=== PATIENT | female | born 1950 | race Caucasian/White ===

== ENCOUNTER 2017-07-27 10:15 | Outpatient (CLI) | payer MEDICARE, BC, SELFPAY ==
[2017-07-27 10:06] VITALS: BMI 27.3
[2017-07-27 11:03] LABS: Chol/HDL Ratio 2.2 (1-3.5); Cholesterol 151 mg/dL (140-200); HDL Cholesterol 68 mg/dL (29-89); LDL Cholesterol 71 mg/dL (0-130); Triglycerides 59 mg/dL (30-200); VLDL Cholesterol 12 mg/dL (0-40)
[2017-07-27 11:12] LABS: Thyroid Stimulating Hormone 1.26 uIU/ml (0.358-3.740)
[2017-07-28 08:28] LABS: Iron 42 ug/dL (27-139); UIBC 298 ug/dL (118-369)
[2017-07-28 14:30] LABS: Iron Saturation 12 % (15-55); Vitamin B12 261 pg/mL (232-1245); Vitamin D 25 Hydroxy 37.6 ng/mL (30.0-100.0)
== END 2017-07-27 10:45 | disposition home or self-care (01) ==
LOC: INF 10:23
PROVIDERS: Visit Provider Internal Medicine
DX: D50.9 Iron deficiency anemia, unspecified (principal); E78.5 Hyperlipidemia, unspecified; R53.83 Other fatigue; E55.9 Vitamin D deficiency, unspecified; Z45.2 Encounter for adjustment and management of vascular access device; Z98.890 Other specified postprocedural states
CPT/HCPCS: 80061; 82607; 82652; 83550; 84443; J1642

== ENCOUNTER 2017-10-09 09:00 | Outpatient (CLI) | payer MEDICARE, BC, SELFPAY ==
[2017-10-09 09:10] VITALS: BMI 25.9
[2017-10-09 09:57] LABS: Basophils % 0.8 % (0.1-2.0); Eosinophils # 0.2 K/mm3 (0.0-0.4); Eosinophils % 2.7 % (0.1-12.0); Hematocrit 41.1 % (37.0-47.0); Hemoglobin 13.5 g/dL (12.2-16.2); Lymphocytes % 36.2 K/mm3 (10-50); Mean Corpuscular HGB Conc 32.8 g/dL (31.8-35.4); Mean Corpuscular Hemoglobin 30.6 pg (27.0-31.2); Mean Corpuscular Volume 93.4 fl (81-99); Mean Platelet Volume 7.3 fl (7.4-10.4); Monocytes # 0.3 K/mm3 (0.1-1.0); Monocytes % 4.5 % (1.7-9.3); Neutrophils # 3.1 K/mm3 (1.8-7.8); Neutrophils % 55.7 % (37.0-80.0); Platelet Count 206 K/mm3 (142-424); Red Cell Distribution Width 14.9 % (11.5-17.5); White Blood Count 5.5 K/mm3 (4.8-10.8)
[2017-10-09 10:09] LABS: Hemoglobin A1C 6.1 % (0.0-7.0)
[2017-10-09 10:27] LABS: Chol/HDL Ratio 2.1 (1-3.5); Cholesterol 158 mg/dL (140-200); HDL Cholesterol 76 mg/dL (29-89); LDL Cholesterol 68 mg/dL (0-130); Triglycerides 70 mg/dL (30-200); VLDL Cholesterol 14 mg/dL (0-40)
[2017-10-09 10:28] LABS: Alanine Aminotransferase 44 U/L (12-78); Albumin Level 2.8 gm/dL (3.4-5.0); Albumin/Globulin Ratio 0.9 (1.1-1.8); Alkaline Phosphatase 87 U/L (46-116); Anion Gap 7.2 mEq/L (5-15); Aspartate Amino Transferase 34 U/L (15-37); Bilirubin,Total 0.3 mg/dL (0.2-1.0); Blood Urea Nitrogen 6 mg/dL (7-18); Calcium 8.2 mg/dL (8.5-10.1); Carbon Dioxide 29 mmol/L (21.0-32.0); Chloride 108 mmol/L (98-107); Creatinine Clearance Estimated 52 mL/min (0-300); Creatinine,Serum 0.68 mg/dL (0.55-1.02); Estimated Glomerular Filt Rate 86 ml/min (>60); GFR (African American) 104 ML/MIN (>60); Globulin 3.1 gm/dl (1.3-3.2); Glucose 87 mg/dL (74-106); Potassium 4.2 mmoL/L (3.5-5.1); Sodium 140 mmol/L (136-145); Total Protein,Serum 5.9 gm/dL (6.4-8.2)
[2017-10-10 08:22] LABS: Iron 91 ug/dL (27-139); UIBC 141 ug/dL (118-369)
[2017-10-10 08:22] LABS: Creatinine, Urine 85.2 mg/dL (Not Estab.); Microalbumin, Urine 3.5 ug/mL (Not Estab.)
[2017-10-10 18:06] LABS: Iron Saturation 39 % (15-55); Vitamin B12 408 pg/mL (232-1245)
== END 2017-10-09 09:45 | disposition home or self-care (01) ==
LOC: INF 09:22
PROVIDERS: Visit Provider Internal Medicine
DX: E53.8 Deficiency of other specified B group vitamins (principal); E11.9 Type 2 diabetes mellitus without complications; E78.5 Hyperlipidemia, unspecified; E55.9 Vitamin D deficiency, unspecified; D50.9 Iron deficiency anemia, unspecified
CPT/HCPCS: 80053; 80061; 82043; 82570; 82607; 82652; 83036; 83540; 83550; 85025; J1642

== ENCOUNTER 2017-11-06 08:55 | Outpatient (CLI) | payer MEDICARE, BC, SELFPAY | END 2017-11-06 09:15 | disposition home or self-care (01) | LOC: INF 09:10 | PROVIDERS: PCP Internal Medicine; Visit Provider Internal Medicine | DX: Z45.2 Encounter for adjustment and management of vascular access device (principal) | CPT/HCPCS: 96523; J1642 ==

== ENCOUNTER 2017-12-22 11:34 | Outpatient (CLI) | payer MEDICARE, BC, SELFPAY | END 2017-12-22 11:49 | disposition home or self-care (01) | LOC: INF 11:34 | PROVIDERS: Visit Provider Internal Medicine | DX: Z45.2 Encounter for adjustment and management of vascular access device (principal) | CPT/HCPCS: 96523; J1642 ==

== ENCOUNTER 2018-01-13 09:22 | Outpatient (CLI) | payer MEDICARE, BC, SELFPAY ==
[2018-01-13 09:28] VITALS: BMI 26.8
[2018-01-13 10:15] LABS: Alanine Aminotransferase 31 U/L (12-78); Alkaline Phosphatase 78 U/L (46-116); Anion Gap 10.5 mEq/L (5-15); Aspartate Amino Transferase 29 U/L (15-37); Bilirubin,Total 0.4 mg/dL (0.2-1.0); Blood Urea Nitrogen 6 mg/dL (7-18); Carbon Dioxide 29 mmol/L (21.0-32.0); Chloride 107 mmol/L (98-107); Creatinine Clearance Estimated 54 mL/min (0-300); Estimated Glomerular Filt Rate 83 ml/min (>60); GFR (African American) 100 ML/MIN (>60); Globulin 3.1 gm/dl (1.3-3.2); Glucose 83 mg/dL (74-106); Potassium 4.5 mmoL/L (3.5-5.1); Sodium 142 mmol/L (136-145); Total Protein,Serum 6.1 gm/dL (6.4-8.2)
[2018-01-13 10:37] LABS: Cholesterol 163 mg/dL (140-200); Triglycerides 54 mg/dL (30-200); VLDL Cholesterol 11 mg/dL (0-40)
[2018-01-13 10:38] LABS: Chol/HDL Ratio 1.8 (1-3.5); HDL Cholesterol 93 mg/dL (29-89); LDL Cholesterol 59 mg/dL (0-130)
== END 2018-01-13 09:55 | disposition home or self-care (01) ==
LOC: INF 09:22
PROVIDERS: Visit Provider Family Medicine
DX: Z45.2 Encounter for adjustment and management of vascular access device (principal); E11.9 Type 2 diabetes mellitus without complications; E78.5 Hyperlipidemia, unspecified
CPT/HCPCS: 80053; 80061; 83036; J1642

== ENCOUNTER 2018-02-10 11:10 | Outpatient (CLI) | payer MEDICARE, BC, SELFPAY | END 2018-02-10 11:30 | disposition home or self-care (01) | LOC: INF 11:18 | PROVIDERS: Visit Provider Internal Medicine | DX: Z45.2 Encounter for adjustment and management of vascular access device (principal) | CPT/HCPCS: 96523; J1642 ==

== ENCOUNTER 2018-08-31 12:08 | Outpatient (CLI) | payer MEDICARE, BC, SELFPAY ==
[2018-08-31 12:16] VITALS: BMI 25.1
[2018-08-31 12:40] LABS: Basophils % 0.7 % (0.1-2.0); Eosinophils # 0.1 K/mm3 (0.0-0.4); Eosinophils % 1.6 % (0.1-12.0); Hematocrit 41.6 % (37.0-47.0); Hemoglobin 13.2 g/dL (12.2-16.2); Lymphocytes # 1.6 K/mm3 (0.7-4.5); Lymphocytes % 29.3 % (10-50); Mean Corpuscular HGB Conc 31.7 g/dL (31.8-35.4); Mean Corpuscular Volume 100.9 fl (81-99); Mean Platelet Volume 8.4 fl (7.4-10.4); Monocytes # 0.3 K/mm3 (0.1-1.0); Monocytes % 5.8 % (1.7-9.3); Neutrophils # 3.3 K/mm3 (1.8-7.8); Neutrophils % 62.6 % (37.0-80.0); Platelet Count 228 K/mm3 (142-424); Red Blood Count 4.12 M/mm3 (4.20-5.40); Red Cell Distribution Width 13.4 % (11.5-17.5); White Blood Count 5.3 K/mm3 (4.8-10.8)
[2018-08-31 12:48] LABS: Alanine Aminotransferase 26 U/L (12-78); Albumin Level 3.1 gm/dL (3.4-5.0); Albumin/Globulin Ratio 1.1 (1.1-1.8); Alkaline Phosphatase 64 U/L (46-116); Amylase 80 U/L (25-115); Anion Gap 12.7 mEq/L (5-15); Aspartate Amino Transferase 20 U/L (15-37); Bilirubin,Total 0.6 mg/dL (0.2-1.0); Blood Urea Nitrogen 8 mg/dL (7-18); Calcium 8.2 mg/dL (8.5-10.1); Carbon Dioxide 27 mmol/L (21.0-32.0); Chloride 107 mmol/L (98-107); Creatinine Clearance Estimated 50 mL/min (50-200); Estimated Glomerular Filt Rate 83 ml/min (>60); GFR (African American) 100 ML/MIN (>60); Globulin 2.9 gm/dl (1.3-3.2); Glucose 82 mg/dL (74-106); Lipase 134 u/L (73-393); Potassium 4.7 mmoL/L (3.5-5.1); Sodium 142 mmol/L (136-145)
[2018-08-31 13:03] LABS: Hemoglobin A1C 5.7 % (0.0-7.0)
== END 2018-08-31 12:35 | disposition home or self-care (01) ==
LOC: INF 12:10
PROVIDERS: PCP Family Medicine; Visit Provider Nurse Practitioner Family
DX: Z51.81 Encounter for therapeutic drug level monitoring (principal); Z79.899 Other long term (current) drug therapy; Z45.2 Encounter for adjustment and management of vascular access device
CPT/HCPCS: 80053; 82150; 83036; 83690; 85025; J1642

== ENCOUNTER 2018-10-04 14:35 | Outpatient (CLI) | payer MEDICARE, BC, SELFPAY | END 2018-10-04 14:59 | disposition home or self-care (01) | LOC: INF 14:35 | PROVIDERS: Visit Provider Nurse Practitioner Family | DX: Z45.2 Encounter for adjustment and management of vascular access device (principal) | CPT/HCPCS: 96523; J1642 ==

== ENCOUNTER 2018-12-13 14:38 | Outpatient (CLI) | payer MEDICARE, BC, SELFPAY ==
[2018-12-13 14:53] VITALS: BMI 26.4
[2018-12-13 15:06] LABS: Basophils % 0.4 % (0.1-2.0); Eosinophils # 0.1 K/mm3 (0.0-0.4); Hematocrit 42.4 % (37.0-47.0); Hemoglobin 12.5 g/dL (12.2-16.2); Lymphocytes # 1.1 K/mm3 (0.7-4.5); Lymphocytes % 17.5 % (10-50); Mean Corpuscular HGB Conc 29.6 g/dL (31.8-35.4); Mean Corpuscular Volume 104.9 fl (81-99); Mean Platelet Volume 8.1 fl (7.4-10.4); Monocytes # 0.3 K/mm3 (0.1-1.0); Monocytes % 5.3 % (1.7-9.3); Neutrophils # 4.8 K/mm3 (1.8-7.8); Neutrophils % 75.9 % (37.0-80.0); Platelet Count 217 K/mm3 (142-424); Red Blood Count 4.04 M/mm3 (4.20-5.40); Red Cell Distribution Width 13.9 % (11.5-17.5); White Blood Count 6.4 K/mm3 (4.8-10.8)
[2018-12-13 15:36] LABS: Alanine Aminotransferase 17 U/L (12-78); Albumin Level 2.9 gm/dL (3.4-5.0); Alkaline Phosphatase 62 U/L (46-116); Anion Gap 14.2 mEq/L (5-15); Aspartate Amino Transferase 21 U/L (15-37); Bilirubin,Total 0.3 mg/dL (0.2-1.0); Blood Urea Nitrogen 9 mg/dL (7-18); Calcium 7.6 mg/dL (8.5-10.1); Carbon Dioxide 24 mmol/L (21.0-32.0); Chloride 111 mmol/L (98-107); Creatinine Clearance Estimated 52 mL/min (50-200); Creatinine,Serum 0.71 mg/dL (0.55-1.02); Estimated Glomerular Filt Rate 81 ml/min (>60); GFR (African American) 98 ML/MIN (>60); Globulin 2.9 gm/dl (1.3-3.2); Glucose 104 mg/dL (74-106); Potassium 4.2 mmoL/L (3.5-5.1); Sodium 145 mmol/L (136-145); Total Protein,Serum 5.8 gm/dL (6.4-8.2)
== END 2018-12-13 14:50 | disposition home or self-care (01) ==
LOC: INF 14:38
PROVIDERS: Emergency Medicine; PCP Family Medicine; Visit Provider Nurse Practitioner Family
DX: Z51.81 Encounter for therapeutic drug level monitoring (principal)
CPT/HCPCS: 80053; 85025

== ENCOUNTER → 2019-09-26 09:32 | Outpatient (CLI) | payer MEDICARE, BC, SELFPAY ==
--- NOTE | 2019-09-26 14:29 | XR_ITS ---
PROCEDURE: XR KNEE RT 4V CLINICAL INDICATION: knee pain COMPARISON: No exams were available for comparison FINDINGS: No fracture or dislocation. No lytic or blastic change. There is normal mineralization. Mild osteoarthritic changes are present involving all 3 compartments with small suprapatellar effusion. A lucency is noted at the lateral femoral condyle region on the Goins view but not redo placode on additional views and may be due to artifact. Follow-up may confirm Other findings:None. IMPRESSION: Mild osteoarthritis with small knee joint effusion. See above for detail Dictated by: Sheldon Garcia MD 09/26/2019 15:36 Electronically signed by Sheldon Garcia MD in [place] 09/26/2019 15:36
== END ==
PROVIDERS: PCP Family Medicine; Visit Provider Family Medicine
DX: Z78.0 Asymptomatic menopausal state; M25.561 Pain in right knee
CPT/HCPCS: 73564; 77080

== ENCOUNTER → 2019-09-30 14:52 | Outpatient (CLI) | payer MEDICARE, BC, SELFPAY ==
--- NOTE | 2019-09-30 15:02 | XR_ITS ---
PROCEDURE: XR HIP RT 2-3V W/PELVIS CLINICAL INDICATION: hip pain COMPARISON: No exams were available for comparison FINDINGS: No fracture or dislocation. No lytic or blastic change. There is normal mineralization. There are mild osteoarthritic changes of the right. There is mild sclerosis of the left SI and are degenerative changes lumbar. There is some increased density along the medial aspect of the left superior pubic ramus nonspecific. Lucent areas present at the inferior aspect of the SI joints both sides the iliac region. IMPRESSION: Mild osteoarthritic change and other nonspecific findings as described. Dictated by: Sheldon Garcia MD 09/30/2019 15:26 Electronically signed by Sheldon Garcia MD in [facility] 09/30/2019 15:26
--- NOTE | 2019-09-30 15:02 | XR_ITS ---
PROCEDURE: XR LUMBAR SPINE 6V W BENDING CLINICAL INDICATION: back pain COMPARISON: No exams were available for comparison FINDINGS: There is degenerative disc disease at L1-L2 L2-L3 and L3-L4. There is 5 mm anterolisthesis of L5 on S1 and 5 mm retrolisthesis of L3 on L4. There is lumbar scoliosis convex right with endplate hypertrophic changes at L1-L2 and L3. There is sclerosis of the SI joint on the left. No acute fracture or dislocation is evident. No lytic or blastic change. There is thoracolumbar kyphosis. Other findings:None. IMPRESSION: The scoliosis with kyphosis and lumbar spondylosis as detailed Dictated by: Sheldon Garcia MD 09/30/2019 15:50 Electronically signed by Sheldon Garcia MD in [place] 09/30/2019 15:50
== END ==
PROVIDERS: PCP Family Medicine; Visit Provider Orthopaedic Surgery
DX: M54.5 Low back pain; M25.551 Pain in right hip
CPT/HCPCS: 72114; 73502

== ENCOUNTER 2019-10-03 10:51 | Outpatient (CLI) | payer MEDICARE, BC, SELFPAY | END 2019-10-03 11:10 | disposition home or self-care (01) | LOC: INF 10:51 | PROVIDERS: Visit Provider Nurse Practitioner Family | DX: Z45.2 Encounter for adjustment and management of vascular access device (principal) | CPT/HCPCS: 96523; J1642 ==

== ENCOUNTER 2019-10-05 08:43 | Outpatient (RCR) | payer MEDICARE, BC, SELFPAY ==
--- NOTE | 2019-10-05 10:23 | HMH.PTOPEV ---
PT Outpatient Evaluation Rehab PT Outpatient Evaluation Start: 10/05/19 09:18 Freq: Status: Active Protocol: Document 10/05/19 09:31 SARAH (Rec: 10/05/19 10:22 SARAH [id number]) Electronically Signed By Benjamin Dunn, PT 10/05/19 09:31 Outpatient Therapy Subjective History Subjective History Pt reports h/o chronic LBP for ~20+ yrs, w/ h/o scoliosis as well. Pt reports current exacerbation since falling in , 'I blacked out, then my back started hurting again '. Pt reports R>L sided LBP with radicular s/s down RLE to estrada/calf area. PMH: B foot neuropathy, DM Chief Complaint Pain,Stiff,Paresthesia, Weakness Symptom Type Ache,Sharp,Dull,Numbness, Tingling Symptoms Relieved By Rest/Positioning,Heat Symptoms Aggravated By Bending/Stooping,Physical Activity,Lifting Prior Functional Limitations Lifting,Housework Current Functional Limitations Lifting,Housework,Sitting, Bending/Stooping Symptom Description Constant but Variable Level of pain today (0-10) 4 Pain scale - at its best (0-10) 4 Pain scale - at its worst (0-10) 8 Lumbopelvic Eval Posture Thoracic Spine Posture Standing Position Flexible Scoliosis on (R) Lumbar Spine Posture Standing Position Fixed Scoliosis on (L) Assistive device Assistive Devices None / NA Gait Observation General Gait Pattern Observation Antalgic Gait Palapation tenderness bilateral thoracic spinal tenderness Yes: 2-3/4 lumbar spinal tenderness Yes: 3/4 paraspinal tenderness Yes: 3/4 buttock tenderness Yes: 2-3/4 Lumbar/Sacral Palpation Findings Tenderness,Muscle Guarding Accessory Movement T-spine Vertebrae Accessory Movements Central P/A [place] that Elicit Symptoms T10 bilateral T11 bilateral T12 bilateral L-spine Vertebrae Accessory Movements Central P/A [place] that [place]licit Symptoms L2 bilateral L3 bilateral L4 bilateral L5 bilateral S1 bilateral Range of Motion Lumbar Spine Active Flexion Range of 0-50 Motion (degrees) Lumbar Spine Active Extension Range of 0-10 Motion (degrees) Left Lumbar Spine Lateral Flexion Active 0-20 Range of Motion (degrees) Rig
== END 2019-10-05 09:59 | disposition home or self-care (01) ==
LOC: PT 08:43
PROVIDERS: PCP Family Medicine; Visit Provider Orthopaedic Surgery
DX: M70.61 Trochanteric bursitis, right hip (principal)
CPT/HCPCS: 97010; 97035; 97110; 97163

== ENCOUNTER 2019-10-24 13:35 | Emergency (ER) | payer MEDICARE, BC, SELFPAY ==
[2019-10-24] VITALS (7 sets, daily range): BP systolic 117–129; BP diastolic 62–74; PULSE 70; RESP 12–18; TEMP 36.4–36.7; O2SAT 95–99; BMI 25.4
--- NOTE | 2019-10-24 13:44 | ECG_ITS ---
APPROVED REPORT Exam: Resting ECG HR:70 bpm ECG Measurements Heart Rate 70 AXES VA 86 P 2 QRSd 178 QRS -82 QT 464 T 81 QTc 501 <Conclusion> AV sequential or dual chamber electronic pacemaker Electronically signed by : Yared Murguia, 10/26/2019 17:33:01
--- NOTE | 2019-10-24 13:55 | XR_ITS ---
PROCEDURE: XR CHEST PORTABLE CLINICAL HISTORY: syncope Shortness of air, syncope COMPARISON: No exams were available for comparison FINDINGS: The cardiomediastinal silhouette and pulmonary vascularity are within normal limits. There is a bipolar pacemaker present from left subclavian approach in there is a right subclavian MediPort catheter with the tip region the SVC. Surgical clips are present in the left axilla and there are metallic anchors over the proximal humerus on right. The lungs are clear. No acute bony finding. IMPRESSION: As above, no acute finding Dictated by: Sheldon Garcia MD 10/24/2019 17:54 Sheldon Garcia MD in [place] 10/24/2019 17:54
--- NOTE | 2019-10-24 13:55 | CT_ITS ---
PROCEDURE: CT HEAD/BRAIN WO CON CLINICAL INDICATION: syncope Head injury with headache/pain, contusion, abrasion or hematoma Injury to the right side of the head COMPARISON: No exams were available for comparison TECHNIQUE: Axial images obtained. All CT scans at the facility use one or more dose reduction, viz: automated exposure control, ma/kV adjustment per patient size (including targeted exams where dose is matched to indication, i.e. head), or iterative reconstruction technique. FINDINGS: No midline shift, mass effect, intracranial hemorrhage, hydrocephalus, or extra-axial fluid collection is evident. There is generalized atrophy with hypoattenuation of the periventricular white matter consistent with microangiopathic changes. The calvarium has an unremarkable appearance. No mastoid effusion. No sinus air-fluid level. IMPRESSION: No acute intracranial finding Dictated by: Sheldon Garcia MD 10/24/2019 14:35 Sheldon Garcia MD in [place] 10/24/2019 14:35
--- NOTE | 2019-10-24 14:07 | HMH.EDSYNC ---
ED Disposition Clinical Impression: Syncope Qualifiers: Syncope type: unspecified Qualified Code(s): R55 - Syncope and collapse Chest pain Qualifiers: Chest pain type: unspecified Qualified Code(s): R07.9 - Chest pain, unspecified Disposition: Home, Self-Care Condition on Discharge: Good Instructions: DI for Syncope in Adults (Fainting), DI for Chest Pain Additional Instructions: Follow-up with Dr. Rodriguez later this week. Call tomorrow morning or this afternoon to set up an appointment. Referrals: Charles Barrett MD [Primary Care Provider] - 3 days - Critical Care Critical Care Time: No Attestation: On 10/24/19, the high probability of a clinically significant, sudden or life threatening deterioration of the following system(s) required my full and direct attention, intervention and personal management. The time I documented below is in addition to time spent performing reported procedures but includes the following listed in this critical care notation. Medical Decision Making - Medical Records Medical records reviewed: Yes: I reviewed the patient's medical records. - Radhames Inquiry Pt receiving controlled substance: No Vital Signs: 10/24/19 13:36 10/24/19 13:59 10/24/19 14:06 Temperature 97.5 F L Temperature Source Oral Pulse Rate [Orthostatic Lying Radial] 70 Pulse Rate [Orthostatic Sitting Radial] 70 Pulse Rate [Orthostatic Standing Radial] 70 Pulse Rate [Right] 70 70 Respiratory Rate 12 12 Blood Pressure [Orthostatic Lying Right Arm] 129/74 Blood Pressure [Orthostatic Sitting Right Arm] 129/69 Blood Pressure [Orthostatic Standing Right Arm] 117/72 Blood Pressure [Right Arm] 129/74 122/69 Blood Pressure Mean [Right Arm] 92 86 02 Sat by Pulse Oximetry 96 95 10/24/19 14:30 10/24/19 15:00 10/24/19 15:30 Temperature Temperature Source Pulse Rate [Orthostatic Lying Radial] Pulse Rate [Orthostatic Sitting Radial] Pulse Rate [Orthostatic Standing Radial] Pulse Rate [Right] 70 70 70 Respiratory Rate 16 12 18 Blood Pressure [Orthostatic Lying Right Arm] Blood Pressure [Orthostatic Sitting Right Arm] Blood Pressure [Orthostatic Standing Right Arm] Blood Pressure [Right Arm] 123/62 120/72 128/69 Blood Pressure Mean [Right Arm] 82 88 88 02 Sat by Pulse Oximetry 99 98 96 - Lab Data Lab results reviewed: Yes: I reviewed the patient's lab results. Lab Results 10/24/19 14:23: WBC 8.7, RBC 3.77 L, Hgb 12.5, Hct 38.3, MCV 101.4 H, MCH 33.0 H, MCHC 32.6, RDW 13.4, Plt Count 168, MPV 8.4, Neut % (Auto) 75.4, Lymph % (Auto) 19.3, [place] % (Auto) 4.2, Eos % (Auto) 0.7, Baso % (Auto) 0.4, Neut # (Auto) 6.6, Lymph # (Auto) 1.7, [place] # (Auto) 0.4, Eos # (Auto) 0.1, Baso # (Auto) 0.0 10/24/19 14:23: Sodium 137, Potassium 4.2, Chloride 106, Carbon Dioxide 28, Anion Gap 7.2, BUN 15, Creatinine 0.70, Estimated Creat Clear 48, Estimated GFR 82, Est GFR ( Amer) 100, Glucose 96, Calcium 8.7, Total Bilirubin 0.4, AST 31, ALT 19, Alkaline Phosphatase 71, Troponin I < 0.01, Total Protein 5.8 L, Albumin 3.3 L, Globulin 2.5, Albumin/Globulin Ratio 1.3, Lipase 235, TSH 0.65, Thyroxine (T4) 8.7 10/24/19 14:23: PT 21.2 H, INR 2.17 H, APTT 52.8 H* 10/24/19 14:40: Urine Color Yellow, Urine Appearance Clear, Urine pH 6.0, Ur Specific [place] 1.015, Urine Protein Negative, Urine Glucose (UA) Negative, Urine Ketones Negative, Urine Blood Negative, Urine Nitrate Negative, Urine Bilirubin Negative, Urine Urobilinogen 0.2, Ur Leukocyte Esterase Negative, Urine WBC 3-5, Ur Squamous Epith Cells Occasional, Urine Bacteria Trace Result diagrams: 10/24/19 14:23 10/24/19 14:23 Orders (Tests/Meds): ED MEDICATIONS Discontinued Medications Generic Name Dose Route Start Last Admin Trade Name Freq PRN Reason Stop Dose Admin Heparin Sodium (Porcine) 300 unit 10/24/19 14:27 10/24/19 14:27 Heparin Lock Flush 500 Units/5ml IV 10/24/19 14:28 1 dose ONCE ONE Administration
--- NOTE | 2019-10-24 14:23 | PC.NURSE ---
Pt with rad
[2019-10-24 14:30] LABS: Chloride 106 mmol/L (98-107); Potassium 4.2 mmoL/L (3.5-5.1); Sodium 137 mmol/L (136-145)
[2019-10-24 14:33] LABS: Alanine Aminotransferase 19 U/L (12-78); Albumin Level 3.3 g/dl (3.5-5.0); Albumin/Globulin Ratio 1.3 (1.1-1.8); Alkaline Phosphatase 71 U/L (38-126); Anion Gap 7.2 mEq/L (5-15); Aspartate Amino Transferase 31 U/L (14-36); Bilirubin,Total 0.4 mg/dl (0.2-1.3); Blood Urea Nitrogen 15 mg/dl (7-17); Calcium 8.7 mg/dl (8.4-10.2); Carbon Dioxide 28 mmol/L (22.0-30.0); Creatinine Clearance Estimated 48 mL/min (50-200); Estimated Glomerular Filt Rate 82 ml/min (>60); GFR (African American) 100 ML/MIN (>60); Globulin 2.5 g/dL (1.3-3.2); Glucose 96 mg/dl (74-100); Lipase 235 U/L (23-300); Total Protein,Serum 5.8 g/dl (6.3-8.2)
[2019-10-24 14:39] LABS: Basophils % 0.4 % (0.1-2.0); Eosinophils # 0.1 K/mm3 (0.0-0.4); Eosinophils % 0.7 % (0.1-12.0); Hematocrit 38.3 % (37.0-47.0); Hemoglobin 12.5 g/dL (12.2-16.2); Lymphocytes # 1.7 K/mm3 (0.7-4.5); Lymphocytes % 19.3 % (10-50); Mean Corpuscular HGB Conc 32.6 g/dL (31.8-35.4); Mean Corpuscular Volume 101.4 fl (81-99); Mean Platelet Volume 8.4 fl (7.4-10.4); Monocytes # 0.4 K/mm3 (0.1-1.0); Monocytes % 4.2 % (1.7-9.3); Neutrophils # 6.6 K/mm3 (1.8-7.8); Neutrophils % 75.4 % (37.0-80.0); Platelet Count 168 K/mm3 (142-424); Red Blood Count 3.77 M/mm3 (4.20-5.40); Red Cell Distribution Width 13.4 % (11.5-17.5); White Blood Count 8.7 K/mm3 (4.8-10.8)
[2019-10-24 14:51] LABS: T4 (Thyroxine) 8.7 ug/dl (5.53-11.0)
[2019-10-24 14:52] LABS: Appearance,Urine CLEAR (Clear); Bilirubin,Urine Negative (Negative); Blood, Urine Negative (Negative); Color,Urine YELLOW (Yellow); Glucose,Urine (UA) Negative (Negative); Ketones,Urine Negative (Negative); Leukocyte Esterase,Urine Negative (Negative); Microscopic, Urine URINE MICROSCOPIC (MICROSCOPIC); Nitrate,Urine Negative (Negative); Protein,Urine Negative (Negative); Specific Gravity, Urine 1.015 (1.005-1.030); Urobilinogen,Urine 0.2 EU/dl (0.2)
[2019-10-24 15:01] LABS: Troponin I < 0.01 ng/ml (0.00-0.034)
[2019-10-24 15:04] LABS: Thyroid Stimulating Hormone 0.65 uIU/mL (0.465-4.68)
[2019-10-24 15:06] LABS: Bacteria,Urine Trace /lpf; Squamous Epithelial Cell,Urine Occasional #/hpf (0-5)
--- NOTE | 2019-10-24 15:17 | PC.NURSE ---
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
[2019-10-24 15:21] LABS: INR 2.17 (0.9-1.1); Prothrombin Time 21.2 seconds (9.4-11.8)
[2019-10-24 15:27] LABS: Activated Partial Thrombo Time 52.8 seconds (23.6-34.0)
--- NOTE | 2019-10-24 15:33 | PC.NURSE ---
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
--- NOTE | 2019-10-24 15:37 | PC.NURSE ---
speaking to Dr Agustin
== END 2019-10-24 16:10 | disposition home or self-care (01) ==
PROVIDERS: Emergency Provider Emergency Medicine; PCP Family Medicine
DX: R55 Syncope and collapse (principal); I48.20 Chronic atrial fibrillation, unspecified; Z95.0 Presence of cardiac pacemaker; E78.5 Hyperlipidemia, unspecified; Z88.5 Allergy status to narcotic agent; Z90.710 Acquired absence of both cervix and uterus
CPT/HCPCS: 70450; 71045; 80053; 81001; 83690; 84436; 84443; 84484; 85025; 85610; 85730; 93005; 99284; J1642

== ENCOUNTER 2019-10-28 15:44 | Observation (INO) | payer MEDICARE, BC, SELFPAY ==
[2019-10-28] VITALS (8 sets, daily range): BP systolic 102–144; BP diastolic 71–87; PULSE 70–78; RESP 16–20; TEMP 34.7–36.7; O2SAT 97–100; BMI 23.0; BMI 23.8
--- NOTE | 2019-10-28 15:37 | ECG_ITS ---
APPROVED REPORT Exam: Resting ECG HR:70 bpm ECG Measurements Heart Rate 70 AXES HI 80 P 8 QRSd 182 QRS -80 QT 502 T 74 QTc 542 <Conclusion> AV sequential or dual chamber electronic pacemaker Electronically signed by : Yared Murguia, 10/29/2019 05:52:58
--- NOTE | 2019-10-28 15:58 | XR_ITS ---
PROCEDURE: XR CHEST PORTABLE CLINICAL HISTORY: chest paiin COMPARISON: CR XR CHEST PORTABLE from 10/24/2019 FINDINGS: Normal heart size. There is a bipolar pacemaker from left subclavian approach in there is a right subclavian MediPort catheter with the tip in the region of the distal SVC. There are low lung volumes with mild vascular crowding or atelectasis/infiltrate in the right middle lobe medially. The remaining lungs are clear. Postsurgical changes right shoulder with mild osteoarthritic change IMPRESSION: As above. Patchy density right middle lobe medially which may be due to an area of atelectasis or infiltrate Dictated by: Sheldon Garcia MD 10/28/2019 17:05 Sheldon Garcia MD in [place] 10/28/2019 17:05
--- NOTE | 2019-10-28 15:58 | HMH.EDGENADL ---
ED Disposition Clinical Impression: Syncope and collapse Disposition: Admitted as Observation Condition on Discharge: Good - Critical Care Critical Care Time: No Attestation: On 10/28/19, the high probability of a clinically significant, sudden or life threatening deterioration of the following system(s) required my full and direct attention, intervention and personal management. The time I documented below is in addition to time spent performing reported procedures but includes the following listed in this critical care notation. Medical Decision Making - Radhames Inquiry Pt receiving controlled substance: No Vital Signs: 10/28/19 15:44 10/28/19 17:35 10/28/19 18:00 Temperature 94.5 F L 97.6 F Temperature Source Oral Oral Pulse Rate Pulse Rate [Left Radial] 70 70 Respiratory Rate 20 20 Blood Pressure Blood Pressure [Right Arm] 122/87 102/71 L Blood Pressure Mean [Right Arm] 98 81 Blood Pressure Source [Right Arm] Automatic Cuff Blood Pressure Position [Right Arm] Sitting Sitting 02 Sat by Pulse Oximetry 98 100 Oxygen Delivery Method Room Air 10/28/19 18:16 10/28/19 19:22 10/28/19 19:30 Temperature 98.1 F Temperature Source Oral Pulse Rate 70 Pulse Rate [Left Radial] 70 70 Respiratory Rate 20 20 18 Blood Pressure 132/75 Blood Pressure [Right Arm] 144/78 H 132/75 Blood Pressure Mean [Right Arm] 100 94 Blood Pressure Source [Right Arm] Automatic Cuff Automatic Cuff Blood Pressure Position [Right Arm] Sitting Sitting 02 Sat by Pulse Oximetry 99 100 Oxygen Delivery Method Room Air Room Air Room Air - Lab Data Lab Results 10/28/19 16:37: WBC 11.0 H, RBC 3.79 L, Hgb 12.8, Hct 38.2, MCV 100.8 H, MCH 33.8 H, MCHC 33.5, RDW 13.4, Plt Count 189, MPV 8.1, Neut % (Auto) 82.5 H, Lymph % (Auto) 12.2, [place] % (Auto) 3.8, Eos % (Auto) 1.3, Baso % (Auto) 0.3, Neut # (Auto) 9.1 H, Lymph # (Auto) 1.3, [place] # (Auto) 0.4, Eos # (Auto) 0.1, Baso # (Auto) 0.0 10/28/19 16:37: Sodium 136, Potassium 3.9, Chloride 104, Carbon Dioxide 25, Anion Gap 10.9, BUN 12, Creatinine 0.70, Estimated Creat Clear 48, Estimated GFR 82, Est GFR ( Amer) 100, Glucose 195 H, Calcium 8.5, Troponin I < 0.01 10/28/19 16:37: PT 36.8 H, INR 3.90 H 10/28/19 16:37: Lactate 1.8 10/28/19 16:37: Total Bilirubin 0.4, Direct Bilirubin 0.1, Conjugated Bilirubin 0.0, Indirect Bilirubin 0.3, Unconjugated Bilirubin 0.4, AST 35, ALT 23, Alkaline Phosphatase 66, Total Protein 5.8 L, Albumin 3.4 L 10/28/19 16:37: SARS-CoV-2 IgG Ab (Rapid) Negative, SARS-CoV-2 IgM Ab (Rapid) Negative 10/28/19 19:02: Troponin I < 0.01 Result diagrams: 10/28/19 16:37 10/28/19 16:37 Orders (Tests/Meds): ED MEDICATIONS Generic Name Dose Route Start Last Admin Trade Name Freq PRN Reason Stop Dose Admin Acetaminophen 650 mg 10/28/19 19:33 Acetaminophen 325mg Tab PO 11/27/19 19:32 Q4HP PRN As Needed for Fever or Pain Dronedarone 400 mg 10/28/19 21:00 Multaq 400mg Tablet PO 11/27/19 20:59 BID VANNESSA Gabapentin 900 mg 10/28/19 21:00 Neurontin 300mg Capsule PO 11/27/19 20:59 HS VANNESSA Sodium Chloride 1,000 mls @ 75 mls/hr 10/28/19 19:33 Sod Chlor 0.9% 1000ml Bag IV 11/27/19 18:44 .[id number] VANNESSA Levetiracetam 500 mg 10/28/19 21:00 Keppra 500mg Tablet PO 11/27/19 20:59 BID VANNESSA Non-Formulary Medication 60 mg 10/28/19 21:00 Raloxifene Hcl PO 11/27/19 20:59 HS VANNESSA Non-Formulary Medication 100 mg 10/28/19 21:00 Trazodone Hcl PO 11/27/19 20:59 HS VANNESSA Ondansetron HCl 4 mg 10/28/19 19:33 Zofran 4mg/2ml Vial IV 11/27/19 19:32 Q8HP PRN Nausea Ranolazine 1,000 mg 10/28/19 21:00 Ranexa 500mg Er Tablet PO 11/27/19 20:59 BID VANNESSA Venlafaxine HCl 37.5 mg 10/29/19 09:00 Effexor 37.5mg Tablet PO 11/28/19 08:59 DAILY VANNESSA Discontinued Medications Generic Name Dose Route Start Last Admin Trade Name Freq PRN Reason Stop Dose Admin
--- NOTE | 2019-10-28 15:59 | CT_ITS ---
PROCEDURE: CT HEAD/BRAIN WO CON CLINICAL INDICATION: syncope Syncope COMPARISON: CT CT HEAD/BRAIN WO CON from 10/24/2019 TECHNIQUE: Axial images obtained. All CT scans at the facility use one or more dose reduction, viz: automated exposure control, ma/kV adjustment per patient size (including targeted exams where dose is matched to indication, i.e. head), or iterative reconstruction technique. FINDINGS: No midline shift, mass effect, intracranial hemorrhage, hydrocephalus, or extra-axial fluid collection is evident. The calvarium has an unremarkable appearance. No mastoid effusion. There is mild mucosal thickening of the ethmoid sinuses. IMPRESSION: No acute intracranial finding Dictated by: Sheldon Garcia MD 10/28/2019 16:59 Sheldon Garcia MD in [place] 10/28/2019 16:59
[2019-10-28 16:42] LABS: Basophils % 0.3 % (0.1-2.0); Eosinophils # 0.1 K/mm3 (0.0-0.4); Eosinophils % 1.3 % (0.1-12.0); Hematocrit 38.2 % (37.0-47.0); Hemoglobin 12.8 g/dL (12.2-16.2); Lymphocytes # 1.3 K/mm3 (0.7-4.5); Lymphocytes % 12.2 % (10-50); Mean Corpuscular HGB Conc 33.5 g/dL (31.8-35.4); Mean Corpuscular Hemoglobin 33.8 pg (27.0-31.2); Mean Corpuscular Volume 100.8 fl (81-99); Mean Platelet Volume 8.1 fl (7.4-10.4); Monocytes # 0.4 K/mm3 (0.1-1.0); Monocytes % 3.8 % (1.7-9.3); Neutrophils # 9.1 K/mm3 (1.8-7.8); Neutrophils % 82.5 % (37.0-80.0); Platelet Count 189 K/mm3 (142-424); Red Blood Count 3.79 M/mm3 (4.20-5.40); Red Cell Distribution Width 13.4 % (11.5-17.5)
[2019-10-28 16:48] LABS: Chloride 104 mmol/L (98-107); Potassium 3.9 mmoL/L (3.5-5.1); Sodium 136 mmol/L (136-145)
[2019-10-28 16:51] LABS: Anion Gap 10.9 mEq/L (5-15); Blood Urea Nitrogen 12 mg/dl (7-17); Carbon Dioxide 25 mmol/L (22.0-30.0); Creatinine Clearance Estimated 48 mL/min (50-200); Estimated Glomerular Filt Rate 82 ml/min (>60); GFR (African American) 100 ML/MIN (>60)
[2019-10-28 16:52] LABS: Calcium 8.5 mg/dl (8.4-10.2); Glucose 195 mg/dl (74-100); Lactic Acid 1.8 mmol/L (0.7-2.1); Prothrombin Time 36.8 seconds (9.4-11.8)
[2019-10-28 17:12] LABS: Troponin I < 0.01 ng/ml (0.00-0.034)
[2019-10-28 17:57] LABS: Alanine Aminotransferase 23 U/L (12-78); Albumin Level 3.4 g/dl (3.5-5.0); Alkaline Phosphatase 66 U/L (38-126); Aspartate Amino Transferase 35 U/L (14-36); Bilirubin,Direct 0.1 mg/dl (0.0-0.4); Bilirubin,Indirect 0.3 mg/dL (0.0-0.9); Bilirubin,Total 0.4 mg/dl (0.2-1.3); Bilirubin,Unconjugated 0.4 mg/dL (0.0-1.1); Total Protein,Serum 5.8 g/dl (6.3-8.2)
--- NOTE | 2019-10-28 18:00 | PC.NURSE ---
pt ambulated to the bathroom with assistance as pt was coming out of bathroom she suddenly became very lethargic unable to stand, not speaking unable to focus with eyes. lasted for approx 45 seconds. pt placed back in bed b/p 102/70 hr 68 paced rhythm resp 18 non-labored o2 sat 100%.family at bedside says that was the way she acted at home . Dr rogers aware
--- NOTE | 2019-10-28 18:31 | PC.NURSE ---
DR LE SPEAKING TO DR SKY
[2019-10-28 19:31] LABS: Coronavirus 19 IgG Antibody Negative (Negative); Coronavirus 19 IgM Antibody Negative (Negative)
[2019-10-28 19:48] LABS: Troponin I < 0.01 ng/ml (0.00-0.034)
--- NOTE | 2019-10-28 20:10 | PC.NURSE ---
PATIENT CAME TO THE FLOOR AT 2008 WITH ASSISTANCE FROM RAMIRO SANCHEZ
--- NOTE | 2019-10-28 20:29 | HMH.ACPN2 ---
Internal Medicine - PN: Subj *Date: 10/28/19 *Time: 20:29 Interval history: THIS FROM THE ER NOTE: The patient has been having episodes of syncope and dizziness/near syncope since Thursday 6 days ago. The first day she just had an episode where her legs were weak and she felt like she might pass out, but she did not. On Thursday she had a syncopal episode and was seen in the emergency room. Work-up was negative. Her pacemaker was interrogated. CT scan of the head was negative. Cardiology was consulted. She spoke with her brim curler on Thursday, the next day, and they felt her symptoms were more likely related to blood sugar. She has persisted in having daily episodes of leg weakness and a feeling of presyncope. She saw Dr. Barrett in the office today. Then, this afternoon, she had another episode of syncope. She was apparently in a corn patch and had a syncopal episode between 2 rows of corn and was found diaphoretic. In between episodes she has felt well. She denies chest pain or shortness of breath. Syncopal episodes. With loss of consciousness. No loss of bowel or bladder control. Some degree of confusion after episodes. Past history of seizures and takes Keppra. Followed by Dr. Zackary Beltran neurology. Followed by Dr. Russell, cardiology. Pacemaker interrogations have been normal. Exam Vital signs and Labs for Last 24 Hours: Temp Pulse Resp BP Pulse Ox 98.1 F 70 18 132/75 100 10/28/19 19:30 10/28/19 19:30 10/28/19 19:30 10/28/19 19:30 10/28/19 19:22 Laboratory Results - last 24 hr 10/28/19 16:37: WBC 11.0 H, RBC 3.79 L, Hgb 12.8, Hct 38.2, MCV 100.8 H, MCH 33.8 H, MCHC 33.5, RDW 13.4, Plt Count 189, MPV 8.1, Neut % (Auto) 82.5 H, Lymph % (Auto) 12.2, [place] % (Auto) 3.8, Eos % (Auto) 1.3, Baso % (Auto) 0.3, Neut # (Auto) 9.1 H, Lymph # (Auto) 1.3, [place] # (Auto) 0.4, Eos # (Auto) 0.1, Baso # (Auto) 0.0 10/28/19 16:37: Sodium 136, Potassium 3.9, Chloride 104, Carbon Dioxide 25, Anion Gap 10.9, BUN 12, Creatinine 0.70, Estimated Creat Clear 48, Estimated GFR 82, Est GFR ( Amer) 100, Glucose 195 H, Calcium 8.5, Troponin I < 0.01 10/28/19 16:37: PT 36.8 H, INR 3.90 H 10/28/19 16:37: Lactate 1.8 10/28/19 16:37: Total Bilirubin 0.4, Direct Bilirubin 0.1, Conjugated Bilirubin 0.0, Indirect Bilirubin 0.3, Unconjugated Bilirubin 0.4, AST 35, ALT 23, Alkaline Phosphatase 66, Total Protein 5.8 L, Albumin 3.4 L 10/28/19 16:37: SARS-CoV-2 IgG Ab (Rapid) Negative, SARS-CoV-2 IgM Ab (Rapid) Negative 10/28/19 19:02: Troponin I < 0.01 I & O for Last 24 hours: Intake & Output 10/26/19 10/27/19 10/28/19 10/29/19 11:59 11:59 11:59 11:59 Intake Total 1000 / 1000 Balance 1000 / 1000 Weight 130 lb - Constitutional no acute distress - *Routine HEENT Exam Head: Present: normocephalic Eye: Present: PERRL ENT: Present: mucous membranes moist - *Routine Neck Exam Absent: JVD, carotid bruit - *Routine Respiratory Exam Present: CTA bilaterally - *Routine Cardiovascular Exam Present: RRR (72 1 ectopic heard) - *Routine Abdominal Exam Present: soft. Absent: tenderness - *Routine Extremities Exam Absent: edema Assessment and Plan (1) Status cardiac pacemaker Current visit: Yes Status: Acute Category: Surgical Code(s): Z95.0 - Presence of cardiac pacemaker (2) History of seizures Current visit: Yes Status: Acute Category: Medical Code(s): Z87.898 - Personal history of other specified conditions (3) Syncope and collapse Current visit: Yes Status: Acute Category: Medical Code(s): R55 - Syncope and collapse - Assessment and plan all Dx Assessment and Plan for all problems:: See orders. Telemetry.
[2019-10-28 23:49] LABS: Troponin I < 0.01 ng/ml (0.00-0.034)
[2019-10-29] VITALS (9 sets, daily range): BP systolic 97–125; BP diastolic 52–73; PULSE 69–80; RESP 16–20; TEMP 36.7–37; O2SAT 95–100; BMI 23.6
[2019-10-29 04:00] LABS: POC Glucose,Bedside 63 (70-110)
[2019-10-29 04:00] LABS: POC Glucose,Bedside 101 (70-110)
[2019-10-29 04:00] LABS: POC Glucose,Bedside 184 (70-110)
--- NOTE | 2019-10-29 05:00 | PC.NURSE ---
Pt rested well with eyes closed this shift. Alert and oriented x4. Pt denies pain. Has tolerated ambulation to and from bathroom well with standby assist from staff. Pt states she occasionally uses a cane at home for ambulation assist, but has not needed it recently therefore did not bring it with her. brought in home meds this evening. Meds in drawer, needs to be verified with pharm. stated he would bring in a copy of her living will today to have on file. Thus far this shift, pt has not had any syncope. Will continue to monitor closely. Tolerates ra well with no c/o soa. Bilateral lungs noted clear t/o upon auscultation. Paced rhythm noted on telemetry monitor t/o shift. No edema noted. VSS. Remains safe. Call light within reach.
--- NOTE | 2019-10-29 08:41 | HMH.HP ---
*Admission Date: 10/28/19 <DeborahAngelica 10/29/19 08:53> *Chief complaint: syncope <Angelica Cabrera 10/29/19 08:53> *History of present illness: Ms. Flores is a 69-year-old female with a history of asthma, type 2 diabetes, [place], hyperlipidemia, CHF, pacemaker, A. fib, seizures, and GERD who has had numerous syncopal episodes. On Thursday, she just had an episode where her legs felt weak and she felt like she could pass out, but did not. On Thursday, she had a syncopal episode and was taken to the emergency room. Her work-up was negative and her pacemaker was interrogated. A CT of her head was negative. Cardiology was consulted. Her application support engineer is Dr. Russell and she spoke with him on Thursday. He felt her symptoms were likely more related to her blood sugar. She had a follow-up with Dr. Barrett yesterday in the office and he also felt the etiology was likely hypoglycemia in light of a negative cardiac work-up. After her appointment, she went home and was in her corn patch when she had another syncopal episode. She states her found her on the ground and she was diaphoretic. He brought her to the emergency room where she was subsequently admitted for further work-up. She has had some degree of confusion after these episodes. She has a history of seizures and is on Keppra, but no seizure activity was noted. She is followed by Dr. Beltran with neurology. Since admission, she has only had one episode where she felt weak and slightly dizzy this morning. She has had no further syncopal episodes. <Angelica Cabrera 10/29/19 08:53> [facility] History I have reviewed the patient's past medical history: Yes <Angelica Cabrera 10/29/19 08:53> Medical History: Reports:: Asthma, Atrial Fibrillation, Cancer, Congestive Heart Failure, Diabetes Mellitus Type 2, Gastroesophageal Reflux Disease(GERD), Hyperlipidemia, Internal Pacemaker, Kidney Stones, Myocardial Infarction, Seizures Denies:: Diabetes Mellitus Type 1, MRSA <Angelica Cabrera 10/29/19 08:53> *Have you ever received a pneumonia vaccine?: Yes <Angelica Cabrera 10/29/19 08:53> *Have you received a flu vaccine this season?: No <Angelica Cabrera 10/29/19 08:53> Other Medical History: Reports: Cataracts <Angelica Cabrera 10/29/19 08:53> Laterality Cases: Right: Arthroscopy Shoulder, Bilateral: Arthroscopy Knee, Tonsillectomy <Angelica Cabrera 10/29/19 08:53> Other Surgeries: Yes: Colonoscopy, Hysterectomy-Total, Pacemaker, Other (Rt shoulder RCR, Gastric bypass, kidney stone removal, breast biopsies) <Angelica Caberra 10/29/19 08:53> Amputation: No <Angelica Cabrera 10/29/19 08:53> Fractures: No <Angelica Cabrera 10/29/19 08:53> - *Social History Last grade of school completed: Advanced degree <Angelica Cabrera 10/29/19 08:53> Smoking Status: Never smoker <Angelica Cabrera 10/29/19 08:53> Alcohol Intake: current <Angelica Cabrera 10/29/19 08:53> Alcohol Intake Frequency:: 0-2 drinks per day <Angelica Cabrera 10/29/19 08:53> *Occupational Status:: retired <Angelica Cabrera 10/29/19 08:53> Housing: house <Angelica Cabrera 10/29/19 08:53> Household Members: spouse <Angelica Cabrera 10/29/19 08:53> *Travel in the last 8 weeks: None <Angelica Cabrera 10/29/19 08:53> Family Hx:: Coronary Artery Disease, Heart Attack, Hypertension, Stroke <Angelica Cabrera 10/29/19 08:53> Review of Systems - Constitutional Reports weakness, Denies fever(s) <Angelica Cabrera 10/29/19 08:53> - Eyes Denies blurry vision, Denies double vision <Angelica Cabrera 10/29/19 08:53> - ENT Denies nasal congestion, Denies sore throat <Angelica Cabrera 10/29/19 08:53> - *Cardiovascular Reports chest pain (mild), Reports shortness of breath, Denies rapid, pounding, or irregular heartbeat <Angelica Cabrera - 10/29/19 08:53> - *Respiratory Reports shortness of breath (after syncopal episode yesterday), Denies cough <Angelica Cabrera - 10/29/19 08:53> - *Gastrointestinal Denies abdominal pain, Denies loose stools, Denies vin
--- NOTE | 2019-10-29 09:39 | CT_ITS ---
PROCEDURE: CT ABDOMEN PELVIS WO CON CLINICAL INDICATION: LUQ pain Left upper quadrant pain with nausea COMPARISON: No exams were available for comparison TECHNIQUE: Axial images obtained with sagittal and coronal reformats. All CT scans at the facility use one or more dose reduction, viz: automated exposure control, ma/kV adjustment per patient size (including targeted exams where dose is matched to indication, i.e. head), or iterative reconstruction technique. FINDINGS: LOWER THORAX: Cardiac pacemaker device is present. A small subpleural nodules present lower lobe posterior laterally at 6 x 3 mm. ABDOMEN & PELVIS: Postsurgical changes of the gastroesophageal junction with multiple surgical clips. The liver has an unremarkable appearance. There is a small calcification along the anterior aspect of the gallbladder and an additional calcification along the medial aspect of the gallbladder. These do not appear to be within the lumen of the gallbladder. The spleen has an unremarkable appearance. Unremarkable appearing pancreas and adrenal glands. There is a 4 mm stone along the lower pole of the left kidney. There is some cortical scarring along the superior pole of the left kidney. No ureteral calculi or hydronephrosis. The bowel gas pattern is nonspecific with a few scattered air-fluid levels within the small bowel which are nondistended. There is an anastomosis in the small bowel in the left lower quadrant. There is a mild amount of retained colonic feces. No evidence of appendicitis. There is diverticulosis of the descending colon and sigmoid colon. No evidence of diverticulitis. Post hysterectomy changes There is mild dextroscoliosis with degenerative changes of the lumbar spine IMPRESSION: 1. Nonobstructing left nephrolithiasis. 2. Postsurgical changes. There are some scattered air-fluid levels within the small bowel which are nonspecific but could be seen with enteritis. 3. Moderate amount of retained colonic feces with colonic diverticulosis without diverticulitis. 4. Other nonacute findings as detailed above Dictated by: Sheldon Garcia MD 10/29/2019 11:13 Sheldon Garcia MD in [place] 10/29/2019 11:13
--- NOTE | 2019-10-29 11:21 | HMH.PHAVTE ---
[facility] Pharmacy VTE Monitoring - Patient Demographics Admission date: 10/29/19 Report Date: 10/29/19 Time: 11:21 Allergies/Adverse Reactions: Patient Allergies codeine [CODEINE] Allergy (Intermediate, Verified 09/30/19 13:37) I-RASH hydromorphone [From DILAUDID] Allergy (Unknown, Verified 09/30/19 13:37) I-HIVES Height: 1.6 m Weight: 60.498 kg Patient Problems: Current Active Problems Syncope and collapse (Acute) Status cardiac pacemaker (Chronic) History of seizures (Chronic) Asthma (Chronic) Type 2 diabetes mellitus (Chronic) History of [place] (myocardial infarction) (Chronic) Hyperlipidemia (Chronic) - VTE Risk Labs: VTE Related Lab Results Hgb 12.8 g/dL (12.2-16.2) 10/28/19 16:37 Hct 38.2 % (37.0-47.0) 10/28/19 16:37 Plt Count 189 K/mm3 (142-424) 10/28/19 16:37 PT 36.8 seconds (9.4-11.8) H 10/28/19 16:37 INR 3.90 (0.9-1.1) H 10/28/19 16:37 BUN 12 mg/dl (7-17) 10/28/19 16:37 Creatinine 0.70 mg/dl (0.52-1.04) 10/28/19 16:37 Estimated Creat Clear 48 mL/min (50-200) 10/28/19 16:37 Was VTE Risk Assessment Performed: Yes VTE Score: 5 VTE Risk Level: Low Risk - Prophylaxis Types of VTE Prophylaxis: TEDS Knee High (IRASEMA HOSE ORDERED), Pharmacological (INR 3.90 ON ADMISSION.) Location of Applied Device: Bilateral Lower Extremeties, Refused
--- NOTE | 2019-10-29 15:49 | PC.NURSE ---
PT HAS BEEN AO*4 T/O SHIFT, NO C/O OF SYNCOPE WITH AMBULATION IN HALLWAY OR TO RESTROOM, PT TOLERATES RA WITH NO C/O SOA. MEDS HAVE BEEN VERIFIED WITH PHARMACY. PT HAS NO C/O ANY CHEST PAIN THIS SHIFT, VSS, FAMILY AT BEDSIDE WILL CONTINUE TO MONITOR.
[2019-10-29 16:52] LABS: POC Glucose,Bedside 140 (70-110)
[2019-10-29 16:52] LABS: POC Glucose,Bedside 61 (70-110)
[2019-10-29 16:56] LABS: POC Glucose,Bedside 82 (70-110)
[2019-10-29 22:36] LABS: POC Glucose,Bedside 102 (70-110)
[2019-10-30] VITALS: BP 104/61; PULSE 70; PULSE 71; RESP 16; TEMP 36.8; O2SAT 94
[2019-10-30 03:57] VITALS: BP 98/56; PULSE 71; RESP 17; TEMP 36.7; O2SAT 97
[2019-10-30 04:00] VITALS: PULSE 70
--- NOTE | 2019-10-30 04:59 | PC.NURSE ---
Pt has rested well through the night. Pt has tolerated RA appropriately. Lung sounds are clear t/o. FSBS @ 2100 was 102. Pt's appetite has been satisfactory. Pt has had no episodes of syncope this shift. All safety measures in place. No other acute changes. Will continue to monitor.
[2019-10-30 05:15] VITALS: BMI 23.6
[2019-10-30 06:31] LABS: POC Glucose,Bedside 74 (70-110)
[2019-10-30 07:39] VITALS: BP 122/62; PULSE 76; RESP 20; TEMP 36.9; O2SAT 99
[2019-10-30 08:00] VITALS: PULSE 70
[2019-10-30 08:14] LABS: INR 1.54 (0.9-1.1); Prothrombin Time 15.5 seconds (9.4-11.8)
--- NOTE | 2019-10-30 08:57 | HMH.ACPN2 ---
Internal Medicine - PN: Subj *Date: 10/30/19 *Time: 09:02 Interval history: No new complaints this morning. She has had no syncopal or near syncopal episodes since admission. She ambulated in the hallway yesterday and did well. She has been independent in the room. She had one sugar that was 61 yesterday but she was asymptomatic. Exam Vital signs and Labs for Last 24 Hours: Temp Pulse Resp BP Pulse Ox 98.4 F 76 20 122/62 99 10/30/19 07:39 10/30/19 07:39 10/30/19 07:39 10/30/19 07:39 10/30/19 07:39 Laboratory Results - last 24 hr 10/29/19 11:09: POC Glucose 61 L 10/29/19 12:30: POC Glucose 140 H 10/29/19 16:48: POC Glucose 82 10/29/19 22:29: POC Glucose 102 10/30/19 06:20: POC Glucose 74 10/30/19 07:03: PT 15.5 H, INR 1.54 H I & O for Last 24 hours: Intake & Output 10/27/19 10/28/19 10/29/19 10/30/19 11:59 11:59 11:59 11:59 Intake Total 1531 / 1531 2552 / 2552 Output Total 600 / 600 Balance 1531 / 1531 1951 / 1951 Weight 133 lb 6 oz 133 lb 5.898 oz Narrative: She is sitting up in a chair. She is alert and oriented. Color is normal. Lungs are clear to auscultation. Heart is regular with no ectopy. Abdomen is soft and nondistended with no tenderness. Extremities no edema. Assessment and Plan (1) Syncope and collapse Current visit: Yes Status: Acute Category: Medical Code(s): R55 - Syncope and collapse (2) Status cardiac pacemaker Current visit: Yes Status: Chronic Category: Surgical Code(s): Z95.0 - Presence of cardiac pacemaker (3) History of seizures Current visit: Yes Status: Chronic Category: Medical Code(s): Z87.898 - Personal history of other specified conditions (4) Asthma Current visit: Yes Status: Chronic Category: Medical Code(s): J45.909 - Unspecified asthma, uncomplicated (5) Type 2 diabetes mellitus Current visit: Yes Status: Chronic Category: Medical Code(s): E11.9 - Type 2 diabetes mellitus without complications (6) History of [place] (myocardial infarction) Current visit: Yes Status: Chronic Category: Medical Code(s): I25.2 - Old myocardial infarction (7) Hyperlipidemia Current visit: Yes Status: Chronic Category: Medical Code(s): E78.5 - Hyperlipidemia, unspecified - Assessment and plan all Dx Assessment and Plan for all problems:: Etiology of her syncope remains unclear. Cardiac work-up and monitoring is negative. Her blood sugars are still trending in the low normal range and she is encouraged to eat frequent small meals. She is felt to be stable for discharge today. Recommend she follow-up with Dr. Zackary Beltran, her neurologist for further neurological evaluation. She will follow-up with me in 1 week.
--- NOTE | 2019-10-31 21:35 | HMH.DCSUM ---
General - General Admission date:: 10/28/19 <Charles Barrett - 11/07/19 08:18> 10/28/19 <Angelica Cabrera - 10/31/19 21:41> Discharge date: 10/30/19 <Angelica Cabrera - 10/31/19 21:41> HPI HPI: Ms. Flores is a 69-year-old female with a history of asthma, type 2 diabetes, [place], hyperlipidemia, CHF, pacemaker, A. fib, seizures, and GERD who has had numerous syncopal episodes. On Thursday, she just had an episode where her legs felt weak and she felt like she could pass out, but did not. On Thursday, she had a syncopal episode and was taken to the emergency room. Her work-up was negative and her pacemaker was interrogated. A CT of her head was negative. Cardiology was consulted. Her image consultant is Dr. Russell and she spoke with him on Thursday. He felt her symptoms were likely more related to her blood sugar. She had a follow-up with Dr. Barrett yesterday in the office and he also felt the etiology was likely hypoglycemia in light of a negative cardiac work-up. After her appointment, she went home and was in her corn patch when she had another syncopal episode. She states her found her on the ground and she was diaphoretic. He brought her to the emergency room where she was subsequently admitted for further work-up. She has had some degree of confusion after these episodes. She has a history of seizures and is on Keppra, but no seizure activity was noted. She is followed by Dr. Beltran with neurology. <Angelica Cabrera - 10/31/19 21:41> Hospital Course Hospital Course: The patient's chest x-ray showed density in the right middle lobe which could be due to atelectasis versus infiltrate. She had no symptoms of pneumonia. She had a head CT showing nothing acute. She was admitted for monitoring of further syncopal episodes and telemetry. She did have one episode where she felt weak and dizzy when getting up out of her bed, but she never had any more syncopal episodes. Her did state that on arrival to the ER her blood sugar was 63. She was given peanut butter and orange juice and it went up to 195. She had an episode of near syncope while in the ER and a repeat EKG was normal as were orthostatic blood pressures. Her blood sugar at that time was 101, which was a significant decline from 195. Since her bariatric surgery, her blood sugars had been diet controlled and all of her diabetes medications were discontinued. She did not appear to be post ictal as if having seizure activity, although her noted that her mental response seems slow after the episode. She did complain of some intermittent left upper quadrant abdominal pain that she had had for [address] was ordered of her abdomen. She had had a complete cardiac work-up and everything had come back negative. Dr. Barrett was suspicious of hypoglycemic episodes. 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 The patient's abdominal and pelvic CT showed nonobstructing left nephrolithiasis, a moderate amount of retained colonic feces with diverticulosis, and nothing else acute. The patient felt well throughout the rest of her admission. She was able to ambulate in the hallway and do well. She did have one sugar that was 61, but she was asymptomatic. The etiology of her syncope remained unclear. She was encouraged to eat frequent small meals due to the low trending blood sugars. She was stable to be discharged and will follow up with her neurologist Dr. Zackary Beltran for further neurologic evaluation. <Angelica Cabrera - 10/31/19 21:41> Objective Vital signs: Temp Pulse Resp BP Pulse Ox 98.4 F 70 20 122/62 99 10/30/19 07:39 10/30/19 08:00 10/30/19 07:39 10/30/19 07:39 10/30/19 07:39 <Charles Barrett - 11/07/19 08:18> Temp Pulse Resp BP Pulse Ox 98.4 F 70 20 122/62 99 10/30/19 07:39 10/30/19 08:00 10/30/19 07:39 10/30/19 07:39 10/30/19 07:39
[2019-11-01 04:14] LABS: Levetiracetam (Keppra) 13.3 ug/mL (10.0-40.0)
== END 2019-10-30 10:52 | disposition home or self-care (01) ==
LOC: ER 18:43 → 2ND 20:12
PROVIDERS: Admitting Provider Family Medicine; Emergency Provider Emergency Medicine; PCP Family Medicine; Visit Provider Family Medicine
DX: R55 Syncope and collapse (principal); I48.91 Unspecified atrial fibrillation; Z79.01 Long term (current) use of anticoagulants; J45.909 Unspecified asthma, uncomplicated; I25.2 Old myocardial infarction; I25.10 Atherosclerotic heart disease of native coronary artery without angina pectoris; E11.9 Type 2 diabetes mellitus without complications; Z95.0 Presence of cardiac pacemaker; I50.9 Heart failure, unspecified; G40.909 Epilepsy, unspecified, not intractable, without status epilepticus
CPT/HCPCS: 36415; 70450; 71045; 74176; 80048; 80076; 80177; 82962; 83605; 84484; 85025; 85610; 86328; 87040; 93005; 96365; 99284; G0378; J1642

== ENCOUNTER → 2019-10-31 09:15 | Outpatient (POV) | payer MEDICARE, BC, SELFPAY ==
[2019-10-31 09:57] VITALS: BP 106/62; PULSE 69; RESP 18; TEMP 36.7; BMI 25.4
--- NOTE | 2019-10-31 11:09 | HMH.PMCON ---
Assessment and Plan (1) Facet arthropathy Current visit: Yes Status: Chronic Category: Medical Code(s): M47.819 - Spondylosis without myelopathy or radiculopathy, site unspecified (2) Lumbar spondylosis Current visit: Yes Status: Chronic Category: Medical Code(s): M47.816 - Spondylosis without myelopathy or radiculopathy, lumbar region (3) Degenerative disc disease Current visit: Yes Status: Chronic Qualifiers: Spinal region: lumbar Qualified Code(s): M51.36 - Other intervertebral disc degeneration, lumbar region Category: Medical - Assessment and plan all Dx Assessment and Plan for all problems:: We will schedule the patient for L3-L4 L4-L5 L5-S1 bilateral medial branch blocks. We will seek for permission for her to come off of her Coumadin prior. Patient potentially could be a neurotomy candidate. I will follow-up with her after her injection reassess her symptoms at that time. We will also order a CT scan of her low back and neck for baseline. Dr. Blake has reviewed this note and agrees with this plan of care. This note was dictated using voice recognition software and may contain errors or omissions HPI - Data of Consult Consult date: 10/31/19 Requesting Physician: Nneka Waters APRN Primary Care Provider: Charles Barrett MD - Consult Narrative Reason for consult: Back pain, neck pain, hip pain History of present illness: Ms. Flores is a 69 year old female who presents today for consultation in regards to her neck back and hip pain. Patient goes by [employer]. Patient has focal low back pain. It is worse when she does any kind of twisting or bending activity. Patient was seen by Dr. Warner and received facet joint injections and a neurotomy in which she got extremely good relief from. She does have positive lumbar facet loading. Patient rates her pain a 5 out of 10. Patient does not have any recent imaging due to pacemaker placement she is unable to get an MRI. Patient is on anticoagulation therapy. Patient also has neck pain. She has had this for quite some time. CC: Nneka Waters APRN [facility] History I have reviewed the patient's past medical history: Yes Medical History: Reports:: Asthma, Atrial Fibrillation, Congestive Heart Failure, Diabetes Mellitus Type 2, Gastroesophageal Reflux Disease(GERD), Hyperlipidemia, Internal Pacemaker, Kidney Stones, Myocardial Infarction, Seizures Denies:: Cancer, Diabetes Mellitus Type 1, MRSA *Have you ever received a pneumonia vaccine?: Yes *Have you received a flu vaccine this season?: Yes Other Medical History: Reports: Arthritis, Cataracts Laterality Cases: Right: Arthroscopy Shoulder, Bilateral: Arthroscopy Knee, Tonsillectomy Other Surgeries: Yes: Colonoscopy, Hysterectomy-Total, Pacemaker, Other (Rt shoulder RCR, Gastric bypass, kidney stone removal, breast biopsies) Amputation: No Fractures: No - *Social History Smoking Status: Never smoker Alcohol Intake: never Alcohol Intake Frequency:: 0-2 drinks per day *Occupational Status:: retired Housing: house Household Members: spouse *Travel in the last 8 weeks: None Family Hx:: Unable to obtain Review of Systems - Review of Systems ROS General: no recent weight change, no fever, no sleep disturbances Respiratory: no cough, no shortness of air, no recurring pulmonary infections Cardiovascular/Peripheral Vascular: No chest pain, No palpitations, no edema, no shortness of breath. Gastrointestinal: no new onset incontinence, normal bowel movements reported Genitourinary: no new onset incontinence Musculoskeletal: Back pain, neck pain Psychiatric: normal mood/ affect Neurological: [denies new onset weakness in extremities], [denies new onset balance issues] Meds Home Medications Medication Instructions Recorded Confirmed Type Atorvastatin Calcium [Lipitor 40mg 40 mg PO HS 10/28/19 10/28/19 History Tab] Cholecalciferol (Vitamin D3) 125
== END ==
PROVIDERS: PCP Family Medicine; Visit Provider Clinical Nurse Specialist Family Health
DX: M47.816 Spondylosis without myelopathy or radiculopathy, lumbar region (principal); M51.36 Other intervertebral disc degeneration, lumbar region
CPT/HCPCS: 99202

== ENCOUNTER 2019-11-04 10:48 | Day surgery (SDC) | payer MEDICARE, BC, SELFPAY ==
[2019-11-04 11:09] VITALS: BMI 25.4
[2019-11-04 11:10] VITALS: BP 119/66; PULSE 70; RESP 18; TEMP 36.4; O2SAT 97; BMI 25.4
[2019-11-04 11:44] LABS: INR 1.05 (0.9-1.1); Prothrombin Time 10.8 seconds (9.4-11.8)
[2019-11-04 12:02] VITALS: BP 114/53; PULSE 70; RESP 18; O2SAT 98
[2019-11-04 12:03] VITALS: BP 115/58; PULSE 72; RESP 18; O2SAT 98
--- NOTE | 2019-11-04 12:09 | P.PCN_ITS ---
- Procedure Date: 11/04/19 Time: 12:09 Anesthesiologist:: Lamberto Blake MD Complications:: None Pre-procedure Diagnosis:: Degenerative disc disease of the lumbar spine with lumbar spondylosis and facet arthropathy of lumbar spine Post-procedure Diagnosis:: Same Indications for Procedure:: Patient is a pleasant 69-year-old white female who we are treating for neck pain low back pain. She does have increasing low back pain worse with extension and twisting. She is received facet joints and RF in the past to her lumbar medial branches and done very well with this. We will plan on lumbar medial branch block/facet joint injections today of L3-L4, L4-5 and L5-S1 bilaterally. Procedure Details:: Lumbar medial branch block Informed consent was obtained and the risks and benefits of the procedure was explained to the patient. The back was prepped using ChloraPrep. The skin and subcutaneous tissues were anesthetized using lidocaine. I placed 22-gauge s gladis needles into the facet joint/medial branches of L3-L4, L4-L5 and L5-S1 bilaterally. Needle placement was confirmed with dye. After this we injected 3 mL bupivacaine 0.25% and Depo-Medrol 13 mg into each facet joint/medial branch of L3-L4, L5 and L5-S1 bilaterally. We used a total of 80 mg Depo-Medrol for all 3 levels bilaterally. The patient tolerated the procedure well with no complications. Plan and Disposition:: We will follow-up with her in 2 weeks. Will reevaluate symptoms at that time. If successful we will plan on RF ablation to the facet joint/medial branches of L3-L4, L4-5 and L5-S1 bilaterally.
[2019-11-04 12:16] VITALS: BP 110/53; PULSE 69; RESP 20; O2SAT 97
--- NOTE | 2019-11-04 12:22 | CT_ITS ---
PROCEDURE: CT CERVICAL SPINE WO CON CLINICAL INDICATION: neck pain RT NECK PAIN COMPARISON: No exams were available for comparison TECHNIQUE: Axial images obtained with sagittal and coronal reformats. All CT scans at the facility use one or more dose reduction, viz: automated exposure control, ma/kV adjustment per patient size (including targeted exams where dose is matched to indication, i.e. head), or iterative reconstruction technique. Axial spiral CT scanning performed of the cervical spine beginning at the base of the skull and continuing to the upper T-spine. 3-D multiplanar reconstruction with 3-D manipulation of volumetric data set in image rendering was completed by the radiologist and/or technologist with the supervision of the radiologist on independent workstation. FINDINGS: There is normal alignment. No acute fracture or dislocation is evident. C2-C3: Unremarkable. C3-C4: Mild degenerative disc disease. There is mild uncovertebral and facet hypertrophy with bilateral foraminal narrowing. C4-C5: Degenerate disc disease with uncovertebral and facet hypertrophy with bilateral foraminal narrowing greater on the left with prominent facet hypertrophic changes on the left. C5-C6: Degenerative disc disease with endplate hypertrophic change and small left paracentral disc osteophyte complex with left lateral recess narrowing and bilateral foraminal narrowing. C6-C7: Degenerative disc disease with endplate hypertrophic change and a small broad-based central and left paracentral disc osteophyte complex. C7-T1: Unremarkable. The lung apices are clear. IMPRESSION: Multilevel cervical spondylosis as detailed above. Please see above for detailed description at each level. No acute fracture or bony canal stenosis. Dictated by: Sheldon Garcia MD 11/05/2019 14:06 Sheldon Garcia MD in [place] 11/05/2019 14:06
--- NOTE | 2019-11-04 12:22 | CT_ITS ---
PROCEDURE: CT LUMBAR SPINE WO CON CLINICAL HISTORY: back pain Rt sciatic pain h/o ablation l-spine COMPARISON: CT CT ABDOMEN PELVIS WO CON from 10/29/2019 CR XR PAIN MGT INJ from 11/04/2019 TECHNIQUE: Axial images obtained with sagittal and coronal reformats. All CT scans at the facility use one or more dose reduction, viz: automated exposure control, ma/kV adjustment per patient size (including targeted exams where dose is matched to indication, i.e. head), or iterative reconstruction technique. FINDINGS: There is normal alignment. Vacuum disc is noted at L1-L2 L2-L3 and L3-L4. L1-L2: Degenerative disc disease with bulging disc and endplate hypertrophic change. L2-L3: Degenerative disc disease with endplate hypertrophic change. There is 3-4 mm retrolisthesis of L2 on L3. There are prominent left lateral osteophytes at this level. There is mild lumbar scoliosis convex right with the apex at L2-L3. There is a small air density in the left foraminal region anteriorly at L3 and may be discogenic in nature. L3-L4: There is 4 mm retrolisthesis of L3 with bulging disc which is eccentric toward the left. Endplate sclerosis is noted on the left this region and there is vacuum disc phenomenon. There is moderate left sided foraminal narrowing. L4-5: Facet and ligamentum hypertrophy with bulging disc L5-S1: 3 mm anterolisthesis of L5 with bulging disc along with facet and ligamentum hypertrophy/osteosclerosis. The anterolisthesis is slightly greater along the right aspect of L5. There is moderate to severe right-sided foraminal narrowing There is an unusual area of hyperdensity along the posterior aspect of the right S1 neural foramen containing a central area of air density. This region measures 9 mm in AP dimension and extends cephalad caudad for length of 12 mm. This abuts the posterior aspect of the right S1 nerve root. This appears to extend from the facet at S1-S2. This could be due to recent facet injection. The incidental note is made postsurgical changes of the stomach and a 3 mm nonobstructing stone in the lower pole of the left kidney. There is hyperdensity of the right renal collecting system. It appears from the PACS system that the patient had a facet injection earlier the same day which may account for this contrast. There is some heterogeneous density along the lumbar region within the soft tissues posteriorly with some intermixed gas density at L3-L4 L4-5 likely due to recent facet injection. IMPRESSION: 1. Multilevel lumbar spondylosis with degenerative disc disease along with facet ligamentum hypertrophy and bulging disc. Please see above for detailed description at each level. 2. Unusual hyperdensity posterior to the right S1 nerve root with central air density possibly related to recent facet injection. Follow-up may confirm 3. Status post facet injection with postsurgical changes at L3-L4 L4-5 4. Nonobstructing left nephrolithiasis Dictated by: Sheldon Garcia MD 11/06/2019 09:12 Sheldon Garcia MD in [facility] 11/06/2019 09:12
== END 2019-11-04 12:17 | disposition home or self-care (01) ==
PROVIDERS: PCP Family Medicine; Visit Provider Anesthesiology
DX: M51.36 Other intervertebral disc degeneration, lumbar region (principal); M12.88 Other specific arthropathies, not elsewhere classified, other specified site; M47.816 Spondylosis without myelopathy or radiculopathy, lumbar region; E78.5 Hyperlipidemia, unspecified; R56.9 Unspecified convulsions; I25.2 Old myocardial infarction; J45.909 Unspecified asthma, uncomplicated; Z95.0 Presence of cardiac pacemaker; Z79.01 Long term (current) use of anticoagulants; Z79.899 Other long term (current) drug therapy
CPT/HCPCS: 36415; 64493; 64494; 64495; 72125; 72131; 85610; J1030; Q9966

== ENCOUNTER → 2019-11-07 14:15 | Outpatient (CLI) | payer MEDICARE, BC, SELFPAY ==
[2019-11-09 14:20] LABS: Covid-19 Nasal PCR Sendout Lex Not Detected
== END ==
PROVIDERS: PCP Family Medicine; Visit Provider Family Medicine
DX: Z03.818 Encounter for observation for suspected exposure to other biological agents ruled out (principal)
CPT/HCPCS: U0004

== ENCOUNTER 2019-12-12 12:02 | Outpatient (CLI) | payer MEDICARE, BC, SELFPAY | END 2019-12-12 12:15 | disposition home or self-care (01) | LOC: INF 12:02 | PROVIDERS: Visit Provider Nurse Practitioner Family | DX: Z45.2 Encounter for adjustment and management of vascular access device (principal) | CPT/HCPCS: 96523; J1642 ==

== ENCOUNTER 2020-01-09 10:44 | Outpatient (CLI) | payer MEDICARE, BC, SELFPAY ==
[2020-01-09 10:50] VITALS: BMI 25.4
[2020-01-09 11:18] LABS: Basophils % 0.5 % (0.1-2.0); Eosinophils # 0.1 K/mm3 (0.0-0.4); Eosinophils % 1.5 % (0.1-12.0); Hematocrit 41.6 % (37.0-47.0); Hemoglobin 13.3 g/dL (12.2-16.2); Lymphocytes # 1.9 K/mm3 (0.7-4.5); Mean Corpuscular Hemoglobin 32.1 pg (27.0-31.2); Mean Corpuscular Volume 100.5 fl (81-99); Mean Platelet Volume 7.7 fl (7.4-10.4); Monocytes # 0.3 K/mm3 (0.1-1.0); Monocytes % 5.6 % (1.7-9.3); Neutrophils # 3.7 K/mm3 (1.8-7.8); Neutrophils % 61.3 % (37.0-80.0); Platelet Count 210 K/mm3 (142-424); Red Blood Count 4.14 M/mm3 (4.20-5.40); Red Cell Distribution Width 13.5 % (11.5-17.5)
[2020-01-12 11:24] LABS: Immunoglobulin E, Total 50 IU/mL (6-495)
== END 2020-01-09 11:17 | disposition home or self-care (01) ==
LOC: INF 10:44
PROVIDERS: Visit Provider Nurse Practitioner Family
DX: Z45.2 Encounter for adjustment and management of vascular access device (principal); J45.909 Unspecified asthma, uncomplicated
CPT/HCPCS: 82785; 85025; J1642

== ENCOUNTER → 2020-02-09 11:51 | Outpatient (CLI) | payer MEDICARE, BC, SELFPAY ==
[2020-02-09 14:21] LABS: Basophils # 0.1 K/mm3 (0-0.2); Basophils % 0.8 % (0.1-2.0); Eosinophils # 0.1 K/mm3 (0.0-0.4); Hematocrit 49.5 % (37.0-47.0); Hemoglobin 15.4 g/dL (12.2-16.2); Lymphocytes # 1.6 K/mm3 (0.7-4.5); Lymphocytes % 23.8 % (10-50); Mean Corpuscular Hemoglobin 32.2 pg (27.0-31.2); Mean Corpuscular Volume 103.6 fl (81-99); Mean Platelet Volume 8.2 fl (7.4-10.4); Monocytes # 0.3 K/mm3 (0.1-1.0); Monocytes % 4.3 % (1.7-9.3); Neutrophils # 4.6 K/mm3 (1.8-7.8); Neutrophils % 70.1 % (37.0-80.0); Platelet Count 271 K/mm3 (142-424); Red Blood Count 4.78 M/mm3 (4.20-5.40); Red Cell Distribution Width 13.6 % (11.5-17.5); White Blood Count 6.5 K/mm3 (4.8-10.8)
[2020-02-10 13:38] LABS: Covid-19 Nasal PCR Sendout Lex NOT DETECTED
== END ==
PROVIDERS: PCP Physician Assistant; Visit Provider Physician Assistant
DX: Z03.818 Encounter for observation for suspected exposure to other biological agents ruled out (principal)
CPT/HCPCS: 36415; 85025; U0004

== ENCOUNTER 2020-02-13 10:08 | Outpatient (CLI) | payer MEDICARE, BC, SELFPAY | END 2020-02-13 10:20 | disposition home or self-care (01) | LOC: INF 10:08 | PROVIDERS: PCP Physician Assistant; Visit Provider Family Medicine | DX: Z45.2 Encounter for adjustment and management of vascular access device (principal) | CPT/HCPCS: 96523; J1642 ==

== ENCOUNTER 2020-07-23 10:22 | Outpatient (CLI) | payer MEDICARE, BC, SELFPAY | END 2020-07-23 10:28 | disposition home or self-care (01) | LOC: INF 10:22 | PROVIDERS: Visit Provider Family Medicine | DX: Z45.2 Encounter for adjustment and management of vascular access device (principal) | CPT/HCPCS: 96523; J1642 ==

== ENCOUNTER 2020-09-07 10:39 | Outpatient (CLI) | payer MEDICARE, BC, SELFPAY | END 2020-09-07 10:42 | disposition home or self-care (01) | LOC: INF 10:39 | PROVIDERS: PCP Physician Assistant; Visit Provider Family Medicine | DX: Z45.2 Encounter for adjustment and management of vascular access device (principal) | CPT/HCPCS: 96523; J1642 ==

== ENCOUNTER → 2020-09-18 12:58 | Outpatient (CLI) | payer MEDICARE, BC, SELFPAY ==
--- NOTE | 2020-09-18 13:03 | CA_ITS ---
APPROVED REPORT Bilateral Lower Extremity Venous Study for Applied Anthropologist: CN Risk Factors Pain below the left knee x 1 week s/p fall Medications Coumadin Vein Imaging CFV (L): compressive, spontaneous, phasic, augmentation SFJ (L): compressive, spontaneous, phasic, augmentation FEM (L): compressive, spontaneous, phasic, augmentation POP (L): compressive, spontaneous, phasic, augmentation DFV (L): compressive, spontaneous, phasic, augmentation PTV (L): compressive, spontaneous, phasic, augmentation GSV (L): compressive, spontaneous, phasic, augmentation SSV (L): compressive, spontaneous, phasic, augmentationcompressive, spontaneous, phasic, augmentation Peroneals (L):compressive, spontaneous, phasic, augmentation GAS (L): compressive, spontaneous, phasic, augmentation Findings Color flow duplex demonstrates no evidence of DVT of the following left lower extremity Veins:Common Femoral Vein, Femoral Vein, Popliteal Vein, Posterior Tibial Veins, Peroneal Veins, Deep Femoral Vein. Negative for DVT. Conclusion Negative for DVT. Electronically signed by : Sheldon Garcia MD 09/18/2020 16:10:18
--- NOTE | 2020-09-18 13:08 | XR_ITS ---
PROCEDURE: XR KNEE LT 3V CLINICAL INDICATION: LT LATERAL KNEE PAIN COMPARISON: CR XR KNEE RT 4V from 09/26/2019 FINDINGS: No fracture or dislocation. No lytic or blastic change. There is normal mineralization. There are mild osteoarthritic changes involving all 3 compartments worse at medial compartment. There is generalized osteopenia. No acute fracture or dislocation apparent. Other findings:None. IMPRESSION: Mild osteoarthritis Dictated by: Sheldon Garcia MD 09/18/2020 13:47 Sheldon Garcia MD in [facility] 09/18/2020 13:47
--- NOTE | 2020-09-18 13:08 | XR_ITS ---
PROCEDURE: XR KNEE RT 3V CLINICAL INDICATION: RT ANTERIOR KNEE PAIN COMPARISON: No exams were available for comparison FINDINGS: Mild osteoarthritic changes are present involving all 3 compartments. There is mild lateral translation of the tibia approximately 6 mm. There may be a small suprapatellar effusion. The joint spaces are well-preserved. No significant degenerative/arthritic changes. No erosive changes evident. Other findings:None. IMPRESSION: Mild osteoarthritis overall not significantly changed Dictated by: Sheldon Garcia MD 09/18/2020 13:48 Sheldon Garcia MD in [facility] 09/18/2020 13:48
== END ==
PROVIDERS: PCP Family Medicine; Visit Provider Nurse Practitioner
DX: M79.605 Pain in left leg (principal)
CPT/HCPCS: 73562; 93971

== ENCOUNTER → 2020-09-25 09:04 | Outpatient (CLI) | payer MEDICARE, BC, SELFPAY ==
--- NOTE | 2020-09-25 09:07 | XR_ITS ---
PROCEDURE: XR DEXA AXIAL SKELETON CLINICAL HISTORY: POSTMENOPAUSAL COMPARISON: No exams were available for comparison FINDINGS: The right hip BMD is 0.677 grams/square centimeter with a T-score of -2.2. The left hip BMD is 0.696 grams/centimeter square with a T-score of -2.0. The lumbar spine BMD is 1.070 grams/cm square with a T-score of . 0.2 IMPRESSION: Osteopenia of the bilateral hip joints, associated with moderately increased fracture risk. Based on these results a follow-up exam is recommended in year. Dictated by: Sara Chicas 09/25/2020 16:00 Sara Chicas in [facility] 09/25/2020 16:00
== END ==
PROVIDERS: PCP Family Medicine; Visit Provider Nurse Practitioner
DX: Z78.0 Asymptomatic menopausal state (principal)
CPT/HCPCS: 77080

== ENCOUNTER 2020-10-12 10:20 | Outpatient (CLI) | payer MEDICARE, BC, SELFPAY | END 2020-10-12 10:30 | disposition home or self-care (01) | LOC: INF 10:25 | PROVIDERS: Visit Provider Family Medicine | DX: Z45.2 Encounter for adjustment and management of vascular access device (principal) | CPT/HCPCS: 96523; J1642 ==

== ENCOUNTER 2020-10-15 20:50 | Observation (INO) | payer MEDICARE, BC, SELFPAY ==
--- NOTE | 2020-10-15 20:44 | ECG_ITS ---
APPROVED REPORT Exam: Resting ECG HR:70 bpm ECG Measurements Heart Rate 70 AXES WA 80 P 63 QRSd 186 QRS 259 QT 490 T 86 QTc 529 Conclusion AV sequential or dual chamber electronic pacemaker Electronically signed by : Yared Murguia MD 10/16/2020 21:04:12
[2020-10-15 20:54] VITALS: BP 114/60; PULSE 70; RESP 14; TEMP 36.4; O2SAT 96; BMI 26.9
--- NOTE | 2020-10-15 21:07 | PC.NURSE ---
blood glucose 123 upon arrival
--- NOTE | 2020-10-15 21:17 | XR_ITS ---
PROCEDURE INFORMATION: Exam: XR Chest Exam date and time: 10/15/2020 9:17 PM Age: 70 years old Clinical indication: Prior surgery; Surgery type: Pacemaker; Patient HX: Loc, confusion TECHNIQUE: Imaging protocol: XR of the chest. Views: 1 view. COMPARISON: CR XR CHEST PORTABLE 10/28/2019 4:47 PM FINDINGS: Lungs: A dual lead left subclavian pacemaker device is present, and its leads are in appropriate position. A right subclavian central venous catheter is stable, distal tip at the atrial caval junction. The lung volumes are improved. No focal areas of consolidation. Pleural spaces: No pleural effusions or appreciable adenopathy. Negative for pneumothorax. Heart/Mediastinum: Cardiac silhouette and pulmonary vasculature are within range of normal. Bones/joints: There is no evidence of acute fracture. Soft tissues: Surgical clips in the left axillary region are stable. Postoperative changes involve the right shoulder. IMPRESSION: 1. Improved lung volumes from prior exam. 2. Negative for an acute cardiopulmonary abnormality.
--- NOTE | 2020-10-15 21:17 | CT_ITS ---
PROCEDURE INFORMATION: Exam: CT Head Without Contrast Exam date and time: 10/15/2020 9:17 PM Age: 70 years old Clinical indication: Altered mental status/memory loss and dizziness; Confusion or disorientation; Additional info: Decreased loc TECHNIQUE: Imaging protocol: Computed tomography of the head without contrast. Radiation optimization: All CT scans at this facility use at least one of these dose optimization techniques: automated exposure control; mA and/or kV adjustment per patient size (includes targeted exams where dose is matched to clinical indication); or iterative reconstruction. COMPARISON: CT HEAD/BRAIN WO CON 10/28/2019 4:42 PM FINDINGS: Brain: There is mild diffuse cerebral atrophy consistent with this patient's age. There is mild heterogeneity and patchy areas of bilateral decreased attenuation of the white matter which is nonspecific but most consistent with chronic white matter ischemic change. The visualized basilar cisterns are patent. There is no evidence of mass, mass effect or midline shift. There is no evidence of acute hemorrhage within the brain parenchyma or the subarachnoid space. Cerebral ventricles: The ventricular system is normal in size and distribution. Paranasal sinuses: The visualized portions of the sinuses are clear. Mastoid air cells: The mastoid sinuses are normal. Orbital cavity: The orbits are normal. Vasculature: The intracranial vasculature demonstrates diffuse moderate atherosclerotic calcification. Bones/joints: There is no evidence of acute fracture. Soft tissues: No soft tissue swelling is identified. IMPRESSION: No acute intracranial abnormality. Stable head CT.
--- NOTE | 2020-10-15 21:22 | HMH.EDAMS ---
ED Disposition Clinical Impression: TIA (transient ischemic attack), Status cardiac pacemaker Altered mental status Qualifiers: Altered mental status type: delirium Qualified Code(s): R41.0 - Disorientation, unspecified Disposition: Admitted as Observation Condition on Discharge: Good Instructions: DI for Altered Mental Status Referrals: Charles Barrett MD [Primary Care Provider] - - Critical Care Critical Care Time: No Attestation: On 10/15/20, the high probability of a clinically significant, sudden or life threatening deterioration of the following system(s) required my full and direct attention, intervention and personal management. The time I documented below is in addition to time spent performing reported procedures but includes the following listed in this critical care notation. Medical Decision Making - Medical Records Medical records reviewed: Yes: I reviewed the patient's medical records. - Radhames Inquiry Pt receiving controlled substance: No Vital Signs: 10/15/20 20:54 10/15/20 21:30 Temperature 97.6 F Temperature Source Oral Pulse Rate 71 Pulse Rate [Right] 70 Respiratory Rate 14 13 Blood Pressure 111/62 Blood Pressure [Right Arm] 114/60 Blood Pressure Mean [Right Arm] 78 Blood Pressure Source [Right Arm] Automatic Cuff Blood Pressure Position [Right Arm] Supine 02 Sat by Pulse Oximetry 96 96 Oxygen Delivery Method Room Air - Lab Data Lab results reviewed: Yes: I reviewed the patient's lab results. Lab Results 10/15/20 21:23: ABG pH 7.35 10/15/20 21:38: SARS-CoV-2 (PCR) Not detected, Influenza A Untype (PCR) Not detected, Influenza Type B (PCR) Not detected 10/15/20 22:10: WBC 6.7, RBC 3.71 L, Hgb 12.0 L, Hct 36.0 L, MCV 97.0, MCH 32.3 H, MCHC 33.2, RDW 13.9, Plt Count 197, MPV 8.3, Neut % (Auto) 68.9, Lymph % (Auto) 22.8, [place] % (Auto) 6.6, Eos % (Auto) 1.2, Baso % (Auto) 0.5, Neut # (Auto) 4.6, Lymph # (Auto) 1.5, [place] # (Auto) 0.4, Eos # (Auto) 0.1, Baso # (Auto) 0.0, ESR 16 10/15/20 22:10: Sodium 139, Potassium 4.3, Chloride 109 H, Carbon Dioxide 27, Anion Gap 7.3, BUN 15, Creatinine 0.60, Estimated Creat Clear 50, Estimated GFR 98, Est GFR ( Amer) 119, Glucose 74, Calcium 7.9 L, Total Bilirubin 0.3, AST 27, ALT 14, Alkaline Phosphatase 106, Troponin I < 0.01, C-Reactive Protein 0.4, Total Protein 5.8 L, Albumin 3.4 L, Globulin 2.4, Albumin/Globulin Ratio 1.4, TSH 1.37, Thyroxine (T4) 8.0 10/15/20 22:10: Hemoglobin A1c 5.6 10/15/20 22:10: PT 24.0 H, INR 2.15 H 10/15/20 22:25: Urine Color Yellow, Urine Appearance Clear, Urine pH 5.5, Ur Specific [place] >= 1.030, Urine Protein Negative, Urine Glucose (UA) Trace, Urine Ketones Negative, Urine Blood Negative, Urine Nitrate Negative, Urine Bilirubin Negative, Urine Urobilinogen 0.2, Ur Leukocyte Esterase Negative, Urine WBC Occasional, Urine Bacteria Trace 10/15/20 22:25: Urine Opiates Screen Negative, Urine Methadone Screen Negative, Ur Barbituates Screen Negative, Ur Phencyclidine Scrn Negative, Ur Amphetamines Screen Negative, U Benzodiazepines Scrn Negative, Urine Cocaine Screen Negative, U Marijuana (THC) Screen Negative Result diagrams: 10/15/20 22:10 10/15/20 22:10 Orders (Tests/Meds): ED MEDICATIONS Generic Name Dose Route Start Last Admin Trade Name Maxine PRN Reason Stop Dose Admin Sodium Chloride 1,000 mls @ 999 mls/hr 10/15/20 21:30 10/15/20 22:46 Sod Chlor 0.9% 1000ml Bag IV 10/15/20 22:30 999 mls/hr .Q1H1M VANNESSA Administration ORDERS Category Date Time Status C-Reactive Protein Stat Lab 10/15/20 22:10 Results Comprehensive Metabolic Panel Stat Lab 10/15/20 22:10 Results Procalcitonin Stat Lab 10/15/20 22:10 Results T4 (Thyroxine) Stat Lab 10/15/20 22:10 Results TSH [Thyroid Stimulating Hormone] Stat Lab 08/09/21 22:10 Results Troponin I Q3H Lab 10/16/20 00:30 Ordered Troponin I Q3H Lab 10/16/20 03:30 Ordered Troponin I Stat Lab 10/15/20 22:10 Results - Radiol
[2020-10-15 21:30] VITALS: BP 111/62; PULSE 71; RESP 13; O2SAT 96
--- NOTE | 2020-10-15 21:39 | PC.NURSE ---
pt gone to radiology.
[2020-10-15 21:44] LABS: Coronavirus 19, PCR Not Detected (NotDetected); Influenza A, PCR Not Detected (NotDetected); Influenza B, PCR Not Detected (NotDetected)
--- NOTE | 2020-10-15 22:17 | PC.NURSE ---
pt back from rad
[2020-10-15 22:32] LABS: Microscopic, Urine URINE MICROSCOPIC (MICROSCOPIC)
[2020-10-15 22:33] LABS: Basophils % 0.5 % (0.1-2.0); Eosinophils # 0.1 K/mm3 (0.0-0.4); Eosinophils % 1.2 % (0.1-12.0); Lymphocytes # 1.5 K/mm3 (0.7-4.5); Lymphocytes % 22.8 % (10-50); Mean Corpuscular HGB Conc 33.2 g/dL (31.8-35.4); Mean Corpuscular Hemoglobin 32.3 pg (27.0-31.2); Mean Platelet Volume 8.3 fl (7.4-10.4); Monocytes # 0.4 K/mm3 (0.1-1.0); Monocytes % 6.6 % (1.7-9.3); Neutrophils # 4.6 K/mm3 (1.8-7.8); Neutrophils % 68.9 % (37.0-80.0); Platelet Count 197 K/mm3 (142-424); Red Blood Count 3.71 M/mm3 (4.20-5.40); Red Cell Distribution Width 13.9 % (11.5-17.5); White Blood Count 6.7 K/mm3 (4.8-10.8)
[2020-10-15 22:35] LABS: Appearance,Urine CLEAR (Clear); Bilirubin,Urine Negative (Negative); Blood, Urine Negative (Negative); Color,Urine YELLOW (Yellow); Glucose,Urine (UA) TRACE (Negative); Ketones,Urine Negative (Negative); Leukocyte Esterase,Urine Negative (Negative); Nitrate,Urine Negative (Negative); PH,Urine 5.5 (5.0-8.5); Protein,Urine Negative (Negative); Specific Gravity, Urine >= 1.030 (1.005-1.030); Urobilinogen,Urine 0.2 EU/dl (0.2)
[2020-10-15 22:36] LABS: Chloride 109 mmol/L (98-107); Potassium 4.3 mmoL/L (3.5-5.1); Sodium 139 mmol/L (136-145)
[2020-10-15 22:38] LABS: Blood Urea Nitrogen 15 mg/dl (7-17); Creatinine Clearance Estimated 50 mL/min (50-200); Estimated Glomerular Filt Rate 98 ml/min (>60); GFR (African American) 119 ML/MIN (>60)
[2020-10-15 22:39] LABS: Alanine Aminotransferase 14 U/L (12-78); Albumin Level 3.4 g/dl (3.5-5.0); Albumin/Globulin Ratio 1.4 (1.1-1.8); Alkaline Phosphatase 106 U/L (38-126); Anion Gap 7.3 mEq/L (5-15); Aspartate Amino Transferase 27 U/L (14-36); Bilirubin,Total 0.3 mg/dl (0.2-1.3); Calcium 7.9 mg/dl (8.4-10.2); Carbon Dioxide 27 mmol/L (22.0-30.0); Globulin 2.4 g/dL (1.3-3.2); Glucose 74 mg/dl (74-100); Total Protein,Serum 5.8 g/dl (6.3-8.2)
[2020-10-15 22:44] LABS: C-Reactive Protein 0.4 mg/L (0-4)
[2020-10-15 22:46] LABS: Amphetamine/Metha Screen,Urine Negative ng/ml (<1000)
[2020-10-15 22:47] LABS: Barbiturates Screen,Urine Negative ng/ml (<200); Benzodiazepines Screen,Urine Negative ng/ml (<200)
[2020-10-15 22:48] LABS: Cannabinoid Screen,Urine Negative ng/ml (<50)
[2020-10-15 22:49] LABS: Cocaine Screen,Urine Negative ng/ml (<300); Methadone Screen,Urine Negative ng/ml (<300)
[2020-10-15 22:50] LABS: Opiate Screen,Urine Negative ng/ml (<300)
[2020-10-15 22:51] LABS: Phencyclidine Screen,Urine Negative ng/ml (<25)
[2020-10-15 23:02] LABS: Troponin I < 0.01 ng/ml (0.00-0.034)
[2020-10-15 23:04] LABS: Erythrocyte Sedimentation Rate 16 mm/hr (0-30)
[2020-10-15 23:18] LABS: Hemoglobin A1C 5.6 % (4.0-6.0); Thyroid Stimulating Hormone 1.37 uIU/mL (0.465-4.68)
[2020-10-15 23:19] LABS: INR 2.15 (0.9-1.1)
[2020-10-15 23:36] LABS: Bacteria,Urine Trace /lpf; WBC,Urine Occasional #/hpf (0-3)
[2020-10-15 23:52] LABS: Procalcitonin < 0.030 ng/mL (0.0-2.0)
[2020-10-16] VITALS (9 sets, daily range): BP systolic 96–133; BP diastolic 41–72; PULSE 56–70; RESP 14–18; TEMP 36.3–36.8; O2SAT 95–99; BMI 28.5
[2020-10-16 01:13] LABS: Troponin I < 0.01 ng/ml (0.00-0.034)
--- NOTE | 2020-10-16 01:36 | PC.NURSE ---
PT ARRIVED TO FLOOR VIA W/C FROM ED W/STAFF AT 0134
[2020-10-16 04:49] LABS: Troponin I < 0.01 ng/ml (0.00-0.034)
[2020-10-16 06:02] LABS: Basophils % 0.6 % (0.1-2.0); Eosinophils # 0.1 K/mm3 (0.0-0.4); Eosinophils % 2.3 % (0.1-12.0); Hematocrit 34.7 % (37.0-47.0); Hemoglobin 11.2 g/dL (12.2-16.2); Lymphocytes # 1.8 K/mm3 (0.7-4.5); Mean Corpuscular HGB Conc 32.2 g/dL (31.8-35.4); Mean Corpuscular Hemoglobin 31.5 pg (27.0-31.2); Mean Corpuscular Volume 97.6 fl (81-99); Mean Platelet Volume 8.4 fl (7.4-10.4); Monocytes # 0.4 K/mm3 (0.1-1.0); Monocytes % 6.1 % (1.7-9.3); Neutrophils # 3.4 K/mm3 (1.8-7.8); Platelet Count 180 K/mm3 (142-424); Red Blood Count 3.55 M/mm3 (4.20-5.40); White Blood Count 5.6 K/mm3 (4.8-10.8)
[2020-10-16 06:05] LABS: Chloride 112 mmol/L (98-107); Potassium 4.3 mmoL/L (3.5-5.1); Sodium 139 mmol/L (136-145)
[2020-10-16 06:08] LABS: Anion Gap 4.3 mEq/L (5-15); Blood Urea Nitrogen 11 mg/dl (7-17); Carbon Dioxide 27 mmol/L (22.0-30.0); Creatinine Clearance Estimated 53 mL/min (50-200); Estimated Glomerular Filt Rate 98 ml/min (>60); GFR (African American) 119 ML/MIN (>60); Glucose 82 mg/dl (74-100)
[2020-10-16 06:09] LABS: Calcium 7.4 mg/dl (8.4-10.2); Magnesium 1.9 mg/dl (1.6-2.3)
[2020-10-16 07:09] LABS: ABG PCO2 45.8 mmhg (35.0-45.0); ABG PH 7.35 mmol/L (7.35-7.45); ABG PO2 69.3 mmhg (80-100)
[2020-10-16 07:10] LABS: ABG Base Excess -0.7 mmol/L (-2.4-2.3); ABG HCO3 24.9 mmhg (22.0-26.0); ABG Oxygen Saturation 93 % (90-100); ABG TCO2 26.3 mmhg (23-27)
[2020-10-16 07:11] LABS: Allen's Test ACCEPTABLE; Oxygen ROOM AIR %; Source R RADIAL
--- NOTE | 2020-10-16 07:28 | P.CONPHA_ITS ---
[facility] Pharmacy VTE Monitoring - Patient Demographics Admission date: 10/15/20 Report Date: 10/16/20 Time: 07:28 Allergies/Adverse Reactions: Patient Allergies codeine [CODEINE] Allergy (Intermediate, Verified 10/16/20 01:46) I-RASH hydromorphone [From DILAUDID] Allergy (Unknown, Verified 10/16/20 01:46) I-HIVES Height: 1.52 m Weight: 65.941 kg Patient Problems: Current Active Problems Status cardiac pacemaker (Chronic) Altered mental status (Acute) TIA (transient ischemic attack) (Acute) - VTE Risk Labs: VTE Related Lab Results Hgb 11.2 g/dL (12.2-16.2) L 10/16/20 05:40 Hct 34.7 % (37.0-47.0) L 10/16/20 05:40 Plt Count 180 K/mm3 (142-424) 10/16/20 05:40 PT 24.0 seconds (10.1-12.5) H 10/15/20 22:10 INR 2.15 (0.9-1.1) H 10/15/20 22:10 BUN 11 mg/dl (7-17) D 10/16/20 05:40 Creatinine 0.60 mg/dl (0.52-1.04) 10/16/20 05:40 Estimated Creat Clear 53 mL/min (50-200) 10/16/20 05:40 Was VTE Risk Assessment Performed: Yes VTE Score: 4 VTE Risk Level: Low Risk - Prophylaxis VTE Prophylaxis Ordered?: Yes Types of VTE Prophylaxis: TEDS Knee High, Pharmacological Location of Applied Device: Bilateral Lower Extremeties Pharmacologic Type: Warfarin
--- NOTE | 2020-10-16 08:00 | CA_ITS ---
APPROVED REPORT EXAM: Comprehensive 2D, Doppler, and color-flow Echocardiogram Tool Worker: Tamia Waldron CRT Ht: 5 ft 0 in Wt: 138lbs BSA: 1.59 BP: 111/62 mmHg Indications: Pacer, Afib, Asthma, CHF, GERD, old [place], Gastric bypass, alcohol use weekly, TIA 2D Dimensions Aortic Root 1.81 cm LA Volume 40.50 mL LA Volume Index 25.50 mL/m2 (M/F) 16-34 M-Mode Dimensions RVDd 2.29 cm (0.9-2.6) LA Diam 3.17 cm (1.9-4.0) LVDd 5.24 cm (3.5-5.7) Ao Diam 3.62 cm (2.0-3.7) LVDs 3.24 cm (3.5-5.7) IVSd 0.98 cm (0.6-1.1) PWd 0.95 cm (0.6-1.1) EF (Teich) 68.00% FS 38.20% EDV (Teich) 131.80 mL TAPSE 2.42 (<1.7) ESV (Teich) 42.20 mL LV Diastology E Decel Time 300.00 (160-240 msec) E/A Ratio 0.71 MED E' 6.40 (< 7 cm/sec) MED A' 16.00 cm/s E'/MED E' Ratio 14.77 (>14) LAT E' 10.40 (<10 cm/sec) LAT A' 17.70 cm/s E/LAT E' Ratio 9.09 (>14) Aortic Valve LVOT Max 129.00 (70-110 cm/s) LVOT VTI 29.00 cm AoV Peak Alexander. 153.00 (50-130 cm/s) AI PHT 578.00 ms AO Peak GR. 9.50 mmHg AO Mean GR. 5.00 (<5 mmHg) AO VTI 33.06 (18-25 cm) Mitral Valve MV E Max Alexander. 95.00 (40-130 cm/s) MV A Velocity 133.00 (40-130 cm/s) E/A Ratio 0.71 MV Decel. Time 300.00 (160-240 ms) MV PHT 88.00 ms Pulmonary Valve PV Peak Velocity 84.00 (50-150 cm/s) Tricuspid Valve TR P. Velocity 229.00 cm/s RAP Estimate 10.00 mmHg RVSP 31.00 mmHg Left Ventricle Left atrium is mildly enlarged, left ventricle is normal size, mild concentric left ventricular hypertrophy, visually estimated ejection fraction 55% with no regional wall motion abnormality, grade 1 diastolic dysfunction seen without tissue Doppler evidence of raise left atrial pressure. Right Ventricle Right atrium and right ventricular normal size and contractility, there is a pacemaker lead seen right atrium and right ventricle. Aortic Valve Aortic valve is minimally thickened and fibrosed, there is no aortic stenosis, there is mild aortic insufficiency. Mitral Valve Mitral valve is grossly normal, there is trace mitral regurgitation. Tricuspid Valve Tricuspid valve grossly normal, there is trace tricuspid regurgitation, calculated right ventricular systolic pressure is within normal range. Pulmonic Valve Pulmonic valve is poorly visualized. Great Vessels Aortic root is normal size. Pericardium No significant pericardial effusion noted. Conclusion 1. Mildly enlarged left atrium, normal left ventricular size, mild concentric left ventricular hypertrophy, visually estimated ejection fraction 55% with no regional wall motion abnormality, grade 1 diastolic dysfunction seen without tissue Doppler evidence of raise left atrial pressure. 2. Mild aortic, trace mitral and tricuspid regurgitation, calculated right ventricular systolic pressure within normal range. 3. No significant pericardial effusion noted. Electronically signed by : En Chavez MD 10/16/2020 19:10:08
--- NOTE | 2020-10-16 08:00 | CA_ITS ---
APPROVED REPORT Installation And Service Technician: CT Laterality: Bilateral Indications: tia Risk Factors Hyperlipidemia Diabetes Doppler Spectral Velocity Analysis ECA (R) 119.00/ cm/s ECA (L) 80.00/ cm/s dICA (R) 101.50/30.20 cm/s dICA (L) 83.50/32.70 cm/s [place] (R) 102.80/36.80 cm/s [place] (L) 74.90/27.30 cm/s pICA (R) 69.00/28.90 cm/s pICA (L) 64.70/22.50 cm/s dCCA (R) 73.80/21.20 cm/s dCCA (L) 73.20/21.90 cm/s pCCA (R) 76.40/18.00 cm/s pCCA (L) 87.10/19.20 cm/s Vert (R) 40.70/ cm/s Vert (L) 47.90/ cm/s ICA/CCA 1.40 ICA/CCA 1.10 Findings Duplex evaluation demonstrates stenosis of the right proximal internal carotid artery <20%. Duplex evaluation demonstrates stenosis of the left proximal internal carotid artery <20%. Duplex evaluation demonstrates antegrade flow of the bilateral Vertebral Arteries. Cysts noted on Thyroid. Conclusion Duplex evaluation demonstrates stenosis of the right proximal internal carotid artery <20%. Duplex evaluation demonstrates stenosis of the left proximal internal carotid artery <20%. Duplex evaluation demonstrates antegrade flow of the bilateral Vertebral Arteries. Cysts noted on Thyroid. Electronically signed by : Sheldon Garcia MD 10/16/2020 17:07:54
--- NOTE | 2020-10-16 08:16 | PC.NURSE ---
pt alert and oriented. no complaints voiced. ambulates without difficulty independently. vss. port patent and infusing per order. call light in reach. will continue to monitor
--- NOTE | 2020-10-16 08:39 | CT_ITS ---
Procedure: CT ANGIO NECK CLINICAL HISTORY: altered mental status COMPARISON: CT CT ANGIO HEAD from 10/16/2020 TECHNIQUE: IV Contrast: 100ml Isovue 370 Axial images obtained with sagittal and coronal reformats. All CT scans at the facility use one or more dose reduction, viz: automated exposure control, ma/kV adjustment per patient size (including targeted exams where dose is matched to indication, i.e. head), or iterative reconstruction technique. FINDINGS: CTA neck: The aortic arch and great vessels have an unremarkable appearance. Right carotid: Unremarkable. Left carotid: Unremarkable. Vertebrals: Unremarkable No stenosis, dissection, aneurysm, or other significant anomalies apparent. CTA brain: There is a small amount of calcific plaque in the cavernous and clinoid portion of the ICAs on both sides. No aneurysm, AVM, vascular dissection or major intracranial occlusive process apparent. Lung apices are clear. No enhancing lesion midline shift or mass effect IMPRESSION: Negative CTA of the neck and brain. Dictated by: Sheldon Garcia MD 10/16/2020 14:48 Sheldon Garcia MD in [facility] 10/16/2020 14:48
--- NOTE | 2020-10-16 08:39 | HMH.HP ---
*Admission Date: 10/15/20 <Dana Avalos - 10/16/20 09:09> *Chief complaint: Syncope <Dnaa Avalos - 10/16/20 09:09> *History of present illness: Ms. Flores is a 70-year-old female with a history of asthma, type 2 diabetes mellitus, acute [place], hyperlipidemia, congestive heart failure, pacemaker, A. fib, sleep apnea, acid reflux, bleeding ulcer, seizures, and peripheral neuropathy, who presented to [facility] after a syncopal episode at home. She does not recall exactly what happened but remembers her shaking her. When EMS arrived they noted a low blood sugar In the 60s. She was given D50 W and a sandwich on the scene. She became more arousable. On arrival to the ER she was somnolent but arousable. Blood sugar did improve to 123. She did receive an amp of narcan as well which made no difference. She gradually became more alert with no deficits. She then remembers being in the emergency room. To note patient was seen in the office on 10/05/2020 at which time she noted that she felt extremely fatigued. 3 days prior to this visit she had an episode where her found her with a grayish color and her lips looked blue. She attributed this to working in the yard. After lying down she felt better. Her also describes her passing out. When she awakened she had slurred speech. Patient also reported some dizziness prior to these episodes. She described having numbness in her left arm and sometimes was too weak to lift the arm at the time of the episode. This had all resolved by the time she was seen in the office. She also saw her director executive communications last week who interrogated her pacemaker and reported no abnormalities. Carotid ultrasound was planned. This a.m. patient states she is comfortable. She denies chest pain and shortness of breath. She states she did not sleep much during the night but arrived to her room about 2 AM. She has had echocardiogram and carotid ultrasound. 10/15/20 21:23: ABG pH 7.35 10/15/20 21:38: SARS-CoV-2 (PCR) Not detected, Influenza A Untype (PCR) Not detected, Influenza Type B (PCR) Not detected 10/15/20 22:10: WBC 6.7, RBC 3.71 L, Hgb 12.0 L, Hct 36.0 L, MCV 97.0, MCH 32.3 H, MCHC 33.2, RDW 13.9, Plt Count 197, MPV 8.3, Neut % (Auto) 68.9, Lymph % (Auto) 22.8, [place] % (Auto) 6.6, Eos % (Auto) 1.2, Baso % (Auto) 0.5, Neut # (Auto) 4.6, Lymph # (Auto) 1.5, [place] # (Auto) 0.4, Eos # (Auto) 0.1, Baso # (Auto) 0.0, ESR 16 10/15/20 22:10: Sodium 139, Potassium 4.3, Chloride 109 H, Carbon Dioxide 27, Anion Gap 7.3, BUN 15, Creatinine 0.60, Estimated Creat Clear 50, Estimated GFR 98, Est GFR ( Amer) 119, Glucose 74, Calcium 7.9 L, Total Bilirubin 0.3, AST 27, ALT 14, Alkaline Phosphatase 106, Troponin I < 0.01, C-Reactive Protein 0.4, Total Protein 5.8 L, Albumin 3.4 L, Globulin 2.4, Albumin/Globulin Ratio 1.4, TSH 1.37, Thyroxine (T4) 8.0 10/15/20 22:10: Hemoglobin A1c 5.6 10/15/20 22:10: PT 24.0 H, INR 2.15 H 10/15/20 22:25: Urine Color Yellow, Urine Appearance Clear, Urine pH 5.5, Ur Specific [place] >= 1.030, Urine Protein Negative, Urine Glucose (UA) Trace, Urine Ketones Negative, Urine Blood Negative, Urine Nitrate Negative, Urine Bilirubin Negative, Urine Urobilinogen 0.2, Ur Leukocyte Esterase Negative, Urine WBC Occasional, Urine Bacteria Trace 10/15/20 22:25: Urine Opiates Screen Negative, Urine Methadone Screen Negative, Ur Barbituates Screen Negative, Ur Phencyclidine Scrn Negative, Ur Amphetamines Screen Negative, U Benzodiazepines Scrn Negative, Urine Cocaine Screen Negative, U Marijuana (THC) Screen Negative Chest x-ray was negative for any acute cardiopulmonary abnormality.CT of the head showed no acute intracranial abnormality . This a.m. laboratory data shows the hemoglobin of 11.2 hematocrit of 34.7 and white blood cell count of 5600. Chemistries show sodium of 139 potassium of 4.3. BUN is 11 creatinine 0.6. Troponin I's have been negative x3. <Dana Avalos - 10/16/20 09:09>
--- NOTE | 2020-10-16 09:52 | HMH.PHAINT ---
MEDICATION RECONCILIATION COMPLETE USING LIST FROM MD OFFICE.
--- NOTE | 2020-10-16 10:18 | HMH.ITSTN ---
pt in shower at 1010. RN to call back when patient is out, to come down for CT
--- NOTE | 2020-10-16 14:22 | PC.NURSE ---
Pt down for CT at this time.
--- NOTE | 2020-10-16 19:17 | PC.NURSE ---
PT WAS D/C AT 1914
--- NOTE | 2020-10-16 20:03 | PC.NURSE ---
Flushed and removed port o cath.Flushed and NS and heaprin flush at approx 1900 prior to pts d/c without any difficulty.
--- NOTE | 2020-10-21 15:27 | HMH.DCSUM ---
General - General Admission date:: 10/16/20 <Charles Barrett - 12/02/20 22:42> 10/16/20 <DeborahAngelica - 10/21/20 15:34> Discharge date: 10/16/20 <JordiAngelica lucero - 10/21/20 15:34> HPI HPI: Ms. Flores is a 70-year-old female with a history of asthma, type 2 diabetes mellitus, acute [place], hyperlipidemia, congestive heart failure, pacemaker, A. fib, sleep apnea, acid reflux, bleeding ulcer, seizures, and peripheral neuropathy, who presented to [facility] after a syncopal episode at home. She does not recall exactly what happened but remembers her shaking her. When EMS arrived they noted a low blood sugar In the 60s. She was given D50 W and a sandwich on the scene. She became more arousable. On arrival to the ER she was somnolent but arousable. Blood sugar did improve to 123. She did receive an amp of narcan as well which made no difference. She gradually became more alert with no deficits. She then remembers being in the emergency room. To note patient was seen in the office on 10/05/2020 at which time she noted that she felt extremely fatigued. 3 days prior to this visit she had an episode where her found her with a grayish color and her lips looked blue. She attributed this to working in the yard. After lying down she felt better. Her also describes her passing out. When she awakened she had slurred speech. Patient also reported some dizziness prior to these episodes. She described having numbness in her left arm and sometimes was too weak to lift the arm at the time of the episode. This had all resolved by the time she was seen in the office. She also saw her sales agent trading stamps last week who interrogated her pacemaker and reported no abnormalities. Carotid ultrasound was planned. This a.m. patient states she is comfortable. She denies chest pain and shortness of breath. She states she did not sleep much during the night but arrived to her room about 2 AM. She has had echocardiogram and carotid ultrasound. Chest x-ray was negative for any acute cardiopulmonary abnormality. CT of the head showed no acute intracranial abnormality . This a.m. laboratory data shows the hemoglobin of 11.2 hematocrit of 34.7 and white blood cell count of 5600. Chemistries show sodium of 139 potassium of 4.3. BUN is 11 creatinine 0.6. Troponin I's have been negative x3. <Agnelica Cabrera - 10/21/20 15:34> Hospital Course Hospital Course: The patient's carotid duplex showed less than 20% stenosis bilaterally. Her echo showed an EF of 55% with grade 1 diastolic dysfunction. She also had a neck CTA which was negative. She did feel better and was stable to be discharged. She does have pending appointments with the sales agent trading stamps and the neurologist. <JordiLincoln luceroa - 10/21/20 15:34> Objective Vital signs: Temp Pulse Resp BP Pulse Ox 98.2 F 70 15 103/58 L 95 10/16/20 15:53 10/16/20 16:00 10/16/20 15:53 10/16/20 15:53 10/16/20 15:53 <ArnoldCharles Samy - 12/02/20 22:42> Temp Pulse Resp BP Pulse Ox 98.2 F 70 15 103/58 L 95 10/16/20 15:53 10/16/20 16:00 10/16/20 15:53 10/16/20 15:53 10/16/20 15:53 <Angelica Cabrera - 10/21/20 15:34> Narrative: - Constitutional no acute distress Comments: Sitting on the bedside eating her breakfast - *Routine HEENT Exam Head: Present: normocephalic, atraumatic Eye: Present: PERRL. Absent: conjunctival icterus, scleral injection, nystagmus ENT: Present: mucous membranes moist, oropharynx clear, dentition normal, nares patent - *Routine Neck Exam Present: supple, full ROM. Absent: carotid bruit, lymphadenopathy, thyromegaly - *Routine Respiratory Exam Present: crackles (Few bibasilar) - *Routine Cardiovascular Exam Present: RRR - *Routine Abdominal Exam Present: soft, normoactive bowel sounds. Absent: tenderness, distended, guarding, organomegaly, mass - *Routine Rectal Exam
== END 2020-10-16 19:15 | disposition home or self-care (01) ==
LOC: ER 23:55 → 2ND 10-16 01:22
PROVIDERS: Admitting Provider Family Medicine; Emergency Provider Emergency Medicine; PCP Family Medicine; Visit Provider Family Medicine
DX: G45.8 Other transient cerebral ischemic attacks and related syndromes (principal); Z20.822 Contact with and (suspected) exposure to COVID-19; Z79.01 Long term (current) use of anticoagulants; Z95.0 Presence of cardiac pacemaker; E11.9 Type 2 diabetes mellitus without complications; R55 Syncope and collapse; I25.2 Old myocardial infarction; I50.9 Heart failure, unspecified; I11.0 Hypertensive heart disease with heart failure; I48.91 Unspecified atrial fibrillation; I25.10 Atherosclerotic heart disease of native coronary artery without angina pectoris; K21.9 Gastro-esophageal reflux disease without esophagitis; E78.5 Hyperlipidemia, unspecified; R29.6 Repeated falls; Z79.899 Other long term (current) drug therapy; Z88.8 Allergy status to other drugs, medicaments and biological substances; G40.909 Epilepsy, unspecified, not intractable, without status epilepticus
CPT/HCPCS: G0378; 70450; 70496; 70498; 71045; 80048; 80053; 80305; 81001; 82803; 83036; 83735; 84145; 84436; 84443; 84484; 85025; 85610; 85651; 86140; 93005; 93306; 93880; 96365; 99284; J1642; Q9967; U0003

== ENCOUNTER 2020-11-13 10:04 | Emergency (ER) | payer MEDICARE, BC, SELFPAY ==
--- NOTE | 2020-11-13 11:05 | HMH.EDUTC ---
[facility] Disposition Clinical Impression: Exposure to COVID-19 virus Disposition: Home, Self-Care Condition on Discharge: Good Instructions: DI for COVID-19 (Suspected or Confirmed ), Preventing the Spread of Coronavirus Discharge Instructions Additional Instructions: Drink plenty of fluids. Take tylenol for pain or fever. Return if you begin to have difficulty breathing. Follow up with your regular doctor. GO TO THE ER FOR ANY WORSENING OR CONCERNING SYMPTOMS Quarantine until you know the results of your covid-19 test. If it is positive, the health department should call you and give you further instructions about your length of Quarantine and other things. Notify your school or workplace of your results and follow their instructions regarding return to work/school. Referrals: Charles Barrett MD [Primary Care Provider] - Time of Disposition: 11:06 Medical Decision Making - Medical Records Medical records reviewed: No: I reviewed the patient's medical records. - Radhames Inquiry Pt receiving controlled substance: No Vital Signs: 11/13/20 11:22 11/13/20 11:24 Temperature 98.1 F 98.1 F Temperature Source Oral Pulse Rate 72 Pulse Rate [Left] 72 Respiratory Rate 19 19 Blood Pressure 109/63 L Blood Pressure [Right Arm] 109/63 L Blood Pressure Mean [Right Arm] 78 02 Sat by Pulse Oximetry 98 [facility] HPI - General Stated complaint: Covid Shot, Exposure Time Seen by Provider: 11/13/20 11:05 - History of Present Illness Provider Complaint: She was exposed to covid around 3 days ago. She denies symptoms. - Related Data Home Medications Medication Instructions Recorded Confirmed Atorvastatin Calcium [Lipitor 40mg 40 mg PO HS 10/28/19 10/16/20 Tab] Cholecalciferol (Vitamin D3) 125 mcg PO DAILY 10/28/19 10/16/20 [Vitamin D3] Dronedarone HCl [Multaq 400mg 400 mg PO BID 10/28/19 10/16/20 tablet] Gabapentin [Gabapentin 300mg Cap] 900 mg PO HS 10/28/19 10/16/20 Montelukast Sodium [Singulair] 10 mg PO HS 10/28/19 10/16/20 Raloxifene HCl 60 mg PO HS 10/28/19 10/16/20 Ranolazine [Ranexa 500mg ER tablet] 1,000 mg PO BID 10/28/19 10/16/20 Trazodone HCl 50 - 100 mg PO HS PRN 10/28/19 10/16/20 Venlafaxine HCl [Effexor 37.5mg 37.5 mg PO DAILY 10/28/19 10/16/20 tablet] Warfarin Sodium [Coumadin 2mg 2 mg PO SUTUWETHSA 10/28/19 10/16/20 tablet] levETIRAcetam [Keppra 500mg tablet] 500 mg PO BID 10/28/19 10/16/20 Docusate Sodium [Stool Softener] 250 mg PO DAILYP PRN 10/15/20 10/16/20 Midodrine HCl [Midodrine 5mg 5 mg PO BID 10/15/20 10/16/20 Tablet] Omeprazole [Omeprazole 40mg 40 mg PO DAILY 10/15/20 10/16/20 Capsule] Warfarin Sodium [Coumadin 1mg 1 mg PO MOFR 10/15/20 10/16/20 tablet] Cyanocobalamin (Vitamin B-12) 1,000 mcg IM MONTHLY 10/16/20 10/16/20 [Cyanocobalamin 1,000mcg/mL Vial] Allergies Allergy/AdvReac Type Severity Reaction Status Date / Time codeine [CODEINE] Allergy Intermediate I-RASH Verified 10/16/20 01:46 hydromorphone [From DILAUDID] Allergy Unknown I-HIVES Verified 10/16/20 01:46 [facility] History - Hepatitis A Screen Attestation statement:: This patient has been screened for Hepatitis A risk factors. I have reviewed the patient's past medical history: Yes Medical History: Reports:: Arrhythmia, Asthma, Atherosclerotic Heart Disease, Atrial Fibrillation, Cancer (skin), Congestive Heart Failure, Coronary Artery Disease, Diabetes Mellitus Type 2, Gastroesophageal Reflux Disease(GERD), Hyperlipidemia, Internal Pacemaker, Kidney Stones, Myocardial Infarction Denies:: Diabetes Mellitus Type 1, MRSA, Seizures Other Medical History: Reports: Anemia, Arthritis, Cataracts Laterality Cases: Right: Arthroscopy Shoulder, Bilateral: Arthroscopy Knee, Tonsillectomy Other Surgeries: Yes: Appendectomy, Colonoscopy, Hysterectomy-Total, Hysterectomy-Partial, Pacemaker, Other (Rt shoulder RCR, Gastric bypass, kidney stone removal, breast biopsies)
[2020-11-13 11:22] VITALS: BP 109/63; PULSE 72; RESP 19; TEMP 36.7; O2SAT 98; BMI 26.4
[2020-11-13 11:24] VITALS: BP 109/63; PULSE 72; RESP 19; TEMP 36.7
== END 2020-11-13 11:25 | disposition home or self-care (01) ==
PROVIDERS: Emergency Provider Nurse Practitioner Family; PCP Family Medicine
DX: Z20.822 Contact with and (suspected) exposure to COVID-19 (principal); I50.9 Heart failure, unspecified; I48.0 Paroxysmal atrial fibrillation; K21.9 Gastro-esophageal reflux disease without esophagitis; E78.5 Hyperlipidemia, unspecified; I25.10 Atherosclerotic heart disease of native coronary artery without angina pectoris
CPT/HCPCS: G0463; 99202; U0003

== ENCOUNTER 2020-12-04 11:23 | Outpatient (CLI) | payer MEDICARE, BC, SELFPAY | END 2020-12-04 11:36 | disposition home or self-care (01) | LOC: INF 11:25 | PROVIDERS: PCP Family Medicine; Visit Provider Family Medicine | DX: Z45.2 Encounter for adjustment and management of vascular access device (principal) | CPT/HCPCS: 96523; J1642 ==

== ENCOUNTER 2021-07-18 09:48 | Outpatient (CLI) | payer MEDICARE, BC, SELFPAY | END 2021-07-18 10:45 | disposition home or self-care (01) | LOC: INF 09:50 | PROVIDERS: PCP Family Medicine; Visit Provider Family Medicine | DX: Z45.2 Encounter for adjustment and management of vascular access device (principal) | CPT/HCPCS: 96523; J1642 ==

== ENCOUNTER 2021-07-22 10:05 | Outpatient (CLI) | payer MEDICARE, BC, SELFPAY ==
[2021-07-22 10:19] VITALS: BMI 27.3
[2021-07-22 11:35] LABS: Basophils # 0.1 K/mm3 (0-0.2); Basophils % 1.6 % (0.1-2.0); Eosinophils # 0.1 K/mm3 (0.0-0.4); Eosinophils % 1.5 % (0.1-12.0); Hematocrit 40.8 % (37.0-47.0); Hemoglobin 13.2 g/dL (12.2-16.2); Lymphocytes # 1.8 K/mm3 (0.7-4.5); Mean Corpuscular HGB Conc 32.3 g/dL (31.8-35.4); Mean Corpuscular Hemoglobin 32.4 pg (27.0-31.2); Mean Corpuscular Volume 100.2 fl (81-99); Mean Platelet Volume 8.2 fl (7.4-10.4); Monocytes # 0.4 K/mm3 (0.1-1.0); Monocytes % 6.3 % (1.7-9.3); Neutrophils # 3.2 K/mm3 (1.8-7.8); Neutrophils % 57.6 % (37.0-80.0); Platelet Count 215 K/mm3 (142-424); Red Blood Count 4.07 M/mm3 (4.20-5.40); Red Cell Distribution Width 13.2 % (11.5-17.5); White Blood Count 5.5 K/mm3 (4.8-10.8)
[2021-07-22 11:38] LABS: Chloride 107 mmol/L (98-107); Potassium 4.4 mmoL/L (3.5-5.1); Sodium 140 mmol/L (136-145)
[2021-07-22 11:40] LABS: Blood Urea Nitrogen 10 mg/dl (7-17); Cholesterol 172 mg/dl (140-200); Creatinine Clearance Estimated 50 mL/min (50-200); Estimated Glomerular Filt Rate 98 ml/min (>60); GFR (African American) 119 ML/MIN (>60); Triglycerides 59 mg/dl (30-150); VLDL Cholesterol 12 mg/dL (0-40)
[2021-07-22 11:41] LABS: Alanine Aminotransferase 19 U/L (12-78); Albumin Level 3.6 g/dl (3.5-5.0); Albumin/Globulin Ratio 1.5 (1.1-1.8); Alkaline Phosphatase 72 U/L (38-126); Anion Gap 6.4 mEq/L (5-15); Aspartate Amino Transferase 37 U/L (14-36); Bilirubin,Total 0.4 mg/dl (0.2-1.3); Calcium 8.8 mg/dl (8.4-10.2); Carbon Dioxide 31 mmol/L (22.0-30.0); Chol/HDL Ratio 1.8 (1-3.5); Globulin 2.4 g/dL (1.3-3.2); Glucose 98 mg/dl (74-100); HDL Cholesterol 97 mg/dl (40-60)
[2021-07-22 11:48] LABS: Hemoglobin A1C 5.6 % (4.0-6.0)
[2021-07-22 11:51] LABS: Direct LDL Cholesterol 49.05 mg/dL (100-129)
== END 2021-07-22 11:40 | disposition home or self-care (01) ==
LOC: INF 10:06
PROVIDERS: PCP Family Medicine; Visit Provider Family Medicine
DX: Z45.2 Encounter for adjustment and management of vascular access device (principal); E11.9 Type 2 diabetes mellitus without complications; E78.5 Hyperlipidemia, unspecified
CPT/HCPCS: 36415; 80053; 80061; 83036; 85025; J1642

== ENCOUNTER → 2021-07-31 12:12 | Outpatient (CLI) | payer MEDICARE, BC, SELFPAY ==
--- NOTE | 2021-07-31 12:22 | XR_ITS ---
FINAL REPORT CLINICAL HISTORY: . acute bronchitis asthma COMPARISON: October 15, 2020 FINDINGS: PA and lateral views of the chest were obtained. There is no change in support tubes and lines. The cardiac and mediastinal silhouettes are within normal limits. The lungs are clear. There is no pleural effusion or pneumothorax. No acute osseous abnormality is identified. IMPRESSION: No radiographic evidence of acute cardiac or pulmonary disease. Reviewed, Interpreted and Dictated by Geovanna Garcia MD Transcribed by Ishmael Waggoner Authenticated by Geovanna Garcia MD on 07/31/2021 01:17:47 PM [facility]
== END ==
PROVIDERS: PCP Family Medicine; Visit Provider Nurse Practitioner Family
DX: J40 Bronchitis, not specified as acute or chronic (principal)
CPT/HCPCS: 71046

== ENCOUNTER → 2021-08-09 09:55 | Outpatient (CLI) | payer MEDICARE, BC, SELFPAY ==
[2021-08-09 10:31] LABS: Basophils # 0.2 K/mm3 (0-0.2); Basophils % 2.5 % (0.1-2.0); Eosinophils # 0.1 K/mm3 (0.0-0.4); Eosinophils % 1.2 % (0.1-12.0); Hematocrit 43.1 % (37.0-47.0); Hemoglobin 13.5 g/dL (12.2-16.2); Lymphocytes # 2.3 K/mm3 (0.7-4.5); Lymphocytes % 31.8 % (10-50); Mean Corpuscular HGB Conc 31.4 g/dL (31.8-35.4); Mean Corpuscular Hemoglobin 31.7 pg (27.0-31.2); Mean Platelet Volume 8.9 fl (7.4-10.4); Monocytes # 0.4 K/mm3 (0.1-1.0); Monocytes % 6.1 % (1.7-9.3); Neutrophils # 4.1 K/mm3 (1.8-7.8); Neutrophils % 58.5 % (37.0-80.0); Platelet Count 225 K/mm3 (142-424); Red Blood Count 4.27 M/mm3 (4.20-5.40); Red Cell Distribution Width 13.7 % (11.5-17.5); White Blood Count 7.1 K/mm3 (4.8-10.8)
[2021-08-09 11:17] LABS: Chloride 104 mmol/L (98-107)
[2021-08-09 11:18] LABS: Potassium 4.6 mmoL/L (3.5-5.1); Sodium 136 mmol/L (136-145)
[2021-08-09 11:20] LABS: Blood Urea Nitrogen 7 mg/dl (7-17); Estimated Glomerular Filt Rate 82 ml/min (>60); GFR (African American) 99 ML/MIN (>60)
[2021-08-09 11:21] LABS: Glucose 111 mg/dl (74-100)
[2021-08-09 11:22] LABS: Anion Gap 4.6 mEq/L (5-15); Carbon Dioxide 32 mmol/L (22.0-30.0)
== END ==
PROVIDERS: PCP Family Medicine; Visit Provider Surgery
DX: Z01.818 Encounter for other preprocedural examination; R55 Syncope and collapse; I87.8 Other specified disorders of veins; Z20.822 Contact with and (suspected) exposure to COVID-19
CPT/HCPCS: 36415; 80048; 85025; C9803; U0003; U0005

== ENCOUNTER 2021-08-12 09:02 | Day surgery (SDC) | payer MEDICARE, BC, SELFPAY ==
[2021-08-08 11:47] VITALS: BMI 27.0
[2021-08-12] VITALS (13 sets, daily range): BP systolic 114–142; BP diastolic 58–82; PULSE 66–73; RESP 14–18; TEMP 36.1–36.6; O2SAT 95–100
[2021-08-12 09:42] LABS: POC Glucose,Bedside 91 (70-110)
--- NOTE | 2021-08-12 09:54 | HMH.ANESCL ---
[facility] Anesthesia Checklist - Patient Identification Patient Identification: Arm Band - Structural Data Admitted From: Home Planned Operative Procedure/s: Port removal/placement Consent for Planned Operative Procedure(s) Verified: Yes - NPO Status Verified Time NPO: 00:00 - Additional verifications Anesthesia Reactions: No Hx Blood Transfusions: Yes Blood Transfusion Reaction: No - Airway Assessment C-Spine Mobility Assessed: Yes TMJ Mobility Assessed: Yes Dentition: Good Dentition - Neurological Assessment Level of Consciousness: Awake Hx Seizures: No Numbness or tingling in extremities: No - Anesthesia Plan Anesthesia Risk discussed: Yes Anesthesia Plan: Verified ASA Class: III Anesthesia Type: General [facility] History I have reviewed the patient's past medical history: Yes Medical History: Reports:: Arrhythmia, Asthma, Atherosclerotic Heart Disease, Atrial Fibrillation, Cancer (melenoma), Congestive Heart Failure, Coronary Artery Disease, Diabetes Mellitus Type 2, Gastroesophageal Reflux Disease(GERD), Hyperlipidemia, Internal Pacemaker, Kidney Stones, Myocardial Infarction, Seizures (LAST SEIZURE 8 YEARS AGO) Denies:: Diabetes Mellitus Type 1, MRSA *Have you ever received a pneumonia vaccine?: Yes *Have you received a flu vaccine this season?: Yes Other Medical History: Reports: Anemia, Arthritis, Cataracts. Denies: Blood Transfusion Reaction Anesthesia experience/problems:: None Laterality Cases: Right: Arthroscopy Shoulder, Bilateral: Arthroscopy Knee, Tonsillectomy Other Surgeries: Yes: Appendectomy, Colonoscopy, Hysterectomy-Total, Hysterectomy-Partial, Pacemaker, Other (Rt shoulder RCR, Gastric bypass, kidney stone removal, breast biopsies) Amputation: No Fractures: No - *Social History Smoking Status: Never smoker Alcohol Intake: never Alcohol Intake Frequency:: a few times a week Substance Use Type: denies use *Occupational Status:: retired Housing: house Household Members: spouse *Travel in the last 8 weeks: None Family Hx:: No significant family history
--- NOTE | 2021-08-12 12:30 | FL_ITS ---
FINAL REPORT CLINICAL HISTORY: pacemaker removal FINDINGS: FLUORO TIME PROCEDURE: Pacemaker removal. FINDINGS: Fluoroscopy time was provided by the radiology department for the clinical service. Two films were obtained. Fluoroscopy exposure time: 4:14 minutes IMPRESSION: See above Reviewed, Interpreted and Dictated by Alfredo Sandra III, MD Transcribed by Leandra Russell Authenticated and . [facility]
--- NOTE | 2021-08-12 12:47 | HMH.ANESI ---
[facility] Anesthesia Record Part I Intake, IV Amount: 350 Estimated blood loss (mL): 10 Urine output (mL): 0 Blood Pressure: 120/82 SaO2: 96 Pulse Rate: 70 Respiratory Rate: 14 Temperature: 97.3 F Patient is:: Drowsy Stable to PACU at:: 12:43
--- NOTE | 2021-08-12 12:52 | XR_ITS ---
FINAL REPORT CLINICAL HISTORY: post op COMPARISON: July 31, 2021 FINDINGS: A single portable view of the chest was obtained. A left subclavian pacemaker is noted. The heart size and pulmonary vascularity are within normal limits. The mediastinum is within normal limits. No acute pulmonary abnormality is identified. The bony thorax is intact. There are postoperative changes of the right humerus. IMPRESSION: No active cardiopulmonary disease. Reviewed, Interpreted and Dictated by Alfredo Sandra III, MD Transcribed by Sandra Erwin Authenticated and [facility]
--- NOTE | 2021-08-12 13:15 | SUR.OPER ---
late entry.... 1157-Consulted Dr. Rodriguez to the OR at this time per Dr. Reid's request, notified Dr. Rodriguez's offic 1200-Dr. Rodriguez at bedside at this time consulting with Dr. Reid
[2021-08-12 13:21] LABS: POC Glucose,Bedside 75 (70-110)
--- NOTE | 2021-08-12 13:39 | HMH.OPNOTE ---
Date of procedure: 08/12/21 Pre-op Diagnosis:: Nonfunctioning right subclavian venous access device with reservoir port Post-op Diagnosis:: Same Procedure performed:: Attempted removal at venous access device Surgeon:: Alfredo Reid MD POLO COACH:: Other Anesthesia: LMA Estimated blood loss (mL): 15 Clinical Note:: Patient is a 71-year-old female with a history of asthma, type 2 diabetes mellitus, previous acute [place], hyperlipidemia, congestive heart failure, pacemaker, A. fib, sleep apnea, acid reflux, bleeding ulcer, seizures, and peripheral neuropathy. She has a left-sided pacemaker. She has had quite poor venous access and has had previous venous access port placed for this reason. She has had 2 venous access ports in the right subclavian. Last port was placed about 10 years ago. Recently this has become nonfunctional. It has been unable to be accessed and aspirated. She was sent for surgical evaluation for removal and replacement. Plan was made for removal of nonfunctional venous access port with replacement. Operative findings:: Catheter densely adherent to the subclavian vein or vena cava. Operative note:: Patient was taken to the operating room. She was positioned in supine position. Anesthesia was induced via LMA. Neck and upper chest were prepped and draped in the standard surgical fashion. Attention was first turned to removal of the nonfunctional port. Prior to doing so the port was accessed. He was unable to be flushed or irrigated. Therefore plan was made to proceed with removal. An incision was made in the previous scar where reservoir port was placed. Careful dissection was carried down to the reservoir port. It was dissected free from its fibrous capsule. Gentle traction was then placed on the catheter. Catheter was unable to be removed. Limited counterincision was made overlying the catheter at its subclavian insertion site. Dissection was carried down to the catheter. Traction was then applied as well. The catheter would not extract. Prolonged dissection was carried out to the clavicle with careful limited sharp dissection and some blunt dissection. Dissection was carried out posterior to the clavicle. Despite thorough dissection of the catheter could not be dislodged from its position in the superior vena cava. The port was then cut from the catheter and the catheter delivered through the subclavian incision. Guidewire was inserted but it would not thread all the way through the catheter. Fluoroscopy was used to evaluate for any anomaly. Catheter appeared to be intact. The subclavian incision was then extended somewhat and some of the muscles were divided to allow dissection down to posterior to the clavicle. Despite doing so the catheter was still unable to be removed and dislodged. Cardiology was contacted for intraoperative recommendations and consultation. There was concern that the catheter may be adherent to the superior vena cava. Ultimately hydrophilic guidewire was able to be inserted through the catheter. However with traction the catheter was still unable to be removed. Intraoperative discussion was held with cardiology at [facility]. It was advised to prevent catastrophic tear of the vena cava or breaking the catheter off it was recommended residual catheter be secured within the wound leaving enough residual catheter to be able to access this for cannulation and laser removal. Discussion was held intraoperatively with Dr. Adi Finney and postoperatively for definitive procedure. Wound was thoroughly irrigated. There was good hemostasis. Subcutaneous pocket at the site of the port was closed with subdermal running 2-0 Vicryl. Skin was closed with 4-0 Monocryl in a subcuticular fashion. The catheter was rolled and secured in a coiled fashion with 2-0 PDS ties. Tip of the catheter was clipped with several hemoclips. Catheter was placed in the wound. Skin was close
--- NOTE | 2021-08-12 17:09 | HMH.ANESII ---
[facility] Anesthesia Record Part II Discharge Time: 13:33 Destination: Home PACU nurse assessment reviewed?: Yes Patient Condition:: Good Anesthesia Complications:: None Swallowing reflex intact?: Yes Cyanosis?: No Blood Pressure: 116/79 Pulse Rate: 70 Temperature: 97.1 F Mental Status: Alert & Oriented Pain level:: 6 Nausea and/or vomitting:: None Intake, IV Amount: 0
== END 2021-08-12 14:22 | disposition home or self-care (01) ==
LOC: OR 09:04
PROVIDERS: PCP Family Medicine; Visit Provider Surgery
PROC: (CPT 36590; principal; 2021-08-12 09:15)
DX: Z53.09 Procedure and treatment not carried out because of other contraindication (principal); T82.594A Other mechanical complication of infusion catheter, initial encounter; E11.9 Type 2 diabetes mellitus without complications; Z79.899 Other long term (current) drug therapy; Y83.1 Surgical operation with implant of artificial internal device as the cause of abnormal reaction of the patient, or of later complication, without mention of misadventure at the time of the procedure; I11.0 Hypertensive heart disease with heart failure; I50.9 Heart failure, unspecified; I48.91 Unspecified atrial fibrillation
CPT/HCPCS: 36589; 71045; 76000; 82962; 96374; C1769; C1788; J1642; J2405

== ENCOUNTER → 2022-02-03 10:49 | Outpatient (CLI) | payer MEDICARE, BC, SELFPAY ==
--- NOTE | 2022-02-03 11:00 | XR_ITS ---
FINAL REPORT CLINICAL HISTORY: CHEST WALL PAIN COMPARISON: August 2021 FINDINGS: CHEST TWO-VIEW The lungs are clear. There is no evidence of effusion or other pleural disease. The mediastinum as a normal appearance. The cardiac silhouette is unremarkable. Left-sided pacemaker. IMPRESSION: No acute findings. Reviewed, Interpreted and Dictated by Avelino Richmond MD Transcribed by Ishmael Waggoner Authenticated and [facility]
--- NOTE | 2022-02-03 11:00 | XR_ITS ---
FINAL REPORT CLINICAL HISTORY: RT POSTERIOR RIB PAIN FINDINGS: 3 views of the right ribs were obtained. There is no acute fracture. The visualized lungs are clear. No pneumothorax is identified. IMPRESSION: No rib fracture or pneumothorax identified. Reviewed, Interpreted and Dictated by Avelino Richmond MD Transcribed by Ishmael Waggoner Authenticated and [facility]
== END ==
PROVIDERS: PCP Family Medicine; Visit Provider Nurse Practitioner Family
DX: R07.89 Other chest pain (principal)
CPT/HCPCS: 71046; 71100

== ENCOUNTER → 2022-05-02 09:19 | Outpatient (CLI) | payer MEDICARE, BC, SELFPAY ==
--- NOTE | 2022-05-02 09:34 | ECG_ITS ---
APPROVED REPORT Exam: Resting ECG HR:70 bpm ECG Measurements Heart Rate 70 AXES DC 167 P 222 QRSd 162 QRS -76 QT 440 T 83 QTc 461 Conclusion ELECTRONIC ATRIAL PACEMAKER ELECTRONIC VENTRICULAR PACEMAKER ABNORMAL RHYTHM ECG UNCONFIRMED REPORT Electronically signed by : Yared Murguia MD 05/03/2022 20:01:48
[2022-05-02 09:52] LABS: Microscopic, Urine URINE MICROSCOPIC (MICROSCOPIC)
[2022-05-02 10:11] LABS: Basophils # 0.1 K/mm3 (0-0.2); Basophils % 1.6 % (0.1-2.0); Eosinophils # 0.1 K/mm3 (0.0-0.4); Eosinophils % 2.3 % (0.1-12.0); Hematocrit 41.2 % (37.0-47.0); Hemoglobin 12.8 g/dL (12.2-16.2); Lymphocytes % 38.1 % (10-50); Mean Corpuscular HGB Conc 31.1 g/dL (31.8-35.4); Mean Corpuscular Hemoglobin 30.5 pg (27.0-31.2); Mean Corpuscular Volume 98.1 fl (81-99); Mean Platelet Volume 8.6 fl (7.4-10.4); Monocytes # 0.4 K/mm3 (0.1-1.0); Monocytes % 6.6 % (1.7-9.3); Neutrophils # 2.7 K/mm3 (1.8-7.8); Neutrophils % 51.3 % (37.0-80.0); Platelet Count 257 K/mm3 (142-424); White Blood Count 5.3 K/mm3 (4.8-10.8)
--- NOTE | 2022-05-02 10:16 | XR_ITS ---
FINAL REPORT CLINICAL HISTORY: pre-op - h/o asthma - pacemaker in place COMPARISON: 02/03/2022 FINDINGS: Two views of the chest were obtained. Left subclavian pacer is identified. The heart size and pulmonary vascularity are within normal limits. The mediastinum is normal. No acute pulmonary abnormality is identified. There is no pneumothorax. The bony thorax is intact. IMPRESSION: No active cardiopulmonary disease. Reviewed, Interpreted and Dictated by Alfredo Sandra III, MD Transcribed by Dana Glass Authenticated and [facility]
[2022-05-02 10:26] LABS: Appearance,Urine CLEAR (Clear); Bilirubin,Urine Negative (Negative); Blood, Urine Negative (Negative); Color,Urine YELLOW (Yellow); Glucose,Urine (UA) Negative (Negative); Ketones,Urine Negative (Negative); Leukocyte Esterase,Urine Negative (Negative); Nitrate,Urine Negative (Negative); PH,Urine 5.5 (5.0-8.5); Protein,Urine Negative (Negative); Specific Gravity, Urine >= 1.030 (1.005-1.030); Urobilinogen,Urine 0.2 EU/dl (0.2)
[2022-05-02 10:29] LABS: INR 1.02 (0.9-1.1)
[2022-05-02 11:10] LABS: Bacteria,Urine Trace /lpf; Squamous Epithelial Cell,Urine Occasional #/hpf (0-5)
[2022-05-02 11:38] LABS: Chloride 108 mmol/L (98-107); Sodium 138 mmol/L (136-145)
[2022-05-02 11:39] LABS: Potassium 4.5 mmoL/L (3.5-5.1)
[2022-05-02 11:41] LABS: Alanine Aminotransferase 21 U/L (12-78); Alkaline Phosphatase 76 U/L (38-126); Anion Gap 3.5 mEq/L (5-15); Aspartate Amino Transferase 35 U/L (14-36); Bilirubin,Total 0.5 mg/dl (0.2-1.3); Blood Urea Nitrogen 10 mg/dl (7-17); Carbon Dioxide 31 mmol/L (22.0-30.0); Estimated Glomerular Filt Rate 82 ml/min (>60); GFR (African American) 99 ML/MIN (>60)
[2022-05-02 11:42] LABS: Albumin Level 3.4 g/dl (3.5-5.0); Albumin/Globulin Ratio 1.5 (1.1-1.8); Calcium 8.1 mg/dl (8.4-10.2); Globulin 2.2 g/dL (1.3-3.2); Glucose 91 mg/dl (74-100); Total Protein,Serum 5.6 g/dl (6.3-8.2)
== END ==
PROVIDERS: PCP Family Medicine; Visit Provider Family Medicine
DX: Z01.818 Encounter for other preprocedural examination (principal); Z51.81 Encounter for therapeutic drug level monitoring; Z79.01 Long term (current) use of anticoagulants; Z79.899 Other long term (current) drug therapy
CPT/HCPCS: 36415; 71046; 80053; 81001; 83036; 85025; 85610; 85730; 93005

== ENCOUNTER 2022-10-09 09:00 | Outpatient (RCR) | payer MEDICARE, BC, SELFPAY ==
--- NOTE | 2022-08-05 08:49 | HMH.PTOPEV ---
PT Outpatient Evaluation Rehab PT Outpatient Evaluation Start: 08/05/22 08:10 Freq: Status: Active Protocol: Document 08/05/22 08:10 SARAH (Rec: 08/05/22 08:49 SARAH [id number]) E-signed By Benjamin Dunn, PT Outpatient Therapy Subjective History Subjective History Pt presents s/p right TKA on while in [place]. Pt reports returning from [place] ~ 1 week ago, and 'the traveling caused me to get pretty stiff. 'Pt rpeorts ~6 weeks of skilled P.T. 'went well, but I need to get stronger and get it moving again.' Pt also reports some hypersensitivity to light touch on anterior-lateral aspect of right knee. PMH: pacemaker Chief Complaint Pain,Stiff,Paresthesia, Weakness Symptom Type Ache,Sharp,Dull,Burning Symptoms Relieved By Rest/Positioning,Ice Symptoms Aggravated By Standing,Physical Activity, Walking Prior Functional Limitations Housework,Standing,Walking, Stairs Current Functional Limitations Housework,Standing,Squatting, Walking,Stairs Symptom Description Constant but Variable Level of pain today (0-10) 5 Pain scale - at its best (0-10) 4 Pain scale - at its worst (0-10) 8 Hip/Knee Eval Gait Observation General Gait Pattern Observation Antalgic Gait Assistive Device Assistive Devices None / NA Palpation Tenderness right Knee Palpation Finding Tenderness Knee Palpation Overall Comment 4/4 anterio-lateral R knee, 1- 2/4 medial jt line MMT left Hip Flexion Strength Grade 4 Good Hip Abduction Strength Grade 4 Good Hip Adduction Strength Grade 4 Good Hip Extension Strength Grade 4 Good Knee Extension Strength Grade 5 Normal Knee Flexion Strength Grade 5 Normal right Hip Flexion Strength Grade 4- Good- Hip Abduction Strength Grade 3- Fair- Hip Adduction Strength Grade 3+ Fair+ Hip Extension Strength Grade 4- Good- Knee Extension Strength Grade 4- Good- Knee Flexion Strength Grade 3+ Fair+ ROM Knee Flexion Active Range of Motion ( 0-112 degrees) Outpatient Therapy Assessment Impairments Problems/Impairmments Palpation Tenderness,Impaired Range of Motion,Impaired
--- NOTE | 2022-09-18 10:08 | HMH.RHREAS ---
Rehab Reassessment Rehab OP Re-assessment Start: 08/05/22 08:10 Freq: Status: Active Protocol: Document 09/18/22 09:27 SARAH (Rec: 09/18/22 10:07 SARAH [id number]) E-signed By Benjamin Dunn, PT Rehab Re-assessment Subjective Subjective Pt reports increased stiffness in right knee and pain @ 1-4/ 10 on VAS attributed to absence from skilled P.T. and from noncompliance w/HEP Objective Objective Notes AROM: RIGHT KNEE FLX 0-113 PROM: RIGHT KNEE FLX 0-117 MMT: RIGHT HIP FLX 4-/5, R HIP ABD 3+/5, R KNEE EXT 4/5, R KNEE FLX 4-/5 TTP: RIGHT KNEE MEDIAL JT LINE /MCL 3/4, LATERAL RIGHT KNEE JT LINE 2-3/4 GAIT: ANTALGIC ON LEVEL TERRAIN NO A.D. Assessment Progress Assessment Slower Than Expected Assessment Notes IMPROVED ROM, STRENGTH, AND TTP(SLIGHT) Patient goals met STG'S 05/13 Goals Not Met STG'S 06/13, LTG'S 11/15 Plan Plan Pt to continue w/skilled P.T. to make further improvements in ROM, strength, and TTP to allow for optimal function Frequency of Therapy 1-2x/wk Duration of therapy 3-5wks Time and Billing Re-Eval Time 10 Re-Eval Billing Units 0 PHYSICIAN CERTIFICATION: I certify the specified therapy services for Dagmar Flores are required, authorized, and reviewed every 30 days.
== END 2022-10-09 09:05 | disposition home or self-care (01) ==
LOC: PT 09:00
PROVIDERS: PCP Family Medicine; Visit Provider Family Medicine
DX: M25.561 Pain in right knee (principal); Z96.651 Presence of right artificial knee joint
CPT/HCPCS: 97010; 97110; 97112; 97163; 97164; 97530

== ENCOUNTER 2022-10-14 15:40 | Emergency (ER) | payer MEDICARE, BC, SELFPAY ==
[2022-10-14] VITALS (11 sets, daily range): BP systolic 124–164; BP diastolic 64–84; PULSE 65–74; RESP 18–19; TEMP 36.6–36.7; O2SAT 95–100; BMI 26.2
--- NOTE | 2022-10-14 13:46 | ECG_ITS ---
APPROVED REPORT Exam: Resting ECG HR:72 bpm ECG Measurements Heart Rate 72 AXES QRSd 132 QRS 57 QT 389 T -85 QTc 414 Conclusion Biventricular pacer with occasional Pacs noted. Appropriate LBBB changes noted UNCONFIRMED REPORT Electronically signed by : Yared Murguia MD 10/14/2022 20:45:33
--- NOTE | 2022-10-14 16:01 | HMH.EDGENADL ---
Discharge Plan Disposition Patient Disposition: Home, Self-Care Condition: Good Prescriptions Prescriptions: No Action Eliquis 5 mg tablet 5 mg PO BID midodrine 5 MG tablet 5 mg PO BID omeprazole 40 MG capsule,delayed release(DR/EC) 40 mg PO DAILY Rx Instructions: TAKE 30 MIN BEFORE BREAKFAST cyanocobalamin (vitamin B-12) 1,000 MCG/ML solution 1,000 mcg IM MONTHLY hydrocodone-acetaminophen 1 TAB tablet 1 - 2 tab PO Q6HP PRN (Reason: Moderate Pain) Qty: 21 0RF atorvastatin 40 MG tablet 40 mg PO HS levetiracetam 500 MG tablet 500 mg PO BID venlafaxine 37.5 MG tablet 37.5 mg PO DAILY gabapentin 300 MG capsule 900 mg PO HS montelukast 10 MG tablet 10 mg PO HS ranolazine 500 MG tablet extended release 12 hr 1,000 mg PO BID dronedarone 400 MG tablet 400 mg PO BID raloxifene 60 MG tablet 60 mg PO HS cholecalciferol (vitamin D3) 125 MCG capsule 125 mcg PO DAILY Referrals Follow up/Referrals: Charles Barrett MD [Primary Care Provider] - See instructions Activity Restrictions/Add. Instructions Additional Instructions/Restrictions: Please follow-up with your primary care provider. Please return to the emergency department if you develop any new or worsening symptoms or become concerned for your health. Clinical Impressions Clinical Impression: Hypoglycemia, Syncope Instructions Patient Instructions: DI for Syncope in Adults (Fainting), DI for Syncope in Children (Fainting) Discharge ED Provider: Mani Brower Adult HPI General Chief complaint: Syncope Stated complaint: dizzy, SOA Time Seen by Provider: 10/14/22 15:50 History of Present Illness HPI narrative: 72-year-old female presents with episode of presyncope approximately 30 minutes prior to arrival. Patient has history of A-fib status post AV ablation and is now pacemaker dependent. She is approximately 3 months out from requiring a pacemaker change, this will be her fourth pacemaker. She follows in [place]. Patient reports that she was walking in to a gas station to buy a ladder to get when she suddenly felt her knees buckle and felt ill. She denies any specific chest pain or shortness of breath at that time. She started to feel better a few minutes later. She reports that she has had symptoms like this before but they were related to her A-fib and happened a long time ago. Patient also has history of seizures but this did not feel like a seizure episode, has not had seizures in a long time. Related Data Home Medications Medication Instructions Recorded Confirmed atorvastatin 40 mg tablet 40 mg PO HS Cholesterol 10/28/19 08/27/21 cholecalciferol (vitamin D3) 125 125 mcg PO DAILY Supplement 10/28/19 08/27/21 mcg (5,000 unit) capsule dronedarone 400 mg tablet 400 mg PO BID aFIB 10/28/19 08/27/21 gabapentin 300 mg capsule 900 mg PO HS pain 10/28/19 08/27/21 levetiracetam 500 mg tablet 500 mg PO BID seizure 10/28/19 08/27/21 montelukast 10 mg tablet 10 mg PO HS Allergy symptoms 10/28/19 08/27/21 raloxifene 60 mg tablet 60 mg PO HS unknown 10/28/19 08/27/21 ranolazine 500 mg tablet,extended 1,000 mg PO BID unknown 10/28/19 08/27/21 release,12 hr venlafaxine 37.5 mg tablet 37.5 mg PO DAILY Depression 10/28/19 08/27/21 midodrine 5 mg tablet 5 mg PO BID . 10/15/20 08/27/21 omeprazole 40 mg capsule,delayed 40 mg PO DAILY GERD 10/15/20 08/27/21 release cyanocobalamin (vitamin B-12) 1,000 mcg IM MONTHLY Supplement 10/16/20 08/27/21 1,000 mcg/mL injection solution apixaban 5 mg tablet (Eliquis) 5 mg PO BID HEART HEALTHY 08/06/21 08/27/21 Previous Rx's Medication Instructions Recorded hydrocodone 5 mg-acetaminophen 325 1 - 2 tab PO Q6HP PRN Moderate 08/12/21 mg tablet Pain #21 tabs Allergies Allergy/AdvReac Type Severity Reaction Status Date / Time codeine [CODEINE] Allergy Intermediate I-RASH Verified 08/27/21 13:45 hydr
--- NOTE | 2022-10-14 16:17 | ECG_ITS ---
APPROVED REPORT Exam: Resting ECG HR:78 bpm ECG Measurements Heart Rate 78 AXES CA 173 P 213 QRSd 173 QRS 153 QT 433 T 96 QTc 467 Conclusion Bi ventricular paced rhythm with appropriate LBBB noted Abnormal ECG Electronically signed by : Yared Murguia MD 10/14/2022 20:44:05
--- NOTE | 2022-10-14 16:20 | PC.NURSE ---
Cardiology at BS to interrogate pacemaker
--- NOTE | 2022-10-14 16:21 | PC.NURSE ---
pt assisted to bathroom via wheelchair and tech Britta. Shobha called for myself for assistance due to pt getting diaphoretic, nauseated and felt that she was going to pass out when she stood up from using the bathroom. Pt assisted to wheelchair by myself and staff and transported back to her room, EKG performed and placed back on heart monitor with vital signs taken. WNL at this time, MD aware. No new orders at this time
[2022-10-14 16:29] LABS: Microscopic, Urine URINE MICROSCOPIC (MICROSCOPIC)
[2022-10-14 16:34] LABS: Basophils % 0.4 % (0.1-2.0); Eosinophils # 0.1 K/mm3 (0.0-0.4); Eosinophils % 1.7 % (0.1-12.0); Hematocrit 42.6 % (37.0-47.0); Hemoglobin 12.8 g/dL (12.2-16.2); Lymphocytes # 2.2 K/mm3 (0.7-4.5); Lymphocytes % 34.9 % (10-50); Mean Corpuscular HGB Conc 30.1 g/dL (31.8-35.4); Mean Corpuscular Volume 89.8 fl (81-99); Mean Platelet Volume 8.6 fl (7.4-10.4); Monocytes # 0.3 K/mm3 (0.1-1.0); Monocytes % 5.4 % (1.7-9.3); Neutrophils # 3.5 K/mm3 (1.8-7.8); Neutrophils % 57.5 % (37.0-80.0); Platelet Count 253 K/mm3 (142-424); Red Blood Count 4.74 M/mm3 (4.20-5.40); White Blood Count 6.2 K/mm3 (4.8-10.8)
[2022-10-14 16:35] LABS: Appearance,Urine CLEAR (Clear); Bilirubin,Urine Negative (Negative); Blood, Urine Negative (Negative); Color,Urine STRAW (Yellow); Glucose,Urine (UA) 1+ (Negative); Ketones,Urine Negative (Negative); Leukocyte Esterase,Urine TRACE (Negative); Nitrate,Urine Negative (Negative); Protein,Urine Negative (Negative); Specific Gravity, Urine <= 1.005 (1.005-1.030); Urobilinogen,Urine 0.2 EU/dl (0.2)
--- NOTE | 2022-10-14 16:36 | PC.NURSE ---
no episodes noted with pacemaker.
[2022-10-14 16:45] LABS: Alanine Aminotransferase 20 U/L (12-78); Albumin Level 4.2 g/dl (3.5-5.0); Albumin/Globulin Ratio 1.3 (1.1-1.8); Alkaline Phosphatase 81 U/L (38-126); Anion Gap 9.6 mEq/L (5-15); Aspartate Amino Transferase 41 U/L (14-36); Bilirubin,Total 0.5 mg/dl (0.2-1.3); Blood Urea Nitrogen 9 mg/dl (7-17); Calcium 8.7 mg/dl (8.4-10.2); Carbon Dioxide 25 mmol/L (22.0-30.0); Chloride 107 mmol/L (98-107); Creatinine Clearance Estimated 49 mL/min (50-200); Estimated Glomerular Filt Rate 82 ml/min (>60); GFR (African American) 99 ML/MIN (>60); Globulin 3.3 g/dL (1.3-3.2); Potassium 3.6 mmoL/L (3.5-5.1); Sodium 138 mmol/L (136-145); Total Protein,Serum 7.5 g/dl (6.3-8.2)
[2022-10-14 16:47] LABS: Glucose 42 mg/dl (74-100)
--- NOTE | 2022-10-14 16:50 | PC.NURSE ---
critical glucose of 42, MD aware. PT given OJ, MONIE and mireya, A&Ox4
[2022-10-14 16:54] LABS: Squamous Epithelial Cell,Urine Occasional #/hpf (0-5); WBC,Urine Occasional #/hpf (0-3)
[2022-10-14 16:59] LABS: Troponin I < 0.01 ng/ml (0.00-0.034)
--- NOTE | 2022-10-14 17:40 | PC.NURSE ---
glucose 124, MD aware, pt up to bathroom, tolerated well, states she feels better and asking to go home.
[2022-10-14 17:45] LABS: POC Glucose,Bedside 124 (70-110)
[2022-10-14 19:49] LABS: Troponin I < 0.01 ng/ml (0.00-0.034)
== END 2022-10-14 19:58 | disposition home or self-care (01) ==
PROVIDERS: Emergency Provider Emergency Medicine; PCP Family Medicine
DX: R42 Dizziness and giddiness (principal); R55 Syncope and collapse; R06.02 Shortness of breath; E16.2 Hypoglycemia, unspecified; I48.91 Unspecified atrial fibrillation; Z95.0 Presence of cardiac pacemaker
CPT/HCPCS: 80053; 81001; 82962; 84484; 85025; 93005; 96361; 96374; 99285; J2405

== ENCOUNTER 2023-07-30 11:28 | Outpatient (CLI) | payer MEDICARE, BC, SELFPAY ==
--- NOTE | 2023-07-30 11:35 | XR_ITS ---
FINAL REPORT CLINICAL HISTORY: ACUTE BRONCHITIS COMPARISON: 05/02/2022 FINDINGS: 2 views of the chest were obtained . The heart is mildly enlarged. Pacemaker is in place. The mediastinum is within normal limits. The lungs are underinflated but clear. There is no pneumothorax. Osseous structures are unremarkable. IMPRESSION: No acute cardiopulmonary process. Reviewed, Interpreted and Dictated by Richie Randall MD Transcribed by Echo Billingsley Authenticated and . [facility]
== END 2023-07-30 23:59 | disposition home or self-care (01) ==
LOC: LAB 11:30
PROVIDERS: PCP Family Medicine; Visit Provider Physician Assistant
DX: J20.9 Acute bronchitis, unspecified (principal)
CPT/HCPCS: 71046

== ENCOUNTER 2023-12-14 14:21 | Outpatient (CLI) | payer MEDICARE, BC, SELFPAY ==
--- NOTE | 2023-12-14 14:26 | XR_ITS ---
FINAL REPORT CLINICAL HISTORY: Pain COMPARISON: None FINDINGS: LUMBOSACRAL SPINE SERIES Five views of the lumbosacral spine were obtained. There is no fracture present. There is no malalignment. There are moderate to severe degenerative changes. There is rightward curvature of the lumbar spine. Vascular calcifications are identified. IMPRESSION: Degenerative changes without acute bony abnormality. Reviewed, Interpreted and Dictated by Alfredo Sandra III, MD Transcribed by Tish Flores Authenticated and [facility]
--- NOTE | 2023-12-14 14:26 | XR_ITS ---
FINAL REPORT CLINICAL HISTORY: Left hip pain COMPARISON: None FINDINGS: LEFT HIP: Two views of the left hip with an AP pelvis view demonstrate no acute fracture or dislocation. There are mild degenerative changes. The visualized bony structures are well aligned. Vascular calcifications are identified. IMPRESSION: Degenerative changes without acute bony abnormality. Reviewed, Interpreted and Dictated by Alfredo Sandra III, MD Transcribed by Tish Flores Authenticated and [facility]
== END 2023-12-14 23:59 | disposition home or self-care (01) ==
LOC: RAD 14:22
PROVIDERS: PCP Family Medicine; Visit Provider Family Medicine
DX: M25.552 Pain in left hip (principal)
CPT/HCPCS: 72110; 73502

== ENCOUNTER 2023-12-30 18:37 | Emergency (ER) | payer MEDICARE, BC, SELFPAY ==
--- NOTE | 2023-12-30 18:34 | XR_ITS ---
PROCEDURE INFORMATION: Exam: XR Left Knee Exam date and time: 12/30/2023 9:31 PM Age: 73 years old Clinical indication: Pain; Knee; Left; Additional info: Fall, L knee pain TECHNIQUE: Imaging protocol: Radiologic exam of the left knee. Views: 3 views. COMPARISON: CR XR KNEE LT 3V 09/18/2020 1:11 PM FINDINGS: Bones/joints: Osseous alignment is normal. No acute fracture. Mild tricompartmental joint space narrowing and osteophyte formation. No significant joint fluid. Soft tissues: Normal. IMPRESSION: Mild osteoarthritis. No acute abnormality
--- NOTE | 2023-12-30 18:34 | XR_ITS ---
PROCEDURE INFORMATION: Exam: XR Left Elbow Exam date and time: 12/30/2023 9:31 PM Age: 73 years old Clinical indication: Pain; Elbow; Left; Additional info: Fall, L elbow pain TECHNIQUE: Imaging protocol: Radiologic exam of the left elbow. Views: 3 or more views. COMPARISON: CR XR FOREARM LT 2V 12/30/2023 9:31 PM FINDINGS: Bones/joints: Osseous alignment is normal. No acute fracture. No significant arthritic change or joint fluid. Soft tissues: Normal. IMPRESSION: Negative left elbow
--- NOTE | 2023-12-30 18:34 | XR_ITS ---
PROCEDURE INFORMATION: Exam: XR Left Femur Exam date and time: 12/30/2023 9:31 PM Age: 73 years old Clinical indication: Pain; Thigh; Left; Additional info: Fall, left hip pain TECHNIQUE: Imaging protocol: Radiologic exam of the left femur. Views: 2 views. COMPARISON: CR XR FEMUR LT 2V 12/30/2023 9:31 PM FINDINGS: Bones/joints: Osseous alignment is normal. No acute fracture. Mild degenerative changes in the left knee. Soft tissues: Unremarkable. IMPRESSION: No acute abnormality
--- NOTE | 2023-12-30 18:34 | CT_ITS ---
PROCEDURE INFORMATION: Exam: CT Head Without Contrast Exam date and time: 12/30/2023 9:19 PM Age: 73 years old Clinical indication: Injury or trauma; Fall; Other: Pain; Additional info: Fall, head trauma, on eliquis TECHNIQUE: Imaging protocol: Computed tomography of the head without contrast. Total images: 560 Radiation optimization: All CT scans at this facility use at least one of these dose optimization techniques: automated exposure control; mA and/or kV adjustment per patient size (includes targeted exams where dose is matched to clinical indication); or iterative reconstruction. COMPARISON: CT ANGIO HEAD 10/16/2020 2:15 PM FINDINGS: Brain: No acute intracranial hemorrhage, midline shift, or mass. Mild cortical atrophy. Remote right cerebellar lacunar infarct. Mild periventricular and scattered subcortical white matter hypodensity compatible with remote small vessel ischemic change. The adamson-white interface and basilar cisterns are preserved. Cerebral ventricles: No ventriculomegaly. Paranasal sinuses: Minor scattered mucosal thickening of the paranasal sinuses. Mastoid air cells: Visualized mastoid air cells are well aerated. Auditory system: Metallic artifact from bilateral ear piercing. Orbital cavities: Status post bilateral orbital lens replacement. Bones: Osteopenia. No skull fracture. Soft tissues: Unremarkable. Vasculature: Severe calcifications bilateral intracranial internal carotid arteries. IMPRESSION: 1. No acute intracranial process. 2. Chronic findings.
--- NOTE | 2023-12-30 18:34 | XR_ITS ---
PROCEDURE INFORMATION: Exam: XR Left Hip Exam date and time: 12/30/2023 9:31 PM Age: 73 years old Clinical indication: Injury or trauma; Fall; Other: Pain; Additional info: Fall, L hip pain TECHNIQUE: Imaging protocol: Radiologic exam of the left hip. Views: 2 or 3 views hip with pelvis when performed. COMPARISON: CR XR HIP LT 2-3V W/PELVIS 12/30/2023 9:31 PM FINDINGS: Bones/joints: Degenerative changes noted in the lumbosacral spine and bony pelvis. No acute fracture. No significant arthritic change in the left hip joint. Soft tissues: Unremarkable. Organs: Residual contrast noted in the urinary tract. IMPRESSION: No acute fracture
--- NOTE | 2023-12-30 18:34 | CT_ITS ---
PROCEDURE INFORMATION: Exam: CT Cervical Spine Without Contrast Exam date and time: 12/30/2023 9:21 PM Age: 73 years old Clinical indication: Injury or trauma; Fall; Other: Pain; Additional info: Fall, head trauma, on eliquis TECHNIQUE: Imaging protocol: Computed tomography of the cervical spine without contrast. Total images: 278 Radiation optimization: All CT scans at this facility use at least one of these dose optimization techniques: automated exposure control; mA and/or kV adjustment per patient size (includes targeted exams where dose is matched to clinical indication); or iterative reconstruction. COMPARISON: CT CERVICAL SPINE WO CON 11/04/2019 12:30 PM FINDINGS: Tubes, catheters and devices: Status post left subclavian cardiac pacemaker. Bones: Straightened lordosis with minor dextrocurvature. Osteopenia. Vertebral body height and alignment is maintained. The base of the dens and the C1 and C2 articulations are preserved with moderate degenerative arthropathy. The cervicooccipital junction is intact. Fusion of the bilateral C2-C3 facet joints. Moderate to severe degenerate facet joint spondylosis throughout the cervical spine. Posterior elements are intact. Moderate degenerative disc disease C5-C6 and C6-C7 with posterior projecting disc osteophyte complex resulting in mild acquired spinal canal stenosis and bilateral neural foraminal encroachment. Mild degenerate disc disease remainder of the cervical levels. Minimal anterolisthesis C4-C5 and C7-T1 is most likely degenerative. No critical spinal canal stenosis. Multilevel neural foraminal encroachments, greater on the left. Prevertebral and retropharyngeal spaces: No prevertebral soft tissue swelling. Lungs: Lung apices are clear. Vasculature: Mild calcifications bilateral carotid arteries. Soft tissues: Unremarkable soft tissues of the neck. IMPRESSION: 1. No acute cervical fracture or traumatic subluxation. 2. Straightened lordosis with minor dextrocurvature from position or muscle spasm. 3. Moderate degenerative disc disease C5-C6 and C6-C7. 4. Moderate to severe multilevel degenerate facet joint spondylosis.
--- NOTE | 2023-12-30 18:34 | XR_ITS ---
PROCEDURE INFORMATION: Exam: XR Left Forearm Exam date and time: 12/30/2023 9:31 PM Age: 73 years old Clinical indication: Pain; Lower or forearm; Left; Additional info: Fall, left distal forearm pain TECHNIQUE: Imaging protocol: Radiologic exam of the left forearm. Views: 2 views. COMPARISON: CR XR ELBOW LT MIN 3V 12/30/2023 9:31 PM FINDINGS: Bones/joints: Mildly impacted fracture of the distal radius without significant angulation or displacement of fragments. No definite intra-articular extension. No other acute fracture. Degenerative changes noted in the left wrist. Soft tissues: Normal. IMPRESSION: Nondisplaced distal radius fracture
--- NOTE | 2023-12-30 18:34 | CT_ITS ---
PROCEDURE INFORMATION: Exam: CT Pelvis Without Contrast, Skeleton Exam date and time: 12/30/2023 9:29 PM Age: 73 years old Clinical indication: Injury or trauma; Fall; Other: Pain; Additional info: Fall, L hip pain TECHNIQUE: Imaging protocol: Computed tomography of the pelvis without contrast. Exam focused on the skeleton. Radiation optimization: All CT scans at this facility use at least one of these dose optimization techniques: automated exposure control; mA and/or kV adjustment per patient size (includes targeted exams where dose is matched to clinical indication); or iterative reconstruction. COMPARISON: CT ABDOMEN PELVIS WO CON 10/29/2019 10:38 AM FINDINGS: Bones/joints: Moderate degenerative changes in the lumbosacral spine, left sacroiliac joint and pubic symphysis. No acute fracture. Moderate volume fluid in the left hip joint. Soft tissues: Unremarkable. IMPRESSION: No acute fracture. Chronic osseous changes as noted. Joint effusion noted in the left hip.
--- NOTE | 2023-12-30 18:35 | CT_ITS ---
PROCEDURE INFORMATION: Exam: CT Lumbar Spine Without Contrast Exam date and time: 12/30/2023 9:27 PM Age: 73 years old Clinical indication: Injury or trauma; Fall; Other: Pain; Additional info: Fall, blunt trauma, cp to back between shoulders TECHNIQUE: Imaging protocol: Computed tomography of the lumbar spine without contrast. Radiation optimization: All CT scans at this facility use at least one of these dose optimization techniques: automated exposure control; mA and/or kV adjustment per patient size (includes targeted exams where dose is matched to clinical indication); or iterative reconstruction. COMPARISON: CR XR LUMBAR SPINE MIN 4V 12/14/2023 2:47 PM FINDINGS: Bones/joints: Moderate dextroscoliosis of the lumbar spine. Severe degenerative disc changes at L1-L2 and L2-L3 with more moderate degenerative changes of the other lumbar disc levels. Severe facet arthropathy in the lower lumbar spine with grade 1 anterolisthesis of L5. Mild retrolisthesis of L3. No vertebral body compression or acute fracture. Moderate degenerative changes in the left sacroiliac joint. Soft tissues: Unremarkable. IMPRESSION: No acute abnormality. Chronic findings as noted.
--- NOTE | 2023-12-30 18:35 | CT_ITS ---
PROCEDURE INFORMATION: Exam: CTA Chest With Contrast Exam date and time: 12/30/2023 9:34 PM Age: 73 years old Clinical indication: Injury or trauma; Fall; Additional info: Fall, blunt trauma, cp to back between shoulders TECHNIQUE: Imaging protocol: Computed tomographic angiography of the chest with contrast. Exam focused on the arteries. 3D rendering (Not supervised by radiologist): MIP and/or 3D reconstructed images were created by the technologist. Radiation optimization: All CT scans at this facility use at least one of these dose optimization techniques: automated exposure control; mA and/or kV adjustment per patient size (includes targeted exams where dose is matched to clinical indication); or iterative reconstruction. Contrast material: ISOVUE; Contrast volume: 80 ml; Contrast route: INTRAVENOUS (IV); COMPARISON: CR XR CHEST 2V 07/30/2023 11:42 AM FINDINGS: Tubes, catheters and devices: Cardiac pacemaker in place. Pulmonary arteries: Normal. No pulmonary emboli. Aorta: Unremarkable. No aortic aneurysm. No aortic dissection. Lungs: Unremarkable. No consolidation. No masses. Pleural spaces: Unremarkable. No pneumothorax. No pleural effusion. Heart: Unremarkable. No cardiomegaly. No pericardial effusion. Lymph nodes: Unremarkable. No enlarged lymph nodes. Bones/joints: Moderate degenerative changes throughout the spine. No vertebral body compression or acute fracture. Soft tissues: Unremarkable. IMPRESSION: No aortic pathology or acute abnormality evident in the chest.
--- NOTE | 2023-12-30 18:35 | CT_ITS ---
PROCEDURE INFORMATION: Exam: CT Thoracic Spine Without Contrast Exam date and time: 12/30/2023 9:23 PM Age: 73 years old Clinical indication: Injury or trauma; Fall; Other: Pain; Additional info: Fall, blunt trauma, cp to back between shoulders TECHNIQUE: Imaging protocol: Computed tomography of the thoracic spine without contrast. Radiation optimization: All CT scans at this facility use at least one of these dose optimization techniques: automated exposure control; mA and/or kV adjustment per patient size (includes targeted exams where dose is matched to clinical indication); or iterative reconstruction. COMPARISON: CT CERVICAL SPINE WO CON 12/30/2023 9:21 PM FINDINGS: Bones/joints: Minimal thoracic scoliosis. Moderate multilevel degenerative disc changes throughout the lower thoracic spine. No vertebral body compression or acute fracture. Soft tissues: Unremarkable. IMPRESSION: No acute abnormality
--- NOTE | 2023-12-30 18:35 | CT_ITS ---
PROCEDURE INFORMATION: Exam: CTA Abdomen and Pelvis With Contrast Exam date and time: 12/30/2023 9:34 PM Age: 73 years old Clinical indication: Injury or trauma; Fall; Additional info: Fall, blunt trauma, cp to back between shoulders TECHNIQUE: Imaging protocol: Computed tomographic angiography of the abdomen and pelvis with contrast. Exam focused on the arteries. 3D rendering (Not supervised by radiologist): MIP and/or 3D reconstructed images were created by the technologist. Radiation optimization: All CT scans at this facility use at least one of these dose optimization techniques: automated exposure control; mA and/or kV adjustment per patient size (includes targeted exams where dose is matched to clinical indication); or iterative reconstruction. Contrast material: ISOVUE; Contrast volume: 80 ml; Contrast route: INTRAVENOUS (IV); COMPARISON: CT BONY PELVIS 12/30/2023 9:29 PM FINDINGS: Aorta: No aortic aneurysm. No aortic dissection. Celiac trunk and mesenteric arteries: No occlusion or significant stenosis. Renal arteries: No occlusion or significant stenosis. Right iliac arteries: No occlusion or significant stenosis. Left iliac arteries: No occlusion or significant stenosis. Liver: No mass. Gallbladder and biliary ducts: Gallbladder is distended but otherwise unremarkable. Pancreas: Unremarkable. No mass. No ductal dilation. Spleen: Unremarkable. No splenomegaly. Adrenal glands: Unremarkable. No mass. Kidneys and ureters: Unremarkable. No solid mass. No hydronephrosis. Stomach and bowel: Unremarkable. No obstruction. No mucosal thickening. Appendix: No evidence of appendicitis. Intraperitoneal space: Unremarkable. No free air. No significant fluid collection. Lymph nodes: Unremarkable. No enlarged lymph nodes. Urinary bladder: Unremarkable. No mass. Reproductive: Uterus is surgically absent. No adnexal abnormality. Bones/joints: Moderate degenerative changes throughout the lower spine. Moderate lumbar scoliosis. Grade 1 anterolisthesis of L5. No vertebral body compression or acute fracture. Soft tissues: Unremarkable. IMPRESSION: No significant aortic pathology. No acute abnormality. Chronic findings as noted.
[2023-12-30 18:37] VITALS: BP 140/68; PULSE 72; RESP 20; TEMP 36.8; O2SAT 93; BMI 26.8
--- NOTE | 2023-12-30 18:38 | ECG_ITS ---
APPROVED REPORT Exam: Resting ECG HR:74 bpm ECG Measurements Heart Rate 74 AXES WV 167 P 187 QRSd 175 QRS -89 QT 424 T 82 QTc 451 Conclusion ELECTRONIC ATRIAL PACEMAKER ELECTRONIC VENTRICULAR PACEMAKER ABNORMAL RHYTHM ECG No STEMI Electronically signed by : ZOILA SHELBY, 12/31/2023 07:15:51
[2023-12-30 18:40] VITALS: BP 140/68; RESP 13
[2023-12-30 18:48] LABS: Albumin Level 3.5 g/dl (3.5-5.0); Chloride 107 mmol/L (98-107); Sodium 137 mmol/L (136-145)
[2023-12-30 18:51] LABS: Alanine Aminotransferase 15 U/L (12-78); Albumin/Globulin Ratio 1.3 (1.1-1.8); Alkaline Phosphatase 122 U/L (38-126); Aspartate Amino Transferase 29 U/L (14-36); Basophils # 0.1 K/mm3 (0-0.2); Basophils % 0.7 % (0.1-2.0); Bilirubin,Total 0.5 mg/dl (0.2-1.3); Blood Urea Nitrogen 8 mg/dl (7-17); Calcium 8.5 mg/dl (8.4-10.2); Carbon Dioxide 21 mmol/L (22.0-30.0); Eosinophils # 0.1 K/mm3 (0.0-0.4); Eosinophils % 1.9 % (0.1-12.0); Estimated Glomerular Filt Rate 97 ml/min (>60); GFR (African American) 118 ML/MIN (>60); Globulin 2.6 g/dL (1.3-3.2); Glucose 101 mg/dl (74-100); Hemoglobin 11.9 g/dL (12.2-16.2); Lymphocytes # 2.3 K/mm3 (0.7-4.5); Lymphocytes % 33.2 % (10-50); Mean Corpuscular HGB Conc 33.1 g/dL (31.8-35.4); Mean Corpuscular Hemoglobin 30.1 pg (27.0-31.2); Monocytes # 0.3 K/mm3 (0.1-1.0); Neutrophils # 4.1 K/mm3 (1.8-7.8); Neutrophils % 59.2 % (37.0-80.0); Platelet Count 214 K/mm3 (142-424); Red Blood Count 3.95 M/mm3 (4.20-5.40); Red Cell Distribution Width 15.1 % (11.5-17.5); Total Protein,Serum 6.1 g/dl (6.3-8.2); White Blood Count 6.9 K/mm3 (4.8-10.8)
[2023-12-30 18:57] LABS: Activated Partial Thrombo Time 26.8 seconds (22.8-30.6); INR 0.91 (0.9-1.1); Prothrombin Time 10.3 seconds (10.1-12.5)
--- NOTE | 2023-12-30 18:59 | [facility].EDGENADL ---
Discharge Plan Disposition Patient Disposition: Home, Self-Care Chief Complaint: Fall Prescriptions Prescriptions: No Action Eliquis 5 mg tablet 5 mg PO BID midodrine 5 MG tablet 5 mg PO BID omeprazole 40 MG capsule,delayed release(DR/EC) 40 mg PO DAILY Rx Instructions: TAKE 30 MIN BEFORE BREAKFAST cyanocobalamin (vitamin B-12) 1,000 MCG/ML solution 1,000 mcg IM MONTHLY hydrocodone-acetaminophen 1 TAB tablet 1 - 2 tab PO Q6HP PRN (Reason: Moderate Pain) Qty: 21 0RF atorvastatin 40 MG tablet 40 mg PO HS levetiracetam 500 MG tablet 500 mg PO BID venlafaxine 37.5 MG tablet 37.5 mg PO DAILY gabapentin 300 MG capsule 900 mg PO HS montelukast 10 MG tablet 10 mg PO HS ranolazine 500 MG tablet extended release 12 hr 1,000 mg PO BID dronedarone 400 MG tablet 400 mg PO BID raloxifene 60 MG tablet 60 mg PO HS cholecalciferol (vitamin D3) 125 MCG capsule 125 mcg PO DAILY Referrals Follow up/Referrals: Charles Barrett MD [Primary Care Provider] - See instructions Dominic Vincent DO [Staff Physician] - See instructions Activity Restrictions/Add. Instructions Additional Instructions/Restrictions: Call your family doctor to establish care for this visit to the emergency department and schedule follow-up within 48 hours to ensure improvement. If you have any worsening of your condition or any other concerning signs or symptoms, return to the emergency department or your primary care doctor for further evaluation. Called Dr. Vincent to follow-up about wrist fracture and left hip Clinical Impressions Clinical Impression: Closed fracture distal radius and ulna, Fall Print Language Print Language: Tristanian Discharge ED Provider: Darrel Palacios General Adult HPI <GINETTE Adler - Last Filed: 12/30/23 18:59> General Chief complaint: Fall Stated complaint: Fall Time Seen by Provider: 12/30/23 18:42 Mode of Arrival: EMS Source of Information: Patient and EMS Limitations: No Limitations Description of Symptoms (Recalled from ER Triage Doc. by RN): pt fell out of motor home, pt thinks she just missed the stepped and tumbled landing on left side of body, pt complains of left wrist pain, skin tear on left elbow, left hip pain. pt landed on concrete surface and is on eliquis Related Data Home Medications ?Medication ?Instructions ?Recorded ?Confirmed atorvastatin 40 mg tablet 40 mg PO HS Cholesterol 10/28/19 08/27/21 cholecalciferol (vitamin D3) 125 125 mcg PO DAILY Supplement 10/28/19 08/27/21 mcg (5,000 unit) capsule dronedarone 400 mg tablet 400 mg PO BID aFIB 10/28/19 08/27/21 gabapentin 300 mg capsule 900 mg PO HS pain 10/28/19 08/27/21 levetiracetam 500 mg tablet 500 mg PO BID seizure 10/28/19 08/27/21 montelukast 10 mg tablet 10 mg PO HS Allergy symptoms 10/28/19 08/27/21 raloxifene 60 mg tablet 60 mg PO HS unknown 10/28/19 08/27/21 ranolazine 500 mg tablet,extended 1,000 mg PO BID unknown 10/28/19 08/27/21 release,12 hr venlafaxine 37.5 mg tablet 37.5 mg PO DAILY Depression 10/28/19 08/27/21 midodrine 5 mg tablet 5 mg PO BID . 10/15/20 08/27/21 omeprazole 40 mg capsule,delayed 40 mg PO DAILY GERD 10/15/20 08/27/21 release cyanocobalamin (vitamin B-12) 1,000 mcg IM MONTHLY Supplement 10/16/20 08/27/21 1,000 mcg/mL injection solution apixaban 5 mg tablet (Eliquis) 5 mg PO BID HEART HEALTHY 08/06/21 08/27/21 Previous Rx's ?Medication ?Instructions ?Recorded hydrocodone 5 mg-acetaminophen 325 1 - 2 tab PO Q6HP PRN Moderate 08/12/21 mg tablet Pain #21 tabs Allergies Allergy/AdvReac Type Severity Reaction Status Date / Time codeine [CODEINE] Allergy Intermediate I-RASH Verified 08/27/21 13:45 hydromorphone [From DILAUDID] Allergy Unknown I-HIVES Verified 08/27/21 13:45 <Darrel Palaciso MD - Last Filed: 12/30/23 23:20> History of Present Illness HPI narrative: Please note that above description of symptoms, in this electronic medical record under categorization of recalled from ER triage doctor by RN are reflective of an initial nursing assessment, however, is not reflective of my full history and physical exam that was personally taken and clarified. Consequentially, this preceding description of symptoms, which may include the patient's categorized chief complaint in the EMR, do not reflect my personal clinical impression, and the ultimate description of history of present illness and patient stated complaints should be deferred to this section of the note. Unless stated otherwise or congruent with this section of the note, additional signs, symptoms, or incongruence should be interpreted as inaccurate with my clinical impression. [facility] <GINETTE Adler - Last Filed: 12/30/23 18:59> [facility] Disclaimer: The information contained in this section may have been updated after the patient was seen, as this information can be updated by other users. Social History Smoking Status: Never smoker alcohol intake: never substance use type: denies use current occupational status: retired Travel in the last 8 weeks: None household members: spouse housing: house current occupational exposures/hazards: No caffeine: Yes Other Medical History Have you received the Flu Vaccine for this season: Yes Have you received the Pneumonia Vaccine: Yes <GNIETTE Adler - Last Filed: 12/30/23 18:59> ROS Obtained: Yes Systems reviewed as appropriate & no additional complaints except as documented Physical Exam <GINETTE Adler - Last Filed: 12/30/23 18:59> General General appearance: alert and in no apparent distress Head Head exam: atraumatic and normal inspection Eye Eye exam: Present normal appearance, PERRL and EOMI ENT ENT exam: Present normal exam, normal oropharynx and mucous membranes moist Neck Neck exam: Present normal inspection, full ROM and trachea midline; Absent lymphadenopathy Chest Chest inspection: Present normal inspection and symmetric chest wall rise Respiratory Respiratory exam: Present normal lung sounds bilaterally; Absent accessory muscle use Cardiovascular Cardiovascular exam: Present regular rate, normal rhythm, normal heart sounds, +S1 and +S2 Abdominal Exam Abdominal exam: Present soft and normal bowel sounds; Absent tenderness, guarding or rebound Extremities Exam Extremities exam: Present normal inspection and full ROM Neurological Exam Neurological exam: Present alert, oriented X3 and CN II-XII intact Psychiatric Psychiatric exam: Present normal affect and normal mood Skin Skin exam: Present warm, dry and normal color Lymphatic Lymphatic Findings: no adenopathy <Darrel Palacios MD - Last Filed: 10/23/24 23:20> Head Head exam: normocephalic Neck Neck exam: Present other (Cervical collar in place, no discernible tenderness) Chest Chest inspection: Absent tenderness Abdominal Exam Abdominal exam: Absent distention Extremities Exam Extremities exam: Present other (Per MDM) Back Exam Back exam: Present tenderness Neurological Exam Neurological exam: Absent motor sensory deficit Skin Skin exam: Present intact (Superficial abrasion left elbow) Medical Decision Making <GINETTE Adler - Last Filed: 12/30/23 18:59> Medical Records Screening: Per USPSTF and CDC recommendations, given the prevalence of disease in our region, it is our hospital?s policy to screen for HIV and viral Hepatitis for all patients aged 18 and over and those with ongoing risk factors. Vital Signs: 12/30/23 18:37 12/30/23 18:40 12/30/23 19:00 Temperature 98.3 F Temperature Source Oral Pulse Rate 71 Pulse Rate [Right Radial] 72 Respiratory Rate 20 13 12 Blood Pressure 140/68 120/62 Blood Pressure [Right Arm] 140/68 Blood Pressure Mean [Right Arm] 92 02 Sat by Pulse Oximetry 93 L 95 Oxygen Delivery Method Room Air Lab Data Lab Results 12/30/23 18:25: WBC 6.9, RBC 3.95 L, Hgb 11.9 L, Hct 36.0 L, MCV 91.0, MCH 30.1, MCHC 33.1, RDW 15.1, Plt Count 214, MPV 8.0, Neut % (Auto) 59.2, Lymph % (Auto) 33.2, Campbell % (Auto) 5.0, Eos % (Auto) 1.9, Baso % (Auto) 0.7, Neut # (Auto) 4.1, Lymph # (Auto) 2.3, Campbell # (Auto) 0.3, Eos # (Auto) 0.1, Baso # (Auto) 0.1, PT 10.3, INR 0.91, APTT 26.8, Sodium 137, Potassium 4.0, Chloride 107, Carbon Dioxide 21 L, Anion Gap 13.0, BUN 8, Creatinine 0.60, Estimated GFR 97, Est GFR ( Amer) 118, Glucose 101 H, Calcium 8.5, Total Bilirubin 0.5, AST 29, ALT 15, Alkaline Phosphatase 122, Total Protein 6.1 L, Albumin 3.5, Globulin 2.6, Albumin/Globulin Ratio 1.3 12/30/23 18:25 12/30/23 18:25 Orders (Tests/Meds): ED MEDICATIONS Discontinued Medications Generic Name Dose Route Start Last Admin Trade Name Maxine PRN Reason Stop Dose Admin Iopamidol 80 ml 12/30/23 21:52 12/30/23 21:53 Iopamidol-370 (76%);100ml Bottle IV 12/30/23 21:53 80 ml ONCE ONE Administration Ketorolac Tromethamine 15 mg 12/30/23 18:38 12/30/23 19:04 Ketorolac 30mg/Ml Vial IV 12/30/23 18:39 15 mg ONCE ONE Administration Morphine Sulfate 4 mg 12/30/23 18:38 12/30/23 19:04 Morphine 4mg/Ml Syringe IV 12/30/23 18:39 4 mg ONCE ONE Administration Sodium Chloride 50 ml 12/30/23 21:52 12/30/23 21:53 0.9 % Sodium Chloride 50 Ml Vial IV 12/30/23 21:53 50 ml ONCE ONE Administration Sodium Chloride 10 ml 12/30/23 21:52 12/30/23 21:53 Sodium Chloride 0.9% 10ml Syr (Rad Only) IV 12/30/23 21:53 10 ml ONCE ONE Administration ORDERS Category Date Time Status CT angio abdomen pelvis Stat Cat Scan 12/30/23 18:[address] bony pelvis Stat Cat Scan 12/30/23 18:[address] cervical spine wo con Stat Cat Scan 12/30/23 18:[address] head/brain wo con Stat Cat Scan 12/30/23 18:[address] lumbar spine wo con Stat Cat Scan 12/30/23 18:[address] thoracic spine wo con Stat Cat Scan 12/30/23 18:35 Completed CTA Chest [CT angio chest - dissection] Stat Cat Scan 12/30/23 18:35 Completed Elbow XR left mininum 3 views [XR elbow LT min 3V] Stat Exams 12/30/23 18:34 Completed Femur XR left 2 views [XR femur LT 2V] Stat Exams 12/30/23 18:34 Completed Forearm XR left 2 views [XR forearm LT 2V] Stat Exams 12/30/23 18:34 Completed Hip XR left minimum 2 views [XR hip LT 2-3V w/pelvis] Exams 12/30/23 18:34 Completed Stat Knee XR left 3 views [XR knee LT 3V] Stat Exams 12/30/23 18:34 Completed Complete Blood Count Auto Diff Stat Lab 12/30/23 18:25 Completed Comprehensive Metabolic Panel Stat Lab 12/30/23 18:25 Completed PT INR [Prothrombin Time INR] Stat Lab 12/30/23 18:25 Completed PTT [Activated Partial Thrombo Time] Stat Lab 12/30/23 18:25 Completed Medical Decision Narrative: In summary patient is a [age, sex] who presents to the emergency department for evaluation of [complaint]. Patient is [hemodynamically stable/unstable] upon arrival, [febrile/afebrile]. [Unremarkable physical exam, nonfocal exam versus focal remarkable exam]. Differential diagnosis includes [DDx]. Initial workup will be conducted with [hematologic labs, imaging, respiratory swab, describe workup]. Initial interventions include [crystalloid bolus, medications, p.o. challenge, etc.] initial workup reviewed by me [hematologic labs are remarkable for... Imaging remarkable for... Urinalysis remarkable for]. Upon repeat evaluation [patient had acceptable resolution of symptoms, had persistent pain for which additional interventions were conducted (describe interventions), tolerated p.o., was ambulatory, etc.]. Given this [patient is appropriate for discharge at this time and will be discharged with a prescription for... The case was discussed with hospital medicine regarding management and they will admit the patient their service for continued evaluation at this time... Etc.] Places where you can increase complexity: I informally interpreted the patient's chest x-ray or CT read and is remarkable for... Documenting what the monitor tech shows with rate and rhythm Consideration of test but deferring. Ex: I considered chest x-ray on this patient however given that they have no oxygen requirement and are clear to auscultation all lung pathak will be deferred. Social determinants of health: Given that patient is undomiciled increases complexity. Given that patient has polysubstance abuse compounds all aspects of care <Darrel Palacios MD - Last Filed: 12/30/23 23:20> Medical Records Medical records reviewed: Yes I reviewed the patient's medical records. Radhames Inquiry Pt receiving controlled substance: Yes Radhames was queried for this patient: No Reason not queried -: Emergent pt cond-no time Risks and benefits of using a controlled substance: were not discussed with pt by me Vital Signs: 12/30/23 18:37 12/30/23 18:40 12/30/23 19:00 Temperature 98.3 F Temperature Source Oral Pulse Rate 71 Pulse Rate [Right Radial] 72 Respiratory Rate 20 13 12 Blood Pressure 140/68 120/62 Blood Pressure [Right Arm] 140/68 Blood Pressure Mean [Right Arm] 92 02 Sat by Pulse Oximetry 93 L 95 Oxygen Delivery Method Room Air Lab Data Lab results reviewed: Yes I reviewed the patient's lab results. Lab Results 12/30/23 18:25: WBC 6.9, RBC 3.95 L, Hgb 11.9 L, Hct 36.0 L, MCV 91.0, MCH 30.1, MCHC 33.1, RDW 15.1, Plt Count 214, MPV 8.0, Neut % (Auto) 59.2, Lymph % (Auto) 33.2, Campbell % (Auto) 5.0, Eos % (Auto) 1.9, Baso % (Auto) 0.7, Neut # (Auto) 4.1, Lymph # (Auto) 2.3, Campbell # (Auto) 0.3, Eos # (Auto) 0.1, Baso # (Auto) 0.1, PT 10.3, INR 0.91, APTT 26.8, Sodium 137, Potassium 4.0, Chloride 107, Carbon Dioxide 21 L, Anion Gap 13.0, BUN 8, Creatinine 0.60, Estimated GFR 97, Est GFR ( Amer) 118, Glucose 101 H, Calcium 8.5, Total Bilirubin 0.5, AST 29, ALT 15, Alkaline Phosphatase 122, Total Protein 6.1 L, Albumin 3.5, Globulin 2.6, Albumin/Globulin Ratio 1.3 Orders (Tests/Meds): ED MEDICATIONS Discontinued Medications Generic Name Dose Route Start Last Admin Trade Name Freq PRN Reason Stop Dose Admin Iopamidol 80 ml 12/30/23 21:52 12/30/23 21:53 Iopamidol-370 (76%);100ml Bottle IV 12/30/23 21:53 80 ml ONCE ONE Administration Ketorolac Tromethamine 15 mg 12/30/23 18:38 12/30/23 19:04 Ketorolac 30mg/Ml Vial IV 12/30/23 18:39 15 mg ONCE ONE Administration Morphine Sulfate 4 mg 12/30/23 18:38 12/30/23 19:04 Morphine 4mg/Ml Syringe IV 12/30/23 18:39 4 mg ONCE ONE Administration Sodium Chloride 50 ml 12/30/23 21:52 12/30/23 21:53 0.9 % Sodium Chloride 50 Ml Vial IV 12/30/23 21:53 50 ml ONCE ONE Administration Sodium Chloride 10 ml 12/30/23 21:52 12/30/23 21:53 Sodium Chloride 0.9% 10ml Syr (Rad Only) IV 12/30/23 21:53 10 ml ONCE ONE Administration ORDERS Category Date Time Status CT angio abdomen pelvis Stat Cat Scan 12/30/23 18:[address] bony pelvis Stat Cat Scan 12/30/23 18:[address] cervical spine wo con Stat Cat Scan 12/30/23 18:[address] head/brain wo con Stat Cat Scan 12/30/23 18:[address] lumbar spine wo con Stat Cat Scan 12/30/23 18:[address] thoracic spine wo con Stat Cat Scan 12/30/23 18:35 Completed CTA Chest [CT angio chest - dissection] Stat Cat Scan 12/30/23 18:35 Completed Elbow XR left mininum 3 views [XR elbow LT min 3V] Stat Exams 12/30/23 18:34 Completed Femur XR left 2 views [XR femur LT 2V] Stat Exams 12/30/23 18:34 Completed Forearm XR left 2 views [XR forearm LT 2V] Stat Exams 12/30/23 18:34 Completed Hip XR left minimum 2 views [XR hip LT 2-3V w/pelvis] Exams 12/30/23 18:34 Completed Stat Knee XR left 3 views [XR knee LT 3V] Stat Exams 12/30/23 18:34 Completed Complete Blood Count Auto Diff Stat Lab 12/30/23 18:25 Completed Comprehensive Metabolic Panel Stat Lab 12/30/23 18:25 Completed PT INR [Prothrombin Time INR] Stat Lab 12/30/23 18:25 Completed PTT [Activated Partial Thrombo Time] Stat Lab 12/30/23 18:25 Completed Medical Decision Narrative: 73-year-old female history of hypertension, hyperlipidemia, type 2 diabetes, ACS/PR, ischemic cardiomyopathy with pacemaker in place, A-fib on Eliquis presenting with fall. Patient states she was walking out of their mobile home when she lost her footing on the steps, extinction waking up on the ground. Does not think she lost consciousness, thinks that it happened so quick she just does not recall everything. Having pain in her left wrist, left hip, left knee, as well as her back. No numbness, tingling, weakness. Pain is moderate to severe. EMS was called, picked patient up and gave her 50 mcg of fentanyl and Zofran. Patient stating pain is severe in her wrist and hip, does not radiate. History was obtained via conversation with patient and EMS. On arrival, patient hemodynamically stable, alert, oriented x4, appropriate, GCS 15, moving all extremities spontaneously, pupils equal and reactive to light. Full physical exam performed and significant for well-appearing female, no acute distress. She has c-collar on, on backboard. Splint left upper extremity. Tenderness about left hip with lidocaine patch overlying. Chest, abdomen, pelvis nontender. She does have midline spinal tenderness in thoracic and lumbar spines without outward signs of injury or deformity. Ranging lower extremities without issue other than pain in lateral left hip. Pulses equal and symmetric in upper and lower extremities. Differential includes intracranial bleed, critical cervical spine injury, fracture, sprain, strain, intra-abdominal bleed, intrathoracic bleed, blunt aortic injury, spine fracture, among others. Patient placed on continuous cardiac monitoring and continuous pulse ox with initial blood pressure 140/68, heart rate 72, saturation 93% on room air. Independent interpretation of EKG shows AV paced rhythm. 74 beats a minute. Wide QRS 175, [place] 167, QTc 451. Left axis deviation.. Patient was given Toradol, morphine, fluids for symptomatic management and correction of underlying abnormalities. Workup independently interpreted and significant for nonactionable hematologic lab. On independent interpretation of imaging, distal radius and ulna fracture on left upper extremity x-rays. No intracranial bleed, no cervical spine injury, no thoracic or lumbar spine injury on independent interpretation of CTs. No intrathoracic or intra-abdominal injuries. See radiology read for full review of final results. On reevaluation, patient resting comfortably, but having moderate pain. Oxycodone was administered. Patient was splinted left upper extremity. Given patient presentation, workup, history, this most likely represents distal radius and ulna fracture in the setting of fall. Because patient at baseline without signs or symptoms of clinical decompensation, deemed appropriate for discharge. Results were relayed to patient who voiced understanding and were agreeable to outpatient management and follow up. I discussed my clinical impression with patient and answered all questions. At this time, the evidence for any other entities in the differential is insufficient to warrant any further testing or ED observation. This was explained as well. Advisory was given that persistent or worsening symptoms require further evaluation. I confirmed the understanding of this discussion. Project Engineer disclaimer Much of this encounter note is an electronic mat cleaning machine operator spoken language to printed text. Electronic mat cleaning machine operator of the spoken language may permit errors. Although I have reviewed the note, some errors may still exist. Procedures <Darrel Palacios MD - Last Filed: 12/30/23 23:20> Orthopedic Splinting/Casting Injury #1: Side: left Upper Extremity Injury Location: forearm and wrist Upper Extremity Immobilizer: sugar tong splint Post Cast/Splinting Neuro Status: intact and no change Post Cast/Splinting Vasc Status: intact and no change Critical Care <Darrel Palacios MD - Last Filed: 12/30/23 23:20> Critical Care Time Critical Care Time: No
[2023-12-30 19:00] VITALS: BP 120/62; PULSE 71; RESP 12; O2SAT 95
[2023-12-30] MEDS: KETOROLAC 30MG/ML VIAL 15 MG IV (19:04)
[2023-12-30] MEDS: MORPHINE 4MG/ML SYRINGE 4 MG IV (19:04)
[2023-12-30] MEDS: IOPAMIDOL-370 (76%);100ML BOTTLE 80 ML IV (21:53)
[2023-12-30] MEDS: 0.9 % SODIUM CHLORIDE 50 ML VIAL IV (21:53)
[2023-12-30] MEDS: SODIUM CHLORIDE 0.9% 10ML SYR (RAD ONLY) 10 ML IV (21:53)
[2023-12-30] MEDS: OXYCODONE 5MG IMMEDIATE RELEASE TABLET 5 MG PO (23:25)
[2023-12-30 23:44] VITALS: BP 136/79; PULSE 71; RESP 16; TEMP 36.8; O2SAT 97
== END 2023-12-30 23:45 | disposition home or self-care (01) ==
PROVIDERS: Emergency Provider Emergency Medicine; PCP Family Medicine
DX: S52.502A Unspecified fracture of the lower end of left radius, initial encounter for closed fracture (principal); M25.532 Pain in left wrist; M25.552 Pain in left hip; M25.522 Pain in left elbow; W17.89XA Other fall from one level to another, initial encounter; Y93.89 Activity, other specified; Y92.89 Other specified places as the place of occurrence of the external cause
CPT/HCPCS: 70450; 71275; 72125; 72128; 72131; 72192; 73080; 73090; 73502; 73552; 73562; 74174; 80053; 85025; 85610; 85730; 93005; 96374; 96375; 99285; J1885; J2270; Q9967

== ENCOUNTER 2024-01-06 11:16 | Outpatient (CLI) | payer MEDICARE, BC, SELFPAY ==
--- NOTE | 2024-01-06 11:22 | XR_ITS ---
PROCEDURE INFORMATION: Exam: XR Left Wrist Exam date and time: 01/06/2024 11:50 AM Age: 73 years old Clinical indication: Injury or trauma; Other: Pain after fall; Additional info: Left wrist FX TECHNIQUE: Imaging protocol: Radiologic exam of the left wrist. Views: 3 or more views. COMPARISON: CR XR FOREARM LT 2V 01/06/2024 11:50 AM FINDINGS: Bones/joints: There is diffuse osteopenia throughout the bones of the left hand and wrist There is a comminuted, nonangulated fracture through the distal left radial metaphysis. The carpal bones articulate normally with the distal left radial fracture fragment. No carpal bone fracture is identified. 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 Soft tissues: No radiopaque foreign body or gas in the soft tissues. IMPRESSION: Comminuted, nonangulated fracture through the distal left radial metaphysis.
--- NOTE | 2024-01-06 11:22 | XR_ITS ---
PROCEDURE INFORMATION: Exam: XR Left Forearm Exam date and time: 01/06/2024 11:50 AM Age: 73 years old Clinical indication: Injury or trauma; Other: Pain after fall; Additional info: Left fore arm FX TECHNIQUE: Imaging protocol: Radiologic exam of the left forearm. Views: 2 views. COMPARISON: CR XR FOREARM LT 2V 12/30/2023 9:31 PM FINDINGS: Bones/joints: There is a comminuted, nonangulated fracture through the distal left radial metaphysis. No other fractures are identified. There is normal alignment of the left elbow. No visible left elbow effusion or fracture. Soft tissues: Normal. IMPRESSION: Comminuted, nonangulated fracture through the distal left radial metaphysis.
--- NOTE | 2024-01-06 12:14 | CT_ITS ---
PROCEDURE INFORMATION: Exam: CT Left Upper Extremity Without Contrast, Wrist Exam date and time: 01/06/2024 12:23 PM Age: 73 years old Clinical indication: Pain; Wrist; Left TECHNIQUE: Imaging protocol: Computed tomography of the left upper extremity without contrast. Exam focused on the wrist. 3D rendering (Not supervised by radiologist): MIP and/or 3D reconstructed images were created by the technologist. Radiation optimization: All CT scans at this facility use at least one of these dose optimization techniques: automated exposure control; mA and/or kV adjustment per patient size (includes targeted exams where dose is matched to clinical indication); or iterative reconstruction. COMPARISON: CR XR WRIST LT MIN 3V 01/06/2024 11:50 AM FINDINGS: Bones/joints: There is a comminuted fracture through the distal left radial metaphysis. There appears to be a single fracture line which involves the radiocarpal joint space. There is no significant angulation of the distal left radial metaphysis fracture site. No other fractures are identified. The distal left ulna, carpal bones and visualized metacarpals appear intact. There are [id number] chronic degenerative changes of the 1st metacarpal-trapezial joint space. Soft tissues: Normal. IMPRESSION: Comminuted fracture of the distal left radial metaphysis without angulation as above.
--- NOTE | 2024-01-06 12:14 | CT_ITS ---
PROCEDURE INFORMATION: Exam: CT Left Upper Extremity Without Contrast, Forearm Exam date and time: 01/06/2024 12:23 PM Age: 73 years old Clinical indication: Pain; Lower or forearm; Left TECHNIQUE: Imaging protocol: Computed tomography of the left upper extremity without contrast. Exam focused on the forearm. 3D rendering (Not supervised by radiologist): MIP and/or 3D reconstructed images were created by the technologist. Radiation optimization: All CT scans at this facility use at least one of these dose optimization techniques: automated exposure control; mA and/or kV adjustment per patient size (includes targeted exams where dose is matched to clinical indication); or iterative reconstruction. COMPARISON: CT FOREARM LT WO CON 01/06/2024 12:23 PM FINDINGS: Bones/joints: There is a comminuted, nonangulated fracture through the distal left radial metaphysis. There is a fracture line which involves the radiocarpal joint space. The carpal bones are intact. The proximal and mid left radius is intact. The left ulna is intact. Mixed line there is normal anatomic alignment of the left elbow. No visible left elbow fracture. No visible left elbow effusion. Soft tissues: There is mild soft tissue swelling along the dorsum of the left elbow. IMPRESSION: 1. Comminuted, nonangulated fracture of the distal left radial metaphysis. 2. Mild soft tissue swelling along the dorsum of the left elbow. The left elbow is otherwise unremarkable.
--- NOTE | 2024-01-06 12:14 | CT_ITS ---
PROCEDURE INFORMATION: Exam: CT Left Upper Extremity Without Contrast, Elbow Exam date and time: 01/06/2024 12:23 PM Age: 73 years old Clinical indication: Pain; Elbow; Left TECHNIQUE: Imaging protocol: Computed tomography of the left upper extremity without contrast. Exam focused on the elbow. 3D rendering (Not supervised by radiologist): MIP and/or 3D reconstructed images were created by the technologist. Radiation optimization: All CT scans at this facility use at least one of these dose optimization techniques: automated exposure control; mA and/or kV adjustment per patient size (includes targeted exams where dose is matched to clinical indication); or iterative reconstruction. COMPARISON: CT ELBOW LT WO CON 01/06/2024 12:23 PM FINDINGS: Bones/joints: Again noted is a comminuted, nonangulated fracture through the distal left radial metaphysis. A fracture line appears to involve the radiocarpal joint space. No other fractures are identified. There is normal alignment of the left elbow. No evidence of a left elbow fracture. No evidence of a left elbow effusion. Soft tissues: Mild soft tissue swelling along the dorsum of the left forearm and elbow. No radiopaque foreign body or gas in the soft tissues. IMPRESSION: 1. Comminuted, nonangulated fracture through the distal left radial metaphysis. 2. No evidence of a left elbow fracture or effusion. 3. Mild soft tissue swelling along the dorsum of the left forearm and elbow.
== END 2024-01-06 23:59 | disposition home or self-care (01) ==
PROVIDERS: PCP Family Medicine; Visit Provider Orthopaedic Surgery
DX: S52.502A Unspecified fracture of the lower end of left radius, initial encounter for closed fracture (principal); S52.602A Unspecified fracture of lower end of left ulna, initial encounter for closed fracture; W19.XXXA Unspecified fall, initial encounter
CPT/HCPCS: 73090; 73110; 73200

== ENCOUNTER 2024-08-25 12:19 | Outpatient (CLI) | payer MEDICARE, BC, SELFPAY ==
--- OUTSIDE RECORDS SUMMARY | 2023-04-21 04:00 | XMS_ITS ---
Author Organization [facility] [place] Address [address] [place] [address] Care Team Providers Care Corporate Real Estate Manager Name Role Phone Joy PUENTES, Fran Primary Care Provider Unavailabl e Adi Sanabria Unavailable [phone] Adi Sanabria MD Unavailable Unavailable REASON FOR VISIT RTK REV, POLY SWAP, KAITY Encounters Encounter Location Date Provider Diagnosis [facility] [address] [place], [place] [id number] 04/21/2023 Adi Sanabria Plan Of Treatment No Information Progress Notes * Dagmar FLORESDOB: 9 (74 yo F)Acc No.[id number]:04/21/2023 Patient: Dagmar TORRES Provider: Aaron Sanabria Jr., MD :1950 A ge:72 Y S ex:Female Date:04/21/2023 Address:[address] [place] [address] , [address] Pcp:Fran Hamilton MD * Images: * Electronic signature of Adi Sanabria MD on 08/25/2024 at 12:25 PM EDT Sign off status: Pending * Provider: Aaron Sanabria Jr., MD Date: 0 04/21/2023 Generated for Jacobi ng/Faxing/eTransmitting on: 0 08/25/2024 12:25 PM EDT
--- OUTSIDE RECORDS SUMMARY | 2023-05-06 04:30 | XMS_ITS ---
Author Organization [facility] [place] Address [address] [place] [address] [address] [place] [address] Care Team Providers Care Tax Clerk Name Role Phone Joy PUENTES, Fran Primary Care Provider UnavailAdi Bermeo Unavailable [phone] Daniele PUENTES, Adi Unavailable Unavailable Faby Bonilla Unavailable [phone] REASON FOR VISIT RTK REV, POLY SWAP, KAITY Encounters Encounter Location Date Provider Diagnosis [facility] [place] [address] [place] [address] 05/06/2023 Faby Bonilla Plan Of Treatment No Information Progress Notes * Dagmar FLORESDOB: [birth year] (74 yo F)Acc No.[id number]:05/06/2023 Patient: Dagmar TORRES Provider: Scott Bonilla NP :1950 A ge:72 Y S ex:Female Date:05/06/2023 Address:[address] [place] [address] , [address] Pcp:Fran Hamilton MD Subjective: * Chief Complaints: * 1 . RTK REV, POLY SWAP, KAITY. * Medical History: Objective: * Vitals: Assessment: Plan: * Treatment: * Images: * Electronic signature of Jadon Bonilla on 08/25/2024 at 12:25 PM EDT Sign off status: Pending * Provider: Scott Bonilla NP Date: 0 05/06/2023 Generated for Antonio maynard/Akira/Solis on: 0 08/25/2024 12:25 PM EDT
--- OUTSIDE RECORDS SUMMARY | 2023-12-14 09:15 | XMS_ITS ---
[facility] [address] [facility] [address] [place] [id number] Care Team Providers Care Clin Nurse Spec Name Role Phone Arjun Barrett Primary Care Provider Dai Avalos Unavailable [phone] Allergies Allergen (clinical drug ingredient) Drug/Non Drug Allergy documented on EMR Reaction Allergy Type Onset Date Status hydromorphone Dilaudid Unknown Drug Allergy Act lico codeine Codeine Unknown Drug Allergy Active Results Component Value Reference Range Notes X ray : Spine, lumbosacral Reviewed date:12/15/2023 09:09:25 AM Interpretation:degenerative changes Performing Lab: Notes/Report: degenerative changes X ray : Hip, left Reviewed date:12/15/2023 09:09:34 AM Interpretation:degenerative changes Performing Lab: Notes/Report: degenerative changes X ray : Pelvis Reviewed date:12/21/2023 10:54:50 AM Interpretation:see hip x-ray Performing Lab: Notes/Report: see hip x-ray REASON FOR VISIT hip pain Medications Medication SIG (Take, Route, Frequency, Duration) Notes Start Date End Date Status Omeprazole 40 MG TAKE 1 CAPSULE DAILY for 90 days Active levETIRAcetam 500 MG 1 tab(s) orally 2 times a day for 90 days Active Venlafaxine HCl 37.5 MG TAKE 1 TABLET ONCE DAILY for 90 days Active Raloxifene HCl 60 MG TAKE 1 TABLET ONCE DAILY for 90 days Active Montelukast Sodium 10 MG 1 tab(s) orally once a day for 90 days Active Eliquis 5 MG 1 by mouth twice daily for 90 days Active Atorvastatin Calcium 40 MG 1 tab(s) orally once a day for 90 days Active Albuterol Sulfate (2.5 MG/3ML) 0.083% 3 ml Inhalation every 6 hrs, prn Active Zolpidem Tartrate 10 MG 1 tab(s) orally once a day (at bedtime) for 30 day(s) 08/04/2023 Active Nebulizer/Tubing/Mout hpiece - as directed 07/30/2023 Active Carafate 1 GM 1 tab(s) orally 4 times a day (before meals and at bedtime) 07/20/2020 Active traMADol HCl 50 MG 1 tab(s) orally four times a day as needed 07/23/2022 Active Gabapentin 300 MG 1 cap(s) orally twice a day 02/12/2022 Active Ipratropium-Albuterol 3/ 0.5/ 3 ML 3 ML TID *Please review and pick correct strength-formulati on from [employer] options. If intended option is not shown, discontinue and re-order from Quick Search* 07/31/2021 Active NEBULIZER SET UP FOR ADULT DIRECTED *Please review for potential replacement for e-prescription and drug interaction check* 07/31/2021 Active Vitamin D3 50 MCG (2000 UT) 1 tab(s) orally once a day for 90 days Active Albuterol Sulfate 0.83MG/ML (2.5MG/3ML) 1 VIAL DIRECTED Q 4-6 HRS PRN PER NEBULIZER for 90 DAYS *Please review and pick correct strength-formulati on from [employer] options. If intended option is not shown, discontinue and re-order from Quick Search* Active ALBUTEROL HFA INHALER 200 METERED DOSES/ 8.5GM 2 INHALATIONS QID PRN *Please review for potential replacement for e-prescription and drug interaction check* Active Latisse 0.03 % 1 diana applied topically once a day (at bedtime) 07/19/2020 Active Medrol 4 MG as directed orally daily for 6 days 12/14/2023 Active Vitamin B-12 1000 MCG 1 tablet Orally Once a day for 30 day(s) Active Vitamin B-1 250 MG 2 tablet Orally twice a day Active Ranexa Active Trelegy Ellipta 200-62.5-25 MCG/ACT 1 puff Inhalation Once a day Active Lidoderm 5 % 1 patch remove after 12 hours Externally Once a day for 30 days 12/14/2023 Active Vital Signs Blood pressure systolic 116 mm Hg 12/14/19 24 Blood pressure diastolic 60 mm Hg 024 Heart Rate 57 /min 12/14/2023 Height 60 in 12/14/2023 Weight 151.0 lbs 12/14/2023 BMI 29.49 kg/m2 12/14/2023 Encounters Encounter Location Date Provider Diagnosis [facility] [address] [place] [id number] 12/14/2023 Dai Avalos Hip pain M25.559 Assessments Encounter Date Diagnosis (ICD Code) Assessment Notes Treatment Notes Treatment Clinical Notes Section Notes 12/14/2023 Hip pain (ICD-10 - M25.559) continue use of cane/walker as needed; heat/ice application prn; meds with food Plan Of Treatment Medication Medication Name Sig Start Date Stop Date Notes Medrol 4 MG as directed orally daily for 6 days 12/14/2023 Lidoderm 5 % 1 patch remove after 12 hours Externally Once a day for 30 days 12/14/2023 Treatment Notes Assessment Notes Hip pain continue use of cane /walker as needed; heat/ice application prn; meds with food Next Appt Details Follow Up: will notify of te st results, Reason: Progress Notes * Dagmar FLORESaDOB: 1950 (74 yo F)Acc No.[id number]:12/14/2023 Progress Notes Patient: Dagmar TORRES Provider: LIBERTAD Connor :1950 A ge:73 Y S ex:Female Date:12/14/2023 Address:[place], [id number] Pcp:Arjun Barrett Subjective: * Chief Complaints: * 1 . Hip pain. * HPI: H ip/Thigh: 73 year old female presents with c/o hip pain P t is here today for c/o hip pain. Pt sts she is having pain in the left hip and sts it is from a fall she had on 10/30. Pt sts the pain is mainly in her hip but sts the pain does goes down into her left thigh as well. Pt sts she has been taking extra strength Tylenol and Lidocaine patches. Pt sts they do seem help some but does not take the pain away. Pt sts the pain is worse when walking, turning, getting up and down and when walking and sts that she does have to use a walker as well. c/o Fall. c/o Previous Injury. fell and was seen at orthoped; had a knee injection and then the hip started to hurt. C ardiology: c/o Chest Pain P t sts she was admitted to ER for having chest pain and goes back on the 12/30 for a cardiac imaging test. * ROS: R ESPIRATORY: no S hortness of breath. n o C hest pain. ? C ARDIOLOGY: no C hest pain. n o S hortness of breath. ? G ASTROENTEROLOGY: no A bdominal pain. n o D iarrhea. n o C onstipation. * Medical History: A sthma, Pneumonia , ASCVD, HLP, CHF, Pacemaker, Afib, Insomnia , Sleep apnea, Acid reflux, Kidney stones, Bleeding ulcer, Varicose veins, Seizures, Peripheral neuropathy, Osteopenia, Dysplasia on breast biopsy. * Surgical History: p acemaker X 3 , right knee arthroscopy 2017, right rotator cuff repair 10/2016, gastric bypass 2010, total hysterectomy at the age of 36 , tonsilectomy , kidney stone removal , bilateral breast biopsies , Colonoscopy - Dr. Arce , Rich-Cath , colonoscopy/ normal/ Dr. Arce 09/06/18, breast reduction , Tummy tuck , bilateral blepharoplasty 2021, Port Catheter Removal 11/2021, Total Knee Replacement 05/2022. * Hospitalization/Major Diagno stic Procedure: S out [facility] ER-seizure, passed out 03/2019, [facility] ER-syncope 10/24/2019, [facility] ER - syncope 10/28/2019. * Family History: F ather: 83 yrs, stroke, heart disease, COPD, diabetic. M other: 78 yrs, stroke, heart disease, COPD. 3 brother(s) , 4 sister(s) . 1 daughter(s) . . Brother with DM. Sister with pancreatic cancer. * Social History: C URRENT TOBACCO USE: No . C affeine: yes, frequency: diet dr li. Home smoke detector use: yes. Alcohol: Yes, wine, every other night. * Medications: T aking Ranexa , Taking Vitamin B-1 250 MG Tablet 2 tablet Orally twice a day , Taking Vitamin B-12 1000 MCG Tablet 1 tablet Orally Once a day , Taking Trelegy Ellipta 200-62.5-25 MCG/ACT Aerosol Powder Breath Activated 1 puff Inhalation Once a day , Taking Latisse 0.03 % Solution 1 diana applied topically once a day (at bedtime) , Taking ALBUTEROL HFA INHALER 200 METERED DOSES/ 8.5GM 2 INHALATIONS QID PRN , Notes to Pharmacist: *Please review for potential replacement for e-prescription and drug interaction check*, Taking Albuterol Sulfate 0.83MG/ML (2.5MG/3ML) 1 VIAL DIRECTED Q 4-6 HRS PRN PER NEBULIZER , Notes to Pharmacist: *Please review and pick correct strength-formulation from [employer] options. If intended option is not shown, discontinue and re-order from Quick Search*, Taking Vitamin D3 50 MCG (2000 UT) Tablet 1 tab(s) orally once a day , Taking NEBULIZER SET UP FOR ADULT DIRECTED , Notes to Pharmacist: *Please review for potential replacement for e-prescription and drug interaction check*, Taking Ipratropium-Albuterol 3/ 0.5/ 3 ML 3 ML TID , Notes to Pharmacist: *Please review and pick correct strength-formulation from [employer] options. If intended option is not shown, discontinue and re-order from Quick Search*, Taking Gabapentin 300 MG Capsule 1 cap(s) orally twice a day , Taking traMADol HCl 50 MG Tablet 1 tab(s) orally four times a day as needed , Taking Carafate 1 GM Tablet 1 tab(s) orally 4 times a day (before meals and at bedtime) , Taking Nebulizer/Tubing/Mouthpiece - Kit as directed , Taking Zolpidem Tartrate 10 MG Tablet 1 tab(s) orally once a day (at bedtime) , Taking Albuterol Sulfate (2.5 MG/3ML) 0.083% Nebulization Solution 3 ml Inhalation every 6 hrs, prn , Taking Atorvastatin Calcium 40 MG Tablet 1 tab(s) orally once a day , Taking Eliquis 5 MG Tablet 1 by mouth twice daily , Taking Montelukast Sodium 10 MG Tablet 1 tab(s) orally once a day , Taking Raloxifene HCl 60 MG Tablet TAKE 1 TABLET ONCE DAILY , Taking Venlafaxine HCl 37.5 MG Tablet TAKE 1 TABLET ONCE DAILY , Taking levETIRAcetam 500 MG Tablet 1 tab(s) orally 2 times a day , Taking Omeprazole 40 MG Capsule Delayed Release TAKE 1 CAPSULE DAILY , Medication List reviewed and reconciled with the patient * Allergies: C odeine, Dilaudid. Objective: * Vitals: W t:151.0, Temp:97.5, BP:116/60, HR:57, O2 Sat:96% on RA, Nurse:CHRISTIANA, Ht: 60, BMI:29.49. * Examination: G eneral Examination: General Appearance: NAD, alert, pleasant, well nourished and hydrated; uses a cane with ambulation. Heart: RRR. Lungs: CTAB A&P. H ip / Thigh: Hip joint: left. Palpation: not TTP. L ower back: Inspection: exaggerated lordosis. Palpation: no vertebral spine tenderness, no paraspinal spasm. Gait: walking with limp with cane. Assessment: * Assessment: 1. H ip pain - M25.559 (Primary) S pecify :left Plan: * Treatment: ?Imaging: X ray : Hip, left (Performed Date - 12/14/2023)?degenerative changes* Dai Avalos 12/15/2023 9:06:36 AM > I spoke with pt and reported results ?Imaging: X ray : Pelvis (Performed Date - 12/21/2023)?see hip x-ray Notes: continue use of cane/walker as needed; heat/ice application prn; meds with food?? * Procedure Codes: 9 4760 PULSE OX * Follow Up: w ill notify of test results * Billing Information: * Visit Code: 97122 Office Visit, Est Pt., Level 3. * Procedure Codes: 51194 PULSE OX. * Electronic signature of Anjelica Avalos APRN on 08/25/2024 at 12:27 PM EDT Sign off status: Pending * Provider: LIBERTAD Connor Date: 1 Generated for Jacobi ng/Akira/eTransmitting on: 0 08/25/2024 12:27 PM EDT History and Physical Notes * HPI (History of Present Illness) Category Sub-Category Detail Notes Category Not es Cardiology Chest Pain Pt sts she was a dmitted to ER for having chest pain and goes back on the 12/30 for a cardiac imaging test Hip/Thigh Fall fell and was se en at orthoped; had a knee injection and then the hip started to hurt Previous Injury hip pain Pt is here today for c/o hip pain. Pt sts she is having pain in the left hip and sts it is from a fall she had on 10/30. Pt sts the pain is mainly in her hip but sts the pain does goes down into her left thigh as well. Pt sts she has been taking extra strength Tylenol and Lidocaine patches. Pt sts they do seem help some but does not take the pain away. Pt sts the pain is worse when walking, turning, getting up and down and when walking and sts that she does have to use a walker as well Examination Category Sub-Category Detail Notes Category Not es General Examination Heart: RRR Lungs: CTAB A&P General Appearance: NAD, alert, pleasant , well nourished and hydrated; uses a cane with ambulation Lower back Gait: walking with limp with cane Inspection: exaggerated lordosis Palpation: no vertebral spine t enderness, no paraspinal spasm Hip / Thigh Hip joint: left Palpation: not TTP
--- OUTSIDE RECORDS SUMMARY | 2024-01-05 06:00 | XMS_ITS ---
Author Organization [facility] Address 1210 [facility] [address] [place] [phone] Care Team Providers Care Regulatory Affairs Assistant Name Role Phone Arjun Barrett Primary Care Provider Allergies Allergen (clinical drug ingredient) Drug/Non Drug Allergy documented on EMR Reaction Allergy Type Onset Date Status hydromorphone Dilaudid Unknown Drug Allergy Act lico codeine Codeine Unknown Drug Allergy Active REASON FOR VISIT Follow Up [facility] ER - [place] Medications Medication SIG (Take, Route, Frequency, Duration) Notes Start Date End Date Status levETIRAcetam 500 MG 1 tab(s) orally 2 times a day for 90 days Active Omeprazole 40 MG TAKE 1 CAPSULE DAILY for 90 days Active Lidoderm 5 % 1 patch remove after 12 hours Externally Once a day for 30 days 12/14/2023 Active Venlafaxine HCl 37.5 MG TAKE 1 TABLET ONCE DAILY for 90 days Active Albuterol Sulfate (2.5 MG/3ML) 0.083% 3 ml Inhalation every 6 hrs, prn Active Atorvastatin Calcium 40 MG 1 tab(s) orally once a day for 90 days Active Eliquis 5 MG 1 by mouth twice daily for 90 days Active Montelukast Sodium 10 MG 1 tab(s) orally once a day for 90 days Active Raloxifene HCl 60 MG TAKE 1 TABLET ONCE DAILY for 90 days Active Gabapentin 300 MG 1 [...] (at bedtime) for 30 day(s) 08/04/2023 Active ALBUTEROL HFA INHALER 200 METERED DOSES/ 8.5GM 2 INHALATIONS QID PRN *Please review for potential replacement for e-prescription and drug interaction check* Active Albuterol Sulfate 0.83MG/ML (2.5MG/3ML) 1 VIAL DIRECTED Q 4-6 HRS PRN PER NEBULIZER for 90 DAYS *Please review and pick correct strength-formulati on from [employer] options. If intended option is not shown, discontinue and re-order from [employer] Search* Active Vitamin D3 50 MCG (2000 UT) 1 tab(s) orally once a day for 90 days Active NEBULIZER SET UP FOR ADULT DIRECTED *Please review for potential replacement for e-prescription and drug interaction check* 07/31/2021 Active Ipratropium-Albuterol 3/ 0.5/ 3 ML 3 ML TID *Please review and pick correct strength-formulati on from [employer] options. If intended option is not shown, discontinue and re-order from Quick Search* 07/31/2021 Active Ranolazine ER 500 MG 1 tablet Orally Twice a day Active Vitamin B-1 250 MG 2 tablet Orally twice a day Active Vitamin B-12 1000 MCG 1 tablet Orally Once a day for 30 day(s) Active Trelegy Ellipta 200-62.5-25 MCG/ACT [...] 01/05/2024 Encounters Encounter Location Date Provider Diagnosis [facility] [address] [facility] [address] [place], [place] [phone] 01/05/2024 R Samy Arnold Fall W19.XXXA and Radial fracture S52.90XA Assessments [...] Follow Up: prn, Reason: Progress Notes * Dagmar FLORESaDOB: 1950 (74 yo F)Acc No.[id number]:01/05/2024 Progress Notes Patient: Dagmar TORRES Provider: Arjun Barrett M.D. :1950 A ge:73 Y S ex:Female Date:01/05/2024 Address:[id number] Subjective: * Chief Complaints: * 1 . Follow Up [facility] ER - [place]. * HPI: [...] 05/2022. * Hospitalization/Major Diagno stic Procedure: S [facility] ER-seizure, passed out 03/2019, [facility] ER-syncope 10/24/2019, [facility] ER - syncope 10/28/2019, [facility] ER - Fall- [place] 12/30/2023. [...] review and pick correct strength- formulation from Kalon [employer]icon[employer]orspan options. If intended option is not shown, [...] *Please review and pick correct strength-formulation from [employer] options. If intended option is not shown, [...] G eneral Examination: General Appearance: N AD. HEENT: T angela over the left scalp. No hematoma..? Neck: s upple, no lymphadenopathy. Heart: R SR. Lungs: c lear to auscultation. Extremities: L eft arm with volar splint in place.. ? Assessment: * Assessment: 1. F all - [...] 1.? * Follow Up: p rn * Billing Information: * Visit Code: 52283 Office Visit, Est Pt., Level 3. * Procedure Codes: * Electronic signature of Arjun Keron Barrett MD on 08/25/2024 at 12:24 PM EDT Sign off status: Pending * Provider: Arjun Barrett M.D. Date: Generated for Antonio maynard/Akira/eTransmitting on: 0 08/25/2024 12:24 PM EDT History and Physical Notes * [...]
--- OUTSIDE RECORDS SUMMARY | 2024-04-18 14:00 | XMS_ITS ---
Author Organization [facility] Address [address] [place] [address] [address] [place] [address] Care Team Providers Care Stripper Black And White Name Role Phone Joy PUENTES, Fran Primary Care Provider UnavailAdi Bermeo [phone] Adi Sanabria MD Unavailable Unavailable Crispin Tai JR [phone] REASON FOR VISIT L-WRIST Encounters Encounter Location Date Provider Diagnosis [facility] [address] [place] [address] 04/18/2024 Crispin Tai Plan Of Treatment No Information Progress Notes * Dagmar FLORESDOB: 9 (74 yo F)Acc No.[id number]:04/18/2024 Patient: Dagmar TORRES Provider: Brody Tai M.D. :1950 A ge:73 Y S ex:Female Date:04/18/2024 Address:[address] [place] [address] , [address] Pcp:Fran Hamilton MD Subjective: * Chief Complaints: * 1 . L-WRIST. * Medical History: Objective: * Vitals: Assessment: Plan: * Treatment: * Images: * Electronic signature of Edil Tai JR, MD on 08/25/2024 at 12:28 PM EDT Sign off status: Pending * Provider: Brody Tai M.D. Date: 0 04/18/2024 Generated for Antonio maynard/Akira/Mariitting on: 0 08/25/2024 12:28 PM EDT
--- OUTSIDE RECORDS SUMMARY | 2024-05-05 08:45 | XMS_ITS ---
Author Organization [facility], [facility] Address [address] [place] [address] Care Team Providers Care Hand Bander Name Role Phone Joy PUENTES, Fran Primary Care Provider Piero Miranda MD, Negro Unavailable REASON FOR VISIT egd Encounters Encounter Location Date Provider Diagnosis [facility] [address] [place] [address] 05/05/2024 Negro Miranda Plan Of Treatment Next Appt Details Provider Name:Negro molina, 09/29/2028 11:00:00 AM, [address], [address], Progress Notes * Penny FLORESena GDOB: [birth year] (74 yo F)Acc No.[id number]:05/05/2024 Patient: Dagmar TORRES Provider: Alicia Oseguera M.D :1950 A ge:73 Y S ex:Female Date:05/05/2024 Address:[address] [place], [place] [id number] Pcp:Fran Hamilton MD * Images: * Electronic signature of Catarino Miranda MD on 08/25/2024 at 12:28 PM EDT Sign off status: Pending * Provider: Alicia Oseguera M.D Date: 0 05/05/2024 Generated for Printi ng/Faxing/eTransmitting on: 0 08/25/2024 12:28 PM EDT
--- OUTSIDE RECORDS SUMMARY | 2024-05-31 10:45 | XMS_ITS ---
Author Organization [employer], [facility] Address [address] [place] [address] Care Team Providers Care Airfield Engineer Officer Name Role Phone Joy PUENTES, Fran Primary Care Provider Piero Miranda MD, [facility] Unavailable Allergies Allergen (clinical drug ingredient) Drug/Non Drug Allergy documented on EMR Reaction Allergy Type Onset Date Status hydromorphone Dilaudid Unknown Drug Allergy Act lico codeine Codeine Unknown Drug Allergy Active REASON FOR VISIT Patient presents to office for follow up from procedure, has c/o dysphagia Medications Medication SIG (Take, Route, Frequency, Duration) Notes Start Date End Date Status Trelegy Ellipta 200-62.5-25 MCG/ACT USE 1 INHALATION ORALLY DAILY. RINSE MOUTH AFTER EACH USE. Inhalation for 30 Days Active Venlafaxine HCl 37.5 MG Oral for 30 Days Active Sucralfate 1 GM Oral for 30 Days Active Omeprazole 40 MG Oral for 30 Days Active Ranolazine ER 1000 MG Oral for 90 Days Active Gabapentin 300 MG Oral for 90 Days Active Midodrine HCl 5 MG Oral for 30 Days Active Montelukast Sodium 10 MG TAKE 1 TABLET O NCE DAILY Oral for 90 Days Active levETIRAcetam 500 MG Oral for 90 Days Active Metoprolol Tartrate 25 MG Oral for 90 Days Active Eliquis 5 MG Oral for 90 Days Active DULoxetine HCl 30 MG Oral for 30 Days Active Atorvastatin Calcium 40 MG TAKE 1 TABLET ONCE DAILY Oral for 90 Days Active Celecoxib 100 MG TAKE ONE CAPSULE BY MOUTH TWICE A DAY WITH FOOD Oral for Not Available Active ALPRAZolam 0.25 MG Oral for 10 Days Active Albuterol Sulfate HFA 108 (90 Base) MCG/ACT 1 puff as needed Inhalation every 4 hrs 05/03/2024 Active Albuterol Sulfate (2.5 MG/3ML) 0.083% USE 1 VIAL IN NEBULIZER EVERY 6 HOURS NEEDED Inhalation for 15 Days Active Social History Tobacco Use: Social History Observation Description Date Details (start date - stop date) Never Smoker NA - NA Tobacco Control (Standard) Question Answer Notes Tobacco use: Nonsmoker AUDIT-C (Standard) Question Answer Notes Did you have a drink contain ing alcohol in the past year? Yes How often did you have a dri nk containing alcohol in the past year? Daily or almost daily (4 points) How many drinks did you have on a typical day when you were drinking in the past year? 1 or 2 drinks (0 point) How often did you have six o r more drinks on one occasion in the past year? Never (0 point) Points 4 Interpretation Positive Section Notes: Per patient has 2 glasses of wine per night Problems Problem Type SNOMED Code ICD Code Onset Dates Problem Status W/U Status Risk Notes Problem Gastro-esophageal reflux disease without esophagitis (252464465) Gastro-esophag eal reflux disease without esophagitis (K21.9) 06/01/19 Active confirmed Problem Gastroduodenitis (152988635) Gastritis, unspecified, without bleeding (K29.70) 06/01/19 Active confirmed Problem Dysphagia (67765618) Dysphagia, unspecified (R13.10) 06/01/19 Active confirmed Problem History of bariatric surgical procedure (694512575) Bariatric surgery status (Z98.84) 06/01/19 Active confirmed Vital Signs Blood pressure systolic 140 mm Hg 06/01/19 Blood pressure diastolic 77 mm Hg 025 Heart Rate 80 /min 05/31/2024 Weight 145 lbs 05/31/2024 Encounters Encounter Location Date Provider Diagnosis [facility], [address] [place], [place] [address] 05/31/[address] Gastro-esophageal reflux disease without esophagitis K21.9 ; Gastritis, unspecified, without bleeding K29.70 ; Dysphagia, unspecified R13.10 and Bariatric surgery status Z98.84 Assessments Encounter Date Diagnosis (ICD Code) Assessment Notes Treatment Notes Treatment Clinical Notes Section Notes 05/31/2024 Gastro-esophag eal reflux disease without esophagitis (ICD-10 - K21.9) Gastroesophageal Reflux Disease (GERD): Care Instructions material was published g Anti Reflux measures were discussed. Advised patient of lifestyle modification for GERD. Specific reflux modifications include: eat smaller meals, avoid laying down after a meal for at least 3 hours, elevate the head of the bed, maintain healthy weight, avoid tight fitting clothes, avoid beverages/foods that contain high acid content (not limited to): coffee, soda, chocolate, oranges, orange juice, grapefruit juice, tomato sauce, tomato soup, tomato juice, spicy foods. 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 05/31/2024 Gastritis, unspecified, without bleeding (ICD-10 - K29.70) Advised patient to use Omeprazole as needed and to avoid NSAID use. 05/31/2024 Dysphagia, unspecified (ICD-10 - R13.10) Due to Esophageal Dysmotility Syndrome. S/p Dilation Advised to eat small pieces of meat and food. Eat slowly and chew food well. May need repeat EGD and Esophageal dilation if symptoms worsens. 05/31/2024 Bariatric surgery status (ICD-10 - Z98.84) Plan Of Treatment Treatment Notes Assessment Notes Gastro-esophageal reflux dis ease without esophagitis Gastroesophageal Reflux Disease (GERD): Care Instructions material was published Next Appt Details Follow Up: 5Y, Reason: Colon Provider Name:Negro molina, 09/29/2028 11:00:00 AM, [address] [place], [address], Progress Notes * Dagmar FLORES GDOB: [birth year] (74 yo F)Acc No.[id number]:05/31/2024 Progress Notes Patient: Dagmar TORRES Provider: Alicia Oseguera M.D :1950 A ge:73 Y S ex:Female Date:05/31/2024 Address:[address] [place], [place] [address] Pcp:Fran Hamilton MD Subjective: * Chief Complaints: * 1 . Patient presents to office for follow up from procedure, has c/o dysphagia. * HPI: C onstitutional: p atient dysphagia is been resolved. * ROS: E NT: Sore throat d enies. R espiratory: Shortness of breath d enies. C ardiovascular: Chest pain d enies. G astrointestinal: Abdominal pain d enies. R ectal bleeding d enies.?Weight loss d enies. * Medical History: A trial fibrillation s/p ablation, Hyperlipidemia, Hypotension, Myocardial Infarction, Colonoscopy done 09/2023 per patient negative, EGD done on 05/05/2024 Previous surgery in Gastric remnant, Gastritis, Reflux, Esophageal Dysmotility (Dilation). * Surgical History: K nee Replacement 02/2024, Pacemaker, Cardiac , Cardiac Ablation , Gastric Bypass , Liyah Fundoplication . * Family History: Grandfather: Colon Cancer. * Social History: T obacco Use: T obacco Control (Standard) T obacco use: N onsmoker D rug/Alcohol: A ERIN-C (Standard) D id you have a drink containing alcohol in the past year? Y es H ow often did you have a drink containing alcohol in the past year? D aily or almost daily (4 points) H ow many drinks did you have on a typical day when you were drinking in the past year? 1 or 2 drinks (0 point) H ow often did you have six or more drinks on one occasion in the past year? N ever (0 point) P oints 4 I nterpretation P ositive P er patient has 2 glasses of wine per night. * Medications: T aking Albuterol Sulfate (2.5 MG/3ML) 0.083% Nebulization Solution USE 1 VIAL IN NEBULIZER EVERY 6 HOURS NEEDED Inhalation , Taking Albuterol Sulfate HFA 108 (90 Base) MCG/ACT Aerosol Solution 1 puff as needed Inhalation every 4 hrs , Taking ALPRAZolam 0.25 MG Tablet Oral , Taking Atorvastatin Calcium 40 MG Tablet TAKE 1 TABLET ONCE DAILY Oral , Taking Celecoxib 100 MG Capsule TAKE ONE CAPSULE BY MOUTH TWICE A DAY WITH FOOD Oral , Taking DULoxetine HCl 30 MG Capsule Delayed Release Particles Oral , Taking Eliquis 5 MG Tablet Oral , Taking Gabapentin 300 MG Capsule Oral , Taking levETIRAcetam 500 MG Tablet Oral , Taking Metoprolol Tartrate 25 MG Tablet Oral , Taking Midodrine HCl 5 MG Tablet Oral , Taking Montelukast Sodium 10 MG Tablet TAKE 1 TABLET ONCE DAILY Oral , Taking Omeprazole 40 MG Capsule Delayed Release Oral , Taking Ranolazine ER 1000 MG Tablet Extended Release 12 Hour Oral , Taking Sucralfate 1 GM Tablet Oral , Taking Trelegy Ellipta 200-62.5-25 MCG/ACT Aerosol Powder Breath Activated USE 1 INHALATION ORALLY DAILY. RINSE MOUTH AFTER EACH USE. Inhalation , Taking Venlafaxine HCl 37.5 MG Tablet Oral , Medication List reviewed and reconciled with the patient * Allergies: C odeine: Allergy, Dilaudid: Allergy. Objective: * Vitals: W t:145lbs, BP:140/77mm Hg, HR:80/min. * Examination: G eneral Examination: GENERAL APPEARANCE: i n no acute distress, well developed, well nourished. HEART: n o murmurs, regular rate and rhythm, S1, S2 normal.? LUNGS: c lear to auscultation bilaterally. ABDOMEN: n ormal, bowel sounds present, soft, nontender, nondistended. Assessment: * Assessment: 1. G dusty-esophageal reflux disease without esophagitis - K21.9 (Primary) 2 .?Gastritis, unspecified, without bleeding - K29.70 3 . D ysphagia, unspecified - R13.10 4 . B ariatric surgery status - Z98.84 Plan: * Treatment: 2. G astritis, unspecified, without bleeding Clinical Notes: Advised patient to use Omeprazole as needed and to avoid NSAID use. 3. D ysphagia, unspecified Clinical Notes: Due to Esophageal Dysmotility Syndrome. S/p Dilation Advised to eat small pieces of meat and food. Eat slowly and chew food well. May need repeat EGD and Esophageal dilation if symptoms worsens. * Procedure Codes: 3 017F COLORECTAL CA SCREEN DOC REV, G9903 Pt scrn tbco id as non user * Preventive Medicine: YOUR PREVENTIVE WELLNESS PLAN: B NM, Height, and Weight: The Recommended Frequency is: A nnually My BMI, height, and weight were taken on: 0 05/03/2024 R ecommendations For Improvement The recommendations are: D iet, Exercise, Weight management MAAME Screening: C olonoscopy Was interval between colonoscopies three years or more? N o due to Medical Reason Colonoscopy done 09/2023 Was last colonoscopy performed three or more years ago? N o due to Medical Reason Colonoscopy done 09/2023 Counseling: A LCOHOL USE/ABUSE SCREENING: MODERATION OF ETOH CONSUMPTION RECOMMENDATION: C ounseling about alcohol consumption C are goal follow-up plan: Nutrition/Dietary Counseling provided?Yes BMI counseling provided to patient:?Referred to primary care for abnormal BMI BMI management provided Y es Above Normal BMI Follow-up G iving encouragement to exercise Screenings: C OLORECTAL CANCER SCREENING RECOMMENDED: Was interval between colonoscopies three years or more? N o due to Medical Reason Colonoscopy done September 2023 Ten year follow-up for colonoscopy recommended? N o Family h/o colon cancer Reason: M edical Reason Family h/o colon cancer Adenoma or other neoplasm detected during screening colonoscopy: N o, reason documented Per patient, No adenoma detected Date of most recent screening: A s per the patient was done years September 2023 The last colonoscopy showed: A s per the patient was negative Provider recommendation: R epeat Colonoscopy in 5 years, September 2028 * Follow Up: 5 Y (Reason: Colon) * Images: * Electronic signature of Catarino Miranda MD on 08/25/2024 at 12:24 PM EDT Sign off status: Pending * Provider: Alicia Oseguera M.D Date: 0 05/31/2024 Generated for Antonio maynard/Akira/Solis on: 0 08/25/2024 12:24 PM EDT History and Physical Notes * HPI (History of Present Illness) Category Sub-Category Detail Notes Category Not es Constitutional patient dysph agia is been resolved Examination Category Sub-Category Detail Notes Category Not es General Examination GENERAL APPEARANCE: in no ac [place] distress, well developed, well nourished HEART: no murmurs, regular rate and rhythm, S1, S2 normal LUNGS: clear to auscultatio n bilaterally ABDOMEN: normal, bowel sounds present, soft, nontender, nondistended
--- OUTSIDE RECORDS SUMMARY | 2024-06-29 05:10 | XMS_ITS ---
Author Organization [facility] Address [address] [place] [address] Care Team Providers Care Ruffling Hemmer Automatic Name Role Phone MAX LOPEZ Primary Care Provider [phone] Ashlee Argueta [phone] REASON FOR VISIT r/s chart review Social History Sex Assigned At : Social History Observation Description Sex Assigned At Female Encounters Encounter Location Date Provider Diagnosis [facility] [address] [place] [address] 06/29/2024 Ashlee Argueta Plan Of Treatment Next Appt Details Provider Name:MAX LOPEZ, 01/18/2025 08:30:00 AM, [address] [place] [address], [phone], Provider Name:Kolton Vazquez, 04:40:00 PM, [address] [place] [address], [phone], Provider Name:Girma nance, 05/29/2025 01:50:00 PM, [address] [place] [address], [phone], Progress Notes * IDA MOTLEY GDOB: [birth year] (74 yo F)Acc No.[id number]:06/29/2024 Patient: IDA TORRES Provider: Salma Argueta :1950 A ge:74 Y S ex:Female Date:06/29/2024 Address:[address] [place] [address] , [address], [facility] Pcp:MAX LOPEZ Structured Data:Seasonal : Y es; How did you hear about our practice? : Established patient Subjective: * Chief Complaints: * 1 . R/s chart review. * Medical History: Objective: * Vitals: Assessment: Plan: * Treatment: * Billing Information: * Visit Code: * Procedure Codes: * Electronic signature of Ted Argueta APRN on 08/25/2024 at 12:25 PM EDT Sign off status: Pending * Provider: Salma Argueta Date: 06/29/2024 Generated for Antonio Romo/Solis on: 08/25/2024 12:25 PM EDT
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
--- OUTSIDE RECORDS SUMMARY | 2024-06-30 11:10 | XMS_ITS ---
Author Organization [facility] Address [address] [place] [address] Care Team Providers Care Lion Tamer Name Role Phone MAX LOPEZ Primary Care Provider HENRRY CONNORS Unavailable [phone] Allergies Allergen (clinical drug ingredient) Drug/Non Drug Allergy documented on EMR Reaction Allergy Type Onset Date Status Aspirin (ASA) Gastric ulcer Drug Allergy Active Codeine Unknown Drug Allergy 04/25/2005 Active hydromorphone Dilaudid Unknown Drug Allergy 04/25/2005 Ac tive trazodone traZODone HCl headache Drug Allergy 01/23/2021 Ac tive Results Component Value Reference Range Notes Ferritin, Serum Reviewed date:07/01/2024 10:47:40 AM Interpretation: Performing Lab:TP [facility]-[id number] [id number] Matthew Jameson MD Notes/Report: FASTING: UNKNOWN FERRITIN 68 16-288 ng/mL IRON, TOTAL Reviewed date:07/01/2024 10:46:27 AM Interpretation: Performing Lab:JANE [facility]-Jessie [id number] Matthew Jameson MD Notes/Report: FASTING: UNKNOWN IRON, TOTAL 30 45-160 mcg/dL VITAMIN B12/FOLATE, SERUM PA LINDA Reviewed date:07/01/2024 10:47:53 AM Interpretation: Performing Lab:[facility] [id number] Matthew Jameson MD Notes/Report: FASTING: UNKNOWN VITAMIN B12 839 976-0736 pg/mL FOLATE, SERUM 6.3 Reference Range Low: <3.4 Borderline: 3.4-5.4 Normal: >5.4 CBC/Diff Ambiguous Default Reviewed date:07/01/2024 10:46:42 AM Interpretation: Performing Lab:TP, [facility]-[id number] [address] [id number] Matthew Jameson MD Notes/Report: FASTING: UNKNOWN WHITE BLOOD CELL COUNT 6.5 3.8-10.8 Thousand/ uL RED BLOOD CELL COUNT 3.72 3.80-5.10 Million/uL HEMOGLOBIN 10.8 11.7-15.5 g/dL HEMATOCRIT 35.1 35.0-45.0 % MCV 94.4 80.0-100.0 fL MCH 29.0 27.0-33.0 pg MCHC 30.8 32.0-36.0 g/dL For adults, a slight decrease in the calculated MCHC value (in the range of 30 to 32 g/dL) is most likely not clinically significant; however, it should be interpreted with caution in correlation with other red cell parameters and the patient's clinical condition. RDW 12.8 11.0-15.0 % PLATELET COUNT 358 140-400 Thousand/uL MPV 10.2 7.5-12.5 fL ABSOLUTE NEUTROPHILS 3582 6193-1747 cells/uL ABSOLUTE LYMPHOCYTES 2035 850-3900 cells/uL ABSOLUTE MONOCYTES 566 200-950 cells/uL ABSOLUTE EOSINOPHILS 267 15-500 cells/uL ABSOLUTE BASOPHILS 52 0-200 cells/uL NEUTROPHILS 55.1 LYMPHOCYTES 31.3 MONOCYTES 8.7 EOSINOPHILS 4.1 BASOPHILS 0.8 COMPREHENSIVE METABOLIC PANE L Reviewed date:07/01/2024 10:47:02 AM Interpretation: Performing Lab:TP [facility]-[id number] [address] [id number] Matthew Jameson MD Notes/Report: FASTING: UNKNOWN GLUCOSE 105 65-99 mg/dL Fasting reference interval For someone without known diabetes, a glucose value between 100 and 125 mg/dL is consistent with prediabetes and should be confirmed with a follow-up test. UREA NITROGEN (BUN) 8 7-25 mg/dL CREATININE 0.64 0.60-1.00 mg/dL EGFR 92 > OR = 60 mL/min/1.73m2 BUN/CREATININE RATIO SEE NOTE: 6-22 (calc) Not Reported: BUN and Creatinine are within reference range. SODIUM 140 135-146 mmol/L POTASSIUM 4.3 3.5-5.3 mmol/L CHLORIDE 105 98-110 mmol/L CARBON DIOXIDE 22 20-32 mmol/L CALCIUM 8.5 8.6-10.4 mg/dL PROTEIN, TOTAL 5.8 6.1-8.1 g/dL ALBUMIN 3.6 3.6-5.1 g/dL GLOBULIN 2.2 1.9-3.7 g/dL (calc) ALBUMIN/GLOBULIN RATIO 1.6 1.0-2.5 (calc) BILIRUBIN, TOTAL 0.3 0.2-1.2 mg/dL ALKALINE PHOSPHATASE 117 37-153 U/L AST 15 10-35 U/L ALT 5 6-29 U/L REASON FOR VISIT LEFT HIP PAIN, ANEMIA, LOW K, LOW VITAMIN B 12, SYNCOPE Medications Medication SIG (Take, Route, Frequency, Duration) Notes Start Date End Date Status traMADol HCl 50 MG 1 tablet as needed ACUTE PAIN EXCEPTION Orally Two times a day for 10 days PRN 06/02/2023 Unknown Sucralfate 1 GM 1 tablet on an empty stomach Oral Twice a day for 30 days 03/14/2024 Unknown Flonase Allergy Relief 50 MCG/ACT 1 spray in each nostril Nasally Twice a day for 30 days 05/09/2024 Unknown Vitamin B-6 100 MG 1 tablet Orally Once a day Unknown Vitamin B-1 100 MG 1 tablet Orally Once a day Unknown Trelegy Ellipta 200-62.5-25 MCG/ACT Inhale 1 puff by mouth once daily. Rinse mouth after each use for 30 days Active ARIPiprazole 20 MG 1 tablet Orally Once a day for 30 days 05/02/2024 Unknown ALPRAZolam 0.25 MG 1 tablet Orally Twice a day for 10 days As needed 05/02/2024 Unknown Syringes with Afton 1 cc syringes with 25 gauge needles for B12 injections monthly for 90 days 05/07/2017 Active Metoprolol Tartrate 25 MG 1 tablet with food Orally once a day at bedtime for 90 days Active Keppra 500 MG 1 tablet Orally ever y 12 hrs for 90 days Active Omeprazole 40 MG 1 capsule Orally twi ce a day for 30 days 06/14/2020 Active Montelukast Sodium 10 MG Take 1 tablet b y mouth once daily for 90 days Active Midodrine HCl 5 MG 1 tablet at 7 am 1 tablet at 11 am Orally for 30 days As needed Active Eliquis 5 MG Take 1 tablet Orally Twice a day for 90 days Active Effexor XR 75 MG 1 capsule with food Oral Once a day for 90 days Active Cyanocobalamin 1000 MCG/ML 1,000mcg / 1c c q month Injection once a month for 90 days Active Atorvastatin Calcium 40 MG 1 tablet Oral ly every night for 90 days Active Gabapentin 300 MG TAKE 1 CAPSULE EVERY MORNING AND TAKE 3 CAPSULES AT BEDTIME for 90 days Active Albuterol Sulfate HFA 108 (90 Base) MCG/ACT 1 puff as needed Inhalation every 4-6 hours Active Albuterol Sulfate 1.25 MG/3ML 3 ml as needed Inhalation Three times a day dx j44.9 for 90 days Active Ranolazine ER 500 MG 1 tablet Orally Twi ce a day Active Social History Sex Assigned At : Social History Observation Description Sex Assigned At Female Problems Problem Type SNOMED Code ICD Code Onset Dates Problem Status W/U Status Risk Notes Problem Anemia, unspecified (D64.9) Active confirmed Vital Signs Blood pressure systolic 112 mm Hg 07/01/19 25 Blood pressure diastolic 62 mm Hg 025 Heart Rate 85 /min 06/30/2024 Respiratory Rate 18 /min 06/30/2024 Height 61 in 06/30/2024 Weight 143.4 lbs 06/30/2024 BMI 27.09 kg/m2 06/30/2024 Oximetry 98 % 06/30/2024 Encounters Encounter Location Date Provider Diagnosis [facility] [address] [place] [address] 06/30/2024 HENRRY CONNORS Anemia, unspecified D64.9 ; Syncope, unspecified syncope type R55 ; Low serum potassium E87.6 ; B12 deficiency E53.8 ; Left hip pain M25.552 and Hospital discharge follow-up Z09 Assessments Encounter Date Diagnosis (ICD Code) Assessment Notes Treatment Notes Treatment Clinical Notes Section Notes 06/30/2024 Anemia, unspecified (ICD-10 - D64.9) Recommendations include: laboratory monitoring and treatment adherance. 06/30/2024 Syncope, unspecified syncope type (ICD-10 - R55) 06/30/2024 Low serum potassium (ICD-10 - E87.6) Will repeat K. 06/30/2024 B12 deficiency (ICD-10 - E53.8) Balanced diet, supplement and repeat test and watch for b12 def symptoms. 06/30/2024 Left hip pain (ICD-10 - M25.552) Mobilize each joint/muscle gently, Regular exercise and a healthy diet, calcium and vitamin D supplement. Use heat or ice cold pack to ease pain Tyelnol, NSAIDS explained, also topical meds like Aspercream etc. 06/30/2024 Hospital discharge follow-up (ICD-10 - Z09) Hospital record reviewed with pt and med reconciliation was completed. 06/30/2024 Other RECOMMENDATIONS given include: routine exercise ,balanced diet and watch for neuropathy symptoms . Plan Of Treatment Treatment Notes Assessment Notes Anemia, unspecified Recommendations incl ude: laboratory monitoring and treatment adherance. Low serum potassium Will repeat K. B12 deficiency Balanced diet, suppl ement and repeat test and watch for b12 def symptoms. Left hip pain Mobilize each joint/muscle gently, Regular exercise and a healthy diet, calcium and vitamin D supplement. Use heat or ice cold pack to ease pain Tyelnol, NSAIDS explained, also topical meds like Aspercream etc. Hospital discharge follow-up Hospital re cord reviewed with pt and med reconciliation was completed. Other RECOMMENDATIONS give n include: routine exercise ,balanced diet and watch for neuropathy symptoms . Pending Test Test Name Order Date Comp. Metabolic Panel (14) 06/30/2024 Next Appt Details Follow Up: after lab, Reason : Provider Name:MAX LOPEZ, 01/18/2025 08:30:00 AM, [address] [place] [address], [phone], Provider Name:Kolton Vazquez, 04:40:00 PM, [address] [place] [address], [phone], Provider Name:Girma nance, 05/29/2025 01:50:00 PM, [address] [place] [address], [phone], Progress Notes * IDA MOTLEY GDOB: [birth year] (74 yo F)Acc No.[id number]:06/30/2024 Progress Note Patient: IDA TORRES Provider: HILARIO Jurado :1950 A ge:74 Y S ex:Female Date:06/30/2024 Address:[address] [place] [address] , [id number] Pcp:MAX LOPEZ Structured Data:Seasonal : Y es; How did you hear about our practice? : Established patient Subjective: * Chief Complaints: * L EFT HIP PAIN, ANEMIA, LOW K, LOW VITAMIN B 12, SYNCOPE * HPI: I nterim History: Was hospitalized a t a n inpatient facility [facility] &, @ [facility] a dmitting diagnosis: P rimary osteoarthritis of left hip/ Near syncope/ Critical illness myopathy/ Asthenia/ Hypokalemia/ Diarrhea Inpatient Discharge: T his office visit is within 14 days of discharge Y es Transition of care visit from hospital D ate of admission to hospital: 0 06/19/2024 & 06/07/2024 D ate of discharge from hospital: 0 06/23/2024 & 06/08/2024 D ischarge medications reviewed and reconciled from hospital: ( 1111F) Medications changed (e.g. discontinued, changed or added) C hanges include d iscontinue, decrease D iscontinue: * stopped but not on our list* Metoprolol Succinate 25mg, Medical Marijuana, Oxycodone 5-325mg & Tramadol 50mg D ecrease: G abapentin 300mg 1tab, by mouth, once a day (START 06/23/2024)/ WAS 300mg 3tabs, once a day L aboratory results: R esults of clinical test reviewed and discussed with patient. R adiology results: R esults of radiology tests reviewed and discussed with patient P rocedures: P rocedural tests and medication related tests reviewed and discussed with patient. A tahmian KIMI: Phone Assessment - Outreach Interaction: - --MEDICATION CHECK--- A ll medications that are current on patients list match the hospital list and were reconciled with the hospital list, Medications on the hospital list but not on ours are: Calcium 500 & Dpo 500mg 1tab, by mouth, twice a day & Raloxifene 60mg 1tab, by mouth, once a day, Differences: Ranolazine: hospital has 500mg/ WE have 1000mg & Venlafaxine: hospital has 37.5mg/ WE have 75mg, All medications marked unknown are not on the hospital list and need to be covered with the patient V itamin B Deficiency: Patient presents with vitamin B deficiency . . Associated symptoms include f atigue. Prior work-up includes l aboratory testing, B-12 level 461 performed on 06/30/24. pt reports taking injection herself once a month. 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 P atient presents for: KIMI, 06/19/2024-06/23/2024, patient was admitted for syncope episode and unable to ambulate, chest x-ray unremarkable, carotid ultrasound shows mild plaque with no significant stenosis, urine culture negative, CT brain: n one-acute, echo with ejection fraction 60 to 65%, patient recommended to follow- up with cardiology as outpatient. pt today states she followed up with cardiology, Dr. Mendoza this am. Anemia. noted hemoglobin 9.2 on 06/23/2024, improved to 10.3 on 2024. Will repeat lab. Low p otassium. noted K 2 .9 on 06/19/2024, improved to 3.9 on 06/23/2024, will repeat lab. Left hip pain. noted L eft hip total arthroplasty with Dr. Sanabria on 06/07/2024, improved hip pain, no new concerns at this time. * ROS: G eneral/Constitutional: Patient denies f ever , fatigue , chills. A llergy/Immunology: Patient denies h rosalba , seasonal allergies. ? O phthalmologic: Patient denies b lurry vision , double vision , eye pain.? E NT: Patient denies d ecreased hearing , ear pain , sore throat.? E ndocrine: Patient denies e xcessive sweating , excessive thirst. R espiratory: Patient denies c ough , hemoptysis , shortness of breath.? C ardiovascular: Patient denies c hest pain , palpitations. G astrointestinal: Patient denies a bdominal pain , diarrhea , nausea , vomiting. H ematology: SEE Bhupinder SANDOVAL. Ruthie enitourinary: Patient denies f requent urination , painful urination.? M usculoskeletal: SEE Bhupinder SANDOVAL. S kin: Patient denies d ry skin , rash , itching. N eurologic: SEE Bhupinder PI. P sychiatric: Patient denies a nxiety , suicidal thoughts. ? * Medical History: * Surgical History: A rthroscopy: Left knee 2004Breast Biopsy Hysterectomy Partial (ovaries remaining) 1986Nissen Fundoplasty 1996Pacemaker Implantation ([facility])- Gastroplasty 1986Roux en Y gastric bypass Bilateral upper lid lift 05/10/2021Total Knee Replacement-right 3knee revision 04/21/23left hip replacement 06/07/2024 * Hospitalization/Major Diagno stic Procedure: H ysterectomy 1986Right knee replacement 07/21/2017pt passed out 10/09/20- 10/11/20melanoma removed from arm 2DX fall @ [facility] ER VISIT 4DX lt hip pain @ [facility] 06/07/2024-06/08/2024DX syncope @ [facility] 06/19/2024-06/23/2024 * Family History: Positive for Coronary Artery Disease ( father; mother ). Positive for Breast Cancer ( mat. GM ) and Cervical Cancer ( sister ). Negative for Colon Cancer or Ovarian Cancer. * Social History: [employer] Social History: T obacco T obacco use [...] achelors degree (e.g., MA, MS, Brain, MEd, AIRPORT REPRESENTATIVE, ALISTAIR) O ccupation r alexa Chavez arital status: M arried # of children: 1 [...] week H ow often do you attend mandaen or taoism services? M ore than 4 times per year D o you belong to any clubs or organizations??Yes T otal Social Isolation Score (NHANES): 0 Specialist ([facility]) D ermatologist S uncoast * Medications: T akingRanolazine ER 500 MG Tablet Extended Release 12 Hour 1 tablet Orally Twice a day Albuterol Sulfate 1.25 MG/3ML Nebulization Solution 3 ml as needed Inhalation Three times a day dx j44.9 Albuterol Sulfate HFA 108 (90 Base) MCG/ACT Aerosol Solution 1 puff as needed Inhalation every 4-6 hours Atorvastatin Calcium 40 MG Tablet 1 tablet Orally every night Cyanocobalamin 1000 MCG/ML Solution 1,000mcg / 1cc q month Injection once a month Effexor XR 75 MG Capsule Extended Release 24 Hour 1 capsule with food Oral Once a day Eliquis 5 MG Tablet Take 1 tablet Orally Twice a day Gabapentin 300 MG Capsule TAKE 1 CAPSULE EVERY MORNING AND TAKE 3 CAPSULES AT BEDTIME Keppra 500 MG Tablet 1 tablet Orally every 12 hrs Metoprolol Tartrate 25 MG Tablet 1 tablet with food Orally once a day at bedtime Midodrine HCl 5 MG Tablet 1 tablet at 7 am 1 tablet at 11 am Orally As neededMontelukast Sodium 10 MG Tablet Take 1 tablet by mouth once daily Omeprazole 40 MG Capsule Delayed Release 1 capsule Orally twice a day Trelegy Ellipta 200-62.5-25 MCG/ACT Aerosol Powder Breath Activated Inhale 1 puff by mouth once daily. Rinse mouth after each use Syringes with Afton 1 cc syringes with 25 gauge needles for B12 injections monthly Taking Ranolazine ER 500 MG Tablet Extended Release 12 Hour 1 tablet Orally Twice a day Taking Albuterol Sulfate 1.25 MG/3ML Nebulization Solution 3 ml as needed Inhalation Three times a day dx j44.9 Taking Albuterol Sulfate HFA 108 (90 Base) MCG/ACT Aerosol Solution 1 puff as needed Inhalation every 4-6 hours Taking Atorvastatin Calcium 40 MG Tablet 1 tablet Orally every night Taking Cyanocobalamin 1000 MCG/ML Solution 1,000mcg / 1cc q month Injection once a month Taking Effexor XR 75 MG Capsule Extended Release 24 Hour 1 capsule with food Oral Once a day Taking Eliquis 5 MG Tablet Take 1 tablet Orally Twice a day Taking Gabapentin 300 MG Capsule TAKE 1 CAPSULE EVERY MORNING AND TAKE 3 CAPSULES AT BEDTIME Taking Keppra 500 MG Tablet 1 tablet Orally every 12 hrs Taking Metoprolol Tartrate 25 MG Tablet 1 tablet with food Orally once a day at bedtime Taking Midodrine HCl 5 MG Tablet 1 tablet at 7 am 1 tablet at 11 am Orally As neededTaking Montelukast Sodium 10 MG Tablet Take 1 tablet by mouth once daily Taking Omeprazole 40 MG Capsule Delayed Release 1 capsule Orally twice a day Taking Trelegy Ellipta 200-62.5-25 MCG/ACT Aerosol Powder Breath Activated Inhale 1 puff by mouth once daily. Rinse mouth after each use Taking Syringes with Afton 1 cc syringes with 25 gauge needles for B12 injections monthly DiscontinuedRanolazine ER 1000 MG Tablet Extended Release 12 Hour 1 tablet Oral Twice a day Discontinued Ranolazine ER 1000 MG Tablet Extended Release 12 Hour 1 tablet Oral Twice a day UnknownALPRAZolam 0.25 MG Tablet 1 tablet Orally Twice a day As neededARIPiprazole 20 MG Tablet 1 tablet Orally Once a day Flonase Allergy Relief 50 MCG/ACT Suspension 1 spray in each nostril Nasally Twice a day Sucralfate 1 GM Tablet 1 tablet on an empty stomach Oral Twice a day traMADol HCl 50 MG Tablet 1 tablet as needed ACUTE PAIN EXCEPTION Orally Two times a day , Notes to Pharmacist: PRNVitamin B-1 100 MG Tablet 1 tablet Orally Once a day Vitamin B-6 100 MG Tablet 1 tablet Orally Once a day Medication List reviewed and reconciled with the patientUnknown ALPRAZolam 0.25 MG Tablet 1 tablet Orally Twice a day As neededUnknown ARIPiprazole 20 MG Tablet 1 tablet Orally Once a day Unknown Flonase Allergy Relief 50 MCG/ACT Suspension 1 spray in each nostril Nasally Twice a day Unknown Sucralfate 1 GM Tablet 1 tablet on an empty stomach Oral Twice a day Unknown traMADol HCl 50 MG Tablet 1 tablet as needed ACUTE PAIN EXCEPTION Orally Two times a day , Notes to Pharmacist: PRNUnknown Vitamin B-1 100 MG Tablet 1 tablet Orally Once a day Unknown Vitamin B-6 100 MG Tablet 1 tablet Orally Once a day Medication List reviewed and reconciled with the patient * Allergies: A spirin (ASA): Gastric ulcer - AllergyCodeine: Allergy - Onset Date [id number]: Allergy - Onset Date 8539-10-03uhpAYGodp HCl: headache - Side Effects - Onset Date 01/23/2021no[Allergies Verified] Objective: * Vitals: M A: VKeen, BP: 112/62 mm Hg, Wt: 143.4 lbs, Ht: 61 in, BMI: 27.09 Index, HR: 85 /min, RR: 18 /min, Oxygen sat %: 98 %, Ht-cm: 154.94 cm, Wt-k.05 kg. * P ast Orders: L ab:Vitamin B12 (Order Date - 01/26/2024) (Collection Date & Time - 02/08/2024 12:28 PM) Value Reference Range Vitamin B12 511 298-5246 - pg/mL * Examination: G eneral Examination: GENERAL APPEARANCE: w ell nourished, well developed, in no acute distress,, tired appearing. HEAD: n ormocephalic, atraumatic. EYES: B OTH EYES , sclera anicteric , upper eyelids normal , lower eyelids normal. EARS: b ilateral external unremarkable, auditory canal clear. NOSE: e xternal unremarkable . ORAL CAVITY: m ucosa moist, no lesions, tongue in midline.? THROAT: n ormal, no exudate. NECK/THYROID: n all supple ,. LYMPH NODES: n o cervical adenopathy. SKIN: w arm and dry ,. HEART: S1, S2 normal , occasional extrasystole. LUNGS: b ilateral air entry noted, ,, rhonchi occassional.? MUSCULOSKELETAL: g ait slowed, t enderness noted multiple spots, , hip tenderness in the left hip. EXTREMITIES: t race edema. PERIPHERAL PULSES: s lightly faint. NEUROLOGIC: a ble to move all 4 extremities. PSYCH: a wake, , cooperative with exam. ? Assessment: * Assessment: 1. S yncope, unspecified syncope type - R55 (Primary) 2 . A nemia, unspecified - D64.9 3 . L ow serum potassium - E87.6 4 . B 12 deficiency - E53.8 5 . L eft hip pain - M25.552 6 . H ospital discharge follow-up - Z09 Plan: * Treatment: 2. A nemia, unspecified L AB: Ferritin, Serum (Collection Date & Time - 06/30/2024 05:13 PM) Value Reference Range F erritin, Serum 68 16-288 - ng/mL ?LAB: IRON, TOTAL (Collection Date & Time - 06/30/2024 05:13 PM)* Value Reference Range I trace, Serum 30 L 45-160 - mcg/dL ?LAB: VITAMIN B12/FOLATE, SERUM PANEL (Collection Date & Time - 06/30/2024 05:13 PM)* Value Reference Range F OLATE, SERUM 6.3 - ng/mL * V ITAMIN B12 389 842-5038 - pg/mL ?LAB: CBC/Diff Ambiguous Default (Collection Date & Time - 06/30/2024 05:13 PM)* Value Reference Range W BC 6.5 3.8-10.8 - Thousand/ uL * R BC 3.72 L 3.80-5.10 - Million/ uL * H emoglobin 10.8 L 11.7-15.5 - g/dL * H ematocrit 35.1 35.0-45.0 - % * M CV 94.4 80.0-100.0 - fL * M CH 29.0 27.0-33.0 - pg * M CHC 30.8 L 32.0-36.0 - g/dL * R DW 12.8 11.0-15.0 - % * P latelets 358 140-400 - Thousand/u L * N eutrophils 55.1 - % * L ymphs 31.3 - % * M onocytes 8.7 - % * E os 4.1 - % * B asos 0.8 - % * N eutrophils (Absolute) 3582 1522-3830 - cells/ uL * L ymphs (Absolute) 2035 850-3900 - cells/uL * M onocytes(Absolute) 566 200-950 - cells/uL * E os (Absolute) 267 15-500 - cells/uL * B aso (Absolute) 52 0-200 - cells/uL * M PV 10.2 7.5-12.5 - fL Notes: Recommendations include: laboratory monitoring and treatment adherance. ??3.?Low serum potassium?LAB: Comp. Metabolic Panel (14) Notes: Will repeat K.??4.?B12 deficiency?LAB: VITAMIN B12/FOLATE, SERUM PANEL (Collection Date & Time - 06/30/2024 05:13 PM)* Value Reference Range F OLATE, SERUM 6.3 - ng/mL * V ITAMIN B12 350 387-4377 - pg/mL Notes: Balanced diet, supplement and repeat test and watch for b12 def symptoms.??5.?Left hip pain? Notes: Mobilize each joint/muscle gently, Regular exercise and a healthy diet, calcium and vitamin D supplement. Use heat or ice cold pack to ease pain Tyelnol, NSAIDS explained, also topical meds like Aspercreametc.??6.?Hospital discharge follow-up? Notes: Hospital record reviewed with pt and med reconciliation was completed.?? 7.?Others? Notes: RECOMMENDATIONS given include: routine exercise ,balanced diet and watch for neuropathy symptoms .?? * Procedures: S beatriz Lopez MD . * Labs: * L ab: COMPREHENSIVE METABOLIC PANEL (Collection Date & Time - 06/30/2024 05:13 PM) Value Reference Range G LUCOSE 105 H 65-99 - mg/dL * U BHARATHI NITROGEN (BUN) 8 7-25 - mg/dL * C REATININE 0.64 0.60-1.00 - mg/dL * B UN/CREATININE RATIO SEE NOTE: 6-22 - (calc) * S ODIUM 140 135-146 - mmol/L * P OTASSIUM 4.3 3.5-5.3 - mmol/L * C HLORIDE 105 98-110 - mmol/L * C ARBON DIOXIDE 22 20-32 - mmol/L * C ALCIUM 8.5 L 8.6-10.4 - mg/dL * P ROTEIN, TOTAL 5.8 L 6.1-8.1 - g/dL * A LBUMIN 3.6 3.6-5.1 - g/dL * G LOBULIN 2.2 1.9-3.7 - g/dL (calc ) * A LBUMIN/GLOBULIN RATIO 1.6 1.0-2.5 - (calc) * B ILIRUBIN, TOTAL 0.3 0.2-1.2 - mg/dL * A LKALINE PHOSPHATASE 117 37-153 - U/L * A ST 15 10-35 - U/L * A LT 5 L 6-29 - U/L * E GFR 92 > OR = 60 - mL/min/1 .73m2 * eclSqeeqee, support 06/08 07:45:14 : This order was created by the Interface. * Procedure Codes: 1 111F DSCHRG MED/CURRENT MED MERGE * Follow Up: a fter lab * Billing Information: * Visit Code: 30427 [facility] 7 DAY DISCH. * Procedure Codes: 1111F DSCHRG MED/CURRENT MED MERGE. * Sign off status: Completed true * Provider: HILARIO Jurado Date: 0 06/30/2024 Generated for Antonio maynard/Akira/Solis on: 0 08/25/2024 12:24 PM EDT History and Physical Notes * HPI (History of Present Illness) Category Sub-Category Detail Notes Category Not es Interim History [facility] &, @ [facility] admitting diagnosis:: Primary osteoarthr itis of left hip/ Near syncope/ Critical illness myopathy/ Asthenia/ Hypokalemia/ Diarrhea Inpatient Discharge: This office visit i s within 14 days of discharge: Yes [facility] Date of admission to hospital:: 06/19/2024 & 06/07/2024 Date of discharge from hospi nuha:: 06/23/2024 & 06/08/2024 Discharge medications review ed and reconciled from hospital:: (1111F) Medications changed (e.g. discontinued, changed or added) Changes include: discontinue, decrease Discontinue:: *stopped but not on our list* Metoprolol Succinate 25mg, Medical Marijuana, Oxycodone 5-325mg & Tramadol 50mg Decrease:: Gabapentin 300mg 1tab, by mouth, once a day (START 06/23/2024)/ WAS 300mg 3tabs, once a day Laboratory results:: Results of clinical test reviewed and discussed with patient. Radiology results:: Results of radiology tests reviewed and discussed with patient Procedures:: Procedural test s and medication related tests reviewed and discussed with patient. Vitamin B Deficiency Patient presents with vitamin B d eficiency . Associated symptoms include fatigue Prior work-up includes laboratory testin g, B-12 level 461 performed on 06/30/24. pt reports taking injection herself once a month. 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 Annalisa BOLDEN Phone Assessment - Outreach Interaction: ---MEDICATION CHECK---: All medications that are current on patients list match the hospital list and were reconciled with the hospital list, Medications on the hospital list but not on ours are: Calcium 500 & Dpo 500mg 1tab, by mouth, twice a day & Raloxifene 60mg 1tab, by mouth, once a day, Differences: Ranolazine: hospital has 500mg/ WE have 1000mg & Venlafaxine: hospital has 37.5mg/ WE have 75mg, All medications marked unknown are not on the hospital list and need to be covered with the patient Examination Category Sub-Category Detail Notes Category Not es General Examination GENERAL APPEARANCE: well nou rished, well developed, in no acute distress,, tired appearing HEAD: normocephalic, atrau matic EYES: BOTH EYES , sclera a nicteric , upper eyelids normal , lower eyelids normal EARS: bilateral external u nremarkable, auditory canal clear NOSE: external unremarkabl e THROAT: normal, no exudate NECK/THYROID: neck supple , HEART: S1, S2 normal , occa sional extrasystole LUNGS: bilateral air entry noted, ,, rhonchi occassional NEUROLOGIC: able to move all 4 e xtremities SKIN: warm and dry , EXTREMITIES: trace edema PERIPHERAL PULSES: slightly faint MUSCULOSKELETAL: gait slowed, tendern ess noted multiple spots, , hip tenderness in the left hip LYMPH NODES: no cervical adenopat hy PSYCH: awake, , cooperative with exam ORAL CAVITY: mucosa moist, no les ions, tongue in midline
--- OUTSIDE RECORDS SUMMARY | 2024-07-04 10:15 | XMS_ITS ---
Author Organization [facility] [place] Address [address] [address] [address] [place] [address] Care Team Providers Care Medication Coordinator Name Role Phone Fran Hamilton Primary Care Provider Adi Hayes Unavailable [phone] Faby Bonilla Unavailable [phone] REASON FOR VISIT LTHA, AVENIR Encounters Encounter Location Date Provider Diagnosis [facility] [place] [address] [address] 07/04/2024 Faby Bonilla Plan Of Treatment Next Appt Details Provider Name:Faby Bonilla, 01/18/2025 10:00:00 AM, [address] [address], [place], [address], Progress Notes * SANDRADagmar MENDES GDOB: [birth year] (74 yo F)Acc No.[id number]:07/04/2024 Progress Note Patient: Dagmar TORRES Provider: Scott Bonilla APRN, FNP-C :1950 A ge:74 Y S ex:Female Date:07/04/2024 Address:[address] , [address], [place], [id number] Pcp:Fran Hamilton Subjective: * Chief Complaints: * 1 . LTHA, AVENIR. * Medical History: Objective: * Vitals: Assessment: Plan: * Treatment: * Billing Information: * Visit Code: * Procedure Codes: * Electronic signature of NAV Lux on 08/25/2024 at 12:24 PM EDT Sign off status: Pending * Provider: Scott Bonilla APRN, FNP-C Date: 0 07/04/2024 Generated for Antonio maynard/Akira/Solis on: 0 08/25/2024 12:24 PM EDT
--- OUTSIDE RECORDS SUMMARY | 2024-07-11 15:35 | XMS_ITS | Encounter Summary ---
Author Organization Healthcare Address [address] [place] [address] Care Team Providers Care Animal Laboratory Technician Name Role Phone Charles Barrett MD Primary Care Provider [phone]- [phone] Encounter Details Date Type Department Care Team (Latest Contact Info) Description 07/11/2024 3:35 PM EDT - 07/11/2024 11:59 PM EDT Hospital Encounter Cardiac Imaging [address] [place] [address] Pacemaker Discharge Disposition: Home or Self Care Social History Tobacco Use Types Packs/Day Years Used Date Smoking Tobacco: Never Passive Smoke Exposure: Never Smokeless Tobacco: Never Alcohol Use Standard Drinks/Week Comments Yes 2 (1 standard drink = 0.6 oz pur e alcohol) social Humiliation, Afraid, Rape, and Kick questionnair e Answer Date Recorded Within the last year, have y ou been afraid of your partner or ex-partner? No 11/23/2023 Within the last year, have y ou been humiliated or emotionally abused in other ways by your partner or ex-partner? No Within the last year, have y ou been kicked, hit, slapped, or otherwise physically hurt by your partner or ex-partner? No 11/23/2023 Within the last year, have y ou been raped or forced to have any kind of sexual activity by your partner or ex-partner? No 11/23/2023 Social Connection and Isolation Panel Answer Date Recorded In a typical week, how many times do you talk on the phone with family, friends, or neighbors? More than three times a week 11/25/2023 How often do you get togethe r with friends or relatives? More than three times a week 11/25/2023 How often do you attend chur ch or bahai services? More than 4 times per year 11/25/2023 Do you belong to any clubs o r organizations such as yazidi groups, unions, fraternal or athletic groups, or school groups? Yes 11/25/2023 How often do you attend meet ings of the clubs or organizations you belong to? More than 4 times per year 11/25/2023 Are you , , di vorced, , never , or living with a partner? 11/25/2023 PHQ-2 Answer Date Recorded Patient Health Questionnaire-2 Score 0 01/07/2024 Hunger Vital Sign Answer Date Recorded Within the past 12 months, y ou worried that your food would run out before you got the money to buy more. Never true 11/23/19 24 Within the past 12 months, t he food you bought just didn't last and you didn't have money to get more. Never true 11/23/2023 PRAPARE - Transportation Answer Date Re corded In the past 12 months, has l ack of transportation kept you from medical appointments or from getting medications? No 11/07 In the past 12 months, has l ack of transportation kept you from meetings, work, or from getting things needed for daily living? No 11/23/2023 Housing Stability Vital Sign Answer Rosalio e Recorded In the last 12 months, was t here a time when you were not able to pay the mortgage or rent on time? No 11/23/2023 Number of Places Lived in the Last Year Not on f ile 11/23/2023 In the last 12 months, was t here a time when you did not have a steady place to sleep or slept in a nursing home (including now)? No 11/23/2023 Utilities Answer Date Recorded In the past 12 months has th e electric, gas, oil, or water company threatened to shut off services in your home? No 11/23/2023 Comments Unknown Sex and Gender Information Value Date Recorded Sex Assigned at Not on file Legal Sex Female 7:48 PM EDT Gender Identity Not on file Sexual Orientation Not on file documented as of this encounter Medications at Time of Discharge acetaminophen (Tylenol) 500 MG tablet Take 2 tablets (1,000 mg) by mouth every 6 (six) hours if needed for pain (arthritis). albuterol 108 (90 Base) MCG/ACT inhaler Inhale 2 puffs 4 (four) times a day if needed for wheezing. atorvastatin (Lipitor) 40 MG tablet 1 tablet (40 mg) 1 (one) time each day. 08/20/2021 cyanocobalamin (Vitamin B-12) 1000 MCG tablet Take 1 tablet (1,000 mcg) by mouth 1 (one) time each day. Eliquis 5 MG tablet Take 1 tablet (5 mg) by mouth 2 (two) times a day. You may resume this med in 48 hrs, or 11/15/2022 in the pm 11/13/2022 gabapentin (Neurontin) 300 MG capsule Take 3 capsules (900 mg) by mouth every night. 07/29/2021 ipratropium-albu terol (Duo-Neb) 0.5-2.5 mg/3 mL nebulizer solution Take 3 mL by nebulization if needed for shortness of breath. 07/31/2021 levETIRAcetam (Keppra) 500 MG tablet Take by mouth 2 (two) times a day. lidocaine (Lidoderm) 5 % patch Apply 1 patch topically daily. 12/14/2023 Melatonin 10 MG tablet Take 10 mg by mouth 1 (one) time each day. metoprolol succinate XL (Toprol-XL) 25 MG 24 hr tablet TAKE 1 TABLET BY MOUTH DAILY. -- DO NOT CHEW, CRUSH, OR SPLIT 90 tablet 3 02/15/2024 metoprolol tartrate (Lopressor) 25 MG tablet Take 1 tablet by mouth 2 times a day. 02/15/2024 midodrine (Proamatine) 5 MG tablet Take 1 tablet (5 mg) by mouth 1 (one) time each day. montelukast (Singulair) 10 MG tablet Take 1 tablet (10 mg) by mouth every night. nitroglycerin (Nitrostat) 0.4 MG SL tablet DISSOLVE ONE TABLET UNDER THE TONGUE EVERY 5 MINUTES NEEDED FOR CHEST PAIN. DO NOT EXCEED A TOTAL OF 3 DOSES IN 15 MINUTES 10/08/2020 omeprazole (PriLOSEC) [address] capsule Take 1 capsule (40 mg) by mouth 1 (one) time each day. Do not crush or chew. ondansetron (Zofran) 4 MG tablet Take 1 tablet by mouth every 6 hours. 06/24/2024 raloxifene (Evista) 60 MG tablet Take 1 tablet (60 mg) by mouth every night. ranolazine (Ranexa) 500 MG 12 hr tablet Take 1 tablet (500 mg) by mouth 2 (two) times a day. Do not crush, chew, or split. 180 tablet 3 01/07/2024 thiamine (vitamin B-1) 250 MG tablet Take 1 tablet (250 mg) by mouth 1 (one) time each day. Trelegy Ellipta 200-62.5-25 MCG/ACT aerosol powder Inhale 1 puff 1 (one) time each day. Rinse mouth after each use for 90 days 04/02/2023 venlafaxine (Effexor) 37.5 MG tablet Take 1 tablet (37.5 mg) by mouth 1 (one) time each day. zolpidem (Ambien) 10 MG tablet Take 0.5 tablets (5 mg) by mouth at night if needed for sleep. traMADol (Ultram) 50 MG tablet Take 1 tablet by mouth every 6 hours as needed. 06/24/2024 documented as of this encounter Plan of Treatment Upcoming Encounters Date Type Department Care Team (Late st Contact Info) Description 11/23/2024 11:40 AM EDT Office Visit [facility] [address] [facility] [phone] Indu Grimes MD [address] [place] [address] 12/08/2024 9:40 AM EDT Office Visit [facility] [address] [facility] [phone] Sylvester Farr MD [address] [place] [phone] documented as of this encounter Procedures Procedure Name Priority Date/Time Associated Diagnosis Comments CARDIAC DEVICE CHECK - REMOTE - PACEMAKER Routine 07/11/2024 3:46 PM EDT Pacemaker documented in this encounter Results * CARDIAC DEVICE CHECK - REMOTE - PACEMAKER (07/11/2024 3:46 PM EDT) Anatomical Region Laterality Modality Other Narrative 07/11/2024 3:51 PM EDT [facility] Remote CIED Report Name: Dagmar Flores Date: 07/11/2024 : 1950 Age: 74 y.o. Reporting period: Reporting period is the last 91 days, with at least 30 days of remote monitoring. Interim reports, if any, reviewed and addressed previously; see remote alert entries for more details. Most recent report, dated 07/11/2024, analysis and summary as follows: Device: Tsroud dual chamber pacemaker Permanent Programming Mode : DDDR LRL: 70 bpm MTR: 120 bpm Available measurements within normal limits. (See vendor report in Media for further details) Pacing Percentage: Atrial: 71 % Ventriclar: 99 % Battery: Service time remainin.7-7.3 years Presenting rhythm: Presenting rhythm is atrial paced with ventricular paced response. Evaluation: Demonstrates appropriate sensing: Yes Demonstrates pacing capture: Yes Arrhythmias: No new arrhythmia of significance since last CIED evaluation. Summary: CIED functioning as expected, with given programming and data. See copy of vendor report in Media us Elyssa Chavez Pb DIOR CV IMPLANTABLE CARDIAC DEV ICE PROCEDURES Final Result documented in this encounter Visit Diagnoses Diagnosis Pacemaker Cardiac pacemaker in situ documented in this encounter Additional Health Concerns Assessment Noted Time A fall risk assessment has been complete d for the patient 01/07/2024 11:10 AM EDT A Body Mass Index follow-up plan has been documented for the patient 01/07/2024 11:52 AM EDT documented as of this encounter Care Teams Animal Laboratory Technician Relationship Specialty Start Date End Date Charles Barrett MD [address] [place] [address] PCP - General 09/11/21 documented as of this encounter
--- OUTSIDE RECORDS SUMMARY | 2024-07-15 07:15 | XMS_ITS ---
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 Name Role Phone Fran Hamilton Primary Care Provider Adi Hayes Unavailable [phone] Faby Bonilla Unavailable [phone] Allergies Allergen (clinical drug ingredient) Drug/Non Drug Allergy documented on EMR Reaction Allergy Type Onset Date Status hydromorphone Dilaudid Unknown Drug Allergy Act lico codeine Codeine Unknown Drug Allergy Active REASON FOR VISIT This patient presents today for follow up of LTHA AVENIR 06/07/24, Xray done at [facility] on 07/13/24 Medications Medication SIG (Take, Route, Frequency, Duration) Notes Start Date End Date Status ALPRAZolam 0.25 MG TAKE 1 TABLET TWICE A DAY NEEDED FOR 10 DAYS Oral for 10 Days Active Amoxicillin 500 MG 4 capsules Orally 1 hour prior to dental appt 05/23/2024 Active traMADol HCl 50 MG 1-2 tabs Orally every 6 hours for 7 days As needed for pain, acute [...] 07/15/2024 Encounters Encounter Location Date Provider Diagnosis [facility] [place] [address] [address] 07/15/2024 Faby Bonilla Unilateral primary osteoarthritis, left [...] Reason: Provider Name:Faby Bonilla, 01/18/2025 10:00:00 AM, [address] [address], [place], [address], Progress Notes * Dagmar FLORES GDOB: [birth year] (74 yo F)Acc No.[id number]:07/15/2024 Progress Note Patient: Dagmar TORRES Provider: Scott Bonilla APRN, FNP-C :1950 A ge:74 Y S ex:Female Date:07/15/2024 Address:[address] [place] [address] , [address], [facility] Pcp:Fran Hamilton Subjective: * Chief Complaints: * T his patient presents today for follow up of LTHA AVENIR 06/07/24Xray done at [facility] on 07/13/24 * HPI: D epression Screening: [...] Joint motion is better. A mbulates with Nanad ane. P ain Medication D ecreasing. P [...] reconciled with the patient * Allergies: C odeineDilaudidno[Allergies Verified] Objective: * Vitals: H t: 61 [...] Xray * Billing Information: * Visit Code: [id number] Postop visit. * Procedure Codes: * Sign off status: Completed true * Provider: Scott Bonilla APRN, FNP-Nanda Date: 0 07/15/2024 Generated for Antonio Romo/Mariitting on: 0 08/25/2024 12:24 PM EDT History [...]
--- OUTSIDE RECORDS SUMMARY | 2024-07-18 12:40 | XMS_ITS ---
Author Organization [facility] Address [address] [place] [address] Care Team Providers Care Retail Presentation Specialist Name Role Phone MAX HAMILTON Primary Care Provider [phone] Kolton Vazquez Unavailable [phone] Allergies Allergen (clinical drug ingredient) Drug/Non Drug Allergy documented on EMR Reaction Allergy Type Onset Date Status Aspirin (ASA) Gastric ulcer Drug Allergy Active Codeine Unknown Drug Allergy 04/25/2005 Active hydromorphone Dilaudid Unknown Drug Allergy 04/25/2005 Ac tive trazodone traZODone HCl headache Drug Allergy 01/23/2021 Ac tive REASON FOR VISIT CAD, HTN, dyslipidemia, DM2, iron deficiency anemia, depression Medications Medication SIG (Take, Route, Frequency, Duration) Notes Start Date End Date Status Metoprolol Tartrate 25 MG 1 tablet with food Orally once a day at bedtime for 90 days Active Keppra 500 MG 1 tablet Orally every 12 hrs for 90 days Active Gabapentin 300 MG TAKE 1 CAPSULE EVERY MORNING AND TAKE 3 CAPSULES AT BEDTIME for 90 days Active Eliquis 5 MG Take 1 tablet Orally Twice a day for 90 days Active Effexor XR 75 MG 1 capsule with food Oral Once a day for 90 days Active Albuterol Sulfate HFA 108 (90 Base) MCG/ACT 1 puff as needed Inhalation every 4-6 hours Active Albuterol Sulfate 1.25 MG/3ML 3 ml as needed Inhalation Three times a day dx j44.9 for 90 days Active Ranolazine ER 500 MG 1 tablet Orally Twice a day Active Cyanocobalamin 1000 MCG/ML 1,000mcg / 1cc q month Injection once a month for 90 days Active Atorvastatin Calcium 40 MG 1 tablet Orally every night for 90 days Active BD Syringe/Needle 25G X 5/8 1 ML use one per month for B-12 injections for 90 days please dispense the one that is available for patient. Amytristanu 06/30/2024 Active Vitamin B-6 100 MG 1 tablet Orally Once a day Unknown Vitamin B-1 100 MG 1 tablet Orally Once a day Unknown traMADol HCl 50 MG 1 tablet as needed ACUTE PAIN EXCEPTION Orally Two times a day for 10 days PRN 06/02/2023 Unknown Sucralfate 1 GM 1 tablet on an empty stomach Oral Twice a day for 30 days 03/14/2024 Unknown Trelegy Ellipta 200-62.5-25 MCG/ACT Inhale 1 puff by mouth once daily. Rinse mouth after each use for 30 days Active Omeprazole 40 MG 1 capsule Orally twice a day for 30 days 06/14/2020 Active Flonase Allergy Relief 50 MCG/ACT 1 spray in each nostril Nasally Twice a day for 30 days 05/09/2024 Unknown ARIPiprazole 20 MG 1 tablet Orally Once a day for 30 days 05/02/2024 Unknown ALPRAZolam 0.25 MG 1 tablet Orally Twice a day for 10 days As needed 05/02/2024 Unknown Montelukast Sodium 10 MG Take 1 tablet by mouth once daily for 90 days Active Midodrine HCl 5 MG 1 tablet at 7 am 1 tablet at 11 am Orally for 30 days As needed Active Social History Sex Assigned At : Social History Observation Description Sex Assigned At Female Problems Problem Type SNOMED Code ICD Code Onset Dates Problem Status W/U Status Risk Notes Problem 32525283 Iron deficiency anemia, unspecified iron deficiency anemia type (D50.9) Active confirmed Vital Signs Blood pressure systolic 108 mm Hg 07/19/19 25 Blood pressure diastolic 64 mm Hg 025 Heart Rate 90 /min 07/18/2024 Respiratory Rate 18 /min 07/18/2024 Height 61 in 07/18/2024 Weight 138.2 lbs 07/18/2024 BMI 26.11 kg/m2 07/18/2024 Oximetry 95 % 07/18/2024 Encounters Encounter Location Date Provider Diagnosis [facility] [address] [place] [address] 07/18/2024 Kolton Vazquez Essential (primary) hypertension I10 ; Atherosclerotic heart disease of [place] coronary artery with other forms of angina pectoris I25.118 ; Dyslipidemia E78.5 ; Type 2 diabetes mellitus with other specified complication, without long-term current use of insulin E11.69 ; Iron deficiency anemia, unspecified iron deficiency anemia type D50.9 and Major depressive disorder, recurrent, moderate F33.1 Assessments Encounter Date Diagnosis (ICD Code) Assessment Notes Treatment Notes Treatment Clinical Notes Section Notes 07/18/2024 Essential (primary) hypertension (ICD-10 - I10) Counselled on Achieve target BP ,lifestyle changes, balanced sleep, stress, low impact exercise, DASH diet. 07/18/2024 Atherosclerotic heart disease of [place] coronary artery with other forms of angina pectoris (ICD-10 - I25.118) 07/18/2024 Dyslipidemia (ICD-10 - E78.5) Counseled on diet and exercise., target lipid levels Compliance with treatment regimen,, daily excercise low impact option of DASH / mediterranean diet explained 07/18/2024 Type 2 diabetes mellitus with other specified complication, without long-term current use of insulin (ICD-10 - E11.69) Explained relation between diabetes and CV disease, retinopathy, nephropathy, and neuropathy. try to keep A1c on target , Home blood glucose monitoring t include pre-meal, and post-meal glucose (140-160 mg/dL). need for yearly flu shots, diabetic foot exam, diabetic eye exam, daily foot self-inspection. Educated regarding compliance with treatment hypoglycemia prevention, and use of aspirin, JUS inhibitor, and statin role explained. 07/18/2024 Iron deficiency anemia, unspecified iron deficiency anemia type (ICD-10 - D50.9) Counselled on Monitor labs and supplement with OTC iron /Vitamin C/B12/ folate, stay updated with cancer screening . 07/18/2024 Major depressive disorder, recurrent, moderate (ICD-10 - F33.1) Counselled on lifestyle modification , balance diet, sleep, low impact exercise, avoidance of stimulants, stress reduction with reduce stress-full situations. 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 Dyslipidemia Counseled on diet an d exercise., target lipid levels Compliance with treatment regimen,, daily excercise low impact option of DASH / mediterranean diet explained Type 2 diabetes mellitus wit h other specified complication, without long-term current use of insulin Explained relation between diabetes and CV disease, retinopathy, nephropathy, and neuropathy. try to keep A1c on target , Home blood glucose monitoring t include pre-meal, and post-meal glucose (140-160 mg/dL). need for yearly flu shots, diabetic foot exam, diabetic eye exam, daily foot self-inspection. Educated regarding compliance with treatment hypoglycemia prevention, and use of aspirin, JUS inhibitor, and statin role explained. Iron deficiency anemia, unsp ecified iron deficiency anemia type Counselled on Monitor labs and supplemen t with OTC iron /Vitamin C/B12/ folate, stay updated with cancer screening . Major depressive disorder, r ecurrent, moderate Counselled on lifestyle modification , balance diet, sleep, low impact exercise, avoidance of stimulants, stress reduction with reduce stress-full situations. Future Test Test Name Order Date Hemoglobin A1c 01/09/2025 Microalb/Creat Ratio, Randm Ur Lipid Panel 01/09/2025 Comp. Metabolic Panel (14) 01/09/2025 URINALYSIS, COMPLETE 01/09/2025 CBC/Diff Ambiguous Default 01/09/2025 Next Appt Details Follow Up: In December, Len n: Provider Name:MAX HAMILTON, 01/18/2025 08:30:00 AM, [address] [place] [address], [phone], Provider Name:Kolton Vazquez, 04:40:00 PM, [address] [place] [address], [phone], Provider Name:Girma nance, 05/29/2025 01:50:00 PM, [address] [place] [address], [phone], Progress Notes * IDA MOTLEY GDOB: [birth year] (74 yo F)Acc No.[id number]:07/18/2024 Progress Notes Patient: Scott IDA ROMEO Provider: Molly Vazquez APRN :1950 A ge:74 Y S ex:Female Date:07/18/2024 Address:[address] [place] [address] , [address], [id number] Pcp:MAX HAMILTON Structured Data:Seasonal : Y es; How did you hear about our practice? : Established patient Subjective: * Chief Complaints: * 1 . CAD, HTN, dyslipidemia, DM2, iron deficiency anemia, depression. * HPI: Olegario miller presents for: CAD, CT abdomen and pelvis on 04/06/2018 shows coronary artery calcification. Patient had stress test on 06/26/2023 shows no evidence of ischemia or infarct. Echo done on 06/25/2023 shows EF 65 to 70%. Patient has occasional chest pressure symptoms without significant ONEAL. Current medication include ranolazine, atorvastatin, antianginal metoprolol. HTN, patient currently on metoprolol, without any side effects patient compliant with medication blood pressure today 108/64 Dyslipidemia, patient currently on atorvastatin without any side effects patient is compliant with the medication previous total cholesterol 174, HDL 74, triglyceride 110, LDL 79 on 01/19/2024 DM2, patient denies any polyuria, polydipsia, blurry vision or hypoglycemic events A1c was 6.4 on 01/18/2024. Patient currently not on any hypoglycemic agents choose lifestyle modification. Patient does not check blood sugars on daily basis. Iron deficiency anemia, patient denies any abdominal pain, nausea vomiting, hematuria, hematochezia recent most hemoglobin levels 10.8 previously 11.4/10.5, iron panel done recently which shows iron 30, ferritin 68. Patient has colonoscopy performed on 09/06/2018. Patient offered iron infusions states she will be leaving for [place] next week and come back in December. Patient states she will tell her primary care in [place] about iron infusions. Major depression moderate, patient was managing with multiple medication Abilify, Effexor now only taking Effexor states her mood is getting better, no feeling down she would like to continue Effexor only. Patient denies any suicidal homicidal ideation present in the room, patient is leaving for [place] next week, she will come back in December. * ROS: G eneral/Constitutional: Patient denies f ever , fatigue , chills. A llergy/Immunology: Patient denies h rosalba , seasonal allergies. ? O phthalmologic: Patient denies b lurry vision , double vision , eye pain.? E NT: Patient denies d ecreased hearing , ear pain , sore throat.? E ndocrine: SEE H PI. R espiratory: Patient denies c ough , hemoptysis , shortness of breath.? C ardiovascular: SEE H PI. G astrointestinal: Patient denies a bdominal pain , diarrhea , nausea , vomiting. H ematology: SEE H PI. G enitourinary: Patient denies f requent urination , painful urination.? M usculoskeletal: Patient denies a rthritis\arthralgia , joint stiffness , muscle aches. S kin: Patient denies d ry skin , rash , itching. N eurologic: Patient denies d izziness , loss of strength. ? P sychiatric: SEE H PI. * Medical History: B ariatric surgery status (resolved 10/15/2022), ASVD aorta chest x-ray 03/23/2023, PFT 03/18/2023 FEV1 111, FEV1/FVC ratio 97, FEF 25 and 75 is 111, reversibility 16% FVC, FEV1 is 17% reversible, FEF reversibility 22%, DLCO 85, CHF stage I diastolic dysfunction EF is 60-65% 2D echo mild TR, PAD ultrasound 03/26/2021 NEGRO right 1.0 left 1.0 ASVD with slight abnormal waveform, PFT 03/18/2023 FEV1 111, FEV1/FVC ratio 97, FEF 25 to 75% is 111, reversibility 17% FEV1 and 16% FVC, DLCO 85%, CTA chest 03/30/2023 ASVD aorta otherwise unremarkable, DEXA scan 03/29/2023 T-score hip -1.5 FRAX score hip 3.0 and major fracture 13%, spine -0.6 L1 osteopenia, CHF 2D echo stage I diastolic dysfunction 03/13/2023 EF is low normal 50-55%, Hypertensive cardiomegaly moderately dilated left ventricle 2D echo 03/13/2023, Acquired absence of cervix with remaining uterus (resolved 02/04/2016) CXR ASVDa., [id number] 7, Alcohol use -patient has 3 or more drinks of wine almost on a daily basis. * Surgical History: A rthroscopy: Left knee 2003, Breast Biopsy , Hysterectomy Partial (ovaries remaining) 1986, Liyah Fundoplasty 1996, Pacemaker Implantation ([facility])- , Gastroplasty 1985, Eusebia en Y gastric bypass , Bilateral upper lid lift 05/10/2021, Total Knee Replacement-right 05/27/2022, knee revision 04/21/23, left hip replacement 06/07/2024. * Hospitalization/Major Diagno stic Procedure: H ysterectomy 1986, Right knee replacement 07/21/2017, pt passed out 10/09/20- 10/11/20, melanoma removed from arm 02/17/2022, DX fall @ [facility] ER VISIT 12/30/2023, DX lt hip pain @ [facility] 06/07/2024-06/08/2024, DX syncope @ [facility] 06/19/2024-06/23/2024. * Family History: Positive for Coronary Artery Disease ( father; mother ). Positive for Breast Cancer ( mat. GM ) and Cervical Cancer ( sister ). Negative for Colon Cancer or Ovarian Cancer. 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 M ore than 4 times per year D o you belong to any clubs or organizations??Yes T otal Social Isolation Score (NHANES): 0 Specialist ([place] [facility]) D ermatologist S un[place] * Medications: T aking BD Syringe/Needle 25G X 5/8 1 ML Miscellaneous use one per month for B-12 injections , Notes to Pharmacist: please dispense the one that is available for patient. Thankyou, Taking Ranolazine ER 500 MG Tablet Extended Release 12 Hour 1 tablet Orally Twice a day , Taking Albuterol Sulfate 1.25 MG/3ML Nebulization Solution 3 ml as needed Inhalation Three times a day dx j44.9 , Taking Albuterol Sulfate HFA 108 (90 Base) MCG/ACT Aerosol Solution 1 puff as needed Inhalation every 4-6 hours , Taking Atorvastatin Calcium 40 MG Tablet 1 tablet Orally every night , Taking Cyanocobalamin 1000 MCG/ML Solution 1,000mcg / 1cc q month Injection once a month , Taking Effexor XR 75 MG Capsule Extended Release 24 Hour 1 capsule with food Oral Once a day , Taking Eliquis 5 MG Tablet Take 1 tablet Orally Twice a day , Taking Gabapentin 300 MG Capsule TAKE 1 CAPSULE EVERY MORNING AND TAKE 3 CAPSULES AT BEDTIME , Taking Keppra 500 MG Tablet 1 tablet Orally every 12 hrs , Taking Metoprolol Tartrate 25 MG Tablet 1 tablet with food Orally once a day at bedtime , Taking Midodrine HCl 5 MG Tablet 1 tablet at 7 am 1 tablet at 11 am Orally As needed, Taking Montelukast Sodium 10 MG Tablet Take 1 tablet by mouth once daily , Taking Omeprazole 40 MG Capsule Delayed Release 1 capsule Orally twice a day , Taking Trelegy Ellipta 200-62.5-25 MCG/ACT Aerosol Powder Breath Activated Inhale 1 puff by mouth once daily. Rinse mouth after each use , Unknown ALPRAZolam 0.25 MG Tablet 1 tablet Orally Twice a day As needed, Unknown ARIPiprazole 20 MG Tablet 1 tablet Orally Once a day , Unknown Flonase Allergy Relief 50 MCG/ACT Suspension 1 spray in each nostril Nasally Twice a day , Unknown Sucralfate 1 GM Tablet 1 tablet on an empty stomach Oral Twice a day , Unknown traMADol HCl 50 MG Tablet 1 tablet as needed ACUTE PAIN EXCEPTION Orally Two times a day , Notes to Pharmacist: PRN, Unknown Vitamin B-1 100 MG Tablet 1 tablet Orally Once a day , Unknown Vitamin B-6 100 MG Tablet 1 tablet Orally Once a day , Medication List reviewed and reconciled with the patient * Allergies: A spirin (ASA): Gastric ulcer - Allergy, Codeine: Allergy - Onset Date 2005-04-25, Dilaudid: Allergy - Onset Date 2005-04-25, traZODone HCl: headache - Side Effects - Onset Date 01/23/2021. Objective: * Vitals: M A: JN, BP: 108/64 mm Hg, Wt: 138.2 lbs, Ht: 61 in, BMI: 26.11 Index, HR: 90 /min, RR: 18 /min, Oxygen sat %: 95 %, Ht-cm: 154.94 cm, Wt-k.69 kg. * P ast Orders: Lab:Ferritin, Serum * Collection Date 06/30/2024 02/08/2024 01/31/2019 Collection Time 05:13 PM 12:28 PM Order Date 06/30/2024 01/26/2024 01/28/2019 Ferritin, Serum 68 (Ref Range: 16-288 ng/mL) 25 (Ref Range: 16-288 ng/mL) NR * Lab:IRON, TOTAL * Collection Date 06/30/2024 02/08/2024 01/31/2019 Collection Time 05:13 PM 12:25 PM Order Date 06/30/2024 01/26/2024 01/28/2019 Iron, Serum 30 L (Ref Range: 45-160 mcg/dL) 58 (Ref Range: 45-160 mcg/dL) NR ???Lab:VITAMIN B12/FOLATE, SERUM PANEL (Order Date - 06/30/2024) (Collection Date & Time - 06/30/2024 05:13 PM)?ValueReference Range?FOLATE, SERUM6.3- ng/mL?VITAMIN [id number] - pg/mL * Lab:CBC/Diff Ambiguous [place] lt * Collection Date 06/30/2024 03/23/2024 03/14/2024 Collection Time 05:13 PM 12:02 PM 03:39 PM Order Date 06/30/2024 03/23/2024 03/14/2024 WBC 6.5 (Ref Range: 3.8-10.8 Thousand/uL) 4.2 (Ref Range: 3.8-10.8 Thousand/uL) 5.6 (Ref Range: 3.8-10.8 Thousand/uL) RBC 3.72 L (Ref Range: 3.80-5.10 Million/uL) 3.73 L (Ref Range: 3.80-5.10 Million/uL) 3.54 L (Ref Range: 3.80-5.10 Million/uL) Hemoglobin 10.8 L (Ref Range: 11.7-15.5 g/dL) 11.4 L (Ref Range: 11.7-15.5 g/dL) 10.5 L (Ref Range: 11.7-15.5 g/dL) Hematocrit 35.1 (Ref Range: 35.0-45.0 %) 35.2 (Ref Range: 35.0-45.0 %) 34.3 L (Ref Range: 35.0-45.0 %) MCV 94.4 (Ref Range: 80.0-100.0 fL) 94.4 (Ref Range: 80.0-100.0 fL) 96.9 (Ref Range: 80.0-100.0 fL) MCH 29.0 (Ref Range: 27.0-33.0 pg) 30.6 (Ref Range: 27.0-33.0 pg) 29.7 (Ref Range: 27.0-33.0 pg) MCHC 30.8 L (Ref Range: 32.0-36.0 g/dL) 32.4 (Ref Range: 32.0-36.0 g/dL) 30.6 L (Ref Range: 32.0-36.0 g/dL) RDW 12.8 (Ref Range: 11.0-15.0 %) 13.8 (Ref Range: 11.0-15.0 %) 13.9 (Ref Range: 11.0-15.0 %) Platelets 358 (Ref Range: 140-400 Thousand/uL) 271 (Ref Range: 140-400 Thousand/uL) 429 H (Ref Range: 140-400 Thousand/uL) Neutrophils 55.1 (Ref Range: %) 55.9 (Ref Range: %) 54.2 (Ref Range: %) Lymphs 31.3 (Ref Range: %) 32.6 (Ref Range: %) 36.4 (Ref Range: %) Monocytes 8.7 (Ref Range: %) 8.6 (Ref Range: %) 6.5 (Ref Range: %) Eos 4.1 (Ref Range: %) 2.4 (Ref Range: %) 2.2 (Ref Range: %) Basos 0.8 (Ref Range: %) 0.5 (Ref Range: %) 0.7 (Ref Range: %) Neutrophils (Absolute) 3582 (Ref Range: 3713-3815 cells/uL) 2348 (Ref Range: 4473-6220 cells/uL) 3035 (Ref Range: 6038-7067 cells/uL) Lymphs (Absolute) 2035 (Ref Range: 850-3900 cells/uL) 1369 (Ref Range: 850-3900 cells/uL) 2038 (Ref Range: 850-3900 cells/uL) Monocytes(Absolute) 566 (Ref Range: 200-950 cells/uL) 361 (Ref Range: 200-950 cells/uL) 364 (Ref Range: 200-950 cells/uL) Eos (Absolute) 267 (Ref Range: 15-500 cells/uL) 101 (Ref Range: 15-500 cells/uL) 123 (Ref Range: 15-500 cells/uL) Baso (Absolute) 52 (Ref Range: 0-200 cells/uL) 21 (Ref Range: 0-200 cells/uL) 39 (Ref Range: 0-200 cells/uL) MPV 10.2 (Ref Range: 7.5-12.5 fL) 10.1 (Ref Range: 7.5-12.5 fL) 9.7 (Ref Range: 7.5-12.5 fL) * Lab:COMPREHENSIVE METABOLIC PANEL * Collection Date 06/30/2024 03/14/2024 02/08/2024 Collection Time 05:13 PM 03:39 PM 12:28 PM Order Date 06/30/2024 03/14/2024 01/26/2024 GLUCOSE 105 H (Ref Range: 65-99 mg/dL) 95 (Ref Range: 65-99 mg/dL) 93 (Ref Range: 65-139 mg/dL) UREA NITROGEN (BUN) 8 (Ref Range: 7-25 mg/dL) 11 (Ref Range: 7-25 mg/dL) 10 (Ref Range: 7-25 mg/dL) CREATININE 0.64 (Ref Range: 0.60-1.00 mg/dL) 0.57 L (Ref Range: 0.60-1.00 mg/dL) 0.67 (Ref Range: 0.60-1.00 mg/dL) BUN/CREATININE RATIO SEE NOTE: (Ref Range: 6-22 (calc)) 19 (Ref Range: 6-22 (calc)) SEE NOTE: (Ref Range: 6-22 (calc)) SODIUM 140 (Ref Range: 135-146 mmol/L) 141 (Ref Range: 135-146 mmol/L) 141 (Ref Range: 135-146 mmol/L) POTASSIUM 4.3 (Ref Range: 3.5-5.3 mmol/L) 5.3 (Ref Range: 3.5-5.3 mmol/L) 4.4 (Ref Range: 3.5-5.3 mmol/L) CHLORIDE 105 (Ref Range: 98-110 mmol/L) 106 (Ref Range: 98-110 mmol/L) 105 (Ref Range: 98-110 mmol/L) CARBON DIOXIDE 22 (Ref Range: 20-32 mmol/L) 26 (Ref Range: 20-32 mmol/L) 28 (Ref Range: 20-32 mmol/L) CALCIUM 8.5 L (Ref Range: 8.6-10.4 mg/dL) 8.5 L (Ref Range: 8.6-10.4 mg/dL) 9.0 (Ref Range: 8.6-10.4 mg/dL) PROTEIN, TOTAL 5.8 L (Ref Range: 6.1-8.1 g/dL) 5.7 L (Ref Range: 6.1-8.1 g/dL) 6.0 L (Ref Range: 6.1-8.1 g/dL) ALBUMIN 3.6 (Ref Range: 3.6-5.1 g/dL) 3.3 L (Ref Range: 3.6-5.1 g/dL) 3.7 (Ref Range: 3.6-5.1 g/dL) GLOBULIN 2.2 (Ref Range: 1.9-3.7 g/dL (calc)) 2.4 (Ref Range: 1.9-3.7 g/dL (calc)) 2.3 (Ref Range: 1.9-3.7 g/dL (calc)) ALBUMIN/GLOBULIN RATIO 1.6 (Ref Range: 1.0-2.5 (calc)) 1.4 (Ref Range: 1.0-2.5 (calc)) 1.6 (Ref Range: 1.0-2.5 (calc)) BILIRUBIN, TOTAL 0.3 (Ref Range: 0.2-1.2 mg/dL) 0.5 (Ref Range: 0.2-1.2 mg/dL) 0.5 (Ref Range: 0.2-1.2 mg/dL) ALKALINE PHOSPHATASE 117 (Ref Range: 37-153 U/L) 106 (Ref Range: 37-153 U/L) 92 (Ref Range: 37-153 U/L) AST 15 (Ref Range: 10-35 U/L) 25 (Ref Range: 10-35 U/L) 16 (Ref Range: 10-35 U/L) ALT 5 L (Ref Range: 6-29 U/L) 7 (Ref Range: 6-29 U/L) 6 (Ref Range: 6-29 U/L) EGFR 92 (Ref Range: > OR = 60 mL/min/1.73m2) 95 (Ref Range: > OR = 60 mL/min/1.73m2) 91 (Ref Range: > OR = 60 mL/min/1.73m2) Notes: [employer], support 07/01/2024 07:45:14 : This order was created by the Interface. [employer], support 02/09/2024 10:25:42 : This order was created by the Interface. * Examination: G eneral Examination: GENERAL APPEARANCE: [...] ,, rhonchi occassional.? MUSCULOSKELETAL: g ait slowed, cane noted. EXTREMITIES: t race edema. PERIPHERAL PULSES: s lightly faint. NEUROLOGIC: a ble to move all 4 extremities. PSYCH: a wake, , cooperative with exam. ? Assessment: * Assessment: 1. A therosclerotic heart disease of [place] coronary artery with other forms of angina pectoris - I25.118 (Primary) 2 . E ssential (primary) hypertension - I10 ?3. D yslipidemia - E78.5 4 . T ype 2 diabetes mellitus with other specified complication, without long-term current use of insulin - E11.69 5 . I trace deficiency anemia, unspecified iron deficiency anemia type - D50.9 6 . M ajor depressive disorder, recurrent, moderate - F33.1 Plan: * Treatment: 2. D yslipidemia L AB: Lipid Panel (Ordered for 01/09/2025) Notes: Counseled on diet and exercise., target lipid levels Compliance with treatment regimen,, daily excercise low impact option of DASH / mediterranean diet explained 3. T ype 2 diabetes mellitus with other specified complication, without long-term current use of insulin L AB: Hemoglobin A1c (Ordered for 01/09/2025) L AB: Microalb/Creat Ratio, Randm Ur (Ordered for 01/09/2025) Notes: Explained relation between diabetes and CV disease, retinopathy, nephropathy, and neuropathy. try to keep A1c on target , Home blood glucose monitoring t include pre-meal, and post-meal glucose (140-160 mg/dL). need for yearly flu shots, diabetic foot exam, diabetic eye exam, daily foot self-inspection. Educated regarding compliance with treatment hypoglycemia prevention, and use of aspirin, JUS inhibitor, and statin role explained. 4. I trace deficiency anemia, unspecified iron deficiency anemia type Notes: Counselled on Monitor labs and supplement with OTC iron /Vitamin C/B12/ folate, stay updated with cancer screening . 5. M ajor depressive disorder, recurrent, moderate Notes: Counselled on lifestyle modification , balance diet, sleep, low impact exercise, avoidance of stimulants, stress reduction with reduce stress-full situations. * Procedures: S upervisor Max Hamilton MD . * Follow Up: I december * Billing Information: * Visit Code: 01151 Office Visit, Est Pt., Level 4. * Procedure Codes: * Electronic signature of Madie Vazquez APRN on 08/25/2024 at 12:26 PM EDT Sign off status: Pending * Provider: Molly Vazquez APRN Date: 0 07/18/2024 Generated for Antonio maynard/Akira/Mariitting on: 0 08/25/2024 12:26 PM EDT History and Physical Notes * HPI (History of Present Illness) Category Sub-Category Detail Notes Category Not es Patient presents for CAD, CT abdomen and pelvis on 04/06/2018 shows coronary artery calcification. Patient had stress test on 06/26/2023 shows no evidence of ischemia or infarct. Echo done on 06/25/2023 shows EF 65 to 70%. Patient has occasional chest pressure symptoms without significant ONEAL. Current medication include ranolazine, atorvastatin, antianginal metoprolol. HTN, patient currently on metoprolol, without any side effects patient compliant with medication blood pressure today 108/64 Dyslipidemia, patient currently on atorvastatin without any side effects patient is compliant with the medication previous total cholesterol 174, HDL 74, triglyceride 110, LDL 79 on 01/19/2024 DM2, patient denies any polyuria, polydipsia, blurry vision or hypoglycemic events A1c was 6.4 on 01/18/2024. Patient currently not on any hypoglycemic agents choose lifestyle modification. Patient does not check blood sugars on daily basis. Iron deficiency anemia, patient denies any abdominal pain, nausea vomiting, hematuria, hematochezia recent most hemoglobin levels 10.8 previously 11.4/10.5, iron panel done recently which shows iron 30, ferritin 68. Patient has colonoscopy performed on 09/06/2018. Patient offered iron infusions states she will be leaving for [place] next week and come back in December. Patient states she will tell her primary care in [place] about iron infusions. Major depression moderate, patient was managing with multiple medication Abilify, Effexor now only taking Effexor states her mood is getting better, no feeling down she would like to continue Effexor only. Patient denies any suicidal homicidal ideation present in the room, patient is leaving for [place] next week, she will come back in December Examination Category Sub-Category Detail Notes Category Not [...] PERIPHERAL PULSES: slightly faint MUSCULOSKELETAL: gait slowed, cane no melisa LYMPH NODES: no cervical adenopat hy PSYCH: awake, , cooperative with exam ORAL CAVITY: mucosa moist, no les ions, tongue in midline
--- OUTSIDE RECORDS SUMMARY | 2024-07-22 05:45 | XMS_ITS ---
Author Organization [facility] [place] Address [address] [facility] [address] [place] [address] Care Team Providers Care Mechanical Process Engineer Name Role Phone Fran Hamilton Primary Care Provider Adi Hayes [phone] REASON FOR VISIT LT Hip F/U Encounters Encounter Location Date Provider Diagnosis [facility] [place] [address] [address] 07/22/2024 Adi Sanabria Plan Of Treatment Next Appt Details Provider Name:Faby Bonilla, 01/18/2025 10:00:00 AM, [address] [address], [place], [address], Progress Notes * Dagmar FLORES GDOB: [birth year] (74 yo F)Acc No.[id number]:07/22/2024 Progress Notes Patient: Dagmar TORRES Provider: Aaron Sanabria Jr., MD :1950 A ge:74 Y S ex:Female Date:07/22/2024 Address:[address] [place] [address] [address] , [address], [facility] Pcp:Fran Hamilton Subjective: * Chief Complaints: * 1 . LT Hip F/U. * Medical History: Objective: * Vitals: Assessment: Plan: * Treatment: * Billing Information: * Visit Code: * Procedure Codes: * Electronic signature of Adi Sanabria MD on 08/25/2024 at 12:28 PM EDT Sign off status: Pending * Provider: Aaron Sanabria Jr., MD Date: 0 07/22/2024 Generated for Antonio maynard/Akira/Solis on: 0 08/25/2024 12:28 PM EDT
--- OUTSIDE RECORDS SUMMARY | 2024-08-25 12:23 | XMS_ITS | Encounter Summary ---
Author Organization [facility] Address [address] [place] [address] Care Team Providers Care Shoe Maker Name Role Phone Charles Barrett MD Primary Care Provider [phone]- [phone] Bozena Milan LPN Unavailable Unavailable Encounter Details Date Type Department Care Team (Late st Contact Info) Description 07/31/2021 Orders Only External Location [address] [place] [phone] Provider, External Social History Tobacco Use Types Packs/Day Years Used Date Smoking Tobacco: Never Assessed Comments Unknown Sex and Gender Information Value Date Recorded Sex Assigned at Not on file Legal Sex Female 7:48 PM EDT Gender Identity Not on file Sexual Orientation Not on file documented as of this encounter Plan of Treatment Upcoming Encounters Date Type Department Care Team (Late st Contact Info) Description 11/23/2024 11:40 AM EDT Office Visit [facility] [place] [address] [facility]. [address] [phone] Indu Grimes MD [address] [place] [phone] 12/08/2024 9:40 AM EDT Office Visit [facility] [address] [facility]. [address] [phone] Sylvester Farr MD [address] [place] [address] documented as of this encounter Procedures Procedure Name Priority Date/Time Associated Diagnosis Comments XR OUTSIDE IMAGES 07/31/2021 12:30 PM EDT documented in this encounter Results * XR OUTSIDE IMAGES (07/31/2021 12:30 PM EDT) Anatomical Region Laterality Modality Radiographic Kelsey ging 07/31/2021 12:3 0 PM EDT us External Provider IMG XR PROCEDURES Final Result documented in this encounter Visit Diagnoses Not on filedocumented in this encounter Care Teams Shoe Maker Relationship Specialty Start Date End Date Charles Barrett MD [address] [place] [id number] PCP - General 09/11/21 Bozena Milan LPN TCM Nurse 11/24/23 12/24/23 documented as of this encounter
--- OUTSIDE RECORDS SUMMARY | 2024-08-25 12:23 | XMS_ITS | Encounter Summary ---
Author Organization [facility] Address [address] [place] [address] Care Team Providers Care Health Technician Name Role Phone Charles Barrett MD Primary Care Provider +1- [phone] Bozena Milan LPN Unavailable Unavailable Encounter Details Date Type Department Care Team (Late st Contact Info) Description 08/12/2021 Orders Only External Location [address] [place] [phone] Provider, External Social History Tobacco Use Types [...] Description 11/23/2024 11:40 AM EDT Office Visit [facility] [place] [address] [facility]. [address] [phone] Indu Grimes MD [address] [place] [address] 12/08/2024 9:40 AM EDT Office Visit [facility] [address] [facility]. [address] [phone] Sylvester Farr MD [address] [place] [address] documented as of this encounter Procedures Procedure Name Priority Date/Time Associated Diagnosis Comments XR OUTSIDE IMAGES 08/12/2021 1:04 PM EDT documented in this encounter Results * XR OUTSIDE IMAGES (08/12/2021 1:04 PM EDT) Anatomical Region Laterality Modality Radiographic Kelsey ging 08/12/2021 1:04 PM EDT us External Provider IMG XR PROCEDURES Final Result documented in this encounter Visit Diagnoses Not on filedocumented in this encounter Care Teams Health Technician Relationship Specialty Start Date End Date Charles Barrett MD [address] [place] [address] PCP - General 09/11/21 Bozena Milan LPN TCM Nurse 11/24/23 12/24/23 documented as of this encounter
--- OUTSIDE RECORDS SUMMARY | 2024-08-25 12:24 | XMS_ITS ---
Author Organization Unknown Allergies, Adverse Reactions and Alerts Date IsAllergic OnsetDate Allergen Reaction Type Severity Alireza rgyCode Legacyallergictoid ReactionCode ReactionCodeSystemID 08/11 00:00 :00 1 Dilaudid [id number] 08/11 00:00 :00 1 Codeine 01/04 00:00 :00 1 Dilaudid [id number] 01/04 00:00 :00 1 Codeine 12/13 00:00 :00 1 Dilaudid 09891434073 12/13 00:00 :00 1 Codeine 12/13 00:00 :00 1 Dilaudid 99459519316 12/13 00:00 :00 1 Codeine 11/12 00:00 :00 1 Dilaudid 02275231362 11/12 00:00 :00 1 Codeine 08/25 00:00 :00 1 Dilaudid 78420597791 08/25 00:00 :00 1 Codeine
--- OUTSIDE RECORDS SUMMARY | 2024-08-25 12:24 | XMS_ITS | Data Portability ---
Author Organization [place] - [facility], autoContract Address [address] [facility] [address] [place] [address] Care Team Providers Care It Infrastructure Engineer Name Role Phone MAX LOPEZ Primary Care Provider Assessment Encounter Date Assessment Date Assessment LastModified by Organization Details LastModified Time 04/10/2023 04/10/2023 Patient will require assistance ambulating using an assistive device, upon using this device the patient will need proper training after being discharged to their home from the hospital post operatively. The patient will also require functional training using steps and chairs to which the patient will be a high fall risk. Anti-coagulation monitoring and surgical wound will need attentive care. Patients activity will be reduced post operatively due to weight bearing status and possibility of not being able to ambulate or navigate stairs. Patient will be restricted to a homebound status. [facility] will be directed to assist the patient post operatively in their home startin04/22/2023 Patient will start outpatient physical therapy at [facility] on 05/07/2023 No history of DVT or PE. No history of reactions to anesthesia. EFORSCE Report Reviewed: Acute Pain Exception- 7 days of opioids written for post operative pain The patient understands that they have osteoarthritis of the knee. Their treatment options include home conservative modalities such as rest, ice, and elevation, non-steroidal anti-inflammatory medication, outpatient physical therapy, injection therapy with either anti-inflammatory steroid or hyaluronic acid derivative. The patient has failed three of the above listed conservative measures for over three months and understands that they are a candidate for surgical intervention in the form of a Total Knee Arthroplasty. The patient has decided upon a Right TKA Revision. Patient has been medically cleared for a Right Total Knee Arthroplasty. The procedure was discussed in detail utilizing models and diagrams. The patient was given an informed consent form. All questions were answered at this time. The risks and benefits of the procedure were gone over in great detail. The patient has consented to the above procedure and will proceed with the pre-admission process at the hospital. [email or web address] Not available 04/10/2023 10:05:05 Plan of Treatment Reminders Order Date Submit Date Provider Last Modified By Organization Details Last Modified Time Details Appointments None recor ded. Lab None recor ded. Referral physi phyllis thera pist refer ral 2023 [facility], [address], [address], [place], [address], 4 07:32:54 physi phyllis thera pist refer ral - Outpa tient PT for ROM, stren gthen ing and anti- infla mmato ry 2-3x week for 4-6 weeks 2023 [facility] (Referral), [address], [place], [address], 4 10:58:21 healt h home refer ral - Start Skill ed Nursi ng/Ph ysica l Thera py, as direc irasema, 2 weeks , Notes : START [facility], as direc irasema, 2 weeks post sx, Notes : START [address], [address], [address], [place], [address], 10:13:15 physi phyllis thera pist refer ral - Start Outpa tient LE PT for ROM, stren gthen ing and anti- infla mmato ry modal ities 2-3x week for 4-6 weeks . START : [facility] 2023 024 [facility] (Referral), [address], [place], [address], 02/29/202 4 14:24:22 Procedures None recor ded. Surgeries None recor ded. Imaging XR, wrist , 3 or more view 2023 024 [facility], [address], [place], [address], 4 00:38:31 XR, wrist , 3 or more view 2023 024 [facility], [address], [address], [place], [address], 4 22:21:29 XR, knee, 3 view 2023 024 [email or web address] [facility], [address], [address], [place], [address], 4 12:18:53 Medication Orders trama dol 50 mg table t 2023 024 [facility] [facility], [address], [address], 4 11:45:54 amoxi cilli n 500 mg capsu le 2023 024 [facility] [facility], [address], [address], 4 11:45:53 trama dol 50 mg table t 2023 024 [facility] [facility], [address], [address], 4 08:27:11 Perco cet 5 mg-32 5 mg table t 2023 024 [email or web address] [facility] [facility], [address], [address], 4 08:26:03 Patient TargetsNo targets recorded. Patient Instructions Encounter Date Encounter Id Patient Instructions Last Modified By Organization Details Last Modified Time 05/08/2023 [id number] Swelling and stiffness may last up to 6-8 months after surgery. The surgical site will be warm for up to 4 months after surgery due to the tissue healing. Continue to ice the surgery site for any swelling. Continue to participate with Physical Therapy. Continue pain medication as needed. Please let the office know when your supply is low and we will send a refill for up to 6 weeks after surgery. Report any redness or drainage at incision site, increased swelling, increased pain not relieved by pain medication. 6 weeks after surgery, once the incision is healed, you may apply Vitamin E oil or any scar treatment to the incision. Not available 05/05/2023 13:13:33 06/10/2023 [id number] Swelling and stiffness may last up to 6-8 months after surgery. The surgical site will be warm for up to 4 months after surgery due to the tissue healing. Continue to ice the surgery site for any swelling. Continue to participate with Physical Therapy. Report any redness or drainage at incision site, increased swelling, increased pain not relieved by pain medication. you may apply Vitamin E oil or any scar treatment to the incision. [email or web address] Not available 06/10/2023 11:46:11 Reason for Referral Health Home Referral for Mec hanical complication of internal joint prosthesis Start [facility]/Physical Therapy, as directed, 2 weeks, Notes: START [facility], as directed, 2 weeks post sx, Notes: START 04/22/2023 Referring Physician: [facility], Encounter Date: 04/10/2023 Physical Therapist Referral for Mechanical complication of internal joint prosthesis Start Outpatient LE PT for ROM, strengthening and anti-inflammatory modalities 2-3x week for 4-6 weeks. START:05/07/2023 [place] location Referring Physician: [facility], Encounter Date: 04/10/2023 Physical Therapist Referral for Mechanical complication of internal joint prosthesis Outpatient PT for ROM, strengthening and anti-inflammatory 2-3x week for 4-6 weeks Referring Physician: [facility], Encounter Date: 05/08/2023 Physical Therapist Referral for Pain of left wrist Referring Physician: Crispin Tai, Orthopedic Surgery, Encounter Date: 02/11/2024 Results Created Date Observation Date Name Description Value Unit Range Abnormal Flag Note LastModifiedBy Organization Detail LastModifiedTime 06/08/19 24 XR, knee, 3 view No observ ation record ed. [facility] [address] [address] [address], [place], [address], 06/10/2023 11:11:13 01/18/20 24 01/18/2024 imagi ng/di agnos tic resul t No observ ation record ed. [facility] [address] [place], [address], 01/19/2024 10:18:50 01/20/20 24 XR, wrist , 3 or more view No observ ation record ed. [facility] [address] [address] [address], [place], [address], 01/21/2024 14:08:19 02/11/20 24 XR, wrist , 3 or more view No observ ation record ed. [email or web address] [address] [address] [address], [place], [address], 02/11/2024 16:45:25 Result Notes None recorded. 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 019593281 Active 2023 Rod murguia [place] - [facility] 4 08:09:26 Pain of right knee joint 82209083074 4100 Active 2023 Rod [place]urguia [place] [facility] 4 08:09:26 Osteoarth ritis of right knee joint 21675546898 9100 Active 2023 Faby Bonilla, RADHA [address] [address],[address], [place], [address] , [facility] 4 13:13:34 Closed Colles' fracture 917881402 Active 2022 Colles' fracture of right radius, initial encounter for closed fracture; W/U Status: confirmed Not Available [facility] 4 09:55:36 Trochante lilly bursitis of right hip 20834143013 9100 Active 2021 Trochante lilly bursitis, right hip; W/U Status: confirmed Not Available [facility] 4 09:55:38 Degenerat ion of lumbar intervert ebral disc 30663601 Active 2021 Other intervert ebral disc degenerat ion, lumbar region; W/U Status: confirmed Not Available [facility] 4 09:55:38 Pain of right hip joint 14964518434 9102 Active 2021 Pain in right hip; W/U Status: confirmed Not Available [facility] 4 09:55:38 Pain of right wrist 59242791999 9100 Active 2022 Pain in right wrist; W/U Status: confirmed Not Available [facility] 4 09:55:38 Idiopathi c osteoarth ritis 327571970 Active 2022 Unilatera l primary osteoarth ritis, right knee; W/U Status: confirmed Not Available [facility] 4 09:55:39 Pain of left wrist 49328091732 9102 Active 2023 [facility] 4 14:17:24 Problem Notes None recorded. 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 Procedure Notes None recorded. Medical Equipment None Reported. Allergies Allergen ID Allergen Name Allergen Category Reaction Reaction Severity Criticality Documentation Date Start Date Code Code System Note Provider Name and Address Organization Details Recorded Time 2547 codeine medicatio n itching Not available Not available 04/10/2023 2670 RxNorm Faby BrodyJenae Reddyt, HOSPITAL FELLOW [address] [address],[address], [place], [address], [facility] 4 10:02:14 2548 Dilaudid medicatio n itching Not available Not available 04/10/2023 88868 3 RxNorm Faby BrodyJenae Reddyt, HOSPITAL FELLOW [address] [address],[address], [place], [address] [place] [address], [facility] 4 10:02:19 [address] Dilaudid medicatio n itching Not available Not available 01/01/2024 64368 3 RxNorm React ion: itchi ng; Not Available [facility] 4 10:02:40 06416 codeine sulfate medicatio n itching Not available Not available 01/01/2024 80248 RxNorm React ion: itchi ng; Not Available [facility] 4 10:02:40 Medications Name Sig Start Date Stop Date Status Note LastModified by Organization Details LastModified Time amoxicill in 500 mg capsule TAKE FOUR CAPSULES BY MOUTH ONE HOUR BEFORE APPOINTM ENT active Not Available Not Available No t Available atorvasta tin 40 mg tablet TAKE 1 TABLET ONCE DAILY active Not Available Not Available No t Available doxycycli ne hyclate 100 mg capsule TAKE 1 CAPSULE BY MOUTH TWICE DAILY FOR 10 DAYS 05/07 completed Not Available Not Available Not Available albuterol sulfate 2.5 mg/3 mL (0.083 %) solution for nebulizat ion USE 1 VIAL IN NEBULIZE R EVERY 6 HOURS NEEDED active Not Available Not Available No t Available fluconazo le 150 mg tablet TAKE ONE TABLET BY MOUTH ONE TIME NOW THEN TAKE THE SECOND DOSE AFTER THREE DAYS 05/07 completed Not Available Not Available Not Available benzonata te 200 mg capsule TAKE 1 CAPSULE BY MOUTH THREE TIMES DAILY NEEDED 01/20 completed Not Available Not Available Not Available levetirac etam 500 mg tablet TAKE 1 TABLET TWICE A DAY active Not Available Not Available No t Available tretinoin 0.025 % topical cream APPLY A PEA SIZED AMOUNT TO THE FACE TOPICALL Y AT BEDTIME active Not Available Not Available No t Available prednison e 20 mg tablet TAKE 2 TABLETS BY MOUTH ONCE DAILY IN THE MORNING WITH FOOD FOR 4 DAYS 01/20 completed Not Available Not Available Not Available midodrine 5 mg tablet TAKE 1 TABLET TWICE A DAY active Not Available Not Available No t Available sulfameth oxazole 800 mg-trimet hoprim 160 mg tablet TAKE ONE TABLET BY MOUTH EVERY 12 HOURS FOR 10 DAYS 05/07 completed Not Available Not Available Not Available omeprazol e 40 mg capsule,d elayed release TAKE 1 CAPSULE DAILY active Not Available Not Available No t Available doxycycli ne monohydra te 100 mg tablet TAKE 1 TABLET BY MOUTH TWICE DAILY FOR 10 DAYS 01/20 completed Not Available Not Available Not Available tramadol 50 mg tablet 1 tab(s); every 6 hours active Action: Taking S ource: Adi Sanabria T Prepare d By: Adi Sanabria Not Available Not Available Not Available triamcino lone acetonide 0.1 % topical cream APPLY TO THE AFFECTED AREA(S) TOPICALL Y TWICE DAILY TO ITCHY SKIN UP TO 2 WEEKS NEEDED active Not Available Not Available No t Available oxycodone -acetamin ophen 5 mg-325 mg tablet TAKE TWO TABLETS BY MOUTH EVERY 6 HOURS NEEDED FOR 7 DAYS 05/07 completed Not Available Not Available Not Available benzonata te 100 mg capsule TAKE ONE CAPSULE BY MOUTH THREE TIMES A DAY NEEDED FOR 14 DAYS 05/07 completed Not Available Not Available Not Available dexametha sone 2 mg tablet TAKE ONE TABLET BY MOUTH ONE TIME DAILY FOR 5 DAYS 05/07 completed Not Available Not Available Not Available venlafaxi ne 37.5 mg tablet TAKE 1 TABLET DAILY active Not Available Not Available No t Available triamcino lone acetonide 0.1 % topical ointment APPLY TO BED OF NAILS TOPICALL Y TWO TIMES A DAY FOR TWO WEEKS NEEDED active Not Available Not Available No t Available dexametha sone 4 mg tablet TAKE ONE TABLET BY MOUTH THREE TIMES A WEEK (THURSDAY, Y AND THURSDAY) FOR 15 DAYS 05/07 completed Not Available Not Available Not Available gabapenti n 300 mg capsule TAKE 1 CAPSULE EVERY MORNING AND 3 CAPSULES AT BEDTIME active Not Available Not Available No t Available raloxifen e 60 mg tablet TAKE 1 TABLET DAILY active Not Available Not Available No t Available monteluka st 10 mg tablet Take 1 tablet every day by oral route. active Not Available Not Available No t Available midodrine 2.5 mg tablet Take 2 tablets 3 times a day by oral route. 01/20 completed Not Available Not Available Not Available metoprolo l succinate ER 25 mg tablet,ex tended release 24 hr active Not Available Not Available Not Available levofloxa brice 750 mg tablet TAKE 1 TABLET BY MOUTH ONCE DAILY FOR 10 DAYS 01/20 completed Not Available Not Available Not Available zolpidem 10 mg tablet TAKE 1 TABLET BY MOUTH ONCE DAILY AT BEDTIME active Not Available Not Available No t Available methylpre dnisolone 4 mg tablets in a dose pack TAKE BY MOUTH DIRECTED ON INSIDE OF PACKAGE FOR 6 DAYS 01/20 completed Not Available Not Available Not Available risperido ne 0.5 mg tablet TAKE ONE TABLET BY MOUTH NIGHTLY active Not Available Not Available No t Available enoxapari n 60 mg/0.6 mL subcutane ous syringe INJECT SUBCUTAN EOUSLY DIRECTED EVERY 12 HOURS 05/07 completed Not Available Not Available Not Available cane as directed active Action: Disconti nued Park rce: Scott Bonilla Prepare d By: Scott Bonilla Ass essment: M17.11 Unilater al primary osteoart hritis, right knee Not Available Not Available Not Available rosuvasta tin 40 mg tablet Take 1 tablet every day by oral route. active Not Available Not Available No t Available metoprolo l tartrate 25 mg tablet TAKE ONE TABLET BY MOUTH TWICE A DAY 01/20 completed Not Available Not Available Not Available eszopiclo ne 1 mg tablet TAKE 1 TABLET BY MOUTH ONCE DAILY NEEDED AT BEDTIME; 30 active Action: Taking S ource: Adi Sanabria Prepare d By: Adi Sanabria Not Available Not Available Not Available omeprazol e 40mg 01/19 completed Not Available Not Available Not Available Vitamin D active Not Available Not Dianne ilable Not Available gabapenti n 300 mg 05/07 completed Not Available Not Available Not Available ranolazin e ER 500 mg tablet,ex tended release,1 2 hr TAKE 1 TABLET TWICE A DAY. DO NOT CRUSH, CHEW, OR SPLIT active Not Available Not Available No t Available Multaq 400 mg tablet 1 tab(s); 2 times a day; 30 day(s) active Action: Taking S ource: Adi Sanabria Prepare d By: Adi Sanabria Not Available Not Available Not Available sodium,po tassium,m ag sulfates 17.5 gram-3.13 gram-1.6 gram oral soln USE DIRECTED BY PROVIDER FOR COLONOSC OPY PREP 01/20 completed Not Available Not Available Not Available Eliquis 5 mg tablet 90 active Action: Taking S ource: Adi Sanabria Prepare d By: Adi Sanabria Not Available Not Available Not Available Trelegy Ellipta 100 mcg-62.5 mcg-25 mcg powder for inhalatio n Inhale 1 puff every day by inhalati on route. 01/20 completed Not Available Not Available Not Available mecobalam in (vitamin B12) 10,000 mcg solution for injection Take by injectio n route. active Not Available Not Available No t Available Trelegy Ellipta 200 mcg-62.5 mcg-25 mcg powder for inhalatio n USE 1 INHALATI ON ORALLY DAILY. RINSE MOUTH AFTER EACH USE. active Not Available Not Available No t Available Paxlovid 300 mg (150 mg x 2)-100 mg tablets in a dose pack TAKE TWO PINK TABLETS TOGETHER WITH ONE WHITE TABLET BY MOUTH 2 TIMES A DAY (MORNING AND EVENING) FOR 5 DAYS DIRECTED ON PILL PACK 05/07 completed Not Available Not Available Not Available albuterol 90 mcg-budes onide 80 mcg/actua tion HFA aerosol inhaler Inhale by inhalati on route. active Not Available Not Available No t Available Vitals Date Recorded Body weight Body mass index (BMI) Body height Systolic blood pressure Diastolic blood pressure Provider Name and Address Organization Details Last Updated DateTime 04/10/2023 95209.67 g 28 kg/m2 154.94 cm 138 mm[Hg] 78 mm[Hg] Faby Bonilla NP [address] [address],[address], [place], [address] [place], [place] - [facility] 4 09:35:10 Date Recorded Body height Body mass index (BMI) Body weight Systolic blood pressure Diastolic blood pressure Provider Name and Address Organization Details Last Updated DateTime 05/08/2023 154.94 cm 28 kg/m2 48515.67 g 118 mm[Hg] 68 mm[Hg] Caron Murdock [facility] 4 08:19:28 Date Recorded Systolic blood pressure Diastolic blood pressure Provider Name and Address Organization Details Last Updated DateTime 06/10/2023 110 mm[Hg] 62 mm[Hg] Faby Bonilla, HOSPITAL FELLOW [address] [address],[address], [place], [address], [facility] 06/10/2023 11:32:28 Date Recorded Body height Body mass index (BMI) Body weight Provider Name and Address Organization Details Last Updated DateTime 06/10/2023 154.94 cm 28 kg/m2 92752.67 g Caron Murdock [facility] 06/10/2023 11:13:29 Date Recorded Body height Body mass index (BMI) Body weight Systolic blood pressure Diastolic blood pressure Provider Name and Address Organization Details Last Updated DateTime 01/21/2024 154.94 cm 27.6 kg/m2 43816.49 g 132 mm[Hg] 80 mm[Hg] Lizette Harry [facility] 4 15:18:14 Date Recorded Body height Body mass index (BMI) Body weight Heart rate Oxygen saturation Oxygen saturation in Arterial blood by Pulse oximetry Respiratory rate Systolic blood pressure Diastolic blood pressure Provider Name and Address Organization Details Last Updated DateTime 154.94 cm 27.6 kg/m2 99655.4 9 g 70 /min 98 % 98 % 16 /min 110 mm[Hg] 68 mm[Hg] Tiesha Reynolds [facility] 15:59:29 Social History None recorded. Functional Status Question Answer Note LastModified by Organizat ion Details LastModified Time How many times per week do you consume alcohol? 1-2 times per week [email or web address] Information not available 01/20/2024 What is your level of alcohol consumption? Occasional [email or web address] Information not available 04/10/2023 Mental Status None recorded. Family History Relationship Description Onset Age of this Age Resolved Age Notes LastModified by Organization Details LastModified Time Brother Diabetes mellitus [email or web address] Not available 2023 10:42:27 Father Heart disease Not available 2023 10:42:32 Father Cerebrovascu lar accident [email or web address] Not available 04/2023 10:42:39 Mother Heart disease [email or web address] Not available 2023 10:42:55 Mother Cerebrovascu lar accident [email or web address] Not available 04/2023 10:43:03 Mother Family history of malignant neoplasm [email or web address] Not available 2023 10:43:10 Medical History Condition Response Coronary Artery Disease Y Seizures/Epilepsy Y Afib Y Reflux/GERD Y Heart Failure Y Gynecological HistoryNo gynecological history recorded. Obstetrics History GPAL:G 0 P 0 0 0 0 Past Encounters Encounter ID Performer Location Encounter Start Date Encounter Closed Date Diagnosis/Indication Diagnosis SNOMED-CT Code Diagnosis ICD10 Code Diagnosis Note [id number] Faby Bonilla NP [facility] [address] [place] [address] 04/10/2023 09:25:13 04/10/2023 10:13:14 Pain of right knee joint 9368799247 66044 M25.561 Mechanical complication of internal joint prosthesis 447390548 T84.092D [id number] Faby Bonilla NP [facility] [address] [facility] [address] [place] [id number] 7 05/08/2023 08:10:33 05/08/2023 08:33:03 Osteoarthritis of right knee joint 2188604608 73872 M17.11 Pain of ri ght knee joint 4452348508 07580 M25.561 Mechanical complication of internal joint prosthesis 450211134 T84.092D Continue DVT prophylaxi s for 2 more weeks.No swimming pool, hot tub or bath tub for 4 more weeks.Do not apply any lotions or creams on incision for 4 more weeks.Prog ress from walker to cane per PT recommenda tions.Star t outpatient PT.Continu e to apply ice 3-4 times per day and as needed for swelling.D iscontinue compressio n stockings (IRASEMA hose).Ster istrips will fall off within 1 week. [id number] Faby Bonilla NP [facility] [address] [address],[address] [place] [id number] 06/10/2023 11:11:02 06/10/2023 11:50:59 Osteoarthritis of right knee joint 7527451260 70287 M17.11 Pain of ri ght knee joint 3904554440 21495 M25.561 Mechanical complication of internal joint prosthesis 527726296 T84.092D May resume golfMay driveMay get in pool/hot tub/bath tubMay apply lotions/cr eamsActivi ty as toleratedN o dental work for 6 more weeksConti nue to Ice as needed for swelling.S tanding 3 views of the right knee shows an intact prosthesis in satisfacto ry position and alignment. [id number] Crispin Tai MD [facility] [address] [address],[address] [place] [id number] 7 01/21/2024 14:06:54 01/21/2024 15:42:04 Pain of left wrist 7740849384 89954 M25.532 Her office radiograph s reveal a minimally displaced DRF with some interval healing. I have recommende d continued casting for 3 weeks follow by PT at [facility]. Closed Col les' fracture 658349982 S52.531A S52.532A [id number] Crispin Tai MD [facility] [address] [address],[address] [place] [place] [id number] 02/11/2024 14:47:53 02/11/2024 16:52:02 Pain of left wrist [id number] M25.532 Her office radiograph s reveal a healed and minimally displaced DRF. I have recommende d PT ([facility]). Final f/u in 2 months Closed Col les' fracture [id number] S52.531A S52.532A Health Concerns Section Related Observation LastModified by Organization [employer] LastModified Time None Recorded Concern Status LastModified by Organization Details LastModified Time None Recorded Advance Directives Directive None Recorded Payers Insurance Date Sequence Insurance Name Policy Number Policy [place] Covered Member ID [place] Member ID Guarantor Name 04/15/2024 1 [place] Dagmar Flores [id number] Dagmar Flores 04/15/2023 2 [place] 106 Nik Flores [id number] Dagmar Flores 04/15/2024 2 [place] 106 Nik Flores [id number] Dagmar Flores Notes Date Note Type Note Provider Name and Address Organization Details Recorded Time 04/10/2023 text/html Knee- Eda ambrose bypatient.Quality: aching; stabbing; dull Severity:pain level 5/10 Duration:continuou s since onset Timing:chronic Alleviating Factors:ice; rest; OTC medication; NSAIDs Aggravating Factors:standing; bending/squatting; going from sit to stand; upstairs Associated Symptoms:no numbness; no tingling; no redness;weakness;s welling;instabilit y This patient presents here today for a pre operative appointment for GLORIA LOZOYA ZIMMER 04/21/2023 after failed conservative care which includes:, NSAID's, activity modifications, and weight reduction Faby Bonilla NP [address] [place] [address],[address] [address], [facility] 04/10/2023 10:44:57 05/08/2023 text/html Knee- Eda ambrose bypatient.Location :right Quality:aching; stabbing; dull Severity:pain level 4/10 Duration:continuou s since onset Timing:chronic Alleviating Factors:ice; rest; OTC medication; narcotics; NSAIDs Aggravating Factors:standing; bending/squatting; going from sit to stand; upstairs Associated Symptoms:no tingling; no redness; no instability; no drainage; no fever;weakness;num bness;swelling;war mth Faby Bonilla NP [address] [facility] [address] [place] [phone], [facility] 05/08/2023 08:28:35 06/10/2023 text/html Knee- Eda ambrose bypatient.Location :right Quality:aching; stabbing; dull Severity:pain level 5/10 Duration:continuou s since onset Timing:chronic Alleviating Factors:ice; rest; OTC medication; narcotics; NSAIDs Aggravating Factors:standing; bending/squatting; going from sit to stand; upstairs Associated Symptoms:no tingling; no redness; no instability; no drainage; no fever;weakness;num bness;swelling;war mth Faby Bonilla NP [address] [place] [address],[address], [place], [address], [facility] 06/10/2023 11:46:55 01/21/2024 text/html Wrist/HandReport ed bypatient.Hand Dominance:right Location:left Quality:aching; dull Severity:pain level 5/10 Fracture History Pain is located in the left wrist. The patient is s/p a fall on 12/30/23 out of her motor home in [facility]. She was was seen by an Orthopedic surgeon there and placed in a cast. LHD. Taking Tylenol. Crispin Tai MD [address], [place], [address], [facility] 01/21/2024 15:38:03 02/11/2024 text/html Wrist/HandReport ed bypatient.Hand Dominance:right Location:left Quality:aching; dull Severity:pain level 4 5/10 Fracture HistoryPain is located in the left wrist. The patient is s/p a fall on 12/30/23 out of her motor home in [place]. She was was seen by an Orthopedic surgeon there and placed in a cast. She is tolerating the cast. Crispin Tai MD [address] [facility] [address], [place], [address], [facility] 02/11/2024 16:47:35 OBGyn Episode No OBEpisode recorded.
--- OUTSIDE RECORDS SUMMARY | 2024-08-25 12:24 | XMS_ITS | Data Portability ---
Author Organization [facility] Address [address] [facility] [address] [place] [address] Care Team Providers Care Clinical Microbiologist Name Role Phone ALDA HERRERA Psychologist Clinical REKHA SKY Primary Care Provider [phone] Assessment Encounter Date Assessment Date Assessment LastModified by Organization Details LastModified Time 10/31/2019 10/31/2019 Assessment: 1. syncope and near syncope 2. I suspect this is hypotension 3. I do not think hypoglycemia or seizure she will need further eval with her caramel candy maker helper I will talk with her after some screening bloood tetst Plan: 1. submit blood tests B12, TSH, CBC, CMP. T4, ESR, B1 2. follow-up in 1 year [email or web address] Not available 11/08/2019 07:56:36 10/30/2020 10/30/2020 1. Transient neurological events, etiology not known 2. Recent ED/ Hospital at [facility] in October no abnormality identified 3. No syncope 4. Episode of right facial twitches during low blood sugar 5. Recent carotid US report good flow w/o stenosis recent echo at [facility] normal echo, EF 60 - 70 % pacemaker evaluation give good results 5. Pacemaker good reports with evals 6. Empiric levetiracetam 1000 mg bid started approx 15 years started due to episodes suspected possible seizure 7. Tramadol; she uses rarely I advised don't take tramadol due to risk of trigger seizuree 8. Anti-coagulated history of atrial fib 9. Uses midodrine Plan 1. I do not have conclusion what more to do 2.She is protected from Seizure on levetiracetam 3. I will discuss with her caramel candy maker helper about next steps [email or web address] Not available 12/02/2020 17:42:14 07/29/2023 07/29/2023 Assessment: 1. Syncope 2. Near-syncope 3. Follows with Dr[facility] 4. Has pacemaker 5. Takes midodrine 2.5 1 in AM and 1 prn in afternoon 6. Epilepsy 7. Free of seizure 8. disease controlled by levetiracetam 500 mgm x 1 bid 9. Neuropathy in hands and feet better with gabapentin 300 mgm x 1 in AM and 3 at bed 10 Asthma currently on levaquin for bronchitis Plan: 1. check blood tests for factors related to memory Not available 08/02/2023 16:43:33 09/01/2023 09/01/2023 Assessment: 1. Epilepsy, free of seizure 2. Disease controlled by Keppra 500mg 3. Syncope and near-syncope, not prevented by cardiac pacemaker 4. Likely the cause is a drop in blood pressure 5. She has midodrine 2.5mg, takes on variable basis --today she vows that she will take regularly the morning tablet 6. Neuropathy, treated by gabapentin 7. Asthma 8. Memory impairment --started vitamin B1 supplements 9 Thiamine deficiency Plan: 1. Today I encouraged that she take the midodrine tablet each morning, I agree she can skip the afternoon dose due to insomnia 2. Continue Vitamin B1 100mg, twice per day 3. Continue Vitamin B12 supplement 4. I advised I will retire Feb, f/up in 6 months 5. Follow up prior to their trip back to [place] in December 2023 (schedule for the end november) [email or web address] Not available 09/02/2023 21:55:36 12/01/2023 12/01/2023 Assessment: 1. Epilepsy 2. Free of seizure 3. Disease controlled on LEV 4. Abnormal gait, uses cane or walker 5. Memory impairment; she says improved with 6 months of oral vitamin B1 and B12 6. Thiamine deficiency 7. Chronic pain Plan 1. Continue LEV 2. Continue oral B1 and oral B12 3. Check blood level B1 and B12 today 4. renew gabapentin 300 mg x 1 caps AM and 3 caps hs 5. Pt is aware that I retire June 06, 2024 6. I scheduled follow up with Dr. Maureen Mariano in this department in July, Not available 12/02/2023 06:27:19 Plan of Treatment Reminders Order Date Submit Date Provider Last Modified By Organization Details Last Modified Time Details Appointments NEUROLOGY RECHECK 2024 10:00A M MAUREEN MARIANO DO Not available Not available Not available Lab vitamin B1 (thiamine ), blood 2023 024 [email or web address] [facility], [address] [place] [address], [phone], 12/08/2023 08:49:07 vitamin B12, serum 2023 024 [facility], [address] [place] [address], [phone], 12/01/2023 14:04:29 vitamin B1 (thiamine ), blood 2023 024 [facility], [address] [place] [address], [phone], 08/01/2023 23:23:42 vitamin B12, serum 2023 024 [facility], [address] [place] [address], [phone], 07/29/2023 17:23:01 TSH, serum or plasma 2023 024 [facility], [address] [place] [address], [phone], 07/29/2023 16:56:56 Referral None recorded. Procedures None recorded. Surgeries None recorded. Imaging None recorded. Medication Orders levetirac etam 500 mg tablet 2023 024 [facility], [facility], [place], [address], 12/01/2023 12:20:25 Patient TargetsNo targets recorded. Patient Instructions Encounter Date Encounter Id Patient Instructions Last Modified By Organization Details Last Modified Time 10/31/2019 [id number] fainting: care instructions [email or web address] Not available 11/08/2019 16:48:10 lightheadedness or faintness: care instructions [email or web address] Not available 11/08/2019 16:48:10 lightheadedness or faintness: care instructions Not available 11/08/2019 16:48:10 Reason for Referral None Reported. Results Created Date Observation Date Name Description Value Unit Range Abnormal Flag Note LastModifiedBy Organization Detail LastModifiedTime 07/29/19 24 07/29/2023 TSH TSH 1.280 u[IU] /mL 0.270- 4.200 normal Not Available [facility] [address] [place], [address], 07/29/2023 16:56:56 07/29/19 24 07/29/2023 VITAM IN B12 vitamin B12 367 pg/mL 232-12 45 normal Not Available [facility] [address] [place] [address], [phone], 07/29/2023 17:23:01 07/29/19 24 08/01/2023 VITAM IN B1 vitamin B1 <6 nmol/ L 8-30 low (Note ) Vitam in suppl ement ation withi n 24 hours prior to blood draw may affec t the accur acy of the resul ts. This test was devel oped and its mercedes tical perfo rmanc e ricco cteri stics have been deter mined by [facility]. It has not been clear ed or appro young by FDA. This assay has been valid ated pursu ant to the CLIA regul ation s and is used for clini phyllis purpo ses. MDF med fusio n [address] [facility] [address] [facility] [address] [phone] Cong Lee MD, PhD Not Available [facility] [address] [place], [address], 08/01/2023 23:23:42 12/01/19 24 12/01/2023 VITAM IN B12 vitamin B12 1303 pg/mL 232-12 45 high Not Available [facility] [address] [place], [address], 12/01/2023 14:04:28 07/29/19 24 05/25/2023 CT, head, w/o contr ast No observ ation record ed. [email or web address] Not Available 2023 15:08:20 Result Notes None recorded. Problems Name Problem SNOMED Code Status Onset Date Resolution Date Notes Provider Name and Address Organization Details Recorded Time Diabetes mellitus 90192008 Active 017 Irais Peterson [facility] 7 09:18:21 Memory impairment 746127241 Active 018 Susan (Maye) Navjot [facility] 8 16:40:13 Syncope 387409961 Active 020 Mimi Pires [facility] 0 07:40:45 Near syncope 870660774 Active 020 Mimi Pires [facility] 0 07:40:46 Problem Notes None recorded. Procedures Surgical History Date Name Laterality Status Provider Name and Address Organization Details Recorded Time 05/15/19 23 total knee replacement completed Meche Angel [facility] 07/29/2023 15:05:27 [facility] 15:12:42 biopsy of skin completed [facility] 09/01/2023 15:12:56 Imaging Results None recorded. Procedure Notes None recorded. Medical Equipment None Reported. Allergies Allergen ID Allergen Name Allergen Category Reaction Reaction Severity Criticality Documentation Date Start Date Code Code System Note Provider Name and Address Organization Details Recorded Time 700690 Dilaudid medicatio n hives itching Not available Not available Not available 01/31/20162012 38475 3 RxNorm Meche Angel [facility] 4 14:56:00 512050 codeine medicatio n itching rash Not available Not available Not available 01/31/20162012 2670 RxNorm Meche Angel [facility] 4 14:56:07 Medications Name Sig Start Date Stop Date Status Note LastModified by Organization Details LastModified Time Singulair 10 mg tablet Daily active mont[place] ast Not Available Not Available Not Available Tambocor 100 mg tablet Every twelve hours 10/22 completed Frequenc y: q12h;Med ication Descript ion: flecaini de; Route:or al; refills: 0 Not Available Not Available Not Available atorvasta tin 40 mg tablet Take 1 tablet every day by oral route. active Not Available Not Available No t Available trazodone 50 mg tablet Take 1 tablet every day by oral route. 07/28 completed Not Available Not Available Not Available levetirac etam 500 mg tablet 1 bid 2023 active Not Available Not Available Not Avai lable Effexor XR 37.5 mg capsule,e xtended release Daily active venlafax ine Not Available Not Available Not Available midodrine 5 mg tablet Take 1 tablet twice a day by oral route. active 12/01/23 - takes once daily (occasio jane twice daily) Not Available Not Available Not Available atenolol 25 mg tablet Daily 10/22 completed Frequenc y: daily;Me dication Descript ion: atenolol ; Dosage:1 ; Route:or al; refills: 0 Not Available Not Available Not Available omeprazol e 40 mg capsule,d elayed release Take 1 capsule every day by oral route. active Not Available Not Available No t Available tramadol 50 mg tablet Take 1 tablet as needed by oral route. 07/28 completed Not Available Not Available Not Available Lipitor 20 mg tablet Every night at bedtime 07/28 completed Frequenc y: qhs;Medi cation Descript ion: atorvast atin; Dosage:1 ; Route:or al; refills: 0 Not Available Not Available Not Available Advair Diskus 250 mcg-50 mcg/dose powder for inhalatio n Two times a day 07/28 completed Frequenc y: bid;Medi cation Descript ion: fluticas one-salm eterol; Dosage:1 inhalati on; Route:in halation ; refills: 0 Not Available Not Available Not Available nitroglyc juanito 0.4 mg sublingua l tablet As needed active Instruct ions: take 1 prn chest pain, may repeat q 3-5 min x2;Frequ ency: prn;Medi cation Descript ion: nitrogly cerin; Dosage:1 ; Route:rebolledo blingual ; refills: 0 Not Available Not Available Not Available gabapenti n 300 mg capsule Take 1 capsule 4 times a day by oral route. active 12/01/23 - takes 1 QAM and 3 QHS Not Available Not Available Not Available raloxifen e 60 mg tablet Take 1 tablet every day by oral route at bedtime. active Not Available Not Available No t Available Ambien 10 mg tablet Take 1 tablet as needed by oral route. 07/28 completed Not Available Not Available Not Available Vitamin B1 (Thiamine ) 100 mg tablet Take 1 tablet every day by oral route. active Not Available Not Available No t Available vitamin O36-ymwqj acid injection solution Take by injectio n route. 11/30 completed Not Available Not Available Not Available Spiriva with [employer] r 18 mcg and inhalatio n capsules Daily 07/28 completed Frequenc y: daily;Me dication Descript ion: tiotropi um; Route:in halation ; refills: 0 Not Available Not Available Not Available vitamin B12 0.5 mg-folic acid 1 mg tablet Take 1 tablet every day by oral route. active Not Available Not Available No t Available calcium active Medicati on Descript ion: calcium carbonat e; Route:or al; refills: 0 Not Available Not Available Not Available Coumadin Daily 07/28 completed Frequenc y: daily;Me dication Descript ion: warfarin ; Dosage:a s directed ; refills: 0 Not Available Not Available Not Available biotin 10/30 completed Medicati on Descript ion: biotin; refills: 0 Not Available Not Available Not Available Glucosami ne Daily active Not Available Not Available Not Available Neurontin Bedtime 07/28 completed Instruct ions: 1 hs for nerve pain. May ^ q 7d if needed to 2 hs; 1 am, 2 hs; 2 am, 2 hs ;Frequen cy: hs;Medic ation Descript ion: gabapent in; Dosage:1 ; Route:or al; refills: 0 Not Available Not Available Not Available Vitamin D3 5000 IU Daily active Not Available Not Available No t Available Keppra 1,000 mg tablet Two times a day 07/28 completed Frequenc y: bid;Medi cation Descript ion: levetira cetam; Route:or al; refills: 0 Not Available Not Available Not Available Ranexa 1,000 mg tablet,ex tended release Take 1 tablet twice a day by oral route. 07/28 completed Not Available Not Available Not Available Multaq 400 mg tablet Take 1 tablet twice a day by oral route. 07/28 completed Not Available Not Available Not Available Eliquis 5 mg tablet Take 1 tablet twice a day by oral route. active Not Available Not Available No t Available Trelegy Ellipta 100 mcg-62.5 mcg-25 mcg powder for inhalatio n Inhale 1 puff every day by inhalati on route. active Not Available Not Available No t Available vitamin B12 2,500 mcg-folic acid 400 mcg disintegr ating tablet Take by oral route. 11/30 completed Not Available Not Available Not Available albuterol 90 mcg-budes onide 80 mcg/actua tion HFA aerosol inhaler Inhale as needed by inhalati on route. active Not Available Not Available No t Available Vitals Date Recorded Body weight Body mass index (BMI) Body height Heart rate Oxygen saturation Oxygen saturation in Arterial blood by Pulse oximetry Systolic blood pressure Diastolic blood pressure Provider Name and Address Organization Details Last Updated DateTime 4 13117.5 9 g 29.9 kg/m2 154.94 cm 79 /min 98 % 98 % 118 mm[Hg] 64 mm[Hg] Meche Angel [facility] 4 15:06:50 Date Recorded Body height Heart rate Oxygen saturation Oxygen saturation in Arterial blood by Pulse oximetry Systolic blood pressure Diastolic blood pressure Provider Name and Address Organization Details Last Updated DateTime 4 154.94 cm 80 /min 98 % 98 % 122 mm[Hg] 76 mm[Hg] Sindy Frederick [facility] 4 15:15:21 Date Recorded Body weight Systolic blood pressure Diastolic blood pressure Provider Name and Address Organization Details Last Updated DateTime 10/31/2019 04767.07 g 112 mm[Hg] 72 mm[Hg] Salima SorensenQueen [facility] 10/31/2019 15:37:23 Date Recorded Body height Provider Name an d Address Organization Details Last Updated DateTime 10/30/2020 154.94 cm Bethanie Huerta [facility] 10/30/2020 10:24:26 Date Recorded Body height Body mass index (BMI) Body weight Heart rate Oxygen saturation Oxygen saturation in Arterial blood by Pulse oximetry Systolic blood pressure Diastolic blood pressure Provider Name and Address Organization Details Last Updated DateTime 4 154.94 cm 29.3 kg/m2 23096.8 2 g 72 /min 98 % 98 % 110 mm[Hg] 64 mm[Hg] Meche Ortiz [facility] 4 11:53:17 Social History Question Answer Notes LastModified by Organizat ion Details LastModified Time Tobacco Smoking Status Never Smoker [facility] 10/22/2016 09:20:09 What Was The Date Of Your Most Recent Tobacco Screening? 12/01/2023 [email or web address] Information not available 12/01/2023 On What Date Was Tobacco Cessation Counseling Provided? 09/12/2019 [email or web address] Information not available 09/12/2019 Sex: Female Functional Status None recorded. Mental Status None recorded. Family History Relationship Description Onset Age of this Age Resolved Age Notes LastModified by Organization Details LastModified Time Father Diabetes mellitus [email or web address] Not available 10/22 09:18:40 Father Cataract Not available 11/03/2017 11:14:18 Father Glaucoma Not available 11/03/2017 11:14:18 Father Heart disease [email or web address] Not available 10/22 09:19:48 Father Family history of stroke Not available 2017 11:14:18 Mother Diabetes mellitus [email or web address] Not available 10/22 09:18:40 Mother Cataract Not available 11/03/2017 11:14:18 Mother Glaucoma Not available 11/03/2017 11:14:18 Mother Heart disease [email or web address] Not available 10/22 09:19:48 Mother Family history of stroke Not available 2017 11:14:18 Unspecified Relation Family history of malignant neoplasm Not available 10/22 09:19:14 Sister Heart disease [email or web address] Not available 10/22 09:19:48 Medical History Condition Response Diabetes Y Coronary Artery Disease N Other N Thyroid Disease N Congestive Heart Failure (CHF) N Gallbladder Disease N Stroke N Diverticulitis N Asthma N COPD N Crohn's Disease N Colon Polyps N Liver Disease N Heart Disease N Heart Attack ([place]) N Hypertension N Kidney Disease N Glasses/Contacts Y Gynecological HistoryNo gynecological history recorded. Obstetrics History GPAL:G 0 P 0 0 0 0 Immunizations Vaccine Type Date Status Note Provider Nam e and Address Organization Details Recorded Time Influenza, split virus, quadrivalent, preservative 9 completed Salima Gage [facility] 09/12/2019 16:30:36 Past Encounters Encounter ID Performer Location Encounter Start Date Encounter Closed Date Diagnosis/Indication Diagnosis SNOMED-CT Code Diagnosis ICD10 Code Diagnosis Note [id number] ALDA HERRERA MD [facility] [address] [place] [address],[address] [place] [address] 10/22/2016 09:07:45 10/23/2016 08:27:56 Type 2 diabetes mellitus without complication 079574955 E11.9 I discussed diabetes with this patient. I discussed the importance of sugar control for reducing risk of diabetic complicati ons in the eyes. I recommened they follow up with their PCP/endocr inologist for continue sugar evaluation /managemen t. Also discussed importance of cardiovasc ular risk reduction. Call with changing/f luxuating vision.no retinopath y ouhas had foot exam1 year Incipient senile cataract 638286705 H25.099 mild update mrx.use higher lighting. [id number] BLANCA KATE MD [facility] [address] [place] [address] 10/22/2017 14:45:50 10/23/2017 07:27:38 Memory impairment 568374400 R41.3 [id number] BLANCA KATE MD [facility] [address] [place] [address] 11/04/2017 08:32:53 11/04/2017 09:52:46 Memory impairment 533166042 R41.3 Diabetes mellitus 876283 09 E11.9 Cerebral atrophy 1996369 00 G31.9 Small vess el cerebrovascular disease 880300670 I67.9 Vitamin B1 2 deficiency (non anemic) 52079929 E53.8 [id number] ALDA HERRERA MD [facility] [address] [place] [address] 11/04/2017 12:30:03 11/04/2017 16:07:43 Type 2 diabetes mellitus without complication 201807836 E11.9 I discussed diabetes with this patient. I discussed the importance of sugar control for reducing risk of diabetic complicati ons in the eyes. I recommened they follow up with their PCP/endocr inologist for continue sugar evaluation /managemen t. Also discussed importance of cardiovasc ular risk reduction. Call with changing/f luxuating vision.no retinopath y ou 1 year Nuclear sc lerotic cataract 582353500 H25.13 progressin g ou today discussed ce vs mrx vs obs. pt would like to think about this. [id number] BLANCA KATE MD [facility] [address] [place] [address] 1 09/12/2019 15:13:24 09/12/2019 17:08:47 Memory impairment 629291418 R41.3 [id number] BLANCA KATE MD [facility] [address] [place] [address] 1 10/31/2019 14:26:36 10/31/2019 16:35:08 Syncope 355756475 R55 Near syncope 420582263 R 55 Memory impairment 876221 006 R41.3 [id number] BLANCA KATE MD [facility] [address] [place] [address] 1 10/30/2020 10:20:39 10/30/2020 11:41:05 Syncope 491886370 R55 Memory impairment 378601 006 R41.3 Near syncope 392741947 R 55 [id number] BLANCA KATE MD [facility] [address] [place] [address] 1 07/29/2023 14:21:21 08/05/2023 11:26:39 Memory impairment 566516954 R41.3 [id number] BLANCA KATE MD [facility] [address] [place] [address] 1 09/01/2023 14:49:37 09/03/2023 16:36:07 Epilepsy 45599611 G40.909 Long-term current use of drug therapy 999317915 Z79.899 Neuropathy 200252164 G62 .9 [id number] BLANCA KATE MD [facility] [address] [place] [address] 12/01/2023 11:31:02 12/07/2023 04:07:12 Epilepsy 15142116 G40.909 Memory impairment 231323 006 R41.3 Long-term current use of drug therapy 383460398 Z79.899 Health Concerns Section Related Observation LastModified by Organization Detai ls LastModified Time None Recorded Concern Status LastModified by Organization Details LastModified Time None Recorded Advance Directives Directive None Recorded Payers Insurance Date Sequence Insurance Name Policy Number Policy Chavarria Covered Member ID Chavarria Member ID Guarantor Name 11/20/2017 2 [id number] BC[place] OF [facility] [employer] Dagmar Flores 07/31/2024 2 [place] BC[place] OF [facility] [employer] 106 Nik [place] Sandra [id number] Dagmar Flores 07/31/2024 1 [place] Dagmar Flores [id number] Dagmar Flores Notes Date Note Type Note Provider Name and Address Organization Details Recorded Time 10/31/2019 text/html Hospital follow- up 69 year old woman episodes of syncope and near syncope they have had two trips to hospitals and say don't know info from these trips Thursday -felt weak -lost consciousness -hit head took her to [facility] CT of head, troponin levels OK second event -outside -felt weak -lost conciousness friend called says she was awake incoherent clammy she has only vague memories of events went again to [facility] ED glucose was said to be in the 40's was given juice and PB pacemaker in situ BLANCA KATE MD [facility] [place], [address], [facility] 11/08/2019 07:56:43 10/30/2020 text/html Hospital follow- up 69 year old woman recent episode of syncope with trip to ED episodes of syncope and near syncopeA recent episode evening, about 6:30 PMshe went to bedroom saw her with right eye twitching and corner of right sdide mouth twitching then in ands out of aweareness, elizabeth lay back on bed, seems sleep-like with in 5 - 10 minutes she improvessituation self corrects EMT arrive, glucose 650given syringe of glucoseBill recalls BP somewhat low but not worrisome Taken to ED , admitted to [facility] Brain CT negative/ normal Overnight , she improvesnext AM she is betterhusband reports she was improved by late evening they do not report any swing in BP, they do not report any swing in blood sugar at another day, saw Dr. Samy Sky, no conclusion BLANCA KATE MD [address] [place] [address], [address], [facility] 12/02/2020 17:42:22 07/29/2023 text/html Recheck for epil epsy73 year old woman from [place]. She is present with , Norberto. They live part of the year in [place]. Our last meeting was in 2020 we spoke of syncope, memory impairment and episodes of light headiness. EpilepsyToday we discussed epilepsy, she currently takes Keppra 500 mg x 1 tablet, BID.this has kept her seizure free She also takes gabapentin 300mg dosing 1 capsule, BID. Head CT w/o contrast (05/25/2023)Today, we discussed her head CT (05/25/2023) she has volume loss, age related white matter changes. There is no large area of stroke, no hydrocephalus, and no tumor. BLANCA KATE MD [address] [place] [address], [phone], [facility] 08/02/2023 16:43:53 09/01/2023 text/html Recheck for sync ope73 year old woman. She is present with her , Norberto. She is here to discuss lab data and to discuss syncope. Recent lab data (07/29/2023)vitamin B1 deficiency, < 6 (normal range 8-30)B12- 367 (low normal 230-1230)TSH- 1.280 (normal) She takes midodrine 2.5mg dosing 1 tablet on a variable schedule. She does not take a second dose due to insomnia. The patient has a pacemaker and reports that her caramel candy maker helper was unable to find a cause for syncope and near-syncope. 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 She is present with her , Norberto. one particular issue, she thinks memory is better since taking vitamin B1 and vitamin B12 this is good news I will ask her to submit re-check of Vitamin B1 and B12 level today or this week Impaired gaitShe sometimes uses a cane or walker. She had a bad fall this year while visiting her at [facility]. Today, she has a front wheel rear post walker.I encouraged stay faithful to use cane or walker Impaired MemoryShe feels her memory is better. she thinks improved with B1 and B12 Currently for memory she is taking vitamin B1 and Vitamin B12 everyday. EpilepsyDisease controlled by Keppra 500 mg x 1 tablet, BID. Nerve painBenefit with gabapentin 300mg dosing 1 capsule in morning and 3 capsules at bedtime. BLANCA KATE MD [facility] [place], [address], [facility] 12/06/2023 14:01:51 OBGyn Episode No OBEpisode recorded.
--- OUTSIDE RECORDS SUMMARY | 2024-08-25 12:24 | XMS_ITS | Patient Health Record ---
Author Organization [facility] [employer] [facility] Address [address] [place], [place] [id number] Care Team Providers Care Licensed Physical Therapist Name Role Phone BLANCA HERNANDEZ Primary Care Provider [phone] Reason For Referral No Information Plan Of Treatment No Information Insurance Providers Payer Name Payer Address Payer Phone Subscriber Number Group Number Insured Name Patient Relationship to Insured Coverage Start Date Coverage End Date Medicare of [place] [employer] [address] [address] [place] [address] [id number] PART A ONLY IDA MOTLEY Other [facility] [employer] [address] [place] [address] [id number] null, null Other [facility] [employer] [address] [place] [address] [phone] [id number] null, null Other
--- OUTSIDE RECORDS SUMMARY | 2024-08-25 12:26 | XMS_ITS | Patient Health Record ---
Author Organization [place], [facility] Address [address] [place] [address] Care Team Providers Care Spiritual Advisor Name Role Phone Joy PUENTES, Fran Primary Care Provider Piero Miranda MD, [facility] Unavailable Allergies Allergen (clinical drug ingredient) Drug/Non Drug Allergy documented on EMR Reaction Allergy Type Onset Date Status hydromorphone Dilaudid Unknown Drug Allergy Act lico codeine Codeine Unknown Drug Allergy Active Results Component Value Reference Range Notes Pathology Report Reviewed date:05/13/2024 09:54:04 PM Interpretation: Performing Lab: Notes/Report: Reason For Referral No Information Medications Medication SIG (Take, Route, Frequency, Duration) Notes Start Date End Date Status Atorvastatin Calcium 40 MG TAKE 1 TABLET ONCE DAILY Oral for 90 Days Active Sucralfate 1 GM Oral for 30 Days Active Celecoxib 100 MG TAKE ONE CAPSULE BY MOUTH TWICE A DAY WITH FOOD Oral for Not Available Active Albuterol Sulfate HFA 108 (90 Base) MCG/ACT 1 puff as needed Inhalation every 4 hrs 05/03/2024 Active Omeprazole 40 MG Oral for 30 Days Active ALPRAZolam 0.25 MG Oral for 10 Days Active Ranolazine ER 1000 MG Oral for 90 Days Active Midodrine HCl 5 MG Oral for 30 Days Active Albuterol Sulfate (2.5 MG/3ML) 0.083% USE 1 VIAL IN NEBULIZER EVERY 6 HOURS NEEDED Inhalation for 15 Days Active Montelukast Sodium 10 MG TAKE 1 TABLET O NCE DAILY Oral for 90 Days Active levETIRAcetam 500 MG Oral for 90 Days Active Metoprolol Tartrate 25 MG Oral for 90 Days Active Eliquis 5 MG Oral for 90 Days Active Gabapentin 300 MG Oral for 90 Days Active Trelegy Ellipta 200-62.5-25 MCG/ACT USE 1 INHALATION ORALLY DAILY. RINSE MOUTH AFTER EACH USE. Inhalation for 30 Days Active DULoxetine HCl 30 MG Oral for 30 Days Active Venlafaxine HCl 37.5 MG Oral for 30 Days Active Social History Tobacco Use: Social [...] has 2 glasses of wine per night Per patient has 2 glasses of wine per night Problems Problem Type SNOMED Code ICD Code Onset Dates Problem Status W/U Status Risk Notes Problem Anemia due to chronic blood loss (disorder) (874584281) Iron deficiency anemia secondary to blood loss (chronic) (D50.0) 05/03/19 Active confirmed Problem Gastro-esophageal reflux disease without esophagitis (504580584) Gastro-esophag eal reflux disease without esophagitis (K21.9) 06/01/19 Active confirmed Problem Gastroduodenitis (043006112) Gastritis, unspecified, without bleeding (K29.70) 06/01/19 Active confirmed Problem Heartburn (67917330) Heartburn (R12) 05/03/19 Active confirmed Problem Dysphagia (85352619) Dysphagia, unspecified (R13.10) 06/01/19 Active confirmed Problem History of bariatric surgical procedure (833403078) Bariatric surgery status (Z98.84) 06/01/19 Active confirmed Vital Signs Heart Rate 80 /min 05/31/2024 Blood pressure diastolic 77 mm Hg 05/31/2024 Height 61 in 05/03/2024 Blood pressure systolic 140 mm Hg 05/31/2024 Weight 145 lbs 05/31/2024 BMI 27.39 kg/m2 05/03/2024 Procedures Procedure Date Ordered Date Performed Result Body Sit e EGD 05/03/2024 N/A Encounters Encounter Location Date Provider Diagnosis [facility] [address] [place] [address] 05/05/2024 Negro Miranda [facility], [facility] [address] [place] [address] 05/31/2024 Negrojesus Miranda Gastro-esophageal reflux disease without esophagitis K21.9 ; Gastritis, unspecified, without bleeding K29.70 ; Dysphagia, unspecified R13.10 and Bariatric surgery status Z98.84 [facility], [facility] [address] [place] [address] 05/03/2024 Negrojesus Miranda Iron deficiency anemia secondary to blood loss (chronic) D50.0 and Heartburn R12 Assessments Encounter Date Diagnosis (ICD Code) Assessment Notes Treatment Notes Treatment Clinical Notes Section Notes 05/03/2024 Iron deficiency anemia secondary to blood loss (chronic) (ICD-10 - D50.0) EGD Eliquis is on hold If EGD negative needs Capsule study and colonoscopy Procedure of EGD, its indications, risks, benefits, complications and alternative were discussed with patient in detail with the help of pictures. Risk of sedation, potential respiratory and cardiac complications and their treatment were discussed in detail. Risk of extended hospitalization and possibility of surgical intervention was discussed should one of these complications happen. Ample opportunity was given to the patient to ask questions. All of the patients questions were adequately answered. Patient understands that he/she can call my office at anytime for further questions. Written instructions and information on the procedure were given to the patient. Anti Reflux measures were discussed. Advised patient [...] foods. Also discussed with the patient the intermediate accountant side effects of PPI use which include , interstitial nephritis, rarely renal failure osteoporosis and hypomagnesemia Findings, clinical impression, treatment, evaluation plan and other evaluation plans were discussed. Advised the patient to call us sooner if any of the symptoms have changed. Patient verbalizes understanding and is willing to follow through. Portions of this document are generated by voice recognition technology and phonetic error may occur, Iron Deficiency Anemia: Care Instructions material was published 05/03/2024 Heartburn (ICD-10 - R12) 05/31/2024 Gastro-esophag eal reflux disease without esophagitis [...] foods. Also discussed with the patient the intermediate accountant side effects of PPI use which include [...] status (ICD-10 - Z98.84) Plan Of Treatment Pending Test Test Name Order Date EGD 05/03/2024 Next Appt Details Provider Name:Negro Villasenor , 09/29/2028 11:00:00 AM, [address], [place], [address], Insurance Providers Payer Name Payer Address Payer Phone Subscriber Number Group Number Insured Name Patient Relationship to Insured Coverage Start Date Coverage End Date MEDICARE [address] [place] [address] [id number] SandraDagmar lozano Self - patient is the insured [facility] ([facility]) [address] [place] [address] [id number] Sandra, Dagmar Self - patient is the insured Medical (General) History Medical History History ICD Code Atrial fibrillation s/p ablation Hyperlipidemia Hypotension Myocardial Infarction Colonoscopy done 09/2023 per patient neg ative EGD done on 05/05/2024 Previ ous surgery in Gastric remnant, Gastritis, Reflux, Esophageal Dysmotility (Dilation) Surgical History Surgery Date(Month/Year) Knee Replacement 02/2024 Pacemaker, Cardiac Cardiac Ablation Gastric Bypass Liyah Fundoplication
--- OUTSIDE RECORDS SUMMARY | 2024-08-25 12:26 | XMS_ITS | Encounter Summary ---
Author Organization Healthcare Address [address] [place] [address] Care Team Providers Care Signalling And Communications Engineer Name Role Phone Charles Barrett MD Primary Care Provider [phone]- [phone] Encounter Details Date Type Department Care Team (Late st Contact Info) Description 08/05/2024 Telephone Cardiac Imaging [address] [place] [address] Tata Johnson Social History Tobacco Use Types Packs/Day Years [...] often do you attend chur ch or evangelical services? More than 4 times per year 11/25/2023 Do you belong to any clubs o r organizations such as scientology groups, unions, fraternal or athletic groups, or [...] place to sleep or slept in a fpc (including now)? No 11/23/2023 Utilities Answer Date [...] on file documented as of this encounter Miscellaneous Notes * Telephone Encounter - Tata Johnson - 08/05/2024 8:44 AM EDT Patient returned call reporting she is traveling in motor home and has bedside monitor. We assistedwith soft reset and received Dagmar Flores ABT device report 08-05-2024 and attached. Please call [employer] at [phone] or call [facility] [phone] for assistance. Thank you. documented in this encounter Plan of Treatment Upcoming Encounters Date Type Department Care Team (Late st Contact Info) Description 11/23/2024 11:40 AM EDT Office Visit [facility] [place] [address] [phone] Indu Grimes MD [address] [place] [id number] 12/08/2024 9:40 AM EDT Office Visit [facility] [place] [address] [phone] Sylvester Farr MD [address] [place] [address] documented as of this encounter Visit Diagnoses Not on filedocumented in this encounter Additional Health Concerns Assessment Noted Time A fall risk assessment has been complete d for the patient 01/07/2024 11:10 AM EDT A Body Mass Index follow-up plan has been documented for the patient 01/07/2024 11:52 AM EDT documented as of this encounter Care Teams Signalling And Communications Engineer Relationship Specialty Start Date End Date Charles Barrett MD [address] [place] [address] PCP - General 09/11/21 documented as of this encounter
--- OUTSIDE RECORDS SUMMARY | 2024-08-25 12:26 | XMS_ITS | Clinical Summary ---
Author Organization [employer] Address [address] [place] [address] Care Team Providers Care Revenue Manager Name Role Phone Charles Barrett MD Primary Care Provider +1- [phone] Allergies Active Allergy Reactions Criticality Noted Date Comments Codeine Rash,Itching,Hives,O ther (See Comments) High 11/11/2012 1Patient states she tolerates morphine Hydromorphone Itching,Hives High 11/11/2012 Medications No known medications Social History Tobacco Use Types Packs/Day Years Used Date Smoking Tobacco: Never Passive Smoke Exposure: Never Smokeless Tobacco: Never Tobacco Cessation:Counseling Given: Not Answered Alcohol Use Standard Drinks/Week Comments Yes 0 (1 standard drink = 0.6 oz pur e alcohol) wine weekly Interpersonal Safety Answer Date Record ed Family or friends hurt you Not on file 03/27 Family or friends insult you Not on file Family or friends threaten you Not on file 0 03/27/2023 Family or friends scream or curse at you Not on file 03/27/2023 Housing Stability Answer Date Recorded Living situation today Not on file Living situation problems Not on file 2023 Food Insecurity Answer Date Recorded Food run out past 12 months Not on file 03/09 Food did not last past 12 months Not on file 03/27/2023 Employment Answer Date Recorded Help finding and keeping a job Not on file 0 03/27/2023 Family and Community Support Answer Rosalio e Recorded Help with Day to Day Activities Not on file 03/27/2023 Feeling Lonely or Isolated Not on file 03/27 Educational Attainment Answer Date Jarrett rded Speak language other than Burkinan at home Not on file 03/27/2023 Want help with school or training Not on file 03/27/2023 Depression Answer Date Recorded PHQ-2 Risk Not on file 03/27/2023 Disabilities Answer Date Recorded Difficulty concentrating Not on file 024 Difficulty doing errands alone Not on file 0 03/27/2023 Substance Use Answer Date Recorded Used prescription meds for non-medical reasons N ot on file 03/27/2023 Used illegal drugs past 12 months Not on file 03/27/2023 Comments Unknown Sex and Gender Information Value Date Recorded Sex Assigned at Not on file Legal Sex Female 5:06 PM CDT Gender Identity Not on file Sexual Orientation Not on file Last Filed Vital Signs Vital Sign Reading Time Taken Comments Blood Pressure 109/68 10/31/2023 6:05 PM EDT Pulse 66 10/31/2023 6:05 PM EDT Temperature 36.7 C (98.1 F) 10/31/2023 4:33 PM EDT Respiratory Rate 16 10/31/2023 4:33 PM EDT Oxygen Saturation 97% 10/31/2023 6:05 PM EDT Inhaled Oxygen Concentration - - Weight 68 kg (150 lb) 10/31/2023 4:33 PM EDT Height 154.9 cm (5' 1 ) 10/31/2023 4:33 PM EDT Body Mass Index 28.34 10/31/2023 4:33 PM EDT Plan of Treatment Upcoming Encounters Date Type Department Care Team (Late st Contact Info) Description 11/03/2024 3:45 PM EDT Appointment [address] [address] Health Maintenance Due Date Last Done Comments DXA SCAN 1950 Depression Screening (12+) 1960 Hepatitis C Screening 1966 Medicare Initial AWV [id number] 06/09/1999 Shingles Vaccine (Zoster) (2 of 2) 12/07/2008 10/12/2008 Respiratory Syncytial Virus (RSV) Adult or (1 - 1-dose 75+ series) 06/22/2023 COVID-19 VACCINE (2023-2 5 season) 2023 02/05/2022, 11/27/2021, 07/01/2021, Additional history exists Falls Risk Screening 03/09/2024 Tobacco Cessation Counseling and Screening (12+) 10/30/2024 10/31/2023 Influenza Vaccine (Season Ended) 2024 11/22/19 20, 12/16/2018 DTAP/TDAP/TD VACCINES (3 - T d or Tdap) 10/14/2027 10/13/2017, 09/10/2004 Pneumococcal 50+ years Completed 3, 10/13/2017, 10/07/2006 Breast Cancer Screening Discontinued 11/02/19 24, 10/30/2022, 09/26/2021, Additional history exists Procedures Procedure Name Priority Date/Time Associated Diagnosis Comments MM DIGITAL MAMMO SCREEN WITH ROLLY BILATERAL Routine 11/02/2023 3:14 PM EDT Visit for screening mammogram from Last 3 Months or Most Recently Relevant to Health Maintenance Results * MM digital mammo screen with rolly bilateral (11/02/2023 3:14 PM EDT) Anatomical Region Laterality Modality Breast Bilateral Mammography 11/04/2023 8:58 AM EDT Impressions 11/04/2023 9:06 AM EDT FINAL IMPRESSION: Stable mammogram. No findings suspicious for malignancy. Bi-RADS: ACR BI-RADS 2: Benign findings. RECOMMENDATIONS: Annual screening mammography. A letter including results and recommendations was sent to the patient. Density notification was included for patients with pattern 3 or 4 breast tissue. Patient information was entered into a reminder system with a target due date for the next mammogram. At our facility, a bear river marker is positioned over a visible skin lesion and a linear marker is used to indicate a scar. A triangular marker is placed on a self reported palpable finding. Note: Mammography does not detect approximately 10-15% of breast cancers. An annual clinical breast exam by the patient's breast care physician and regular monthly self breast exams by the patient are integral parts of breast cancer screening, in addition to annual mammography. A normal mammogram does not completely exclude the presence of breast cancer, especially if there is an abnormal finding on physical exam. When clinically indicated, a biopsy should not be deferred because of a normal mammogram report. Narrative 11/04/2023 9:06 AM EDT PROCEDURE: Digital screening mammogram with Digital Breast Tomosynthesis (DBT). REASON FOR EXAM: Routine screening. FAMILY HISTORY: Weak family history of breast cancer. COMPARISON STUDY: 2022 through 2014 from [facility] FINDINGS: Craniocaudal and mediolateral oblique images of both breasts were obtained in 2D and DBT modes. Synthesized views were reconstructed from DBT data. The breast tissue is almost entirely fatty. Reduction mammoplasty changes are present. A pacemaker battery obscures a portion of the superior left breast and left axilla. Posttraumatic oil cysts are present in the breasts. There is no evidence of dominant mass, architectural distortion, or suspicious calcifications. The mammogram was interpreted with the benefit of computer aided detection (CAD). Charles Barrett MD IMG MAMMOGRAPHY ORDERABLES Final Result from Last 3 Months or Most Recently Relevant to Health Maintenance Insurance MEDICARE PART A B BLUE CROSS/BLUE SHIELD Care Teams Revenue Manager Relationship Specialty Start Date End Date Charles Barrett MD [address] [facility] [address] [place] [address] PCP - General Family Medicine 11/19/22
--- OUTSIDE RECORDS SUMMARY | 2024-08-25 12:26 | XMS_ITS | Encounter Summary ---
Author Organization Healthcare Address [address] [place] [address] Care Team Providers Care Carbon Lamp Cleaner Name Role Phone Charles Barrett MD Primary Care Provider +1- [phone] Encounter Details Date Type Department Care Team (Late st Contact Info) Description 07/26/2024 Telephone Cardiac Imaging [address] [place] [address] Tata Johnson Social History Tobacco Use Types [...] often do you attend chur ch or episcopalian services? More than 4 times per year 11/25/2023 Do you belong to any clubs o r organizations such as worship groups, unions, fraternal or athletic groups, or [...] * Telephone Encounter - Tata Johnson - 07/26/2024 3:52 PM EDT Device Clinic called leaving with patient notifying ABT monitor not connecting with pacemaker. Please call [employer] at [phone] or call [facility] [phone] for assistance. Thank you. documented in this encounter Plan of Treatment Upcoming Encounters Date Type Department Care Team (Late st Contact Info) Description 11/23/2024 11:40 AM EDT Office Visit [facility] [place] [address] [phone] Indu Grimes MD [address] [place] [address] 12/08/2024 9:40 AM EDT Office Visit [facility] [address] [phone] Sylvester Farr MD [address] [place] [address] documented as of this encounter Visit Diagnoses Not on filedocumented in this encounter Additional Health Concerns Assessment Noted Time A fall risk assessment has been complete d for the patient 01/07/2024 11:10 AM EDT A Body Mass Index follow-up plan has been documented for the patient 01/07/2024 11:52 AM EDT documented as of this encounter Care Teams Carbon Lamp Cleaner Relationship Specialty Start Date End Date Charles Barrett MD [address] [place] [address] PCP - General 09/11/21 documented as of this encounter
--- OUTSIDE RECORDS SUMMARY | 2024-08-25 12:26 | XMS_ITS | Referral Summary ---
Author Organization [employer] Address [address] [place] [address] Care Team Providers Care Rubber Tire Curer Name Role Phone Charles Barrett MD Primary Care Provider +1- [phone] Allergies Active Allergy Reactions Criticality Noted Date [...] Date Jarrett rded Speak language other than Portuguese at home Not on file 03/27/2023 Want [...] Info) Description 11/03/2024 3:45 PM EDT Appointment [address] [address] Procedures Procedure Name Priority Date/Time Associated Diagnosis [...] the next mammogram. At our facility, a [place]uy[place] marker is positioned over a visible skin [...] cancer. COMPARISON STUDY: 2022 through 2014 from [facility] FINDINGS: Craniocaudal and mediolateral oblique images [...] A B BLUE CROSS/BLUE SHIELD Care Teams Rubber Tire Curer Relationship Specialty Start Date End Date Charles Barrett MD [address] [facility] [address] [place] [address] PCP - General Family Medicine 11/19/22
--- OUTSIDE RECORDS SUMMARY | 2024-08-25 12:26 | XMS_ITS | Clinical Summary ---
Author Organization [facility] Address [address] [place] [address] Care Team Providers Care Sand Operator Name Role Phone Charles Barrett MD Primary Care Provider [phone]- [phone] Allergies Active Allergy Reactions Criticality Noted Date Comments Codeine Other - please docum ent in the comment field,Hives,Itching,Rash High 11/11/2012 1Patient states she tolerates morphine Hydromorphone Hives,Itching,Other - please document in the comment field High 11/11/2012 Medications atorvastatin (Lipitor) 40 MG tablet 1 tablet (40 mg) 1 (one) time each day. 2 Active levETIRAcetam (Keppra) 500 MG tablet Take by mouth 2 (two) times a day. Active cyanocobalamin (Vitamin B-12) 1000 MCG tablet Take 1 tablet (1,000 mcg) by mouth 1 (one) time each day. Active midodrine (Proamatine) 5 MG tablet Take 1 tablet (5 mg) by mouth 1 (one) time each day. Active montelukast (Singulair) 10 MG tablet Take 1 tablet (10 mg) by mouth every night. Active omeprazole (PriLOSEC) [address] capsule Take 1 capsule (40 mg) by mouth 1 (one) time each day. Do not crush or chew. Active raloxifene (Evista) 60 MG tablet Take 1 tablet (60 mg) by mouth every night. Active venlafaxine (Effexor) 37.5 MG tablet Take 1 tablet (37.5 mg) by mouth 1 (one) time each day. Active gabapentin (Neurontin) 300 MG capsule Take 3 capsules (900 mg) by mouth every night. 2 Active ipratropium-alb uterol (Duo-Neb) 0.5-2.5 mg/3 mL nebulizer solution Take 3 mL by nebulization if needed for shortness of breath. 2 Active nitroglycerin (Nitrostat) 0.4 MG SL tablet DISSOLVE ONE TABLET UNDER THE TONGUE EVERY 5 MINUTES NEEDED FOR CHEST PAIN. DO NOT EXCEED A TOTAL OF 3 DOSES IN 15 MINUTES 1 Active zolpidem (Ambien) 10 MG tablet Take 0.5 tablets (5 mg) by mouth at night if needed for sleep. Active Eliquis 5 MG tablet Take 1 tablet (5 mg) by mouth 2 (two) times a day. You may resume this med in 48 hrs, or 11/15/2022 in the pm 3 Active Trelegy Ellipta 200-62.5-25 MCG/ACT aerosol powder Inhale 1 puff 1 (one) time each day. Rinse mouth after each use for 90 days 4 Active thiamine (vitamin B-1) 250 MG tablet Take 1 tablet (250 mg) by mouth 1 (one) time each day. Active acetaminophen (Tylenol) 500 MG tablet Take 2 tablets (1,000 mg) by mouth every 6 (six) hours if needed for pain (arthritis). Active albuterol 108 (90 Base) MCG/ACT inhaler Inhale 2 puffs 4 (four) times a day if needed for wheezing. Active Melatonin 10 MG tablet Take 10 mg by mouth 1 (one) time each day. Active ranolazine (Ranexa) 500 MG 12 hr tablet Take 1 tablet (500 mg) by mouth 2 (two) times a day. Do not crush, chew, or split. 180 tablet 3 4 Active metoprolol succinate XL (Toprol-XL) 25 MG 24 hr tablet TAKE 1 TABLET BY MOUTH DAILY. -- DO NOT CHEW, CRUSH, OR SPLIT 90 tablet 3 4 Active Albuterol-Budes onide 90-80 MCG/ACT aerosol Inhale 90 mcg as needed. Active celecoxib (CeleBREX) 100 MG capsule Take 1 capsule by mouth 2 times a day. Active dronedarone (Multaq) 400 MG tablet Take 1 tablet by mouth 2 times a day with meals. Active DULoxetine (Cymbalta) [address] capsule Take 1 capsule by mouth daily. Active eszopiclone (Lunesta) 1 MG tablet Take 1 tablet by mouth nightly. Active lidocaine (Lidoderm) 5 % patch Apply 1 patch topically daily. Active metoprolol tartrate (Lopressor) 25 MG tablet Take 1 tablet by mouth 2 times a day. Active ondansetron (Zofran) 4 MG tablet Take 1 tablet by mouth every 6 hours. Active sucralfate (Carafate) 1 g tablet Take 1 tablet by mouth 4 times a day. Active Active Problems Problem Noted Date Diagnosed Date Atherosclerosis of artery of both lower extremit ies 07/14/2024 Chronic pain syndrome 07/14/2024 Closed fracture distal radius and ulna Drug-induced polyneuropathy 07/14/2024 Dyslipidemia 07/14/2024 Fall 07/14/2024 Insomnia 07/14/2024 Mixed anxiety and depressive disorder 07/14/2024 Primary osteoarthritis involving multiple joints 07/14/2024 Seizure disorder 07/14/2024 Status post right knee replacement 07/14/2024 Chronic atrial fibrillation 07/14/2024 Heart disease 07/14/2024 Coronary arteriosclerosis 07/14/2024 Non-rheumatic aortic sclerosis 07/14/2024 Cardiac pacemaker in situ 07/14/2024 Dysphagia 05/31/2024 Gastro-esophageal reflux disease without esophag itis 05/31/2024 Gastroduodenitis 05/31/2024 Primary osteoarthritis of left hip 05/24/2024 Primary osteoarthritis of left knee 02/23/2024 Arthritis of left knee 02/11/2024 Left wrist pain 01/20/2024 Altered mental status 12/10/2023 Exposure to COVID-19 virus 12/10/2023 Facet arthropathy 12/10/2023 History of UT (myocardial infarction) 12/10/2023 Lumbar spondylosis 12/10/2023 Status cardiac pacemaker 12/10/2023 TIA (transient ischemic attack) 12/10/2023 Hypoglycemia 12/10/2023 Type 2 diabetes mellitus 12/10/2023 Syncope and collapse 12/10/2023 Left ventricular diastolic dysfunction Nonrheumatic aortic valve insufficiency 12/03/19 24 Nonrheumatic mitral valve regurgitation 12/03/19 Tricuspid valve regurgitation, nonrheumatic 11/08 Diastolic heart failure 12/03/2023 Cardiomegaly 12/03/2023 Acute chest pain 11/22/2023 Arthralgia of right knee 04/06/2023 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 04/02/2023 Current use of shelter anticoagulation 023 Pacemaker generator end of life 11/12/2022 Osteoarthritis of right knee 05/27/2022 Arthritis of right knee 05/22/2022 Overview (12/03/2023): Added automatically from request for surgery [id number] 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 Overview (07/14/2024): Unilateral primary osteoarthritis, right knee; W/U Status: confirmed Closed Colles' fracture 03/11/2022 Overview (07/14/2024): Colles' fracture of right radius, initial encounter for closed fracture; W/U Status: confirmed Right wrist pain 03/11/2022 Overview (07/14/2024): Pain in right wrist; W/U Status: confirmed Pain of right hip joint 02/17/2022 Overview (07/14/2024): Pain in right hip; W/U Status: confirmed Trochanteric bursitis of right hip 02/17/2022 Overview (07/14/2024): Trochanteric bursitis, right hip; W/U Status: confirmed Degeneration of lumbar intervertebral disc 02/17 Overview (07/14/2024): Other intervertebral disc degeneration, lumbar region; W/U Status: confirmed Presence of retained hardware 11/06/2021 Overview (11/06/2021): Added automatically from request for surgery [id number] SSS (sick sinus syndrome) 09/30/2021 Hypotension, unspecified 09/30/2021 COPD (chronic obstructive pulmonary disease) Retained plastic fragment 09/11/2021 Arrhythmia 08/28/2021 Pacemaker 08/28/2021 Asthma 08/28/2021 A-fib 08/28/2021 Diabetes mellitus type II, non insulin dependent 08/28/2021 Hyperlipidemia 08/28/2021 Kidney stones 08/28/2021 Anemia 08/28/2021 Arthritis 08/28/2021 Cataract 08/28/2021 Near syncope 11/08/2019 Syncope 11/08/2019 Memory impairment 10/22/2017 Diabetes mellitus 10/22/2016 Resolved Problems Problem Noted Date Diagnosed Date Resolved Date CAD (coronary artery disease) 08/28/2021 08/07/2022 Acute diastolic heart failure 08/28/2021 08/28/2021 Old UT (myocardial infarction) 08/28/2021 08/07/2022 Encounters Date Type Department Care Team Description 08/05/2024 Telephone Cardiac Imaging [address] [place] [address] Tata Johnson 08/02/2024 Telephone [facility] [place] [facility] [address] [place] [address] Indu Grimes MD 07/26/2024 Telephone Cardiac Imaging [address] [place] [address] Tata Johnson 07/11/2024 3:35 PM EDT - 07/11/2024 11:59 PM EDT Hospital Encounter Cardiac Imaging [address] [place] [address] Pacemaker Discharge Disposition: Home or Self Care 07/11/2024 Travel from Last 3 Months Immunizations Immunization Administration Dates Next Due Influenza Vaccine, Quadrivalent, Adjuvanted 11/07 Influenza, High-dose, Split Virus, Trivalent, Injectable, preservative free 11/11/2023 Influenza, high-dose, quadrivalent 11/22/2019 Influenza, injectable, quadrivalent 12/16/2018 Influenza, injectable, quadrivalent, preservativ e free 12/02/2021 Pneumococcal 20-jaky Conj Vaccine 09/16/2022 Pneumococcal Conjugate PCV 13 10/13/2017 Pneumococcal Polysaccharide PPV23 10/06/2006 Tdap 10/13/2017,09/09/2004 Zoster, live 10/11/2008 Family History Medical History Relation Name Comments Diabetes Brother CVA Father Coronary artery disease Father Diabetes Father Atrial fibrillation Mother Ida Gordon CVA Mother Ida Evan Diabetes Mother Ida Evan Heart failure Mother Ida Evan Pancreatic cancer Other Stacy Heart attack Sister 1 Farida Cancer Sister 2 Stacy Heart attack Sister 3 Farida Murphy Relation Name Status Comments Brother Alive Father Mother Ida Gordon Other Stacy Alive Sister 1 Farida Sister 2 Stacy Sister 3 Farida Murphy Social History Tobacco Use Types Packs/Day Years Used Date Smoking Tobacco: Never Passive Smoke Exposure: Never Smokeless Tobacco: Never Tobacco Cessation:Counseling Given: Not Answered Alcohol Use Standard Drinks/Week Comments Yes 2 [...] week 11/25/2023 How often do you attend [facility] or yazdanism services? More than 4 times per year 11/25/2023 Do you belong to any clubs o r organizations such as nondenominational groups, unions, fraternal or athletic groups, or [...] place to sleep or slept in a longterm (including now)? No 11/23/2023 Utilities Answer Date Recorded In the past 12 months has th e [employer], gas, oil, or water company threatened to shut off services in your home? No 11/23/2023 Comments Unknown Sex and Gender Information Value Date Recorded Sex Assigned at Not on file Legal Sex Female 7:48 PM EDT Gender Identity Not on file Sexual Orientation Not on file Last Filed Vital Signs Vital Sign Reading Time Taken Comments Blood Pressure 107/70 01/07/2024 11:06 AM EDT Pulse 71 01/07/2024 11:06 AM EDT Temperature 36.9 C (98.4 F) 11/23/2023 12:12 PM EDT Respiratory Rate 20 12/30/2023 9:15 AM EDT Oxygen Saturation 97% 01/07/2024 11:06 AM EDT Inhaled Oxygen Concentration - - Weight 67.5 kg (148 lb 13 oz) 01/07/2024 11:06 A M EDT Height 154.9 cm (5' 1 ) 01/07/2024 11:06 AM EDT Body Mass Index 28.12 01/07/2024 11:06 AM EDT Plan of Treatment Upcoming Encounters Date Type Department Care Team (Late st Contact Info) Description 11/23/2024 11:40 AM EDT Office Visit [facility] [address] [id number] Indu Grimes MD [address] [place] [address] 12/08/2024 9:40 AM EDT Office Visit [facility] [address] [place] [address] Sylvester Farr MD [address] [place] [address] Health Maintenance Due Date Last Done Comments [facility]-Bone Density Scan 1950 [facility]-Medicare Annual Wellness (AWV) 1950 [facility]-/Child/Adol SDOH Screenings 1950 Diabetes: Dental Exam 1958 [facility]-Zoster Vaccines (2 of 3) 12/06/2008 10/11/2008 [facility]-RSV Vaccine: 60+ Years or (1 - 1-dose 75+ series) 06/22/2023 [id number] Vaccine ( season) 2024 11/11/2023, 11/24/2022, 02/05/2022, Additional history exists [facility]- SDOH Screenings 05/22/2024 [facility]-Adult SDOH Screenings 05/22/2024 11/23/2023 [facility]-Diabetes: Hemoglobin A1C 05/22/2024 11/23/2023 [facility]-Depression Screening 01/06/2025 01/07/2024 [facility]-DTaP,Tdap,and Td Vaccines (3 - Td or Tdap) 10/14/2027 10/13/2017, 09/09/2004 [facility]-Pneumococcal Vaccine: 50+ Years Completed 09/16/2022, 10/13/2017, 10/06/2006 [facility]-Breast Cancer Screening Discontinued 11/02/2023, 11/02/2023, 10/30/2022, Additional history exists [facility]-Influenza Vaccine Completed 11/11/2023 , 11/24/2022, 12/02/2021, Additional history exists [facility]-Hepatitis C Screening Completed 11/22/2023 [facility]-Obesity Intervention Completed 024, 12/10/2023, 12/04/2023, Additional history exists HPV Vaccines Aged Out No longer eligi ble based on patient's age to complete this topic [facility]-HIB Vaccines Aged Out No longer e ligible based on patient's age to complete this topic [facility]-Hepatitis A Vaccines Aged Out No longer eligible based on patient's age to complete this topic [facility]-IPV Vaccines Aged Out No longer e ligible based on patient's age to complete this topic [facility]-Rotavirus Vaccines Aged Out No lo nger eligible based on patient's age to complete this topic Medical Devices Implanted Type Area Real Estate Site Analyst Device Identifier Shelf Expiration Date Model / Serial / Lot Pacemaker Assurity Mri Dr - [id number] Implanted:Qty: 1 on 11/13/2022 by Indu Grimes MD at [facility] [id number] 03/08/2024 [id number] / [id number] Envelope Tyrx Pm Medium - [id number] Implanted:Qty: 1 on 11/13/2022 by Indu Grimes MD at [facility] [id number] 08/02/2023 [id number] / / [id number] Procedures Procedure Name Priority Date/Time Associated Diagnosis Comments CARDIAC DEVICE CHECK - REMOTE - PACEMAKER Routine 07/11/2024 3:46 PM EDT Pacemaker HEMOGLOBIN A1C Routine 11/23/2023 5:15 AM EDT HEPATITIS C ANTIBODY - ED W/REFLEX TO HCV QUANT PCR STAT 11/22/2023 11:36 AM EDT from Last 3 Months or Most Recently Relevant to Health Maintenance Results * CARDIAC DEVICE CHECK - REMOTE - PACEMAKER (07/11/2024 3:46 PM EDT) Anatomical Region Laterality Modality Other Narrative 07/11/2024 3:51 PM EDT [facility] Remote CIED Report Name: Ida Flores Date: 07/11/2024 : 1950 Age: 74 [...] report in Media us Elyssa Chavez Pb ROLLS BAKER CV IMPLANTABLE CARDIAC DEV ICE PROCEDURES Final Result * (ABNORMAL) Hemoglobin A1c (11/23/2023 5:15 AM EDT) Hemoglobin A1c 6.4(H) <5.7 % 11/23/2023 6:44 AM EDT [facility] Blood Venous blood specimen / Unknown Venipuncture / Unknown 11/23/2023 5:15 AM EDT 11/23/2023 5:47 AM EDT Narrative [facility] - 11/23/2023 6:44 AM EDT HA1C Interpretive Data: Diagnosis of Diabetes: Diabetic > or = 6.5% Pre-diabetic 5.7 to 6.4% Non-diabetic < or = 5.6% Glycemic Targets for Type I and Type II Diabetics: Non- Adults <7.0% Adults <6.0% Children and Adolescents <7.5% Source: [place] [employer]. Standards of medical care in diabetes,2017. Diabetes Care.2017:40 (suppl 1):S1-S135. HbA1c assay performed by an ion-exchange chromatography method that is certified traceable to the DCCT. us Zackary Gao MD LAB BLOOD ORDERABLES Final Result [facility] [address] [place] [address] * Hepatitis C Antibody - ED (11/22/2023 11:36 AM EDT) Hepatitis C Antibody Negative Negative 11/22/2023 12:54 PM EDT [facility] Blood Venous blood specimen / Unknown Venipuncture / Unknown 11/22/2023 11:36 AM EDT 11/22/2023 12:13 PM EDT us Mono Ray MD LAB BLOOD ORDERABLES Final Result [facility] [address] [place] [address] from Last 3 Months or Most Recently Relevant to Health Maintenance Insurance MEDICARE [facility] Advance Directives * Full Code (Latest Code Status on File) Date Activated Date Inactivated Comments 11/22/2023 4:59 PM 11/23/2023 7:24 PM Question Answer Comments Patient has decision-making capacity? Yes * Full Code Date Activated Date Inactivated Comments 11/13/2022 1:33 PM 11/13/2022 6:08 PM Question Answer Comments Patient has decision-making capacity? Yes Care Teams Sand Operator Relationship Specialty Start Date End Date Charles Barrett MD [address] [facility] [place] [address] PCP - General 09/11/21
--- OUTSIDE RECORDS SUMMARY | 2024-08-25 12:26 | XMS_ITS | Encounter Summary ---
Author Organization Healthcare Address [address] [place] [address] Care Team Providers Care Button Tufter Name Role Phone Charles Barrett MD Primary Care Provider +1- [phone] Encounter Details Date Type Department Care Team (Latest Contact Info) Description 07/11/2024 Travel Social History Tobacco Use Types Packs/Day Years [...] week 11/25/2023 How often do you attend [facility] or pentecostalism services? More than 4 times per year 11/25/2023 Do you belong to any clubs o r organizations such as yazdanism groups, unions, fraternal or athletic groups, or [...] place to sleep or slept in a mcc (including now)? No 11/23/2023 Utilities Answer Date [...] Description 11/23/2024 11:40 AM EDT Office Visit [facility] [address] [place] [address] Indu Grimes MD [address] [place] [address] 12/08/2024 9:40 AM EDT Office Visit [facility] Greg [address] [facility] [place] [address] Sylvester Farr MD [address] [place] [address] documented as of this encounter Visit Diagnoses Not on filedocumented in this encounter Additional Health Concerns Assessment Noted Time A fall risk assessment has been complete d for the patient 01/07/2024 11:10 AM EDT A Body Mass Index follow-up plan has been documented for the patient 01/07/2024 11:52 AM EDT documented as of this encounter Care Teams Button Tufter Relationship Specialty Start Date End Date Charles Barrett MD [address] [place] [address] PCP - General 09/11/21 documented as of this encounter
--- OUTSIDE RECORDS SUMMARY | 2024-08-25 12:26 | XMS_ITS | Encounter Summary ---
Author Organization Healthcare Address [address] [place] [address] Care Team Providers Care Facing Baster Jumpbasting Name Role Phone Charles Barrett MD Primary Care Provider +1- [phone] Encounter Details Date Type Department Care Team (Late st Contact Info) Description 08/02/2024 Telephone [facility] [address] [facility] [place] [address] Indu Grimes MD [address] [place] [address] Social History Tobacco Use Types Packs/Day Years [...] often do you attend chur ch or yazidi services? More than 4 times per year 11/25/2023 Do you belong to any clubs o r organizations such as congregation groups, unions, fraternal or athletic groups, or [...] place to sleep or slept in a prison (including now)? No 11/23/2023 Utilities Answer Date [...] encounter Miscellaneous Notes * Telephone Encounter - Flavia Lucas - 08/02/2024 2:33 PM EDT Clinical Concern/Question Reason for Call: Patient needs to RS the 07/27 appointment. Best contact number: Other: [phone] Optimal time of day to reach caller: ANYTIME Additional comments/information from caller: Asking to be seen around mid August if possible Note: Please do not reply to this message. Follow-up communication and further actions as a result of this message need to be communicated with the patient directly, if the patient is not active onMyChart. If the patient is active on MyChart, they will receive notification of the communication/outcome via [employer]. documented in this encounter Plan of Treatment Upcoming Encounters Date Type Department Care Team (Late st Contact Info) Description 11/23/2024 11:40 AM EDT Office Visit [facility] [place] [address] [facility] [address] Indu Grimes MD [address] [place] [address] 12/08/2024 9:40 AM EDT Office Visit [facility] [place] [address] [address] Sylvester Farr MD [address] [place] [address] documented as of this encounter Visit Diagnoses Not on filedocumented in this encounter Additional Health Concerns Assessment Noted Time A fall risk assessment has been complete d for the patient 01/07/2024 11:10 AM EDT A Body Mass Index follow-up plan has been documented for the patient 01/07/2024 11:52 AM EDT documented as of this encounter Care Teams Facing Baster Jumpbasting Relationship Specialty Start Date End Date Charles Barrett MD [address] [place], [place] [address] PCP - General 09/11/21 documented as of this encounter
--- OUTSIDE RECORDS SUMMARY | 2024-08-25 12:26 | XMS_ITS | Patient Health Record ---
[facility] [address] [facility] [address] [place] [phone] Care Team Providers Care Brick Washer Name Role Phone Arjun Barrett Primary Care Provider [phone] Dai Avalos Unavailable [phone] Angelica Cabrera Unavailable [phone] Allergies Allergen (clinical drug ingredient) Drug/Non Drug [...] x-ray Performing Lab: Notes/Report: see hip x-ray Reason For Referral No Information Medications Medication SIG (Take, Route, Frequency, Duration) Notes Start Date End Date Status Ranolazine ER 500 MG 1 tablet Orally Twice a day Active Midodrine HCl 5 MG 1 tablet Orally Twice a day Active levETIRAcetam 500 MG 1 tab(s) orally 2 times a day for 90 days Active Albuterol Sulfate (2.5 MG/3ML) 0.083% 3 ml Inhalation every 6 hrs, prn Active Atorvastatin Calcium 40 MG 1 tablet Orally Once a day for 30 days Active Carafate 1 GM 1 tab(s) orally 4 times a day (before meals and at bedtime) 07/20/2020 Active Venlafaxine HCl 37.5 MG TAKE 1 TABLET ONCE DAILY WITH FOOD for 30 Active traMADol HCl 50 MG 1 tab(s) orally four times a day as needed 07/23/2022 Active Zolpidem Tartrate 10 MG 1 tab(s) orally once a day (at bedtime) for 30 day(s) 08/04/2023 Active Nebulizer/Tubing/Mout hpiece - as directed 07/30/2023 Active Omeprazole 40 MG take 1 capsule Orally Once a day for 30 days Active NEBULIZER SET UP FOR ADULT DIRECTED *Please review for potential replacement for e-prescription and drug interaction check* 07/31/2021 Active Raloxifene HCl 60 MG TAKE 1 TABLET ONCE DAILY for 90 days Active Vitamin D3 50 MCG (2000 UT) 1 tab(s) orally once a day for 90 days Active Eliquis 5 MG 1 tablet Orally twice daily for 90 days Active Gabapentin 300 MG 1 cap(s) orally twice a day 02/12/2022 Active Montelukast Sodium 10 MG TAKE 1 TABLET ONCE DAILY for 90 Active Ipratropium-Albuterol 3/ 0.5/ 3 ML 3 ML TID *Please review and pick correct strength-formulati on from [employer] options. If intended option is not shown, discontinue and re-order from Quick Search* 07/31/2021 Active Lidoderm 5 % 1 patch remove after 12 hours Externally Once a day for 30 days 12/14/2023 Active ALBUTEROL HFA INHALER 200 METERED DOSES/ 8.5GM 2 INHALATIONS QID PRN *Please review for potential replacement for e-prescription and drug interaction check* Active Metoprolol Tartrate 25 MG 1 tablet with food Orally Twice a day Active Latisse 0.03 % 1 diana applied topically once a day (at bedtime) 07/19/2020 Active Albuterol Sulfate 0.83MG/ML (2.5MG/3ML) 1 VIAL DIRECTED Q 4-6 HRS PRN PER NEBULIZER for 90 DAYS *Please review and pick correct strength-formulati on from [employer] options. If intended option is not shown, discontinue and re-order from Quick Search* Active Vitamin B-1 250 MG 2 tablet Orally twice a day Active Trelegy Ellipta 200-62.5-25 MCG/ACT 1 puff Inhalation Once a day Active Vitamin B-12 1000 MCG 1 tablet Orally Once a day for 30 day(s) Active Immunizations Vaccine Route Administration Date Status Comme nts COVID 19 Pfizer Unknown 03/17/2020 Administered COVID 19 Pfizer Unknown 04/09/2020 Administered COVID 19 Pfizer Unknown 10/31/2020 Administered Fluzone High Dose (65yr and older) Unknown 11/22/2019 Administered Fluzone PF Quad (6-35 months) Unknown 12/02/2021 Administered PNEUMOVAX 23 VACCINE Unknown 10/06/2006 Administered Prevnar (PCV13) Unknown 10/13/2017 Administered Prevnar (PCV20) IM Intramuscular 09/16/2022 Administered Tetanus Tdap-Adacel (over 7yrs) Unknown 09/09/2004 Administered Tetanus Tdap-Adacel (over 7yrs) Unknown 09/09/2004 Administered Tetanus Tdap-Adacel (over 7yrs) Unknown 10/13/2017 Administered xFluzone High Dose-private (65yr&older) Unknown 11/11/2023 Administered Zostavax Unknown 10/11/2008 Administered Problems Problem Type SNOMED Code ICD Code Onset Dates Problem Status W/U Status Risk Notes Problem Coronary arteriosclerosis (27204571) ASCVD (arteriosclerotic cardiovascular disease) (I25.10) Active confirmed Problem Insomnia (023556317) Insomnia (G47.00) Active confirmed Problem Anemia (986905986) Anemia (D64.9) Active confir med Problem Asthma (473089495) Asthma (J45.909) Active conf irmed Problem Mixed anxiety and depressive disorder (311485099) Depression with anxiety (F41.8) Active confirmed Problem 350485232 Seizure disorder (G40.909) Active confirmed Problem 6839333 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) Active confirmed Problem 288682978 Chronic pain syndrome (G89.4) Active confirmed Problem Chronic atrial fibrillation (552081859) Chronic atrial fibrillation (I48.2) Active confirmed Problem Heart disease (11284647) Heart disease, unspecified (I51.9) Active confirmed Problem 063695430 History of MT (myocardial infarction) (I25.2) Active confirmed Problem Cardiac pacemaker in situ (768107410) Pacemaker (Z95.0) Active confirmed Problem 937820099 Primary osteoarthritis involving multiple joints (M15.0) Active confirmed Problem Gastroesophageal reflux disease (934850290) Gastroesophageal reflux disease, esophagitis presence not specified (K21.9) Active confirmed Problem 46345493 Hyperlipidemia, unspecified hyperlipidemia type (E78.5) Active confirmed Problem Dyslipidemia (234438961) Dyslipidemia (E78.5) Active confirmed Problem 647601558 TIA (transient ischemic attack) (G45.9) Active confirmed Problem 2176496516251 Status post righ t knee replacement (Z96.651) Active confirmed Problem 514601213 Asthma, unspecified asthma severity, unspecified whether complicated, unspecified whether persistent (J45.909) Active confirmed Problem Chronic atrial fibrillation (558221878) Chronic atrial fibrillation (I48.20) Active confirmed Vital Signs Heart Rate 68 /min 08/25/2024 Blood pressure diastolic 70 mm Hg 08/25/2024 Height 60 in 08/25/2024 Blood pressure systolic 110 mm Hg 08/25/2024 Weight 140.6 lbs 08/25/2024 BMI 27.46 kg/m2 08/25/2024 Encounters Encounter Location Date Provider Diagnosis [facility] [address] [place] [id number] 08/26/2023 Angelica Crowdy Dyslipidemia E78.5 ; Chronic atrial fibrillation I48.2 ; Asthma J45.909 and Lower extremity edema R60.0 [facility] [facility] [address] [place] [id number] 11/13/2023 Angelica Jordidy Hives L50.9 [facility] [address] [place] [id number] 12/14/2023 Dai Avalos Hip pain M25.559 [facility] [facility] [address] [place] [id number] 01/05/2024 R Samy Barrett Fall W19.XXXA and Radial fracture S52.90XA [facility] [address] [place] [id number] 08/25/2024 R Samy Barrett Adult general medica l examination Z00.00 ; Dyslipidemia E78.5 and Anemia D64.9 [facility] [address] [place] [id number] 12/14/2023 Arjun Barrett [facility] [address] [place] [id number] 08/11/2024 Arjun Barrett Assessments Encounter Date Diagnosis (ICD Code) Assessment Notes Treatment Notes Treatment Clinical Notes Section Notes 08/26/2023 Chronic atrial fibrillation (ICD-10 - I48.2) 08/26/2023 Dyslipidemia (ICD-10 - E78.5) Pt needs refills, will get labs at checkup in October. 11/13/2023 Hives (ICD-10 - L50.9) Can continue benadryl and will start on steroids. 12/14/2023 Hip pain (ICD-10 - M25.559) continue use of cane/walker as needed; heat/ice application prn; meds with food 01/05/2024 Fall (ICD-10 - W19.XXXA) 01/05/2024 Radial fracture (ICD-10 - S52.90XA) Leave volar splint in place. Keep follow-up appointment with orthopedics tomorrow. 08/25/2024 Dyslipidemia (ICD-10 - E78.5) 08/25/2024 Adult general medical examination (ICD-10 - Z00.00) Patient instructed to return to office Annually for Annual Wellness Visits to include annual screenings of Pain assessment, Functional Ability assessment, Cognitive Ability assessment, Fall Risk assessment, Depression screening and Bladder control screening. 08/25/2024 Anemia (ICD-10 - D64.9) 08/26/2023 Asthma (ICD-10 - J45.909) 08/26/2023 Lower extremity edema (ICD-10 - R60.0) Resolved, will continue to monitor. Plan Of Treatment Pending Test Test Name Order Date Bone density 08/25/2024 colonoscopy 08/25/2024 H-CBC 08/25/2024 H-Lipid Panel 08/25/2024 H-CMP 08/25/2024 H-Iron 08/25/2024 Insurance Providers Payer Name Payer Address Payer Phone Subscriber Number Group Number Insured Name Patient Relationship to Insured Coverage Start Date Coverage End Date MEDICARE PART B [address] [address] [place] [id number] [phone] [id number] Dagmar Flores Self - patient is the insured [facility] [id number] [place] [id number] Dagmar Flores Self - patient is the insured Medications Administered Medication Instructions Date of Administration Dosage Notes Dexamethasone 12/13/2018 1 mL Dexamethasone 07/31/2021 1 mL Dexamethasone 07/30/2023 1 mL Medical (General) History Medical History History ICD Code Asthma Pneumonia ASCVD HLP CHF pacemaker Afib Insomnia sleep apnea acid reflux kidney stones bleeding ulcer varicose veins seizures peripheral neuropathy Osteopenia Dysplasia on breast biopsy Surgical History Surgery Date(Month/Year) pacemaker X 3 right knee arthroscopy 2017 right rotator cuff repair 10/2016 gastric bypass 2011 total hysterectomy at the age of 36 tonsilectomy kidney stone removal bilateral breast biopsies Colonoscopy - Dr. Arce Rich-Cath colonoscopy/ normal/ Dr. Arce 09/06/18 breast reduction Tummy tuck bilateral blepharoplasty 2021 Port Catheter Removal 11/2021 Total Knee Replacement 05/2022 Hospitalization History Reason Date(Month/Year) [facility] ER - Fall- Broken Arm 12/30/2023 [facility] ER - syncope 10/28/2019 [facility] ER-syncope 10/24/2019 [facility] ER-seizure, passed out 03/2019
--- OUTSIDE RECORDS SUMMARY | 2024-08-25 12:27 | XMS_ITS | Patient Health Record ---
Author Organization [facility] Address [address] [place] [address] Care Team Providers Care Change Attendant Name Role Phone MAX LOPEZ Primary Care Provider HENRRY CONNORS Unavailable [phone] Kolton Vazquez Unavailable [phone] Ashlee Argueta Unavailable [phone] Paulina Roque Unavailable [phone] Allergies Allergen (clinical drug ingredient) Drug/Non Drug Allergy documented on EMR Reaction Allergy Type Onset Date Status Aspirin (ASA) Gastric ulcer Drug Allergy Active Codeine Unknown Drug Allergy 04/25/2005 Active hydromorphone Dilaudid Unknown Drug Allergy 04/25/2005 Ac tive trazodone traZODone HCl headache Drug Allergy 01/23/2021 Ac tive Results Component Value Reference Range Notes Lipid Panel Reviewed date:01/19/2024 09:21:45 AM Interpretation: Performing Lab:TP, [facility]-[id number] [id number] Matthew Jameson MD Notes/Report: FASTING CHOLESTEROL, TOTAL 174 <200 mg/dL HDL CHOLESTEROL 74 > OR = 50 mg/dL TRIGLYCERIDES 110 <150 mg/dL LDL-CHOLESTEROL 79 Reference range: <100 Desirable range <100 mg/dL for primary prevention; <70 mg/dL for patients with CHD or diabetic patients with > or = 2 CHD risk factors. LDL-C is now calculated using the Jack-Ibanez calculation, which is a validated novel method providing better accuracy than the Friedewald equation in the estimation of LDL-C. Jack SS et al. TRISH. 2013;310(19): 5507-6447 (http://education.RotaPost.RocketOn/faq/F AQ164) CHOL/HDLC RATIO 2.4 <5.0 (calc) NON HDL CHOLESTEROL 100 <130 mg/dL (calc) For patients with diabetes plus 1 major ASCVD risk factor, treating to a non-HDL-C goal of <100 mg/dL (LDL-C of <70 mg/dL) is considered a therapeutic option. Ferritin, Serum Reviewed date:07/01/2024 10:47:40 AM Interpretation: Performing Lab:[facility] [address]ie CamejoL[address] Matthew Jameson MD Notes/Report: FASTING: UNKNOWN FERRITIN 68 16-288 ng/mL IRON, TOTAL Reviewed date:07/01/2024 10:46:27 AM Interpretation: Performing Lab:TP [facility]ykta4858[address] [id number] Matthew Jameson MD Notes/Report: FASTING: UNKNOWN IRON, TOTAL 30 45-160 mcg/dL VITAMIN B12/FOLATE, SERUM PA LINDA Reviewed date:07/01/2024 10:47:53 AM Interpretation: Performing Lab:[facility]8641 Jessie CamejoL[address] Matthew Jameson MD Notes/Report: FASTING: UNKNOWN VITAMIN B12 139 685-8736 pg/mL FOLATE, SERUM 6.3 Reference Range Low: <3.4 Borderline: 3.4-5.4 Normal: >5.4 CBC/Diff Ambiguous Default Reviewed date:07/01/2024 10:46:42 AM Interpretation: Performing Lab:TP [facility]Lzokh1553 [address] [place]joaFL[address] Matthew Jameson MD Notes/Report: FASTING: UNKNOWN WHITE BLOOD CELL COUNT 6.5 3.8-10.8 Thousand/uL RED BLOOD CELL COUNT 3.72 3.80-5.10 Million/uL [...] MPV 10.2 7.5-12.5 fL ABSOLUTE NEUTROPHILS 3582 3747-8582 cells/uL ABSOLUTE LYMPHOCYTES 2035 850-3900 cells/uL ABSOLUTE MONOCYTES 566 200-950 cells/uL ABSOLUTE EOSINOPHILS 267 15-500 cells/uL ABSOLUTE BASOPHILS 52 0-200 cells/uL NEUTROPHILS 55.1 LYMPHOCYTES 31.3 MONOCYTES 8.7 EOSINOPHILS 4.1 BASOPHILS 0.8 COMPREHENSIVE METABOLIC PANE L Reviewed date:07/01/2024 10:47:02 AM Interpretation: Performing Lab:[facility], DpepsOY[address] Matthew Jameson MD Notes/Report: FASTING: UNKNOWN GLUCOSE [...] 15 10-35 U/L ALT 5 6-29 U/L Pathology Report Reviewed date:05/19/2024 08:18:15 AM Interpretation: Performing Lab: Notes/Report: CT Scan : Chest Reviewed date:01/26/2024 01:56:14 PM Interpretation: Performing Lab: Notes/Report: Echocardiogram, transthoraci c Reviewed date:06/30/2024 08:28:19 AM Interpretation: Performing Lab: Notes/Report: CT Scan : Brain Reviewed date:06/30/2024 08:28:25 AM Interpretation: Performing Lab: Notes/Report: X ray : CHEST PA LATERAL Reviewed date:06/30/2024 08:28:30 AM Interpretation: Performing Lab: Notes/Report: Carotid Ultrasound Reviewed date:06/30/2024 08:28:35 AM Interpretation: Performing Lab: Notes/Report: X ray : Pelvis Reviewed date:06/30/2024 08:28:40 AM Interpretation: Performing Lab: Notes/Report: COMPREHENSIVE METABOLIC PANE L Reviewed date:02/09/2024 12:19:33 PM Interpretation: Performing Lab:TP, [facility]-[address], [id number] Matthew Jameson MD Notes/Report: 0; 0; 0 FASTING:NO FASTING: NO GLUCOSE 93 65-139 mg/dL Non-fasting reference interval UREA NITROGEN (BUN) 10 7-25 mg/dL CREATININE 0.67 0.60-1.00 mg/dL EGFR 91 > OR = 60 mL/min/1.73m2 BUN/CREATININE RATIO SEE NOTE: 6-22 (calc) Not Reported: BUN and Creatinine are within reference range. SODIUM 141 135-146 mmol/L POTASSIUM 4.4 3.5-5.3 mmol/L CHLORIDE 105 98-110 mmol/L CARBON DIOXIDE 28 20-32 mmol/L CALCIUM 9.0 8.6-10.4 mg/dL PROTEIN, TOTAL 6.0 6.1-8.1 g/dL ALBUMIN 3.7 3.6-5.1 g/dL GLOBULIN 2.3 1.9-3.7 g/dL (calc) ALBUMIN/GLOBULIN RATIO 1.6 1.0-2.5 (calc) BILIRUBIN, TOTAL 0.5 0.2-1.2 mg/dL ALKALINE PHOSPHATASE 92 37-153 U/L AST 16 10-35 U/L ALT 6 6-29 U/L CBC/Diff Ambiguous Default Reviewed date:02/09/2024 12:21:03 PM Interpretation: Performing Lab:Josi LARAa[address] BgzrkYS[address] Matthew Jameson MD Notes/Report: 0; 0; 0 FASTING:NO FASTING: NO WHITE BLOOD CELL COUNT 5.2 3.8-10.8 Thousand/uL RED BLOOD CELL COUNT 4.02 3.80-5.10 Million/uL HEMOGLOBIN 12.0 11.7-15.5 g/dL HEMATOCRIT 37.6 35.0-45.0 % MCV 93.5 80.0-100.0 fL MCH 29.9 27.0-33.0 pg MCHC 31.9 32.0-36.0 g/dL For adults, a slight decrease in the calculated MCHC value (in the range of 30 to 32 g/dL) is most likely not clinically significant; however, it should be interpreted with caution in correlation with other red cell parameters and the patient's clinical condition. RDW 14.3 11.0-15.0 % PLATELET COUNT 264 140-400 Thousand/uL MPV 10.0 7.5-12.5 fL ABSOLUTE NEUTROPHILS 3214 1694-0438 cells/uL ABSOLUTE LYMPHOCYTES 2237 867-2389 cells/uL ABSOLUTE MONOCYTES 390 200-950 cells/uL ABSOLUTE EOSINOPHILS 62 15-500 cells/uL ABSOLUTE BASOPHILS 31 0-200 cells/uL NEUTROPHILS 61.8 LYMPHOCYTES 28.9 MONOCYTES 7.5 EOSINOPHILS 1.2 BASOPHILS 0.6 REFLEXIVE URINE CULTURE Reviewed date:02/11/2024 03:55:32 PM Interpretation: Performing Lab:Josi LARAa[address] [id number] Matthew Jameson MD Notes/Report: 0 FASTING:NO FASTING: NO REFLEXIVE URINE CULTURE NO C ULTURE INDICATED PT and PTT Reviewed date:02/11/2024 03:52:15 PM Interpretation: Performing Lab:Josi LARAa[address] [id number] Matthew Jameson MD Notes/Report: 0; 0; 0 FASTING:NO FASTING: NO PARTIAL THROMBOPLASTIN TIME, ACTIVATED 28 23-32 sec This test has not been validated for monitoring unfractionated heparin therapy. For testing that is validated for this type of therapy, please refer to the Heparin Anti-Xa assay (test code 70424). For additional information, please refer to http://education.FieldAware.RocketOn/faq/FA Q159 (This link is being provided for informational/educatio nal purposes only.) INR 1.1 Reference Range 0.9-1.1 Moderate-intensity Warfarin Therapy 2.0-3.0 Higher-intensity Warfarin Therapy 3.0-4.0 PT 11.5 9.0-11.5 sec URINE CULTURE Reviewed date:02/11/2024 03:52:47 PM Interpretation: Performing Lab:[facility] Jessie SaezL[address] Matthew Jameson MD Notes/Report: 0 FASTING:NO FASTING: NO COLOR YELLOW YELLOW APPEARANCE CLEAR CLEAR SPECIFIC GRAVITY 1.013 1.001-1.035 PH 5.5 5.0-8.0 GLUCOSE NEGATIVE NEGATIVE BILIRUBIN NEGATIVE NEGATIVE KETONES NEGATIVE NEGATIVE OCCULT BLOOD NEGATIVE NEGATIVE PROTEIN NEGATIVE NEGATIVE NITRITE NEGATIVE NEGATIVE LEUKOCYTE ESTERASE NEGATIVE NEGATIVE WBC NONE SEEN < OR = 5 /HPF RBC NONE SEEN < OR = 2 /HPF SQUAMOUS EPITHELIAL CELLS NONE SEEN < OR = 5 /HPF BACTERIA NONE SEEN NONE SEEN /HPF HYALINE CAST NONE SEEN NONE SEEN /LPF NOTE This urine was analyzed for the presence of WBC, RBC, bacteria, casts, and other formed elements. Only those elements seen were reported. IRON, TOTAL Reviewed date:02/11/2024 03:55:11 PM Interpretation: Performing Lab:[facility] Prer[address] [id number] Matthew Jameson MD Notes/Report: 0 FASTING:NO FASTING: NO IRON, TOTAL 58 45-160 mcg/dL Ferritin, Serum Reviewed date:02/09/2024 12:34:12 PM Interpretation: Performing Lab:Josi LARA [place] Matthew Jameson MD Notes/Report: 0; 0; 0 FASTING:NO FASTING: NO FERRITIN 25 16-288 ng/mL Folate (Folic Acid), Serum- Reviewed date:02/09/2024 12:34:12 PM Interpretation: Performing Lab:[facility] [address], SzsgjNS[address] Matthew Jameson MD Notes/Report: 0; 0; 0 FASTING:NO FASTING: NO FOLATE, SERUM 6.2 Reference Range Low: <3.4 Borderline: 3.4-5.4 Normal: >5.4 Vitamin B12 Reviewed date:02/09/2024 12:34:12 PM Interpretation: Performing Lab:Josi LARA [place] Matthew Jameson MD Notes/Report: 0; 0; 0 FASTING:NO FASTING: NO VITAMIN B12 223 962-0551 pg/mL SPECIMEN [facility] Reviewed date:03/18/2024 12:04:23 PM Interpretation: Performing Lab:Josi LARA [id number] Matthew Jameson MD Notes/Report: FASTING: UNKNOWN SPECIMEN [facility] COMPROMISED Whole blood, unspun or partially spun gel barrier tube was received more than 6 hours since collection. A false elevation of K, Phos and LD as well as a false decrease in glucose may occur due to prolonged contact with red cells. COMPREHENSIVE METABOLIC PANE L Reviewed date:01/19/2024 12:40:01 PM Interpretation: Performing Lab:Josi LARA OwfgaTP[address] Matthew Jameson MD Notes/Report: FASTING GLUCOSE 87 65-99 mg/dL Fasting reference interval UREA NITROGEN (BUN) 12 7-25 mg/dL CREATININE 0.73 0.60-1.00 mg/dL EGFR 86 > OR = 60 mL/min/1.73m2 BUN/CREATININE RATIO SEE NOTE: 6-22 (calc) Not Reported: BUN and Creatinine are within reference range. SODIUM 140 135-146 mmol/L POTASSIUM 4.3 3.5-5.3 mmol/L CHLORIDE 105 98-110 mmol/L CARBON DIOXIDE 28 20-32 mmol/L CALCIUM 8.5 8.6-10.4 mg/dL PROTEIN, TOTAL 6.1 6.1-8.1 g/dL ALBUMIN 3.7 3.6-5.1 g/dL GLOBULIN 2.4 1.9-3.7 g/dL (calc) ALBUMIN/GLOBULIN RATIO 1.5 1.0-2.5 (calc) BILIRUBIN, TOTAL 0.5 0.2-1.2 mg/dL ALKALINE PHOSPHATASE 112 37-153 U/L AST 19 10-35 U/L ALT 7 6-29 U/L Hemoglobin A1c Reviewed date:01/21/2024 08:24:03 AM Interpretation: Performing Lab:JANE [facility]Rerlm[address] [id number] Matthew Jameson MD Notes/Report: FASTING HEMOGLOBIN A1c 6.4 <5.7 % of total Hgb For someone without known diabetes, a hemoglobin A1c value between 5.7% and 6.4% is consistent with prediabetes and should be confirmed with a follow-up test. For someone with known diabetes, a value <7% indicates that their diabetes is well controlled. A1c targets should be individualized based on duration of diabetes, age, comorbid conditions, and other considerations. This assay result is consistent with an increased risk of diabetes. Currently, no consensus exists regarding use of hemoglobin A1c for diagnosis of diabetes for children. URINALYSIS, COMPLETE Reviewed date:01/20/2024 08:01:28 AM Interpretation: Performing Lab: Notes/Report: URINALYSIS, COMPLETE Reviewed date:01/20/2024 08:01:28 AM Interpretation: Performing Lab: Notes/Report: CBC/Diff Ambiguous Default Reviewed date:01/21/2024 08:23:56 AM Interpretation: Performing Lab:JANE [facility]-Fsxbf[address], [id number] Matthew Jameson MD Notes/Report: FASTING WHITE BLOOD CELL COUNT 5.1 3.8-10.8 Thousand/uL RED BLOOD CELL COUNT 3.99 3.80-5.10 Million/uL HEMOGLOBIN 11.6 11.7-15.5 g/dL HEMATOCRIT 37.7 35.0-45.0 % MCV 94.5 80.0-100.0 fL MCH 29.1 27.0-33.0 pg MCHC 30.8 32.0-36.0 g/dL For adults, a slight decrease in the calculated MCHC value (in the range of 30 to 32 g/dL) is most likely not clinically significant; however, it should be interpreted with caution in correlation with other red cell parameters and the patient's clinical condition. RDW 14.0 11.0-15.0 % PLATELET COUNT 310 140-400 Thousand/uL MPV 9.5 7.5-12.5 fL ABSOLUTE NEUTROPHILS 2698 7911-0211 cells/uL ABSOLUTE LYMPHOCYTES 4127 853-3024 cells/uL ABSOLUTE MONOCYTES 367 200-950 cells/uL ABSOLUTE EOSINOPHILS 97 15-500 cells/uL ABSOLUTE BASOPHILS 61 0-200 cells/uL NEUTROPHILS 52.9 LYMPHOCYTES 36.8 MONOCYTES 7.2 EOSINOPHILS 1.9 BASOPHILS 1.2 TSH+FREE T4 Reviewed date:03/18/2024 12:04:23 PM Interpretation: Performing Lab:TP, [facility] [id number] Matthew Jameson MD Notes/Report: FASTING: UNKNOWN TSH 1.18 0.40-4.50 mIU/L T4, FREE 0.9 0.8-1.8 ng/dL CBC/Diff Ambiguous Default Reviewed date:03/16/2024 08:41:30 AM Interpretation: Performing Lab:TP, [facility]-[address] [id number] Matthew Jameson MD Notes/Report: FASTING: UNKNOWN WHITE BLOOD CELL COUNT 5.6 3.8-10.8 Thousand/uL RED BLOOD CELL COUNT 3.54 3.80-5.10 Million/uL HEMOGLOBIN 10.5 11.7-15.5 g/dL HEMATOCRIT 34.3 35.0-45.0 % MCV 96.9 80.0-100.0 fL MCH 29.7 27.0-33.0 pg MCHC 30.6 32.0-36.0 g/dL For adults, a slight decrease in the calculated MCHC value (in the range of 30 to 32 g/dL) is most likely not clinically significant; however, it should be interpreted with caution in correlation with other red cell parameters and the patient's clinical condition. RDW 13.9 11.0-15.0 % PLATELET COUNT 429 140-400 Thousand/uL MPV 9.7 7.5-12.5 fL ABSOLUTE NEUTROPHILS 3035 1667-5922 cells/uL ABSOLUTE LYMPHOCYTES 2038 850-3900 cells/uL ABSOLUTE MONOCYTES 364 200-950 cells/uL ABSOLUTE EOSINOPHILS 123 15-500 cells/uL ABSOLUTE BASOPHILS 39 0-200 cells/uL NEUTROPHILS 54.2 LYMPHOCYTES 36.4 MONOCYTES 6.5 EOSINOPHILS 2.2 BASOPHILS 0.7 COMPREHENSIVE METABOLIC PANE L Reviewed date:03/16/2024 08:41:15 AM Interpretation: Performing Lab:JANE, [facility], PmdhfQD[address] Matthew Jameson MD Notes/Report: FASTING: UNKNOWN GLUCOSE 95 65-99 mg/dL Fasting reference interval UREA NITROGEN (BUN) 11 7-25 mg/dL CREATININE 0.57 0.60-1.00 mg/dL EGFR 95 > OR = 60 mL/min/1.73m2 BUN/CREATININE RATIO 19 6-22 (calc) SODIUM 141 135-146 mmol/L POTASSIUM 5.3 3.5-5.3 mmol/L CHLORIDE 106 98-110 mmol/L CARBON DIOXIDE 26 20-32 mmol/L CALCIUM 8.5 8.6-10.4 mg/dL PROTEIN, TOTAL 5.7 6.1-8.1 g/dL ALBUMIN 3.3 3.6-5.1 g/dL GLOBULIN 2.4 1.9-3.7 g/dL (calc) ALBUMIN/GLOBULIN RATIO 1.4 1.0-2.5 (calc) BILIRUBIN, TOTAL 0.5 0.2-1.2 mg/dL ALKALINE PHOSPHATASE 106 37-153 U/L AST 25 10-35 U/L Results slightl y increased due to hemolysis. ALT 7 6-29 U/L EKG Reviewed date:03/14/2024 03:58:50 PM Interpretation: Performing Lab: Notes/Report: CT Scan : Head, without cont rast Reviewed date:01/07/2024 02:14:41 PM Interpretation: Performing Lab: Notes/Report: X ray : Knee, left Reviewed date:01/07/2024 02:14:29 PM Interpretation: Performing Lab: Notes/Report: X ray : Hip, left Reviewed date:01/07/2024 02:14:12 PM Interpretation: Performing Lab: Notes/Report: X ray : Forearm, left Reviewed date:01/07/2024 02:14:03 PM Interpretation: Performing Lab: Notes/Report: X ray : Elbow, left Reviewed date:01/07/2024 02:13:53 PM Interpretation: Performing Lab: Notes/Report: CT Scan : Pelvis w/o IV Cont rast Reviewed date:01/07/2024 02:13:40 PM Interpretation: Performing Lab: Notes/Report: CT Scan : Lumbar Spine Reviewed date:01/07/2024 02:13:30 PM Interpretation: Performing Lab: Notes/Report: CT Scan : Angio ABD W W/O Co nt Reviewed date:01/07/2024 02:13:15 PM Interpretation: Performing Lab: Notes/Report: CT Scan : Angio Chest W W/O Contrast Reviewed date:01/07/2024 02:13:04 PM Interpretation: Performing Lab: Notes/Report: CT Scan : C-Spine W/O Contra st Reviewed date:01/07/2024 02:12:54 PM Interpretation: Performing Lab: Notes/Report: CT Scan : Thoracic Spine W/O Contrast Reviewed date:01/07/2024 02:12:44 PM Interpretation: Performing Lab: Notes/Report: X ray : Femur, left Reviewed date:01/07/2024 02:12:35 PM Interpretation: Performing Lab: Notes/Report: EKG Reviewed date:01/07/2024 02:12:25 PM Interpretation: Performing Lab: Notes/Report: Urine analysis (IH) Reviewed date:01/25/2024 03:47:13 PM Interpretation: Performing Lab: Notes/Report: Esophagogastroduodenoscopy ( EGD) Reviewed date:05/09/2024 10:21:03 AM Interpretation: Performing Lab: Notes/Report: CBC/Diff Ambiguous Default Reviewed date:03/28/2024 01:34:05 PM Interpretation: Performing Lab:JANE, [facility], FwedbPH[address] Matthew Jameson MD Notes/Report: FASTING: UNKNOWN WHITE BLOOD CELL COUNT 4.2 3.8-10.8 Thousand/uL RED BLOOD CELL COUNT 3.73 3.80-5.10 Million/uL HEMOGLOBIN 11.4 11.7-15.5 g/dL HEMATOCRIT 35.2 35.0-45.0 % MCV 94.4 80.0-100.0 fL MCH 30.6 27.0-33.0 pg MCHC 32.4 32.0-36.0 g/dL For adults, a slight decrease in the calculated MCHC value (in the range of 30 to 32 g/dL) is most likely not clinically significant; however, it should be interpreted with caution in correlation with other red cell parameters and the patient's clinical condition. RDW 13.8 11.0-15.0 % PLATELET COUNT 271 140-400 Thousand/uL MPV 10.1 7.5-12.5 fL ABSOLUTE NEUTROPHILS 2348 5239-6973 cells/uL ABSOLUTE LYMPHOCYTES 7644 546-2686 cells/uL ABSOLUTE MONOCYTES 361 200-950 cells/uL ABSOLUTE EOSINOPHILS 101 15-500 cells/uL ABSOLUTE BASOPHILS 21 0-200 cells/uL NEUTROPHILS 55.9 LYMPHOCYTES 32.6 MONOCYTES 8.6 EOSINOPHILS 2.4 BASOPHILS 0.5 Reason For Referral No Information Medications Medication SIG (Take, Route, Frequency, Duration) Notes Start Date End Date Status Albuterol Sulfate HFA 108 (90 Base) MCG/ACT 1 puff as needed Inhalation every 4-6 hours Active Trelegy Ellipta 200-62.5-25 MCG/ACT Inhale 1 puff by mouth once daily. Rinse mouth after each use for 30 days Active Albuterol Sulfate 1.25 MG/3ML 3 ml as needed Inhalation Three times a day dx j44.9 for 90 days Active Omeprazole 40 MG 1 capsule Orally twice a day for 30 days 06/14/2020 Active Ranolazine ER 500 MG 1 tablet Orally Twice a day Active Montelukast Sodium 10 MG Take 1 tablet by mouth once daily for 90 days Active BD Syringe/Needle 25G X 5/8 1 ML use one per month for B-12 injections for 90 days please dispense the one that is available for patient. Nic 06/30/2024 Active Midodrine HCl 5 MG 1 tablet at 7 am 1 tablet at 11 am Orally for 30 days As needed Active Metoprolol Tartrate 25 MG 1 tablet with food Orally once a day at bedtime for 90 days Active Vitamin B-6 100 MG 1 tablet Orally Once a day Unknown Keppra 500 MG 1 tablet Orally every 12 hrs for 90 days Active Vitamin B-1 100 MG 1 tablet Orally Once a day Unknown Gabapentin 300 MG TAKE 1 CAPSULE EVERY MORNING AND TAKE 3 CAPSULES AT BEDTIME for 90 days Active traMADol HCl 50 MG 1 tablet as needed ACUTE PAIN EXCEPTION Orally Two times a day for 10 days PRN 06/02/2023 Unknown Sucralfate 1 GM 1 tablet on an empty stomach Oral Twice a day for 30 days 03/14/2024 Unknown Eliquis 5 MG Take 1 tablet Orally Twice a day for 90 days Active Effexor XR 75 MG 1 capsule with food Oral Once a day for 90 days Active Flonase Allergy Relief 50 MCG/ACT 1 spray in each nostril Nasally Twice a day for 30 days 05/09/2024 Unknown Cyanocobalamin 1000 MCG/ML 1,000mcg / 1cc q month Injection once a month for 90 days Active ARIPiprazole 20 MG 1 tablet Orally Once a day for 30 days 05/02/2024 Unknown Atorvastatin Calcium 40 MG 1 tablet Orally every night for 90 days Active ALPRAZolam 0.25 MG 1 tablet Orally Twice a day for 10 days As needed 05/02/2024 Unknown Immunizations Vaccine Route Administration Date Status Comme nts COVID-19 Pfizer Unknown 03/17/2020 Administered COVID-19 Pfizer Unknown 04/09/2020 Administered Flucelvax Quadrivalent pf (4 years) Unknown 12/12/2016 Administered Flucelvax Quadrivalent pf (4 years) IM Intramuscular 12/31/2018 Administered Flulaval Unknown 01/07/2011 Administered Flulaval Unknown 11/10/2011 Administered Fluvirin (4 + years dose) Unknown 11/15/2012 Administer ed Fluvirin (4 + years dose) Unknown 12/24/2013 Administer ed Fluvirin (4 + years dose) Unknown 11/09/2014 Administer ed Fluvirin (4 + years dose) IM Intramuscular 01/04/2016 Admi nistered Fluzone High-Dose pf (>=65 yr) Unknown 12/11/2017 Administered Influenza, split virus (6-35 months dose) IM Intramuscular 02/19/2006 Administered Pneumococcal conjugate PCV 13 IM Intramuscular 01/04/2016 Administered Pneumococcal polysaccharide PPV23 IM Intramuscular 12/03/2005 Administered Pneumococcal polysaccharide PPV23 Unknown 01/20/2012 Administered Tetanus toxoid, absorbed IM Intramuscular 06/06/2009 Admin istered Social History Sex Assigned At : Social History Observation Description Sex Assigned At Female Household Question Answer Notes Marital status: Number of adults in household: 2 Section Notes: 2-3 glass of wine on daily b asis 2-3 glass of wine on daily b asis 2-3 glass of wine on daily b asis 2-3 glass of wine on daily b asis 2-3 glass of wine on daily b asis 2-3 glass of wine on daily b asis 2-3 glass of wine on daily b asis 2-3 glass of wine on daily b asis 2-3 glass of wine on daily b asis Problems Problem Type SNOMED Code ICD Code Onset Dates Problem Status W/U Status Risk Notes Problem Anemia (329617563) Anemia, unspecified (D64.9) Active confirmed Problem 927491203 Other thrombophilia (D68.69) Active confirmed Problem Type 2 diabetes mellitus with peripheral angiopathy (901137304) Type 2 diabetes mellitus with diabetic peripheral angiopathy without gangrene (E11.51) 018 Active confirmed Problem 381684585 Major depressive disorder, recurrent, mild (F33.0) Inactive confirmed Problem 27138045 Major depressive disorder, recurrent, moderate (F33.1) Active confirmed Problem 19961458 Unspecified mood [affective] disorder (F39) Inactive confirmed Problem 99113384 Alzheimer's disease, unspecified (G30.9) Active confirmed Problem Obstructive sleep apnea syndrome (disorder) (35469767) Obstructive sleep apnea (adult) (pediatric) (G47.33) 015 Active confirmed Problem Polyneuropathy (98000509) Polyneuropathy, unspecified (G62.9) Inactive confirmed Problem Critical illness myopathy (232294743) 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) Active confirmed Problem Essential hypertension (68734389) Essential (primary) hypertension (I10) 011 Active confirmed Problem 503112026 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) Active confirmed Problem 279978577 Paroxysmal atria l fibrillation (I48.0) Active confirmed Problem Sick sinus syndrome (07031873) Sick sinus syndrome (I49.5) 013 Active confirmed Problem Carotid artery occlusion (897482205) Occlusion and stenosis of unspecified carotid artery (I65.29) 016 Active confirmed [id number] 400- Problem Atherosclerosis of aorta (93427770) Atherosclerosis of aorta (I70.0) 014 Active confirmed Problem Allergic rhinitis (29068196) Allergic rhinitis, unspecified (J30.9) 018 Active confirmed Problem 12771364 Simple chronic bronchitis (J41.0) 017 Active confirmed Problem Chronic obstructive pulmonary disease (98772600) Chronic obstructive pulmonary disease, unspecified (J44.9) Inactive confirmed Problem Gastro-esophageal reflux disease without esophagitis (907867325) Gastro-esophageal reflux disease without esophagitis (K21.9) Inactive confirmed Problem 76657067 Other specified disorders of bone density and structure, other site (M85.88) Inactive confirmed Problem Menopause (045207337) Menopausal and female climacteric states (N95.1) Inactive confirmed Problem 76633918 Heartburn (R12) Active confirmed Problem Cervix excision (068377298) Acquired absence of cervix with remaining uterus (Z90.712) 015 Problem resolved confirmed Problem Cardiac pacemaker in situ (362938110) Presence of cardiac pacemaker (Z95.0) 016 Active confirmed Problem History of bariatric surgical procedure (359298664) Bariatric surgery status (Z98.84) 011 Problem resolved confirmed Problem 356548622 Prediabetes (R73.03) Inactive confirmed Problem 401775355 Type 2 diabetes mellitus without complication, without long-term current use of insulin (E11.9) Inactive confirmed Problem 45823365 Chronic bronchitis, unspecified chronic bronchitis type (J42) Inactive confirmed Problem 61611231 Uncomplicated alcohol dependence (F10.20) Active confirmed Problem 710707032083311 Primary osteoarthritis of right knee (M17.11) Active confirmed Problem 83673061 Senile purpura (D69.2) Active confirmed Problem 422412924988273 Primary osteoarthritis of left knee (M17.12) Active confirmed Problem 10648429 Iron deficiency anemia, unspecified iron deficiency anemia type (D50.9) Active confirmed Problem [id number] Anemia, unspecified type (D64.9) Active confirmed Problem 064275942 Chronic atrial fibrillation (I48.20) Inactive confirmed Problem 969546629 Insomnia, unspecified type (G47.00) Active confirmed Problem 991222986 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) Inactive confirmed Problem 087770088 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) Active confirmed Problem 06680795 Seizure (R56.9) Active confirmed Problem 42445219 Sinusitis, unspecified chronicity, unspecified location (J32.9) Inactive confirmed Problem [id number] Pre-op evaluatio n (Z01.818) Inactive confirmed Problem 445908070187895 Primary osteoarthritis of left hip (M16.12) Active confirmed Problem 963293303 PAD (peripheral artery disease) (I73.9) Active confirmed Problem 809743192 Dyslipidemia (E78.5) Active confirmed Problem 59936362 Type 2 diabetes mellitus with other specified complication, without long-term current use of insulin (E11.69) Active confirmed Problem 942381628 Thrombophilia (D68.59) Inactive confirmed Problem 003901913 Malignant melanoma, unspecified site (C43.9) Active confirmed Problem 9022966950769 Chronic heart failure with preserved ejection fraction (HFpEF) (I50.32) Active confirmed Problem Diastolic heart failure (093699695) Heart failure with preserved left ventricular function (HFpEF) (I50.30) Inactive confirmed Vital Signs Heart Rate 90 /min 07/18/2024 Respiratory Rate 18 /min 07/18/2024 Blood pressure diastolic 64 mm Hg 07/18/2024 Oximetry 95 % 07/18/2024 Height 61 in 07/18/2024 Blood pressure systolic 108 mm Hg 07/18/2024 Weight 138.2 lbs 07/18/2024 BMI 26.11 kg/m2 07/18/2024 Procedures Procedure Date Ordered Date Performed Result Body Sit e ANNUAL- Medicare- Subsequent 05/26/2024 undefin ed Care of Older Adults (COA) 05/26/2024 undefined Encounters Encounter Location Date Provider Diagnosis [facility] [place] [address] 07/18/2024 Kolton Vazquez Essential (primary) hypertension I10 ; 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 ; Dyslipidemia E78.5 ; Type 2 diabetes mellitus with other specified complication, without long-term current use of insulin E11.69 ; Iron deficiency anemia, unspecified iron deficiency anemia type D50.9 and Major depressive disorder, recurrent, moderate F33.1 [facility] [place] [address] 01/18/2024 MAX LOPEZ Dyslipidemia E78.5 ; Essential (primary) hypertension I10 and Type 2 diabetes mellitus with diabetic peripheral angiopathy without gangrene E11.51 [facility] [place] [address] 01/26/2024 MAX LOPEZ Hospital discharge follow-up Z09 ; 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 ; Essential (primary) hypertension I10 ; Heart failure with preserved left ventricular function (HFpEF) I50.30 ; Spontaneous ecchymoses R23.3 ; Chronic atrial fibrillation I48.20 ; Pre-op evaluation Z01.818 ; Anemia, unspecified type D64.9 ; Other thrombophilia D68.69 and Simple chronic bronchitis J41.0 [facility] [address] [address] 02/15/2024 MAX LOPEZ Type 2 diabetes pernell itus with diabetic peripheral angiopathy without gangrene E11.51 ; Essential (primary) hypertension I10 ; Dyslipidemia E78.5 and Primary osteoarthritis of left knee M17.[address] [address] 03/14/2024 MAX LOPEZ Primary osteoarthrit is of left knee M17.12 ; Anemia, unspecified type D64.9 ; Heartburn R12 ; Dehydration E86.0 ; Fatigue, unspecified type R53.83 ; Polyarthralgia M25.50 ; Dyslipidemia E78.5 ; Prediabetes R73.03 and Encounter for other administrative examinations Z02.89 [facility] [address] [address] 03/23/2024 MAX LOPEZ Anemia, unspecified type D64.9 ; Essential (primary) hypertension I10 ; Uncomplicated alcohol dependence F10.20 and Heartburn R12 [facility] [address] [address] 05/02/2024 MAX LOPEZ Essential (primary) hypertension I10 ; Anemia, unspecified type D64.9 ; Dyslipidemia E78.5 ; Primary osteoarthritis of left knee M17.12 ; Heartburn R12 ; Major depressive disorder, recurrent, moderate F33.1 ; Primary osteoarthritis of left hip M16.12 ; Seizure R56.9 ; Other specified hypotension I95.89 and Allergic rhinitis, unspecified J30.[address] [address] 05/09/2024 Paulina Nardeo Simple chronic bron hitis J41.0 ; Sinusitis, unspecified chronicity, unspecified location J32.9 and Other fatigue R53.[address] [address] 05/26/2024 HENRRY CONNORS Encounter for genera l adult medical examination without abnormal findings Z00.00 ; Encounter for screening for malignant neoplasm of colon Z12.11 ; Encounter for screening mammogram for malignant neoplasm of breast Z12.31 ; Encounter for examination of eyes and vision without abnormal findings Z01.00 ; Encounter for screening for other disorder Z13.89 ; Asymptomatic menopausal state Z78.0 and BMI 26.0-26.9,adult Z68.[address] [address] 06/30/2024 HENRRY CONNORS Anemia, unspecified D64.9 ; Syncope, unspecified syncope type R55 ; Low serum potassium E87.6 ; B12 deficiency E53.8 ; Left hip pain M25.552 and Hospital discharge follow-up Z09 [facility] [address] [place] [address] 01/04/2024 MAX LOPEZ [facility] [address] [place] [address] 05/04/2024 MAX LOPEZ [facility] [address] [place] [phone] 05/12/2024 MAX LOPEZ [facility] [address] [place] [address] 06/23/2024 MAX LOPEZ [facility] [address] [place] [address] 06/27/2024 MAX LOPEZ Primary osteoarthrit is of left hip M16.12 ; Near syncope R55 ; 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 and healthy balanced diet , regular exercise, stay at healthy weight, 01/26/2024 Hospital discharge follow-up (ICD-10 - Z09) 02/15/2024 Type 2 diabetes mellitus with diabetic peripheral angiopathy without gangrene (ICD-10 - E11.51) Explained relation between diabetes and CV disease, retinopathy, nephropathy, and neuropathy. try to keep A1c on target , Home blood glucose monitoring t include pre-meal, and post-meal glucose (140-160 mg/dL). need for yearly flu shots, diabetic foot exam, diabetic eye exam, daily foot self-inspection. Educated regarding compliance with treatment hypoglycemia prevention, and use of aspirin, JUS inhibitor, and statin role explained. 02/15/2024 Essential (primary) hypertension (ICD-10 - I10) Counselled on Achieve target BP ,lifestyle changes, balanced sleep, stress, low impact exercise, DASH diet., High Blood Pressure: Care Instructions material was printed 03/14/2024 Primary osteoarthritis of left knee (ICD-10 - M17.12) RECOMMENDATIONS given include: heat therapy , passive ROM , active ROM , and jus support ., Knee Arthritis: Care Instructions material was printed 03/14/2024 Anemia, unspecified type (ICD-10 - D64.9) Counselled on Monitor labs and supplement with OTC iron /Vitamin C/B12/ folate, stay updated with cancer screening . 03/23/2024 Essential (primary) hypertension (ICD-10 - I10) Counselled on Achieve target BP ,lifestyle changes, balanced sleep, stress, low impact exercise, DASH diet., High Blood Pressure: Care Instructions material was printed 03/23/2024 Anemia, unspecified type (ICD-10 - D64.9) Counselled on Monitor labs and supplement with OTC iron /Vitamin C/B12/ folate, stay updated with cancer screening . 05/02/2024 Essential (primary) hypertension (ICD-10 - I10) Counselled on Achieve target BP ,lifestyle changes, balanced sleep, stress, low impact exercise, DASH diet., High Blood Pressure: Care Instructions material was printed 05/02/2024 Anemia, unspecified type (ICD-10 - D64.9) Counselled on Monitor labs and supplement with OTC iron /Vitamin C/B12/ folate, stay updated with cancer screening . 05/09/2024 Simple chronic bronchitis (ICD-10 - J41.0) Avoid lung infections. yearly flu vaccine and pneumococcal vaccine ,avoid smoking if applicable. 05/09/2024 Sinusitis, unspecified chronicity, unspecified location (ICD-10 - J32.9) Avoid upper respiratory infections. Avoid contact with people who have colds or who are sick with other infections. Wash your hands frequently with soap and water, especially before meals. Take OTC Zyrtec/ Josefina , Flonase, Nasal spray. 05/26/2024 Encounter for general adult medical examination without abnormal findings (ICD-10 - Z00.00) A current height, weight, BMI, blood pressure, pulse were recorded in the vitals section of the note and have been reviewed. Individual and family medical history was reviewed and updated. A list of current providers and suppliers reviewed. Medication list reviewed. Intense Behavioral Therapy (IBT) for CV Risk Reduction, (pre)diabetes, HTN assessed and reviewed. Fall precaution counseled: fall precaution instructions given includes: Remove any hazards from walkways. Secure loose rugs with double-faced tape, or remove loose rugs from your home. Use nonslip mats in your bathtub or shower Place night lights in your bedroom, bathroom and halls. Advance care planning counseled and reviewed. Patient Educated with: Annual Physicals Handout- UPDATED .pdf (Annual Physicals Handout- UPDATED .pdf) 06/27/2024 Primary osteoarthritis of left hip (ICD-10 - M16.12) 06/30/2024 Anemia, unspecified (ICD-10 - D64.9) Recommendations include: laboratory monitoring and treatment adherance. 06/30/2024 Syncope, unspecified syncope type (ICD-10 - R55) 07/18/2024 Essential (primary) hypertension (ICD-10 - I10) Counselled on Achieve target BP ,lifestyle changes, balanced sleep, stress, low impact exercise, DASH diet. 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 06/27/2024 Near syncope (ICD-10 - R55) 05/26/2024 Encounter for screening for malignant neoplasm of colon (ICD-10 - Z12.11) pt reports she did colonoscopy in 2023 in [place]. Will bring info in 2024. 05/09/2024 Other fatigue (ICD-10 - R53.83) Discussed with patient balanced nutrition And fluid, adequate restorative sleep, low impact daily exercise up to 5 hours per week. Also discussed increasing plant based, whole-grain food, stress relieving techniques explained to the patient, including breathing technique. 05/02/2024 Dyslipidemia (ICD-10 - E78.5) Counseled on diet and exercise., target lipid levels Compliance with treatment regimen,, daily excercise low impact option of DASH / mediterranean diet explained 03/23/2024 Uncomplicated alcohol dependence (ICD-10 - F10.20) Counselled patient on effects of Alcohol risk of of injury and fall precaution. set a quit date , remove alcohol from house , avoid time with others drinking alcohol, take on new activities , to not give up because of past failures , advised to not drink and drive 03/14/2024 Heartburn (ICD-10 - R12) Take otc antacid PRN, wait 2 to 3 hours before you lie down after meals, avoid food that flare it up, if needed raise the head of your bed 6 to 8 inches foam wedge under the head of your mattress. 01/26/2024 Essential (primary) hypertension (ICD-10 - I10) Counselled on Achieve target BP ,lifestyle changes, balanced sleep, stress, low impact exercise, DASH diet. 02/15/2024 Dyslipidemia (ICD-10 - E78.5) Counseled on diet and exercise., target lipid levels Compliance with treatment regimen,, daily excercise low impact option of DASH / mediterranean diet explained 01/18/2024 Essential (primary) hypertension (ICD-10 - I10) 01/18/2024 Type 2 diabetes mellitus with diabetic peripheral angiopathy without gangrene (ICD-10 - E11.51) 03/14/2024 Dehydration (ICD-10 - E86.0) Recommendations include: increase oral fluid intake, supplement with a glucose and electrolyte containing solution. 02/15/2024 Primary osteoarthritis of left knee (ICD-10 - M17.12) Mobilize each joint/muscle gently, Regular exercise and a healthy diet, calcium and vitamin D supplement. Use heat or ice cold pack to ease pain Tyelnol, NSAIDS explained, also topical meds like Aspercream etc. 01/26/2024 Heart failure with preserved left ventricular function (HFpEF) (ICD-10 - I50.30) chek vitals and dry weight , monitor fluid and salt intake , follow therapeutic lifstyle changes, modify risk factors. 03/23/2024 Heartburn (ICD-10 - R12) Take otc antacid PRN, wait 2 to 3 hours before you lie down after meals, avoid food that flare it up, if needed raise the head of your bed 6 to 8 inches foam wedge under the head of your mattress. 05/02/2024 Primary osteoarthritis of left knee (ICD-10 - M17.12) RECOMMENDATIONS given include: heat therapy , passive ROM , active ROM , and jus support . 05/26/2024 Encounter for screening mammogram for malignant neoplasm of breast (ICD-10 - Z12.31) per pt, she is doing MMG annually in [place]. Will bring the info in Dec 2024. 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 07/18/2024 Type 2 diabetes mellitus with other [...] aspirin, JUS inhibitor, and statin role explained. 06/30/2024 Left hip pain (ICD-10 - M25.552) Mobilize each joint/muscle gently, Regular exercise and a healthy diet, calcium and vitamin D supplement. Use heat or ice cold pack to ease pain Tyelnol, NSAIDS explained, also topical meds like Aspercream etc. 07/18/2024 Iron deficiency anemia, unspecified iron deficiency anemia type (ICD-10 - D50.9) Counselled on Monitor labs and supplement with OTC iron /Vitamin C/B12/ folate, stay updated with cancer screening . 05/26/2024 Encounter for examination of eyes and vision without abnormal findings (ICD-10 - Z01.00) per pt, she does eye exam annually with [facility]. MR requested. 06/27/2024 Hypokalemia (ICD-10 - E87.6) 05/02/2024 Heartburn (ICD-10 - R12) Take otc antacid PRN, wait 2 to 3 hours before you lie down after meals, avoid food that flare it up, if needed raise the head of your bed 6 to 8 inches foam wedge under the head of your mattress. 03/14/2024 Fatigue, unspecified type (ICD-10 - R53.83) Discussed with patient balanced nutrition And fluid, adequate restorative sleep, low impact daily exercise up to 5 hours per week. Also discussed increasing plant based, whole-grain food, stress relieving techniques explained to the patient, including breathing technique. 01/26/2024 Spontaneous ecchymoses (ICD-10 - R23.3) Qualitative platelet defect, patient is currently taking aspirin, patient has easy ecchymosis without active bleeding on upper extremities at times. 01/26/2024 Chronic atrial fibrillation (ICD-10 - I48.20) Pt was recommended to comply with the treatment, including OAC/NOAC follow diet and excercise , take injury precautions. 03/14/2024 Polyarthralgia (ICD-10 - M25.50) Mobilize each joint/muscle gently, Regular exercise and a healthy diet, calcium and vitamin D supplement. Use heat or ice cold pack to ease pain Tyelnol, NSAIDS explained, also topical meds like Aspercream etc. 05/02/2024 Major depressive disorder, recurrent, moderate (ICD-10 - F33.1) Counselled on lifestyle modification , balance diet, sleep, low impact exercise, avoidance of stimulants, stress reduction with reduce stress-full situations. 05/26/2024 Encounter for screening for other disorder (ICD-10 - Z13.89) Depression Screening and Alcohol Misuse Screening completed. 07/18/2024 Major depressive disorder, recurrent, moderate (ICD-10 - F33.1) Counselled on lifestyle modification , balance diet, sleep, low impact exercise, avoidance of stimulants, stress reduction with reduce stress-full situations. 06/30/2024 Hospital discharge follow-up (ICD-10 - Z09) Hospital record reviewed with pt and med reconciliation was completed. 05/26/2024 Asymptomatic menopausal state (ICD-10 - Z78.0) UTD. last dexa on 04/08/2023. 05/02/2024 Primary osteoarthritis of left hip (ICD-10 - M16.12) Recommendations include: heat therapy, passive ROM, active ROM, JUS bandaging support, RICE (rest, ice, compression, elevate) therapy. 01/26/2024 Pre-op evaluation (ICD-10 - Z01.818) 03/14/2024 Dyslipidemia (ICD-10 - E78.5) Counseled on diet and exercise., target lipid levels Compliance with treatment regimen,, daily excercise low impact option of DASH / mediterranean diet explained 03/14/2024 Prediabetes (ICD-10 - R73.03) Counseled pt on diet and exercise. Low glycemic index foods explained 01/26/2024 Anemia, unspecified type (ICD-10 - D64.9) Counselled on Monitor labs and supplement with OTC iron /Vitamin C/B12/ folate, stay updated with cancer screening . 05/26/2024 BMI 26.0-26.9,adult (ICD-10 - Z68.26) Explained risk factors, advised low glycemic index foods, low impact exercise daily, and a balanced diet. 05/02/2024 Seizure (ICD-10 - R56.9) compliance with meds, seizure precautions 05/02/2024 Other specified hypotension (ICD-10 - I95.89) Recommendation includes: take medicines only as prescribed. If you feel dizzy or lightheaded, sit down or lie down for a few minutes. Avoid sudden position changes. Get up slowly from bed or after sitting for a long time. Drink plenty of fluids, enough so that your urine is light yellow or clear like water. Avoid or limit alcohol, caffeine. 01/26/2024 Other thrombophilia (ICD-10 - D68.69) Increase chances of ecchymosis, bleeding with trivial trauma and necessary precaution explained . 03/14/2024 Encounter for other administrative examinations (ICD-10 - Z02.89) COA done 01/26/2024 Simple chronic bronchitis (ICD-10 - J41.0) RECOMMENDATIONS [...] triggers, avoidance of cigarette smoke, breathing exercises 05/02/2024 Allergic rhinitis, unspecified (ICD-10 - J30.9) counselled on universal precaution, environment exposure control , pets, cigarette smoke, irritants and allergens including dust mites, pets, smoke . Explained saline nasal spray, otc meds flonase/nasacort, antihistamine like josefina/claritin/zyr hellen 06/23/2024 Other HPI ,exam assessment, plan and data keyer performed by Ashlee Argueta APRN - - The visit was conducted with the use of interactive ( video /audio) telecommunication that permitted real time communication between ( patient) and Myself. (Patient) verbally consented to participation and recieved service being present at Home. 07/18/2024 Other 01/26/2024 Other RECOMMENDATIONS include adequate nutrition, up to date with vaccination, monitor with serial PFTs. Avoid environmental conditions like change in heat cold, altitude, or exposure to dust smoke, and air pollution. Monitor for worsening clinical symptoms including cough, wheezing, increased use of short-acting beta-agonist. Avoidance of heavy exertion, identification and avoidance of triggers, avoidance of cigarette smoke, breathing exercises 02/15/2024 Other Patient medical ly cleared to have procedure, see attached surgical risk assessment. 03/14/2024 Other HPI ,exam assessment, plan and data keyer done in collaboration with Maninder Lala PA-C Patient educated on lifestyle modification including daily low impact exercise/walk Continue Aspirin and statin Patient advised to be compliant with low fat heart healthy diet, exercise, and monitor with regular pacer check. advised adequate blood pressure control and heart rate. Continue Aspirin and statin, lifestyle modification, risk factor modification Counselled on Achieve target BP ,lifestyle changes, balanced sleep, stress, low impact exercise, DASH diet. 05/02/2024 Other Advised to stop zolpidem Celebrex. Increase Effexor 75 mg daily. Given as needed Xanax. Add aripiprazole 20 mg nightly. Increase midodrine 5 mg at 7:00 11:00 on 4:00. Patient also has osteoarthritis left hip as well as left knee patient has injection left hip by IR intervention radiologist following with orthopedic scheduled surgery possibly in 3 months spouse/ family present discussed with both 05/09/2024 Other Evaluation and management performed by HILDA Pearson Telehealth visit today: pt verbally agreed with telehealth visit. pt's location during today's encounter: pt's home proivder's location during today's visit: [facility] (clinic) Video/audio: 05/26/2024 Other *Advanced Care Directive in file. pt reports she will do hip surgery in June and is planning to go to [place] in July, and will return to [place] in 2024. 06/30/2024 Other RECOMMENDATIONS given include: routine exercise ,balanced diet and watch for neuropathy symptoms . Plan Of Treatment Pending Test Test Name Order Date Vitamin B12 03/14/2024 Folate (Folic Acid), Serum- 03/14/2024 Ferritin, Serum 03/14/2024 Comp. Metabolic Panel (14) 01/18/2024 Comp. Metabolic Panel (14) 01/26/2024 Comp. Metabolic Panel (14) 06/30/2024 PT/INR Prothrombin with INR 01/26/2024 IRON, TOTAL 03/14/2024 Care of Older Adults (COA) 05/13/2023 Future Test Test Name Order Date Hemoglobin A1c 04/27/2024 Ferritin, Serum 04/27/2024 Lipid Panel 04/27/2024 Comp. Metabolic Panel (14) 04/27/2024 IRON AND TOTAL IRON BINDING CAPACITY URINALYSIS, COMPLETE 04/27/2024 VITAMIN B12/FOLATE, SERUM PANEL 04/27/19 25 CBC/Diff Ambiguous Default 04/27/2024 Next Appt Details Provider Name:MAX LOPEZ, 01/18/2025 08:30:00 AM, [address] [place] [address], [phone], Provider Name:Kolton Vazquez, 04:40:00 PM, [address] [place] [address], [phone], Provider Name:Girma nance, 05/29/2025 01:50:00 PM, [address] [place] [address], [phone], Insurance Providers Payer Name Payer Address Payer Phone Subscriber Number Group Number Insured Name Patient Relationship to Insured Coverage Start Date Coverage End Date [place] J9 [facility] [address] [address] [place], [place] [id number] BLANK TIESHA IDA Self - patient is the insured 4 [employer] and [facility] [address] [place], [place] [id number] IDA MOTLEY Self - patient is the insured 5 Medications Administered Medication Instructions Date of Administration Dosage Notes Depomedrol 80mg 05/31/2020 1 units Depomedrol 80mg 01/23/2021 1 units Depomedrol 80mg 03/27/2023 1 units Depomedrol 80mg 03/30/2023 1 units Depomedrol 80mg 04/02/2023 1 units Normal Saline 500ml 03/14/2024 500 mL Rocephin 250mg 12/23/2018 1000 mg Rocephin 250mg 04/08/2019 1000 mg Solumedrol 125mg 12/23/2018 1 units Solumedrol 125mg 04/08/2019 1 units Vitamin B-12 1000 mcg 04/02/2019 1000 Vitamin B-12 1000 mcg 04/04/2019 1000 Vitamin B-12 1000 mcg 04/05/2019 1000 Vitamin B-12 1000 mcg 04/06/2019 1000 Vitamin B-12 1000 mcg 04/11/2019 1000 Vitamin B-12 1000 mcg 04/19/2019 1000 Vitamin B-12 1000 mcg 05/02/2019 1000 Vitamin B-12 1000 mcg 05/09/2019 1000 Medical (General) History Medical History History ICD Code Bariatric surgery status (resolved 10/15) ASVD aorta chest x-ray 03/23/2023 PFT 03/18/2023 FEV1 111, FEV1 /FVC ratio 97, FEF 25 and 75 is 111, reversibility 16% FVC, FEV1 is 17% reversible, FEF reversibility 22%, DLCO 85 CHF stage I diastolic dysfunction EF is 60-65% 2D echo mild TR PAD ultrasound 03/26/2021 [facility] right 1.0 left 1.0 ASVD with slight abnormal waveform PFT 03/18/2023 FEV1 111, FEV1 /FVC ratio 97, FEF 25 to 75% is 111, reversibility 17% FEV1 and 16% FVC, DLCO 85% CTA chest 03/30/2023 ASVD aorta otherwise unremarkable DEXA scan 03/29/2023 T-score hip -1.5 FRAX score hip 3.0 and major fracture 13%, spine -0.6 L1 osteopenia CHF 2D echo stage I diastolic dysfunctio n 03/13/2023 EF is low normal 50-55% Hypertensive cardiomegaly mo derately dilated left ventricle 2D echo 03/13/2023 Acquired absence of cervix with remainin g uterus (resolved 02/04/2016) undefined 2023.01.15 CXR ASVDa. [id number] 7 Alcohol use -patient has 3 or more drink s of wine almost on a daily basis Surgical History Surgery Date(Month/Year) Arthroscopy: Left knee 2004 Breast Biopsy Hysterectomy Partial (ovaries remaining) 1986 Liyah Fundoplasty 1996 Pacemaker Implantation ([facility])- 2014 Gastroplasty 1986 Eusebia en Y gastric bypass Bilateral upper lid lift 05/10/2021 Total Knee Replacement-right 05/27/2022 knee revision 04/21/23 left hip replacement 06/07/2024 Hospitalization History Reason Date(Month/Year) Hysterectomy 1987 DX syncope @ [facility] 06/19/2024-06/23/2024 DX lt hip pain @ [facility] 06/07/2024-06/08/2024 DX fall @ [facility] ER VISIT 12/30/2023 melanoma removed from arm 02/17/2022 pt passed out 10/09/20-10/11/20 Right knee replacement 07/21/2017
--- OUTSIDE RECORDS SUMMARY | 2024-08-25 12:27 | XMS_ITS | Patient Health Record ---
Author Organization [facility] Address [address] [place] [address] 44 [address] [facility] [address] [place] [address] Care Team Providers Care Extruder Operator Horizontal Name Role Phone Joy PUENTES, Fran Primary Care Provider UnavailAdi Bermeo Unavailable [phone] Adi Sanabria MD Unavailable Unavailable Crispin Tai JR Unavailable [phone] Allergies Allergen (clinical drug ingredient) Drug/Non Drug Allergy documented on EMR Reaction Allergy Type Onset Date Status hydromorphone Dilaudid itching Drug Allergy Act lico codeine codeine itching Drug Allergy Active Reason For Referral No Information Medications Medication SIG (Take, Route, Fr equency, Duration) Notes Start Date End Date Status raloxifene 60 mg for 90 Act lico Multaq 400 mg 1 tab(s) orally 2 ti mes a day for 30 day(s) Active Tramadol 50 mg 1 tab(s) orally every 6 hours Active eszopiclone 1 mg TAKE 1 TABLET BY RYAN ONCE DAILY NEEDED AT BEDTIME for 30 Active Eliquis 5 mg for 90 Active levETIRAcetam 500 mg for 90 Active omeprazole 40 mg for 90 Act lico gabapentin 300 mg for 90 Ac tive Social History Tobacco Use: Social History Observation Description Date Details (start date - stop date) Never Smoker NA - NA Smoking: Question Answer Notes Are you a: never smoker alcohol screening Question Answer Notes Did you have a drink containing alcohol in the p ast year? Yes Problems Problem Type SNOMED Code ICD Code Onset Dates Problem Status W/U Status Risk Notes Problem Primary osteoarthritis (705928730) Unilateral primary osteoarthritis, right knee (M17.11) Active confirmed Problem Other intervertebral disc degeneration, lumbar region (M51.36) Active confirmed Problem Pain in wrist (63498046) Pain in right wrist (M25.531) Active confirmed Problem Arthralgia of the pelvic region and thigh (418098339) Pain in right hip (M25.551) Active confirmed Problem Trochanteric bursitis of right hip (049047795275670) Trochanteric bursitis, right hip (M70.61) Active confirmed Problem Closed Colles' fracture (982364475) Colles' fracture of right radius, initial encounter for closed fracture (S52.531A) Active confirmed Plan Of Treatment Pending Test Test Name Order Date Knee, right 3v AP, Lat, [place] 12/25/19 23 Insurance Providers Payer Name Payer Address Payer Phone Subscriber Number Group Number Insured Name Patient Relationship to Insured Coverage Start Date Coverage End Date Medicare [employer] ([employer]) [address] [employer] [place] [phone] [id number] Dagmar Flores Self - patient is the insured [employer] 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
--- OUTSIDE RECORDS SUMMARY | 2024-08-25 12:28 | XMS_ITS | Encounter Summary ---
Author Organization [employer] [facility] Address [address] [place] [address] Care Team Providers Care Ash Collector Name Role Phone Charles Barrett MD Primary Care Provider [phone] Encounter Details Date Type Department Care Team (Late st Contact Info) Description 11/10/2019 Transcribed Document [facility] [place] Family [place] [address] ProviderRaúl MD [address] [place] [id number] Social History Tobacco Use Types Packs/Day Years Used Date Smoking Tobacco: Never Assessed Comments Unknown Sex and Gender Information Value Date Recorded Sex Assigned at Not on file Legal Sex Female 5:06 PM CDT Gender Identity Not on file Sexual Orientation Not on file documented as of this encounter Miscellaneous Notes * Cerner Conversion Note - Raúl Gonzalez MD - 11/10/2019 5:46 PM CDT Patient Education Materials Follows: Transradial Angiogram A transradial angiogram is an imaging test that is used to examine blood vessels. For this test, a long, thin tube (catheter) is inserted into an artery in the wrist (radial artery) and moved into the blood vessels that need to be checked. A dye (contrast dye) is injected into the blood vessels, and then X-rays are taken. The contrast dye makes the blood vessels show up better on X-rays to help your health care provider see any problems. You may have this test to check for problems that can affect blood flow through the blood vessels, such as: ??? A blocked or narrowed blood vessel. ??? A blood clot. ??? Abnormal connections between blood vessels. Tell a health care provider about: ??? Any allergies you have. ??? All medicines you are taking, including vitamins, herbs, eye drops, creams, and txvs-dlu-iuvecug medicines. ??? Any problems you or family members have had with anesthetic medicines. ??? Any blood disorders you have. ??? Any surgeries you have had. ??? Any medical conditions you have or have had. ??? Whether you are or may be . What are the risks? Generally, this is a safe procedure. However, problems may occur, including: ??? Infection. ??? Bleeding. ??? Allergic reactions to medicines or dyes. ??? Damage to other structures or organs, such as the blood vessels, lungs, or heart. ??? Blood clots. ??? Blood flow through the radial artery stopping or slowing down. This is rare. What happens before the procedure? Medicines Ask your health care provider about: ??? Changing or stopping your regular medicines. This is especially important if you are taking diabetes medicines or blood thinners. ??? Taking medicines such as aspirin and ibuprofen. These medicines can thin your blood. Do not take these medicines unless your health care provider tells you to take them. ??? Taking zvhw-yse-kumfmko medicines, vitamins, herbs, and supplements. Exams and tests ??? You may have a physical exam. ??? You may have tests, including blood tests and X-rays. General instructions ??? Follow instructions from your health care provider about eating or drinking restrictions. ??? Do not use any products that contain nicotine or tobacco for at least 24 hours before the procedure. These products include cigarettes, e-cigarettes, and chewing tobacco. If you need help quitting, ask your health care provider. ??? Ask your health care provider: ? How your procedure site will be marked. ? What steps will be taken to help prevent infection. These may include: ? Washing skin with a germ-killing soap. ? Taking antibiotic medicine. ??? Plan to have someone take you home from the hospital or clinic. ??? If you will be going home right after the procedure, plan to have someone with you for 24 hours. What happens during the procedure? An IV will be inserted into one of your veins. ??? You may be given the following: ? A medicine to help you relax (sedative). ? A medicine that is injected into your wrist to numb the area near the radial artery (local anesthetic). ??? A needle will be inserted into your radial artery in your wrist. ??? A catheter will be inserted into your radial artery. The needle will help guide the catheter into your radial artery and will then be removed. ??? The catheter will be moved through your body to the desired area. An X-ray machine (fluoroscope) will help your health care provider place the catheter in the correct place in your body. ??? Contrast dye will be injected into the catheter and will travel to the blood vessels that are being examined. ??? X-ray images will be taken of how the dye flows through your blood vessels. While the images are being taken, you may be given instructions on breathing, swallowing, moving, or talking. ??? The catheter will be removed from your body. ??? A pressure (compression) wrap will be applied to your wrist to stop bleeding. The procedure may vary among health care providers and hospitals. What happens after the procedure? You will need to keep your wrist still for as long as told by your health care provider. ??? The pressure applied to your wrist will be gradually decreased until the compression wrap is removed. ??? Your blood pressure, heart rate, breathing rate, and blood oxygen level will be monitored until you leave the hospital or clinic. ??? You may continue to get fluids and medicines through an IV. ??? You may have soreness and bruising in your wrist. This is normal. This should get better within about 1 week. ??? Do not drive for 24 hours if you were given a sedative during your procedure. ??? You may have to wear compression stockings. These stockings help to prevent blood clots and lessen swelling in your legs. Summary ??? A transradial angiogram is an imaging test that is used to examine blood vessels and to check for problems that can affect blood flow. ??? For this test, a catheter is inserted into an artery in the wrist (radial artery) and moved into the blood vessels being examined. A dye (contrast dye) is injected into the blood vessels, and then X-rays are taken. ??? Before the procedure, follow instructions from your health care provider about changing or stopping your medicines. ??? Before the procedure, follow instructions from your health care provider about eating or drinking restrictions. ??? If you will be going home right after the procedure, plan to have someone take you home and stay with you for 24 hours. This information is not intended to replace advice given to you by your health care provider. Make sure you discuss any questions you have with your health care provider. Document Released: 11/17/2012 Document Revised: 01/17/2019 Document Reviewed: 01/17/2019 [employer] Patient Education ? 2020 [employer]. Radial Site Care This sheet gives you information about how to care for yourself after your procedure. Your health care provider may also give you more specific instructions. If you have problems or questions, contact your health care provider. What can I expect after the procedure? After the procedure, it is common to have: ??? Bruising and tenderness at the catheter insertion area. Follow these instructions at home: Medicines ??? Take mwvm-upt-fnxmjqo and prescription medicines only as told by your health care provider. Insertion site care ??? Follow instructions from your health care provider about how to take care of your insertion site. Make sure you: ? Wash your hands with soap and water before you change your bandage (dressing). If soap and water are not available, use hand wood panel inspector. ? Change your dressing as told by your health care provider. ? Leave stitches (sutures), skin glue, or adhesive strips in place. These skin closures may need to stay in place for 2 weeks or longer. If adhesive strip edges start to loosen and curl up, you may trim the loose edges. Do not remove adhesive strips completely unless your health care provider tells you to do that. ??? Check your insertion site every day for signs of infection. Check for: ? Redness, swelling, or pain. ? Fluid or blood. ? Pus or a bad smell. ? Warmth. ??? Do not take baths, swim, or use a hot tub until your health care provider approves. ??? You may shower 24?48 hours after the procedure, or as directed by your health care provider. ? Remove the dressing and gently wash the site with plain soap and water. ? Pat the area dry with a clean towel. ? Do not rub the site. That could cause bleeding. ??? Do not apply powder or lotion to the site. Activity ??? For 24 hours after the procedure, or as directed by your health care provider: ? Do not flex or bend the affected arm. ? Do not push or pull heavy objects with the affected arm. ? Do not drive yourself home from the hospital or clinic. You may drive 24 hours after the procedure unless your health care provider tells you not to. ? Do not operate machinery or power tools. ??? Do not lift anything that is heavier than 10 lb (4.5 kg), or the limit that you are told, until your health care provider says that it is safe. ??? Ask your health care provider when it is okay to: ? Return to work or school. ? Resume usual physical activities or sports. ? Resume sexual activity. General instructions ??? If the catheter site starts to bleed, raise your arm and put firm pressure on the site. If the bleeding does not stop, get help right away. This is a medical emergency. ??? If you went home on the same day as your procedure, a responsible adult should be with you for the first 24 hours after you arrive home. ??? Keep all follow-up visits as told by your health care provider. This is important. Contact a health care provider if: ??? You have a fever. ??? You have redness, swelling, or yellow drainage around your insertion site. Get help right away if: ??? You have unusual pain at the radial site. ??? The catheter insertion area swells very fast. ??? The insertion area is bleeding, and the bleeding does not stop when you hold steady pressure on the area. ??? Your arm or hand becomes pale, cool, tingly, or numb. These symptoms may represent a serious problem that is an emergency. Do not wait to see if the symptoms will go away. Get medical help right away. Call your local emergency services (911 in the [place] Do not drive yourself to the hospital. Summary ??? After the procedure, it is common to have bruising and tenderness at the site. ??? Follow instructions from your health care provider about how to take care of your radial site wound. Check the wound every day for signs of infection. ??? Do not lift anything that is heavier than 10 lb (4.5 kg), or the limit that you are told, until your health care provider says that it is safe. This information is not intended to replace advice given to you by your health care provider. Make sure you discuss any questions you have with your health care provider. Document Released: 03/28/2011 Document Revised: 03/31/2018 Document Reviewed: 03/31/2018 [employer] Patient Education ? 2020 [employer] Moderate Conscious Sedation, Adult, Care After These instructions provide you with information about caring for yourself after your procedure. Your health care provider may also give you more specific instructions. Your treatment has been planned according to current medical practices, but problems sometimes occur. Call your health care provider if you have any problems or questions after your procedure. What can I expect after the procedure? After your procedure, it is common: ??? To feel sleepy for several hours. ??? To feel clumsy and have poor balance for several hours. ??? To have poor judgment for several hours. ??? To vomit if you eat too soon. Follow these instructions at home: For at least 24 hours after the procedure: ??? Do not: ? Participate in activities where you could fall or become injured. ? Drive. ? Use heavy machinery. ? Drink alcohol. ? Take sleeping pills or medicines that cause drowsiness. ? Make important decisions or sign legal documents. ? Take care of children on your own. ??? Rest. Eating and drinking ??? Follow the diet recommended by your health care provider. ??? If you vomit: ? Drink water, juice, or soup when you can drink without vomiting. ? Make sure you have little or no nausea before eating solid foods. General instructions ??? Have a responsible adult stay with you until you are awake and alert. ??? Take tnjj-rku-vinpfxq and prescription medicines only as told by your health care provider. ??? If you smoke, do not smoke without supervision. ??? Keep all follow-up visits as told by your health care provider. This is important. Contact a health care provider if: ??? You keep feeling nauseous or you keep vomiting. ??? You feel light-headed. ??? You develop a rash. ??? You have a fever. Get help right away if: ??? You have trouble breathing. This information is not intended to replace advice given to you by your health care provider. Make sure you discuss any questions you have with your health care provider. Document Released: 12/14/2013 Document Revised: 02/05/2018 Document Reviewed: 06/14/2016 [employer] Patient Education ? 2020 [employer] documented in this encounter Plan of Treatment Upcoming Encounters Date Type Department Care Team (Late st Contact Info) Description 11/03/2024 3:45 PM EDT Appointment [address] [place] [address] documented as of this encounter Visit Diagnoses Not on filedocumented in this encounter Care Teams Ash Collector Relationship Specialty Start Date End Date Charles Barrett MD [facility] [address] [place] [address] PCP - General Family Medicine 11/19/22 documented as of this encounter
--- OUTSIDE RECORDS SUMMARY | 2024-08-25 12:28 | XMS_ITS | Encounter Summary ---
Author Organization [employer] [facility] Address [address] [place] [address] Care Team Providers Care Tour Guide Name Role Phone Rekha Barrett MD Primary Care Provider [phone] Encounter Details Date Type Department Care Team (Late st Contact Info) Description 11/10/2019 Transcribed Document [facility] Family [facility] [place] [place] [address] ProviderRaúl MD [address] [place] [id number] Social History Tobacco Use Types Packs/Day Years Used Date Smoking Tobacco: Never Assessed Comments Unknown Sex and Gender Information Value Date Recorded Sex Assigned at Not on file Legal Sex Female 5:06 PM CDT Gender Identity Not on file Sexual Orientation Not on file documented as of this encounter Miscellaneous Notes * Cerner Conversion Note - Raúl ProviderMD - 11/10/2019 6:48 PM CDT [facility] [address] IDA FLORES :1950 Visit Time:11/10/2019 Your Visit Summary Your Care Team Admitting Physician - MADHURI RODRIGUEZ MD-IRIS Attending Physician - MADHURI RODRIGUEZ MD-IRIS Primary Care Physician - REKHA BARRETT (REF)MD Referring Physician - MADHURI RODRIGUEZ MD-CAR Your Diagnosis Other forms of angina pectoris, Other forms of angina pectoris Discharge Vitals Heart Rate (Monitored) 68 Respiratory Rate 14 Blood Pressure 119/59 What to do next Instructions From Your Care Team Diet after Discharge: Heart healthy diet, Do not drink any alcoholic beverages, Drink at least 8-10 glasses of water per day Activity after Discharge: Rest and relax today, No strenuous activity for 48 hours Lifting Restrictions: No heavy lifting over 10 pounds for 1 week, no living over 1 pound for 48 hours. Driving after Discharge: Do not drive for 24 hours Showering/Bathing: May shower in 24 hours, No tub bathing, soaking or swimming until site is healed Notify Provider of: Any signs of infection; if observing signs of bleeding or hematoma, apply manual pressure and call 911. Wound/Incision Care after Discharge: May remove dressing in 24 hours, apply bandaid if desired. Dr. Rodriguez stated to restart Coumadin in 2-3 days. Hold statin tonight, restart tomorrow. Follow up with your primary care provider in 2-4 weeks. Follow-Up Appointments Follow Up with MADHURI RODRIGUEZ MD-CAR When Within 2 to 3 days Comments Call for follow up appointment Where: [address] [place] [address] [place] [address]- Medications What How Much When Instructions Next Dose albuterol Inhalation Four Times A Day as needed for as needed for wheezing per nebulizer atorvastatin (Lipitor) 40 Milligram(s) Oral Once a day (at bedtime) biotin 5000 IU Oral At Bedtime calcium carbonate 600 Milligram(s) Oral At Bedtime cholecalciferol (Vitamin D3) 5,000 International Units Oral At Bedtime cyanocobalamin (Vitamin B12) 1 ml. SubCutaneous Every 4 Weeks docusate 100 Milligram(s) Oral Every Day as needed for as needed for constipation dronedarone (Multaq 400 mg oral tablet) 1 Tablet(s) Oral Two Times A Day fluticasone-salmeterol (Advair Diskus 500 mcg-50 mcg inhalation powder) 1 Puff(s) Inhalation Two Times A Day gabapentin (gabapentin 300 mg oral capsule) 2 Capsule(s) Oral At Bedtime levETIRAcetam (levetiracetam) 500 Milligram(s) Oral Two Times A Day metFORMIN (metFORMIN 500 mg oral tablet, extended release) 1 Tablet(s) Oral Every Day montelukast (Singulair) 10 Milligram(s) Oral At Bedtime nitroglycerin 0.4 Milligram(s) SubLINgual Every 5 minutes omeprazole 20 Milligram(s) Oral At Bedtime oxyCODONE (oxyCODONE 5 mg oral tablet) 1 Tablet(s) Oral Every 6 Hours as needed for as needed for pain raloxifene (Evista) 60 Milligram(s) Oral At Bedtime ranolazine (Ranexa 1000 mg oral tablet, extended release) 1 Tablet(s) Oral Two Times A Day tiotropium (Spiriva 18 mcg inhalation capsule) 1 Capsule(s) Inhalation Every Day venlafaxine (Effexor) 37.5 Milligram(s) Oral At Bedtime warfarin 3 Milligram(s) Oral Weekly On Saturdays warfarin (warfarin 2 mg oral tablet) 1 Tablet(s) Oral Thursday, Thursday, Thursday, , Thursday, Thursday zolpidem (Ambien 5 mg oral tablet) 1 Tablet(s) Oral Once a day (at bedtime) as needed for as needed for sleep Take your medications faithfully. Do NOT skip medication. Do NOT stop taking medications without the direction of a physician. Carry a list of your medications with you at all times, and take this medication list with you to your first follow up visit. Report any side effects. Avoid herbal remedies unless discussed with your physician. As part of your treatment plan, your physician may have prescribed a limited course of a controlled substance. This medication may be given to help people with moderate or severe pain or for other medical conditions, but there are risks involved with treatment. Common side effects may include nausea, constipation, drowsiness, sweating, itching, dry mouth, and rash. More serious side effects may include cognitive and motor impairment, like problems with thinking, concentrating, alertness, and movement (e.g. slowed reflexes), and driving and operating heavy machinery can be dangerous. It is important for you to talk to your physician if you have these side effects or questions. These controlled substances can produce physical dependence and be habit-forming if taken for an extended period of time, which means that the body has gotten used to them and may experience withdrawal symptoms if they are abruptly stopped. Withdrawal symptoms can include runny nose, sweating, goose bumps, diarrhea, abdominal cramping, rapid heartbeat, difficulty sleeping, and nervousness. Please dispose of unused and medications per your retail pharmacy guidance. Allergies HYDROmorphone (Hives, C/O: a swelling, [D]Hallucinations) codeine (C/O: itching, C/O: a rash) Immunizations This Visit No Immunizations Found Education Materials Transradial Angiogram A transradial angiogram is an [...] including vitamins, herbs, eye drops, creams, and [id number]-xffdctw medicines. ??? Any problems you or family [...] tells you to take them. ??? Taking ryvd-uqa-zvcfyes medicines, vitamins, herbs, and supplements. Exams and [...] 11/17/2012 Document Revised: 01/17/2019 Document Reviewed: 01/17/2019 [employer] Patient Education ?? 2020 [employer]. Radial Site Care This sheet gives you [...] these instructions at home: Medicines ??? Take mhgr-nmr-ldjoawf and prescription medicines only as told by your health care provider. Insertion site care ??? Follow instructions from your health care provider about how to take care of your insertion site. Make sure you: ? Wash your hands with soap and water before you change your bandage (dressing). If soap and water are not available, use hand director product. ? Change your dressing as told by [...] care provider approves. ??? You may shower 24???48 hours after the procedure, or as directed [...] 03/28/2011 Document Revised: 03/31/2018 Document Reviewed: 03/31/2018 [employer] Patient Education ?? 2020 [employer] Moderate Conscious Sedation, Adult, Care After [...] you are awake and alert. ??? Take tmks-mqp-givcniq and prescription medicines only as told by [...] 12/14/2013 Document Revised: 02/05/2018 Document Reviewed: 06/14/2016 [employer] Patient Education ?? 2020 [employer] Emergency Awareness and Preventative Care STROKE is an EMERGENCY Every Minute Counts Act FAST and Check for these signs: FACE Does the face look uneven? ARM Does one arm drift down? SPEECH Does their speech sound strange? TIME Call at any sign of stroke Stroke Risk Factors Atrial Fibrillation (irregular heartbeat) Diabetes Family history of stroke Heart Disease Heavy alcohol use High Blood Pressure High Cholesterol Physical inactivity and obesity Smoking Cigarette Smoking The facts are clear, cigarette smoking will shorten your life. Smoking can cause many illnesses along the way. As a healthcare provider, we recommend that you stop smoking. Assistance with quitting is available by contacting 6-966-ERYS-NOW. This is a free resource providing counseling, support, and referral. Or you may contact your personal physician. National Suicide Prevention Lifeline: The National Suicide Prevention Lifeline is a national network of local crisis centers that provides free and confidential emotional support to people in suicidal crisis or emotional distress 24 hours a day, 7 days a week. Don't Wait! Stop a Heart Attack Before it Starts What is a heart attack? A heart attack is damage or to a part of the heart from severely decreased or lack of blood flow to the heart. Over time, arteries can become narrow from the buildup of fat and cholesterol, which is called plaque. The plaque can rupture causing a blood clot to form. When the blood clot forms, the artery can become severely narrowed or completely blocked, causing a heart attack. Heart attack is the leading cause of in the [place]. 85% of muscle damage occurs within the first 2 hours. Delay in the recognition of heart attack symptoms increases the chances of . Know the early symptoms of a heart attack: Nausea Feeling of fullness in chest Jaw Pain Pain that travels down one or both arms Fatigue/being tired Anxiety Back Pain Chest pressure, squeezing, or discomfort Shortness of breath Sweating, or a cold sweat Feeling of impending doom There are unusual signs of a heart attack, too! Women, the elderly, and diabetics may present with atypical symptoms: Fainting/dizziness Weakness Confusion Risk Factors for a Heart Attack Some heart disease risk factors, such as age and family history, cannot be changed. Others, like smoking and lack of exercise, can be changed. Smoking High Cholesterol High Blood Pressure Family History Obesity Age Gender (Males are at higher risk) Lack of Exercise Diabetes Diet Stress Excessive Alcohol Intake If you or someone you know is experiencing the signs and symptoms of a heart attack, DON???T DELAY. Call immediately and seek help. If someone collapses, perform CPR! Do not attempt to drive if you are having symptoms of heart attack. Hands-Only CPR Why Hands-Only CPR? Hands-Only CPR has been shown to be as effective as conventional CPR for cardiac arrests that occur outside of a hospital. Survival depends on immediately receiving CPR from someone nearby. How do you perform Hands-Only CPR? There are two easy steps: Call if you see a teen or adult collapse Push hard and fast in the center of the chest at a beat of 100 beats per minute. Save a life! 4 WAYS TO GET AHEAD OF SEPSIS SEPSIS is a MEDICAL EMERGENCY. Time matters! Infections put you and your family at risk for a life-threatening condition called sepsis. Sepsis is the body's extreme response to an infection. It is life-threatening, and without timely treatment, sepsis can rapidly lead to tissue damage, organ failure, and . Sepsis happens when an infection you already have-in your skin, lungs, urinary tract or somewhere else-triggers a chain reaction throughout your body. 1 PREVENT INFECTIONS Take good care of chronic conditions. Talk to your doctor about getting the recommended vaccines. 2 PRACTICE GOOD HYGIENE Wash your hands frequently. Keep cuts or open sores clean and covered until they are healed. 3 KNOW THE SYMPTOMS Confusion or disorientation Shortness of breath High heart rate Fever, shivering, or feeling very cold Extreme pain or discomfort Clammy or sweaty skin 4 ACT FAST Get medical care IMMEDIATELY if you suspect sepsis or if you have an infection that is not getting better or is getting worse. To learn more about sepsis and how to prevent infections, visit www.cdc.gov/sepsis. Test Results Laboratory or Other Results This Visit (last charted value for your 11/10/2019 visit) Hematology 11/10/2019 1:04 PM Hemoglobin POC: 14.3 Gram/dL -- Normal range between ( 12.0 and 17.0 ) Hematocrit POC: 42.0 % -- Normal range between ( 38.0 and 51.0 ) 11/10/2019 12:59 PM Platelet Count: 230 K/uL -- Normal range between ( 163 and 369 ) General Chemistry 11/10/2019 1:04 PM eGFR : 119 mL/min/1.73m2 eGFR NonAfrican: 99 mL/min/1.73m2 Sodium POC: 140 mmol/L -- Normal range between ( 138 and 146 ) Ca Ioniz POC: 1.23 mmol/L -- Normal range between ( 1.12 and 1.32 ) Potassium POC: 4.2 mmol/L -- Normal range between ( 3.5 and 4.9 ) Creatinine POC: 0.6 mg/dL -- Normal range between ( 0.6 and 1.3 ) BUN POC: 13 mg/dL -- Normal range between ( 8 and 26 ) CO2 POC: 28.0 mmol/L -- Normal range between ( 24.0 and 29.0 ) Chloride POC: 102 mmol/L -- Normal range between ( 98 and 109 ) Glucose POC: 93 mg/dL -- Normal range between ( 70 and 105 ) Anion Gap POC: 16.0 mmol/L -- Normal range between ( 10.0 and 20.0 ) Coagulation 11/10/2019 12:59 PM Protime POC: 11.2 Second(s) -- Normal range between ( 9.6 and 14.6 ) INR POC: 0.9 -- Normal range between ( 0.9 and 1.2 ) Patient Name:IDA FLORES I have received and understand this information and was given the opportunity to ask questions. Patient/Home Demonstrator Name: Patient/Home Demonstrator Signature: Relationship to Patient: Clinician/Hospital Home Demonstrator Signature: Date: documented in this encounter Plan of Treatment Upcoming Encounters Date Type Department Care Team (Late st Contact Info) Description 11/03/2024 3:45 PM EDT Appointment [address] [place] [address] documented as of this encounter Visit Diagnoses Not on filedocumented in this encounter Care Teams Tour Guide Relationship Specialty Start Date End Date Rekha Barrett MD [address] [facility] [address] [place] [id number] PCP - General Family Medicine 11/19/22 documented as of this encounter
--- OUTSIDE RECORDS SUMMARY | 2024-08-25 12:28 | XMS_ITS | Patient Health Record ---
Author Organization [facility] Address [address] [place] [address] Care Team Providers Care Fitness Floor Attendant Name Role Phone Fran Hamilton Olegario Primary Care Provider Adi Hayes Unavailable [phone] Faby Bonilla Unavailable [phone] Allergies Allergen (clinical drug ingredient) Drug/Non Drug Allergy documented on EMR Reaction Allergy Type Onset Date Status hydromorphone Dilaudid Unknown Drug Allergy Act lico codeine Codeine Unknown Drug Allergy Active Results Component Value Reference Range Notes Intra-articular injection hi p Left Reviewed date:04/27/2024 11:13:48 AM Interpretation: Performing Lab: Notes/Report: X ray : Hip, left 2 view (Wi lliams Protocol) Reviewed date:04/08/2024 04:11:15 PM Interpretation: Performing Lab: Notes/Report: X ray : Hip, left 2 view (Wi lliams Protocol) (Not yet reviewed by provider) Interpretation: Performing Lab: Notes/Report: Reason For Referral Reason A - LTKA @ [facility] OP Diagnosis 1 Unilateral primary o steoarthritis, left knee (M17.12) Referral Organization [facility] Referring Provider First Name Adi Referring Provider Last Name Daniele Referring Provider Speciality Physician Referred Organization [facility] Referred Provider Adi Sanabria Referred Address [address],[place], [place],[address],[place] Referred Provider Specialty Orthopedic S urgery Procedure 1 TOTAL KNEE ARTHROPLA STY (98019) Procedure 2 CPTR-ASST DIR MS PX (79455) General Notes Farhana Lin 11/2023 11:07:52 AM >A has MCR and sup (do not collect) Patient is scheduled for LTKA. Observation. [facility] [employer] Knee System. Patricio Persona knee system., Farhana Lin 02/15/2024 11:09:32 AM >Medicare/BCBS FED active via web. NO AUTH REQ. DO NOT COLLECT. Referral Priority Routine Reason Physical Therapy as directed for 2 weeks post surgery, START 02/24/24 Diagnosis 1 Unilateral primary o steoarthritis, left knee (M17.12) Referral Organization [facility] Referring Provider First Name Faby Referring Provider Last Name Chad Referring Provider Speciality Nurse Hong keith Referred Provider [facility] Referred Provider Specialty Miscellaneou s Referral Priority Routine Reason Start Outpatient LE physical therapy, ROM and anti-inflammatory modalities, 2-3 times per week, for 4-6 weeks, START on 03/09/24 Diagnosis 1 Unilateral primary o steoarthritis, left knee (M17.12) Referral Organization [facility] Referring Provider First Name Faby Referring Provider Last Name Chad Referring Provider Speciality Nurse Hong keith Referred Provider [facility] Referred Provider Specialty Physical Med icine and Rehabilitation General Notes Divina Quintana 09:47:50 AM >Called LVM to schedule OP PT evaluation., Divina Quintana 02/15/2024 01:16:32 PM >Pt called back, LVM that she wants to goto PT closer to home @ [facility]. Referral Priority Routine Reason Continue Outpatient LE physical therapy, ROM and anti-inflammatory modalities, 2-3 times per week, for 4-6 weeks Diagnosis 1 Unilateral primary o steoarthritis, left knee (M17.12) Referral Organization [facility] Referring Provider First Name Faby Referring Provider Last Name Chad Referring Provider Speciality Nurse Hong keith Referred Provider [facility] Referred Provider Specialty Physical Med icine and Rehabilitation General Notes Kathi Bolton 2024 08:52:02 AM >referral faxed Referral Priority Routine Reason Patient is scheduled for a LTHA on 06/09/24. Patricio Ashley. Observation. [facility] [place] Diagnosis 1 Unilateral primary o steoarthritis, left hip (M16.12) Referral Organization [facility] Referring Provider First Name Faby Referring Provider Last Name Chad Referring Provider Speciality Nurse Hong keith Referred Organization [facility] Referred Provider Adi Sanabria Referred Address [address],[address], Referred Provider Specialty Orthopedic S urgery Procedure 1 TOTAL HIP ARTHROPLAS TY (18665) General Notes Kathi Bolton 2024 10:24:35 AM >Member Status: Active Coverage, Relationship to Subscriber, Self, Other or Additional Payer Information, Payer: [employer] Referral Priority Routine Referral Appointment Date 06/09/2024 Reason Start Outpatient LE physical therapy, ROM and anti-inflammatory modalities, 2-3 times per week, for 4-6 weeks, START on 06/23/24 Diagnosis 1 Unilateral primary o steoarthritis, left hip (M16.12) Referral Organization [facility] Referring Provider First Name Faby Referring Provider Last Name Chad Referring Provider Speciality Nurse Hong keith Referred Provider [facility] Referred Provider Specialty Physical Med icine and Rehabilitation Referral Priority Routine Referral Appointment Date 06/03/2024 Reason Start Home Health [facility] Nursing as directed for 2 weeks post surgery, START 06/08/24 Physical Therapy as directed for 2 weeks post surgery, START 06/08/24 Diagnosis 1 Unilateral primary o steoarthritis, left hip (M16.12) Referral Organization [facility] Referring Provider First Name Faby Referring Provider Last Name Chad Referring Provider Speciality Nurse Hong keith Referred Provider [facility] Referred Provider Specialty Miscellaneou s General Notes Kathi Bolton 2024 11:13:34 AM >faxed Referral Priority Routine Referral Appointment Date 06/10/2024 Medications Medication SIG (Take, Route, Frequency, Duration) Notes Start Date End Date Status Omeprazole 40 MG 1 capsule 1/2 to 1 h our before morning meal Orally Once a day Active Atorvastatin Calcium 40 MG 1 tablet Oral ly Once a day Active Albuterol Active Montelukast Sodium 10 MG 1 tablet Orally Once a day Active Eliquis 5 MG as directed Orally Active Venlafaxine HCl 37.5 MG 1 tablet with fo od Orally Once a day Active ALPRAZolam 0.25 MG TAKE 1 TABLET TWICE A DAY NEEDED FOR 10 DAYS Oral for 10 Days Active Midodrine HCl 5 MG 1 tablet Orally Twic e a day Active Amoxicillin 500 MG 4 capsules Orally 1 hour prior to dental appt 05/23/2024 Active Trelegy Ellipta 100-62.5-25 MCG/ACT 1 puff Inhalation Once a day Active Raloxifene HCl 60 MG 1 tablet Orally Onc e a day Active Ondansetron HCl 4 MG 1 tablet Orally every 6 hours As needed for nausea 06/24/2024 Active Keppra 500 MG 1 tablet Orally ever y 12 hrs Active Problems Problem Type SNOMED Code ICD Code Onset Dates Problem Status W/U Status Risk Notes Problem Localized, primary osteoarthritis of the pelvic region and thigh (312270521) Unilateral primary osteoarthritis , left hip (M16.12) Active confirmed Problem Osteoarthritis of knee (127452774) Unilateral primary osteoarthritis , left knee (M17.12) Active confirmed Vital Signs Heart Rate 70 /min 04/22/2024 Height-cm 154.94 cm 07/15/2024 Blood pressure diastolic 62 mm Hg 04/22/2024 Weight-kg 61.69 kg 07/15/2024 Height 61 in 07/15/2024 Blood pressure systolic 98 mm Hg 04/22/2024 Weight 136 lbs 07/15/2024 BMI 25.69 kg/m2 07/15/2024 Encounters Encounter Location Date Provider Diagnosis [facility] [address] [address] 01/18/2024 Adi Sanabria Pain in left knee M25.562 and Unilateral primary osteoarthritis, left knee M17.12 [facility] [address] [address] 02/17/2024 Faby Freedom Unilateral primary osteoarthritis, left knee M17.12 and Pain in left knee M25.562 [facility] [address] [place] [address] 02/23/2024 Faby Freedom Unilateral primary osteoarthritis, left knee M17.12 [facility] [address] [place] [address] 02/23/2024 Adi Sanabria Unilateral primary osteoarthritis, left knee M17.12 [facility] [place] [address] [address] 03/11/2024 Faby Chad Unilateral primary osteoarthritis, left knee M17.12 and Pain in left knee M25.562 [facility] [place] [address] [address] 04/11/2024 Faby Chad Unilateral primary osteoarthritis, left knee M17.12 and Pain in left knee M25.562 [facility] [place] [address] [address] 04/22/2024 Adi Sanabria Unilateral primary osteoarthritis, left hip M16.12 and Pain in left hip M25.552 [facility] [place] [address] [address] 05/23/2024 Faby Freedom Unilateral primary osteoarthritis, left knee M17.12 ; Pain in left knee M25.562 and Unilateral primary osteoarthritis, left hip M16.12 [facility] [place] [address] [address] 06/03/2024 Faby Chad Unilateral primary osteoarthritis, left hip M16.12 and Pain in left hip M25.552 [facility] [address] [place] [address] 06/07/2024 Faby Freedom Unilateral primary osteoarthritis, left hip M16.12 [facility] [address] [place] [address] 06/07/2024 Adi Sanabria Unilateral primary osteoarthritis, left hip M16.12 [facility] [place] [address] [address] 06/24/2024 Faby Freedom Unilateral primary osteoarthritis, left hip M16.12 and Pain in left hip M25.552 [facility] [place] [address] [address] 07/15/2024 Faby Chad Unilateral primary osteoarthritis, left hip M16.12 and Pain in left hip M25.552 [facility] [address] [address] 11/20/2023 Adi [place] [facility] [place] [place] [address] [address] 02/29/2024 Adi Sanabria [facility] [place] [address] [address] 04/08/2024 Adi Sanabria [facility] [place] [address] [address] 2024 Adi Sanabria Assessments Encounter Date Diagnosis (ICD Code) Assessment Notes Treatment Notes Treatment Clinical Notes Section Notes 02/23/2024 Unilateral primary osteoarthritis, left knee (ICD-10 - M17.12) 02/23/2024 Unilateral primary osteoarthritis, left knee (ICD-10 - M17.12) 03/11/2024 Unilateral primary osteoarthritis, left knee (ICD-10 - M17.12) Continue DVT prophylaxis for 2 more weeks Discontinue IRASEMA hose Begin outpatient Physical Therapy Progress from walker to cane per PT recommendation Increase range of motion exercises as well as strengthening for the lower extremity with quad sets. Continue pain meds as needed. Especially prior to PT May Shower. No pool/hot tub/bath tub for 4 more weeks Use topical pain creams around the incision Continue to ice 3-4 x per day. Elevate as needed for swelling. Left side surgery may drive now, as long as not taking pain med before driving. 01/18/2024 Pain in left knee (ICD-10 - M25.562) 02/17/2024 Unilateral primary osteoarthritis, left knee (ICD-10 - M17.12) Patient will require assistance ambulating using an assistive device. Upon using this device the patient will need proper training after being discharged to their home from hospital post operatively. The patient will also require functional training using steps and chairs to which the patient will be a high fall risk. Anti-coagulation monitoring and surgical wound will need attentive care. The patients activity will be reduced post operatively due to weight bearing status and possibility of not being able to ambulate or navigate stairs. Patient will be restricted to homebound status. [facility] will be directed to assist the patient post operatively in their home startin02/24/2024 Patient will start outpatient physical therapy at [facility] on 03/09/2024 No history of DVT or PE. No history of reactions to anesthesia. Eforcse report reviewed. Acute pain exception: 7 days of pain medication written for postoperative pain. Patient understands that they have osteoarthritis of the knee. Their treatment options include home conservative modalities such as: rest, ice/heat, elevation, analgesics, and home exercises. They have also tried injection therapy with either anti-inflammatory steroid or hyaluronic acid derivtive. The patient has failed three of the above listed conservative measures for over three months and understands they are a candidate for surgical intervention in the form of a Total Knee Arthroplasty. The patient has decided upon a Left TKA. 04/11/2024 Unilateral primary osteoarthritis, left knee (ICD-10 - M17.12) Progress to activities as tolerated Return to pool, hot tub, bath tub Return to golf May apply lotions/creams directly on incision. Vitamin E oil will help lighten the incision. May drive Ice as needed for swelling. Swelling and stiffness take 6-8 months to resolve. Do not kneel on the incision. No dental work for 6 more weeks 04/22/2024 Unilateral primary osteoarthritis, left hip (ICD-10 - M16.12) Patient has advanced DJD of the left hip. She defers surgery at time. We will order a IA injection, 05/23/2024 Unilateral primary osteoarthritis, left knee (ICD-10 - M17.12) Activities as tolerated Cleared for dental work with antibiotic prior Swelling and stiffness are normal for 6-8 months after surgery Warmth in the knee is normal for 3-4 months after surgery 06/07/2024 Unilateral primary osteoarthritis, left hip (ICD-10 - M16.12) 06/07/2024 Unilateral primary osteoarthritis, left hip (ICD-10 - M16.12) 06/24/2024 Unilateral primary osteoarthritis, left hip (ICD-10 - M16.12) Continue DVT prophylaxis for 2 more weeks Continue strict hip precautions for 4 more weeks (No bending over 90 degrees, no twisting, no crossing legs) Discontinue IRASEMA hose Begin outpatient Physical Therapy for lower extremity strengthening and ambulation training Progress from walker to cane per PT recommendation Continue pain meds as needed. Especially prior to PT May Shower. No pool/hot tub/bath tub for 4 more weeks Use topical pain creams around the incision Continue to ice 3-4 x per day. Elevate as needed for swelling. May drive as long as not taking pain meds before driving 06/03/2024 Unilateral primary osteoarthritis, left hip (ICD-10 - M16.12) Patient will require assistance ambulating using an assistive device. Upon using this device the patient will need proper training after being discharged to their home from hospital post operatively. The patient will also require functional training using steps and chairs to which the patient will be a high fall risk. Anti-coagulation monitoring and surgical wound will need attentive care. The patients activity will be reduced post operatively due to weight bearing status and possibility of not being able to ambulate or navigate stairs. Patient will be restricted to homebound status. [facility] will be directed to assist the patient post operatively in their home startin06/08/24 Patient will start outpatient physical therapy at [facility] on 06/23/24 No history of DVT or PE. No history of reactions to anesthesia. Eforcse report reviewed. Acute pain exception: 7 days of pain medication written for postoperative pain. Patient understands that they have osteoarthritis of the hip. Their treatment options include home conservative modalities such as: rest, ice/heat, elevation, analgesics, and home exercises. They have also tried injection therapy with anti-inflammatory steroid. The patient has failed three of the above listed conservative measures for over three months and understands they are a candidate for surgical intervention in the form of a Total Hip Arthroplasty. The patient has decided upon a Left TOOTIE. 07/15/2024 Unilateral primary osteoarthritis, left hip (ICD-10 [...] Pain in left hip (ICD-10 - M25.552) 06/03/2024 Pain in left hip (ICD-10 - M25.552) 01/18/2024 Unilateral primary osteoarthritis, left knee (ICD-10 - M17.12) Patient has a history of DJD of the left knee. The patients activities of daily living have been severely limited, secondary to pain and stiffness. Patient has failed all conservative treatment including NSAIDs, activity modification, injections, and weight reduction. After discussing extensively, the risks and benefits of surgery, including the possible need for revision, the patient expressed their wishes to proceed with left total knee replacement surgery. 06/24/2024 Pain in left hip (ICD-10 - M25.552) 05/23/2024 Pain in left knee (ICD-10 - M25.562) 04/22/2024 Pain in left hip (ICD-10 - M25.552) 04/11/2024 Pain in left knee (ICD-10 - M25.562) 02/17/2024 Pain in left knee (ICD-10 - M25.562) 03/11/2024 Pain in left knee (ICD-10 - M25.562) 05/23/2024 Unilateral primary osteoarthritis, left hip (ICD-10 - M16.12) Patient has a history of DJD of the hip. The patients activities of daily living have been severely limited, secondary to pain and stiffness. Patient has failed all conservative treatment including NSAIDs, activity modification, injections, and weight reduction. After discussing extensively, the risks and benefits of surgery, including the possible need for revision, the patient expressed their wishes to proceed with surgery. Plan Of Treatment Pending Test Test Name Order Date X ray : Hip, left 2 view ([facility]) 06/24/2024 X ray : Hip, left 2 view ([facility]) 06/03/2024 X ray : Hip, left 2 view ([facility]) 06/13/2024 X ray: knee, left 3 view (AP, Lat, Sunri se) 04/06/2024 X ray: knee, left 3 view (AP, Lat, Sunri se) 01/18/2024 X ray: knee, left 3 view (AP, Lat, Sunri se) 03/11/2024 Next Appt Details Provider Name:Faby Bonilla, 01/18/2025 10:00:00 AM, [address], [address], Insurance Providers Payer Name Payer Address Payer Phone Subscriber Number Group Number Insured Name Patient Relationship to Insured Coverage Start Date Coverage End Date [employer] [place] [employer] [address] [address] [place] [address] [id number] Dagmar Flores Self - patient is the insured [facility] Federal [address] [place] [address] [phone] [id number] Dagmar Flores Self - patient is the insured Medical (General) History Medical History History ICD Code Seizures a-fib GERD HPLD migraines asthma hypotension Surgical History Surgery Date(Month/Year) RTKA (Daniele) 2022 RTK Revision ([facility]iele) 2023 gastric bypass 2010 pacemaker 2022 LTKA VIVIAN ([facility]iele) 02/23/24 LTHA ([facility]) 06/07/24 Hospitalization History Reason Date(Month/Year) syncope/low hemoglobin, potassium, and m agnesium 06/23/24 see surgery history
--- OUTSIDE RECORDS SUMMARY | 2024-08-25 12:28 | XMS_ITS | Encounter Summary ---
Author Organization [facility] Address [address] [place] [address] Care Team Providers Care Sulfonator Operator Name Role Phone Charles Barrett MD Primary Care Provider +1- [phone] Encounter Details Date Type Department Care Team (Late st Contact Info) Description 11/10/2019 Transcribed Document [facility] [address] ProviderRaúl MD [address] [place] [address] [id number] Social History Tobacco Use Types Packs/Day Years Used Date Smoking Tobacco: Never Assessed Comments Unknown Sex and Gender Information Value Date Recorded Sex Assigned at Not on file Legal Sex Female 5:06 PM CDT Gender Identity Not on file Sexual Orientation Not on file documented as of this encounter Miscellaneous Notes * Cerner Conversion Note - Historical ProviderMD - 11/10/2019 1:30 PM CDT Pre Procedure Adult Entered On: 11/10/2019 13:43 EDT Performed On: 11/10/2019 13:30 EDT by Monica Stubbs RN Height and Weight, Clinical Dosing Height Source : Stated Height Entry Format : [place] Height, Feet : 5 ft(Converted to: 152 cm, 60 Inch) Height, Inches : 0 Inch(Converted to: 0 ft 0 Inch, 0.00 cm) Clinical Height : 152.4 cm Weight Source : Standing scale Weight Entry Format : [place] Clinical Dosing Weight : 59.55 kg Weight, Pounds : 131 lb Body Surface Area (BSA) : 1.56 m2 Body Mass Index : 25.6 kg/m2 (HI) [place] Body Weight : 45 kg Monica Stubbs RN - 11/10/2019 13:30 EDT Health Histories Smoking Status : Never (less than 100 in lifetime; none in last 30 days) Smokeless Tobacco Status : Never Enoc BRITTNEE Anderson - 11/10/2019 13:30 EDT Social History (As Of: 11/10/2019 13:43:17 EDT) Tobacco: Smoking Status Never smoker. (Last Updated: 12/02/2012 14:19:40 EDT by SANDRA HAGEN, RN) None Smoking Frequency Within Last 30 Days. Use in Last 12 Months: No. Used Tobacco, but Quit No. Second Hand Smoke Exposure: No. No Smokeless Tobacco Use in Last 30 Days. None Smokeless Tobacco Use History. (Last Updated: 08/15/2015 13:40:33 EDT by KEEGAN SURESH RN) Alcohol: Alcohol Use History Yes. Alcohol Use Frequency Socially. Alcohol Use Comment occassional wine. (Last Updated: 07/10/2017 08:24:13 EDT by FAY MIRANDA, RN) Substance Abuse: Drug Use Hx: No. (Last Updated: 10/28/2012 14:41:18 EDT by ALICIA SOSA, BRITTNEE) Nutrition/Health: Diabetic, Caffeine intake amount: diet soda 12 oz per day, occassional tea. (Last Updated: 07/10/2017 08:24:46 EDT by FAY MIRANDA, RN) Home/Environment: Lives with Spouse, [id number]. Home equipment: Glucose monitoring, INR machine. Alcohol abuse in household: No. Substance abuse in household: No. Smoker in household: No. Injuries/Abuse/Neglect in household: No. Feels unsafe at home: No. Family/Friends available for support: Yes. 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 (Last Updated: 07/10/2017 08:25:42 EDT by FAY MIRANDA, RN) Infectious Disease History Has the patient ever been tested for COVID-19? : Yes, Patient stated results Negative Date of COVID-19 test known? : Yes Does patient have symptoms of COVID-19? : No COVID19 Screening : No Experiencing Infectious Disease Symptoms : No symptoms Physical contact outside US in the last 30 days : No Infectious Disease History : Chicken pox/Shingles, Influenza, Measles, Mumps, Rubella Tuberculosis Symptoms : None Monica Stubbs RN - 11/10/2019 13:30 EDT COVID19 PreProcedure Screening Is this an Emergent or Add on Procedure? : No Has patient been isolated since the test : Yes Exposed to COVID19 symptoms since test? : No Monica Stubbs RN - 11/10/2019 13:30 EDT Anesthesia/Transfusion History Family History of Anesthesia Reaction : Prior transfusion without reaction Transfusion History : Prior anesthesia without reaction Family History of Anesthesia Reaction : None Monica Stubbs RN - 11/10/2019 13:30 EDT Functional Assessment Living Situation : Home Patient Lives With : Spouse Current Home Treatments : Blood glucose monitoring, CPAP Home Equipment : Cane Monica Stubbs RN - 11/10/2019 13:30 EDT [place] Suicide Severity Rating Scale (C-SSRS) CSSRS Past Month Wish to be : No CSSRS Past Month Suicidal Thoughts : No CSSRS Lifetime Suicide Behavior : No Suicide Severity Rating Score : 0 Suicide Severity Rating : No Additional Care Required at this time Monica Stubbs RN - 11/10/2019 13:30 EDT Psychosocial History Chronic/Terminal Illness w/Freq Visits : Yes Do You Have a History of the Following? : Patient denies history Currently in Unsafe Situation : No Monica Stubbs RN - 11/10/2019 13:30 EDT Advance Directive Patient has Advance Directive *Q : Yes, Advance Directive not with the patient Advance Directive Type : Living will, Medical durable power of attorney law clerk (proxy) Medical Durable Power of Machine Fixer Name : Bill Sandra Copy Advance Directive Verified/on Chart : No Monica Stubbs RN - 11/10/2019 13:30 EDT Teaching/Learning Assessment Individuals Taught : Patient, Spouse Readiness to Learn : Cooperative Readiness to Learn : Explanation, Printed materials Learning Style Preferences Patient : Printed materials, Verbal explanation Learning Style Preferences Family : Printed materials, Verbal explanation Monica Stubbs RN - 11/10/2019 13:30 EDT Education Topics, Periop Preadmission Perioperative Education [place] : Verbalizes understanding Infection Control : Verbalizes understanding IV's : Verbalizes understanding NPO Status/Directions : Verbalizes understanding Postoperative Care Preparations : Verbalizes understanding Preprocedure Preparations : Verbalizes understanding Preprocedure Tests/Labs : Verbalizes understanding Responsible Adult : Verbalizes understanding Take/Hold Medications Pre-Procedure : Verbalizes understanding Monica Stubbs RN - 11/10/2019 13:30 EDT General Info Showplace Manager Needed : No Monica Stubbs RN - 11/10/2019 21:00 EDT Preferred Name : Leilani Arrived From : Home Mode of Arrival on Unit : Ambulatory Legal Guardian : Spouse Support Person/Patient Research Worker Encyclopedia : Yes Support Person/Pt Rep Name : Norberto (spouse) Support Person/Pt Rep Contact Information : [phone] Want Family/Rep/Phys Notified of Admit : No Emergency Contact #1 : Norberto Sandra Emergency Contact #1 Emergency Contact #1 Relationship : Emergency Contact #2 : na Emergency Contact #2 Phone Number : ramos Emergency Contact #2 Relationship : na Primary Language : Citizen Of [place] Preferred Communication Mode : Verbal Communication Barrier : None Monica Stubbs RN - 11/10/2019 13:30 EDT Sleep Apnea Risk Assmt BiPAP/CPAP Ordered for Home Use : Yes Hx of Obstructive Sleep Apnea Diagnosis : Yes BiPAP/CPAP Used at Home : No Reason BiPAP/CPAP Not Used at Home : Pt lost weight Age over 50 Years Old : Yes Gender Male : No Monica Stubbs RN - 11/10/2019 13:30 EDT Steven Scale Steven Sensory Perception : Slightly limited Steven Moisture : Rarely moist Steven Activity : Walks occasionally Steven Mobility : Slightly limited Steven Nutrition : Adequate Steven Friction and Shear : No apparent problem Steven Score : 19 Monica Stubbs RN - 11/10/2019 13:30 EDT Fall Risk Scales ABCs Fall Injury Risk Identification : None AUGUSTE Hx Falls Immediate/Within 3 Months : Yes Auguste Secondary Diagnosis : No AUGUSTE Use of Ambulatory Aid : None AUGUSTE IV Therapy or IV Access : Yes Auguste Gait/Transferring : Normal, bedrest, immobile Auguste Mental Status : Oriented to own ability Auguste Fall Risk Score : 45 AUGUSTE Fall Scale Risk Level : 25-45 Medium Risk [place] Fall Interventions : Adequate lighting, Assistive devices within reach, Bed in low position, Call device within reach, Fall prevention handout/education per facility policy, Frequent orientation to call device, Frequent orientation to surroundings, Hourly comfort/safety rounds, Personal items within reach, Reinforced to call for assistance before getting out of bed, Room free of clutter/spills, Upper side-rails up, Wheels locked Monica Stubbs RN - 11/10/2019 13:30 EDT Valuables and Belongings Valuables and Belongings : Clothing, Personal items Clothing : Common streetwear Clothing Disposition : With family, Declines to send to security/safe Personal Items : Cell phone Personal Items Disposition : With family, Declines to send to security/safe Monica Stubbs RN - 11/10/2019 13:30 EDT Electronically signed by Francisco [facility] Conversion Habilitation Training Specialist Cerner at 06/23/2022 11:10 AM CDT documented in this encounter Plan of Treatment Upcoming Encounters Date Type Department Care Team (Late st Contact Info) Description 11/03/2024 3:45 PM EDT Appointment [address] [place] [address] documented as of this encounter Visit Diagnoses Not on filedocumented in this encounter Care Teams Sulfonator Operator Relationship Specialty Start Date End Date Charles Barrett MD [address] [facility] [address] [place] [address] PCP - General Family Medicine 11/19/22 documented as of this encounter
--- OUTSIDE RECORDS SUMMARY | 2024-08-25 12:28 | XMS_ITS | Patient Health Record ---
Author Organization [facility] Address [address] [place] [address] Care Team Providers Care Design Drafter Chief Name Role Phone Fran Hamilton M.D. Primary Care Provider Unavailab VIKI Whitman Unavailable [phone] [facility] Unavailable [phone] Allergies Allergen (clinical drug ingredient) Drug/Non Drug Allergy documented on EMR Reaction Allergy Type Onset Date Status hydromorphone Daludid (uncoded) Unknown Allergy Active Codeine Phosphate Unknown Drug Allergy Active Results Component Value Reference Range Notes Atria - ECG Reviewed date:01/21/2024 05:20:05 PM Interpretation: Performing Lab: Notes/Report: [facility] Reviewed date:01/21/2024 10:26:42 PM Interpretation: Performing Lab: Notes/Report: Reason For Referral No Information Medications Medication SIG (Take, Route, Frequency, Duration) Notes Start Date End Date Status Nitroglycerin 0.4 MG Tablet Sublingual as directed Sublingual q 5 min x 3; Duration: 90 days Active Trelegy Ellipta 200-62.5-25 MCG/ACT Aerosol Powder Breath Activated 1 puff Inhalation Once a day Active Midodrine HCl 5 MG Tablet 1 tablet Orall y Twice daily Active Vitamin B12 1000 MCG Tablet Extended Release 1 tablet Orally once a month Active Lipitor 40 MG Tablet 1 tablet Orally Onc e a day; Duration: 90 days Active Vitamin B1 100 MG Tablet 1 tablet Orally Once a day Active Singulair 10 MG Tablet 1 tablet in the evening Orally Once a day Active Effexor XR 37.5 MG Capsule Extended Release 24 Hour 1 capsule with food Orally Once a day Active Keppra 500 MG Tablet 1 Tablet Orally Twi ce daily Active Omeprazole 40 MG Capsule Delayed Release 1 capsule Orally Once a day Active Ranolazine ER 500 MG Tablet Extended Release 12 Hour 1 tablet Orally Twice a day Active Metoprolol Tartrate 25 MG Tablet 1 tablet with food Orally Twice a day Active Evista 60 MG Tablet 1 tablet Orally Once a day Active Vitamin D 2000 UNIT Tablet 1 tablet Orally Once a day 5000 Units Active Eliquis 5 MG Tablet 1 tablet Orally twic e a day Active Albuterol Sulfate HFA 108 (90 Base) MCG/ACT Aerosol Solution 2 puffs as needed Inhalation every 4 hrs Active Gabapentin 300 MG Capsule 1 capsule am & 3 capsules bedtime Orally Once a day Active Social History Tobacco Use: Social History Observation Description Date Details (start date - stop date) Never Smoker NA - NA Social History Drugs/Alcohol: Social Info Question Answer Notes Alcohol Screen (Audit-C) Did you have a drink containing alcohol in the past year? Yes How often did you have a drink containing alcohol in the past year? Monthly or less (1 point) How many drinks did you have on a typical day when you were drinking in the past year? 1 or 2 drinks (0 point) How often did you have 6 or more drinks on one occasion in the past year? Never (0 point) Points 1 Interpretation Negative Alcohol use: Do you consume Alcohol? Yes Frequency: Rarely Caffeine Intake: 2-3 cups per day Tobacco Use: Social Info Question Answer Notes Tobacco Use/Smoking Are you a nonsmoker Tobacco use other than smoking: Are you an other tobacco user? No Additional Details Category Social Info Options Details Drugs/Alcohol: Do you drink alcohol? No Problems Problem Type SNOMED Code ICD Code Onset Dates Problem Status W/U Status Risk Notes Problem Orthostatic hypotension (25442953) Orthostatic hypotension (I95.1) Active confirmed Problem Palpitations (58732860) Palpitations (R00.2) Active confirmed Problem Hypertension (57513432) Hypertension (I10) Active confirmed Problem Cardiomyopathy (88509032) Cardiomyopathy (I42.9) Active confirmed Problem Aortic valve disorder (6811572) Nonrheumatic aortic valve insufficiency (I35.1) Active confirmed Problem Left ventricular diastolic dysfunction (208924590) Left ventricular diastolic dysfunction (I51.9) Active confirmed Problem Sinus node dysfunction (50504133) SSS (sick sinus syndrome) (I49.5) Active confirmed Problem Cardiac pacemaker in situ (393012009) Artificial pacemaker (Z95.0) Active confirmed Problem Old myocardial infarction (2747966) Myocardial infarction greater than 8 weeks ago (I25.2) Active confirmed Problem Bilateral atherosclerosis of arteries of lower limbs (disorder) (95087447335927482 ) Atherosclerosis of artery of both lower extremities (I70.203) Active confirmed Problem Hyperlipidemia (57186758) Hyperlipidemia (E78.5) Active confirmed Problem Coronary artery disease (11879338) Coronary artery disease (I25.10) Active confirmed Problem Atrial fibrillation (85656476) PAF (paroxysmal atrial fibrillation) (I48.0) Active confirmed Problem Cardiomegaly (1386991) Atrial enlargement, left (I51.7) Active confirmed Problem Non-rheumatic mitral regurgitation (985713978) Nonrheumatic mitral valve regurgitation (I34.0) Active confirmed Problem Overweight (321041615) Overweight (BMI 25.0-29.9) (E66.3) Active confirmed Problem Tricuspid valve regurgitation, nonrheumatic (413266440) Tricuspid valve regurgitation, nonrheumatic (I36.1) Active confirmed Problem Aortic valve disorder (8544295) 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) Active confirmed Problem Cardiac syndrome X (finding) (280844171) 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) Active confirmed Vital Signs Heart Rate 77 /min 06/30/2024 Oximetry 99 % 06/30/2024 Blood pressure diastolic 60 mm Hg 06/30/2024 Height 61 in 06/30/2024 Blood pressure systolic 110 mm Hg 06/30/2024 Weight 139 lbs 06/30/2024 BMI 26.26 kg/m2 06/30/2024 Encounters Encounter Location Date Provider Diagnosis [facility] [address] [address] 01/21/2024 VIKI MCPHERSON Coronary artery disease I25.10 ; Cardiac microvascular disease I25.85 ; Recurrent syncope R55 ; PAF (paroxysmal atrial fibrillation) I48.0 ; Orthostatic hypotension I95.1 ; SSS (sick sinus syndrome) I49.5 ; Hyperlipidemia E78.5 ; Aortic sclerosis I70.0 ; Mild tricuspid regurgitation I07.1 ; Overweight (BMI 25.0-29.9) E66.3 ; Nonrheumatic aortic valve insufficiency I35.1 ; Nonrheumatic mitral valve regurgitation I34.0 and Atherosclerosis of artery of both lower extremities I70.203 [facility] [address] [place] [address] 06/30/2024 Coco Dias Coronary artery dise ase [...] nonrheumatic I36.1 and Nonrheumatic aortic sclerosis I35.8 [facility] [address] [place] [address] 12/31/2023 VIKI ARCENIO [facility] [address] [place] [address] 01/18/2024 VIKI RG MCPHERSON [facility] [address] [place] [address] 01/18/2024 VIKIHERON RG [facility] [address] [place] [address] 02/18/2024 VIKI MCPHERSON Assessments Encounter Date Diagnosis (ICD Code) Assessment Notes Treatment Notes Treatment Clinical Notes Section Notes 01/21/2024 Coronary artery disease (ICD-10 - I25.10) Coronary [...] and statin, she is tolerating therapy well 01/21/2024 Cardiac microvascular disease (ICD-10 - I25.85) Good reponse to antianginal therapy. Cont same regimen 06/30/2024 Coronary artery disease (ICD-10 - I25.10) [...] and statin, she is tolerating therapy well 01/21/2024 Recurrent syncope (ICD-10 - R55) Resolved after PPM 06/30/2024 Recurrent syncope (ICD-10 - R55) Resolved after PPM 06/30/2024 Cardiac microvascular disease (ICD-10 - I25.85) Good reponse to antianginal therapy. Cont same regimen 06/30/2024 PAF (paroxysmal atrial fibrillation) (ICD-10 - I48.0) [id number] Vasc Score of 4. On AC Eliquis. Following with EP in [place] who recommended to hold Multaq and monitor on PPM Afib burden Mg++ 2.2 (06/20/2024) 01/21/2024 PAF (paroxysmal atrial fibrillation) (ICD-10 - I48.0) [id number] Vasc Score of 4. On AC Eliquis. Following with EP in [place] who recommended to hold Multaq and monitor on PPM Afib burden 06/30/2024 Orthostatic hypotension (ICD-10 - I95.1) Patient is responding well to medical therapy. Patient advised to stay well hydrated (0.5 oz per lb of body weight), wear compression stockings and liberalize sodium intake (06/23/2024) BUN 8 Creat 0.63 eGFR 92 Na+ 142 K+ 3.9 01/21/2024 Orthostatic hypotension (ICD-10 - I95.1) Patient is responding well to medical therapy. Patient advised to stay well hydrated (0.5 oz per lb of body weight), wear compression stockings and liberalize sodium intake 01/21/2024 SSS (sick sinus syndrome) (ICD-10 - I49.5) S/P Pacemaker Implantation w/[employer] [facility]. Gen change 11/2022. This is monitored by EP in [place] 06/30/2024 SSS (sick sinus syndrome) (ICD-10 - I49.5) S/P Pacemaker Implantation w/[facility] [facility]. Gen change 11/2022. This is monitored by EP in [place] 01/21/2024 Hyperlipidemia (ICD-10 - E78.5) Continue Statin therapy. No recent lipid panel available for review 06/30/2024 Hyperlipidemia (ICD-10 - E78.5) Continue Statin therapy. No recent lipid panel available for review 01/21/2024 Aortic sclerosis (ICD-10 - I70.0) 06/30/2024 Overweight (BMI 25.0-29.9) (ICD-10 - E66.3) Discussed Lifestyle Modifications on today's encounter. I recommend exercising 30 mins per session, 5 x per week. I recommend dietary restrictions, eat more lean protein, fruits and vegetables, and plant based oils (olive oil). Avoid canned fruits, vegetables, and soup, no red meat or cheese. Limit Sodium 2 grams daily. Avoid refined sugar 01/21/2024 Mild tricuspid regurgitation (ICD-10 - I07.1) ECHO (02/13/2023) revealed mild TR 06/30/2024 Nonrheumatic aortic valve insufficiency (ICD-10 - I35.1) ECHO (06/20/2024) revealed Mild -mod aortic insufficiency. Low normal LV systolic function. The calculated EF is 60-65% 01/21/2024 Overweight (BMI 25.0-29.9) (ICD-10 - E66.3) Discussed Lifestyle Modifications on today's encounter. I recommend exercising 30 mins per session, 5 x per week. I recommend dietary restrictions, eat more lean protein, fruits and vegetables, and plant based oils (olive oil). Avoid canned fruits, vegetables, and soup, no red meat or cheese. Limit Sodium 2 grams daily. Avoid refined sugar 06/30/2024 Nonrheumatic mitral valve regurgitation (ICD-10 - I34.0) ECHO (06/20/2024) revealed mild MR 06/30/2024 Atherosclerosis of artery of both lower extremities (ICD-10 - I70.203) Normal NEGRO with no signs or symptoms of peripheral arterial disease. 01/21/2024 Nonrheumatic aortic valve insufficiency (ICD-10 - I35.1) ECHO (02/2023) revealed Mild aortic insufficiency. Low normal LV systolic function. The calculated EF is 50-55% 01/21/2024 Nonrheumatic mitral valve regurgitation (ICD-10 - I34.0) ECHO (02/13/2023) revealed mild MR 06/30/2024 Tricuspid valve regurgitation, nonrheumatic (ICD-10 - I36.1) ECHO (02/13/2023) revealed mild TR 06/30/2024 Nonrheumatic aortic sclerosis (ICD-10 - I35.8) Outside records reviewed on today's encounter which consisted of diagnostic testing-CTA 01/21/2024 Atherosclerosis of artery of both lower extremities (ICD-10 - I70.203) Normal NEGRO with no signs or symptoms of peripheral arterial disease. 01/21/2024 Other The patient was provided the chance [...] and communicating results to the patient/family/car egiver. Coco Dias APRN, ADOPTION MANAGER-C Plan Of Treatment Next Appt Details Provider Name:VIKI Ruy MCPHERSON, 01/18/2025 03:00:00 PM, [address] [address], [facility] [address], [place], [address], Insurance Providers Payer Name Payer Address Payer Phone Subscriber Number Group Number Insured Name Patient Relationship to Insured Coverage Start Date Coverage End Date Medicare of [place] [facility] [address] [address] [place] [address] [id number] Dagmar Flores Self - patient is the insured [facility] Commercial [address] [place] [id number] Dagmar Flores Self - patient is the insured Medical (General) History Medical History History ICD Code Hyperlipidemia E78.5 Atrial fibrillation I48.0 Palpitations R00.2 Myocardial infarction greater than 8 wee ks ago I25.2 Diabetes Type 2 Coronary artery disease I25.10 SSS (sick sinus syndrome) I49.5 PAF (paroxysmal atrial fibrillation) I48 .0 Hypertension I10 Cardiomyopathy I42.9 Surgical History Surgery Date(Month/Year) Cardiac Catheterization Pacermaker Implant & Ablation 2002 New Pacemaker Implant 2014 Breast Reduction 2015 Gastric Bypass 2010 Hysterectomy 1985 T&A Breast Biopsies 2020 GEN change 11/2022 Hospitalization History Reason Date(Month/Year) unstable angina Nov 2023
--- OUTSIDE RECORDS SUMMARY | 2024-08-25 12:28 | XMS_ITS | Encounter Summary ---
Author Organization [employer] [facility] [employer] [facility] Address [address] [place] [address] Care Team Providers Care Automation Operator Name Role Phone Charles Barrett MD Primary Care Provider [phone]- [phone] Encounter Details Date Type Department Care Team (Late st Contact Info) Description 11/10/2019 Transcribed Document [facility] [place] Family Medicine [facility] [place] [address] ProviderRaúl MD [address] [place] [address] Social History Tobacco Use Types Packs/Day Years Used Date Smoking Tobacco: Never Assessed Comments Unknown Sex and Gender Information Value Date Recorded Sex Assigned at Not on file Legal Sex Female 5:06 PM CDT Gender Identity Not on file Sexual Orientation Not on file documented as of this encounter Miscellaneous Notes * Cerner Conversion Note - Historical ProviderMD - 11/10/2019 5:53 PM CDT Nursing Discharge Summary Entered On: 11/10/2019 17:53 EDT Performed On: 11/10/2019 17:53 EDT by Monica Stubbs, direct support professional Documentation Discharge Date/Time : 11/10/2019 19:10 EDT Transporter Signature : Monica Stubbs, RN Monica Stubbs RN - 11/10/2019 20:59 EDT Patient Disposition, General : Discharge Discharge To : Home with ambulatory/outpatient follow-up Mode Of Departure, General Discharge : Private vehicle IV Discontinued : Not applicable IV Therapy Comment : Port deaccessed. Personal Belongings With Patient : Yes Pt's Own Supply of Medications Returned : No patient supply of medications to return Teaching Method : Explanation, Printed materials Teaching Evaluation : Verbalizes understanding Monica Stubbs RN - 11/10/2019 17:53 EDT documented in this encounter Plan of Treatment Upcoming Encounters Date Type Department Care Team (Late st Contact Info) Description 11/03/2024 3:45 PM EDT Appointment [address] [place] [address] documented as of this encounter Visit Diagnoses Not on filedocumented in this encounter Care Teams Automation Operator Relationship Specialty Start Date End Date Charles Barrett MD [address] [facility] [address] [place] [address] PCP - General Family Medicine 11/19/22 documented as of this encounter
--- OUTSIDE RECORDS SUMMARY | 2024-08-25 12:28 | XMS_ITS | Clinical Summary ---
Author Organization [facility] Address [address] [place] [address] Care Team Providers Care Catcher Helper Name Role Phone Charles Barrett MD Primary Care Provider +1- [phone] Social History Tobacco Use Types Packs/Day Years Used Date Smoking Tobacco: Never Assessed Comments Unknown Sex and Gender Information Value Date Recorded Sex Assigned at Not on file Legal Sex Female 6:58 AM EST Gender Identity Not on file Sexual Orientation Not on file Last Filed Vital Signs Vital Sign Reading Time Taken Comments Blood Pressure 113/72 06/09/2019 1:15 PM CDT Pulse 70 06/09/2019 1:15 PM CDT Temperature 36.9 C (98.4 F) 06/09/2019 1:15 PM CDT Respiratory Rate 20 06/09/2019 1:15 PM CDT Oxygen Saturation 100% 06/09/2019 1:15 PM CDT Inhaled Oxygen Concentration - - Weight - - Height - - Body Mass Index - - Plan of Treatment Not on file Insurance MEDICARE BCBS [place] FEP Care Teams Catcher Helper Relationship Specialty Start Date End Date Charles Barrett MD [facility] [address] [facility] [address] [place] [address] PCP - General 06/09/19
--- OUTSIDE RECORDS SUMMARY | 2024-08-25 12:28 | XMS_ITS | Encounter Summary ---
Author Organization [employer] Address [address] [place] [address] Care Team Providers Care Senior Electronics Design Engineer Name Role Phone Charles Barrett MD Primary Care Provider +1- [phone] Reason for Referral * Mammography (Routine) - Closed Specialty Diagnoses / Procedures Referred By Contjessika t Referred To Contact Diagnoses Visit for screening mammogram Procedures MM digital mammo screen with sudheer bilateral Charles Barrett MD [address] [place] [address] Phone: tel: fax: Referral ID Status Reason Start Date Expiration Date Visits Re quested Visits Authorized [id number] Closed 11/02/2023 04/30/2024 1 1 Encounter Details Date Type Department Care Team (Late st Contact Info) Description 11/19/[address] [address] Charles Barrett MD [address] [place] [address] Visit for screening mammogram (Primary Dx) Social History Tobacco Use Types Packs/Day Years [...] Info) Description 11/03/2024 3:45 PM EDT Appointment [facility] [address] [facility] [address] [place] [address] documented as of this encounter Results * MM digital mammo screen with sudheer bilateral (11/02/2023 3:14 PM EDT) Anatomical Region [...] the next mammogram. At our facility, a [place] marker is positioned over a visible skin [...] cancer. COMPARISON STUDY: 2022 through 2014 from [facility] FINDINGS: Craniocaudal and mediolateral oblique [...] the benefit of computer aided detection (CAD). us Charles Barrett MD IMG MAMMOGRAPHY ORDERABLES Final Result documented in this encounter Visit Diagnoses Diagnosis Visit for screening mammogram- Primary Visit for screening mammogram documented in this encounter Care Teams Senior Electronics Design Engineer Relationship Specialty Start Date End Date Charles Barrett MD [address] [facility] [address] [place] [address] PCP - General Family Medicine 11/19/22 documented as of this encounter
--- OUTSIDE RECORDS SUMMARY | 2024-08-25 12:28 | XMS_ITS | Encounter Summary ---
Author Organization [employer] Address [address] [place] [address] Care Team Providers Care Drophammer Operator Name Role Phone Charles Barrett MD Primary Care Provider +1- [phone] Encounter Details Date Type Department Care Team (Late st Contact Info) Description 11/10/2019 Transcribed Document [facility] [place] [address] ProviderRaúl MD [address] [place] [id number] Social History Tobacco Use Types Packs/Day Years Used Date Smoking Tobacco: Never Assessed Comments Unknown Sex and Gender Information Value Date Recorded Sex Assigned at Not on file Legal Sex Female 5:06 PM CDT Gender Identity Not on file Sexual Orientation Not on file documented as of this encounter Miscellaneous Notes * Cerner Conversion Note - Raúl ProviderMD - 11/10/2019 4:58 PM CDT DATE OF SERVICE: 11/10/2019 LEFT HEART CATHETERIZATION REPORT INDICATIONS: Dyspnea, equivalent angina, history of abnormal nuclear stress test, abnormal coronary artery calcium score. PROCEDURE PERFORMED: Standard left heart catheterization. TECHNIQUE: A 5/6-Maori sheath was placed in the right radial artery. Galdino catheter was used for selective angiography of left and right coronary arteries obtaining pressures in the left ventricle. Left ventriculogram was not performed. 5 mg verapamil, 50 units/kg of heparin were administered via the radial artery sheath. Following the diagnostic catheterization, the radial artery sheath was removed and the access site successfully compressed using a TR band. No complications. HEMODYNAMICS: Left ventricle 110/15 mmHg, aorta 110/70 mmHg. DIAGNOSES: 1. Mild coronary artery atherosclerosis. 2. Normal left ventricular filling pressure without gradient across the aortic valve. CORONARY ANATOMY: 1. Left main trunk: Angiographically normal. 2. LAD: Moderate caliber vessel, which gives rise to moderate caliber first diagonal branch, small caliber second diagonal branch, small caliber third diagonal branch before extending beyond the apex. Mild atherosclerosis present in LAD diagonal branches. 3. Circumflex artery: Moderate caliber vessel, which gives rise to a tiny bifurcating high lateral branch, moderate caliber posterolateral branch. Luminal irregularities present in the circumflex artery. 4. Right coronary artery: Dominant vessel. Large caliber vessel, which gives rise to a small caliber posterior descending artery, small caliber posterolateral branch. Luminal irregularities present in the right coronary artery. 5. Left ventricle: Normal left ventricular filling pressure without gradient across the aortic valve. IMPRESSION: Angiographically, the patient has mild coronary artery atherosclerosis. There is no indication for revascularization. Risk factor modification and medical management are recommended. /[id number] Jarad Rodriguez MD SSL/AQ / SSL / MODL /[id number] CC: Charles Barrett documented in this encounter Plan of Treatment Upcoming Encounters Date Type Department Care Team (Late st Contact Info) Description 11/03/2024 3:45 PM EDT Appointment [address] [place] [address] documented as of this encounter Visit Diagnoses Not on filedocumented in this encounter Care Teams Drophammer Operator Relationship Specialty Start Date End Date Charles Barrett MD [address] [facility] [address] [place] [address] PCP - General Family Medicine 11/19/22 documented as of this encounter
[2024-08-25 13:04] LABS: Basophils % 0.9 % (0.1-2.0); Eosinophils # 0.1 Kmm3 (0.0-0.4); Hemoglobin 11.6 g/dL (12.2-16.2); Immature Granulocytes # 0.01 10^3uL; Immature Granulocytes % 0.2 %; Lymphocytes # 1.6 K/mm3 (0.7-4.5); Lymphocytes % 34.7 % (10-50); Mean Corpuscular HGB Conc 30.5 g/dL (31.8-35.4); Mean Corpuscular Hemoglobin 27.4 pg (27.0-31.2); Mean Corpuscular Volume 89.6 fl (81-99); Mean Platelet Volume 9.5 fl (7.4-10.4); Monocytes # 0.5 K/mm3 (0.1-1.0); Monocytes % 10.9 % (1.7-9.3); Neutrophils # 2.4 K/mm3 (1.8-7.8); Neutrophils % 50.3 % (37.0-80.0); Nucleated Red Blood Cells # 0 10^3/uL; Nucleated Red Blood Cells % 0 %; Platelet Count 242 K/mm3 (142-424); Red Blood Count 4.24 M/mm3 (4.20-5.40); Red Cell Distribution Width 14.6 % (11.5-17.5); Red Cell Distribution Width-SD 47.6 fL; White Blood Count 4.7 K/mm3 (4.8-10.8)
[2024-08-25 13:52] LABS: Albumin Level 3.9 g/dl (3.5-5.0); Chloride 109 mmol/L (98-107)
[2024-08-25 13:53] LABS: Potassium 4.4 mmoL/L (3.5-5.1); Sodium 139 mmol/L (136-145)
[2024-08-25 13:55] LABS: Alanine Aminotransferase 14 U/L (12-78); Albumin/Globulin Ratio 1.7 (1.1-1.8); Alkaline Phosphatase 116 U/L (38-126); Anion Gap 6.4 mEq/L (5-15); Aspartate Amino Transferase 32 U/L (14-36); Bilirubin,Total 0.5 mg/dl (0.2-1.3); Blood Urea Nitrogen 10 mg/dl (7-17); Carbon Dioxide 28 mmol/L (22.0-30.0); Estimated Glomerular Filt Rate 97 ml/min (>60); GFR (African American) 118 ML/MIN (>60); Globulin 2.3 g/dL (1.3-3.2); Total Protein,Serum 6.2 g/dl (6.3-8.2); Triglycerides 98 mg/dl (30-150); VLDL Cholesterol 20 mg/dL (0-40)
[2024-08-25 13:56] LABS: Calcium 8.8 mg/dl (8.4-10.2); Chol/HDL Ratio 1.9 (1-3.5); Cholesterol 203 mg/dl (140-200); Glucose 94 mg/dl (74-100); HDL Cholesterol 108 mg/dl (40-60); Iron 47 ug/dL (37-170)
[2024-08-25 14:07] LABS: Direct LDL Cholesterol 69.28 mg/dL (100-129)
== END 2024-08-25 23:59 | disposition home or self-care (01) ==
PROVIDERS: PCP Family Medicine; Visit Provider Family Medicine
DX: E78.5 Hyperlipidemia, unspecified (principal); D64.9 Anemia, unspecified
CPT/HCPCS: 36415; 80053; 80061; 83540; 85025

== ENCOUNTER 2024-09-08 09:08 | Outpatient (CLI) | payer MEDICARE, BC, SELFPAY ==
--- OUTSIDE RECORDS SUMMARY | 2023-12-14 09:15 | XMS_ITS ---
Author Organization [facility] Address 1210 [facility] [address] [place] [phone] Care Team Providers Care Net Finisher Name Role Phone Arjun Barrett Primary Care Provider [phone] Dai Avalos Unavailable [phone] Allergies Allergen (clinical drug ingredient) Drug/Non Drug [...] review and pick correct strength-formulati on from [employer] options. If intended option is not shown, [...] review and pick correct strength-formulati on from [employer] options. If intended option is not shown, [...] [address] [place] [phone] 12/14/2023 Dai Avalos Hip pain M25.559 Assessments [...] * Dagmar FLORESaDOB: 1950 (74 yo F)Acc No.[id number]:12/14/2023 Progress Notes Patient: Dagmar TORRES Provider: LIBERTAD Connor :1950 A ge:73 Y S ex:Female Date:12/14/2023 Address:[place] Pcp:Arjun Barrett Subjective: * Chief Complaints: * [...] S out [facility]-seizure, passed out 03/2019, [facility] ER-syncope 10/24/2019, [facility] ER - syncope 10/28/2019. * [...] *Please review and pick correct strength-formulation from [employer] options. If intended option is not shown, [...] *Please review and pick correct strength-formulation from [employer] options. 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 * Examination: G eneral [...] * Images: Billing Information: * Visit Code: 48127 Office Visit, Est Pt., Level 3. * Procedure Codes: 45161 PULSE OX. * Electronic signature of Anjelica Avalos APRN on 09/08/2024 at 09:18 AM EDT Sign off status: Pending * Provider: LIBERTAD Connor Date: 1 Generated for Antonio maynard/Akira/Kermitsmitting on: 0 09/08/2024 09:18 AM EDT History and Physical Notes * HPI [...]
--- OUTSIDE RECORDS SUMMARY | 2024-01-05 06:00 | XMS_ITS ---
[facility] Address 1210 [facility] [address] [place] [phone] Care Team Providers Care Senior Application Programmer Name Role Phone Arjun Barrett Primary Care Provider Allergies Allergen (clinical drug ingredient) Drug/Non Drug Allergy documented on EMR Reaction Allergy Type Onset Date Status hydromorphone Dilaudid Unknown Drug Allergy Act lico codeine Codeine Unknown Drug Allergy Active REASON FOR VISIT Follow Up [facility] ER - [place] Medications Medication [...] review and pick correct strength-formulati on from Issuu options. If intended option is not shown, discontinue and re-order from [employer] Search* Active Vitamin D3 50 MCG (2000 UT) 1 tab(s) orally once a day; Duration: 90 days Active NEBULIZER SET UP FOR ADULT DIRECTED *Please review for potential replacement for e-prescription and drug interaction check* 07/31/2021 Active Ipratropium-Albuterol 3/ 0.5/ 3 ML 3 ML TID *Please review and pick correct strength-formulati on from Issuu options. If intended option is not shown, [...] Encounter Location Date Provider Diagnosis [facility]Eric 1210 [facility] [address] [place] [phone] 01/05/2024 Arjun Barrett Fall W19.XXXA and Radial [...] Penny FLORESalvaro LockaDOB: 1950 (74 yo F)Acc No.[id number]:01/05/2024 Progress Notes Patient: Dagmar TORRES Provider: Arjun Barrett M.D. :1950 A ge:73 Y S ex:Female Date:01/05/2024 Address:[address], [id number] Subjective: * Chief Complaints: * 1 . Follow Up [facility] ER - [place]. * HPI: [...] 05/2022. * Hospitalization/Major Diagno stic Procedure: S [facility] ER-seizure, passed out 03/2019, [facility] ER-syncope 10/24/2019, [facility] ER - syncope 10/28/2019, [facility] ER - Fall- [place] 12/30/2023. [...] review and pick correct strength- formulation from [employer] options. If intended option is not shown, [...] *Please review and pick correct strength-formulation from Yekraspan options. If intended option is not shown, [...] * Images: Billing Information: * Visit Code: 00387 Office Visit, Est Pt., Level 3. * Procedure Codes: * Electronic signature of Arjun Barrett MD on 09/08/2024 at 09:16 AM EDT Sign off status: Pending * Provider: Arjun Barrett M.D. Date: Generated for Antonio maynard/Akira/Solis on: 0 09/08/2024 09:16 AM EDT History and Physical Notes * [...]
--- OUTSIDE RECORDS SUMMARY | 2024-03-26 05:00 | XMS_ITS ---
Author Organization [facility] Address [address] [address] Care Team Providers Care Saturation Equipment Operator Name Role Phone Migration, Provider Unavailable Unavailable REASON FOR VISIT EMR-Julien Encounters Encounter Location Date Provider Diagnosis [facility] [address] [facility] [address] [place] [address] 03/26/2024 Provider Migration Plan Of Treatment No Information Progress Notes * IDA MOTLEY GDOB: [birth year] (74 yo F)Acc No.[id number]:03/26/2024 Patient: Scott ROMEO IDA Ruthie :1950 A ge:73 Y S ex:Female Address:[address] [place] [address] [address], [place], [address] Subjective: * Chief Complaints: * E MR-Julien * * Date:
--- OUTSIDE RECORDS SUMMARY | 2024-03-27 05:00 | XMS_ITS ---
Author Organization [facility] Address [address] [facility] [address] [place] [address] Care Team Providers Care Auto Transport Driver Name Role Phone Migration, Provider Unavailable Unavailable Allergies Allergen (clinical drug ingredient) Drug/Non Drug Allergy documented on EMR Reaction Allergy Type Onset Date Status Hydromorphone / Dilaudid?, Palladone TM (uncoded) Unknown Allergy Active codeine Codeine Unknown Drug Allergy Active REASON FOR VISIT EMR-Julien Encounters Encounter Location Date Provider Diagnosis [facility] [address] [facility] [address] [place] [address] 03/27/2024 Provider Migration Plan Of Treatment No Information Progress Notes * IDA MOTLEY GDOB: [birth year] (74 yo F)Acc No.[id number]:03/27/2024 Patient: IDA TORRES :1950 A ge:73 Y S ex:Female Address:[address] [place] [address] [address], [place], [address] Subjective: * Chief Complaints: * E MR-Julien * Allergies: H ydromorphone / Dilaudid?, Palladone TM: AllergyCodeine: Allergy * * Date:
--- OUTSIDE RECORDS SUMMARY | 2024-05-05 08:45 | XMS_ITS ---
Author Organization [facility], [facility] Address [address] [place] [address] Care Team Providers Care High School Combination Teacher Name Role Phone Joy PUENTES, Fran Primary Care Provider Piero Miranda MD, Negro Unavailable REASON FOR VISIT egd Encounters Encounter Location Date Provider Diagnosis [facility] [address] [place] [address] 05/05/2024 Negro Miranda Plan Of Treatment Next Appt Details Provider Name:Negro molina, 09/29/2028 11:00:00 AM, [address] [place], [address], Progress Notes * Penny FLORESena GDOB: [birth year] (74 yo F)Acc No.[id number]:05/05/2024 Patient: Dagmar TORRES Provider: Alicia Oseguera M.D :1950 A ge:73 Y S ex:Female Date:05/05/2024 Address:[address] [place], [place] [id number] Pcp:Fran Hamilton MD * Images: * Electronic signature of Catarino Miranda MD on 09/08/2024 at 09:19 AM EDT Sign off status: Pending * Provider: Alicia Oseguera M.D Date: 0 05/05/2024 Generated for Printi ng/Faxing/eTransmitting on: 0 09/08/2024 09:19 AM EDT
--- OUTSIDE RECORDS SUMMARY | 2024-05-31 10:45 | XMS_ITS ---
Author Organization [employer], [facility] Address [address] [place] [address] Care Team Providers Care Environmental Services Project Manager Name Role Phone Joy PUENTES, Fran Primary Care Provider Piero Miranda MD, [facility] Unavailable Allergies Allergen (clinical drug ingredient) Drug/Non [...] Notes Problem Gastro-esophageal reflux disease without esophagitis (892405408) Gastro-esophag eal reflux disease without esophagitis (K21.9) 06/01/19 Active confirmed Problem Gastroduodenitis (832520140) Gastritis, unspecified, without bleeding (K29.70) 06/01/19 Active confirmed Problem Dysphagia (19291102) Dysphagia, unspecified (R13.10) 06/01/19 Active confirmed Problem History of bariatric surgical procedure (357272663) Bariatric surgery status (Z98.84) 06/01/19 Active confirmed Vital Signs Weight 145 lbs 05/31/2024 Blood pressure systolic 140 mm Hg 06/01/19 Blood pressure diastolic 77 mm Hg Heart Rate 80 /min 05/31/2024 Encounters Encounter Location Date Provider Diagnosis [facility], [place] [address] [place], [place] [address] 05/31/2024 Negro Miranda Gastro-esophageal reflux disease without [...] 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 side 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 of PPI use which include [...] Name:Negro molina, 09/29/2028 11:00:00 AM, [address] [place], [address], Progress Notes * Dagmar FLORES GDOB: [birth year] (74 yo F)Acc No.[id number]:05/31/2024 Progress Notes Patient: Dagmar TORRES Provider: Alicia Oseguera M.D :1950 A ge:73 Y S ex:Female Date:05/31/2024 Address:[address] [place] [address] Pcp:Fran Hamilton MD Subjective: * Chief Complaints: [...] Preventive Medicine: YOUR PREVENTIVE WELLNESS PLAN: B AR, Height, and Weight: The Recommended Frequency is: [...] of Catarino Miranda MD on 09/08/2024 at 09:15 AM EDT Sign off status: Pending * Provider: Alicia Oseguera M.D Date: 05/31/2024 Generated for Antonio maynard/Akira/Solis on: 09/08/2024 09:15 AM EDT History and Physical Notes * HPI (History of Present Illness) Category Sub-Category Detail Notes Category Not es Constitutional patient dysph agia is been resolved Examination Category Sub-Category Detail Notes Category Not es General Examination GENERAL APPEARANCE: in no ac nkechi distress, well developed, well nourished HEART: no murmurs, regular rate and rhythm, S1, S2 normal LUNGS: clear to auscultatio n bilaterally ABDOMEN: normal, bowel sounds present, soft, nontender, nondistended
--- OUTSIDE RECORDS SUMMARY | 2024-06-29 05:10 | XMS_ITS ---
Author Organization [facility] Address [address] [place] [address] Care Team Providers Care Life Guard Name Role Phone MAX LOPEZ Primary Care Provider [phone] Ashlee Argueta [phone] REASON FOR VISIT r/s chart review Social History Sex Assigned At : Social History Observation Description Sex Assigned At Female Encounters Encounter Location Date Provider Diagnosis [facility] [address] [place] [address] 06/29/2024 Ashlee Argueta Plan Of Treatment Next Appt Details Provider Name:MAX LOPEZ, 01/18/2025 08:30:00 AM, [address] [place] [address], [phone], Provider Name:Kolton Vazquez, 04:40:00 PM, [address] [place] [address], [phone], Provider Name:Girma nance, 05/29/2025 01:50:00 PM, [address] [place] [address], [phone], Progress Notes * IDA MOTLEY GDOB: [birth year] (74 yo F)Acc No.[id number]:06/29/2024 Patient: IDA TORRES Provider: Salma Argueta :1950 A ge:74 Y S ex:Female Date:06/29/2024 Address:[address] [place] [address] , [address], [facility] Pcp:MAX LOPEZ Structured Data:Seasonal : Y es; How did you hear about our practice? : Established patient Subjective: * Chief Complaints: * 1 . R/s chart review. * Medical History: Objective: * Vitals: Assessment: Plan: * Treatment: * Billing Information: * Visit Code: * Procedure Codes: * Electronic signature of Ted Argueta APRN on 09/08/2024 at 09:16 AM EDT Sign off status: Pending * Provider: Salma Argueta Date: 06/29/2024 Generated for Antonio Romo/Solis on: 09/08/2024 09:16 AM EDT
--- OUTSIDE RECORDS SUMMARY | 2024-07-04 10:15 | XMS_ITS ---
Author Organization [facility] [place] Address [address] [address] [address] [place] [address] Care Team Providers Care Credit Rating Checker Name Role Phone Fran Hamilton Primary Care Provider Adi Hayes Unavailable [phone] Faby Bonilla Unavailable [phone] REASON FOR VISIT LTHA, AVENIR Encounters Encounter Location Date Provider Diagnosis [facility] [place] [address] [address] 07/04/2024 Faby Bonilla Plan Of Treatment Next Appt Details Provider Name:Faby Bonilla, 01/18/2025 10:00:00 AM, [address] [address], [place], [address], Progress Notes * SANDRADagmar MENDES GDOB: [birth year] (74 yo F)Acc No.[id number]:07/04/2024 Progress Note Patient: Dagmar TORRES Provider: Scott Bonilla APRN, FNP-C :1950 A ge:74 Y S ex:Female Date:07/04/2024 Address:[address] , [address], [place], [id number] Pcp:Fran Hamilton Subjective: * Chief Complaints: * 1 . LTHA, AVENIR. * Medical History: Objective: * Vitals: Assessment: Plan: * Treatment: * Billing Information: * Visit Code: * Procedure Codes: * Electronic signature of NAV Lux on 09/08/2024 at 09:16 AM EDT Sign off status: Pending * Provider: Scott Bonilla APRN, FNP-C Date: 07/04/2024 Generated for Antonio maynard/Akira/Solis on: 0 09/08/2024 09:16 AM EDT
--- OUTSIDE RECORDS SUMMARY | 2024-07-11 15:35 | XMS_ITS | Encounter Summary ---
Author Organization Healthcare Address [address] [place] [address] Care Team Providers Care Entry Level Account Executive Name Role Phone Charles Barrett MD Primary Care Provider [phone]- [phone] Encounter Details Date Type Department Care Team (Latest Contact Info) Description 07/11/2024 3:35 PM EDT - 07/11/2024 11:59 PM EDT Hospital Encounter Cardiac Imaging [address] [place] [address] Pacemaker Discharge Disposition: Home or Self Care [...] often do you attend chur ch or jew services? More than 4 times per year 11/25/2023 Do you belong to any clubs o r organizations such as jew groups, unions, fraternal or athletic groups, or [...] place to sleep or slept in a correction (including now)? No 11/23/2023 Utilities Answer Date [...] Description 11/23/2024 11:40 AM EDT Office Visit [facility] [address] [facility] [phone] Indu Grimes MD [address] [place] [address] 12/08/2024 9:40 AM EDT Office Visit [facility] [address] [facility] [phone] Sylvester Farr MD [address] [place] [phone] documented as of this encounter Procedures Procedure Name Priority Date/Time Associated Diagnosis Comments CARDIAC DEVICE CHECK - REMOTE - PACEMAKER Routine 07/11/2024 3:46 PM EDT Pacemaker documented in this encounter Results * CARDIAC DEVICE CHECK - REMOTE - PACEMAKER (07/11/2024 3:46 PM EDT) Anatomical Region Laterality Modality Other Narrative 07/11/2024 3:51 PM EDT [facility] - [facility] Remote CIED Report Name: Dagmar Flores Date: 07/11/2024 : 1950 Age: 74 y.o. Reporting period: Reporting period is the last 91 days, with at least 30 days of remote monitoring. Interim reports, if any, reviewed and addressed previously; see remote alert entries for more details. Most recent report, dated 07/11/2024, analysis and summary as follows: Device: Stroud dual chamber pacemaker Permanent Programming Mode : [...] documented as of this encounter Care Teams Entry Level Account Executive Relationship Specialty Start Date End Date Charles Barrett MD [address] [place] [address] PCP - General 09/11/21 documented as of this encounter
--- OUTSIDE RECORDS SUMMARY | 2024-07-15 07:15 | XMS_ITS ---
Author Organization [facility] Address [address] [facility] [address] [place] [address] Care Team Providers Care Youtuber Name Role Phone Fran Hamilton Primary Care Provider Adi Hayes Unavailable [phone] Faby Bonilla Unavailable [phone] Allergies Allergen (clinical drug ingredient) Drug/Non Drug Allergy documented on EMR Reaction Allergy Type Onset Date Status hydromorphone Dilaudid Unknown Drug Allergy Act lico codeine Codeine Unknown Drug Allergy Active REASON FOR VISIT This patient presents today for follow up of LTHA AVENIR 06/07/24, Xray done at [facility] on 07/13/24 Medications Medication SIG (Take, Route, Frequency, Duration) Notes Start Date End Date Status ALPRAZolam 0.25 MG TAKE 1 TABLET TWICE A DAY NEEDED FOR 10 DAYS Oral; Duration: 10 Days Active Amoxicillin 500 MG 4 capsules Orally 1 hour prior to dental appt 05/23/2024 Active traMADol HCl 50 MG 1-2 tabs Orally every 6 hours; Duration: 7 days As needed for pain, acute pain exception 06/24/2024 07/22/2024 Active Ondansetron HCl 4 MG 1 tablet Orally every 6 hours As needed for nausea 06/24/2024 Active Keppra 500 MG 1 tablet Orally ever y 12 hrs Active Venlafaxine HCl 37.5 MG 1 tablet with fo od Orally Once a day Active Midodrine HCl 5 MG 1 tablet Orally Twic e a day Active Trelegy Ellipta 100-62.5-25 MCG/ACT 1 puff Inhalation Once a day Active Omeprazole 40 MG 1 capsule 1/2 to 1 h our before morning meal Orally Once a day Active Atorvastatin Calcium 40 MG 1 tablet Oral ly Once a day Active Albuterol Active Montelukast Sodium 10 MG 1 tablet Orally Once a day Active Eliquis 5 MG as directed Orally Active Raloxifene HCl 60 MG 1 tablet Orally Onc e a day Active Vital Signs Height 61 in 07/15/2024 Weight 136 lbs 07/15/2024 BMI 25.69 kg/m2 07/15/2024 Height-cm 154.94 cm 07/15/2024 Weight-kg 61.69 kg 07/15/2024 Encounters Encounter Location Date Provider Diagnosis [facility] [place] [address] [address] 07/15/2024 Faby Bonilla Unilateral primary osteoarthritis, left hip M16.12 and Pain in left hip M25.552 Assessments Encounter Date Diagnosis (ICD Code) Assessment Notes Treatment Notes Treatment Clinical Notes Section Notes 07/15/2024 Unilateral primary osteoarthritis, left hip (ICD-10 - M16.12) Discontinue hip precautions Progress to activities as tolerated Return to pool, hot tub, bath tub Return to golf May apply lotions/creams directly on incision. Vitamin E oil will help lighten the incision. Ice as needed for swelling. Swelling and stiffness take 6-8 months to resolve. No dental work for 6 more weeks 07/15/2024 Pain in left hip (ICD-10 - M25.552) Plan Of Treatment Treatment Notes Assessment Notes Unilateral primary osteoarthritis, left hip Discontinue hip precautions Progress to activities as tolerated Return to pool, hot tub, bath tub Return to golf May apply lotions/creams directly on incision. Vitamin E oil will help lighten the incision. Ice as needed for swelling. Swelling and stiffness take 6-8 months to resolve. No dental work for 6 more weeks Next Appt Details Follow Up: january with Xra y, Reason: Provider Name:Faby Bonilla, 01/18/2025 10:00:00 AM, [address] [address], [place], [address], Progress Notes * Dagmar FLORES GDOB: [birth year] (74 yo F)Acc No.[id number]:07/15/2024 Progress Note Patient: Dagmar TORRES Provider: Scott Bonilla APRN, FNP-C :1950 A ge:74 Y S ex:Female Date:07/15/2024 Address:[address] [place] [address] , [address] Pcp:Fran Hamilton Subjective: * Chief Complaints: * T his patient presents today for follow up of LTHA AVENIR 06/07/24Xray done at [facility] on 07/13/24 * HPI: D epression Screening: PHQ-2 (2015 Edition) L ittle interest or pleasure in doing things? N ot at all, F eeling down, depressed, or hopeless? N ot at all, T otal Score 0 . H ip: Patient returns today for 6 week postoperative followup.?Status post L eft Total Hip Arthroplasty. P atient reports P ain is improving, Joint motion is better. A mbulates with Nanda ane. P ain Medication D ecreasing. P hysical Therapy O utpatient PT has been helping. * ROS: G eneral / Constitutional: Patient denies c hange in appetite, chills, fatigue, fever, headache, lightheadedness, night sweats, , sleep disturbance, weight gain, weight loss, weakness.? * Medical History: * Surgical History: R TKA (Daniele) 2022RTK Revision (Daniele) 2023gastric bypass 2010pacemaker 2022LTKA VIVIAN (Daniele) 02/23/24LTHA (Daniele) 06/07/24 * Hospitalization/Major Diagno stic Procedure: s ee surgery history syncope/low hemoglobin, potassium, and magnesium 06/23/24 * Family History: F ather: diagnosed with Heart Disease, Diabetes, Arthritis, Stroke. M other: diagnosed with Heart Disease, Arthritis, Stroke, Osteoporosis. P aternal Grandfather: diagnosed with Heart Disease, Cancer, Arthritis, Osteoporosis. * Social History: T obacco Use: T obacco Control (Standard) T obacco use:: Nonsmoker. D rug/Alcohol: A ERIN-C (Standard) D id you have a drink containing alcohol in the past year?: No, Points: 0, Interpretation: Negative. * Medications: T akingEliquis 5 MG Tablet as directed Orally Montelukast Sodium 10 MG Tablet 1 tablet Orally Once a day Albuterol Raloxifene HCl 60 MG Tablet 1 tablet Orally Once a day Trelegy Ellipta 100-62.5-25 MCG/ACT Aerosol Powder Breath Activated 1 puff Inhalation Once a day Midodrine HCl 5 MG Tablet 1 tablet Orally Twice a day Venlafaxine HCl 37.5 MG Tablet 1 tablet with food Orally Once a day Atorvastatin Calcium 40 MG Tablet 1 tablet Orally Once a day Omeprazole 40 MG Capsule Delayed Release 1 capsule 1/2 to 1 hour before morning meal Orally Once a day Keppra 500 MG Tablet 1 tablet Orally every 12 hrs ALPRAZolam 0.25 MG Tablet TAKE 1 TABLET TWICE A DAY NEEDED FOR 10 DAYS Oral Amoxicillin 500 MG Capsule 4 capsules Orally 1 hour prior to dental appt traMADol HCl 50 MG Tablet 1-2 tabs Orally every 6 hours As needed for pain, acute pain exception, stop date 07/22/2024Ondansetron HCl 4 MG Tablet 1 tablet Orally every 6 hours As needed for nauseaMedication List reviewed and reconciled with the patientTaking Eliquis 5 MG Tablet as directed Orally Taking Montelukast Sodium 10 MG Tablet 1 tablet Orally Once a day Taking Albuterol Taking Raloxifene HCl 60 MG Tablet 1 tablet Orally Once a day Taking Trelegy Ellipta 100-62.5-25 MCG/ACT Aerosol Powder Breath Activated 1 puff Inhalation Once a day Taking Midodrine HCl 5 MG Tablet 1 tablet Orally Twice a day Taking Venlafaxine HCl 37.5 MG Tablet 1 tablet with food Orally Once a day Taking Atorvastatin Calcium 40 MG Tablet 1 tablet Orally Once a day Taking Omeprazole 40 MG Capsule Delayed Release 1 capsule 1/2 to 1 hour before morning meal Orally Once a day Taking Keppra 500 MG Tablet 1 tablet Orally every 12 hrs Taking ALPRAZolam 0.25 MG Tablet TAKE 1 TABLET TWICE A DAY NEEDED FOR 10 DAYS Oral Taking Amoxicillin 500 MG Capsule 4 capsules Orally 1 hour prior to dental appt Taking traMADol HCl 50 MG Tablet 1-2 tabs Orally every 6 hours As needed for pain, acute pain exception, stop date 07/22/2024Taking Ondansetron HCl 4 MG Tablet 1 tablet Orally every 6 hours As needed for nauseaMedication List reviewed and reconciled with the patient * Allergies: C odeineDjuan[Allergies Verified] Objective: * Vitals: H t: 61 in, Wt: 136 lbs, BMI: 25.69 Index, Pain scale: 3 1-10, Wt-k.69 kg, Ht-cm: 154.94 cm, Body Surface Area: 1.63. * Examination: G eneral Examination: General appearance: a lert, well-nourished and in no acute distress. Musculoskeletal: w ith mild swelling, no synovitis, no effusions, Antalgic gait favoring the surgical side. Extremities: m ild peripheral edema. L eft hip: Inspection: n ormal, without deformity, no leg length discrepancy. Palpation: w ith tenderness. Motor function: S trength is preoperatively in all muscle groups except for hip flexors. Sensation: i ntact. Vascular: P alpable pedal pulses. Gait: a ntalgic favoring the the surgical side. Range of Motion I nternal rotation normal, External rotation normal. Skin S urgical incision healed, no erythema. ? * Physical Examination: A P and lateral of the left hip shows an intact prosthesis in satisfactory position and alignment, no fracture or dislocation . Assessment: * Assessment: 1. U nilateral primary osteoarthritis, left hip - M16.12 (Primary) 2 . P ain in left hip - M25.552 Plan: * Treatment: * Procedure Codes: * Preventive Medicine: Screenings: F all risk screening F all Risk Assessment: N o falls in the past year. * Follow Up: n ovember with Xray * Billing Information: * Visit Code: 24750 Postop visit. * Procedure Codes: * Sign off status: Completed true * Provider: Scott Bonilla APRN, FNP-C Date: 0 07/15/2024 Generated for Antonio maynard/Akira/Mariitting on: 09/08/2024 09:16 AM EDT History and Physical Notes * HPI (History of Present Illness) Category Sub-Category Detail Notes Category Not es Hip Patient reports Pain is improving, Joint motion is better Patient returns today for 6 week postope rative followup Status post Left Total Hip Arthr oplasty Ambulates with Cane Physical Therapy Outpatient PT has be en helping Pain Medication Decreasing Depression Screening PHQ-2 (2015 Edition) Little interest or pleasure in doing things?: Not at all Feeling down, depressed, or hopeless?: N ot at all Total Score: 0 Physical Examination Category Sub-Category Detail Notes Section Note s AP and lateral of the left hip shows an intact prosthesis in satisfactory position and alignment, no fracture or dislocation Examination Category Sub-Category Detail Notes Category Not es Left hip Palpation: with tenderness Vascular: Palpable pedal pulse s Motor function: Strength is preopera tively in all muscle groups except for hip flexors Sensation: intact Inspection: normal, without defo rmity, no leg length discrepancy Gait: antalgic favoring th e the surgical side Range of Motion Internal rotation no rmal, External rotation normal Skin Surgical incision he aled, no erythema General Examination General appearance: alert, w ell-nourished and in no acute distress Extremities: mild peripheral abdulaziz a Musculoskeletal: with mild swelling, no synovitis, no effusions, Antalgic gait favoring the surgical side
--- OUTSIDE RECORDS SUMMARY | 2024-07-18 12:40 | XMS_ITS ---
Author Organization [facility] Address [address] [place] [address] Care Team Providers Care Insole Coverer Name Role Phone HAMILTONMAX Primary Care Provider Kolton Vazquez Unavailable [phone] Allergies Allergen (clinical drug ingredient) Drug/Non Drug [...] with food Orally once a day at bedtime; Duration: 90 days Active Keppra 500 MG 1 tablet Orally every 12 hrs; Duration: 90 days Active Gabapentin 300 MG TAKE 1 CAPSULE EVERY MORNING AND TAKE 3 CAPSULES AT BEDTIME; Duration: 90 days Active Eliquis 5 MG Take 1 tablet Orally Twice a day; Duration: 90 days Active Effexor XR 75 MG 1 capsule with food Oral Once a day; Duration: 90 days Active Albuterol Sulfate HFA 108 (90 Base) MCG/ACT 1 puff as needed Inhalation every 4-6 hours Active Albuterol Sulfate 1.25 MG/3ML 3 ml as needed Inhalation Three times a day dx j44.9; Duration: 90 days Active Ranolazine ER 500 MG 1 tablet Orally Twice a day Active Cyanocobalamin 1000 MCG/ML 1,000mcg / 1cc q month Injection once a month; Duration: 90 days Active Atorvastatin Calcium 40 MG 1 tablet Orally every night; Duration: 90 days Active BD Syringe/Needle 25G X 5/8 1 ML use one per month for B-12 injections; Duration: 90 days please dispense the one that is available for patient. Neerajfermin 06/30/2024 Active Vitamin B-6 100 MG 1 tablet Orally Once a day Unknown Vitamin B-1 100 MG 1 tablet Orally Once a day Unknown traMADol HCl 50 MG 1 tablet as needed ACUTE PAIN EXCEPTION Orally Two times a day; Duration: 10 days PRN 06/02/2023 Unknown Sucralfate 1 GM 1 tablet on an empty stomach Oral Twice a day; Duration: 30 days 03/14/2024 Unknown Trelegy Ellipta 200-62.5-25 MCG/ACT Inhale 1 puff by mouth once daily. Rinse mouth after each use; Duration: 30 days Active Omeprazole 40 MG 1 capsule Orally twice a day; Duration: 30 days 06/14/2020 Active Flonase Allergy Relief 50 MCG/ACT 1 spray in each nostril Nasally Twice a day; Duration: 30 days 05/09/2024 Unknown ARIPiprazole 20 MG 1 tablet Orally Once a day; Duration: 30 days 05/02/2024 Unknown ALPRAZolam 0.25 MG 1 tablet Orally Twice a day; Duration: 10 days As needed 05/02/2024 Unknown Montelukast Sodium 10 MG Take 1 tablet by mouth once daily; Duration: 90 days Active Midodrine HCl 5 MG 1 tablet at 7 am 1 tablet at 11 am Orally; Duration: 30 days As needed Active Social History Sex Assigned At : Social History Observation Description Sex Assigned At Female Problems Problem Type SNOMED Code ICD Code Onset Dates Problem Status W/U Status Risk Notes Problem Iron deficiency anemia (36442476) Iron deficiency anemia, unspecified iron deficiency anemia type (D50.9) Active confirmed Vital Signs Blood pressure systolic 108 mm Hg 07/19/19 25 Blood pressure diastolic 64 mm Hg 025 Heart Rate 90 /min 07/18/2024 Respiratory Rate 18 /min 07/18/2024 Height 61 in 07/18/2024 Weight 138.2 lbs 07/18/2024 BMI 26.11 kg/m2 07/18/2024 Oximetry 95 % 07/18/2024 Encounters Encounter Location Date Provider Diagnosis [facility] [address] [place] [address] 07/18/2024 Kolton Vazquez Essential (primary) hypertension I10 ; Atherosclerotic heart disease of [place] coronary artery with other forms of angina [...] DASH diet. 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 and healthy balanced diet , regular exercise, stay at healthy weight, 07/18/2024 Dyslipidemia (ICD-10 - E78.5) Counseled on [...] reduction with reduce stress-full situations. 07/18/2024 Other pt leaving for another state advise to follow with MD at destinationfor anemia and other diagnosis. Evaluation and management performed by Kolton Vazquez APRN Plan Of Treatment Treatment Notes Assessment Notes Essential (primary) hypertension Lan Engineer led on Achieve target BP ,lifestyle changes, balanced sleep, stress, low impact exercise, DASH diet. Atherosclerotic heart diseas e of [place] coronary artery with other forms of angina pectoris Importance of achieving adequate risk factor control, compliance with lipid- lowering agent, aspirin , beta mary if applicable. and healthy balanced diet , regular exercise, stay at healthy weight, Dyslipidemia Counseled on diet an d exercise., [...] stimulants, stress reduction with reduce stress-full situations. Other pt leaving for another state advise to follow with MD at destinationfor anemia and other diagnosis. Evaluation and management performed by Kolton Vazquez APRN Future Test Test Name Order Date Hemoglobin A1c 01/09/2025 Microalb/Creat Ratio, Randm Ur Lipid Panel 01/09/2025 Comp. Metabolic Panel (14) 01/09/2025 URINALYSIS, COMPLETE 01/09/2025 CBC/Diff Ambiguous Default 01/09/2025 Next Appt Details Follow Up: In December, Roxanneo n: Provider Name:MAX HAMILTON, 01/18/2025 08:30:00 AM, [address] [place] [address], [phone], Provider Name:Kolton Vazquez, 04:40:00 PM, [address] [place] [address], [phone], Provider Name:Girma Zelayaa lee ann, 05/29/2025 01:50:00 PM, [address] [place] [address], [phone], Progress Notes * IDA MOTLEY GDOB: [birth year] (74 yo F)Acc No.[id number]:07/18/2024 Progress Notes Patient: IDA TORRES Provider: Molly Vazquez APRN :1950 A ge:74 Y S ex:Female Date:07/18/2024 Address:[address] [place] [address] , [address] Pcp:MAX HAMILTON Structured Data:Seasonal : Y es; How did you hear about our practice? : Established patient Subjective: * Chief Complaints: * C AD, HTN, dyslipidemia, DM2, iron deficiency anemia, depression * HPI: P atient presents for: CAD, CT abdomen and pelvis on 04/06/2018 shows coronary artery calcification. Patient had stress test on 06/26/2023 shows no evidence of ischemia or infarct. Echo done on 06/25/2023 shows EF 65 to 70%. Patient has occasional chest pressure symptoms without significant ONEAL. Current medication include , atorvastatin, antianginal metoprolol and ranolazine,. HTN, patient currently on metoprolol, without any [...] infusions states she will be leaving for [place] next week and come back in December. Patient states she will tell her primary care in [place] about iron infusions. Major depression moderate, patient was managing with multiple medication Abilify, Effexor now only taking Effexor states her mood is getting better, no feeling down she would like to continue Effexor only. Patient denies any suicidal homicidal ideation present in the room, patient is leaving for [place] next week, she will come back in [...] sychiatric: SEE H PI. * Medical History: * Surgical History: A rthroscopy: Left knee 2004Breast Biopsy Hysterectomy Partial (ovaries remaining) 1986Nissen Fundoplasty 1996Pacemaker Implantation ([facility])- Gastroplasty 1986Roux en Y gastric bypass Bilateral upper lid lift 05/10/2021Total Knee Replacement-right 05/27/2022nee revision 04/21/23left hip replacement 06/07/2024 * Hospitalization/Major Diagno stic Procedure: H ysterectomy 1987Right knee replacement 07/21/2017pt passed out 10/09/20- 10/11/20melanoma removed from arm 2DX fall @ [facility] ER VISIT 4DX lt hip pain @ [facility] 06/07/2024-06/08/2024DX syncope @ [facility] 06/19/2024-06/23/2024 * Family History: Positive for Coronary Artery Disease ( father; mother ). Positive for Breast Cancer ( mat. GM ) and Cervical Cancer ( sister ). Negative for Colon Cancer or Ovarian Cancer. * Social History: [facility] Social History: T obacco T obacco use [...] achelors degree (e.g., MA, MS, Brain, MEd, PRODUCTION ASSEMBLY SUPERVISOR, ALISTAIR) O ccupation r etired M arital status: M arried # of [...] week H ow often do you attend taoist or samaritan services? M ore than 4 times per year D o you belong to any clubs or organizations??Yes T otal Social Isolation Score (NHANES): 0 Specialist ([facility]) D ermatologist S uncoast * Medications: T akingBD Syringe/Needle 25G X 5/8 1 ML Miscellaneous use one per month for B-12 injections , Notes to Pharmacist: please dispense the one that is available for patient. ThankyouRanolazine ER 500 MG Tablet Extended Release 12 [...] daily. Rinse mouth after each use Taking BD Syringe/Needle 25G X 5/8 1 ML Miscellaneous use one per month for B-12 injections , Notes to Pharmacist: please dispense the one that is available for patient. ThankyouTaking Ranolazine ER 500 MG Tablet Extended Release [...] once daily. Rinse mouth after each use UnknownALPRAZolam 0.25 MG Tablet 1 tablet Orally [...] ulcer - AllergyCodeine: Allergy - Onset Date 5903-86-55Jbxxiusd: Allergy - Onset Date 8263-43-02cfrKWOzad HCl: headache - Side Effects - Onset Date 01/23/2021no[Allergies Verified] Objective: * Vitals: M A: JN, BP: [...] - 06/30/2024 05:13 PM)?ValueReference Range?FOLATE, SERUM6.3- ng/mL?VITAMIN P48040040-9893 - pg/mL * Lab:CBC/Diff Ambiguous Jose D lt * Collection Date 06/30/2024 03/23/2024 03/14/2024 [...] Range: %) Neutrophils (Absolute) 3582 (Ref Range: 2672-9607 cells/uL) 2348 (Ref Range: 9228-6238 cells/uL) 3035 (Ref Range: 0159-1092 cells/uL) Lymphs (Absolute) 2035 (Ref Range: 850-3900 [...] Range: > OR = 60 mL/min/1.73m2) Notes: [employer], support 07/01/2024 07:45:14 : This order was created by the Interface. [employer], support 02/09/2024 10:25:42 : This order was [...] air entry noted, ,, rhonchi occassional.? MUSCULOSKELETAL: c ane noted. EXTREMITIES: t race edema. PERIPHERAL PULSES: s lightly faint. NEUROLOGIC: a ble to move all 4 extremities. PSYCH: a wake, , cooperative with exam. ? Assessment: * Assessment: 1. 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 E ssential (primary) hypertension L AB: CBC/Diff Ambiguous Default (Ordered for 01/09/2025) L AB: Comp. Metabolic Panel (14) (Ordered for 01/09/2025) L AB: URINALYSIS, COMPLETE (Ordered for 01/09/2025) Notes: Counselled on Achieve target BP ,lifestyle changes, balanced sleep, stress, low impact exercise, DASH diet. 3. D yslipidemia L AB: Lipid Panel (Ordered for 01/09/2025) Notes: Counseled on diet and exercise., target lipid levels Compliance with treatment regimen,, daily excercise low impact option of DASH / mediterranean diet explained 4. T ype 2 diabetes mellitus with other [...] aspirin, JUS inhibitor, and statin role explained. 5. I trace deficiency anemia, unspecified iron deficiency anemia type Notes: Counselled on Monitor labs and supplement with OTC iron /Vitamin C/B12/ folate, stay updated with cancer screening . 6. M ajor depressive disorder, recurrent, moderate Notes: Counselled on lifestyle modification , balance diet, sleep, low impact exercise, avoidance of stimulants, stress reduction with reduce stress-full situations. 7. O thers Notes: pt leaving for another state advise to follow with MD at destinationfor anemia and other diagnosis. Evaluation and management performed by Kolton Vazquez APRN * Procedures: S upervisor Max Hamilton MD . * Procedure Codes: * Follow Up: I n December * Billing Information: * Visit Code: 50326 Office Visit, Est Pt., Level 4. * Procedure Codes: * Sign off status: Completed true * Provider: Molly Vazquez APRN Date: 0 07/18/2024 Generated for Antonio maynard/Akira/Kermitsmitting on: 0 09/08/2024 09:17 AM EDT History and Physical Notes * [...] symptoms without significant ONEAL. Current medication include , atorvastatin, antianginal metoprolol and ranolazine,. HTN, patient currently on metoprolol, without any [...] infusions states she will be leaving for [place] next week and come back in December. Patient states she will tell her primary care in [place] about iron infusions. Major depression moderate, patient was managing with multiple medication Abilify, Effexor now only taking Effexor states her mood is getting better, no feeling down she would like to continue Effexor only. Patient denies any suicidal homicidal ideation present in the room, patient is leaving for [place] next week, she will come back in [...] trace edema PERIPHERAL PULSES: slightly faint MUSCULOSKELETAL: cane noted LYMPH NODES: no cervical adenopat hy PSYCH: awake, , cooperative with exam ORAL CAVITY: mucosa moist, no les ions, tongue in midline
--- OUTSIDE RECORDS SUMMARY | 2024-07-22 05:45 | XMS_ITS ---
Author Organization [facility] [place] Address [address] [facility] [address] [place] [address] Care Team Providers Care Senior Process Analyst Name Role Phone Fran Hamiltno Primary Care Provider Adi Hayes [phone] REASON FOR VISIT LT Hip F/U Encounters Encounter Location Date Provider Diagnosis [facility] [place] [address] [address] 07/22/2024 Adi Sanabria Plan Of Treatment Next Appt Details Provider Name:Faby Bonilla, 01/18/2025 10:00:00 AM, [address] [address], [place], [address], Progress Notes * Dagmar FLORES GDOB: [birth year] (74 yo F)Acc No.[id number]:07/22/2024 Progress Notes Patient: Dagmar TORRES Provider: Aaron Sanabria Jr., MD :1950 A ge:74 Y S ex:Female Date:07/22/2024 Address:[address] [place] [address] [address] , [address], [id number] Pcp:Fran Hamilton Subjective: * Chief Complaints: * 1 . LT Hip F/U. * Medical History: Objective: * Vitals: Assessment: Plan: * Treatment: * Billing Information: * Visit Code: * Procedure Codes: * Electronic signature of Adi Sanabria MD on 09/08/2024 at 09:19 AM EDT Sign off status: Pending * Provider: Aaron Sanabria Jr., MD Date: 0 07/22/2024 Generated for Antonio maynard/Akira/Solis on: 0 09/08/2024 09:19 AM EDT
--- OUTSIDE RECORDS SUMMARY | 2024-08-25 07:00 | XMS_ITS ---
Author Organization [facility] Address [address] [place] [phone] Care Team Providers Care Osha Inspector Name Role Phone Arjun Barrett Primary [...] Performing Lab: Notes/Report: FE 47 37-170 ug/dL REASON FOR VISIT check up and Annual [...] review and pick correct strength-formulati on from [employer] options. If intended option is not shown, [...] review and pick correct strength-formulati on from [employer] options. If intended option is not shown, [...] Status W/U Status Risk Notes Problem Anemia (343483752) Anemia (D64.9) Active confirmed Problem Diabetic peripheral neuropathy associated with type 2 diabetes mellitus (7449691847415) Type 2 diabetes mellitus with diabetic neuropathy, unspecified whether nursing home insulin use (E11.40) Active confirmed Vital Signs Weight 140.6 lbs 08/25/2024 Blood pressure systolic 110 mm Hg 08/26/19 25 Blood pressure diastolic 70 mm Hg 025 Heart Rate 68 /min 08/25/2024 Height 60 in 08/25/2024 BMI 27.46 kg/m2 08/25/2024 Encounters Encounter Location Date Provider Diagnosis [facility] [address] [facility] [address] [phone] 08/25/2024 Arjun Barrett Adult general medica l [...] neuropathy, unspecified whether nursing home insulin use (ICD-10 - E11.40) 08/25/2024 BMI [...] assessment, Depression screening and Bladder control screening. Pending Test Test Name Order Date Bone density 08/25/2024 Next Appt Details Follow Up: 6 Months, Reason: Progress Notes * Dagmar FLORESB: 1950 (74 yo F)Acc No.[id number]:08/25/2024 Annual Wellness Visit Patient: Scott ROMEODagmar Provider: Arjun Barrett M.D. :1950 A ge:74 Y S ex:Female Date:08/25/2024 Address:[address] [id number] Subjective: * Chief Complaints: * 1 . check up and Annual Wellness Visit. * HPI: H PI: Patient is here today for a scheduled check up and a Medicare Annual Wellness Visit and fasting labs. She has just returned from wintering in [place]. While in [place] she underwent left total hip and left [...] Colonoscopy/ diverticulosis/ [place] 2023, Left total knee/ [place] 2024, Left total hip/ [place] 2024. * [facility], [facility] ER-syncope 10/24/2019, [facility] ER - syncope 10/28/2019, [facility] ER - Fall- Broken Arm 12/30/2023. * Family History: F ather: 83 yrs, stroke, heart disease, COPD, diabetic. M other: 78 yrs, stroke, heart disease, COPD. 3 brother(s) , 4 sister(s) . 1 daughter(s) . . Brother with DM. Sister with pancreatic cancer. * Social History: C URRENT TOBACCO USE: No . C affeine: yes, frequency: diet dr pepper. Home smoke detector use: yes. Alcohol: Yes, [...] review and pick correct strength- formulation from [employer] options. If intended option is not shown, [...] *Please review and pick correct strength-formulation from [employer] options. 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 * Examination: G eneral [...] past 12 months. D epression Screening: D sarah depressed mood or anxiety. Describes emotional health [...] diabetes mellitus with diabetic neuropathy, unspecified whether rn long term care insulin use - E11.40 1 2. B AR 27.0-27.9,adult - Z68.27 1 3. P acemaker [...] A LP 116 38-126 - U/L * Segun Layla 08/25/2024 1 2:21:31 PM EDT >faxed to [...] I G# 0.01 - 10 3uL * Segun Layla 08/25/2024 1 2:22:38 PM EDT >faxed to registration Arjun Barrett 08/31/2024 04:54:17 PM EDT > See phone encounter ?LAB: H-Iron (Collection Date & Time - 08/25/2024 12:36 PM)?47* Value Reference Range F E 47 37-170 - ug/dL * Segun Layla 08/25/2024 1 2:21:00 PM EDT >faxed to registration Arjun Barrett 08/31/2024 04:54:17 PM EDT > See phone encounter 4.?Osteopenia? Refill Raloxifene HCl Tablet, 60 MG, TAKE 1 TABLET ONCE DAILY, 90 days, 90 Tablet, Refills 1.?Imaging: Bone density* Chhaya Murdock 08/29/2024 08:1 9:51 AM EDT > faxed to [facility] SchedulingAPPT 09/08/24 @9:30 5.?Depression with anxiety? Refill Venlafaxine HCl Tablet, [...] * Images: Billing Information: * Visit Code: 82629 Office Visit, Est Pt., Level 3. Modifiers: [...] of Arjun Barrett MD on 09/08/2024 at 09:15 AM EDT Sign off status: Pending * Provider: Arjun Barrett M.D. Date: 0 08/25/2024 Generated for Antonio maynard/Akira/Mariitting on: 0 09/08/2024 09:15 AM EDT History and Physical Notes * HPI (History of Present Illness) Category Sub-Category Detail Notes Category Not es HPI Patient is here today for a [facility] check up and a Medicare Annual Wellness Visit and fasting labs. She has just returned from wintering in [place]. While in [place] she underwent left total hip and left [...]
--- NOTE | 2024-09-08 09:11 | XR_ITS ---
FINAL REPORT CLINICAL HISTORY: SCREENING COMPARISON: None FINDINGS: Using L1-4, the bone mineral density of the spine is 1.115 g/cm2, corresponding to T-score of 0.6, within normal limits. Using the right forearm, the bone mineral density of the 1/3 is 0.527 g/cm2, corresponding to a T-score of -2.8, consistent with osteoporosis. Using the right hip, the bone mineral density of the femoral neck is 0.665 g/cm2, corresponding to a T-score of -2.3, consistent with osteopenia. FRAX 10 year fracture risk is 35% for a hip fracture and 52% for a major osteoporotic fracture. NOTE: T-score: Standard deviation compared with peak bone mass of young adult mean. *Following the recommendations of the International Society of Bone densitometry, classification of hip BMD is based on the lower of two T-scores; total hip or femoral neck. IMPRESSION: Diminished bone mineral density consistent with osteoporosis. Reviewed, Interpreted and Dictated by Richie Randall MD Transcribed by Sandra Erwin Authenticated and [facility]
--- OUTSIDE RECORDS SUMMARY | 2024-09-08 09:15 | XMS_ITS | Encounter Summary ---
Author Organization Healthcare Address [address] [place] [address] Care Team Providers Care Diesel Tractor Engine Mechanic Name Role Phone Charles Barrett MD Primary Care Provider +1- [phone] Bozena Milan LPN Unavailable Unavailable Encounter Details Date Type Department Care Team (Late st Contact Info) Description 08/12/2021 Orders Only External Location [address] [place] [address] Provider, External Social History Tobacco [...] Description 11/23/2024 11:40 AM EDT Office Visit [facility] [place] [address] [facility]. [address] [phone] Indu Grimes MD [address] [place] [address] 12/08/2024 9:40 AM EDT Office Visit [facility] [address] [facility]. [address] [phone] Sylvester Farr MD [address] [place] [address] documented as of this encounter [...] on filedocumented in this encounter Care Teams Diesel Tractor Engine Mechanic Relationship Specialty Start Date End Date Charles Barrett MD [address] [place] [address] PCP - General 09/11/21 Bozena Milan LPN TCM Nurse 11/24/23 12/24/23 documented as of this encounter
--- OUTSIDE RECORDS SUMMARY | 2024-09-08 09:15 | XMS_ITS | Encounter Summary ---
Author Organization Healthcare Address [address] [place] [address] Care Team Providers Care Manager Utility Name Role Phone Charles Barrett MD Primary Care Provider +1- [phone] Bozena Milan LPN Unavailable Unavailable Encounter Details Date Type Department Care Team (Late st Contact Info) Description 07/31/2021 Orders Only External Location [address] [place] [phone] Provider, External Social History Tobacco Use Types [...] Description 11/23/2024 11:40 AM EDT Office Visit [facility] [place] [address] [facility] [phone] Indu Grimes MD [address] [place] [id number] 12/08/2024 9:40 AM EDT Office Visit [facility] [address] [facility] [phone] Sylvester Farr MD [address] [place] [address] documented as of this encounter [...] on filedocumented in this encounter Care Teams Manager Utility Relationship Specialty Start Date End Date Charles Barrett MD [address] [place] [address] PCP - General 09/11/21 Bozena Milan LPN TCM Nurse 11/24/23 12/24/23 documented as of this encounter
--- OUTSIDE RECORDS SUMMARY | 2024-09-08 09:16 | XMS_ITS | Patient Health Record ---
Author Organization [facility] Address [address] [place], [place] [id number] Care Team Providers Care Engraving Supervisor Name Role Phone BLANCA HERNANDEZ Primary Care Provider [phone] Reason For Referral No Information Plan Of Treatment No Information Insurance Providers Payer Name Payer Address Payer Phone Subscriber Number Group Number Insured Name Patient Relationship to Insured Coverage Start Date Coverage End Date [employer] [place] [employer] [address] [address] [place] [address] [id number] PART A ONLY IDA MOTLEY Other [facility] [address] [place] [address] [phone] [id number] null, null Other [facility] [address] [place] [address] [phone] [id number] null, null Other
--- OUTSIDE RECORDS SUMMARY | 2024-09-08 09:16 | XMS_ITS | Data Portability ---
Author Organization [place] [facility], autoContract Address [address] [address] [address] [place] [address] Care Team Providers Care Case Assistant Name Role Phone MAX LOPEZ Primary Care [...] will be restricted to a homebound status. [facility] will be directed to assist the patient post operatively in their home startin04/22/2023 Patient will start outpatient physical therapy at [facility] on 05/07/2023 No history of DVT [...] with the pre-admission process at the hospital. [email or web address] Not available 04/10/2023 10:05:05 Plan of Treatment Reminders Order Date Submit Date Provider Last Modified By Organization Details Last Modified Time Details Appointments None recor ded. Lab None recor ded. Referral physi phyllis thera pist refer ral 2023 024 [facility], [address], [address], [place], [address], 4 07:32:54 physi phyllis thera pist refer ral - Outpa tient PT for ROM, stren gthen ing and anti- infla mmato ry 2-3x week for 4-6 weeks 2023 024 [facility] (Referral), [address], [place], [address], 4 10:58:21 healt h home refer ral - Start Skill ed Nursi ng/Ph ysica l Sulema py, as direc irasema, 2 weeks , Notes : START 2023 [facility], as direc irasema, 2 weeks post sx, Notes : START [email or web address] [place] [address], [address], [address], [place], [address], 4 10:13:15 physi phyllis thera pist refer ral - Start Outpa tient LE PT for ROM, stren gthen ing and anti- infla mmato ry modal ities 2-3x week for 4-6 weeks . START : [facility] ion 2023 024 [facility] (Referral), [address], [place], [address], 4 14:24:22 Procedures None recor ded. Surgeries None recor ded. Imaging XR, wrist , 3 or more view 2023 024 [facility][note 2] [facility], [address], [place], [address], 4 00:38:31 XR, wrist , 3 or more view 2023 024 [facility][note 2] [facility], [address], [place], [address], 4 22:21:29 XR, knee, 3 view 2023 024 [email or web address] [facility], [address], [address], [place], [address], 4 12:18:53 Medication Orders trama dol 50 mg table t 2023 024 [facility], [address], [address], 4 11:45:54 amoxi cilli n 500 mg capsu le 2023 024 [facility], [address], [address], 4 11:45:53 trama dol 50 mg table t 2023 024 [facility], [address], [address], 4 08:27:11 Perco cet 5 mg-32 5 mg table t 2023 024 [email or web address] [facility], [address], [address], 4 08:26:03 Patient TargetsNo targets recorded. Patient Instructions Encounter Date Encounter Id Patient Instructions Last Modified By Organization Details Last Modified Time 05/08/2023 [id number] Swelling and stiffness may last up to [...] the incision. Not available 05/05/2023 13:13:33 06/10/2023 [id number] Swelling and stiffness may last up to [...] or any scar treatment to the incision. [email or web address] Not available 06/10/2023 11:46:11 Reason for Referral Health Home Referral for Mec hanical complication of internal joint prosthesis [facility], as directed, 2 weeks, Notes: START 04/22/2023[facility], as directed, 2 weeks post sx, Notes: START 04/22/2023 Referring Physician: [facility], Encounter Date: 04/10/2023 Physical Therapist Referral for Mechanical complication of internal joint prosthesis Start Outpatient LE PT for ROM, strengthening and anti-inflammatory modalities 2-3x week for 4-6 weeks. START:05/07/2023 [place] location Referring Physician: [facility], Encounter [...] 3 view No observ ation record ed. [facility] [address] [address] [address], [place], [address], 06/10/2023 11:11:13 01/18/20 24 01/18/2024 imagi ng/di agnos tic resul t No observ ation record ed. [email or web address] [facility] [address] [place], [address], 01/19/2024 10:18:50 01/20/20 24 XR, wrist , 3 or more view No observ ation record ed. [facility] [address] [address] [address], [place], [address], 01/21/2024 14:08:19 02/11/20 24 XR, wrist , 3 or more view No observ ation record ed. [email or web address] [facility] [address] [address] [address], [place], [address], 02/11/2024 16:45:25 Result Notes None recorded. 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 301795567 Active 2023 Rod murguia [place] [facility] 4 08:09:26 Pain of right knee joint 54326878421 4100 Active 2023 Rod murguia [place] [facility] 4 08:09:26 Osteoarth ritis of right knee joint 23972548309 9100 Active 2023 Faby Bonilla, RADHA [address] [address],[address], [place], [address] , [facility] 4 13:13:34 Closed Colles' fracture 748942395 Active 2022 Colles' fracture of right radius, initial encounter for closed fracture; W/U Status: confirmed Not Available [facility] 4 09:55:36 Trochante lilly bursitis of right hip 15839421612 9100 Active 2021 Trochante lilly bursitis, right hip; W/U Status: confirmed Not Available [facility] 4 09:55:38 Degenerat ion of lumbar intervert ebral disc 38817517 Active 2021 Other intervert ebral disc degenerat ion, lumbar region; W/U Status: confirmed Not Available [facility] 4 09:55:38 Pain of right hip joint 96341181661 9102 Active 2021 Pain in right hip; W/U Status: confirmed Not Available [facility] 4 09:55:38 Pain of right wrist 57860811281 9100 Active 2022 Pain in right wrist; W/U Status: confirmed Not Available [facility] 4 09:55:38 Idiopathi c osteoarth ritis 072699916 Active 2022 Unilatera l primary osteoarth ritis, right knee; W/U Status: confirmed Not Available [facility] 4 09:55:39 Pain of left wrist 10836529978 9102 Active 2023 [facility] 4 14:17:24 Problem Notes None recorded. 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 Procedure Notes None recorded. Medical Equipment None Reported. Allergies Allergen ID Allergen Name Allergen Category Reaction Reaction Severity Criticality Documentation Date Start Date Code Code System Note Provider Name and Address Organization Details Recorded Time 2547 codeine medicatio n itching Not available Not available 04/10/2023 2670 RxNorm Faby Adryan Reddyt, [facility] [address] [address],[address], [place], [address], [facility] 4 10:02:14 2548 Dilaudid medicatio n itching Not available Not available 04/10/2023 58033 3 RxNorm Faby Adryan Reddyt, [facility] [address] [address],[address], [place], [place], [address] [place] [address], [facility] 4 10:02:19 76785 Dilaudid medicatio n itching Not available Not available 01/01/2024 57806 3 RxNorm React ion: itchi ng; Not Available [facility] 4 10:02:40 73962 codeine sulfate medicatio n itching Not available Not available 01/01/2024 89417 RxNorm React ion: itchi ng; Not Available [facility] 4 10:02:40 Medications Name Sig Start Date [...] BY MOUTH THREE TIMES A WEEK (THURSDAY, AND THURSDAY) FOR 15 DAYS 05/07 completed [...] Body mass index (BMI) Body height Systolic And Diastolic Provider Name and Address Organization Details Last Updated DateTime 04/10/2023 85246.67 g 28 kg/m2 154.94 cm 138/78 mm[Hg] Faby Bonilla NP [address] [address],[address], [place], [address] - [facility] 04/10/2023 09:35:10 Date Recorded Body height Body mass index (BMI) Body weight Systolic And Diastolic Provider Name and Address Organization Details Last Updated DateTime 05/08/2023 154.94 cm 28 kg/m2 40548.67 g 118/68 mm[Hg] Caron Murdock [facility] 05/08/2023 08:19:28 Date Recorded Systolic And Diastolic Provider Name and Address Organization Details Last Updated DateTime 06/10/2023 110/62 mm[Hg] Faby Bonilla, [facility] [address] [address],[address], [place], [address] 06/10/2023 11:32:28 Date Recorded Body height Body mass index (BMI) Body weight Provider Name and Address Organization Details Last Updated DateTime 06/10/2023 154.94 cm 28 kg/m2 00183.67 g Caron Murdock [facility] 06/10/2023 11:13:29 Date Recorded Body height Body mass index (BMI) Body weight Systolic And Diastolic Provider Name and Address Organization Details Last Updated DateTime 01/21/2024 154.94 cm 27.6 kg/m2 98799.49 g 132/80 mm[Hg] Lizette Harry [facility] 01/21/2024 15:18:14 Date Recorded Body height Body mass index (BMI) Body weight Heart rate Oxygen saturation Oxygen saturation in Arterial blood by Pulse oximetry Respiratory rate Systolic And Diastolic Provider Name and Address Organization Details Last Updated DateTime 154.94 cm 27.6 kg/m2 45750.4 9 g 70 /min 98 % 98 % 16 /min 110/68 mm[Hg] Tiesha Reynolds [facility] 15:59:29 Social History None recorded. Functional Status Question Answer Note LastModified by Organizat ion Details LastModified Time How many times per week do you consume alcohol? 1-2 times per week [email or web address] Information not available 01/20/2024 What is your level of alcohol consumption? Occasional [email or web address] Information not available 04/10/2023 Mental Status None recorded. Family History Relationship Description Onset Age of this Age Resolved Age Notes LastModified by Organization Details LastModified Time Brother Diabetes mellitus [email or web address] Not available 2023 10:42:27 Father Heart disease [email or web address] Not available 2023 10:42:32 Father Cerebrovascu lar accident [email or web address] Not available 04/2023 10:42:39 Mother Heart disease [email or web address] Not available 2023 10:42:55 Mother Cerebrovascu lar accident [email or web address] Not available 04/2023 10:43:03 Mother Family history of malignant neoplasm [email or web address] Not available 2023 10:43:10 Medical History Condition Response Coronary Artery Disease Y Afib Y Seizures/Epilepsy Y Reflux/GERD Y Heart Failure Y Gynecological HistoryNo gynecological history recorded. Obstetrics History GPAL:G 0 P 0 0 0 0 Past Encounters Encounter ID Performer Location Encounter Start Date Encounter Closed Date Diagnosis/Indication Diagnosis SNOMED-CT Code Diagnosis ICD10 Code Diagnosis Note [id number] Faby Bonilla NP [facility] [address] [facility] [address] [place] [id number] 04/10/2023 09:25:13 04/10/2023 10:13:14 Pain of right knee joint 9968647849 38845 M25.561 Mechanical complication of internal joint prosthesis 814869692 T84.092D [id number] Faby Bonilla NP [facility] [address] [facility] [address] [place] [address] 05/08/2023 08:10:33 05/08/2023 08:33:03 Osteoarthritis of right knee joint 8494281257 83130 M17.11 Pain of ri ght knee joint 0430512795 32985 M25.561 Mechanical complication of internal joint prosthesis 193131875 T84.092D Continue DVT prophylaxi s for 2 [...] istrips will fall off within 1 week. [id number] Faby Bonilla NP [facility] [address] [facility] [address] [place] [address] 06/10/2023 11:11:02 06/10/2023 11:50:59 Osteoarthritis of right knee joint 3058808352 18639 M17.11 Pain of ri ght knee joint 3169635127 14957 M25.561 Mechanical complication of internal joint prosthesis 696008921 T84.092D May resume golfMay driveMay get in pool/hot tub/bath tubMay apply lotions/cr eamsActivi ty as toleratedN o dental work for 6 more weeksConti nue to Ice as needed for swelling.S tanding 3 views of the right knee shows an intact prosthesis in satisfacto ry position and alignment. [id number] Crispin Tai MD [facility] [address] [address],[address] [place] [id number] 01/21/2024 14:06:54 01/21/2024 15:42:04 Pain of left wrist 1583391152 76473 M25.532 Her office radiograph s reveal a minimally displaced DRF with some interval healing. I have recommende d continued casting for 3 weeks follow by PT at [facility]. Closed Col les' fracture 127086392 S52.531A S52.532A [id number] Crispin Tai MD [facility] [address] [facility] [address] [place] [address] 02/11/2024 14:47:53 02/11/2024 16:52:02 Pain of left wrist 6223827546 95443 M25.532 Her office radiograph s reveal a healed and minimally displaced DRF. I have recommende d PT ([facility]). Final f/u in 2 months Closed Col les' fracture 127425973 S52.531A S52.532A Health Concerns Section Related Observation LastModified by Organization Detai ls LastModified Time None Recorded Concern Status LastModified by Organization Details LastModified Time None Recorded Advance Directives Directive None Recorded Payers Insurance Date Sequence Insurance Name Policy Number Policy Chavarria Covered Member ID Chavarria Member ID Guarantor Name 04/15/2024 1 [place] Dagmar Flores [id number] Dagmar Flores 04/15/2023 2 [place] 106 Nik Flores [id number] Dagmar Flores 04/15/2024 2 [place] 106 Nik Flores [id number] Dagmar Flores Notes Date Note Type Note [...] today for a pre operative appointment for RTK GLORIA SMITH ZIMMER 04/21/2023 after failed conservative care which includes:, NSAID's, activity modifications, and weight reduction Faby Bonilla NP [address] [address],[address] [address], [facility] 04/10/2023 10:44:57 05/08/2023 text/html Knee- Eda ambrose bypatient.Location :right Quality:aching; stabbing; dull Severity:pain level 4/10 Duration:continuou s since onset Timing:chronic Alleviating Factors:ice; rest; OTC medication; narcotics; NSAIDs Aggravating Factors:standing; bending/squatting; going from sit to stand; upstairs Associated Symptoms:no tingling; no redness; no instability; no drainage; no fever;weakness;num bness;swelling;war mth Faby Bonilla NP [address] [facility] [address] [place] [address], [facility] 05/08/2023 08:28:35 06/10/2023 text/html Knee- JAnna d bypatient.Location :right Quality:aching; stabbing; dull Severity:pain level 5/10 Duration:continuou s since onset Timing:chronic Alleviating Factors:ice; rest; OTC medication; narcotics; NSAIDs Aggravating Factors:standing; bending/squatting; going from sit to stand; upstairs Associated Symptoms:no tingling; no redness; no instability; no drainage; no fever;weakness;num bness;swelling;war mth Faby Bonilla NP [address] [facility] [address], [place], [address], [facility] 06/10/2023 11:46:55 01/21/2024 text/html Wrist/HandReport ed bypatient.Hand Dominance:right Location:left Quality:aching; dull Severity:pain level 5/10 Fracture History Pain is located in the left wrist. The patient is s/p a fall on 12/30/23 out of her motor home in [facility]. She was was seen by an Orthopedic surgeon there and placed in a cast. LHD. Taking Tylenol. Crispin Tai MD [address] [address],[address], [place], [address], [facility] 01/21/2024 15:38:03 02/11/2024 text/html Wrist/HandReport ed bypatient.Hand Dominance:right Location:left Quality:aching; dull Severity:pain level 4 5/10 Fracture HistoryPain is located in the left wrist. The patient is s/p a fall on 12/30/23 out of her motor home in [place]. She was was seen by an Orthopedic surgeon there and placed in a cast. She is tolerating the cast. Crispin Tai MD [address] [facility] [address], [place], [address], [facility] 02/11/2024 16:47:35 OBGyn Episode No OBEpisode recorded.
--- OUTSIDE RECORDS SUMMARY | 2024-09-08 09:16 | XMS_ITS | Patient Health Record ---
Author Organization [facility] Address [address] [address] Care Team Providers Care Survey Operations Director Name Role Phone Migration, Provider Unavailable Unavailable Reason For Referral No Information Encounters Encounter Location Date Provider Diagnosis [facility] [address] [address] 03/26/2024 Provider Migration [facility] [address] [address] 03/27/2024 Provider Migration Plan Of Treatment No Information Insurance Providers Payer Name Payer Address Payer Phone Subscriber Number Group Number Insured Name Patient Relationship to Insured Coverage Start Date Coverage End Date [facility] [address] [place] [address] [id number] TIESHA IDA Self - patient is the insured 9 6 Medicare Part B [address] GINETTE Cooper [id number] TIESHAANTONIIDA Self - patient is the insured 9 6
--- OUTSIDE RECORDS SUMMARY | 2024-09-08 09:17 | XMS_ITS | Encounter Summary ---
Author Organization Healthcare Address [address] [place] [address] Care Team Providers Care Vessel Engineer Name Role Phone Charles Barrett MD Primary Care Provider +1- [phone] Encounter Details Date Type Department Care Team (Late st Contact Info) Description 07/26/2024 Telephone Cardiac Imaging [address] [place] [address] Tata Johnson Social History Tobacco Use Types [...] often do you attend chur ch or hinduism services? More than 4 times per year 11/25/2023 Do you belong to any clubs o r organizations such as buddhist groups, unions, fraternal or athletic groups, or [...] monitor not connecting with pacemaker. Please call [employer] at [phone] or call [facility] [phone] for assistance. Thank you. documented in this encounter Plan of Treatment Upcoming Encounters Date Type Department Care Team (Late st Contact Info) Description 11/23/2024 11:40 AM EDT Office Visit [facility] [place] Crenshaw [address] [phone] Indu Grimes MD [address] [place] [address] 12/08/2024 9:40 AM EDT Office Visit [facility] [address] [address] Sylvester Farr MD [address] [place] [address] documented as of this encounter Visit Diagnoses Not on filedocumented in this encounter Additional Health Concerns Assessment Noted Time A fall risk assessment has been complete d for the patient 01/07/2024 11:10 AM EDT A Body Mass Index follow-up plan has been documented for the patient 01/07/2024 11:52 AM EDT documented as of this encounter Care Teams Vessel Engineer Relationship Specialty Start Date End Date Charles Barrett MD [address] [place] [address] PCP - General 09/11/21 documented as of this encounter
--- OUTSIDE RECORDS SUMMARY | 2024-09-08 09:17 | XMS_ITS | Encounter Summary ---
Author Organization Healthcare Address [address] [place] [address] Care Team Providers Care Talent Recruiter Name Role Phone Charles Barrett MD Primary Care Provider +1- [phone] Encounter Details Date Type Department Care Team (Late st Contact Info) Description 08/05/2024 Telephone Cardiac Imaging [address] [place] [address] Tata Johnson Social History Tobacco Use Types [...] often do you attend chur ch or restoration services? More than 4 times per year 11/25/2023 Do you belong to any clubs o r organizations such as gnosticism groups, unions, fraternal or athletic groups, or [...] place to sleep or slept in a alf (including now)? No 11/23/2023 Utilities Answer Date [...] device report 08-05-2024 and attached. Please call [employer] at [phone] or call [facility] [phone] for assistance. Thank you. documented in this encounter Plan of Treatment Upcoming Encounters Date Type Department Care Team (Late st Contact Info) Description 11/23/2024 11:40 AM EDT Office Visit [facility] Emmet Kingsley [address] [address] Indu Grimes MD [address] [place] [address] 12/08/2024 9:40 AM EDT Office Visit [facility] Emmet [place] [address] [address] Sylvester Farr MD [address] [place] [address] documented as of this encounter Visit Diagnoses Not on filedocumented in this encounter Additional Health Concerns Assessment Noted Time A fall risk assessment has been complete d for the patient 01/07/2024 11:10 AM EDT A Body Mass Index follow-up plan has been documented for the patient 01/07/2024 11:52 AM EDT documented as of this encounter Care Teams Talent Recruiter Relationship Specialty Start Date End Date Charles Barrett MD [address] [place] [address] PCP - General 09/11/21 documented as of this encounter
--- OUTSIDE RECORDS SUMMARY | 2024-09-08 09:17 | XMS_ITS | Patient Health Record ---
Author Organization [employer], [facility] Address [address] [place] [address] Care Team Providers Care Hockey Player Name Role Phone Joy PUENTES, Fran Primary Care Provider Piero Miranda MD, [facility] Unavailable Allergies Allergen (clinical drug ingredient) Drug/Non [...] ONCE DAILY Oral; Duration: 90 Days Active Sucralfate 1 GM Oral; Duration: 30 Days Active Celecoxib 100 MG TAKE ONE CAPSULE BY MOUTH TWICE A DAY WITH FOOD Oral; Duration: Not Available Active Albuterol Sulfate HFA 108 (90 Base) MCG/ACT 1 puff as needed Inhalation every 4 hrs 05/03/2024 Active Omeprazole 40 MG Oral; Duration: 30 Days Active ALPRAZolam 0.25 MG Oral; Duration: 10 Days Active Ranolazine ER 1000 MG Oral; Duration: 90 Days Active Midodrine HCl 5 MG Oral; Duration: 30 Days Active Albuterol Sulfate (2.5 MG/3ML) 0.083% USE 1 VIAL IN NEBULIZER EVERY 6 HOURS NEEDED Inhalation; Duration: 15 Days Active Montelukast Sodium 10 MG TAKE 1 TABLET O NCE DAILY Oral; Duration: 90 Days Active levETIRAcetam 500 MG Oral; Duration: 90 Days Active Metoprolol Tartrate 25 MG Oral; Duration: 90 Days Active Eliquis 5 MG Oral; Duration: 90 Days Active Gabapentin 300 MG Oral; Duration: 90 Days Active Trelegy Ellipta 200-62.5-25 MCG/ACT USE 1 INHALATION ORALLY DAILY. RINSE MOUTH AFTER EACH USE. Inhalation; Duration: 30 Days Active DULoxetine HCl 30 MG Oral; Duration: 30 Days Active Venlafaxine HCl 37.5 MG Oral; Duration: 30 Days Active Social History Tobacco Use: [...] Anemia due to chronic blood loss (disorder) (929595844) Iron deficiency anemia secondary to blood loss (chronic) (D50.0) 05/03/19 Active confirmed Problem Gastro-esophageal reflux disease without esophagitis (817713124) Gastro-esophag eal reflux disease without esophagitis (K21.9) 06/01/19 Active confirmed Problem Gastroduodenitis (831026537) Gastritis, unspecified, without bleeding (K29.70) 06/01/19 Active confirmed Problem Heartburn (71042941) Heartburn (R12) 05/03/19 Active confirmed Problem Dysphagia (42975549) Dysphagia, unspecified (R13.10) 06/01/19 Active confirmed Problem History of bariatric surgical procedure (985621336) Bariatric surgery status (Z98.84) 06/01/19 Active confirmed Vital Signs Heart Rate 80 /min 05/31/2024 Blood pressure diastolic 77 mm Hg 05/31/2024 Height 61 in 05/03/2024 Blood pressure systolic 140 mm Hg 05/31/2024 Weight 145 lbs 05/31/2024 BMI 27.39 kg/m2 05/03/2024 Procedures Procedure Date Ordered Date Performed Result Body Sit e EGD 05/03/2024 N/A Encounters Encounter Location Date Provider Diagnosis [facility] [address] [place] [address] 05/05/2024 Negrojesus Miranda [facility], [facility] [address] [place] [address] 05/31/2024 Negro Ferdinandtangtracy Gastro-esophageal reflux disease without esophagitis K21.9 ; Gastritis, unspecified, without bleeding K29.70 ; Dysphagia, unspecified R13.10 and Bariatric surgery status Z98.84 [facility], [facility] [address] [place] [address] 05/03/2024 Negrojesus Miranda Iron deficiency anemia secondary [...] foods. Also discussed with the patient the alf side effects of PPI use which include [...] Also discussed with the patient the terminal system operator side effects of PPI use which include [...] Date EGD 05/03/2024 Next Appt Details Provider Name:Negrotom Villasenor , 09/29/2028 11:00:00 AM, [address], [place], [address], Insurance Providers Payer Name Payer Address Payer Phone Subscriber Number Group Number Insured Name Patient Relationship to Insured Coverage Start Date Coverage End Date MEDICARE [address] [place] [address] [phone] [id number] Sandra, Dagmar Self - patient is the insured [facility] ([facility]) [address] [place] [address] [id number] Dagmar Flores Self - patient is the [...]
--- OUTSIDE RECORDS SUMMARY | 2024-09-08 09:17 | XMS_ITS | Encounter Summary ---
Author Organization Healthcare Address [address] [place] [address] Care Team Providers Care Religious Ritual Slaughterer Name Role Phone Charles Barrett MD Primary Care Provider +1- [phone] Encounter Details Date Type Department Care Team (Late st Contact Info) Description 08/02/2024 Telephone [facility] [address] [facility] [address] [place] [address] Indu Grimes MD [address] [place] [address] Social History Tobacco Use Types [...] often do you attend chur ch or restorationist services? More than 4 times per year 11/25/2023 Do you belong to any clubs o r organizations such as anabaptism groups, unions, fraternal or athletic groups, or [...] the 07/27 appointment. Best contact number: Other: [phone] Optimal time of day to reach caller: [...] will receive notification of the communication/outcome via [employer] documented in this encounter Plan of Treatment Upcoming Encounters Date Type Department Care Team (Late st Contact Info) Description 11/23/2024 11:40 AM EDT Office Visit [facility] [place] [address] [address] Indu Grimes MD [address] [place] [address] 12/08/2024 9:40 AM EDT Office Visit [facility] [address] [address] Sylvester Farr MD [address] [place] [address] documented as of this encounter Visit Diagnoses Not on filedocumented in this encounter Additional Health Concerns Assessment Noted Time A fall risk assessment has been complete d for the patient 01/07/2024 11:10 AM EDT A Body Mass Index follow-up plan has been documented for the patient 01/07/2024 11:52 AM EDT documented as of this encounter Care Teams Religious Ritual Slaughterer Relationship Specialty Start Date End Date Charles Barrett MD [address] [place], [place] [address] PCP - General 09/11/21 documented as of this encounter
--- OUTSIDE RECORDS SUMMARY | 2024-09-08 09:17 | XMS_ITS | Clinical Summary ---
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 023 Pacemaker generator end of life 11/12/2022 Osteoarthritis of right knee 05/27/2022 Arthritis of right knee 05/22/2022 Overview (12/03/2023): Added automatically from request for surgery [id number] 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 Overview (07/14/2024): Unilateral primary [...] (11/06/2021): Added automatically from request for surgery [id number] SSS (sick sinus syndrome) 09/30/2021 Hypotension, unspecified [...] Acute diastolic heart failure 08/28/2021 08/28/2021 Old OK (myocardial infarction) 08/28/2021 08/07/2022 Encounters Date Type Department Care Team Description 08/05/2024 Telephone [facility] [address] [place] [address] Tata Johnson 08/02/2024 Telephone [facility] [place] [facility] [address] [place] [address] Indu Grimes MD 07/26/2024 Telephone [facility] [address] [place] [address] Tata Johnson 07/11/2024 3:35 PM EDT - 07/11/2024 11:59 PM EDT Hospital Encounter [facility] [address] [place] [address] Pacemaker Discharge Disposition: Home or Self Care [...] week 11/25/2023 How often do you attend [facility] or sikh services? More than 4 times per year 11/25/2023 Do you belong to any clubs o r organizations such as religious groups, unions, fraternal or athletic groups, or [...] the past 12 months has th e [employer], gas, oil, or water company threatened to [...] Description 11/23/2024 11:40 AM EDT Office Visit [facility] [address] [address] Indu Grimes MD [address] [place] [address] 12/08/2024 9:40 AM EDT Office Visit [facility] [address] [place] [address] Sylvester Farr MD [address] [place] [address] Health Maintenance Due Date Last Done Comments [facility]-Bone Density Scan 1950 [facility]-Medicare Annual Wellness (AWV) 1950 [facility]-Infant/Child/Adol SDOH Screenings 1950 Diabetes: Dental Exam 1958 [facility]-Zoster Vaccines (2 of 3) 12/06/2008 10/11/2008 [facility]-RSV Vaccine: 60+ Years or (1 - 1-dose 75+ series) 06/22/2023 [id number] Vaccine ( season) 2024 11/11/2023, 11/24/2022, 02/05/2022, Additional history exists [facility]- SDOH Screenings 05/22/2024 [facility]-Adult SDOH Screenings 05/22/2024 11/23/2023 [facility]-Diabetes: Hemoglobin A1C 05/22/2024 11/23/2023 [facility]-Influenza Vaccine (#1) 11/07/202411/10, 11/24/2022, 12/02/2021, Additional history exists [facility]-Depression Screening 01/06/2025 01/07/2024 [facility]-DTaP,Tdap,and Td Vaccines (3 - Td or Tdap) 10/14/2027 10/13/2017, 09/09/2004 [facility]-Pneumococcal Vaccine: 50+ Years Completed 09/16/2022, 10/13/2017, 10/06/2006 [facility]-Breast Cancer Screening Discontinued 11/02/2023, 11/02/2023, 10/30/2022, Additional history exists [facility]-Hepatitis C Screening Completed [...] this topic Medical Devices Implanted Type Area Cyber Incident Responder Device Identifier Shelf Expiration Date Model / Serial / Lot Pacemaker Assurity Mri Dr - [id number] Implanted:Qty: 1 on 11/13/2022 by Indu Grimes MD at [facility] [id number] 03/08/2024 [id number] / [id number] Envelope Tyrx Pm Medium - [id number] Implanted:Qty: 1 on 11/13/2022 by Indu Grimes MD at [facility] [id number] 08/02/2023 [id number] / / [id number] Procedures Procedure Name Priority Date/Time Associated Diagnosis [...] Modality Other Narrative 07/11/2024 3:51 PM EDT [facility] - Device Clinic Remote CIED [...] See copy of vendor report in Media Elyssa Chavez Pb ALMAZANN CV IMPLANTABLE CARDIAC DEV ICE PROCEDURES Final Result * (ABNORMAL) Hemoglobin A1c (11/23/2023 5:15 AM EDT) Hemoglobin A1c 6.4(H) <5.7 % 11/23/2023 6:44 AM EDT [facility] Blood Venous blood specimen / Unknown Venipuncture / Unknown 11/23/2023 5:15 AM EDT 11/23/2023 5:47 AM EDT Narrative [facility] - 11/23/2023 6:44 AM EDT HA1C Interpretive Data: Diagnosis of Diabetes: Diabetic > or = 6.5% Pre-diabetic 5.7 to 6.4% Non-diabetic < or = 5.6% Glycemic Targets for Type I and Type II Diabetics: Non- Adults <7.0% Adults <6.0% Children and Adolescents <7.5% Source: [place] [employer]. Standards of medical care in diabetes,2017. Diabetes Care.2017:40 (suppl 1):S1-S135. HbA1c assay performed by an ion-exchange chromatography method that is certified traceable to the DCCT. us Zackary Gao MD LAB BLOOD ORDERABLES Final Result [facility] [address] [place] [address] * Hepatitis C Antibody - ED (11/22/2023 11:36 AM EDT) Hepatitis C Antibody Negative Negative 11/22/2023 12:54 PM EDT [facility] Blood Venous blood specimen / Unknown Venipuncture / Unknown 11/22/2023 11:36 AM EDT 11/22/2023 12:13 PM EDT us Mono Ray MD LAB BLOOD ORDERABLES Final Result Performing Organization Address City/[facility] Co de Phone Number [facility] [address] [place] [address] from Last 3 Months or Most Recently Relevant to Health Maintenance Insurance MEDICARE [facility] Advance Directives * Full Code (Latest Code Status on File) Date Activated Date Inactivated Comments 11/22/2023 4:59 PM 11/23/2023 7:24 PM Question Answer Comments Patient has decision-making capacity? Yes * Full Code Date Activated Date Inactivated Comments 11/13/2022 1:33 PM 11/13/2022 6:08 PM Question Answer Comments Patient has decision-making capacity? Yes Care Teams Concrete Block Molder Relationship Specialty Start Date End Date Charles Barrett MD [address] [place] [id number] PCP - General 09/11/21
--- OUTSIDE RECORDS SUMMARY | 2024-09-08 09:17 | XMS_ITS | Clinical Summary ---
Author Organization [facility] ([place], [place], [place], [place]) Address [address] [place] [address] Care Team Providers Care Cardiology Clinical Nurse Specialist Name Role Phone Charles Barrett MD Primary Care Provider +1- [phone] Allergies Active Allergy Reactions Criticality Noted Date [...] 0.6 oz pur e alcohol) wine weekly Food Insecurity Answer Date Recorded Food run [...] Date Jarrett rded Speak language other than Eritrean at home Not on file 03/27/2023 Want help with school or training Not on file 03/27/2023 Substance Use Answer Date Recorded Used [...] Info) Description 11/03/2024 3:45 PM EDT Appointment [address] [address] Health Maintenance Due Date Last [...] the next mammogram. At our facility, a [place] marker is positioned over a visible skin [...] cancer. COMPARISON STUDY: 2022 through 2014 from [facility] FINDINGS: Craniocaudal and mediolateral oblique images of [...] A B BLUE CROSS/BLUE SHIELD Care Teams Cardiology Clinical Nurse Specialist Relationship Specialty Start Date End Date Charles Barrett MD [address] [facility] [address] [place] [address] PCP - General Family Medicine 11/19/22
--- OUTSIDE RECORDS SUMMARY | 2024-09-08 09:17 | XMS_ITS | Encounter Summary ---
Author Organization Healthcare Address [address] [place] [address] Care Team Providers Care Meat Process Worker Name Role Phone Charles Barrett MD Primary Care Provider +1- [phone] Encounter Details Date Type Department Care Team [...] week 11/25/2023 How often do you attend [facility] or nondenominational services? More than 4 times per year [...] place to sleep or slept in a group home (including now)? No 11/23/2023 Utilities Answer [...] Description 11/23/2024 11:40 AM EDT Office Visit [facility] [address] [place] [address] Indu Grimes MD [address] [place] [address] 12/08/2024 9:40 AM EDT Office Visit [facility] [address] [facility] [place] [address] Sylvester Farr MD [address] [place] [address] documented as of this encounter Visit Diagnoses Not on filedocumented in this encounter Additional Health Concerns Assessment Noted Time A fall risk assessment has been complete d for the patient 01/07/2024 11:10 AM EDT A Body Mass Index follow-up plan has been documented for the patient 01/07/2024 11:52 AM EDT documented as of this encounter Care Teams Meat Process Worker Relationship Specialty Start Date End Date Charles Barrett MD [address] [place] [address] PCP - General 09/11/21 documented as of this encounter
--- OUTSIDE RECORDS SUMMARY | 2024-09-08 09:17 | XMS_ITS | Referral Summary ---
Author Organization [employer] ([place], [place], [place], [place]) Address [address] [place] [address] Care Team Providers Care Middle School Professional Name Role Phone Charles Barrett MD Primary Care Provider +1- [phone] Allergies Active Allergy Reactions Criticality Noted Date [...] Date Jarrett rded Speak language other than Bahraini at home Not on file 03/27/2023 Want [...] Info) Description 11/03/2024 3:45 PM EDT Appointment [address] [address] Procedures Procedure Name Priority Date/Time Associated Diagnosis [...] the next mammogram. At our facility, a [place] marker is positioned over a visible skin [...] cancer. COMPARISON STUDY: 2022 through 2014 from [facility] FINDINGS: Craniocaudal and mediolateral oblique [...] Health Maintenance Insurance MEDICARE PART A B CROSS/BLUE SHIELD Care Teams Middle School Professional Relationship Specialty Start Date End Date Charles Barrett MD [address] [place] [address] PCP - General Family Medicine 11/19/22
--- OUTSIDE RECORDS SUMMARY | 2024-09-08 09:18 | XMS_ITS | Patient Health Record ---
[facility] [address] [place] [id number] Care Team Providers Care Manager Local Name Role Phone Arjun Barrett Primary Care Provider Dai Avalos Unavailable [phone] Angelica Cabrera Unavailable [phone] Allergies Allergen (clinical drug ingredient) Drug/Non Drug [...] Performing Lab: Notes/Report: FE 47 37-170 ug/dL X ray : Pelvis Reviewed date:12/21/2023 10:54:50 AM Interpretation:see hip x-ray Performing Lab: Notes/Report: see hip x-ray X ray : Hip, left Reviewed date:12/15/2023 09:09:34 AM Interpretation:degenerative changes Performing Lab: Notes/Report: degenerative changes X ray : Spine, lumbosacral Reviewed date:12/15/2023 09:09:25 AM Interpretation:degenerative changes Performing Lab: Notes/Report: degenerative changes Reason For Referral No Information Medications Medication SIG (Take, Route, Frequency, Duration) Notes Start Date End Date Status Ranolazine ER 500 MG 1 tablet Orally Twice a day Active Midodrine HCl 5 MG 1 tablet Orally Twice a day Active Metoprolol Tartrate 25 MG 1 tablet with food Orally once a day Active Latisse 0.03 % 1 diana applied topically once a day (at bedtime) 07/19/2020 Active Trelegy Ellipta 200-62.5-25 MCG/ACT 1 puff Inhalation Once a day Active Albuterol Sulfate 0.83MG/ML (2.5MG/3ML) 1 VIAL DIRECTED Q 4-6 HRS PRN PER NEBULIZER; Duration: 90 DAYS *Please review and pick correct strength-formulati on from [employer] options. If intended option is not shown, [...] 1 TABLET ONCE DAILY WITH FOOD Active Omeprazole 40 MG take 1 capsule Orally Once a day Active Raloxifene HCl 60 MG TAKE 1 TABLET ONCE DAILY; Duration: 90 days Active Eliquis 5 MG 1 tablet Orally twice daily; Duration: 90 days Active Montelukast Sodium 10 MG TAKE 1 TABLET ONCE DAILY; Duration: 90 days Active Vitamin D3 50 MCG [...] times a day; Duration: 90 days Active traMADol HCl 50 MG 1 tab(s) orally four times a day as needed 07/23/2022 Active Gabapentin 300 MG 1 cap(s) orally twice a day 02/12/2022 Active Nebulizer/Tubing/Mout hpiece - as directed 07/30/2023 Active Carafate 1 GM 1 tab(s) orally 4 times a day (before meals and at bedtime) 07/20/2020 Active Ipratropium-Albuterol 3/ 0.5/ 3 ML 3 ML TID *Please review and pick correct strength-formulati on from [employer] options. If intended option is not shown, discontinue and re-order from Quick Search* 07/31/2021 Active NEBULIZER SET UP FOR ADULT DIRECTED *Please review for potential replacement for e-prescription and drug interaction check* 07/31/2021 Active Immunizations Vaccine Route Administration Date Status [...] W/U Status Risk Notes Problem Coronary arteriosclerosis (28019113) ASCVD (arteriosclerotic cardiovascular disease) (I25.10) Active confirmed Problem Insomnia (612935991) Insomnia (G47.00) Active confirmed Problem Anemia (783343453) Anemia (D64.9) Active confir med Problem Asthma (660061011) Asthma (J45.909) Active conf irmed Problem Mixed anxiety and depressive disorder (671966504) Depression with anxiety (F41.8) Active confirmed Problem Seizure disorder (363120364) Seizure disorder (G40.909) Active confirmed Problem 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) Active confirmed Problem Chronic pain syndrome (642381814) Chronic pain syndrome (G89.4) Active confirmed Problem Chronic atrial fibrillation (772379116) Chronic atrial fibrillation (I48.2) Active confirmed Problem Heart disease (58367098) Heart disease, unspecified (I51.9) Active confirmed Problem Old myocardial infarction (9434843) History of [place] (myocardial infarction) (I25.2) Active confirmed Problem Cardiac pacemaker in situ (209739401) Pacemaker (Z95.0) Active confirmed Problem Primary osteoarthritis (338959444) Primary osteoarthritis involving multiple joints (M15.0) Active confirmed Problem Gastroesophageal reflux disease (111165895) Gastroesophageal reflux disease, esophagitis presence not specified (K21.9) Active confirmed Problem Dyslipidemia (945333101) Dyslipidemia (E78.5) Active confirmed Problem Transient ischemic attack (460165968) TIA (transient ischemic attack) (G45.9) Active confirmed Problem Artificial knee joint present (861028662734) Status post right knee replacement (Z96.651) Active confirmed Problem Asthma without status asthmaticus (48165741) Asthma, unspecified asthma severity, unspecified whether complicated, unspecified whether persistent (J45.909) Active confirmed Problem Diabetic peripheral neuropathy associated with type 2 diabetes mellitus (2599515181350) Type 2 diabetes mellitus with diabetic neuropathy, unspecified whether termite control technician insulin use (E11.40) Active confirmed Problem Chronic atrial fibrillation (157499453) Chronic atrial fibrillation (I48.20) Active confirmed Vital Signs Heart Rate 68 /min 08/25/2024 Blood pressure diastolic 70 mm Hg 08/25/2024 Height 60 in 08/25/2024 Blood pressure systolic 110 mm Hg 08/25/2024 Weight 140.6 lbs 08/25/2024 BMI 27.46 kg/m2 08/25/2024 Encounters Encounter Location Date Provider Diagnosis LATASHAA-Eric [address] [facility] [address] [place] [id number] 11/13/2023 [facility] L50.9 [facility] [address] [place] [id number] 12/14/2023 Dai Avalos Hip pain M25.559 [facility] [address] [place] [id number] 01/05/2024 Arjun Barrett Fall W19.XXXA and Ra dial fracture S52.90XA [facility] [address] [place] [id number] 08/25/2024 [facility] Arnold Adult general medica l examination Z00.00 ; Dyslipidemia E78.5 ; Anemia D64.9 ; Osteopenia M85.80 ; Primary osteoarthritis involving multiple joints M15.0 ; Depression with anxiety F41.8 ; Chronic atrial fibrillation I48.20 ; Asthma J45.909 ; Insomnia G47.00 ; Seizure disorder G40.909 ; Type 2 diabetes mellitus with diabetic neuropathy, unspecified whether termite control technician insulin use E11.40 ; BMI 27.0-27.9,adult Z68.27 ; Pacemaker Z95.0 and Gastroesophageal reflux disease, esophagitis presence not specified K21.9 [facility] [address] [place] [id number] 12/14/2023 [facility] [address] [place] [id number] 08/11/2024 [facility] [address] [place] [id number] 08/31/2024 Samy Arnold Assessments Encounter Date Diagnosis (ICD Code) Assessment Notes Treatment Notes Treatment Clinical Notes Section Notes 11/13/2023 Hives (ICD-10 - L50.9) Can continue [...] control screening. 08/25/2024 Anemia (ICD-10 - D64.9) 08/25/2024 Osteopenia (ICD-10 - M85.80) 08/25/2024 Primary osteoarthritis involving multiple joints (ICD-10 - M15.0) 08/25/2024 Depression with anxiety (ICD-10 - F41.8) 08/25/2024 Chronic atrial fibrillation (ICD-10 - I48.20) 08/25/2024 Asthma (ICD-10 - J45.909) 08/25/2024 Insomnia (ICD-10 - G47.00) 08/25/2024 Seizure disorder (ICD-10 - G40.909) 08/25/2024 Type 2 diabetes mellitus with diabetic neuropathy, unspecified whether intermediate insulin use (ICD-10 - E11.40) 08/25/2024 BMI 27.0-27.9,adult (ICD-10 - Z68.27) 08/25/2024 Pacemaker (ICD-10 - Z95.0) 08/25/2024 Gastroesophageal reflux disease, esophagitis presence not specified (ICD-10 - K21.9) Plan Of Treatment Pending Test Test Name Order Date Bone density 08/25/2024 Insurance Providers Payer Name Payer Address Payer Phone Subscriber Number Group Number Insured Name Patient Relationship to Insured Coverage Start Date Coverage End Date MEDICARE PART B [address] [address] [place] [address] [phone] [id number] Dagmar Flores Self - patient is the insured [facility] [address] [place] [address] [phone] [id number] Dagmar Flores Self - patient is the [...] Catheter Removal 11/2021 Total Knee Replacement 05/2022 Colonoscopy/ diverticulosis/ [place] 2023 Left total knee/ [place] 2024 Left total hip/ [place] 2024 Hospitalization History Reason Date(Month/Year) [facility] - Fall- [place] 12/30/2023 [facility] - syncope 10/28/2019 [facility]-syncope 10/24/2019 [facility] ER-seizure, passed out 03/2019
--- OUTSIDE RECORDS SUMMARY | 2024-09-08 09:19 | XMS_ITS | Patient Health Record ---
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 Name Role Phone MAX LOPEZ Primary Care Provider [phone] HENRRY CONNORS Unavailable [phone] Kolton Vazquez Unavailable [phone] Ashlee Argueta Unavailable [phone] Paulina Roque Unavailable [phone] Allergies Allergen (clinical drug ingredient) Drug/Non Drug Allergy documented on EMR Reaction Allergy Type Onset Date Status Aspirin (ASA) Gastric ulcer Drug Allergy Active Codeine Unknown Drug Allergy 04/25/2005 Active hydromorphone Dilaudid Unknown Drug Allergy 04/25/2005 Ac tive trazodone traZODone HCl headache Drug Allergy 01/23/2021 Ac tive Results Component Value Reference Range Notes Vitamin B12 Reviewed date:02/09/2024 12:34:12 PM Interpretation: Performing Lab:JANE, [facility]-W[address]uw[address] [place] Matthew Jameson MD Notes/Report: 0; 0; 0 FASTING:NO FASTING: NO VITAMIN B12 488 554-9046 pg/mL Folate (Folic Acid), Serum- Reviewed date:02/09/2024 12:34:12 PM Interpretation: Performing Lab:[facility]-Vlyyt4069 [address] [place] Matthew Jameson MD Notes/Report: 0; 0; 0 FASTING:NO FASTING: NO FOLATE, SERUM 6.2 Reference Range Low: <3.4 Borderline: 3.4-5.4 Normal: >5.4 Ferritin, Serum Reviewed date:02/09/2024 12:34:12 PM Interpretation: Performing Lab:JANE [facility]-Xqrzc[address] MfynxHZ[address] Matthew Jameson MD Notes/Report: 0; 0; 0 FASTING:NO FASTING: NO FERRITIN 25 16-288 ng/mL IRON, TOTAL Reviewed date:02/11/2024 03:55:11 PM Interpretation: Performing Lab:JANE, [facility]-Tufek[address] LfxyxCW[address] Matthew Jameson MD Notes/Report: 0 FASTING:NO FASTING: NO IRON, TOTAL 58 45-160 mcg/dL URINE CULTURE Reviewed date:02/11/2024 03:52:47 PM Interpretation: Performing Lab:J[facility] [address] [place]aeza[place] Matthew Jameson MD Notes/Report: 0 [...] elements. Only those elements seen were reported. PT and PTT Reviewed date:02/11/2024 03:52:15 PM Interpretation: Performing Lab:JANE [facility]-Tqilk1697 [address] [place] Matthew Jameson MD Notes/Report: 0; 0; 0 FASTING:NO FASTING: NO PARTIAL THROMBOPLASTIN TIME, ACTIVATED 28 23-32 sec This test has not been validated for monitoring unfractionated heparin therapy. For testing that is validated for this type of therapy, please refer to the Heparin Anti-Xa assay (test code 65264). For additional information, please refer to http://education.Bridesandlovers.com/faq/FA Q159 (This link is being provided for informational/educatio nal purposes only.) INR 1.1 Reference Range 0.9-1.1 Moderate-intensity Warfarin Therapy 2.0-3.0 Higher-intensity Warfarin Therapy 3.0-4.0 PT 11.5 9.0-11.5 sec CBC/Diff Ambiguous Default Reviewed date:02/09/2024 12:21:03 PM Interpretation: Performing Lab:JANE [facility]-Detqe89[address] NtjwrOE[address] Matthew Jameson MD Notes/Report: 0; 0; 0 [...] MPV 10.0 7.5-12.5 fL ABSOLUTE NEUTROPHILS 3214 8620-4501 cells/uL ABSOLUTE LYMPHOCYTES 6446 170-5284 cells/uL ABSOLUTE MONOCYTES 390 200-950 cells/uL ABSOLUTE EOSINOPHILS 62 15-500 cells/uL ABSOLUTE BASOPHILS 31 0-200 cells/uL NEUTROPHILS 61.8 LYMPHOCYTES 28.9 MONOCYTES 7.5 EOSINOPHILS 1.[address] Scan : Chest Reviewed date:01/26/2024 01:56:14 PM Interpretation: Performing Lab: Notes/Report: COMPREHENSIVE METABOLIC PANE L Reviewed date:03/16/2024 08:41:15 AM Interpretation: Performing Lab:JANE [facility]-Upjba9[address] KltqjPK[address] Matthew Jameson MD Notes/Report: FASTING: UNKNOWN GLUCOSE [...] due to hemolysis. ALT 7 6-29 U/L CBC/Diff Ambiguous Default Reviewed date:03/16/2024 08:41:30 AM Interpretation: Performing Lab:TP, [facility]Dycdc[address], UgevmUS[address] Matthew Jameson MD Notes/Report: FASTING: UNKNOWN WHITE [...] MPV 9.7 7.5-12.5 fL ABSOLUTE NEUTROPHILS 3035 6533-2475 cells/uL ABSOLUTE LYMPHOCYTES 2038 850-3900 cells/uL ABSOLUTE MONOCYTES 364 200-950 cells/uL ABSOLUTE EOSINOPHILS 123 15-500 cells/uL ABSOLUTE BASOPHILS 39 0-200 cells/uL NEUTROPHILS 54.2 LYMPHOCYTES 36.4 MONOCYTES 6.5 EOSINOPHILS 2.2 BASOPHILS 0.7 TSH+FREE T4 Reviewed date:03/18/2024 12:04:23 PM Interpretation: Performing Lab:JANE [facility] Levia[address] WutxqCA[address] Matthew Jameson MD Notes/Report: FASTING: UNKNOWN TSH 1.18 0.40-4.50 mIU/L T4, FREE 0.9 0.8-1.8 ng/dL COMPREHENSIVE METABOLIC PANE L Reviewed date:02/09/2024 12:19:33 PM Interpretation: Performing Lab:JANE BeiZLeta Bran GdlciQE[address] Matthew Jameson MD Notes/Report: 0; 0; 0 [...] 16 10-35 U/L ALT 6 6-29 U/L REFLEXIVE URINE CULTURE Reviewed date:02/11/2024 03:55:32 PM Interpretation: Performing Lab:JANE [facility] GeriEjrpb[address] WaqzgAW[address] Matthew Jameson MD Notes/Report: 0 FASTING:NO FASTING: NO REFLEXIVE URINE CULTURE NO C ULTURE INDICATED Lipid Panel Reviewed date:01/19/2024 09:21:45 AM Interpretation: Performing Lab:[facility]-Kecrr5850 [address] [place]FL[address] Matthew Jameson MD Notes/Report: FASTING CHOLESTEROL, TOTAL 174 <200 mg/dL HDL CHOLESTEROL 74 > OR = 50 mg/dL TRIGLYCERIDES 110 <150 mg/dL LDL-CHOLESTEROL 79 Reference range: <100 Desirable range <100 mg/dL for primary prevention; <70 mg/dL for patients with CHD or diabetic patients with > or = 2 CHD risk factors. LDL-C is now calculated using the Gordon calculation, which is a validated novel method providing better accuracy than the Friedewald equation in the estimation of LDL-C. Jack ORTIZ et al. TRISH. 2013;310(19): 7277-2559 (http://education.Channelinsight/faq/F AQ164) CHOL/HDLC RATIO 2.4 <5.0 (calc) NON HDL CHOLESTEROL 100 <130 mg/dL (calc) For patients with diabetes plus 1 major ASCVD risk factor, treating to a non-HDL-C goal of <100 mg/dL (LDL-C of <70 mg/dL) is considered a therapeutic option. Echocardiogram, transthoraci c Reviewed date:06/30/2024 08:28:19 AM Interpretation: Performing Lab: Notes/Report: CT Scan : Brain Reviewed date:06/30/2024 08:28:25 AM Interpretation: Performing Lab: Notes/Report: X ray : CHEST PA LATERAL Reviewed date:06/30/2024 08:28:30 AM Interpretation: Performing Lab: Notes/Report: Carotid Ultrasound Reviewed date:06/30/2024 08:28:35 AM Interpretation: Performing Lab: Notes/Report: X ray : Pelvis Reviewed date:06/30/2024 08:28:40 AM Interpretation: Performing Lab: Notes/Report: Esophagogastroduodenoscopy ( EGD) Reviewed date:05/09/2024 10:21:03 AM Interpretation: Performing Lab: Notes/Report: EKG Reviewed date:03/14/2024 03:58:50 PM Interpretation: Performing Lab: Notes/Report: COMPREHENSIVE METABOLIC PANE L Reviewed date:07/01/2024 10:47:02 AM Interpretation: Performing Lab:[facility]Hhzou[address] UncrgBP[address] Matthew Jameson MD Notes/Report: FASTING: UNKNOWN GLUCOSE [...] 15 10-35 U/L ALT 5 6-29 U/L CBC/Diff Ambiguous Default Reviewed date:07/01/2024 10:46:42 AM Interpretation: Performing Lab:[facility]Ibiwk[address], WtyocBO[address] Matthew Jameson MD Notes/Report: FASTING: UNKNOWN WHITE [...] MPV 10.2 7.5-12.5 fL ABSOLUTE NEUTROPHILS 3582 8160-7607 cells/uL ABSOLUTE LYMPHOCYTES 2035 850-3900 cells/uL ABSOLUTE MONOCYTES 566 200-950 cells/uL ABSOLUTE EOSINOPHILS 267 15-500 cells/uL ABSOLUTE BASOPHILS 52 0-200 cells/uL NEUTROPHILS 55.1 LYMPHOCYTES 31.3 MONOCYTES 8.7 EOSINOPHILS 4.1 BASOPHILS 0.8 VITAMIN B12/FOLATE, SERUM PA LINDA Reviewed date:07/01/2024 10:47:53 AM Interpretation: Performing Lab:[facility] [place] Matthew Jameson MD Notes/Report: FASTING: UNKNOWN VITAMIN B12 975 602-7579 pg/mL FOLATE, SERUM 6.3 Reference Range Low: <3.4 Borderline: 3.4-5.4 Normal: >5.4 IRON, TOTAL Reviewed date:07/01/2024 10:46:27 AM Interpretation: Performing Lab:Josi LARARmueo0216 [address] [place] Matthew Jameson MD Notes/Report: FASTING: UNKNOWN IRON, TOTAL 30 45-160 mcg/dL Ferritin, Serum Reviewed date:07/01/2024 10:47:40 AM Interpretation: Performing Lab:[facility] GeriEpzxv7993Prerna YipaFL[address] Matthew Jameson MD Notes/Report: FASTING: UNKNOWN FERRITIN 68 16-288 ng/mL CBC/Diff Ambiguous Default Reviewed date:03/28/2024 01:34:05 PM Interpretation: Performing Lab:[facility] Levia4Prerna MandujanoaFL[address] Matthew Jameson MD Notes/Report: FASTING: UNKNOWN WHITE [...] MPV 10.1 7.5-12.5 fL ABSOLUTE NEUTROPHILS 2348 1686-6005 cells/uL ABSOLUTE LYMPHOCYTES 3220 773-2432 cells/uL ABSOLUTE MONOCYTES 361 200-950 cells/uL ABSOLUTE EOSINOPHILS 101 15-500 cells/uL ABSOLUTE BASOPHILS 21 0-200 cells/uL NEUTROPHILS 55.9 LYMPHOCYTES 32.6 MONOCYTES 8.6 EOSINOPHILS 2.4 BASOPHILS 0.5 COMPREHENSIVE METABOLIC PANE L Reviewed date:01/19/2024 12:40:01 PM Interpretation: Performing Lab:JANE, [facility]ud[address], LcvcaTE[address] Matthew Jameson MD Notes/Report: FASTING GLUCOSE 87 [...] 19 10-35 U/L ALT 7 6-29 U/L CBC/Diff Ambiguous Default Reviewed date:01/21/2024 08:23:56 AM Interpretation: Performing Lab:[facility]Rmapi[address] QwmxjUH[address] Matthew Jameson MD Notes/Report: FASTING WHITE BLOOD [...] MPV 9.5 7.5-12.5 fL ABSOLUTE NEUTROPHILS 2698 6529-7143 cells/uL ABSOLUTE LYMPHOCYTES 2358 490-4473 cells/uL ABSOLUTE MONOCYTES 367 200-950 cells/uL ABSOLUTE EOSINOPHILS 97 15-500 cells/uL ABSOLUTE BASOPHILS 61 0-200 cells/uL NEUTROPHILS 52.9 LYMPHOCYTES 36.8 MONOCYTES 7.2 EOSINOPHILS 1.9 BASOPHILS 1.2 URINALYSIS, COMPLETE Reviewed date:01/20/2024 08:01:28 AM Interpretation: Performing Lab: Notes/Report: URINALYSIS, COMPLETE Reviewed date:01/20/2024 08:01:28 AM Interpretation: Performing Lab: Notes/Report: Hemoglobin A1c Reviewed date:01/21/2024 08:24:03 AM Interpretation: Performing Lab:[facility]Knngb[address] FtgbkFU[address] Matthew Jameson MD Notes/Report: FASTING HEMOGLOBIN A1c [...] A1c for diagnosis of diabetes for children. SPECIMEN INTEGRITY COMPROMIS ED Reviewed date:03/18/2024 12:04:23 PM Interpretation: Performing Lab:J[facility]Z[address]ahy[address], DamywLY[address] Matthew Jameson MD Notes/Report: FASTING: UNKNOWN SPECIMEN INTEGRITY COMPROMISED Whole blood, unspun or partially spun gel barrier tube was received more than 6 hours since collection. A false elevation of K, Phos and LD as well as a false decrease in glucose may occur due to prolonged contact with red cells. CT Scan : Head, without cont rast [...] date:01/25/2024 03:47:13 PM Interpretation: Performing Lab: Notes/Report: Pathology Report Reviewed date:05/19/2024 08:18:15 AM Interpretation: Performing Lab: Notes/Report: Reason For Referral No Information Medications Medication SIG (Take, Route, Frequency, Duration) Notes Start Date End Date Status Albuterol Sulfate HFA 108 (90 Base) MCG/ACT 1 puff as needed Inhalation every 4-6 hours Active Trelegy Ellipta 200-62.5-25 MCG/ACT Inhale 1 puff by mouth once daily. Rinse mouth after each use; Duration: 30 days Active Albuterol Sulfate 1.25 MG/3ML 3 ml as needed Inhalation Three times a day dx j44.9; Duration: 90 days Active Omeprazole 40 MG 1 capsule Orally twice a day; Duration: 30 days 06/14/2020 Active Ranolazine ER 500 MG 1 tablet Orally Twice a day Active Montelukast Sodium 10 MG Take 1 tablet by mouth once daily; Duration: 90 days Active BD Syringe/Needle 25G X 5/8 1 ML use one per month for B-12 injections; Duration: 90 days please dispense the one that is available for patient. Nic 06/30/2024 Active Midodrine HCl 5 MG 1 tablet at 7 am 1 tablet at 11 am Orally; Duration: 30 days As needed Active Gabapentin 300 MG TAKE 1 CAPSULE EVERY MORNING AND TAKE 3 CAPSULES AT BEDTIME; Duration: 90 days Active Metoprolol Tartrate 25 MG 1 tablet with food Orally once a day at bedtime; Duration: 90 days Active Vitamin B-6 100 MG 1 tablet Orally Once a day Unknown Keppra 500 MG 1 tablet Orally every 12 hrs; Duration: 90 days Active Vitamin B-1 100 MG 1 tablet Orally Once a day Unknown traMADol HCl 50 MG 1 tablet as needed ACUTE PAIN EXCEPTION Orally Two times a day; Duration: 10 days PRN 06/02/2023 Unknown Sucralfate 1 GM 1 tablet on an empty stomach Oral Twice a day; Duration: 30 days 03/14/2024 Unknown Eliquis 5 MG Take 1 tablet Orally Twice a day; Duration: 90 days Active Effexor XR 75 MG 1 capsule with food Oral Once a day; Duration: 90 days Active Flonase Allergy Relief 50 MCG/ACT 1 spray in each nostril Nasally Twice a day; Duration: 30 days 05/09/2024 Unknown Cyanocobalamin 1000 MCG/ML 1,000mcg / 1cc q month Injection once a month; Duration: 90 days Active ARIPiprazole 20 MG 1 tablet Orally Once a day; Duration: 30 days 05/02/2024 Unknown Atorvastatin Calcium 40 MG 1 tablet Orally every night; Duration: 90 days Active ALPRAZolam 0.25 MG 1 tablet Orally Twice a day; Duration: 10 days As needed 05/02/2024 Unknown Immunizations [...] Status W/U Status Risk Notes Problem Anemia (480492421) Anemia, unspecified (D64.9) Active confirmed Problem Thrombophilia (115873493) Other thrombophilia (D68.69) Active confirmed Problem Type 2 diabetes mellitus with peripheral angiopathy (725587667) Type 2 diabetes mellitus with diabetic peripheral angiopathy without gangrene (E11.51) 018 Active confirmed Problem Mild recurrent major depression (34923185) Major depressive disorder, recurrent, mild (F33.0) Inactive confirmed Problem Moderate recurrent major depression (51938049) Major depressive disorder, recurrent, moderate (F33.1) Active confirmed Problem Affective psychosis (440843166) Unspecified mood [affective] disorder (F39) Inactive confirmed Problem Alzheimer's disease (35953851) Alzheimer's disease, unspecified (G30.9) Active confirmed Problem Obstructive sleep apnea syndrome (disorder) (88104319) Obstructive sleep apnea (adult) (pediatric) (G47.33) 015 Active confirmed Problem Polyneuropathy (32087878) Polyneuropathy, unspecified (G62.9) Inactive confirmed Problem 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) Active confirmed Problem Essential hypertension (07361449) Essential (primary) hypertension (I10) 011 Active confirmed Problem 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) (90770155874785387 ) Atherosclerotic heart disease of [place] coronary artery with other forms of angina pectoris (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) Active confirmed Problem Paroxysmal atrial fibrillation (836868561) Paroxysmal atrial fibrillation (I48.0) Active confirmed Problem Sick sinus syndrome (52642477) Sick sinus syndrome (I49.5) 013 Active confirmed Problem Carotid artery occlusion (165562293) Occlusion and stenosis of unspecified carotid artery (I65.29) 016 Active confirmed [place]-726 400- Problem Atherosclerosis of aorta (62758094) Atherosclerosis of aorta (I70.0) 014 Active confirmed Problem Allergic rhinitis (67047336) Allergic rhinitis, unspecified (J30.9) 018 Active confirmed Problem Simple chronic bronchitis (23917800) Simple chronic bronchitis (J41.0) 017 Active confirmed Problem Chronic obstructive pulmonary disease (15355004) Chronic obstructive pulmonary disease, unspecified (J44.9) Inactive confirmed Problem Gastro-esophageal reflux disease without esophagitis (156845254) Gastro-esophageal reflux disease without esophagitis (K21.9) Inactive confirmed Problem Disorder of bone (61082513) Other specified disorders of bone density and structure, other site (M85.88) Inactive confirmed Problem Menopause (069930944) Menopausal and female climacteric states (N95.1) Inactive confirmed Problem Heartburn (07918965) Heartburn (R12) Active confirmed Problem Cervix excision (872152210) Acquired absence of cervix with remaining uterus (Z90.712) 015 Problem resolved confirmed Problem Cardiac pacemaker in situ (973951292) Presence of cardiac pacemaker (Z95.0) 016 Active confirmed Problem History of bariatric surgical procedure (321913601) Bariatric surgery status (Z98.84) 011 Problem resolved confirmed Problem Prediabetes (389910491) Prediabetes (R73.03) Inactive confirmed Problem Type II diabetes mellitus without complication (973930437) Type 2 diabetes mellitus without complication, without long-term current use of insulin (E11.9) Inactive confirmed Problem Chronic bronchitis (87214068) Chronic bronchitis, unspecified chronic bronchitis type (J42) Inactive confirmed Problem Alcohol dependence (84357491) Uncomplicated alcohol dependence (F10.20) Active confirmed Problem Osteoarthritis of knee (347644836) Primary osteoarthritis of right knee (M17.11) Active confirmed Problem Senile purpura (01909854) Senile purpura (D69.2) Active confirmed Problem Osteoarthritis of knee (216922065) Primary osteoarthritis of left knee (M17.12) Active confirmed Problem Iron deficiency anemia (49493491) Iron deficiency anemia, unspecified iron deficiency anemia type (D50.9) Active confirmed Problem Anemia (800699847) Anemia, unspecified type (D64.9) Active confirmed Problem Chronic atrial fibrillation (830553574) Chronic atrial fibrillation (I48.20) Inactive confirmed Problem Insomnia (869454718) Insomnia, unspecified type (G47.00) Active confirmed Problem Angina (311820267) Atheroscleros is of [place] coronary artery of [place] heart with angina pectoris (I25.119) Inactive confirmed Problem Hypertensive heart failure (71565834) 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) Active confirmed Problem Seizure (47469236) Seizure (R56.9) Active confi rmed Problem Chronic sinusitis (95336888) Sinusitis, unspecified chronicity, unspecified location (J32.9) Inactive confirmed Problem Pre-op evaluation (733240189) Pre-op evaluation (Z01.818) Inactive confirmed Problem Localized, primary osteoarthritis of the pelvic region and thigh (170797362) Primary osteoarthritis of left hip (M16.12) Active confirmed Problem Peripheral vascular disease (117230783) PAD (peripheral artery disease) (I73.9) Active confirmed Problem Dyslipidemia (369410732) Dyslipidemia (E78.5) Active confirmed Problem Type 2 diabetes mellitus with other specified complication, without long-term current use of insulin (E11.69) Active confirmed Problem Thrombophilia (212438646) Thrombophilia (D68.59) Inactive confirmed Problem Malignant melanoma of skin (98780310) Malignant melanoma, unspecified site (C43.9) Active confirmed Problem Chronic diastolic heart failure (925451450) Chronic heart failure with preserved ejection fraction (HFpEF) (I50.32) Active confirmed Problem Diastolic heart failure (557929276) Heart failure with preserved left ventricular function (HFpEF) (I50.30) Inactive confirmed Vital Signs Heart Rate 90 /min 07/18/2024 Respiratory Rate 18 /min 07/18/2024 Blood pressure diastolic 64 mm Hg 07/18/2024 Oximetry 95 % 07/18/2024 Height 61 in 07/18/2024 Blood pressure systolic 108 mm Hg 07/18/2024 Weight 138.2 lbs 07/18/2024 BMI 26.11 kg/m2 07/18/2024 Procedures Procedure Date Ordered Date Performed Result Body Sit e Care of Older Adults (COA) 05/26/2024 undefined ANNUAL- Medicare- Subsequent 05/26/2024 undefin ed Encounters Encounter Location Date Provider Diagnosis [facility] [place] [address] 01/18/2024 MAX LOPEZ Dyslipidemia E78.5 ; Essential (primary) hypertension I10 and Type 2 diabetes mellitus with diabetic peripheral angiopathy without gangrene E11.51 [facility] [place] [address] 01/26/2024 MAX LOPEZ Hospital discharge follow-up Z09 ; Atherosclerotic heart disease of [place] coronary artery with other forms of angina pectoris I25.118 ; Essential (primary) hypertension I10 ; Heart failure with preserved left ventricular function (HFpEF) I50.30 ; Spontaneous ecchymoses R23.3 ; Chronic atrial fibrillation I48.20 ; Pre-op evaluation Z01.818 ; Anemia, unspecified type D64.9 ; Other thrombophilia D68.69 and Simple chronic bronchitis J41.0 [facility] [place] [address] 02/15/2024 MAX LOPEZ Type 2 diabetes pernell itus with diabetic peripheral angiopathy without gangrene E11.51 ; Essential (primary) hypertension I10 ; Dyslipidemia E78.5 and Primary osteoarthritis of left knee M17.12 [facility] [place] [address] 03/14/2024 MAX LOPEZ Primary osteoarthrit is of left knee M17.12 ; Anemia, unspecified type D64.9 ; Heartburn R12 ; Dehydration E86.0 ; Fatigue, unspecified type R53.83 ; Polyarthralgia M25.50 ; Dyslipidemia E78.5 ; Prediabetes R73.03 and Encounter for other administrative examinations Z02.89 [facility] [place] [address] 03/23/2024 MAX LOPEZ Anemia, unspecified type D64.9 ; Essential (primary) hypertension I10 ; Uncomplicated alcohol dependence F10.20 and Heartburn R12 [facility] [place] [address] 05/02/2024 MAX LOPEZ Essential (primary) hypertension I10 ; Anemia, unspecified type D64.9 ; Dyslipidemia E78.5 ; Primary osteoarthritis of left knee M17.12 ; Heartburn R12 ; Major depressive disorder, recurrent, moderate F33.1 ; Primary osteoarthritis of left hip M16.12 ; Seizure R56.9 ; Other specified hypotension I95.89 and Allergic rhinitis, unspecified J30.9 [facility] [address] [place] [address] 05/09/2024 Paulina Bondslisbet Simple chronic bronc hitis J41.0 ; Sinusitis, unspecified chronicity, unspecified location J32.9 and Other fatigue R53.83 [facility] [address] [place] [address] 05/26/2024 HENRRY CONNORS Encounter for genera l [...] menopausal state Z78.0 and BMI 26.0-26.9,adult Z68.26 [facility] [place] [address] [place] [address] 06/30/2024 HENRRY CONNORS Anemia, unspecified D64.9 ; Syncope, unspecified syncope type R55 ; Low serum potassium E87.6 ; B12 deficiency E53.8 ; Left hip pain M25.552 and Hospital discharge follow-up Z09 [facility] [address] [place] [address] 07/18/2024 Kolton Vazquez Essential (primary) hypertension I10 ; Atherosclerotic heart disease of [place] coronary artery with other forms of angina pectoris I25.118 ; Dyslipidemia E78.5 ; Type 2 diabetes mellitus with other specified complication, without long-term current use of insulin E11.69 ; Iron deficiency anemia, unspecified iron deficiency anemia type D50.9 and Major depressive disorder, recurrent, moderate F33.1 [facility] [address] [place] [address] 01/04/2024 MAX LOPEZ [facility] [address] [place] [address] 05/04/2024 MAX LOPEZ [facility] [address] [place] [address] 05/12/2024 MAX LOPEZ [facility] [address] [place] [address] 06/23/2024 MAX LOPEZ [facility] [address] [place] [address] 06/27/2024 MAX LOPEZ Primary osteoarthrit is of left hip M16.12 ; Near syncope R55 ; Critical illness myopathy G72.81 and Hypokalemia E87.6 [facility] [address] [place] [address] 06/30/2024 MAX LOPEZ Assessments Encounter Date Diagnosis (ICD Code) Assessment Notes Treatment Notes Treatment Clinical Notes Section Notes 01/18/2024 Dyslipidemia (ICD-10 - E78.5) 01/26/2024 Atherosclerotic heart disease of [place] coronary artery with other forms of angina [...] DASH diet. 07/18/2024 Atherosclerotic heart disease of [place] coronary artery with other forms of angina pectoris (ICD-10 - I25.118) Importance of achieving adequate risk factor control, compliance with lipid- lowering agent, aspirin , beta mary if applicable. and healthy balanced diet , regular exercise, stay at healthy weight, 06/30/2024 Low serum potassium (ICD-10 - E87.6) Will repeat K. 06/27/2024 Near syncope (ICD-10 - R55) 07/18/2024 Dyslipidemia (ICD-10 - E78.5) Counseled on diet and exercise., target lipid levels Compliance with treatment regimen,, daily excercise low impact option of DASH / mediterranean diet explained 05/09/2024 Other fatigue (ICD-10 - R53.83) Discussed [...] option of DASH / mediterranean diet explained 05/26/2024 Encounter for screening for malignant neoplasm of colon (ICD-10 - Z12.11) pt reports she did colonoscopy in 2023 in [place]. Will bring info in 2024. 03/23/2024 Uncomplicated alcohol dependence (ICD-10 - F10.20) Counselled patient on effects of Alcohol risk of of injury and fall precaution. set a quit date , remove alcohol from house , avoid time with others drinking alcohol, take on new activities , to not give up because of past failures , advised to not drink and drive 02/15/2024 Dyslipidemia (ICD-10 - E78.5) Counseled on diet and exercise., target lipid levels Compliance with treatment regimen,, daily excercise low impact option of DASH / mediterranean diet explained 03/14/2024 Heartburn (ICD-10 - R12) Take otc [...] sleep, stress, low impact exercise, DASH diet. 01/18/2024 Essential (primary) hypertension (ICD-10 - I10) [...] pt, she is doing MMG annually in [place]. Will bring the info in Dec 2024. 07/18/2024 Type 2 diabetes mellitus with other [...] aspirin, JUS inhibitor, and statin role explained. 06/27/2024 Critical illness myopathy (ICD-10 - G72.81) [...] folate, stay updated with cancer screening . 06/27/2024 Hypokalemia (ICD-10 - E87.6) 05/26/2024 Encounter for examination of eyes and vision without abnormal findings (ICD-10 - Z01.00) per pt, she does eye exam annually with [facility]. MR requested. 05/02/2024 Heartburn (ICD-10 - R12) Take otc [...] support, RICE (rest, ice, compression, elevate) therapy. 03/14/2024 Dyslipidemia (ICD-10 - E78.5) Counseled on diet and exercise., target lipid levels Compliance with treatment regimen,, daily excercise low impact option of DASH / mediterranean diet explained 01/26/2024 Pre-op evaluation (ICD-10 - Z01.818) 01/26/2024 Anemia, unspecified type (ICD-10 - D64.9) Counselled on Monitor labs and supplement with OTC iron /Vitamin C/B12/ folate, stay updated with cancer screening . 03/14/2024 Prediabetes (ICD-10 - R73.03) Counseled pt on diet and exercise. Low glycemic index foods explained 05/02/2024 Seizure (ICD-10 - R56.9) compliance with meds, seizure precautions 05/26/2024 BMI 26.0-26.9,adult (ICD-10 - Z68.26) Explained risk factors, advised low glycemic index foods, low impact exercise daily, and a balanced diet. 05/02/2024 Other specified hypotension (ICD-10 - I95.89) [...] like water. Avoid or limit alcohol, caffeine. 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 01/26/2024 Simple chronic bronchitis (ICD-10 - J41.0) [...] Other HPI ,exam assessment, plan and data management consultant performed by Ashlee Argueta APRN - - The visit was conducted with the use of interactive ( video /audio) telecommunication that permitted real time communication between ( patient) and Myself. (Patient) verbally consented to participation and recieved service being present at Home. 01/26/2024 Other RECOMMENDATIONS include adequate nutrition, up [...] Other HPI ,exam assessment, plan and data management consultant done in collaboration with Maninder Lala PA-C [...] pt's home proivder's location during today's visit: [facility] (clinic) Video/audio: 05/26/2024 Other *Advanced Care Directive in file. pt reports she will do hip surgery in June and is planning to go to [place] in July, and will return to [place] in 2024. 06/30/2024 Other RECOMMENDATIONS given include: routine exercise ,balanced diet and watch for neuropathy symptoms . 07/18/2024 Other pt leaving for another state advise to follow with MD at destinationfor anemia and other diagnosis. Evaluation and management performed by Kolton Vazquez APRN Plan Of Treatment Pending Test Test Name Order Date Vitamin B12 03/14/2024 Folate (Folic Acid), Serum- 03/14/2024 Ferritin, Serum 03/14/2024 Comp. Metabolic Panel (14) 06/30/2024 Comp. Metabolic Panel (14) 01/18/2024 Comp. Metabolic Panel (14) 01/26/2024 PT/INR Prothrombin with INR 01/26/2024 IRON, TOTAL 03/14/2024 Care of Older Adults (COA) 05/13/2023 Future Test Test Name Order Date Hemoglobin A1c 04/27/2024 Ferritin, Serum 04/27/2024 Lipid Panel 04/27/2024 Comp. Metabolic Panel (14) 04/27/2024 IRON AND TOTAL IRON BINDING CAPACITY URINALYSIS, COMPLETE 04/27/2024 VITAMIN B12/FOLATE, SERUM PANEL 04/27/19 25 CBC/Diff Ambiguous Default 04/27/2024 Next Appt Details Provider Name:MAX LOPEZ, 01/18/2025 08:30:00 AM, [facility] [place], [address], Provider Name:Kolton Vazquez, 04:40:00 PM, [facility] [place], [address], Provider Name:Girma nance, 05/29/2025 01:50:00 PM, [address] [place], [address], Insurance Providers Payer Name Payer Address Payer Phone Subscriber Number Group Number Insured Name Patient Relationship to Insured Coverage Start Date Coverage End Date [place] Medicare Part B J9 [facility] [address] [address] [place] [id number] DEBORAH MOTLEY IDA Self - patient is the insured 4 [place] and Blue [facility] [address] [place] [id number] IDA MOTLEY Self - patient is [...] uterus (resolved 02/04/2016) undefined 2023.01.15 CXR ASVDa. [id number] 7 Alcohol use -patient has 3 or more drink s of wine almost on a daily basis Surgical History Surgery Date(Month/Year) Arthroscopy: Left knee 2003 Breast Biopsy Hysterectomy Partial (ovaries remaining) 1986 Liyah Fundoplasty 1996 Pacemaker Implantation ([facility])- 2014 Gastroplasty 1986 Eusebia en Y gastric bypass Bilateral upper lid lift 05/10/2021 Total Knee Replacement-right 05/27/2022 knee revision 04/21/23 left hip replacement 06/07/2024 Hospitalization History Reason Date(Month/Year) Hysterectomy 1986 DX syncope @ [facility] 06/19/2024-06/23/2024 DX lt hip pain @ [facility] 06/07/2024-06/08/2024 DX fall @ [facility] ER VISIT 12/30/2023 melanoma removed from arm 02/17/2022 pt passed out 10/09/20-10/11/20 Right knee replacement 07/21/2017
--- OUTSIDE RECORDS SUMMARY | 2024-09-08 09:19 | XMS_ITS | Clinical Summary ---
Author Organization [facility] Keesha [facility] Address [address] [place] [address] Care Team Providers Care Machining Associate Name Role Phone Charles Barrett MD Primary Care Provider +1- [phone] Social History Tobacco Use Types Packs/Day Years [...] Insurance MEDICARE BCBS [place] FEP Care Teams Machining Associate Relationship Specialty Start Date End Date Charles Barrett MD [facility] [address] [facility] [address] [place] [address] PCP - General 06/09/19
--- OUTSIDE RECORDS SUMMARY | 2024-09-08 09:19 | XMS_ITS | Encounter Summary ---
Author Organization [employer] ([place], [place], [place], [place]) Address [address] [place] [address] Care Team Providers Care Railroad Switchman Name Role Phone Charles Barrett MD Primary Care Provider +1- [phone] Encounter Details Date Type Department Care Team (Late st Contact Info) Description 11/10/2019 Transcribed Document [facility] Family [facility] [place] [address] ProviderRaúl MD [address] [place] [address] Social History Tobacco Use Types Packs/Day [...] including vitamins, herbs, eye drops, creams, and gpzt-tdg-owkuqco medicines. ??? Any problems you or family [...] tells you to take them. ??? Taking ckoe-ngi-prwwdsy medicines, vitamins, herbs, and supplements. Exams and [...] 11/17/2012 Document Revised: 01/17/2019 Document Reviewed: 01/17/2019 [employer] Patient Education ? 2020 [employer]. Radial Site Care This sheet gives you [...] these instructions at home: Medicines ??? Take zrsh-mbb-qfjzubh and prescription medicines only as told by your health care provider. Insertion site care ??? Follow instructions from your health care provider about how to take care of your insertion site. Make sure you: ? Wash your hands with soap and water before you change your bandage (dressing). If soap and water are not available, use hand pocket grinder operator. ? Change your dressing as told by [...] 03/28/2011 Document Revised: 03/31/2018 Document Reviewed: 03/31/2018 [employer] Patient Education ? 2020 [employer]. Moderate Conscious Sedation, Adult, Care After [...] you are awake and alert. ??? Take fzti-zie-eghksgk and prescription medicines only as told by [...] Document Reviewed: 06/14/2016 Elsevier Patient Education ? 2019 [employer]. Electronically signed by Francisco, [facility] Conversion District Associate Judge Cerner at 06/23/2022 11:33 AM CDT documented in this encounter Plan of Treatment Upcoming Encounters Date Type Department Care Team (Late st Contact Info) Description 11/03/2024 3:45 PM EDT Appointment [address] [place] [address] documented as of this encounter Visit Diagnoses Not on filedocumented in this encounter Care Teams Railroad Switchman Relationship Specialty Start Date End Date Charles Barrett MD [address] [address] [address] [place] [address] PCP - General Family Medicine 11/19/22 documented as of this encounter
--- OUTSIDE RECORDS SUMMARY | 2024-09-08 09:19 | XMS_ITS | Encounter Summary ---
Author Organization [employer] ([place], [place], [place], [place]) Address [address] [place] [address] Care Team Providers Care Broadcast Designer Name Role Phone Rekha Barrett MD Primary Care Provider +1- [phone] Encounter Details Date Type Department Care Team (Late st Contact Info) Description 11/10/2019 Transcribed Document [facility] Family [place] [facility] [place] [address] ProviderRaúl MD [address] [place] [address] Social History Tobacco Use Types Packs/Day Years Used Date Smoking Tobacco: Never Assessed Comments Unknown Sex and Gender Information Value Date Recorded Sex Assigned at Not on file Legal Sex Female 5:06 PM CDT Gender Identity Not on file Sexual Orientation Not on file documented as of this encounter Miscellaneous Notes * Cerner Conversion Note - Raúl Gonzalez MD - 11/10/2019 6:48 PM CDT [facility] [place] [address] IDA FLORES LISSA :1950 Visit Time:11/10/2019 Your Visit Summary Your Care Team Admitting Physician - MADHURI RODRIGUEZ MD-CAR Attending Physician - MADHURI RODRIGUEZ MD-CAR Primary Care Physician - REKHA BARRETT (REF)MD [...] Comments Call for follow up appointment Where: [address] [place] [address] Medications What How Much When Instructions Next [...] including vitamins, herbs, eye drops, creams, and nhhl-ixr-wcyoqlx medicines. ??? Any problems you or family [...] tells you to take them. ??? Taking urcj-lno-ivqlmgd medicines, vitamins, herbs, and supplements. Exams and [...] 11/17/2012 Document Revised: 01/17/2019 Document Reviewed: 01/17/2019 [employer] Patient Education ?? 2020 [employer]. Radial Site Care This sheet gives [...] these instructions at home: Medicines ??? Take cvzg-yht-bikiiud and prescription medicines only as told by your health care provider. Insertion site care ??? Follow instructions from your health care provider about how to take care of your insertion site. Make sure you: ? Wash your hands with soap and water before you change your bandage (dressing). If soap and water are not available, use hand certified nurse operating room. ? Change your dressing as told by [...] 03/28/2011 Document Revised: 03/31/2018 Document Reviewed: 03/31/2018 [employer] Patient Education ?? 2020 [employer]. Moderate Conscious Sedation, Adult, Care After [...] you are awake and alert. ??? Take wuga-fnn-wazhhmh and prescription medicines only as told by [...] 12/14/2013 Document Revised: 02/05/2018 Document Reviewed: 06/14/2016 ElseFeifei.com Patient Education ?? 2020 [employer] Inc. Emergency Awareness and Preventative Care STROKE [...] Assistance with quitting is available by contacting 2-076-MKKR-NOW. This is a free resource providing counseling, [...] was given the opportunity to ask questions. Patient/Power Plant Mechanic Name: Patient/Power Plant Mechanic Signature: Relationship to Patient: Clinician/Hospital Power Plant Mechanic Signature: Date: documented in this encounter Plan of Treatment Upcoming Encounters Date Type Department Care Team (Late st Contact Info) Description 11/03/2024 3:45 PM EDT Appointment [address] [address] documented as of this encounter Visit Diagnoses Not on filedocumented in this encounter Care Teams Broadcast Designer Relationship Specialty Start Date End Date Rekha Barrett MD [address] [facility] [address] [place] [address] PCP - General Family Medicine 11/19/22 documented as of this encounter
--- OUTSIDE RECORDS SUMMARY | 2024-09-08 09:19 | XMS_ITS | Encounter Summary ---
Author Organization [employer] ([place], [place], [place], [place]) Address [address] [place] [address] Care Team Providers Care Lpn Rn Name Role Phone Charles Barrett MD Primary Care Provider +1- [phone] Encounter Details Date Type Department Care Team (Late st Contact Info) Description 11/10/2019 Transcribed Document [facility] [place] [address] [place] [address] ProviderRaúl MD [address] [place] [address] Social History Tobacco Use Types Packs/Day Years Used Date Smoking Tobacco: Never Assessed Comments Unknown Sex and Gender Information Value Date Recorded Sex Assigned at Not on file Legal Sex Female 5:06 PM CDT Gender Identity Not on file Sexual Orientation Not on file documented as of this encounter Miscellaneous Notes * Cerner Conversion Note - Raúl Gonzalez MD - 11/10/2019 4:58 PM CDT DATE OF SERVICE: 11/10/2019 LEFT HEART CATHETERIZATION REPORT INDICATIONS: Dyspnea, equivalent angina, history of abnormal nuclear stress test, abnormal coronary artery calcium score. PROCEDURE PERFORMED: Standard left heart catheterization. TECHNIQUE: A 5/6-Bermudian sheath was placed in the right radial [...] factor modification and medical management are recommended. /[id number] Jarad Rodriguez MD SSL/AQ / SSL / MODL /[id number] CC: Charles Barrett Electronically signed by Francisco [facility] Conversion Bag Machine Operator Cerner at 06/23/2022 11:18 AM CDT documented in this encounter Plan of Treatment Upcoming Encounters Date Type Department Care Team (Late st Contact Info) Description 11/03/2024 3:45 PM EDT Appointment [address] [place] [address] documented as of this encounter Visit Diagnoses Not on filedocumented in this encounter Care Teams Lpn Rn Relationship Specialty Start Date End Date Charles Barrett MD [address] [facility] [address] [facility] [address] PCP - General Family Medicine 11/19/22 documented as of this encounter
--- OUTSIDE RECORDS SUMMARY | 2024-09-08 09:19 | XMS_ITS | Encounter Summary ---
Author Organization [employer] ([place], [place], [place], [place]) Address [address] [place] [address] Care Team Providers Care Mobile Web Application Developer Name Role Phone Charles Barrett MD Primary Care Provider +1- [phone] Encounter Details Date Type Department Care Team (Late st Contact Info) Description 11/10/2019 Transcribed Document [facility] Family Medicine [facility] [address] ProviderRaúl MD [address] [place] [address] Social History Tobacco Use Types Packs/Day Years Used Date Smoking Tobacco: Never Assessed Comments Unknown Sex and Gender Information Value Date Recorded Sex Assigned at Not on file Legal Sex Female 5:06 PM CDT Gender Identity Not on file Sexual Orientation Not on file documented as of this encounter Miscellaneous Notes * Cerner Conversion Note - Raúl ProviderMD - 11/10/2019 5:53 PM CDT Nursing Discharge Summary Entered On: 11/10/2019 17:53 EDT Performed On: 11/10/2019 17:53 EDT by Monica Stubbs RN Discharge Documentation Discharge Date/Time : 11/10/2019 19:10 EDT Transporter Signature : Monica Stubbs RN Cody, Jill, RN - 11/10/2019 20:59 EDT Patient Disposition, [...] materials Teaching Evaluation : Verbalizes understanding Monica Stubbs, BRITTNEE - 11/10/2019 17:53 EDT documented in this encounter Plan of Treatment Upcoming Encounters Date Type Department Care Team (Late st Contact Info) Description 11/03/2024 3:45 PM EDT Appointment [address] [place] [address] documented as of this encounter Visit Diagnoses Not on filedocumented in this encounter Care Teams Mobile Web Application Developer Relationship Specialty Start Date End Date Charles Barrett MD [address] [facility] [address] [place] [address] PCP - General Family Medicine 11/19/22 documented as of this encounter
--- OUTSIDE RECORDS SUMMARY | 2024-09-08 09:19 | XMS_ITS | Encounter Summary ---
Author Organization [employer] ([place], [place], [place], [place]) Address [address] [place] [address] Care Team Providers Care Casting Coordinator Name Role Phone Charles Barrett MD Primary Care Provider +1- [phone] Reason for Referral * Mammography (Routine) - Closed Specialty Diagnoses / Procedures Referred By Patricia t Referred To Contact Diagnoses Visit for screening mammogram Procedures MM digital mammo screen with sudheer bilateral Charles Barrett MD [address] [facility] [address] [place] [address] Phone: tel: fax: Referral ID Status Reason Start Date Expiration Date Visits Re quested Visits Authorized [id number] Closed 11/02/2023 04/30/2024 1 1 Encounter Details Date Type Department Care Team (Late st Contact Info) Description 11/19/[address] [place] [address] Charles Barrett MD [address] [place] [address] Visit for screening mammogram (Primary Dx) Social History Tobacco Use Types Packs/Day Years Used Date Smoking Tobacco: Never Assessed Food Insecurity Answer Date Recorded Food run [...] Date Jarrett rded Speak language other than Qatari at home Not on file 03/27/2023 Want [...] Info) Description 11/03/2024 3:45 PM EDT Appointment [address] [address] documented as of this encounter Results [...] the next mammogram. At our facility, a tununak marker is positioned over a visible skin [...] cancer. COMPARISON STUDY: 2022 through 2014 from [facility] FINDINGS: Craniocaudal and mediolateral oblique images of [...] mammogram documented in this encounter Care Teams Casting Coordinator Relationship Specialty Start Date End Date Charles Barrett MD [address] [place] [facility] [address] [place] [address] PCP - General Family Medicine 11/19/22 documented as of this encounter
--- OUTSIDE RECORDS SUMMARY | 2024-09-08 09:19 | XMS_ITS | Encounter Summary ---
Author Organization [employer] ([place], [place], [place], [place]) Address [address] [place] [address] Care Team Providers Care Technology Services Manager Name Role Phone Charles Barrett MD Primary Care Provider +1- [phone] Encounter Details Date Type Department Care Team (Late st Contact Info) Description 11/10/2019 Transcribed Document [facility] Family [place] [address] ProviderRaúl MD [address] [place] [address] Social History Tobacco Use Types Packs/Day Years Used Date Smoking Tobacco: Never Assessed Comments Unknown Sex and Gender Information Value Date Recorded Sex Assigned at Not on file Legal Sex Female 5:06 PM CDT Gender Identity Not on file Sexual Orientation Not on file documented as of this encounter Miscellaneous Notes * Cerner Conversion Note - Raúl ProviderMD - 11/10/2019 1:30 PM CDT Pre Procedure Adult Entered On: 11/10/2019 13:43 EDT Performed On: 11/10/2019 13:30 EDT by Monica Stubbs RN Height and Weight, Clinical Dosing Height Source : Stated Height Entry Format : Jasper Height, Feet : 5 ft(Converted to: 152 cm, 60 Inch) Height, Inches : 0 Inch(Converted to: 0 ft 0 Inch, 0.00 cm) Clinical Height : 152.4 cm Weight Source : Standing scale Weight Entry Format : Jasper Clinical Dosing Weight : 59.55 kg Weight, Pounds : 131 lb Body Surface Area (BSA) : 1.56 m2 Body Mass Index : 25.6 kg/m2 (HI) [place] Body Weight : 45 kg Monica Stubbs RN - 11/10/2019 13:30 EDT Health Histories Smoking Status : Never (less than 100 in lifetime; none in last 30 days) Smokeless Tobacco Status : Never Monica Stubbs RN - 11/10/2019 13:30 EDT Social History (As [...] (Last Updated: 08/15/2015 13:40:33 EDT by KEEGAN SURESH, BRITTNEE) Alcohol: Alcohol Use History Yes. Alcohol Use [...] FAY MIRANDA, RN) Home/Environment: Lives with Spouse, znneaz-fc-dpa. Home equipment: Glucose monitoring, INR machine. Alcohol [...] Monica Stubbs RN - 11/10/2019 13:30 EDT [place] Suicide Severity Rating Scale (C-SSRS) CSSRS Past [...] : Living will, Medical durable power of assistant attorney general (proxy) Medical Durable Power of Helicopter Pilot Instructor Name : Norberto Flores Copy Advance Directive Verified/on Chart : No [...] RN - 11/10/2019 13:30 EDT General Info Ice Bag Assembler Needed : No Monica Stubbs RN - 11/10/2019 21:00 EDT Preferred Name : Leilani Arrived From : Home Mode of Arrival on Unit : Ambulatory Legal Guardian : Spouse Support Person/Patient Urgent Care Physician : Yes Support Person/Pt Rep Name : Norberto (spouse) Support Person/Pt Rep Contact Information : [phone] Want Family/Rep/Phys Notified of Admit : No Emergency Contact #1 : Norberto Flores Emergency Contact #1 Emergency Contact #1 Relationship : Emergency Contact #2 : na Emergency Contact #2 Phone Number : na Emergency Contact #2 Relationship : na Primary Language : Maldivian Preferred Communication Mode : Verbal Communication Barrier [...] Scale Risk Level : 25-45 Medium Risk [place] Fall Interventions : Adequate lighting, Assistive devices [...] 11/10/2019 13:30 EDT Electronically signed by Francisco [facility] Conversion Any Commodity Sales Deliverer Cerner at 06/23/2022 11:10 AM CDT documented in this encounter Plan of Treatment Upcoming Encounters Date Type Department Care Team (Late st Contact Info) Description 11/03/2024 3:45 PM EDT Appointment [address] [place] [address] documented as of this encounter Visit Diagnoses Not on filedocumented in this encounter Care Teams Technology Services Manager Relationship Specialty Start Date End Date Charles Barrett MD [address] [facility] [address] [place] [address] PCP - General Family Medicine 11/19/22 documented as of this encounter
--- OUTSIDE RECORDS SUMMARY | 2024-09-08 09:19 | XMS_ITS | Patient Health Record ---
Author Organization [facility] Ins titute Address [address] [place] [address] Care Team Providers Care Grab Jack Worker Name Role Phone Fran Hamilton M.D. Primary Care Provider Unavailab VIKI Whitman Unavailable [phone] [facility] Unavailable [phone] Allergies Allergen (clinical drug ingredient) Drug/Non Drug Allergy documented on EMR Reaction Allergy Type Onset Date Status hydromorphone Daludid (uncoded) Unknown Allergy Active Codeine Phosphate Unknown Drug Allergy Active Results Component Value Reference Range Notes NEGRO Reviewed date:01/21/2024 10:26:42 PM Interpretation: Performing Lab: Notes/Report: Atria - ECG Reviewed date:01/21/2024 05:20:05 PM Interpretation: Performing Lab: Notes/Report: Reason For [...] W/U Status Risk Notes Problem Orthostatic hypotension (60594976) Orthostatic hypotension (I95.1) Active confirmed Problem Palpitations (50582282) Palpitations (R00.2) Active confirmed Problem Hypertension (07853998) Hypertension (I10) Active confirmed Problem Cardiomyopathy (54884196) Cardiomyopathy (I42.9) Active confirmed Problem Aortic valve disorder (5263425) Nonrheumatic aortic valve insufficiency (I35.1) Active confirmed Problem Left ventricular diastolic dysfunction (233108988) Left ventricular diastolic dysfunction (I51.9) Active confirmed Problem Sinus node dysfunction (19581767) SSS (sick sinus syndrome) (I49.5) Active confirmed Problem Cardiac pacemaker in situ (887393122) Artificial pacemaker (Z95.0) Active confirmed Problem Old myocardial infarction (7386559) Myocardial infarction greater than 8 weeks ago (I25.2) Active confirmed Problem Bilateral atherosclerosis of arteries of lower limbs (disorder) (88006556439882718 ) Atherosclerosis of artery of both lower extremities (I70.203) Active confirmed Problem Hyperlipidemia (12118313) Hyperlipidemia (E78.5) Active confirmed Problem Coronary artery disease (34175590) Coronary artery disease (I25.10) Active confirmed Problem Atrial fibrillation (26346562) PAF (paroxysmal atrial fibrillation) (I48.0) Active confirmed Problem Cardiomegaly (0234856) Atrial enlargement, left (I51.7) Active confirmed Problem Non-rheumatic mitral regurgitation (141029811) Nonrheumatic mitral valve regurgitation (I34.0) Active confirmed Problem Overweight (466968968) Overweight (BMI 25.0-29.9) (E66.3) Active confirmed Problem Tricuspid valve regurgitation, nonrheumatic (292792524) Tricuspid valve regurgitation, nonrheumatic (I36.1) Active confirmed Problem Aortic valve disorder (7442181) 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) Active confirmed Problem Cardiac syndrome X (finding) (869848275) 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) Active confirmed Vital Signs Heart Rate 77 /min 06/30/2024 Oximetry 99 % 06/30/2024 Blood pressure diastolic 60 mm Hg 06/30/2024 Height 61 in 06/30/2024 Blood pressure systolic 110 mm Hg 06/30/2024 Weight 139 lbs 06/30/2024 BMI 26.26 kg/m2 06/30/2024 Encounters Encounter Location Date Provider Diagnosis [facility] [address] [address] 01/21/2024 VIKI MCPHERSON Coronary artery disease I25.10 [...] of artery of both lower extremities I70.203 [facility] [address] [place] [address] 06/30/2024 Coco Dias Coronary artery dise ase [...] nonrheumatic I36.1 and Nonrheumatic aortic sclerosis I35.8 [facility] [address] [place] [address] 12/31/2023 VIKI ARCENIO [facility] [address] [place] [address] 01/18/2024 VIKI RG MCPHERSON [facility] [address] [place] [address] 01/18/2024 VIKIHERON RG [facility] [address] [place] [address] 02/18/2024 VIKI MCPHERSON Assessments Encounter Date Diagnosis [...] PAF (paroxysmal atrial fibrillation) (ICD-10 - I48.0) [id number] Vasc Score of 4. On AC Eliquis. Following with EP in [place] who recommended to hold Multaq and monitor on PPM Afib burden Mg++ 2.2 (06/20/2024) 01/21/2024 PAF (paroxysmal atrial fibrillation) (ICD-10 - I48.0) [id number] Vasc Score of 4. On AC Eliquis. Following with EP in [place] who recommended to hold Multaq and monitor [...] 11/2022. This is monitored by EP in [place] 06/30/2024 SSS (sick sinus syndrome) (ICD-10 - I49.5) S/P Pacemaker Implantation w/[facility]. Gen change 11/2022. This is monitored by EP in [place] 01/21/2024 Hyperlipidemia (ICD-10 - E78.5) Continue Statin [...] to the patient/family/car egiver. Coco Dias APRN, FITNESS/WELLNESS DIRECTOR-C Plan Of Treatment Next Appt Details Provider Name:VIKI Ruy MCPHERSON, 01/18/2025 03:00:00 PM, [address] [address], [facility] [address], [place], [address], Insurance Providers Payer Name Payer Address Payer Phone Subscriber Number Group Number Insured Name Patient Relationship to Insured Coverage Start Date Coverage End Date [place] of [place] / [facility] [address] [address] [place] [address] [phone] [id number] Dagmar Flores Self - patient is the insured [facility] Commercial [address] [place] [id number] Dagmar Flores Self - patient is the [...]
--- OUTSIDE RECORDS SUMMARY | 2024-09-08 09:19 | XMS_ITS | Patient Health Record ---
Author Organization [facility] Address [address] [place] [address] Care Team Providers Care Shredder Picker Name Role Phone Fran Hamilton Olegario Primary Care Provider Adi Hayes Unavailable [phone] Faby Bonilla Unavailable [phone] Allergies Allergen (clinical drug ingredient) Drug/Non Drug [...] left 2 view (Wi lliams Protocol) Reviewed date:08/30/2024 03:48:36 PM Interpretation: Performing Lab: Notes/Report: Reason For Referral Reason A - LTKA @ [facility] Diagnosis 1 Unilateral primary o steoarthritis, left knee (M17.12) Referral Organization [facility] Referring Provider First Name Adi Referring Provider Last Name Daniele Referring Provider Speciality Physician Referred Organization [facility] Referred Provider Adi Sanabria Referred Address [address],[place], [place],[address],[place] Referred Provider Specialty Orthopedic S urgery Procedure 1 TOTAL KNEE ARTHROPLA STY (62683) Procedure 2 CPTR-ASST DIR MS PX (65967) General Notes Farhana Lin 11/2023 11:07:52 AM [...] o steoarthritis, left knee (M17.12) Referral Organization [facility] Referring Provider First Name Faby Referring Provider Last Name Chad Referring Provider Speciality Nurse Hong keith Referred Provider [facility] Referred Provider Specialty Phuong s Referral Priority Routine Reason Start Outpatient LE physical therapy, ROM and anti-inflammatory modalities, 2-3 times per week, for 4-6 weeks, START on 03/09/24 Diagnosis 1 Unilateral primary o steoarthritis, left knee (M17.12) Referral Organization [facility] Referring Provider First Name Faby Referring Provider Last Name Chad Referring Provider Speciality Nurse Hong keith Referred Provider [facility] Referred Provider Specialty Physical Med icine and Rehabilitation General Notes Divina Quintana 09:47:50 AM >Called LVM to schedule OP PT evaluation., Divina Quintana 02/15/2024 01:16:32 PM >Pt called back, LVM that she wants to goto PT closer to home @ [facility]. Referral Priority Routine Reason Continue Outpatient LE physical therapy, ROM and anti-inflammatory modalities, 2-3 times per week, for 4-6 weeks Diagnosis 1 Unilateral primary o steoarthritis, left knee (M17.12) Referral Organization [facility] Referring Provider First Name Faby Referring Provider Last Name Chad Referring Provider Speciality Nurse Hong keith Referred Provider [facility] Referred Provider Specialty Physical Med icine and Rehabilitation General Notes Kathi Bolton 2024 08:52:02 AM >referral faxed Referral Priority Routine Reason Patient is scheduled for a LTHA on 06/09/24. Patricio Chao. LCFR [place] Diagnosis 1 Unilateral primary o steoarthritis, left hip (M16.12) Referral Organization [facility] Referring Provider First Name Faby Referring Provider Last Name Chad Referring Provider Speciality Nurse Hong keith Referred Organization [facility] Referred Provider Adi Sanabria Referred Address [address] [address],[place], [place],[address], Referred Provider Specialty Orthopedic S urgery Procedure 1 TOTAL HIP ARTHROPLAS TY (18376) General Notes Kathi Bolton 2024 10:24:35 AM >Member Status: Active Coverage, Relationship to Subscriber, Self, Other or Additional Payer Information, Payer: [employer] [facility] Referral Priority Routine Referral Appointment Date 06/09/2024 Reason Start Outpatient LE physical therapy, ROM and anti-inflammatory modalities, 2-3 times per week, for 4-6 weeks, START on 06/23/24 Diagnosis 1 Unilateral primary o steoarthritis, left hip (M16.12) Referral Organization [facility] Referring Provider First Name Faby Referring Provider Last Name Chad Referring Provider Speciality Nurse Hong keith Referred Provider [facility] Referred Provider Specialty Physical Med icine and Rehabilitation Referral Priority Routine Referral Appointment Date 06/03/2024 Reason [facility], START 06/08/24 Physical Therapy as directed for 2 weeks post surgery, START 06/08/24 Diagnosis 1 Unilateral primary o steoarthritis, left hip (M16.12) Referral Organization [facility] Referring Provider First Name Faby Referring Provider Last Name Chad Referring Provider Speciality Nurse Hong keith [facility] Referred Provider Specialty Miscellaneou s General [...] 10 DAYS Oral; Duration: 10 Days Active Midodrine HCl 5 MG [...] osteoarthritis of the pelvic region and thigh (606070514) Unilateral primary osteoarthritis , left hip (M16.12) Active confirmed Problem Unilateral primary osteoarthritis , left knee (M17.12) Active confirmed Vital Signs Heart Rate 70 /min 04/22/2024 Blood pressure diastolic 62 mm Hg 04/22/2024 Height-cm 154.94 cm 07/15/2024 Weight-kg 61.69 kg 07/15/2024 Height 61 in 07/15/2024 Blood pressure systolic 98 mm Hg 04/22/2024 Weight 136 lbs 07/15/2024 BMI 25.69 kg/m2 07/15/2024 Encounters Encounter Location Date Provider Diagnosis [facility] [address] [address] 01/18/2024 Adi Sanabria Pain in left knee M25.562 and Unilateral primary osteoarthritis, left knee M17.12 [facility] [address] [address] 02/17/2024 Faby [place] Unilateral primary osteoarthritis, left knee M17.12 and Pain in left knee M25.562 [facility] [address] [place] [address] 02/23/2024 Faby Chad Unilateral primary osteoarthritis, left knee M17.12 [facility] [address] [place] [address] 02/23/2024 Adi Sanabria Unilateral primary osteoarthritis, left knee M17.12 [facility] [place] [address] [address] 03/11/2024 Faby Chad Unilateral primary osteoarthritis, left knee M17.12 and Pain in left knee M25.562 [facility] [place] [address] [address] 04/11/2024 Faby Chad Unilateral primary osteoarthritis, left knee M17.12 and Pain in left knee M25.562 [facility] [place] [address] [address] 04/22/2024 Adi Sanabria Unilateral primary osteoarthritis, left hip M16.12 and Pain in left hip M25.552 [facility] [place] [address] [address] 05/23/2024 Faby Chad Unilateral primary osteoarthritis, left knee M17.12 ; Pain in left knee M25.562 and Unilateral primary osteoarthritis, left hip M16.12 [facility] [place] [address] [address] 06/03/2024 Faby [place] Unilateral primary osteoarthritis, left hip M16.12 and Pain in left hip M25.552 [facility] [address] [place] [address] 06/07/2024 Faby Chad Unilateral primary osteoarthritis, left hip M16.12 [facility] [address] [place] [address] 06/07/2024 Adi Sanabria Unilateral primary osteoarthritis, left hip M16.12 [facility] [place] [address] [address] 06/24/2024 Faby Chad Unilateral primary osteoarthritis, left hip M16.12 and Pain in left hip M25.552 [facility] [place] [address] [address] 07/15/2024 Faby [place] Unilateral primary osteoarthritis, left hip M16.12 and Pain in left hip M25.552 [facility] [place] [address] [address] 11/20/2023 Ad[place] San[place] [facility] [place] [address] [address] 02/29/2024 Adi Sanabria [facility] [place] [address] [address] 04/08/2024 Adi Sanabria [facility] [place] [address] [address] 2024 Adi Sanabria Assessments Encounter Date Diagnosis [...] Patient will be restricted to homebound status. [facility] will be directed to assist the patient post operatively in their home startin02/24/2024 Patient will start outpatient physical therapy at [facility] on 03/09/2024 No history of DVT or [...] Patient will be restricted to homebound status. [facility] will be directed to assist the patient post operatively in their home startin06/08/24 Patient will start outpatient physical therapy at [facility] on 06/23/24 No history of DVT or [...] 2 view (Daniele Siri col) 06/03/2024 X ray: knee, left 3 view (AP, Lat, Sunri se) 04/06/2024 X ray: knee, left 3 view (AP, Lat, Sunri se) 01/18/2024 X ray: knee, left 3 view (AP, Lat, Sunri se) 03/11/2024 Next Appt Details Provider Name:Faby Bonilla, 01/18/2025 10:00:00 AM, [address], [address], Insurance Providers Payer Name Payer Address Payer Phone Subscriber Number Group Number Insured Name Patient Relationship to Insured Coverage Start Date Coverage End Date Medicare of [place] [employer] [address] [address] [place] [address] [id number] Dagmar Flores Self - patient is the insured [facility] [address] [place] [address] [id number] Dagmar Flores Self - patient is [...]
== END 2024-09-08 23:59 | disposition home or self-care (01) ==
LOC: RAD 09:09
PROVIDERS: PCP Family Medicine; Visit Provider Family Medicine
DX: M81.0 Age-related osteoporosis without current pathological fracture (principal); Z13.9 Encounter for screening, unspecified; M85.80 Other specified disorders of bone density and structure, unspecified site
CPT/HCPCS: 77080

== ENCOUNTER 2024-10-26 13:15 | Observation (INO) | payer MEDICARE, BC, SELFPAY ==
--- OUTSIDE RECORDS SUMMARY | 2023-12-14 09:15 | XMS_ITS ---
Author Organization [facility] [address] [facility] [address] [place] [id number] Care Team Providers Care Motor Expert Name Role Phone Arjun Barrett Primary Care Provider Dai Avalos Unavailable [phone] Allergies Allergen (clinical drug ingredient) Drug/Non Drug [...] review and pick correct strength-formulati on from [employer] options. If intended option is not shown, [...] review and pick correct strength-formulati on from [employer] options. If intended option is not shown, [...] [address] [place] [phone] 12/14/2023 Dai Avalos Hip pain M25.559 Assessments [...] * Dagmar FLORESaDOB: 1950 (74 yo F)Acc No.[id number]:12/14/2023 Progress Notes Patient: Dagmar TORRES Provider: LIBERTAD Connor :1950 A ge:73 Y S ex:Female Date:12/14/2023 Address:[address] Pcp:Arjun Barrett Subjective: * Chief Complaints: * [...] S out [facility]-seizure, passed out 03/2019, [facility] ER-syncope 10/24/2019, [facility] ER - syncope 10/28/2019. * Family History: [...] *Please review and pick correct strength-formulation from [employer]Traksan options. If intended option is not shown, [...] *Please review and pick correct strength-formulation from [employer]ksan options. 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 * Examination: G eneral [...] * Images: Billing Information: * Visit Code: 23648 Office Visit, Est Pt., Level 3. * Procedure Codes: 82765 PULSE OX. * Electronic signature of Anjelica Avalos APRN on 10/26/2024 at 01:26 PM EDT Sign off status: Pending * Provider: LIBERTAD Connor Date: 1 Generated for Antonio maynard/Akira/Kermitsmitting on: 0 10/26/2024 01:26 PM EDT History and Physical Notes * [...]
--- OUTSIDE RECORDS SUMMARY | 2024-01-05 06:00 | XMS_ITS ---
Author Organization [facility] [place] [address] [place] [phone] Care Team Providers Care Digital Marketing Manager Name Role Phone Arjun Barrett Primary Care Provider [phone] Allergies Allergen (clinical drug ingredient) Drug/Non Drug Allergy documented on EMR Reaction Allergy Type Onset Date Status hydromorphone Dilaudid Unknown Drug Allergy Act lico codeine Codeine Unknown Drug Allergy Active REASON FOR VISIT Follow Up [facility] ER - [place] Medications Medication SIG (Take, Route, Frequency, Duration) Notes Start Date End Date Status levETIRAcetam 500 MG 1 tab(s) orally 2 times a day; Duration: 90 days Active Omeprazole 40 MG TAKE 1 CAPSULE DAILY; Duration: 90 days Active Lidoderm 5 % 1 patch remove after 12 hours Externally Once a day; Duration: 30 days 12/14/2023 Active Venlafaxine HCl 37.5 MG TAKE 1 TABLET ONCE DAILY; Duration: 90 days Active Albuterol Sulfate (2.5 MG/3ML) 0.083% 3 ml Inhalation every 6 hrs, prn Active Atorvastatin Calcium 40 MG 1 tab(s) orally once a day; Duration: 90 days Active Eliquis 5 MG 1 by mouth twice daily; Duration: 90 days Active Montelukast Sodium 10 MG 1 tab(s) orally once a day; Duration: 90 days Active Raloxifene HCl 60 MG TAKE 1 TABLET ONCE DAILY; Duration: 90 days Active Gabapentin 300 MG 1 cap(s) orally twice a day 02/12/2022 Active traMADol HCl 50 MG 1 tab(s) orally four times a day as needed 07/23/2022 Active Carafate 1 GM 1 tab(s) orally 4 times a day (before meals and at bedtime) 07/20/2020 Active Nebulizer/Tubing/Mout hpiece - as directed 07/30/2023 Active Zolpidem Tartrate 10 MG 1 tab(s) orally once a day (at bedtime); Duration: 30 day(s) 08/04/2023 Active ALBUTEROL HFA INHALER 200 METERED DOSES/ 8.5GM 2 INHALATIONS QID PRN *Please review for potential replacement for e-prescription and drug interaction check* Active Albuterol Sulfate 0.83MG/ML (2.5MG/3ML) 1 VIAL DIRECTED Q 4-6 HRS PRN PER NEBULIZER; Duration: 90 DAYS *Please review and pick correct strength-formulati on from [employer] options. If intended option is not shown, discontinue and re-order from Newsy Search* Active Vitamin D3 50 MCG (2000 UT) 1 tab(s) orally once a day; Duration: 90 days Active NEBULIZER SET UP FOR ADULT DIRECTED *Please review for potential replacement for e-prescription and drug interaction check* 07/31/2021 Active Ipratropium-Albuterol 3/ 0.5/ 3 ML 3 ML TID *Please review and pick correct strength-formulati on from [employer] options. If intended option is not shown, discontinue and re-order from Quick Search* 07/31/2021 Active Ranolazine ER 500 MG 1 tablet Orally Twice a day Active Vitamin B-1 250 MG 2 tablet Orally twice a day Active Vitamin B-12 1000 MCG 1 tablet Orally Once a day; Duration: 30 day(s) Active Trelegy Ellipta 200-62.5-25 MCG/ACT 1 puff Inhalation Once a day Active Latisse 0.03 % 1 diana applied topically once a day (at bedtime) 07/19/2020 Active Midodrine HCl 5 MG 1 tablet Orally Twice a day Active Vital Signs Blood pressure systolic 110 mm Hg 01/05/20 24 Blood pressure diastolic 62 mm Hg 024 Heart Rate 70 /min 01/05/2024 Height 60 in 01/05/2024 Weight 150.6 lbs 01/05/2024 BMI 29.41 kg/m2 01/05/2024 Encounters Encounter Location Date Provider Diagnosis [facility] [place] [address] [place] [phone] 01/05/2024 Arjun Barrett Fall W19.XXXA and Radial fracture S52.90XA Assessments Encounter Date Diagnosis (ICD Code) Assessment Notes Treatment Notes Treatment Clinical Notes Section Notes 01/05/2024 Fall (ICD-10 - W19.XXXA) 01/05/2024 Radial fracture (ICD-10 - S52.90XA) Leave volar splint in place. Keep follow-up appointment with orthopedics tomorrow. Plan Of Treatment Medication Medication Name Sig Start Date Stop Date Notes Ranolazine ER 500 MG 1 tablet Orally Twice a day Midodrine HCl 5 MG 1 tablet Orally Twice a day Treatment Notes Assessment Notes Radial fracture Leave volar splint i n place. Keep follow-up appointment with orthopedics tomorrow. Next Appt Details Follow Up: prn, Reason: Progress Notes * Penny FLORESalvaro LockaDOB: 1950 (74 yo F)Acc No.[id number]:01/05/2024 Progress Notes Patient: Dagmar TORRES Provider: Arjun Barrett M.D. :1950 A ge:73 Y S ex:Female Date:01/05/2024 Address:[address], [id number] Subjective: * Chief Complaints: * 1 . Follow Up [facility] ER - [place]. * HPI: H PI: Patient comes in today for follow-up on ER visit from 12/30/2023 following a fall at home. She fell down the steps of her motorhome landed on concrete on her left side. She had no loss of consciousness as corroborated by her who was present. She had multiple CT scans and x-rays in the ER with the only significant finding of a nondisplaced distal radial fracture. She was placed in a volar splint and is scheduled to see orthopedics tomorrow. Pt sts that she needs a couple of refills today. * ROS: D ERMATOLOGY: no R joaquin. n o H rosalba. G ASTROENTEROLOGY: no N ausea. n o V omiting. n o D iarrhea.? U ROLOGY: no D ifficulty urinating. n o B lood in urine. * Medical History: A sthma, Pneumonia , ASCVD, HLP, CHF, Pacemaker, Afib, Insomnia , Sleep apnea, Acid reflux, Kidney stones, Bleeding ulcer, Varicose veins, Seizures, Peripheral neuropathy, Osteopenia, Dysplasia on breast biopsy. * Surgical History: p bethany X 3 , right knee arthroscopy 2017, [...] 05/2022. * Hospitalization/Major Diagno stic Procedure: S [facility] ER-seizure, passed out 03/2019, [facility] ER-syncope 10/24/2019, [facility] ER - syncope 10/28/2019, [facility] ER - Fall- Broken Arm 12/30/2023. * Family History: F ather: 83 yrs, [...] every other night. * Medications: T aking Midodrine HCl 5 MG Tablet 1 tablet Orally Twice a day , Taking Ranolazine ER 500 MG Tablet Extended Release 12 Hour 1 tablet Orally Twice a day , Taking Vitamin B-1 250 MG Tablet [...] to Pharmacist: *Please review and pick correct strength- formulation from [employer] Arm [employer]an options. If intended option is not shown, [...] *Please review and pick correct strength-formulation from Tarisaspan options. If intended option is not shown, [...] Delayed Release TAKE 1 CAPSULE DAILY , Taking Lidoderm 5 % Patch 1 patch remove after 12 hours Externally Once a day , Discontinued Medrol 4 MG Tablet Therapy Pack as directed orally daily , Medication List reviewed and reconciled with the patient * Allergies: Olga Juarez. Objective: * Vitals: W t:150.6, Temp:97.9, BP:110/62, HR:70, Nurse:NOÉ, Ht: 60, BMI:29.41. * Examination: G eneral Examination: General Appearance: N AD. H EENT: T angela over the left scalp. No hematoma.. N all: s upple, no lymphadenopathy. H eart: R SR.?Lungs: c lear to auscultation. E xtremities: L eft arm with volar splint in place..? Assessment: * Assessment: 1. F all - W19.XXXA (Primary) 2 . R adial fracture - S52.90XA ? Plan: * Treatment: 2. O thers Refill Midodrine HCl Tablet, 5 MG, 1 tablet, Orally, Twice a day, 180, Refills 1; R efill Ranolazine ER Tablet Extended Release 12 Hour, 500 MG, 1 tablet, Orally, Twice a day, 180, Refills 1.? * Follow Up: p rn * Images: Billing Information: * Visit Code: 35243 Office Visit, Est Pt., Level 3. * Procedure Codes: * Electronic signature of Arjun Barrett MD on 10/26/2024 at 01:24 PM EDT Sign off status: Pending * Provider: Arjun Barrett M.D. Date: Generated for Antonio maynard/Akira/Solis on: 0 10/26/2024 01:24 PM EDT History and Physical Notes * HPI (History of Present Illness) Category Sub-Category Detail Notes Category Not es HPI Pt sts that she needs a couple of refills today Examination Category Sub-Category Detail Notes Category Not es General Examination HEENT: Tender over the left scalp. No hematoma. Heart: RSR Lungs: clear to auscultatio n Extremities: Left arm with volar splint in place. General Appearance: NAD Neck: supple, no lymphaden opathy
--- OUTSIDE RECORDS SUMMARY | 2024-03-26 05:00 | XMS_ITS ---
Author Organization [facility] Address [address] [address] Care Team Providers Care Animal Pathologist Name Role Phone Migration, Provider Unavailable Unavailable REASON FOR VISIT EMR-Julien Encounters Encounter Location Date Provider Diagnosis [facility] [address] [facility] [address] [place] [address] 03/26/2024 Provider Migration Plan Of Treatment No Information Progress Notes * IDA MOTLEY GDOB: [birth year] (74 yo F)Acc No.[id number]:03/26/2024 Patient: Scott ROMEO IDA Ruthie :1950 A ge:73 Y S ex:Female Address:[address] [place] [address] [address], [place], [address] Subjective: * Chief Complaints: * E MR-Julien * * Date:
--- OUTSIDE RECORDS SUMMARY | 2024-03-27 05:00 | XMS_ITS ---
Author Organization [facility] Address [address] [facility] [address] [place] [address] Care Team Providers Care Tipple Mechanic Name Role Phone Migration, Provider Unavailable Unavailable Allergies Allergen (clinical drug ingredient) Drug/Non Drug Allergy documented on EMR Reaction Allergy Type Onset Date Status Hydromorphone / Dilaudid?, Palladone TM (uncoded) Unknown Allergy Active codeine Codeine Unknown Drug Allergy Active REASON FOR VISIT EMR-Julien Encounters Encounter Location Date Provider Diagnosis [facility] [address] [facility] [address] [place] [address] 03/27/2024 Provider Migration Plan Of Treatment No Information Progress Notes * IDA MOTLEY GDOB: [birth year] (74 yo F)Acc No.[id number]:03/27/2024 Patient: IDA TORRES :1950 A ge:73 Y S ex:Female Address:[address] [place] [address] [address], [place], [address] Subjective: * Chief Complaints: * E MR-Julien * Allergies: H ydromorphone / Dilaudid?, Palladone TM: AllergyCodeine: Allergy * * Date:
--- OUTSIDE RECORDS SUMMARY | 2024-05-05 08:45 | XMS_ITS ---
Author Organization [facility] Address [address] [place] [address] Care Team Providers Care Polisher Balance Screwhead Name Role Phone Joy PUENTES, Fran Primary Care Provider Piero Miranda MD, Negro Unavailable REASON FOR VISIT egd Encounters Encounter Location Date Provider Diagnosis [facility] [address] [place] [address] 05/05/2024 Negro Miranda Plan Of Treatment Next Appt Details Provider Name:Negro molina, 09/29/2028 11:00:00 AM, [address] [place], [address], Progress Notes * Penny FLORESena GDOB: [birth year] (74 yo F)Acc No.[id number]:05/05/2024 Patient: Dagmar TORRES Provider: Alicia Oseguera M.D :1950 A ge:73 Y S ex:Female Date:05/05/2024 Address:[address] [place], [place] [address] Pcp:Fran Hamilton MD * Images: * Electronic signature of Catarino Miranda MD on 10/26/2024 at 01:26 PM EDT Sign off status: Pending * Provider: Alicia Oseguera M.D Date: 0 05/05/2024 Generated for Printi ng/Faxing/eTransmitting on: 0 10/26/2024 01:26 PM EDT
--- OUTSIDE RECORDS SUMMARY | 2024-05-31 10:45 | XMS_ITS ---
Author Organization [employer], [facility] Address [address] [place] [address] Care Team Providers Care Bird Keeper Name Role Phone Joy PUENTES, Fran Primary Care Provider Piero Miranda MD, [facility] Unavailable Allergies Allergen (clinical drug ingredient) Drug/Non [...] ORALLY DAILY. RINSE MOUTH AFTER EACH USE. Inhalation; Duration: 30 Days Active Venlafaxine HCl 37.5 MG Oral; Duration: 30 Days Active Sucralfate 1 GM Oral; Duration: 30 Days Active Omeprazole 40 MG Oral; Duration: 30 Days Active Ranolazine ER 1000 MG Oral; Duration: 90 Days Active Gabapentin 300 MG Oral; Duration: 90 Days Active Midodrine HCl 5 MG Oral; Duration: 30 Days Active Montelukast Sodium 10 MG TAKE 1 TABLET O NCE DAILY Oral; Duration: 90 Days Active levETIRAcetam 500 MG Oral; Duration: 90 Days Active Metoprolol Tartrate 25 MG Oral; Duration: 90 Days Active Eliquis 5 MG Oral; Duration: 90 Days Active DULoxetine HCl 30 MG Oral; Duration: 30 Days Active Atorvastatin Calcium 40 MG TAKE 1 TABLET ONCE DAILY Oral; Duration: 90 Days Active Celecoxib 100 MG TAKE ONE CAPSULE BY MOUTH TWICE A DAY WITH FOOD Oral; Duration: Not Available Active ALPRAZolam 0.25 MG Oral; Duration: 10 Days Active Albuterol Sulfate HFA 108 (90 Base) MCG/ACT 1 puff as needed Inhalation every 4 hrs 05/03/2024 Active Albuterol Sulfate (2.5 MG/3ML) 0.083% USE 1 VIAL IN NEBULIZER EVERY 6 HOURS NEEDED Inhalation; Duration: 15 Days Active Social History Tobacco Use: [...] Notes Problem Gastro-esophageal reflux disease without esophagitis (771161435) Gastro-esophag eal reflux disease without esophagitis (K21.9) 06/01/19 Active confirmed Problem Gastroduodenitis (666178697) Gastritis, unspecified, without bleeding (K29.70) 06/01/19 Active confirmed Problem Dysphagia (76699629) Dysphagia, unspecified (R13.10) 06/01/19 Active confirmed Problem History of bariatric surgical procedure (062197637) Bariatric surgery status (Z98.84) 06/01/19 Active confirmed Vital Signs Blood pressure systolic 140 mm Hg 06/01/19 Blood pressure diastolic 77 mm Hg 025 Heart Rate 80 /min 05/31/2024 Weight 145 lbs 05/31/2024 Encounters Encounter Location Date Provider Diagnosis [facility], [place] [address] [place], [place] [address] 05/31/2024 Negro Miranda Gastro-esophageal reflux disease without esophagitis K21.9 ; [...] foods. 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 of PPI use which include [...] Provider Name:Negro molina, 09/29/2028 11:00:00 AM, [address] [place], [address], Progress Notes * Dagmar FLORES GDOB: [birth year] (74 yo F)Acc No.[id number]:05/31/2024 Progress Notes Patient: Dagmar TORRES Provider: Alicia Oseguera M.D :1950 A ge:73 Y S ex:Female Date:05/31/2024 Address:[address] [place] [address] Pcp:Fran Hamilton MD Subjective: * Chief Complaints: [...] Preventive Medicine: YOUR PREVENTIVE WELLNESS PLAN: B NC, Height, and Weight: The Recommended Frequency is: [...] of Catarino Miranda MD on 10/26/2024 at 01:23 PM EDT Sign off status: Pending * Provider: Alicia Oseguera M.D Date: 05/31/2024 Generated for Antonio maynard/Akira/Solis on: 10/26/2024 01:23 PM EDT History and Physical Notes * HPI (History of Present Illness) Category Sub-Category Detail Notes Category Not es Constitutional patient dysph agia is been resolved Examination Category Sub-Category Detail Notes Category Not es General Examination GENERAL APPEARANCE: in no ac augustine distress, well developed, well nourished HEART: no murmurs, regular rate and rhythm, S1, S2 normal LUNGS: clear to auscultatio n bilaterally ABDOMEN: normal, bowel sounds present, soft, nontender, nondistended
--- OUTSIDE RECORDS SUMMARY | 2024-06-29 05:10 | XMS_ITS ---
Author Organization [facility] Address [address] [place] [address] Care Team Providers Care Correction Officer Penitentiary Name Role Phone MAX LOPEZ Primary Care Provider Ashlee Argueta [phone] REASON FOR VISIT r/s chart review Social History Sex Assigned At : Social History Observation Description Sex Assigned At Female Encounters Encounter Location Date Provider Diagnosis [facility] [address] [place] [address] 06/29/2024 Ashlee Argueta Plan Of Treatment Next Appt Details Provider Name:MAX LOPEZ, 01/18/2025 08:30:00 AM, [address] [place] [address], [phone], Provider Name:Kolton Vazquez, 04:40:00 PM, [address] [place] [address], [phone], Provider Name:Girma nance, 05/29/2025 02:00:00 PM, [address] [place] [address], [phone], Progress Notes * IDA MOTLEY GDOB: [birth year] (74 yo F)Acc No.[id number]:06/29/2024 Patient: IDA TORRES Provider: Salma Argueta :1950 A ge:74 Y S ex:Female Date:06/29/2024 Address:[address] [place] [address] , [address], [facility] Pcp:MAX LOPEZ Structured Data:Seasonal : Y es; How did you hear about our practice? : Established patient Subjective: * Chief Complaints: * 1 . R/s chart review. * Medical History: Objective: * Vitals: Assessment: Plan: * Treatment: * Billing Information: * Visit Code: * Procedure Codes: * Electronic signature of Ted Argueta APRN on 10/26/2024 at 01:24 PM EDT Sign off status: Pending * Provider: Salma Argueta Date: 06/29/2024 Generated for Antonio Romo/Solis on: 10/26/2024 01:24 PM EDT
--- OUTSIDE RECORDS SUMMARY | 2024-07-04 10:15 | XMS_ITS ---
Author Organization [facility] [place] Address [address] [address] [address] [place] [address] Care Team Providers Care Currency Counter Name Role Phone Fran Hamilton Primary Care Provider Adi Hayes Unavailable [phone] Faby Bonilla Unavailable [phone] REASON FOR VISIT LTHA, AVENIR Encounters Encounter Location Date Provider Diagnosis [facility] [place] [address] [address] 07/04/2024 Faby Bonilla Plan Of Treatment Next Appt Details Provider Name:Faby Bonilla, 01/18/2025 10:00:00 AM, [address] [address], [place], [address], Progress Notes * SANDRADagmar MENDES GDOB: [birth year] (74 yo F)Acc No.[id number]:07/04/2024 Progress Note Patient: Dagmar TORRES Provider: Scott Bonilla APRN, FNP-C :1950 A ge:74 Y S ex:Female Date:07/04/2024 Address:[address] , [address], [place], [id number] Pcp:Fran Hamilton Subjective: * Chief Complaints: * 1 . LTHA, AVENIR. * Medical History: Objective: * Vitals: Assessment: Plan: * Treatment: * Billing Information: * Visit Code: * Procedure Codes: * Electronic signature of NAV Lux on 10/26/2024 at 01:24 PM EDT Sign off status: Pending * Provider: Scott Bonilla APRN, FNP-C Date: 0 07/04/2024 Generated for Antonio maynard/Akira/Solis on: 0 10/26/2024 01:24 PM EDT
--- OUTSIDE RECORDS SUMMARY | 2024-07-22 05:45 | XMS_ITS ---
Author Organization [facility] [place] Address [address] [facility] [address] [place] [address] Care Team Providers Care Cushion Mat Maker Name Role Phone Fran Hamilton Primary Care Provider Adi Hayes [phone] REASON FOR VISIT LT Hip F/U Encounters Encounter Location Date Provider Diagnosis [facility] [place] [address] [address] 07/22/2024 Adi Sanabria Plan Of Treatment Next Appt Details Provider Name:Faby Bonilla, 01/18/2025 10:00:00 AM, [address] [address], [place], [address], Progress Notes * Dagmar FLORES GDOB: [birth year] (74 yo F)Acc No.[id number]:07/22/2024 Progress Notes Patient: Dagmar TORRES Provider: Aaron Sanabria Jr., MD :1950 A ge:74 Y S ex:Female Date:07/22/2024 Address:[address] [place] [address] [address], [id number] Pcp:Fran Hamilton Subjective: * Chief Complaints: * 1 . LT Hip F/U. * Medical History: Objective: * Vitals: Assessment: Plan: * Treatment: * Billing Information: * Visit Code: * Procedure Codes: * Electronic signature of Adi Sanabria MD on 10/26/2024 at 01:27 PM EDT Sign off status: Pending * Provider: Aaron Sanabria Jr., MD Date: 0 07/22/2024 Generated for Antonio maynard/Akira/Solis on: 0 10/26/2024 01:27 PM EDT
--- OUTSIDE RECORDS SUMMARY | 2024-08-25 07:00 | XMS_ITS ---
[facility] Address [address] [place] [phone] Care Team Providers Care Intern Retail Name Role Phone Arjun Barrett Primary Care Provider [phone] Allergies Allergen (clinical drug ingredient) Drug/Non Drug [...] review and pick correct strength-formulati on from [employer] options. If intended option is not shown, [...] review and pick correct strength-formulati on from [employer] options. 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 (E11.40) Active confirmed Vital Signs Blood pressure systolic 110 mm Hg 08/26/19 25 Blood pressure diastolic 70 mm Hg 025 Heart Rate 68 /min 08/25/2024 Height 60 in 08/25/2024 Weight 140.6 lbs 08/25/2024 BMI 27.46 kg/m2 08/25/2024 Encounters Encounter Location Date Provider Diagnosis [facility] [address] [facility] [address] [place] [address], [place] [id number] 08/25/2024 Arjun Barrett Adult general medica l examination Z00.00 ; Dyslipidemia E78.5 ; Anemia D64.9 ; Osteopenia M85.80 ; Primary osteoarthritis involving multiple joints M15.0 ; Depression with anxiety F41.8 ; Chronic atrial fibrillation I48.20 ; Asthma J45.909 ; Insomnia G47.00 ; Seizure disorder G40.909 ; Type 2 diabetes mellitus with diabetic neuropathy, unspecified whether skilled nursing insulin use E11.40 ; BMI 27.0-27.9,adult Z68.27 [...] diabetes mellitus with diabetic neuropathy, unspecified whether skilled nursing insulin use (ICD-10 - E11.40) 08/25/2024 BMI [...] TIESHA Dagmaralvaro MosleyB: 1950 (74 yo F)Acc No.[id number]:08/25/2024 Annual Wellness Visit Patient: Dagmar TORRES Provider: Arjun Barrett M.D. :1950 A ge:74 Y S ex:Female Date:08/25/2024 Address:[address] [place], [id number] Subjective: * Chief Complaints: * 1 . check up and Annual Wellness Visit. * HPI: H PI: Patient is here today for a scheduled check up and a Medicare Annual Wellness Visit and fasting labs. She has just returned from wintering in [place]. While in [place] she underwent left total hip and left [...] Colonoscopy/ diverticulosis/ [place] 2023, Left total knee/ [place] 2024, Left total hip/ [place] 2024. * Hospitalization/Major Diagno stic Procedure: [facility]-seizure, passed out 03/2019, [facility] ER-syncope 10/24/2019, [facility] ER - syncope 10/28/2019, [facility] ER - Fall- Broken Arm 12/30/2023. [...] review and pick correct strength- formulation from [employer] options. If intended option is not shown, [...] *Please review and pick correct strength-formulation from [employer] options. If intended option is not shown, [...] diabetes mellitus with diabetic neuropathy, unspecified whether marine oil terminal superintendent insulin use - E11.40 1 2. B [place] 27.0-27.9,adult - Z68.27 1 3. P acemaker [...] 2:21:31 PM EDT >faxed to registration Arjun Brarett 08/31/2024 04:54:17 PM EDT > See phone [...] 08:1 9:51 AM EDT > faxed to [facility] SchedulingAPPT 09/08/24 @9:30Neeta Aldridge 09/13/2024 03:47:39 PM [...] * Images: Billing Information: * Visit Code: 63509 Office Visit, Est Pt., Level 3. Modifiers: [...] of Arjun Barrett MD on 10/26/2024 at 01:23 PM EDT Sign off status: Pending * Provider: Arjun Barrett M.D. Date: 0 08/25/2024 Generated for Antonio maynard/Akira/eTransmitting on: 0 10/26/2024 01:23 PM EDT History and Physical Notes * HPI (History of Present Illness) Category Sub-Category Detail Notes Category Not es HPI Patient is here today for [facility] and a Medicare Annual Wellness Visit and fasting labs. She has just returned from wintering in [place]. While in [place] she underwent left total hip and left [...]
--- OUTSIDE RECORDS SUMMARY | 2024-09-17 17:30 | XMS_ITS ---
Author Organization [facility] Address [address] [address] Care Team Providers Care Traffic Coordinator Name Role Phone Joy PUENTES, Fran Primary Care Provider Unavailkeiry leong Jignesh Wade Unavailable [phone] Migration, Provider Unavailable Unavailable Allergies Allergen (clinical drug ingredient) Drug/Non Drug Allergy documented on EMR Reaction Allergy Type Onset Date Status hydromorphone Dilaudid Unknown Drug Allergy Act lico codeine Codeine Unknown Drug Allergy Active [facility] Encounter Medications Medication SIG (Take, [...] Active Encounters Encounter Location Date Provider Diagnosis [facility] [address] [address] 09/17/2024 Provider Migration Plan Of Treatment No Information Progress Notes * IDA MOTLEY GDOB: [birth year] (74 yo F)Acc No.[id number]:09/17/2024 Patient: IDA TORRES Provider: Olegario ervin Migration :1950 A ge:74 Y S ex:Female Date:09/17/2024 Address:[address] [place] [address], [facility] Pcp:Fran Hamilton MD Subjective: * Chief Complaints: [...] Electronic signature of Prov ider Migration on 10/26/2024 at 01:24 PM EDT Sign off status: Pending * Provider: Olegario ervin Migration Date: 0 09/17/2024 Generated for Antonio maynard/Akira/Mariitting on: 10/26/2024 01:24 PM EDT
--- OUTSIDE RECORDS SUMMARY | 2024-10-10 15:15 | XMS_ITS | Encounter Summary ---
Author Organization Healthcare Address [address] [place] [address] Care Team Providers Care Rn Building Name Role Phone Charles Barrett MD Primary Care Provider +1- [phone] Encounter Details Date Type Department Care Team (Latest Contact Info) Description 10/10/2024 3:15 PM EDT - 10/10/2024 11:59 PM EDT Hospital Encounter Cardiac Imaging [address] [place] [address] Pacemaker Discharge Disposition: Home or Self Care [...] often do you attend chur ch or muslim services? More than 4 times per year 11/25/2023 Do you belong to any clubs o r organizations such as cheondoism groups, unions, fraternal or athletic groups, or [...] place to sleep or slept in a [place] [facility] [place] (including now)? No 11/23/2023 Utilities Answer Date [...] times a day if needed for wheezing. Albuterol-Budeso nide 90-80 MCG/ACT aerosol Inhale 90 mcg as needed. atorvastatin (Lipitor) 40 MG tablet 1 tablet (40 mg) 1 (one) time each day. 08/20/2021 celecoxib (CeleBREX) 100 MG capsule Take 1 capsule by mouth 2 times a day. cyanocobalamin (Vitamin B-12) 1000 MCG tablet Take 1 tablet (1,000 mcg) by mouth 1 (one) time each day. dronedarone (Multaq) 400 MG tablet Take 1 tablet by mouth 2 times a day with meals. DULoxetine (Cymbalta) [address] capsule Take 1 capsule by mouth daily. Eliquis 5 MG tablet Take 1 tablet (5 mg) by mouth 2 (two) times a day. You may resume this med in 48 hrs, or 11/15/2022 in the pm 11/13/2022 eszopiclone (Lunesta) 1 MG tablet Take 1 tablet by mouth nightly. gabapentin (Neurontin) 300 MG capsule Take 3 [...] chew, or split. 180 tablet 3 01/07/2024 sucralfate (Carafate) 1 g tablet Take 1 tablet by mouth 4 times a day. thiamine (vitamin B-1) 250 MG tablet Take [...] mouth at night if needed for sleep. documented as of this encounter Plan of Treatment Upcoming Encounters Date Type Department Care Team (Late st Contact Info) Description 11/23/2024 11:40 AM EDT Office Visit [facility] [place] [address] [facility] [place] [address] Indu Grimes MD [address] [place] [address] 12/08/2024 9:40 AM EDT Office Visit [facility] [place] Greg [address] [place] [address] Sylvester Farr MD [address] [place] [address] documented as of this encounter Procedures Procedure Name Priority Date/Time Associated Diagnosis Comments CARDIAC DEVICE CHECK - REMOTE - PACEMAKER Routine 10/10/2024 4:04 PM EDT Pacemaker documented in this encounter Results * CARDIAC DEVICE CHECK - REMOTE - PACEMAKER (10/10/2024 4:04 PM EDT) Anatomical Region Laterality Modality Other Narrative 10/11/2024 9:08 AM EDT Pacemaker remote interrogation. Device successfully sensing intrinsic cardiac events and marking appropriately. Available impedance values demonstrate stable trend within normal limits. Available lead capture thresholds measured without significant change. Adequate safety margin programmed in device permanent outputs. Battery discharge trend stable, appropriate given total time in service. EGMs reviewed against implant indication and diagnosis. Presenting rhythm is atrial sensed with ventricular paced response. Mult AMS entries, longest duration 28 min 36 sec, on Eliquis [place] 5.3% S/p AVN ablation Elyssa Ambriz BARBY CV IMPLANTABLE CARDIAC DEV ICE PROCEDURES Final [...] documented as of this encounter Care Teams Rn Building Relationship Specialty Start Date End Date Charles Barrett MD [address] [place] [address] PCP - General 09/11/21 documented as of this encounter
--- OUTSIDE RECORDS SUMMARY | 2024-10-26 13:23 | XMS_ITS | Encounter Summary ---
Author Organization Healthcare Address [address] [place] [address] Care Team Providers Care Metallographer Name Role Phone Charles Barrett MD Primary Care Provider +1- [phone] Encounter Details Date Type Department Care Team (Latest Contact Info) Description 10/10/2024 Travel Social History Tobacco Use Types Packs/Day [...] week 11/25/2023 How often do you attend [facility] or worship services? More than 4 times [...] Description 11/23/2024 11:40 AM EDT Office Visit [facility] [place] [address] [place] [address] Indu Grimes MD [address] [place] [address] 12/08/2024 9:40 AM EDT Office Visit [facility] [place] Greg [address] [facility] [place] [address] Sylvester Farr MD [address] [place] [address] documented as of this encounter Visit Diagnoses Not on filedocumented in this encounter Additional Health Concerns Assessment Noted Time A fall risk assessment has been complete d for the patient 01/07/2024 11:10 AM EDT A Body Mass Index follow-up plan has been documented for the patient 01/07/2024 11:52 AM EDT documented as of this encounter Care Teams Metallographer Relationship Specialty Start Date End Date Charles Barrett MD [address] [place] [id number] PCP - General 09/11/21 documented as of this encounter
--- OUTSIDE RECORDS SUMMARY | 2024-10-26 13:23 | XMS_ITS | Encounter Summary ---
Author Organization Healthcare Address [address] [place] [address] Care Team Providers Care Automotive Painter Helper Name Role Phone Charles Barrett MD Primary Care Provider +1- [phone] Bozena Milan LPN Unavailable Unavailable Encounter Details Date Type Department Care Team (Late st Contact Info) Description 08/12/2021 Orders Only External Location [address] [place] [address] Provider, External Social History Tobacco [...] Description 11/23/2024 11:40 AM EDT [facility] Visit [facility] [place] [address] [facility] [address] Indu Grimes MD [address] [place] [address] 12/08/2024 9:40 AM EDT Office Visit [facility] [address] [facility] [address] Sylvester Farr MD [address] [place] [address] documented as of this encounter [...] on filedocumented in this encounter Care Teams Automotive Painter Helper Relationship Specialty Start Date End Date Charles Barrett MD [address] [place] [address] PCP - General 09/11/21 Bozena Milan LPN TCM Nurse 11/24/23 12/24/23 documented as of this encounter
--- OUTSIDE RECORDS SUMMARY | 2024-10-26 13:23 | XMS_ITS | Patient Health Record ---
Author Organization [facility] Address [address] [address] Care Team Providers Care Automation Engineering Technician Name Role Phone Migration, Provider Unavailable Unavailable Reason For Referral No Information Encounters Encounter Location Date Provider Diagnosis [facility] [address] [address] 03/26/2024 Provider Migration [facility] [address] [address] 03/27/2024 Provider Migration Plan Of Treatment No Information Insurance Providers Payer Name Payer Address Payer Phone Subscriber Number Group Number Insured Name Patient Relationship to Insured Coverage Start Date Coverage End Date [facility] [address] [place] [address] [id number] TIESHA IDA Self - patient is the insured 9 6 Medicare Part B [address] GINETTE Cooper [id number] TIESHAANTONIIDA Self - patient is the insured 9 6
--- OUTSIDE RECORDS SUMMARY | 2024-10-26 13:23 | XMS_ITS | Encounter Summary ---
Author Organization Healthcare Address [address] [place] [address] Care Team Providers Care Office 365 Consultant Name Role Phone Charles Barrett MD Primary Care Provider +1- [phone] Bozena Milan LPN Unavailable Unavailable Encounter Details Date Type Department Care Team (Late st Contact Info) Description 07/31/2021 Orders Only External Location [address] [place] [address] Provider, External Social History Tobacco Use Types [...] AM EDT Office Visit [facility] [place] [address] [facility]. [address] [phone] Indu Grimes MD [address] [place] [address] 12/08/2024 9:40 AM EDT Office Visit [facility] [address] [facility]. [address] [address] Sylvester Farr MD [address] [place] [address] documented as of this encounter [...] on filedocumented in this encounter Care Teams Office 365 Consultant Relationship Specialty Start Date End Date Charles Barrett MD [address] [place] [address] PCP - General 09/11/21 Bozena Milan LPN TCM Nurse 11/24/23 12/24/23 documented as of this encounter
--- OUTSIDE RECORDS SUMMARY | 2024-10-26 13:25 | XMS_ITS | Clinical Summary ---
Author Organization [facility] ([place], [place], [place], [place]) Address [address] [place] [address] Care Team Providers Care Ortho Nurse Name Role Phone Charles Barrett MD Primary Care Provider +1- [phone] Allergies Active Allergy Reactions Criticality Noted Date [...] Date Jarrett rded Speak language other than Bengali at home Not on file 03/27/2023 Want [...] Info) Description 11/03/2024 3:45 PM EDT Appointment [address] [address] Health Maintenance Due Date Last [...] and Screening (12+) 10/30/2024 10/31/2023 Influenza Vaccine (#1) 2024 11/22/2019, 2018 DTAP/TDAP/TD VACCINES (3 - T d or [...] the next mammogram. At our facility, a [place] marker is positioned over a visible skin [...] cancer. COMPARISON STUDY: 2022 through 2014 from [facility] FINDINGS: Craniocaudal and mediolateral oblique images [...] PART A B CROSS/BLUE SHIELD Care Teams Ortho Nurse Relationship Specialty Start Date End Date Charles Barrett MD [address] [facility] [address] [place] [address] PCP - General Family Medicine 11/19/22
--- OUTSIDE RECORDS SUMMARY | 2024-10-26 13:25 | XMS_ITS | Referral Summary ---
Author Organization [employer] ([place], [place], [place], [place]) Address [address] [place] [address] Care Team Providers Care Political Researcher Name Role Phone Charles Barrett MD Primary Care Provider +1- [phone] Allergies Active Allergy Reactions Criticality Noted Date [...] Date Jarrett rded Speak language other than Wolof at home Not on file 03/27/2023 Want [...] Info) Description 11/03/2024 3:45 PM EDT Appointment [address] [address] Procedures Procedure Name Priority Date/Time Associated Diagnosis [...] the next mammogram. At our facility, a ment[place] marker is positioned over a visible skin [...] cancer. COMPARISON STUDY: 2022 through 2014 from [facility] FINDINGS: Craniocaudal and mediolateral oblique images [...] PART A B CROSS/BLUE SHIELD Care Teams Political Researcher Relationship Specialty Start Date End Date Charles Barrett MD [address] [place] [address] PCP - General Family Medicine 11/19/22
--- OUTSIDE RECORDS SUMMARY | 2024-10-26 13:25 | XMS_ITS | Clinical Summary ---
Author Organization [facility] Address [address] [place] [address] Care Team Providers Care Skiver Box Toe Name Role Phone Charles Barrett MD Primary Care Provider [phone] Allergies Active Allergy Reactions Criticality Noted Date [...] virus 12/10/2023 Facet arthropathy 12/10/2023 History of GA (myocardial infarction) 12/10/2023 Lumbar spondylosis 12/10/2023 Status [...] joint prosth esis 04/02/2023 Current use of skilled nursing anticoagulation 023 Pacemaker generator end of life 11/12/2022 Osteoarthritis of right knee 05/27/2022 Arthritis of right knee 05/22/2022 Overview (12/03/2023): Added automatically from request for surgery [id number] 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 Overview (07/14/2024): Unilateral primary [...] (11/06/2021): Added automatically from request for surgery [id number] SSS (sick sinus syndrome) 09/30/2021 Hypotension, unspecified [...] Acute diastolic heart failure 08/28/2021 08/28/2021 Old GA (myocardial infarction) 08/28/2021 08/07/2022 Encounters Date Type Department Care Team Description 10/10/2024 3:15 PM EDT - 10/10/2024 11:59 PM EDT Hospital Encounter Cardiac Imaging [address] [place] [phone] Pacemaker Discharge Disposition: Home or Self Care 10/10/2024 Travel 08/05/2024 Telephone Cardiac Imaging [address] [place] [address] Tata Johnson 08/02/2024 Telephone [facility] [place] [address] [place] [address] Indu Grimes MD 07/26/2024 Telephone Cardiac Imaging [address] [place] [address] Tata Johnson from Last 3 Months Immunizations Immunization Administration [...] week 11/25/2023 How often do you attend [facility] or muslim services? More than 4 times per year 11/25/2023 Do you belong to any clubs o r organizations such as druze groups, unions, fraternal or athletic groups, or [...] place to sleep or slept in a care home (including now)? No 11/23/2023 Utilities Answer Date Recorded In the past 12 months has th e [employer], gas, oil, or water company threatened to [...] Description 11/23/2024 11:40 AM EDT Office Visit [facility] [address] [place] [phone] Indu Grimes MD [address] [place] [address] 12/08/2024 9:40 AM EDT Office Visit [facility] [address] [place] [phone] Sylvester Farr MD [address] [place] [address] Health Maintenance Due Date Last Done Comments [facility]-Bone Density Scan 1950 [facility]-Medicare Annual Wellness (AWV) 1950 [facility]-/Child/Adol SDOH Screenings 1950 Diabetes: Dental Exam 1958 [facility]-Zoster Vaccines (2 of 3) 12/06/2008 10/11/2008 [facility]-RSV Vaccine: 60+ Years or (1 - 1-dose 75+ series) 06/22/2023 [id number] Vaccine (9 - Pfizer risk 2023- season) 2024 11/11/2023, 11/24/2022, 02/05/2022, Additional history [...] this topic Medical Devices Implanted Type Area Scientific Illustrator Device Identifier Shelf Expiration Date Model / Serial / Lot Pacemaker Assurity Mri Dr - [id number] Implanted:Qty: 1 on 11/13/2022 by Indu Grimes MD at [facility] [id number] 03/08/2024 [id number] / [id number] / [id number] Envelope Tyrx Pm Medium - [id number] Implanted:Qty: 1 on 11/13/2022 by Indu Grimes MD at [facility] [id number] 08/02/2023 [id number] / / [id number] Procedures Procedure Name Priority Date/Time Associated Diagnosis Comments CARDIAC DEVICE CHECK - REMOTE - PACEMAKER Routine 10/10/2024 4:04 PM EDT Pacemaker HEMOGLOBIN A1C Routine 11/23/2023 [...] duration 28 min 36 sec, on Eliquis [place] 5.3% S/p AVN ablation us Elyssa Chavez Pb DIOR CV IMPLANTABLE CARDIAC DEV ICE PROCEDURES Final Result * (ABNORMAL) Hemoglobin A1c (11/23/2023 5:15 AM EDT) Hemoglobin A1c 6.4(H) <5.7 % 11/23/2023 6:44 AM EDT [facility] Blood Venous blood specimen / Unknown Venipuncture / Unknown 11/23/2023 5:15 AM EDT 11/23/2023 5:47 AM EDT Narrative [facility] - 11/23/2023 6:44 AM EDT HA1C Interpretive Data: Diagnosis of Diabetes: Diabetic > or = 6.5% Pre-diabetic 5.7 to 6.4% Non-diabetic < or = 5.6% Glycemic Targets for Type I and Type II Diabetics: Non- Adults <7.0% Adults <6.0% Children and Adolescents <7.5% Source: [place] [employer] Association. Standards of medical care in diabetes,2017. Diabetes Care.2017:40 (suppl 1):S1-S135. HbA1c assay performed by an ion-exchange chromatography method that is certified traceable to the DCCT. us Zackary Gao MD LAB BLOOD ORDERABLES Final Result [facility] [address] [place] [address] * Hepatitis C Antibody - ED (11/22/2023 11:36 AM EDT) Hepatitis C Antibody Negative Negative 11/22/2023 12:54 PM EDT [facility] Blood Venous blood specimen / Unknown Venipuncture / Unknown 11/22/2023 11:36 AM EDT 11/22/2023 12:13 PM EDT Mono Ray MD LAB BLOOD ORDERABLES Final Result [facility] [address] [place] [address] from Last 3 Months or Most Recently Relevant to Health Maintenance [place] [address] [facility] Advance Directives * Full Code (Latest Code Status on File) Date Activated Date Inactivated Comments 11/22/2023 4:59 PM 11/23/2023 7:24 PM Question Answer Comments Patient has decision-making capacity? Yes * Full Code Date Activated Date Inactivated Comments 11/13/2022 1:33 PM 11/13/2022 6:08 PM Question Answer Comments Patient has decision-making capacity? Yes Care Teams Skiver Box Toe Relationship Specialty Start Date End Date Charles Barrett MD [address] [place] [address] PCP - General 09/11/21
--- OUTSIDE RECORDS SUMMARY | 2024-10-26 13:26 | XMS_ITS | Patient Health Record ---
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 If intended option is not shown, [...] once a day; Duration: 90 days Active Fosamax 70 MG 1 tablet 30 minutes before the first food, beverage or medicine of the day with plain water Orally 09/13/2024 Active Albuterol Sulfate (2.5 MG/3ML) 0.083% 3 [...] review and pick correct strength-formulati on from [employer] options. If intended option is not shown, discontinue and re-order from [employer]* 07/31/2021 Active NEBULIZER SET UP FOR ADULT DIRECTED *Please review for potential replacement for e-prescription and drug interaction check* 07/31/2021 Active Immunizations Vaccine Route Administration Date Status Comme nts Zostavax Unknown 10/11/2008 Administered xFluzone High Dose-private (65yr&older) Unknown 11/11/2023 Administered Tetanus Tdap-Adacel (over 7yrs) Unknown 09/09/2004 Administered Tetanus Tdap-Adacel (over 7yrs) Unknown 09/09/2004 Administered Tetanus Tdap-Adacel (over 7yrs) Unknown 10/13/2017 Administered Prevnar (PCV20) IM Intramuscular 09/16/2022 Administered Prevnar (PCV13) Unknown 10/13/2017 Administered PNEUMOVAX 23 VACCINE Unknown 10/06/2006 Administered Fluzone PF Quad (6-35 months) Unknown 12/02/2021 Administered Fluzone High Dose (65yr and older) Unknown 11/22/2019 Administered COVID 19 Pfizer Unknown 03/17/2020 Administered COVID 19 Pfizer Unknown 04/09/2020 Administered COVID 19 Pfizer Unknown 10/31/2020 Administered Problems Problem Type SNOMED Code ICD Code Onset Dates Problem Status W/U Status Risk Notes Problem Coronary arteriosclerosis (89815879) ASCVD (arteriosclerotic cardiovascular disease) (I25.10) Active confirmed Problem Insomnia (761628347) Insomnia (G47.00) Active confirmed Problem Anemia (692456099) Anemia (D64.9) Active confir med Problem Asthma (116046289) Asthma (J45.909) Active conf irmed Problem Mixed anxiety and depressive disorder (893351140) Depression with anxiety (F41.8) Active confirmed Problem Seizure disorder (333603553) Seizure disorder (G40.909) Active confirmed Problem 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) Active confirmed Problem Chronic pain syndrome (039994574) Chronic pain syndrome (G89.4) Active confirmed Problem Chronic atrial fibrillation (201472248) Chronic atrial fibrillation (I48.2) Active confirmed Problem Heart disease (65739706) Heart disease, unspecified (I51.9) Active confirmed Problem Old myocardial infarction (2653487) History of CA (myocardial infarction) (I25.2) Active confirmed Problem Cardiac pacemaker in situ (562386133) Pacemaker (Z95.0) Active confirmed Problem Primary osteoarthritis (261333222) Primary osteoarthritis involving multiple joints (M15.0) Active confirmed Problem Gastroesophageal reflux disease (941106346) Gastroesophageal reflux disease, esophagitis presence not specified (K21.9) Active confirmed Problem Dyslipidemia (002720942) Dyslipidemia (E78.5) Active confirmed Problem Transient ischemic attack (660554262) TIA (transient ischemic attack) (G45.9) Active confirmed Problem Artificial knee joint present (876660120832) Status post right knee replacement (Z96.651) Active confirmed Problem Asthma without status asthmaticus (79654761) Asthma, unspecified asthma severity, unspecified whether complicated, unspecified whether persistent (J45.909) Active confirmed Problem Diabetic peripheral neuropathy associated with type 2 diabetes mellitus (7917236975026) Type 2 diabetes mellitus with diabetic neuropathy, unspecified whether retirement insulin use (E11.40) Active confirmed Problem Chronic atrial fibrillation (793875154) Chronic atrial fibrillation (I48.20) Active confirmed Vital Signs Heart Rate 68 /min 08/25/2024 Blood pressure diastolic 70 mm Hg 08/25/2024 Height 60 in 08/25/2024 Blood pressure systolic 110 mm Hg 08/25/2024 Weight 140.6 lbs 08/25/2024 BMI 27.46 kg/m2 08/25/2024 Encounters Encounter Location Date Provider Diagnosis [facility] [address] [facility] [address] [place] [id number] 11/13/2023 Angelica Cabrera Hives L50.9 [facility] [address] [facility] [address] [place] [id number] 12/14/2023 Dai Avalos Hip pain M25.559 [facility] [address] [facility] [address] [place] [id number] 01/05/2024 R Samy Barrett Fall W19.XXXA and Ra dial fracture S52.90XA [facility] [address] [facility] [address] [place] [id number] 08/25/2024 R Samy Ortegat Adult general medica l examination Z00.00 ; Dyslipidemia E78.5 ; Anemia D64.9 ; Osteopenia M85.80 ; Primary osteoarthritis involving multiple joints M15.0 ; Depression with anxiety F41.8 ; Chronic atrial fibrillation I48.20 ; Asthma J45.909 ; Insomnia G47.00 ; Seizure disorder G40.909 ; Type 2 diabetes mellitus with diabetic neuropathy, unspecified whether retirement insulin use E11.40 ; BMI 27.0-27.9,adult Z68.27 ; Pacemaker Z95.0 and Gastroesophageal reflux disease, esophagitis presence not specified K21.9 [facility] [address] [facility] [address] [place] [id number] 12/14/2023 R Samy [place] [facility] [address] [facility] [address] [place] [id number] 08/11/2024 R Samy [place]et [facility] [address] [facility] [address] [place] [id number] 08/31/2024 R Samy Arnold [facility] [address] [facility] [address] [place] [id number] 09/13/2024 R Samy Hassanfleet Assessments Encounter Date Diagnosis (ICD Code) Assessment [...] diabetes mellitus with diabetic neuropathy, unspecified whether retirement insulin use (ICD-10 - E11.40) 08/25/2024 BMI 27.0-27.9,adult (ICD-10 - Z68.27) 08/25/2024 Pacemaker (ICD-10 - Z95.0) 08/25/2024 Gastroesophageal reflux disease, esophagitis presence not specified (ICD-10 - K21.9) Plan Of Treatment No Information Insurance Providers Payer Name Payer Address Payer Phone Subscriber Number Group Number Insured Name Patient Relationship to Insured Coverage Start Date Coverage End Date MEDICARE PART B [address] [address] [place] [address] [id number] Dagmar Flores Self - patient is the insured [facility] [address] [place] [address] [phone] [id number] Dagmar Flores Self - patient is the [...] Colonoscopy/ diverticulosis/ [place] 2023 [place] 2024 [place] 2024 Hospitalization History Reason Date(Month/Year) [facility] ER - Fall- Bro[place] 12/30/2023 [facility] ER - syncope 10/28/2019 [facility] ER-syncope 10/24/2019 [facility] ER-seizure, passed out 03/2019
--- OUTSIDE RECORDS SUMMARY | 2024-10-26 13:26 | XMS_ITS | Patient Health Record ---
Author Organization [facility] Address [address] [place] [address] Care Team Providers Care Automation Engineering Manager Name Role Phone MAX LOPEZ Primary Care Provider HENRRY CONNORS Unavailable [phone] Kolton Vazquez Unavailable [phone] Ashlee Argueta Unavailable [phone] Paulina Roque Unavailable [phone] Allergies Allergen (clinical drug ingredient) Drug/Non Drug Allergy documented on EMR Reaction Allergy Type Onset Date Status Aspirin (ASA) Gastric ulcer Drug Allergy Active Codeine Unknown Drug Allergy 04/25/2005 Active hydromorphone Dilaudid Unknown Drug Allergy 04/25/2005 Ac tive trazodone traZODone HCl headache Drug Allergy 01/23/2021 Ac tive Results Component Value Reference Range Notes COMPREHENSIVE METABOLIC PANE L Reviewed date:02/09/2024 12:19:33 PM Interpretation: Performing Lab:TP, [facility]-Htyyp2287 [address] [place], [id number] Matthew Jameson MD Notes/Report: 0; 0; 0 [...] Reviewed date:02/11/2024 03:55:32 PM Interpretation: Performing Lab:JANE [facility]-Yjkyt8573 [address] [place]FL[address] Matthew Jameson MD Notes/Report: 0 FASTING:NO FASTING: NO REFLEXIVE URINE CULTURE NO C ULTURE INDICATED Echocardiogram, transthoraci c Reviewed date:06/30/2024 08:28:19 AM Interpretation: Performing Lab: Notes/Report: CT Scan : Brain Reviewed date:06/30/2024 08:28:25 AM Interpretation: Performing Lab: Notes/Report: X ray : CHEST PA LATERAL Reviewed date:06/30/2024 08:28:30 AM Interpretation: Performing Lab: Notes/Report: Carotid Ultrasound Reviewed date:06/30/2024 08:28:35 AM Interpretation: Performing Lab: Notes/Report: X ray : Pelvis Reviewed date:06/30/2024 08:28:40 AM Interpretation: Performing Lab: Notes/Report: EKG Reviewed date:03/14/2024 03:58:50 PM Interpretation: Performing Lab: Notes/Report: CT Scan : Chest Reviewed date:01/26/2024 01:56:14 PM Interpretation: Performing Lab: Notes/Report: Urine analysis (IH) Reviewed date:01/25/2024 03:47:13 PM Interpretation: Performing Lab: Notes/Report: COMPREHENSIVE METABOLIC PANE L Reviewed date:07/01/2024 10:47:02 AM Interpretation: Performing Lab:TP [facility]-Jrgub9289 [address] [place] Matthew Jameson MD Notes/Report: FASTING: UNKNOWN GLUCOSE [...] Reviewed date:07/01/2024 10:46:42 AM Interpretation: Performing Lab:TP, [facility]-Kjfdn6309 [address] [place], OccceXA[address] Matthew Jameson MD Notes/Report: FASTING: UNKNOWN WHITE [...] MPV 10.2 7.5-12.5 fL ABSOLUTE NEUTROPHILS 3582 3468-9442 cells/uL ABSOLUTE LYMPHOCYTES 2035 850-3900 cells/uL ABSOLUTE MONOCYTES 566 200-950 cells/uL ABSOLUTE EOSINOPHILS 267 15-500 cells/uL ABSOLUTE BASOPHILS 52 0-200 cells/uL NEUTROPHILS 55.1 LYMPHOCYTES 31.3 MONOCYTES 8.7 EOSINOPHILS 4.1 BASOPHILS 0.8 VITAMIN B12/FOLATE, SERUM PA LINDA Reviewed date:07/01/2024 10:47:53 AM Interpretation: Performing Lab:TP, [facility]-Fkwow8002 [address] [id number] Matthew Jameson MD Notes/Report: FASTING: UNKNOWN VITAMIN B12 729 778-7912 pg/mL FOLATE, SERUM 6.3 Reference Range Low: <3.4 Borderline: 3.4-5.4 Normal: >5.4 IRON, TOTAL Reviewed date:07/01/2024 10:46:27 AM Interpretation: Performing Lab:TP, [facility]-Gitlb7793 [address] [id number] Matthew Jameson MD Notes/Report: FASTING: UNKNOWN IRON, TOTAL 30 45-160 mcg/dL Ferritin, Serum Reviewed date:07/01/2024 10:47:40 AM Interpretation: Performing Lab:[facility]1377 [address] [place] Matthew Jameson MD Notes/Report: FASTING: UNKNOWN FERRITIN 68 16-288 ng/mL COMPREHENSIVE METABOLIC PANE L Reviewed date:03/16/2024 08:41:15 AM Interpretation: Performing Lab:TP [facility] [address] AehtyYV[address] Matthew Jameson MD Notes/Report: FASTING: UNKNOWN GLUCOSE [...] Default Reviewed date:03/16/2024 08:41:30 AM Interpretation: Performing Lab:Josi LARA-Pvqvb1313 [address] [id number] Matthew Jameson MD Notes/Report: FASTING: UNKNOWN WHITE [...] MPV 9.7 7.5-12.5 fL ABSOLUTE NEUTROPHILS 3035 5341-6238 cells/uL ABSOLUTE LYMPHOCYTES 2038 850-3900 cells/uL ABSOLUTE MONOCYTES 364 200-950 cells/uL ABSOLUTE EOSINOPHILS 123 15-500 cells/uL ABSOLUTE BASOPHILS 39 0-200 cells/uL NEUTROPHILS 54.2 LYMPHOCYTES 36.4 MONOCYTES 6.5 EOSINOPHILS 2.2 BASOPHILS 0.7 SPECIMEN INTEGRITY COMPROMIS ED Reviewed date:03/18/2024 12:04:23 PM Interpretation: Performing Lab:JANE [facility] Aysha-Pbjfd4060 [address] WnlzrBI[address] Matthew Jameson MD Notes/Report: FASTING: UNKNOWN SPECIMEN INTEGRITY COMPROMISED Whole blood, unspun or partially spun gel barrier tube was received more than 6 hours since collection. A false elevation of K, Phos and LD as well as a false decrease in glucose may occur due to prolonged contact with red cells. TSH+FREE T4 Reviewed date:03/18/2024 12:04:23 PM Interpretation: Performing Lab:JANE [facility]-Xnfzv4518 [address] [place] LpotnBU[address] Matthew Jameson MD Notes/Report: FASTING: UNKNOWN TSH 1.18 0.40-4.50 mIU/L T4, FREE 0.9 0.8-1.8 ng/dL CBC/Diff Ambiguous Default Reviewed date:01/21/2024 08:23:56 AM Interpretation: Performing Lab:TP, [facility]-Ilcmm4936 [address] OwylcFX[address] Matthew Jameson MD Notes/Report: FASTING WHITE BLOOD [...] MPV 9.5 7.5-12.5 fL ABSOLUTE NEUTROPHILS 2698 4261-4331 cells/uL ABSOLUTE LYMPHOCYTES 1265 533-9053 cells/uL ABSOLUTE MONOCYTES 367 200-950 cells/uL ABSOLUTE EOSINOPHILS 97 15-500 cells/uL ABSOLUTE BASOPHILS 61 0-200 cells/uL NEUTROPHILS 52.9 LYMPHOCYTES 36.8 MONOCYTES 7.2 EOSINOPHILS 1.9 BASOPHILS 1.2 URINALYSIS, COMPLETE Reviewed date:01/20/2024 08:01:28 AM Interpretation: Performing Lab: Notes/Report: URINALYSIS, COMPLETE Reviewed date:01/20/2024 08:01:28 AM Interpretation: Performing Lab: Notes/Report: Lipid Panel Reviewed date:01/19/2024 09:21:45 AM Interpretation: Performing Lab:JANE [facility] Aysha-Hewjy[address] [id number] Matthew Jameson MD Notes/Report: FASTING CHOLESTEROL, TOTAL [...] LDL-C. Jack ORTIZ et al. TRISH. 2013;310(19): 1380-6226 (http://education.Dataloop.IO.Smarp/faq/F AQ164) CHOL/HDLC RATIO 2.4 <5.0 (calc) NON HDL CHOLESTEROL 100 <130 mg/dL (calc) For patients with diabetes plus 1 major ASCVD risk factor, treating to a non-HDL-C goal of <100 mg/dL (LDL-C of <70 mg/dL) is considered a therapeutic option. Hemoglobin A1c Reviewed date:01/21/2024 08:24:03 AM Interpretation: Performing Lab:[facility]-Ozyia7[address] [id number] Matthew Jameson MD Notes/Report: FASTING HEMOGLOBIN A1c [...] A1c for diagnosis of diabetes for children. EKG Reviewed date:01/07/2024 02:12:25 PM Interpretation: Performing Lab: Notes/Report: X ray : Femur, left Reviewed date:01/07/2024 02:12:35 PM Interpretation: Performing Lab: Notes/Report: CT Scan : Thoracic Spine W/O Contrast Reviewed date:01/07/2024 02:12:44 PM Interpretation: Performing Lab: Notes/Report: CT Scan [...] date:01/07/2024 02:13:40 PM Interpretation: Performing Lab: Notes/Report: X ray : Elbow, left Reviewed date:01/07/2024 02:13:53 PM Interpretation: Performing Lab: Notes/Report: X ray : Forearm, left Reviewed date:01/07/2024 02:14:03 PM Interpretation: Performing Lab: Notes/Report: X ray : Hip, left Reviewed date:01/07/2024 02:14:12 PM Interpretation: Performing Lab: Notes/Report: X ray : Knee, left Reviewed date:01/07/2024 02:14:29 PM Interpretation: Performing Lab: Notes/Report: CT Scan : Head, without cont rast Reviewed date:01/07/2024 02:14:41 PM Interpretation: Performing Lab: Notes/Report: COMPREHENSIVE METABOLIC PANE L Reviewed date:01/19/2024 12:40:01 PM Interpretation: Performing Lab:JANE, [facility]-Apyck6441 [address] [place], [id number] Matthew Jameson MD Notes/Report: FASTING GLUCOSE 87 [...] 7 6-29 U/L CBC/Diff Ambiguous Default Reviewed date:03/28/2024 01:34:05 PM Interpretation: Performing Lab:JANE [facility]-[address]ws[address], JyrdcNQ[address] Matthew Jameson MD Notes/Report: FASTING: UNKNOWN WHITE [...] MPV 10.1 7.5-12.5 fL ABSOLUTE NEUTROPHILS 2348 9677-5477 cells/uL ABSOLUTE LYMPHOCYTES 7305 729-1549 cells/uL ABSOLUTE MONOCYTES 361 200-950 cells/uL ABSOLUTE EOSINOPHILS 101 15-500 cells/uL ABSOLUTE BASOPHILS 21 0-200 cells/uL NEUTROPHILS 55.9 LYMPHOCYTES 32.6 MONOCYTES 8.6 EOSINOPHILS 2.4 BASOPHILS 0.5 Pathology Report Reviewed date:05/19/2024 08:18:15 AM Interpretation: Performing Lab: Notes/Report: Vitamin B12 Reviewed date:02/09/2024 12:34:12 PM Interpretation: Performing Lab:Josi LARAa422[address] YipaFL[address] Matthew Jameson MD Notes/Report: 0; 0; 0 FASTING:NO FASTING: NO VITAMIN B12 025 534-6133 pg/mL Folate (Folic Acid), Serum- Reviewed date:02/09/2024 12:34:12 PM Interpretation: Performing Lab:Josi LARAa4[address] MandujanoaFL[address] Matthew Jameson MD Notes/Report: 0; 0; 0 FASTING:NO FASTING: NO FOLATE, SERUM 6.2 Reference Range Low: <3.4 Borderline: 3.4-5.4 Normal: >5.4 Ferritin, Serum Reviewed date:02/09/2024 12:34:12 PM Interpretation: Performing Lab:Josi LARAa422[address] YipaFL[address] Matthew Jameson MD Notes/Report: 0; 0; 0 FASTING:NO FASTING: NO FERRITIN 25 16-288 ng/mL IRON, TOTAL Reviewed date:02/11/2024 03:55:11 PM Interpretation: Performing Lab:Josi LARAa422[address] YipaFL[address] Matthew Jameson MD Notes/Report: 0 FASTING:NO FASTING: NO IRON, TOTAL 58 45-160 mcg/dL URINE CULTURE Reviewed date:02/11/2024 03:52:47 PM Interpretation: Performing Lab:Josi LARAa4[address] [id number] Matthew Jameson MD Notes/Report: 0 FASTING:NO FASTING: [...] Reviewed date:02/11/2024 03:52:15 PM Interpretation: Performing Lab:JANE [facility]-Ykilt8899 [place], DfzxeJX[address] Matthew Jameson MD Notes/Report: 0; 0; 0 FASTING:NO FASTING: NO PARTIAL THROMBOPLASTIN TIME, ACTIVATED 28 23-32 sec This test has not been validated for monitoring unfractionated heparin therapy. For testing that is validated for this type of therapy, please refer to the Heparin Anti-Xa assay (test code 81926). For additional information, please refer to http://education.uberVU/faq/FA Q159 (This link is being provided for informational/educatio nal purposes only.) INR 1.1 Reference Range 0.9-1.1 Moderate-intensity Warfarin Therapy 2.0-3.0 Higher-intensity Warfarin Therapy 3.0-4.0 PT 11.5 9.0-11.5 sec CBC/Diff Ambiguous Default Reviewed date:02/09/2024 12:21:03 PM Interpretation: Performing Lab:JANE [facility]-Hngdl7578 [place], NhproOX[address] Matthew Jameson MD Notes/Report: 0; 0; 0 [...] MPV 10.0 7.5-12.5 fL ABSOLUTE NEUTROPHILS 3214 7385-3995 cells/uL ABSOLUTE LYMPHOCYTES 8171 582-1571 cells/uL ABSOLUTE MONOCYTES 390 200-950 cells/uL ABSOLUTE EOSINOPHILS 62 15-500 cells/uL ABSOLUTE BASOPHILS 31 0-200 cells/uL NEUTROPHILS 61.8 LYMPHOCYTES 28.9 MONOCYTES 7.5 EOSINOPHILS 1.2 BASOPHILS 0.6 Esophagogastroduodenoscopy ( EGD) Reviewed date:05/09/2024 10:21:03 AM Interpretation: Performing Lab: Notes/Report: Reason For [...] Status W/U Status Risk Notes Problem Anemia (434529253) Anemia, unspecified (D64.9) Active confirmed Problem Thrombophilia (526222887) Other thrombophilia (D68.69) Active confirmed Problem Type 2 diabetes mellitus with peripheral angiopathy (832066458) Type 2 diabetes mellitus with diabetic peripheral angiopathy without gangrene (E11.51) 018 Active confirmed Problem Mild recurrent major depression (01005962) Major depressive disorder, recurrent, mild (F33.0) Inactive confirmed Problem Moderate recurrent major depression (41301786) Major depressive disorder, recurrent, moderate (F33.1) Active confirmed Problem Affective psychosis (509572500) Unspecified mood [affective] disorder (F39) Inactive confirmed Problem Alzheimer's disease (14513047) Alzheimer's disease, unspecified (G30.9) Active confirmed Problem Obstructive sleep apnea syndrome (disorder) (30850490) Obstructive sleep apnea (adult) (pediatric) (G47.33) 015 Active confirmed Problem Polyneuropathy (02656471) Polyneuropathy, unspecified (G62.9) Inactive confirmed Problem 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) Active confirmed Problem Essential hypertension (98833488) Essential (primary) hypertension (I10) 011 Active confirmed Problem 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) (30590950855479323 ) 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 (I25.118) Active confirmed Problem Paroxysmal atrial fibrillation (343254932) Paroxysmal atrial fibrillation (I48.0) Active confirmed Problem Sick sinus syndrome (08341509) Sick sinus syndrome (I49.5) 013 Active confirmed Problem Carotid artery occlusion (721860210) Occlusion and stenosis of unspecified carotid artery (I65.29) 016 Active confirmed [facility]-726 400- Problem Atherosclerosis of aorta (38669156) Atherosclerosis of aorta (I70.0) 014 Active confirmed Problem Allergic rhinitis (62811626) Allergic rhinitis, unspecified (J30.9) 018 Active confirmed Problem Simple chronic bronchitis (57488893) Simple chronic bronchitis (J41.0) 017 Active confirmed Problem Chronic obstructive pulmonary disease (91866072) Chronic obstructive pulmonary disease, unspecified (J44.9) Inactive confirmed Problem Gastro-esophageal reflux disease without esophagitis (728644056) Gastro-esophageal reflux disease without esophagitis (K21.9) Inactive confirmed Problem Disorder of bone (89539230) Other specified disorders of bone density and structure, other site (M85.88) Inactive confirmed Problem Menopause (073716156) Menopausal and female climacteric states (N95.1) Inactive confirmed Problem Heartburn (59758127) Heartburn (R12) Active confirmed Problem Cervix excision (028525873) Acquired absence of cervix with remaining uterus (Z90.712) 015 Problem resolved confirmed Problem Cardiac pacemaker in situ (169925861) Presence of cardiac pacemaker (Z95.0) 016 Active confirmed Problem History of bariatric surgical procedure (182590646) Bariatric surgery status (Z98.84) 011 Problem resolved confirmed Problem Prediabetes (570186484) Prediabetes (R73.03) Inactive confirmed Problem Type II diabetes mellitus without complication (686176431) Type 2 diabetes mellitus without complication, without long-term current use of insulin (E11.9) Inactive confirmed Problem Chronic bronchitis (65486329) Chronic bronchitis, unspecified chronic bronchitis type (J42) Inactive confirmed Problem Alcohol dependence (52380096) Uncomplicated alcohol dependence (F10.20) Active confirmed Problem Osteoarthritis of knee (410211223) Primary osteoarthritis of right knee (M17.11) Active confirmed Problem Senile purpura (40351920) Senile purpura (D69.2) Active confirmed Problem Osteoarthritis of knee (502728788) Primary osteoarthritis of left knee (M17.12) Active confirmed Problem Iron deficiency anemia (62103545) Iron deficiency anemia, unspecified iron deficiency anemia type (D50.9) Active confirmed Problem Anemia (346373781) Anemia, unspecified type (D64.9) Active confirmed Problem Chronic atrial fibrillation (108031462) Chronic atrial fibrillation (I48.20) Inactive confirmed Problem Insomnia (907960281) Insomnia, unspecified type (G47.00) Active confirmed Problem Angina (626137807) Atheroscleros is of bois forte coronary artery of bo[place]te heart with angina pectoris (I25.119) Inactive confirmed Problem Hypertensive heart failure (53281802) 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) Active confirmed Problem Seizure (56447139) Seizure (R56.9) Active confi rmed Problem Chronic sinusitis (24595697) Sinusitis, unspecified chronicity, unspecified location (J32.9) Inactive confirmed Problem Pre-op evaluation (588588002) Pre-op evaluation (Z01.818) Inactive confirmed Problem Localized, primary osteoarthritis of the pelvic region and thigh (278352444) Primary osteoarthritis of left hip (M16.12) Active confirmed Problem Peripheral vascular disease (933118559) PAD (peripheral artery disease) (I73.9) Active confirmed Problem Dyslipidemia (432989036) Dyslipidemia (E78.5) Active confirmed Problem Type 2 diabetes mellitus with other specified complication, without long-term current use of insulin (E11.69) Active confirmed Problem Thrombophilia (926027712) Thrombophilia (D68.59) Inactive confirmed Problem Malignant melanoma of skin (51225233) Malignant melanoma, unspecified site (C43.9) Active confirmed Problem Chronic diastolic heart failure (036512560) Chronic heart failure with preserved ejection fraction (HFpEF) (I50.32) Active confirmed Problem Diastolic heart failure (702183023) Heart failure with preserved left ventricular function [...] undefined Encounters Encounter Location Date Provider Diagnosis [facility] [address] [place] [address] 01/18/2024 MAX LOPEZ Dyslipidemia E78.5 ; Essential (primary) hypertension I10 and Type 2 diabetes mellitus with diabetic peripheral angiopathy without gangrene E11.51 [facility] [place] [address] 01/26/2024 MAX LOPEZ Hospital discharge follow-up Z09 ; 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 I25.118 ; Essential (primary) hypertension I10 ; Heart failure with preserved left ventricular function (HFpEF) I50.30 ; Spontaneous ecchymoses R23.3 ; Chronic atrial fibrillation I48.20 ; Pre-op evaluation Z01.818 ; Anemia, unspecified type D64.9 ; Other thrombophilia D68.69 and Simple chronic bronchitis J41.0 [facility] [place] [address] 02/15/2024 MAX LOPEZ Type 2 diabetes pernell itus with diabetic peripheral angiopathy without gangrene E11.51 ; Essential (primary) hypertension I10 ; Dyslipidemia E78.5 and Primary osteoarthritis of left knee M17.12 [facility] [place] [address] 03/14/2024 MAX LOPEZ Primary osteoarthrit is of left knee M17.12 ; Anemia, unspecified type D64.9 ; Heartburn R12 ; Dehydration E86.0 ; Fatigue, unspecified type R53.83 ; Polyarthralgia M25.50 ; Dyslipidemia E78.5 ; Prediabetes R73.03 and Encounter for other administrative examinations Z02.89 [facility] [place] [address] 03/23/2024 MAX LOPEZ Anemia, unspecified type D64.9 ; Essential (primary) hypertension I10 ; Uncomplicated alcohol dependence F10.20 and Heartburn R12 [facility] [place] [address] 05/02/2024 MAX LOPEZ Essential (primary) hypertension I10 ; Anemia, unspecified type D64.9 ; Dyslipidemia E78.5 ; Primary osteoarthritis of left knee M17.12 ; Heartburn R12 ; Major depressive disorder, recurrent, moderate F33.1 ; Primary osteoarthritis of left hip M16.12 ; Seizure R56.9 ; Other specified hypotension I95.89 and Allergic rhinitis, unspecified J30.9 [facility] [address] [place] [address] 05/09/2024 Paulina Bondslisbet Simple chronic bronc hitis J41.0 ; Sinusitis, unspecified chronicity, unspecified location J32.9 and Other fatigue R53.83 [facility] [address] [place] [address] 05/26/2024 HENRRY CONNORS Encounter for genera l [...] menopausal state Z78.0 and BMI 26.0-26.9,adult Z68.26 [facility] [place] [address] [place] [address] 06/30/2024 HENRRY CONNORS Anemia, unspecified D64.9 ; Syncope, unspecified syncope type R55 ; Low serum potassium E87.6 ; B12 deficiency E53.8 ; Left hip pain M25.552 and Hospital discharge follow-up Z09 [facility] [address] [place] [address] 07/18/2024 Kolton Vazquez Essential (primary) hypertension I10 ; 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 I25.118 ; Dyslipidemia E78.5 ; Type 2 diabetes mellitus with other specified complication, without long-term current use of insulin E11.69 ; Iron deficiency anemia, unspecified iron deficiency anemia type D50.9 and Major depressive disorder, recurrent, moderate F33.1 [facility] [address] [place] [address] 10/19/2024 MAX LOPEZ [facility] [address] [place] [address] 01/04/2024 MAX LOPEZ [facility] [address] [place] [address] 05/04/2024 MAX LOPEZ [facility] [address] [place] [address] 05/12/2024 MAX LOPEZ [facility] [address] [place] [address] 06/23/2024 MAX LOPEZ [facility] [address] [place] [address] 06/27/2024 MAX LOPEZ Primary osteoarthrit is of left hip M16.12 ; Near syncope R55 ; Critical illness myopathy G72.81 and Hypokalemia E87.6 [facility] [address] [place] [address] 06/30/2024 MAX LOPEZ Assessments Encounter Date Diagnosis (ICD Code) Assessment Notes Treatment Notes Treatment Clinical Notes Section Notes 01/18/2024 Dyslipidemia (ICD-10 - E78.5) 01/26/2024 Atherosclerotic heart disease of bois forte coronary artery with other forms of angina [...] DASH diet. 07/18/2024 Atherosclerotic heart disease of bois [place]te coronary artery with other forms of angina [...] reports she did colonoscopy in 2023 in [place]. Will bring info in 2024. 03/23/2024 Uncomplicated [...] pt, she is doing MMG annually in [place]. Will bring the info in Dec 2024. [...] pt, she does eye exam annually with [facility]. MR requested. 05/02/2024 Heartburn [...] 06/23/2024 Other HPI ,exam assessment, plan and database operator performed by Ashlee Argueta APRN - - [...] 03/14/2024 Other HPI ,exam assessment, plan and database operator done in collaboration with Maninder Lala PA-C [...] pt's home proivder's location during today's visit: [facility] (clinic) Video/audio: 05/26/2024 Other *[facility] Directive in file. pt reports she will do hip surgery in June and is planning to go to [place] in July, and will return to [place] in 2024. 06/30/2024 Other RECOMMENDATIONS given include: [...] Details Provider Name:MAX LOPEZ, 01/18/2025 08:30:00 AM, [facility] [place], [address], Provider Name:Kolton Vazquez, 04:40:00 PM, [facility] [place], [address], Provider Name:Girma nance, 05/29/2025 02:00:00 PM, [address] [place] [address], [id number], Insurance Providers Payer Name Payer Address Payer Phone Subscriber Number Group Number Insured Name Patient Relationship to Insured Coverage Start Date Coverage End Date [place] Part B 9 [facility] [address] [address] [place] [phone] [id number] IDA ADRIAN Self - patient is the insured 4 [employer] and [employer] [facility] [address] [place], [place] [phone] [id number] IDA MOTLEY Self - patient is [...] uterus (resolved 02/04/2016) undefined 2023.01.15 CXR ASVDa. [id number] 7 Alcohol use -patient has 3 or more drink s of wine almost on a daily basis Surgical History Surgery Date(Month/Year) Arthroscopy: Left knee 2004 Breast Biopsy Hysterectomy Partial (ovaries remaining) 1986 Liyah Fundoplasty 1996 Pacemaker Implantation ([facility])- 2014 Gastroplasty 1985 Eusebia en Y gastric bypass Bilateral upper lid lift 05/10/2021 Total Knee Replacement-right 05/27/2022 knee revision 04/21/23 left hip replacement 06/07/2024 Hospitalization History Reason Date(Month/Year) Hysterectomy 1986 DX syncope @ [facility] 06/19/2024-06/23/2024 DX lt hip pain @ [facility] 06/07/2024-06/08/2024 DX fall @ [facility] ER VISIT 12/30/2023 melanoma removed from arm 02/17/2022 pt passed out 10/09/20-10/11/20 Right knee replacement 07/21/2017
--- OUTSIDE RECORDS SUMMARY | 2024-10-26 13:26 | XMS_ITS | Clinical Summary ---
[facility] Organization [facility] Address [address] [place] [address] Care Team Providers Care Pump Tester Name Role Phone Charles Barrett MD Primary Care Provider Medications sodium-potassiu m-magnesium sulfates (Suprep Bowel Prep Kit) 17.5-3.13-1.6 GM/177ML solution oral solution Use as directed by provider for colonoscopy prep 354 mL 4 Active Social History Tobacco Use Types Packs/Day Years Used Date Smoking Tobacco: Never Assessed Abuse Screen Answer Date Recorded Unsafe at Home or Work/School Not on file Feels Threatened by Someone? Not on file 01/2023 Does Anyone Keep You from Co ntacting Others or Doint Things Outside the Home? Not on file 12/17/2022 Physical Sign of Abuse Present Not on file 1 Housing Stability Answer Date Recorded Current Living Arrangements Not on file 12/07 Potentially Unsafe Housing Conditions Not on stephani e 12/17/2022 Family and Community Support Answer Rosalio e Recorded Help with Day-to-Day Activities Not on file 12/17/2022 Lonely or Isolated Not on file 12/17/2022 Employment Answer Date Recorded Do you want help finding or keeping work or a kaylee b? Not on file 12/17/2022 Disabilities Answer Date Recorded Concentrating, Remembering, or Making Decisions Difficulty Not on file 12/17/2022 Doing Errands Independently Difficulty Not on fi le 12/17/2022 Education Answer Date Recorded Help with school or training? Not on file Preferred Language Not on file 12/17/2022 Comments Unknown Sex and Gender Information Value Date Recorded Sex Assigned at Not on file Legal Sex Female 7:57 AM EDT Gender Identity Not on file Sexual Orientation Not on file Plan of Treatment Health Maintenance Due Date Last Done Comments DXA SCAN 1950 ZOSTER VACCINE (2 of 3) 12/06/2008 10/11/2008 ANNUAL PHYSICAL 08/20/2018 HEPATITIS C SCREENING 08/20/2018 RSV Vaccine - Adults (1 - 1- dose 75+ series) 06/22/2023 COVID-19 Vaccine (8 2023-2 5 season) 2023 11/24/2022, 02/05/2022, 11/27/2021, Additional history exists INFLUENZA VACCINE 12/07/2024 11/24/2022, , 11/22/2019 TDAP/TD VACCINES (3 - Td or Tdap) 10/14/2027 018, 09/09/2004 Pneumococcal Vaccine 50+ Completed 023, 10/13/2017, 10/06/2006 MAMMOGRAM Discontinued 10/30/2022, 09/07, 09/12/2020, Additional history exists COLONOSCOPY Discontinued 09/08/2023, 09/06/2018 COLORECTAL CANCER SCREENING Discontinued COLOGUARD Discontinued COLON CANCER SCREENING 5 YEA R SIGMOIDOSCOPY Discontinued CT COLONOGRAPHY Discontinued FECAL OCCULT BLOOD TEST Discontinued FIT Testing (1 year) Discontinued Procedures Procedure Name Priority Date/Time Associated Diagnosis Comments SCANNED - COLONOSCOPY 09/08/2023 from Last 3 Months or Most Recently Relevant to Health Maintenance Results * Colonoscopy, Scan (09/08/2023) Lb Arce MD CHART REVIEW TABS Daniella gallardo Result from Last 3 Months or Most Recently Relevant to Health Maintenance Insurance MEDICARE A & B Member Subscriber Plan / Payer (Ef fective 1998-Present) Name:Dagmar Flores Member ID:[id number] Relation to Subscriber:Self Name:Dagmar Flores Subscriber ID:[id number] Payer ID:[id number] Group ID:Not on file Type:Not on file Address: [facility] [id number] [place] Care Teams Pump Tester Relationship Specialty Start Date End Date Charles Barrett MD [facility] [address] [facility] [place] [address] [place] [address] PCP - General Family Medicine 11/01/18
--- OUTSIDE RECORDS SUMMARY | 2024-10-26 13:26 | XMS_ITS | Patient Health Record ---
Author Organization [employer], [facility] Address [address] [place] [address] Care Team Providers Care Business Editor Name Role Phone Joy PUENTES, Fran Primary Care Provider Piero Miranda MD, [facility] Unavailable Allergies Allergen (clinical drug ingredient) [...] Anemia due to chronic blood loss (disorder) (864348930) Iron deficiency anemia secondary to blood loss (chronic) (D50.0) 05/03/19 Active confirmed Problem Gastro-esophageal reflux disease without esophagitis (470260095) Gastro-esophag eal reflux disease without esophagitis (K21.9) 06/01/19 Active confirmed Problem Gastroduodenitis (127353765) Gastritis, unspecified, without bleeding (K29.70) 06/01/19 Active confirmed Problem Heartburn (05801202) Heartburn (R12) 05/03/19 Active confirmed Problem Dysphagia (02553708) Dysphagia, unspecified (R13.10) 06/01/19 Active confirmed Problem History of bariatric surgical procedure (513126173) Bariatric surgery status (Z98.84) 06/01/19 Active confirmed Vital Signs Heart Rate 80 /min 05/31/2024 Blood pressure diastolic 77 mm Hg 05/31/2024 Height 61 in 05/03/2024 Blood pressure systolic 140 mm Hg 05/31/2024 Weight 145 lbs 05/31/2024 BMI 27.39 kg/m2 05/03/2024 Procedures Procedure Date Ordered Date Performed Result Body Sit e EGD 05/03/2024 N/A Encounters Encounter Location Date Provider Diagnosis [facility] [address] [place] [address] 05/05/2024 Negrojesus Miranda [facility], [facility] [address] [place] [address] 05/31/2024 Negro Ferdinandtangtracy Gastro-esophageal reflux disease without esophagitis K21.9 ; Gastritis, unspecified, without bleeding K29.70 ; Dysphagia, unspecified R13.10 and Bariatric surgery status Z98.84 [facility], [facility] [address] [place] [address] 05/03/2024 Negrojesus Miranda Iron deficiency anemia secondary [...] foods. Also discussed with the patient the residential side effects of PPI use which include [...] foods. Also discussed with the patient the residential side effects of PPI use which include [...] 09/29/2028 11:00:00 AM, [address], [place], [address], Insurance Providers Payer Name Payer Address Payer Phone Subscriber Number Group Number Insured Name Patient Relationship to Insured Coverage Start Date Coverage End Date MEDICARE [address] [place] [address] [id number] Sandra, Dagmar Self - patient is the insured [facility] ([facility]) [address] [place] [address] [phone] [id number] Dagmar Flores Self - patient is the [...]
--- OUTSIDE RECORDS SUMMARY | 2024-10-26 13:26 | XMS_ITS | Encounter Summary ---
Author Organization Healthcare Address [address] [place] [address] Care Team Providers Care Whizzer Name Role Phone Charles Barrett MD Primary Care Provider [phone]- [phone] Encounter Details Date Type Department Care Team (Late st Contact Info) Description 08/02/2024 Telephone [facility] [place] [address] [facility] [place] [address] Indu Grimes MD [address] [place] [address] Social History Tobacco Use Types [...] often do you attend chur ch or confucianist services? More than 4 times per year 11/25/2023 Do you belong to any clubs o r organizations such as tenriism groups, unions, fraternal or athletic groups, or [...] place to sleep or slept in a intermediate (including now)? No 11/23/2023 Utilities Answer Date [...] the 07/27 appointment. Best contact number: Other: [phone] Optimal time of day to reach caller: [...] will receive notification of the communication/outcome via [employer]. documented in this encounter Plan of Treatment Upcoming Encounters Date Type Department Care Team (Late st Contact Info) Description 11/23/2024 11:40 AM EDT Office Visit [facility] [place] [address] [facility] [address] Indu Grimes MD [address] [place] [address] 12/08/2024 9:40 AM EDT Office Visit [facility] [place] [address] [address] Sylvester Farr MD [address] [place] [address] documented as of this encounter Visit Diagnoses Not on filedocumented in this encounter Additional Health Concerns Assessment Noted Time A fall risk assessment has been complete d for the patient 01/07/2024 11:10 AM EDT A Body Mass Index follow-up plan has been documented for the patient 01/07/2024 11:52 AM EDT documented as of this encounter Care Teams Whizzer Relationship Specialty Start Date End Date Charles Barrett MD [address] [place], [place] [address] PCP - General 09/11/21 documented as of this encounter
--- OUTSIDE RECORDS SUMMARY | 2024-10-26 13:26 | XMS_ITS | Patient Health Record ---
Author Organization [facility] Address [address] [address] Care Team Providers Care Pharmacist Apprentice Name Role Phone Joy PUENTES, Fran Primary Care Provider UnavailWaed Lamb Unavailable [phone] Migration, Provider Unavailable Unavailable Allergies Allergen (clinical drug ingredient) Drug/Non Drug Allergy documented on EMR Reaction Allergy Type Onset Date Status hydromorphone Dilaudid Unknown Drug Allergy Act lico codeine Codeine Unknown Drug Allergy Active Reason For Referral No Information Medications Medication SIG (Take, Route, Frequency, Duration) Notes Start Date End Date Status Lasix *Please review a nd pick correct strength-formulatio n from Medispan options. If intended option is not shown, discontinue and re-order from Quick Search* Active Advil *Please review a nd pick correct [...] Active Encounters Encounter Location Date Provider Diagnosis [facility] [address] [facility] [address] [place] [address] 09/17/2024 Provider Migration Plan Of Treatment No Information Insurance Providers Payer Name Payer Address Payer Phone Subscriber Number Group Number Insured Name Patient Relationship to Insured Coverage Start Date Coverage End Date Medicare Part B [address] [place] [address] [id number] IDA MOTLEY Self - patient is the insured 4 [facility] [address] [place] [address] [id number] ROSY MOTLEY Spouse - patient is the spouse of the insured 5 Medical (General) History Medical History History ICD Code Angina Atrial Fibrillation fractures Esophageal reflux heart murmur Hyperlipidemia pneumonia Respiratory Disease Arthritis Bronchitis Type II diabetes Congestive Heart Failure Edema heart disease Seizures ulcers Surgical History Surgery Date(Month/Year) bariatic surgery Tonsillectomy Appendectomy Hysterectomy Pacemaker
--- OUTSIDE RECORDS SUMMARY | 2024-10-26 13:26 | XMS_ITS | Patient Health Record ---
Author Organization [facility] Address [address] [place] [address] Care Team Providers Care Senior Counsel Name Role Phone Fran Hamilton M.D. Primary Care Provider Unavailab VIKI Whitman Unavailable [phone] [facility] Unavailable [phone] Allergies Allergen (clinical drug ingredient) Drug/Non Drug [...] W/U Status Risk Notes Problem Orthostatic hypotension (07312081) Orthostatic hypotension (I95.1) Active confirmed Problem Palpitations (97982625) Palpitations (R00.2) Active confirmed Problem Hypertension (89316864) Hypertension (I10) Active confirmed Problem Cardiomyopathy (59964439) Cardiomyopathy (I42.9) Active confirmed Problem Aortic valve disorder (4253038) Nonrheumatic aortic valve insufficiency (I35.1) Active confirmed Problem Left ventricular diastolic dysfunction (047102832) Left ventricular diastolic dysfunction (I51.9) Active confirmed Problem Sinus node dysfunction (31786239) SSS (sick sinus syndrome) (I49.5) Active confirmed Problem Cardiac pacemaker in situ (785448645) Artificial pacemaker (Z95.0) Active confirmed Problem Old myocardial infarction (7123878) Myocardial infarction greater than 8 weeks ago (I25.2) Active confirmed Problem Bilateral atherosclerosis of arteries of lower limbs (disorder) (29192526004387167 ) Atherosclerosis of artery of both lower extremities (I70.203) Active confirmed Problem Hyperlipidemia (35052367) Hyperlipidemia (E78.5) Active confirmed Problem Coronary artery disease (96757877) Coronary artery disease (I25.10) Active confirmed Problem Atrial fibrillation (12822580) PAF (paroxysmal atrial fibrillation) (I48.0) Active confirmed Problem Cardiomegaly (9652827) Atrial enlargement, left (I51.7) Active confirmed Problem Non-rheumatic mitral regurgitation (475976428) Nonrheumatic mitral valve regurgitation (I34.0) Active confirmed Problem Overweight (991887438) Overweight (BMI 25.0-29.9) (E66.3) Active confirmed Problem Tricuspid valve regurgitation, nonrheumatic (833768861) Tricuspid valve regurgitation, nonrheumatic (I36.1) Active confirmed Problem Aortic valve disorder (3705036) 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) Active confirmed Problem Cardiac syndrome X (finding) (147340843) 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) Active confirmed Vital Signs Heart Rate 77 /min 06/30/2024 Oximetry 99 % 06/30/2024 Blood pressure diastolic 60 mm Hg 06/30/2024 Height 61 in 06/30/2024 Blood pressure systolic 110 mm Hg 06/30/2024 Weight 139 lbs 06/30/2024 BMI 26.26 kg/m2 06/30/2024 Encounters Encounter Location Date Provider Diagnosis [facility] [address] [address] 01/21/2024 VKII MCPHERSON Coronary artery disease I25.10 ; Cardiac [...] of artery of both lower extremities I70.203 [facility] [address] [place] [address] 06/30/2024 Coco Arun Coronary artery dise ase I25.10 ; Cardiac [...] nonrheumatic I36.1 and Nonrheumatic aortic sclerosis I35.8 [facility] [address] [place] [address] 12/31/2023 VIKIHERON RG MCPHERSON [facility] [address] [place] [address] 01/18/2024 VIKI RG MCPHERSON [facility] [address] [place] [address] 01/18/2024 VIKIHERON RG MCPHERSON [facility] [address] [place] [address] 02/18/2024 VIKI MCPHERSON Assessments Encounter Date Diagnosis [...] statin, she is tolerating therapy well 01/21/2024 Coronary artery disease (ICD-10 - I25.10) [...] reponse to antianginal therapy. Cont same regimen 01/21/2024 Recurrent syncope (ICD-10 - R55) Resolved after PPM 06/30/2024 Cardiac microvascular disease (ICD-10 - I25.85) Good reponse to antianginal therapy. Cont same regimen 06/30/2024 Recurrent syncope (ICD-10 - R55) Resolved after PPM 06/30/2024 PAF (paroxysmal atrial fibrillation) (ICD-10 - I48.0) [id number] Vasc Score of 4. On AC Eliquis. Following with EP in [place] who recommended to hold Multaq and monitor on PPM Afib burden Mg++ 2.2 (06/20/2024) 01/21/2024 PAF (paroxysmal atrial fibrillation) (ICD-10 - I48.0) [id number] Vasc Score of 4. On AC Eliquis. Following with EP in [place] who recommended to hold Multaq and monitor on PPM Afib burden 01/21/2024 Orthostatic hypotension (ICD-10 - I95.1) Patient is responding well to medical therapy. Patient advised to stay well hydrated (0.5 oz per lb of body weight), wear compression stockings and liberalize sodium intake 06/30/2024 Orthostatic hypotension (ICD-10 - I95.1) Patient [...] 11/2022. This is monitored by EP in [place] 01/21/2024 SSS (sick sinus syndrome) (ICD-10 - I49.5) S/P Pacemaker Implantation w/[facility]. Gen change 11/2022. This is monitored by EP in [place] 01/21/2024 Hyperlipidemia (ICD-10 - E78.5) Continue Statin [...] 2 grams daily. Avoid refined sugar 01/21/2024 Aortic sclerosis (ICD-10 - I70.0) 01/21/2024 Mild tricuspid regurgitation (ICD-10 - I07.1) ECHO (02/13/2023) revealed mild TR 06/30/2024 Nonrheumatic aortic valve insufficiency (ICD-10 - I35.1) ECHO (06/20/2024) revealed Mild -mod aortic insufficiency. Low normal LV systolic function. The calculated EF is 60-65% 06/30/2024 Nonrheumatic mitral valve regurgitation (ICD-10 - I34.0) ECHO (06/20/2024) revealed mild MR 01/21/2024 Overweight (BMI 25.0-29.9) (ICD-10 - E66.3) Discussed Lifestyle Modifications on today's encounter. I recommend exercising 30 mins per session, 5 x per week. I recommend dietary restrictions, eat more lean protein, fruits and vegetables, and plant based oils (olive oil). Avoid canned fruits, vegetables, and soup, no red meat or cheese. Limit Sodium 2 grams daily. Avoid refined sugar 01/21/2024 Nonrheumatic aortic valve insufficiency (ICD-10 - I35.1) ECHO (02/2023) revealed Mild aortic insufficiency. Low normal LV systolic function. The calculated EF is 50-55% 06/30/2024 Atherosclerosis of artery of both lower extremities (ICD-10 - I70.203) Normal NEGRO with no signs or symptoms of peripheral arterial disease. 06/30/2024 Tricuspid valve regurgitation, nonrheumatic (ICD-10 - I36.1) ECHO (02/13/2023) revealed mild TR 01/21/2024 Nonrheumatic mitral valve regurgitation (ICD-10 - I34.0) ECHO (02/13/2023) revealed mild MR 01/21/2024 Atherosclerosis of artery of both lower extremities (ICD-10 - I70.203) Normal NEGRO with no signs or symptoms of peripheral arterial disease. 06/30/2024 Nonrheumatic aortic sclerosis (ICD-10 - I35.8) Outside records reviewed on today's encounter which consisted of diagnostic testing-CTA 01/21/2024 Other The patient was provided the [...] to the patient/family/car egiver. Coco Dias APRN, [employer]-C Plan Of Treatment Next Appt Details Provider Name:VIKIHERON MCPHERSON, 01/18/2025 03:00:00 PM, [address] [address], [facility] [address], [address], Insurance Providers Payer Name Payer Address Payer Phone Subscriber Number Group Number Insured Name Patient Relationship to Insured Coverage Start Date Coverage End Date [place] [facility] [address] [address] [place] [address] [id number] Dagmar Flores [place] - [place] [address] [phone] [id number] Dagmar Flores Self - patient is the [...] Date(Month/Year) Cardiac Catheterization Pacermaker Implant & Ablation 2003 New Pacemaker Implant 2014 Breast Reduction 2015 Gastric Bypass 2010 Hysterectomy 1985 T&A Breast Biopsies 2020 GEN change 11/2022 Hospitalization History Reason Date(Month/Year) unstable angina Nov 2023
--- OUTSIDE RECORDS SUMMARY | 2024-10-26 13:26 | XMS_ITS | Clinical Summary ---
Author Organization [facility] Address [address] [facility], [address] [place] [address] Care Team Providers Care Industrial Diamond Polisher Name Role Phone Charles Barrett MD Primary Care Provider +1- [phone] Social History Tobacco Use Types Packs/Day Years [...] of Treatment Not on file Insurance MEDICARE [place] F[place] Care Teams Industrial Diamond Polisher Relationship Specialty Start Date End Date Charles Barrett MD [address] [facility] [address] [facility] [address] [place] [address] PCP - General 06/09/19
--- NOTE | 2024-10-26 13:27 | ECG_ITS ---
APPROVED REPORT Exam: Resting ECG HR:70 bpm ECG Measurements Heart Rate 70 AXES MS 167 P 233 QRSd 174 QRS -83 QT 463 T 79 QTc 483 Conclusion ELECTRONIC ATRIAL PACEMAKER ELECTRONIC VENTRICULAR PACEMAKER ABNORMAL RHYTHM ECG UNCONFIRMED REPORT Electronically signed by : Lb Rivas, 10/27/2024 15:59:21
--- OUTSIDE RECORDS SUMMARY | 2024-10-26 13:27 | XMS_ITS | Encounter Summary ---
Author Organization [employer] ([place], [place], [place], [place]) Address [address] [place] [address] Care Team Providers Care Court Assistant Name Role Phone Charlse Barrett MD Primary Care Provider [phone]- [phone] Encounter Details Date Type Department Care Team (Late st Contact Info) Description 11/10/2019 Transcribed Document [facility] [facility] [place] [address] ProviderRaúl MD [address] [place] [address] Social History Tobacco Use Types Packs/Day [...] Info) Description 11/03/2024 3:45 PM EDT Appointment [address] [place] [address] documented as of this encounter Visit Diagnoses Not on filedocumented in this encounter Care Teams Court Assistant Relationship Specialty Start Date End Date Charles Barrett MD [address] [facility] [address] [place] [address] PCP - General Family Medicine 11/19/22 documented as of this encounter
--- OUTSIDE RECORDS SUMMARY | 2024-10-26 13:27 | XMS_ITS | Patient Health Record ---
Author Organization [facility] Address [address] [place] [address] Care Team Providers Care Director Of Kids Name Role Phone Fran Hamilton Olegario Primary Care Provider Adi Hayes Unavailable [phone] Faby Bonilla Unavailable [phone] Allergies Allergen (clinical drug ingredient) Drug/Non Drug [...] For Referral Reason A - LTKA @ [facility] Diagnosis 1 Unilateral primary o steoarthritis, left knee (M17.12) Referral Organization [facility] Referring Provider First Name Adi Referring Provider Last Name Daniele Referring Provider Speciality Physician Referred Organization [facility] Referred Provider Adi Sanabria Referred Address [address],[place], [place],[address],[place] Referred Provider Specialty Orthopedic S urgery Procedure 1 TOTAL KNEE ARTHROPLA STY (47346) Procedure 2 CPTR-ASST DIR MS PX (59111) General Notes Farhana Lin 11/2023 11:07:52 AM [...] o steoarthritis, left knee (M17.12) Referral Organization [facility] Referring Provider First Name Faby Referring Provider Last Name Chad Referring Provider Speciality Nurse Hong keith Referred Provider [facility] Referred Provider Specialty Phuong s Referral Priority Routine Reason Start Outpatient LE physical therapy, ROM and anti-inflammatory modalities, 2-3 times per week, for 4-6 weeks, START on 03/09/24 Diagnosis 1 Unilateral primary o steoarthritis, left knee (M17.12) Referral Organization [facility] Referring Provider First Name Faby Referring Provider Last Name Chad Referring Provider Speciality Nurse Hong keith Referred Provider [facility] Referred Provider Specialty Physical Med icine and Rehabilitation General Notes Divina Quintana 09:47:50 AM >Called LVM to schedule OP PT evaluation., Divina Quintana 02/15/2024 01:16:32 PM >Pt called back, LVM that she wants to goto PT closer to home @ [place]. Referral Priority Routine Reason Continue Outpatient LE physical therapy, ROM and anti-inflammatory modalities, 2-3 times per week, for 4-6 weeks Diagnosis 1 Unilateral primary o steoarthritis, left knee (M17.12) Referral Organization [facility] Referring Provider First Name Faby Referring Provider Last Name Chad Referring Provider Speciality Nurse Hong keith Referred Provider [facility] Referred Provider Specialty Physical Med icine and Rehabilitation General Notes Kathi Bolton 2024 08:52:02 AM >referral faxed Referral Priority Routine Reason Patient is scheduled for a LTHA on 06/09/24. Patricio Chao. LCFR [place] Diagnosis 1 Unilateral primary o steoarthritis, left hip (M16.12) Referral Organization [facility] Referring Provider First Name Faby Referring Provider Last Name Chad Referring Provider Speciality Nurse Hong keith Referred Organization [facility] Referred Provider Adi Sanabria Referred Address [address] [address],[place], [place],[address], Referred Provider Specialty Orthopedic S urgery Procedure 1 TOTAL HIP ARTHROPLAS TY (14048) General Notes Kathi Bolton 2024 10:24:35 AM >Member Status: Active Coverage, Relationship to Subscriber, Self, Other or Additional Payer Information, Payer: [employer]UE [employer] Referral Priority Routine Referral Appointment Date 06/09/2024 Reason Start Outpatient LE physical therapy, ROM and anti-inflammatory modalities, 2-3 times per week, for 4-6 weeks, START on 06/23/24 Diagnosis 1 Unilateral primary o steoarthritis, left hip (M16.12) Referral Organization [facility] Referring Provider First Name Faby Referring Provider Last Name Chad Referring Provider Speciality Nurse Hong keith Referred Provider [facility] Referred Provider Specialty Physical Med icine and Rehabilitation Referral Priority Routine Referral Appointment Date 06/03/2024 Reason [facility] 2 weeks post surgery, START 06/08/24 Physical Therapy as directed for 2 weeks post surgery, START 06/08/24 Diagnosis 1 Unilateral primary o steoarthritis, left hip (M16.12) Referral Organization [facility] Referring Provider First Name Faby Referring Provider Last Name Chad Referring Provider Speciality Nurse Hong keith Referred Provider [facility] Referred Provider Specialty Miscellaneou s [...] osteoarthritis of the pelvic region and thigh (098467934) Unilateral primary osteoarthritis , left hip (M16.12) Active confirmed Problem Osteoarthritis of knee (510097222) Unilateral primary osteoarthritis , left knee (M17.12) Active confirmed Vital Signs Heart Rate 70 /min 04/22/2024 Height-cm 154.94 cm 07/15/2024 Blood pressure diastolic 62 mm Hg 04/22/2024 Weight-kg 61.69 kg 07/15/2024 Height 61 in 07/15/2024 Blood pressure systolic 98 mm Hg 04/22/2024 Weight 136 lbs 07/15/2024 BMI 25.69 kg/m2 07/15/2024 Encounters Encounter Location Date Provider Diagnosis [facility] [address] [address] 01/18/2024 Adi Sanabria Pain in left knee M25.562 and Unilateral primary osteoarthritis, left knee M17.12 [facility] [place] [address] [address] 02/17/2024 Faby [place] Unilateral primary osteoarthritis, left knee M17.12 and Pain in left knee M25.562 [facility] [address] [place] [address] 02/23/2024 Faby Chad Unilateral primary osteoarthritis, left knee M17.12 [facility] [address] [place] [address] 02/23/2024 Adi Sanabria Unilateral primary osteoarthritis, left knee M17.12 [facility] [place] [address] [address] 03/11/2024 Faby [place] Unilateral primary osteoarthritis, left knee M17.12 and Pain in left knee M25.562 [facility] [place] [address] [address] 04/11/2024 Faby Chad Unilateral primary osteoarthritis, left knee M17.12 and Pain in left knee M25.562 [facility] [place] [address] [address] 04/22/2024 Adi Sanabria Unilateral primary osteoarthritis, left hip M16.12 and Pain in left hip M25.552 [facility] [place] [address] [address] 05/23/2024 Faby Chad Unilateral primary osteoarthritis, left knee M17.12 ; Pain in left knee M25.562 and Unilateral primary osteoarthritis, left hip M16.12 [facility] [place] [address] [address] 06/03/2024 Faby Chad Unilateral primary osteoarthritis, left hip M16.12 and Pain in left hip M25.552 [facility] [address] [place] [address] 06/07/2024 Faby [place] Unilateral primary osteoarthritis, left hip M16.12 [facility] [address] [place] [address] 06/07/2024 Adi Sanabria Unilateral primary osteoarthritis, left hip M16.12 [facility] [address] [address] 06/24/2024 Faby [place] Unilateral primary osteoarthritis, left hip M16.12 and Pain in left hip M25.552 [facility] [place] [address] [address] 07/15/2024 Faby [place] Unilateral primary osteoarthritis, left hip M16.12 and Pain in left hip M25.552 [facility] [address] [address] 11/20/[address] [facility] [place] [address] [address] 02/29/[address] [facility] [place] [address] [address] 04/08/[address] [facility] [place] [address] [address] 2024 Adi Sanabria Assessments Encounter Date Diagnosis [...] Patient will be restricted to homebound status. [facility] will be directed to assist the patient post operatively in their home startin02/24/2024 Patient will start outpatient physical therapy at [facility] on 03/09/2024 No history of DVT [...] Patient will be restricted to homebound status. [facility] will be directed to assist the patient post operatively in their home startin06/08/24 Patient will start outpatient physical therapy at [facility] on 06/23/24 No history of DVT [...] Details Provider Name:Faby Bonilla, 01/18/2025 10:00:00 AM, [address], [address], Insurance Providers Payer Name Payer Address Payer Phone Subscriber Number Group Number Insured Name Patient Relationship to Insured Coverage Start Date Coverage End Date Medicare of [place] [employer] [address] [address] [place] [address] [phone] [id number] Dagmar Flores Self - patient is the insured BCBS Federal [address] [place] [address] [id number] Dagmar Flores Self - patient is [...]
--- OUTSIDE RECORDS SUMMARY | 2024-10-26 13:27 | XMS_ITS | Encounter Summary ---
Author Organization [employer] ([place], [place], [place], [place]) Address [address] [place] [address] Care Team Providers Care Biomaterials Engineer Name Role Phone Charles Barrett MD Primary Care Provider [phone]- [phone] Reason for Referral * Mammography (Routine) - Closed Specialty Diagnoses / Procedures Referred By Patricia t Referred To Contact Diagnoses Visit for screening mammogram Procedures MM digital mammo screen with sudheer bilateral Charles Barrett MD [address] [facility] [address] [place] [address] Phone: tel: fax: Referral ID Status Reason Start Date Expiration Date Visits Re quested Visits Authorized [id number] Closed 11/02/2023 04/30/2024 1 1 Encounter Details Date Type Department Care Team (Late st Contact Info) Description 11/19/[address] [place] [address] Charles Barrett MD [address] [place] [address] [...] Date Jarrett rded Speak language other than Maldivian at home Not on file 03/27/2023 Want [...] Info) Description 11/03/2024 3:45 PM EDT Appointment [address] [address] documented as of this encounter [...] the next mammogram. At our facility, a lower elwha marker is positioned over a visible skin [...] cancer. COMPARISON STUDY: 2022 through 2014 from [facility] FINDINGS: Craniocaudal and mediolateral oblique images of [...] mammogram documented in this encounter Care Teams Biomaterials Engineer Relationship Specialty Start Date End Date Charles Barrett MD [address] [place] [facility] [address] [place] [address] PCP - General Family Medicine 11/19/22 documented as of this encounter
--- OUTSIDE RECORDS SUMMARY | 2024-10-26 13:27 | XMS_ITS | Encounter Summary ---
Author Organization [employer] ([place], [place], [place], [place]) Address [address] [place] [address] Care Team Providers Care Athletic Monitor Name Role Phone Charles Barrett MD Primary Care Provider +1- [phone] Encounter Details Date Type Department Care Team (Late st Contact Info) Description 11/10/2019 Transcribed Document [facility] [facility] [address] ProviderRaúl MD [address] [place] [address] Social History Tobacco Use Types Packs/Day [...] PERFORMED: Standard left heart catheterization. TECHNIQUE: A 5/6-Syrian sheath was placed in the right radial [...] factor modification and medical management are recommended. /[id number] Jarad Rodriguez MD SSL/AQ / SSL / MODL /[id number] CC: Charles Barrett Electronically signed by Francisco [facility] Conversion Consumer Affairs Specialist Cerner at 06/23/2022 11:18 AM CDT documented in this encounter Plan of Treatment Upcoming Encounters Date Type Department Care Team (Late st Contact Info) Description 11/03/2024 3:45 PM EDT Appointment [address] [place] [address] documented as of this encounter Visit Diagnoses Not on filedocumented in this encounter Care Teams Athletic Monitor Relationship Specialty Start Date End Date Charles Barrett MD [address] [facility] [address] [facility] [address] PCP - General Family Medicine 11/19/22 documented as of this encounter
--- OUTSIDE RECORDS SUMMARY | 2024-10-26 13:27 | XMS_ITS | Encounter Summary ---
Author Organization [employer] ([place], [place], [place], [place]) Address [address] [place] [address] Care Team Providers Care Glazier Supervisor Name Role Phone Charles Barrett MD Primary Care Provider +1- [phone] Encounter Details Date Type Department Care Team (Late st Contact Info) Description 11/10/2019 Transcribed Document [facility] [place] Family [place] [facility] [place] [address] ProviderRaúl MD [address] [place] [address] Social History Tobacco Use Types Packs/Day [...] including vitamins, herbs, eye drops, creams, and hlud-cbx-kznxjym medicines. ??? Any problems you or family [...] tells you to take them. ??? Taking hhzh-uia-ohgxmkm medicines, vitamins, herbs, and supplements. Exams and [...] 11/17/2012 Document Revised: 01/17/2019 Document Reviewed: 01/17/2019 Lancope Patient Education ? 2020 AeroScout. Radial Site Care This sheet gives you [...] these instructions at home: Medicines ??? Take oepl-nhn-vwepzri and prescription medicines only as told by your health care provider. Insertion site care ??? Follow instructions from your health care provider about how to take care of your insertion site. Make sure you: ? Wash your hands with soap and water before you change your bandage (dressing). If soap and water are not available, use hand smt technician. ? Change your dressing as told by [...] 03/28/2011 Document Revised: 03/31/2018 Document Reviewed: 03/31/2018 Lancope Patient Education ? 2020 Lancope Inc. Moderate Conscious Sedation, Adult, Care After [...] you are awake and alert. ??? Take towb-bey-qtpfzry and prescription medicines only as told by [...] Reviewed: 06/14/2016 Elsevier Patient Education ? 2019 AeroScout. Electronically signed by Francisco, [facility] Conversion Call Center Manager Cerner at 06/23/2022 11:33 AM CDT documented in this encounter Plan of Treatment Upcoming Encounters Date Type Department Care Team (Late st Contact Info) Description 11/03/2024 3:45 PM EDT Appointment [address] [place] [address] documented as of this encounter Visit Diagnoses Not on filedocumented in this encounter Care Teams Glazier Supervisor Relationship Specialty Start Date End Date Charles Barrett MD [address] [place] [address] PCP - General Family Medicine 11/19/22 documented as of this encounter
--- OUTSIDE RECORDS SUMMARY | 2024-10-26 13:27 | XMS_ITS | Encounter Summary ---
Author Organization [employer] ([place], [place], [place], [place]) Address [address] [place] [address] Care Team Providers Care Logging Rafter Laborer Name Role Phone Charles Barrett MD Primary Care Provider +1- [phone] Encounter Details Date Type Department Care Team (Late st Contact Info) Description 11/10/2019 Transcribed Document [facility] [place] [facility] [place] [address] ProviderRaúl MD [address] [place] [address] Social History Tobacco Use Types Packs/Day [...] Source : Stated Height Entry Format : [place] Height, Feet : 5 ft(Converted to: 152 cm, 60 Inch) Height, Inches : 0 Inch(Converted to: 0 ft 0 Inch, 0.00 cm) Clinical Height : 152.4 cm Weight Source : Standing scale Weight Entry Format : [place] Clinical Dosing Weight : 59.55 kg Weight, Pounds : 131 lb Body Surface Area (BSA) : 1.56 m2 Body Mass Index : 25.6 kg/m2 (HI) [place] Body Weight : 45 kg Monica Stubbs [...] FAY MIRANDA, RN) Home/Environment: Lives with Spouse, asxmay-ni-zps. Home equipment: Glucose monitoring, INR machine. Alcohol [...] Monica Stubbs RN - 11/10/2019 13:30 EDT [place] Suicide Severity Rating Scale (C-SSRS) CSSRS Past [...] : Living will, Medical durable power of immigration attorney (proxy) Medical Durable Power of Stone Rigger Name : Norberto Flores Copy Advance Directive [...] RN - 11/10/2019 13:30 EDT General Info Process Safety Engineer Needed : No Monica Stubbs RN - 11/10/2019 21:00 EDT Preferred Name : Leilani Arrived From : Home Mode of Arrival on Unit : Ambulatory Legal Guardian : Spouse Support Person/Patient Equalizer Operator : Yes Support Person/Pt Rep Name : Norberto (spouse) Support Person/Pt Rep Contact Information : [phone] Want Family/Rep/Phys Notified of Admit : No Emergency Contact #1 : Norberto Flores Emergency Contact #1 Emergency Contact #1 Relationship : Emergency Contact #2 : na Emergency Contact #2 Phone Number : na Emergency Contact #2 Relationship : na Primary Language : Gibraltarian Preferred Communication Mode : Verbal Communication Barrier [...] Scale Risk Level : 25-45 Medium Risk Bad Axe Fall Interventions : Adequate lighting, Assistive devices [...] 11/10/2019 13:30 EDT Electronically signed by Francisco [facility] Conversion Travel Service Consultant Cerner at 06/23/2022 11:10 AM CDT documented in this encounter Plan of Treatment Upcoming Encounters Date Type Department Care Team (Late st Contact Info) Description 11/03/2024 3:45 PM EDT Appointment [address] [place] [address] documented as of this encounter Visit Diagnoses Not on filedocumented in this encounter Care Teams Logging Rafter Laborer Relationship Specialty Start Date End Date Charles Barrett MD [address] [facility] [address] [facility] [address] PCP - General Family Medicine 11/19/22 documented as of this encounter
--- OUTSIDE RECORDS SUMMARY | 2024-10-26 13:27 | XMS_ITS | Encounter Summary ---
Author Organization [employer] ([place], [place], [place], [place]) Address [address] [place] [address] Care Team Providers Care Product Advisor Name Role Phone Rekha Barrett MD Primary Care Provider [phone]- [phone] Encounter Details Date Type Department Care Team (Late st Contact Info) Description 11/10/2019 Transcribed Document [facility] [place] [facility] [place] [address] ProviderRaúl MD [address] [place] [address] Social History Tobacco Use Types Packs/Day [...] Gonzalez MD - 11/10/2019 6:48 PM CDT [facility] [place] [address] IDA FLORES LISSA :1950 Visit Time:11/10/2019 [...] Comments Call for follow up appointment Where: [address] [place] [address] Medications What How Much When Instructions [...] including vitamins, herbs, eye drops, creams, and vkuf-zza-bzrqfim medicines. ??? Any problems you or family [...] tells you to take them. ??? Taking ixri-lxs-zpbsory medicines, vitamins, herbs, and supplements. Exams and [...] 11/17/2012 Document Revised: 01/17/2019 Document Reviewed: 01/17/2019 SpaBoom Patient Education ?? 2020 Anystream. Radial Site Care This sheet gives you [...] these instructions at home: Medicines ??? Take mwqc-ihw-saorvuv and prescription medicines only as told by your health care provider. Insertion site care ??? Follow instructions from your health care provider about how to take care of your insertion site. Make sure you: ? Wash your hands with soap and water before you change your bandage (dressing). If soap and water are not available, use hand canvas worker. ? Change your dressing as told by [...] 03/28/2011 Document Revised: 03/31/2018 Document Reviewed: 03/31/2018 SpaBoom Patient Education ?? 2020 SpaBoom Inc. Moderate Conscious Sedation, Adult, Care After [...] you are awake and alert. ??? Take nyni-fqr-vghsydb and prescription medicines only as told by [...] 12/14/2013 Document Revised: 02/05/2018 Document Reviewed: 06/14/2016 ElseAdform Patient Education ?? 2020 SpaBoom Inc. Emergency Awareness and Preventative Care STROKE [...] Assistance with quitting is available by contacting 9-418-HYKB-NOW. This is a free resource providing counseling, [...] was given the opportunity to ask questions. Patient/Rn Imaging Name: Patient/Rn Imaging Signature: Relationship to Patient: Clinician/Hospital Rn Imaging Signature: Date: documented in this encounter Plan of Treatment Upcoming Encounters Date Type Department Care Team (Late st Contact Info) Description 11/03/2024 3:45 PM EDT Appointment [address] [address] documented as of this encounter Visit Diagnoses Not on filedocumented in this encounter Care Teams Product Advisor Relationship Specialty Start Date End Date Rekha Barrett MD [address] [facility] [address] [place] [address] PCP - General Family Medicine 11/19/22 documented as of this encounter
--- NOTE | 2024-10-26 13:33 | CT_ITS ---
FINAL REPORT TECHNIQUE: Axial CT images were performed through the head. Coronal reformatted images were submitted. This study was performed with techniques to keep radiation doses as low as reasonably achievable (ALARA). Individualized dose reduction techniques using automated exposure control or adjustment of mA and/or kV according to the patient's size were employed. CLINICAL HISTORY: fall, head injury FINDINGS: There is mild atrophy with proportional ventriculomegaly. There is no evidence of hemorrhage. There is no mass or edema identified. There is no abnormal extra-axial fluid seen. The sinuses are well aerated. IMPRESSION: No acute intracranial process. Reviewed, Interpreted and Dictated by Richie Randall MD Transcribed by Dana Glass Authenticated and [facility]
--- NOTE | 2024-10-26 13:33 | CT_ITS ---
FINAL REPORT TECHNIQUE: Axial images were obtained of the cervical spine by computed tomography. Coronal and sagittal reconstruction process performed. This study was performed with techniques to keep radiation doses as low as reasonably achievable (ALARA). Individualized dose reduction techniques using automated exposure control or adjustment of mA and/or kV according to the patient''s size were employed. CLINICAL HISTORY: fall, injury FINDINGS: Cervical vertebrae show normal height. There is moderate disc space narrowing at C5-6 and C6-7. There is minimal spondylolisthesis of C4 on 5. There is endplate hypertrophy at C4-5, C5-6, and C6-7 with mild bilateral neuroforaminal narrowing. The facets are properly aligned. IMPRESSION: Multilevel degenerative disc disease without acute bony abnormality. Reviewed, Interpreted and Dictated by Richie Randall MD Transcribed by Dana Glass Authenticated and [facility]
--- NOTE | 2024-10-26 13:37 | XR_ITS ---
FINAL REPORT CLINICAL HISTORY: dyspnea, fall COMPARISON: 05/02/2022 FINDINGS: SINGLE VIEW CHEST The heart is normal in size. The mediastinum is unremarkable. Pacer is identified. The lungs are hyperinflated. Lucency in the upper lobes is consistent with centrilobular emphysema. There is no pneumothorax. IMPRESSION: Emphysema. Reviewed, Interpreted and Dictated by Richie Randall MD Transcribed by Dana Glass Authenticated and [facility]
[2024-10-26 13:38] VITALS: BP 130/72; PULSE 70; RESP 18; TEMP 36.8; O2SAT 97; BMI 26.4
--- NOTE | 2024-10-26 13:41 | HMH.EDGENADL ---
Discharge Plan Disposition Patient Disposition: Admitted Clinical Impressions Clinical Impression: Syncope, Minor head injury Discharge ED Provider: Aaron Rivas General Adult HPI General Chief complaint: Syncope Stated complaint: Poss CVA Time Seen by Provider: 10/26/24 13:20 History of Present Illness HPI narrative: Patient is a 74-year-old presenting today after presumed syncopal episode. States that she was walking out of her mobile home to go to the garden and felt fine and then subsequently woke up on the ground without any history of what happened. She had no chest pain shortness of breath lightheadedness or any other preceding symptoms. She denies having loss of urine continence or biting her tongue. EMS stated that when they got to her that she was slightly slowed cognitively and speaking slowly but otherwise nonfocal. Their Accu-Chek was normal from their historical exam. Patient denies any other changes to medications any other symptoms other than a very mild posterior headache which she believes is from hitting her head upon falling. She denies neck pain chest pain abdominal pain shortness of breath fevers chills or severe headache. Related Data Home Medications ?Medication ?Instructions ?Recorded ?Confirmed atorvastatin 40 mg tablet 40 mg PO HS Cholesterol 10/28/19 01/06/24 cholecalciferol (vitamin D3) 125 125 mcg PO DAILY Supplement 10/28/19 01/06/24 mcg (5,000 unit) capsule dronedarone 400 mg tablet 400 mg PO BID aFIB 10/28/19 01/06/24 gabapentin 300 mg capsule 900 mg PO HS pain 10/28/19 01/06/24 levetiracetam 500 mg tablet 500 mg PO BID seizure 10/28/19 01/06/24 montelukast 10 mg tablet 10 mg PO HS Allergy symptoms 10/28/19 01/06/24 raloxifene 60 mg tablet 60 mg PO HS unknown 10/28/19 01/06/24 ranolazine 500 mg tablet,extended 1,000 mg PO BID unknown 10/28/19 01/06/24 release,12 hr venlafaxine 37.5 mg tablet 37.5 mg PO DAILY Depression 10/28/19 01/06/24 midodrine 5 mg tablet 5 mg PO BID . 10/15/20 01/06/24 omeprazole 40 mg capsule,delayed 40 mg PO DAILY GERD 10/15/20 01/06/24 release cyanocobalamin (vitamin B-12) 1,000 mcg IM MONTHLY Supplement 10/16/20 01/06/24 1,000 mcg/mL injection solution apixaban 5 mg tablet (Eliquis) 5 mg PO BID HEART HEALTHY 08/06/21 01/06/24 Previous Rx's ?Medication ?Instructions ?Recorded hydrocodone 5 mg-acetaminophen 325 1 - 2 tab PO Q6HP PRN Moderate 08/12/21 mg tablet Pain #21 tabs Allergies Allergy/AdvReac Type Severity Reaction Status Date / Time codeine (CODEINE) Allergy Intermediate I-RASH Verified 01/06/24 09:57 hydromorphone (From DILAUDID) Allergy Unknown I-HIVES Verified 01/06/24 09:57 PFSH [facility] Disclaimer: The information contained in this section may have been updated after the patient was seen, as this information can be updated by other users. Social History Smoking Status: Never smoker alcohol intake: never substance use type: denies use current occupational status: retired Travel in the last 8 weeks?: None household members: spouse housing: house current occupational exposures/hazards: No caffeine: Yes Have you lived/traveled outside US in past 30 days?: No Contact w/someone who lives/traveled outside US past 30 days?: No Exposure to someone with infectious disease in past 14 days?: No Do you have a fever (greater than 100.4 F or 38 C)?: No Have you tested positive for COVID-19?: No Exposed to someone with COVID-19 in past 14 days?: No Do you have a sore throat?: No Do you have a cough?: No Do you have any weakness?: No Do you have any diarrhea?: No Are you experiencing any unusual bleeding?: No Do you have any muscle aches/pain?: No Do you have any abdominal pain?: No Are you experiencing loss of taste or smell?: No Other Medical History Have you received the Flu Vaccine for this season: Yes Have you received the Pneumonia Vaccine: Yes ROS Obtained: Yes All systems reviewed & no additional complaints except as documented Physical Exam General General appearance: alert Head Head exam: atraumatic and normocephalic Eye Eye exam: Present normal appearance Neck Neck exam: Absent tenderness Chest Chest inspection: Present normal inspection; Absent symmetric chest wall rise Respiratory Respiratory exam: Present normal lung sounds bilaterally; Absent respiratory distress Cardiovascular Cardiovascular exam: Present regular rate and normal rhythm Abdominal Exam Abdominal exam: Present soft; Absent distention Neurological Exam Neurological exam: Present alert, oriented X3, CN II-XII intact, normal gait and other (Nonfocal neurologic exam); Absent motor sensory deficit Medical Decision Making Medical Records Screening: Per USPSTF and CDC recommendations, given the prevalence of disease in our region, it is our hospital?s policy to screen for HIV and viral Hepatitis for all patients aged 18 and over and those with ongoing risk factors. Radhames Inquiry Pt receiving controlled substance: No Vital Signs: 10/26/24 13:38 Temperature 98.2 F Temperature Source Oral Pulse Rate [Right Radial] 70 Respiratory Rate 18 Blood Pressure [Right Arm] 130/72 Blood Pressure Mean [Right Arm] 91 Blood Pressure Source [Right Arm] Automatic Cuff Blood Pressure Position [Right Arm] Supine 02 Sat by Pulse Oximetry 97 Oxygen Delivery Method Room Air Lab Data Lab results reviewed: Yes I reviewed the patient's lab results. Lab Results 10/26/24 13:50: WBC 5.9, RBC 4.20, Hgb 11.0 L, Hct 35.6 L, MCV 84.8, MCH 26.2 L, MCHC 30.9 L, RDW 16.1, Plt Count 243, MPV 9.8, Neut % (Auto) 59.2, Lymph % (Auto) 29.3, [place] % (Auto) 9.3, Eos % (Auto) 1.2, Baso % (Auto) 0.7, Neut # (Auto) 3.5, Lymph # (Auto) 1.7, [place] # (Auto) 0.6, Eos # (Auto) 0.1, Baso # (Auto) 0.0, Sodium 137, Potassium 4.0, Chloride 105, Carbon Dioxide 27, Anion Gap 9.0, BUN 12, Creatinine 0.70, Estimated Creat Clear 48, Estimated GFR 81, Est GFR ( Amer) 98, Glucose 50 L, Calcium 8.6, Magnesium 2.0, Total Bilirubin 0.3, AST 30, ALT 15, Alkaline Phosphatase 101, Troponin I < 0.01, NT-Pro-B Natriuret Pep 249, Total Protein 6.2 L, Albumin 3.9, Globulin 2.3, Albumin/Globulin Ratio 1.7 10/26/24 13:50 10/26/24 13:50 Orders (Tests/Meds): ED MEDICATIONS Discontinued Medications Generic Name Dose Route Start Last Admin Trade Name Maxine PRN Reason Stop Dose Admin Dextrose 50 ml 10/26/24 13:56 10/26/24 14:11 Dextrose 50% 50ml Syringe (Crash Cart) IVP 10/26/24 13:57 50 ml ONCE ONE Administration Lactated Ringer's 500 mls @ 999 mls/hr 10/26/24 13:45 10/26/24 14:11 Lactated Ringer's 1000 Ml Bag IV 10/26/24 14:15 999 mls/hr .Q31M VANNESSA Administration Ondansetron HCl 4 mg 10/26/24 13:56 10/26/24 14:13 Ondansetron 4mg/2ml Vial IV 10/26/24 13:57 4 mg ONCE ONE Administration ORDERS Category Date Time Status CT cervical spine wo con Stat Cat Scan 10/26/24 13:[address] head/brain wo con Stat Cat Scan 10/26/24 13:33 Taken CXR --portable [XR chest portable] Stat Exams 10/26/24 13:37 Taken BNP [NT Pro Brain Natriuretic Pep.] Stat Lab 10/26/24 13:50 Completed CBC w/Auto Diff [Complete Blood Count Auto Diff] Stat Lab 10/26/24 13:50 Completed CMP [Comprehensive Metabolic Panel] Stat Lab 10/26/24 13:50 Completed Magnesium Stat Lab 10/26/24 13:50 Completed Trop I [Troponin I] Stat Lab 10/26/24 13:50 Completed Troponin I Q3H Lab 10/26/24 16:45 Ordered Troponin I Q3H Lab 10/26/24 19:45 Ordered CA echo doppler complete Stat Y 10/26/24 15:00 Ordered Medical Decision Narrative: 74-year-old with above history and physical. The EKG was performed which I personally interpreted which shows an electronic atrial and ventricular pacemaker negative Sgarbossa's cannot rule out ischemia. She has a [employer] device we will get this interrogated. Bleeding on the differential would be a pathologic/malignant arrhythmia. Other cardiovascular pathologies certainly in the differential as well. She does not have symptoms in my mind that are consistent with a subarachnoid hemorrhage as she denies any severe thunderclap type headache. She has a nonfocal neurologic exam will not get angiography imaging at the moment. Basic workup is pending IV fluids will be administered and will reassess. Of note patient did have a glucose around 50 but she is actually significantly improved from when she was in the EMS truck earlier at which point her glucose was well over 100 I do not believe that hypoglycemia is the cause of this episode today. Reassessment patient CT scan performed as a personal interpreted showed no acute abnormalities. Labs otherwise unremarkable. We had her pacemaker interrogated which showed that she was atrial paced 73% of the time ventricular paced 99% of the time AT AF burden was 5.2% 0 high ventricular rates there were 413 magnetic responses. After discussing the case with Dr. Rodriguez we will put the patient in the hospital get a formal echo for further structural evaluation. I also spoke with Fredo the career representative for the [employer] device and he will follow-up with the inpatient physicians as well I believe. 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 Critical Care Critical Care Time Critical Care Time: Yes Attestation: On 10/26/24, the high probability of a clinically significant, sudden or life threatening deterioration of the following system(s) required my full and direct attention, intervention and personal management. The time I documented below is in addition to time spent performing reported procedures but includes the following listed in this critical care notation. Total Time Total Critical Care Time: 35
[2024-10-26 14:10] LABS: Hematocrit 35.6 % (37.0-47.0); Hemoglobin 11.0 g/dL (12.2-16.2); Immature Granulocytes % 0.3 %; Mean Corpuscular HGB Conc 30.9 g/dL (31.8-35.4); Mean Corpuscular Hemoglobin 26.2 pg (27.0-31.2); Mean Corpuscular Volume 84.8 fl (81-99); Nucleated Red Blood Cells % 0 %; Platelet Count 243 K/mm3 (142-424); Red Blood Count 4.20 M/mm3 (4.20-5.40); Red Cell Distribution Width-SD 49.0 fL; White Blood Count 5.9 K/mm3 (4.8-10.8)
[2024-10-26] MEDS: DEXTROSE 50% 50ML SYRINGE (CRASH CART) 50 ML IVP (14:11)
[2024-10-26] MEDS: LACTATED RINGERS 1000ML 500 ML 999 ML IV (14:11)
[2024-10-26 14:13] LABS: Alanine Aminotransferase 15 U/L (12-78); Albumin Level 3.9 g/dl (3.5-5.0); Albumin/Globulin Ratio 1.7 (1.1-1.8); Alkaline Phosphatase 101 U/L (38-126); Anion Gap 9.0 mEq/L (5-15); Aspartate Amino Transferase 30 U/L (14-36); Bilirubin,Total 0.3 mg/dl (0.2-1.3); Blood Urea Nitrogen 12 mg/dl (7-17); Calcium 8.6 mg/dl (8.4-10.2); Carbon Dioxide 27 mmol/L (22.0-30.0); Chloride 105 mmol/L (98-107); Creatinine Clearance Estimated 48 mL/min (50-200); Creatinine,Serum 0.70 mg/dl (0.52-1.04); Estimated Glomerular Filt Rate 81 ml/min (>60); GFR (African American) 98 ML/MIN (>60); Globulin 2.3 g/dL (1.3-3.2); Magnesium 2.0 mg/dl (1.6-2.3); Potassium 4.0 mmoL/L (3.5-5.1); Sodium 137 mmol/L (136-145); Total Protein,Serum 6.2 g/dl (6.3-8.2)
[2024-10-26] MEDS: ONDANSETRON 4MG/2ML VIAL 4 MG IV (14:13)
[2024-10-26 14:19] LABS: Glucose 50 mg/dl (74-100)
--- NOTE | 2024-10-26 14:21 | PC.NURSE ---
1315- patient arrived VIA EMS for syncope 1317- first glucose check was 51 in right hand 1319- second glucose check in left hand was 54 1325- first attempt made for an IV by Scott Franco RN 1327- second IV attemp made by Roge Waller, attempt failed. 1329- third IV attempt failed by Salma Murcia RN 1330- EKG done, attempt being made by Faby BEAULIEU for an US IV. 1333- first US IV attempt failed, 1350- successful attempt made for US Iv, inserted by Faby BEAULIEU 1355- d50 IVP given
[2024-10-26 14:24] LABS: NT Pro Brain Natriuretic Pep. 249 pg/mL (0-450)
[2024-10-26 14:29] LABS: Troponin I < 0.01 ng/ml (0.00-0.034)
--- NOTE | 2024-10-26 14:31 | PC.NURSE ---
1430- pacemaker interrogated
--- NOTE | 2024-10-26 14:36 | PC.NURSE ---
pacemaker interrogation report received
--- NOTE | 2024-10-26 14:58 | PC.NURSE ---
Dr. Rivas speaking with Dr. Rodriguez
--- NOTE | 2024-10-26 15:00 | CA_ITS ---
APPROVED REPORT EXAM: Comprehensive 2D, Doppler, and color-flow Echocardiogram Licensed And Certified Midwife: Lyric August, RCS, RVS Ht: 5 ft 1 in Wt: 140lbs BSA: 1.62 BP: 106/69 mmHg Indications: Syncope, Old IA, H/o Afib, TIA 2D Dimensions Aortic Root 3.00 cm LA Volume 39.40 mL Left Atrium 2.98 cm LA Volume Index 24.30 mL/m2 (M/F) 16-34 RVID Base (AP4) 2.52 cm (M/F) 2.5-4.1 EF AP4 62.20 % LVOT 1.87 cm (M/F) 1.5-2.5 GL Strain -17.2 % M-Mode Dimensions RVDd 2.64 cm (0.9-2.6) LVDd 5.32 cm (3.5-5.7) Ao Diam 3.46 cm (2.0-3.7) LVDs 3.25 cm (3.5-5.7) IVSd 0.90 cm (0.6-1.1) PWd 0.90 cm (0.6-1.1) EF (Teich) 68.90% EPSs 0.77 cm FS 38.90% EDV (Teich) 136.50 mL TAPSE 2.35 (<1.7) ESV (Teich) 42.50 mL LV Diastology E Decel Time 188 (160-240 msec) E/A Ratio 0.59 MED E' 6.2 (>= 7 cm/sec) MED A' 14.20 cm/s E'/MED E' Ratio 10.55 (<= 14) LAT E' 8.7 (>= 10 cm/sec) LAT A' 12.40 cm/s E/LAT E' Ratio 7.52 (<= 14) Aortic Valve AoV Peak Alexander. 138.0 (50-130 cm/s) AI PHT 657.00 ms AO Mean GR. 3.80 (<5 mmHg) AO VTI 29.5 (18-25 cm) Mitral Valve MV E Max Alexander. 65.0 (40-130 cm/s) MV A Velocity 112.0 (40-130 cm/s) E/A Ratio 0.59 MV Decel. Time 188 (160-240 ms) Tricuspid Valve TR P. Velocity 248.00 cm/s RAP Estimate 10.00 mmHg RVSP 34.60 mmHg Left Ventricle The left ventricle is normal size. Left ventricular systolic function is normal. The left ventricular ejection fraction is within the normal range. There is normal left ventricular wall thickness. Therei is moderate hypokinesis of the LV apical wall. The septum is asynchronous. The left ventricular diastolic function is indeterminate. LVEF is 55% Right Ventricle The right ventricle is moderately dilated. The right ventricular systolic function is normal. Atria Left atrium is mildly dilated. Right atrium is mildly dilated. There is no color Doppler evidence of interatrial shunt. Aortic Valve The aortic valve is mildly thickened. There is no hemodynamically significant aortic valvular stenosis. Moderate aortic regurgitation is present. Mitral Valve The mitral valve is mildly thickened. No evidence of mitral valve stenosis. Mild mitral regurgitation is present. Tricuspid Valve The tricuspid valve leaflets are thin and pliable. Mild tricuspid regurgitation. RVSP is 20-25 mmHg. Pulmonic Valve The pulmonary valve is grossly normal in structure. Trace pulmonic valve regurgitation is present. Great Vessels The aortic root is normal in size. The ascending aorta is not well visualized. IVC is normal in size and collapses >50% with inspiration. Pericardium There is no pericardial effusion. Other Information Study Quality: Fair Conclusion Normal LV systolic function (LVEF 55%). Moderate hypokinesis of the LV apical wall. The septum is asynchronous. Moderate RV dilation with normal RV function. Mild biatrial dilation. Moderate AI. Mild MR, mild TR. Electronically signed by : Natalia Burnham MD 10/26/2024 23:47:31
--- NOTE | 2024-10-26 15:01 | PC.NURSE ---
Deonte EMTP called and notified of the need for a bed to admit.
--- NOTE | 2024-10-26 15:06 | PC.NURSE ---
MD at bedside discussing admission with patient.
--- NOTE | 2024-10-26 15:08 | PC.NURSE ---
Fredo Garcia called and is speaking with Dr Rivas about the pacemaker on this patient.
--- NOTE | 2024-10-26 15:12 | P.HP_ITS ---
<Statement entered by Lb Vizcaino MD - 10/26/24 17:44> Rounded on patient after nurse practitioner. Personally examined and interviewed patient. Agree with exam findings and care plan as documented. History of Present Illness *Admission Date: 10/26/24 *Reason for visit:: Syncope, pacemaker induced cardiomyopathy *History of present illness: Ms. Leilani Flores is a 74-year-old female who presented to the emergency department today via ambulance after a syncopal episode. She does have a primary medical history of a pacemaker, A-fib, GERD, TIA, seizures, hyperlipidemia, lumbar spondylosis, degenerative disc disease, chronic chest pain, asthma, depression, gastric bypass, chronic pain. She reports that she was walking out of her mobile home to go to the garden and felt completely fine, the next thing she knew she was lying on the ground after what appeared to be a fall. She reported pain in the back of her head. She denies chest pain, shortness of breath, lightheadedness, dizziness preceding the fall or afterwards. Per her she was slow to respond and her speech was garbled, he was worried that she may be having a another stroke so he called EMS. She was brought to the ED where assessment and workup revealed that her pacemaker showed she was atrially paced 73% at the time and ventricularly paced 99% of the time. Patient does have history of multiple pacemaker/GEN change placements in the past; last of which was November 2023. She has had previous placements at [facility] and currently sees a dialer at the [facility] as well. Incidentally they also found her glucose to be 50 which quickly corrected after dextrose was given. CT scan performed showed no abnormalities. Discussion was had with Dr. 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 Dr. Rivas consulted hospital medicine for admission and further cardiac workup, I agreed to admit the patient. plan of care as follows: [facility] Disclaimer: The information contained in this section may have been updated after the patient was seen, as this information can be updated by other users. Social History Smoking Status: Never smoker alcohol intake: never substance use type: denies use current occupational status: retired Travel in the last 8 weeks?: None household members: spouse housing: house current occupational exposures/hazards: No caffeine: Yes Have you lived/traveled outside US in past 30 days?: No Contact w/someone who lives/traveled outside US past 30 days?: No Exposure to someone with infectious disease in past 14 days?: No Do you have a fever (greater than 100.4 F or 38 C)?: No Have you tested positive for COVID-19?: No Exposed to someone with COVID-19 in past 14 days?: No Do you have a sore throat?: No Do you have a cough?: No Do you have any weakness?: No Do you have any diarrhea?: No Are you experiencing any unusual bleeding?: No Do you have any muscle aches/pain?: No Do you have any abdominal pain?: No Are you experiencing loss of taste or smell?: No Other Medical History Have you received the Flu Vaccine for this season: Yes Have you received the Pneumonia Vaccine: Yes Meds Home Medications and Allergies Home Medications ?Medication ?Instructions ?Recorded ?Confirmed ?Type atorvastatin 40 mg tablet 40 mg PO HS Cholesterol 10/0810/26/24 History cholecalciferol (vitamin D3) 125 125 mcg PO DAILY Supp lement 10/28/19 10/26/24 History mcg (5,000 unit) capsule gabapentin 300 mg capsule 900 mg PO HS pain 10/28/19 0 10/26/24 History levetiracetam 500 mg tablet 500 mg PO BID seizure 10/0810/26/24 History montelukast 10 mg tablet 10 mg PO HS Allergy symptoms 10/28/19 10/26/24 History raloxifene 60 mg tablet 60 mg PO HS unknown 10/28/19 10/26/24 History ranolazine 500 mg tablet,extended 1,000 mg PO BID unkn own 10/28/19 10/26/24 History release,12 hr venlafaxine 37.5 mg tablet 37.5 mg PO DAILY Depression 10/28/19 10/26/24 History midodrine 5 mg tablet 5 mg PO BID . 10/15/2010/26 History omeprazole 40 mg capsule,delayed 40 mg PO DAILY GERD 0 10/15/20 10/26/24 History release cyanocobalamin (vitamin B-12) 1,000 mcg IM MONTHLY Sup plement 10/16/20 10/26/24 History 1,000 mcg/mL injection solution apixaban 5 mg tablet (Eliquis) 5 mg PO BID HEART HEALT HY 08/06/21 10/26/24 History New Prescriptions to Start Prescriptions: Allergies Allergy/AdvReac Type Severity Reaction Status Date / Time codeine (CODEINE) Allergy Intermediate I-RASH Verified 01/06/24 09:57 hydromorphone (From DILAUDID) Allergy Unknown I-HIVES Verified 01/06/24 09:57 Exam Data for Last 24 hours Vital signs and Labs for Last 24 Hours: Temp Pulse Resp BP Pulse Ox O2 Del Method 98.2 F 70 18 130/72 97 Room Air 10/26/24 13:38 10/26/24 13:38 10/26/24 13:38 10/26/24 13:38 10/26/24 13:38 10/26/24 13:38 Laboratory Results - last 24 hr 10/26/24 13:50: WBC 5.9, RBC 4.20, Hgb 11.0 L, Hct 35.6 L, MCV 84.8, MCH 26.2 L, MCHC 30.9 L, RDW 16.1, Plt Count 243, MPV 9.8, Neut % (Auto) 59.2, Lymph % (Auto) 29.3, [place] % (Auto) 9.3, Eos % (Auto) 1.2, Baso % (Auto) 0.7, Neut # (Auto) 3.5, Lymph # (Auto) 1.7, [place] # (Auto) 0.6, Eos # (Auto) 0.1, Baso # (Auto) 0.0, Sodium 137, Potassium 4.0, Chloride 105, Carbon Dioxide 27, Anion Gap 9.0, BUN 12, Creatinine 0.70, Estimated Creat Clear 48, Estimated GFR 81, Est GFR ( Amer) 98, Glucose 50 L, Calcium 8.6, Magnesium 2.0, Total Bilirubin 0.3, AST 30, ALT 15, Alkaline Phosphatase 101, Troponin I < 0.01, NT-Pro-B Natriuret Pep 249, Total Protein 6.2 L, Albumin 3.9, Globulin 2.3, Albumin/Globulin Ratio 1.7 I & O for Last 24 hours: Intake & Output 10/23/24 10/24/24 10/25/24 10/26/24 23:59 23:59 23:59 23:59 Weight 63.503 kg *Routine HEENT Exam Head: Present normocephalic Eye: Present EOMI ENT: Present mucous membranes moist *Routine Respiratory Exam Respiratory: Present CTA bilaterally, able to speak in complete sentences and symmetric chest movement; Absent crackles *Routine Cardiovascular Exam Cardiovascular: Present RRR; Absent murmur *Routine Abdominal Exam Abdominal: Present soft and normoactive bowel sounds; Absent tenderness or distended *Routine Rectal Exam Rectal:: deferred *Routine Genitalia Exam Genitalia:: deferred Assessment and Plan *Assessment and plan (1) Status cardiac pacemaker: Status: Chronic Category: Surgical Code(s): Z95.0 - Presence of cardiac pacemaker (2) Syncope and collapse: Status: Acute Category: Medical Code(s): R55 - Syncope and collapse (3) Paroxysmal A-fib: Status: Acute Category: Medical Code(s): I48.0 - Paroxysmal atrial fibrillation Plan Ms. Leilani Flores is a 74-year-old female who presented to the emergency department today via ambulance after a syncopal episode. She does have a primary medical history of a pacemaker, A-fib, GERD, TIA, seizures, hyperlipidemia, lumbar spondylosis, degenerative disc disease, chronic chest pain, asthma, depression, gastric bypass, chronic pain. She reports that she was walking out of her mobile home to go to the garden and felt completely fine, the next thing she knew she was lying on the ground after what appeared to be a fall. She reported pain in the back of her head. She denies chest pain, shortness of breath, lightheadedness, dizziness preceding the fall or afterwards. Per her she was slow to respond and her speech was garbled, he was worried that she may be having a another stroke so he called EMS. She was brought to the ED where assessment and workup revealed that her pacemaker showed she was atrially paced 73% at the time and ventricularly paced 99% of the time. Patient does have history of multiple pacemaker/GEN change placements in the past; last of which was November 2023. She has had previous placements at [facility] and currently sees a dialer at the [facility] as well. Incidentally they also found her glucose to be 50 which quickly corrected after dextrose was given. CT scan performed showed no abnormalities. Discussion was had with Dr. 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 Dr. Rivas consulted hospital medicine for admission and further cardiac workup, I agreed to admit the patient. plan of care as follows: #Status post pacemaker #Syncope and collapse #Paroxysmal A-fib ?Assessment of the patient reveals that she has had to have multiple GEN changes in the past due to being paced regularly. She does have a history of cardiac ablation in 2002, but currently still has paroxysmal A-fib. Patient was admitted to the hospital and will be made n.p.o. for possible generator change. Cardiology consulted for further recommendations. Will hold Eliquis 5 mg twice daily. ?No other electrolyte abnormalities noted on CMP, mild anemia noted, hemoglobin 11.0 this appears to be patient baseline. ?CMP, CBC, magnesium ordered for the a.m. #History of seizures: Continue Keppra 500 mg twice daily #GERD: Continue omeprazole 40 mg daily #Depression: Continue venlafaxine 37.5 mg daily #Chronic chest discomfort: Continue ranolazine 1000 mg twice daily #Hypotension: Continue midodrine 5 mg twice daily #Hyperlipidemia: Continue atorvastatin 40 mg at bedtime. Full code Regular diet Ambulate as tolerated VTE?SCDs
--- NOTE | 2024-10-26 15:35 | PC.NURSE ---
report called to Areli BEAULIEU on med surg
--- NOTE | 2024-10-26 15:50 | PC.NURSE ---
patient to floor
[2024-10-26 15:51] VITALS: BP 140/72; PULSE 70; RESP 14; TEMP 36.7; O2SAT 98
[2024-10-26 15:52] VITALS: BP 127/73; PULSE 70; RESP 17; TEMP 36.6; O2SAT 99; BMI 26.9
[2024-10-26 17:34] LABS: Thyroid Stimulating Hormone 1.21 uIU/mL (0.465-4.68)
[2024-10-26 18:11] LABS: Hemoglobin A1C 6.0 % (4.0-6.0)
[2024-10-26 18:32] LABS: Troponin I < 0.01 ng/ml (0.00-0.034)
[2024-10-26 18:50] LABS: POC Glucose,Bedside 128 (70-110)
[2024-10-26 20:00] VITALS: BP 114/62; PULSE 70; RESP 16; TEMP 36.6; O2SAT 96
[2024-10-26] MEDS: MONTELUKAST SODIUM 10MG TAB 10 MG PO (21:20)
[2024-10-26] MEDS: RANOLAZINE 500MG ER TABLET 1000 MG PO (21:20)
[2024-10-26] MEDS: GABAPENTIN 300MG CAPSULE 900 MG PO (21:21)
[2024-10-26] MEDS: MELATONIN 5MG TABLET 10 MG PO (21:21)
[2024-10-26] MEDS: PANTOPRAZOLE 40MG TABLET 40 MG PO (21:21)
[2024-10-26] MEDS: PAT OWN MED ***ATORVASTATIN 40MG 40 MG PO (21:22)
[2024-10-26 21:48] LABS: Troponin I < 0.01 ng/ml (0.00-0.034)
[2024-10-27] VITALS: BP 105/55; PULSE 69; PULSE 70; RESP 16; TEMP 36.7; O2SAT 95
--- NOTE | 2024-10-27 02:48 | PC.NURSE ---
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 called 911 Pt was brought by ambulance to [facility]. A1C is 6.0. pt is npo. for possible Pacemaker change. Call light with in reach. ROBERT ESPINAL RN
[2024-10-27 04:00] VITALS: BP 100/50; PULSE 70; PULSE 72; RESP 16; TEMP 36.6; O2SAT 94; BMI 27.3
[2024-10-27 05:45] LABS: POC Glucose,Bedside 87 (70-110)
[2024-10-27 06:34] LABS: Hematocrit 35.2 % (37.0-47.0); Hemoglobin 10.3 g/dL (12.2-16.2); Immature Granulocytes % 0.2 %; Mean Corpuscular HGB Conc 29.3 g/dL (31.8-35.4); Mean Corpuscular Hemoglobin 26.1 pg (27.0-31.2); Mean Corpuscular Volume 89.3 fl (81-99); Nucleated Red Blood Cells % 0 %; Platelet Count 205 K/mm3 (142-424); Red Blood Count 3.94 M/mm3 (4.20-5.40); Red Cell Distribution Width-SD 54.3 fL; White Blood Count 5.2 K/mm3 (4.8-10.8)
[2024-10-27 06:40] LABS: INR 0.98 (0.9-1.1); Prothrombin Time 10.9 seconds (10.1-12.5)
[2024-10-27 08:00] VITALS: BP 100/55; PULSE 70; RESP 16; TEMP 36.6; O2SAT 98
--- NOTE | 2024-10-27 08:18 | HMH.PHAINT1 ---
Pharmacy Intervention Comments: MEDICATION RECONCILIATION COMPLETED ON PATIENT USING EXTERNAL FILL HISTORY FROM PHARMACY. -TIFFANY FIERRO, LIZETHD
--- NOTE | 2024-10-27 09:27 | HMH.OTEV ---
OT Inpatient Evaluation Rehab OT IP Evaluation Start: 10/26/24 15:17 Freq: ONCE Status: Active Protocol: Document 10/27/24 09:24 MARINA (Rec: 10/27/24 09:27 [facility] [id number]) Rehab OT IP Assessment Subjective History Pt oriented x 3 on arrival. Pt agreeable to engage in therapy evaluation; pt's present and supportive . Pt admitted on 10/26/24 due to syncope espisode. History and physical: Ms. Leilani Flores is a 74-year-old female who presented to the emergency department today via ambulance after a syncopal episode. She does have a primary medical history of a pacemaker, A-fib, GERD, TIA, seizures, hyperlipidemia, lumbar spondylosis, degenerative disc disease, chronic chest pain, asthma, depression, gastric bypass, chronic pain. She reports that she was walking out of her mobile home to go to the garden and felt completely fine, the next thing she knew she was lying on the ground after what appeared to be a fall. She reported pain in the back of her head. She denies chest pain, shortness of breath, lightheadedness, dizziness preceding the fall or afterwards. Per her she was slow to respond and her speech was garbled, he was worried that she may be having a another stroke so he called EMS. She was brought to the ED where assessment and workup revealed that her pacemaker showed she was atrially paced 73% at the time and ventricularly paced 99% of the time. Patient does have history of multiple pacemaker/GEN change placements in the past; last of which was November 2023. She has had previous placements at [facility] and currently sees a psychiatric nurse practitioner at the [facility] as well. Incidentally they also found her glucose to be 50 which quickly corrected after dextrose was given. CT scan performed showed no abnormalities. Discussion was had with Dr. 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 Dr. Rivas consulted hospital medicine for admission and further cardiac workup, I agreed to admit the patient. plan of care as follows: Subjective I can get around fine. Pt reports prior to being in the hospital she lived at home with her . Pt claims normally she is independent with all ADLs and IADLs. She uses cane during functional transfers. Pt still drives. Objective Patient Orientation Person,Place,Birthday Right Upper WFL Extremity Gross ROM Left Upper Extremity WFL Gross ROM Bed Mobility bed mobility-scooting,bed mobility - supine/sit Assist Level Supervision/Stand by Transfer Training Sit/Stand Transfer Assist Level Supervision/Stand by Chair Transfer Supervision/Stand by Ability Chair Transfer Sit to/from Ambulatory Technique Lower Body Dressing Independent Ability Overall Commode/ Independent Toilet Transfer Ability Commode/Toilet Sit to/from Ambulatory Transfer Technique Rehab OT IP prob,goals,plan Problems Date of Evaluation: 10/27/24 Rehab Potential Rehab Potential Innapropriate for Skilled Therapy Discharge Plan OT Discharge Plan Pt appears to be at baseline with functional transfers and ADL independence. Pt can return home with once she is medically stable per physician. Eval Complexity Eval Charge Codes 92090 - Moderate Complexity PHYSICIAN CERTIFICATION: I certify the specified therapy services for Dagmar Flores are required, authorized, and reviewed every 30 days.
[2024-10-27 09:39] LABS: Alanine Aminotransferase 14 U/L (12-78); Albumin Level 3.6 g/dl (3.5-5.0); Albumin/Globulin Ratio 1.5 (1.1-1.8); Alkaline Phosphatase 82 U/L (38-126); Anion Gap 9.6 mEq/L (5-15); Aspartate Amino Transferase 32 U/L (14-36); Bilirubin,Total 0.5 mg/dl (0.2-1.3); Blood Urea Nitrogen 8 mg/dl (7-17); Calcium 8.3 mg/dl (8.4-10.2); Carbon Dioxide 25 mmol/L (22.0-30.0); Chloride 110 mmol/L (98-107); Cholesterol 154 mg/dl (140-200); Creatinine Clearance Estimated 50 mL/min (50-200); Creatinine,Serum 0.60 mg/dl (0.52-1.04); Estimated Glomerular Filt Rate 97 ml/min (>60); GFR (African American) 118 ML/MIN (>60); Globulin 2.4 g/dL (1.3-3.2); Glucose 86 mg/dl (74-100); HDL Cholesterol 84 mg/dl (40-60); Magnesium 1.9 mg/dl (1.6-2.3); Potassium 4.6 mmoL/L (3.5-5.1); Sodium 140 mmol/L (136-145); Total Protein,Serum 6.0 g/dl (6.3-8.2); Triglycerides 110 mg/dl (30-150)
--- NOTE | 2024-10-27 09:43 | HMH.PTEV ---
Physical Therapy Evaluation Rehab PT IP Evaluation Start: 10/26/24 15:17 Freq: ONCE Status: Active Protocol: Document 10/27/24 09:40 YSABEL (Rec: 10/27/24 09:43 YSABEL [id number]) Subjective/History History History Per H&P: Ms. Leilani Flores is a 74-year-old female who presented to the emergency department today via ambulance after a syncopal episode. She does have a primary medical history of a pacemaker, A-fib, GERD, TIA, seizures, hyperlipidemia, lumbar spondylosis, degenerative disc disease, chronic chest pain, asthma, depression, gastric bypass, chronic pain. She reports that she was walking out of her mobile home to go to the garden and felt completely fine, the next thing she knew she was lying on the ground after what appeared to be a fall. She reported pain in the back of her head. She denies chest pain, shortness of breath, lightheadedness, dizziness preceding the fall or afterwards. Per her she was slow to respond and her speech was garbled, he was worried that she may be having a another stroke so he called EMS. She was brought to the ED where assessment and workup revealed that her pacemaker showed she was atrially paced 73% at the time and ventricularly paced 99% of the time. Patient does have history of multiple pacemaker/GEN change placements in the past; last of which was November 2023. She has had previous placements at [facility] and currently sees a operations and intelligence assistant at the [facility] as well. Incidentally they also found her glucose to be 50 which quickly corrected after dextrose was given. CT scan performed showed no abnormalities. Discussion was had with Dr. 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 Dr. Rivas consulted hospital medicine for admission and further cardiac workup, I agreed to admit the patient. plan of care as follows: Subjective Subjective Pt reports prior to being in the hospital she lived at home with her . Pt claims normally she is independent with all functional mobility using a SPC. Pt still drives. New diagnosis of No cancer in past 12 months? [facility] How much help from another person do you currently need... Turning from your None back to your side while in a flat bed without using bedrails? Moving from lying on None back to sitting on the side of a flat bed without using bedrails? Moving to and from a None bed to a chair ( including a wheelchair)? Standing up from a None chair using your arms? (e.g., wheelchair, bedside chair) Walking in hospital None room? Climbing 3-5 steps A little with a railing? Mobility Score 23 Mobility Level [facility] Mobility 7 Walk 25 feet or more Mobility Calculator Rehab PT IP Eval Objective Appearance Patient Behavior Appropriate,Cooperative Patient Orientation Person,Place Difficulty following none instructions Speech Pattern Clear Ambulation Patient Able to Yes Ambulate Ambulation Observation IP General Gait Wide Based Gait Pattern Observation Ambulation Distance 50 (feet) Ambulation Assistive None Device Ambulation Ability Supervision/Stand by Balance Ability to Arise Able, uses arms to help Sitting Balance Steady, safe Standing Balance Steady, wide stance Dynamic Sitting Good Balance Ability Dynamic Standing Good Balance Ability Transfers Bed Transfer Ability Independent Sit to Stand Bed Independent Transfer Ability Rehab PT IP prob,goals,plan Problems Date of Evaluation: 10/27/24 Rehab Potential Rehab Potential Innapropriate for Skilled Therapy Discharge Plan PT Discharge Plan Pt most appropriate to d/c home when deemed medically necessary d/t current level of mobility, home set-up, and family support. Pt not appropriate for skilled acute care PT at this time d/t pt?s mobility being at baseline/IND. Eval Complexity Eval Charge Codes 51157 - Low Complexity PHYSICIAN CERTIFICATION: I certify the specified therapy services for Dagmar Flores are required, authorized, and reviewed every 30 days.
[2024-10-27] MEDS: VENLAFAXINE 37.5 MG PO (09:57)
[2024-10-27] MEDS: RANOLAZINE 500 MG 1000 MG PO (09:58)
[2024-10-27] MEDS: MIDODRINE HCL 5 MG PO (09:59)
[2024-10-27] MEDS: LEVETIRACETAM 500 MG PO (10:00)
[2024-10-27] MEDS: CHOLECALCIFEROL 1,000 UNITS (25MCG) TABLET 125 MCG PO (10:06)
--- NOTE | 2024-10-27 11:11 | EXP.CARD.CON ---
History of Present Illness History of Present Illness Consult date: 10/27/24 Requesting physician: Lb Vizcaino Chief complaint: syncope History of present illness: This is a 74-year-old white female who presented to the emergency department via ambulance after syncopal episode. The patient does have a past medical history of atrial fibrillation, pacemaker placement, coronary artery disease, hyperlipidemia and gastric bypass. The patient states that she was walking out of her mobile home yesterday to go to her garden and she was having no symptoms at that time. She states the next thing she knows she woke up on the ground after what appeared to be a fall. She states that she believes she fell backward just from the positioning of her body. When she woke up ants were crawling on her. She states that she did have some pain in the back of her head from the fall. She denies any chest pain, pressure, shortness of breath or edema before or after the fall. She denies any fever, chills, nausea, vomiting or diarrhea before or after the fall. The patient's does report that she does get low blood sugars at times which have caused her to pass out in the past. He states that he will notice the symptoms typically before she does that her blood sugar starting to get low. However, the patient reports that she had no symptoms at all prior to the syncopal episode. Her pacemaker was interrogated in the emergency department which showed she was a pacing 73% of the time and V pacing 99% of the time. There were no high V rates noted and she has atrial fibrillation 5% of the time. There is far field oversensing/signal causing inappropriate mode switches. She is currently on anticoagulation. She ruled out for an CT. [facility] Disclaimer: The information contained in this section may have been updated after the patient was seen, as this information can be updated by other users. Medical History (Updated 10/27/24 @ 11:16 by Shobha West APRN) Abnormal echocardiogram CAD in [place] artery Social History Smoking Status: Never smoker alcohol intake: never substance use type: denies use current occupational status: retired Travel in the last 8 weeks?: None household members: spouse housing: house current occupational exposures/hazards: No caffeine: Yes Have you lived/traveled outside [place] in past 30 days?: No Contact w/someone who lives/traveled outside US past 30 days?: No Exposure to someone with infectious disease in past 14 days?: No Do you have a fever (greater than 100.4 F or 38 C)?: No Have you tested positive for COVID-19?: No Exposed to someone with COVID-19 in past 14 days?: No Do you have a sore throat?: No Do you have a cough?: No Do you have any weakness?: No Do you have any diarrhea?: No Are you experiencing any unusual bleeding?: No Do you have any muscle aches/pain?: No Do you have any abdominal pain?: No Are you experiencing loss of taste or smell?: No Review of Systems Review of Systems Review of systems:: pertinent systems reviewed and negative unless documented below Constitutional Constitutional: Reports system reviewed and no additional complaints, except as documented Eyes Eyes: Reports system reviewed and no additional complaints, except as documented ENT Ears, Nose, Mouth, and Throat: Reports system reviewed and no additional complaints, except as documented *Cardiovascular Cardiovascular: Reports system reviewed and no additional complaints, except as documented and Reports syncope *Respiratory Respiratory: Reports system reviewed and no additional complaints, except as documented *Gastrointestinal Gastrointestinal: Reports system reviewed and no additional complaints, except as documented *Genitourinary Genitourinary: Reports system reviewed and no additional complaints, except as documented *Musculoskeletal Musculoskeletal: Reports system reviewed and no additional complaints, except as documented Integumentary/Breasts Skin/Breast: Reports system reviewed and no additional complaints, except as documented *Neurologic Neurologic: Reports system reviewed and no additional complaints, except as documented and Reports syncope Psychiatric Psychiatric: Reports system reviewed and no additional complaints, except as documented Endocrine Endocrine: Reports system reviewed and no additional complaints, except as documented Hematologic/Lymphatic Hematologic/Lymphatic: Reports system reviewed and no additional complaints, except as documented Allergic/Immunologic Allergic/Immunologic: Reports system reviewed and no additional complaints, except as documented Exam Data for Last 24 hours Vital signs and Labs for Last 24 Hours: Temp Pulse Resp BP Pulse Ox O2 Del Method O2 Flow Rate 97.8 F 70 16 100/55 L 98 Room Air 3 10/27/24 08:00 10/27/24 08:00 10/27/24 08:00 10/27/24 08:00 10/27/24 08:00 10/27/24 10:55 10/26/24 15:51 Laboratory Results - last 24 hr 10/26/24 13:50: WBC 5.9, RBC 4.20, Hgb 11.0 L, Hct 35.6 L, MCV 84.8, MCH 26.2 L, MCHC 30.9 L, RDW 16.1, Plt Count 243, MPV 9.8, Neut % (Auto) 59.2, Lymph % (Auto) 29.3, [place] % (Auto) 9.3, Eos % (Auto) 1.2, Baso % (Auto) 0.7, Neut # (Auto) 3.5, Lymph # (Auto) 1.7, [place] # (Auto) 0.6, Eos # (Auto) 0.1, Baso # (Auto) 0.0, Sodium 137, Potassium 4.0, Chloride 105, Carbon Dioxide 27, Anion Gap 9.0, BUN 12, Creatinine 0.70, Estimated Creat Clear 48, Estimated GFR 81, Est GFR ( Amer) 98, Glucose 50 L, Hemoglobin A1c 6.0, Calcium 8.6, Magnesium 2.0, Total Bilirubin 0.3, AST 30, ALT 15, Alkaline Phosphatase 101, Troponin I < 0.01, NT-Pro-B Natriuret Pep 249, Total Protein 6.2 L, Albumin 3.9, Globulin 2.3, Albumin/Globulin Ratio 1.7, TSH 1.21 10/26/24 17:49: Troponin I < 0.01 10/26/24 18:43: POC Glucose 128 H 10/26/24 21:06: Troponin I < 0.01 10/27/24 05:34: POC Glucose 87 10/27/24 05:35: WBC 5.2, RBC 3.94 L, Hgb 10.3 L, Hct 35.2 L, MCV 89.3, MCH 26.1 L, MCHC 29.3 L, RDW 16.8, Plt Count 205, MPV 10.5 H, Neut % (Auto) 46.9, Lymph % (Auto) 40.3, [place] % (Auto) 9.3, Eos % (Auto) 2.3, Baso % (Auto) 1.0, Neut # (Auto) 2.4, Lymph # (Auto) 2.1, [place] # (Auto) 0.5, Eos # (Auto) 0.1, Baso # (Auto) 0.1, PT 10.9, INR 0.98 10/27/24 08:46: Sodium 140, Potassium 4.6, Chloride 110 H, Carbon Dioxide 25, Anion Gap 9.6, BUN 8 D, Creatinine 0.60, Estimated Creat Clear 50, Estimated GFR 97, Est GFR ( Amer) 118 D, Glucose 86 D, Calcium 8.3 L, Magnesium 1.9, Total Bilirubin 0.5, AST 32, ALT 14, Alkaline Phosphatase 82, Total Protein 6.0 L, Albumin 3.6, Globulin 2.4, Albumin/Globulin Ratio 1.5, Triglycerides 110, Cholesterol 154, LDL Cholesterol Direct 49.23 L, VLDL Cholesterol 22, HDL Cholesterol 84 H, Cholesterol/HDL Ratio 1.8 I & O for Last 24 hours: Intake & Output 10/24/24 10/25/24 10/26/24 10/27/24 23:59 23:59 23:59 23:59 Intake Total 740 / 980 240 / 240 Output Total 300 / 300 Balance 740 / 980 -60 / -60 Weight 142 lb 7 oz 144 lb 8 oz Constitutional Constitutional: no acute distress and average body habitus *Routine HEENT Exam Head: Present normocephalic and atraumatic ENT: Present mucous membranes moist *Routine Neck Exam Neck: Present supple, full ROM and normal carotid upstroke; Absent JVD, carotid bruit or lymphadenopathy *Routine Respiratory Exam Respiratory: Present CTA bilaterally, normal respiratory effort, able to speak in complete sentences and symmetric chest movement *Routine Cardiovascular Exam Cardiovascular: Present RRR, Normal S1 and Normal S2; Absent murmur or gallop *Routine Abdominal Exam Abdominal: Present soft and normoactive bowel sounds; Absent tenderness, distended or organomegaly *Routine Extremities Exam Extremities: Present full ROM, pulses intact and normal capillary refill; Absent cyanosis, clubbing or edema *Routine Skin Exam Skin: Present intact and warm; Absent erythema *Routine Neurological Exam Neurological: Present alert, oriented X3 and CN II-XII intact; Absent sensory deficit or motor deficit Routine Psychiatric Exam Psychiatric: Present normal affect Meds Home Medications and Allergies Home Medications ?Medication ?Instructions ?Recorded ?Confirmed ?Type atorvastatin 40 mg tablet 40 mg PO HS 10/28/19 10/26/24 History cholecalciferol (vitamin D3) 125 125 mcg PO DAILY 10/28/19 10/26/24 History mcg (5,000 unit) capsule gabapentin 300 mg capsule 900 mg PO HS pain 10/28/19 10/26/24 History levetiracetam 500 mg tablet 500 mg PO BID 10/28/19 10/26/24 History montelukast 10 mg tablet 10 mg PO HS 10/28/19 10/26/24 History raloxifene 60 mg tablet 60 mg PO HS 10/28/19 10/26/24 History ranolazine 500 mg tablet,extended 500 mg PO BID 10/28/19 10/27/24 History release,12 hr venlafaxine 37.5 mg tablet 37.5 mg PO DAILY 10/28/19 10/26/24 History midodrine 5 mg tablet 5 mg PO BID 10/15/20 10/27/24 History omeprazole 40 mg capsule,delayed 40 mg PO DAILY 10/15/20 10/26/24 History release cyanocobalamin (vitamin B-12) 1,000 mcg IM MONTHLY 10/16/20 10/26/24 History 1,000 mcg/mL injection solution apixaban 5 mg tablet (Eliquis) 5 mg PO BID 08/06/21 10/26/24 History alendronate 70 mg tablet 70 mg PO DIRECTED 10/27/24 10/27/24 History gabapentin 300 mg capsule 300 mg PO DAILY 10/27/24 10/27/24 History metoprolol tartrate 25 mg tablet 25 mg PO DAILY 10/27/24 10/27/24 History New Prescriptions to Start Prescriptions: Allergies Allergy/AdvReac Type Severity Reaction Status Date / Time codeine (CODEINE) Allergy Intermediate I-RASH Verified 01/06/24 09:57 hydromorphone (From DILAUDID) Allergy Unknown I-HIVES Verified 01/06/24 09:57 Assessment and Plan *Assessment and plan (1) Syncope and collapse: Status: Acute Category: Medical Code(s): R55 - Syncope and collapse (2) Paroxysmal A-fib: Status: Acute Category: Medical Code(s): I48.0 - Paroxysmal atrial fibrillation (3) CAD in [place] artery: Status: Acute Category: Medical Code(s): I25.10 - Atherosclerotic heart disease of [place] coronary artery without angina pectoris (4) Hyperlipidemia: Status: Chronic Qualifiers: Hyperlipidemia type: mixed hyperlipidemia Qualified Code(s): E78.2 - Mixed hyperlipidemia Category: Medical Code(s): E78.5 - Hyperlipidemia, unspecified (5) Abnormal echocardiogram: Status: Acute Category: Medical Code(s): R93.1 - Abnormal findings on diagnostic imaging of heart and coronary circulation Plan Plan: 1. The patient presented to the emergency department following a syncopal episode. After pacemaker interrogation she was found to have no ventricular arrhythmias or high V rates. There was a far field signal and causing inappropriate mode switches. Her pacemaker has been optimized to stop the far field oversensing/signal. 2. CAD is present. The patient reports that she had a calcium CT of her chest last year at [facility] and was told she has blockages in her heart but nothing that needed intervention. She ruled out for an CT. Will get records from [facility]. 3. The patient did have an echocardiogram which shows a normal ejection fraction. The echocardiogram does show moderate hypokinesis in the LV apical wall. There is moderate RV dilation and moderate AI and mild MR. 4. Her blood pressure is well-controlled. 5. Her LDL goal is less than 55. Her LDL is 69. She is on a statin. 6. Will obtain a D-dimer to rule out PE due to her syncope. 7. Upon arrival to the emergency department the patient's glucose was 50. This may have also been the cause of her syncope. 8. Further recommendations will be made pending the patient's response to treatment and the results of her D-dimer today. If her D-dimer is negative, then the patient can be discharged home today and set up for an outpatient ischemic evaluation since her troponin is negative. If her D-dimer is positive, then she will need a CTA of her chest. Thank you for the opportunity to help participate in the care of this patient. All recommendations and orders are per Dr. Burnham.
[2024-10-27 12:00] VITALS: BP 114/63; PULSE 70; PULSE 72; RESP 20; TEMP 36.4; O2SAT 96
[2024-10-27 12:10] LABS: D-Dimer 0.67 ug/mL (0.0-0.5)
--- NOTE | 2024-10-27 13:08 | CT_ITS ---
FINAL REPORT TECHNIQUE: The patient was injected with IV contrast. Axial images were obtained through the chest in a PE protocol. 3-D reconstruction images were also performed. Individualized dose reduction techniques using automated exposure control or adjustment of the MA and/or KV according to patient's size were employed. CLINICAL HISTORY: Elevated D-dimer COMPARISON: None FINDINGS: Streak artifact is present from a left pacemaker device. Mediastinal vasculature is adequately opacified. No pulmonary artery filling defects are identified to suggest PE. There is no aortic dissection. There is no axillary adenopathy. There is no hilar or mediastinal adenopathy. The heart size is normal. There is no pericardial or pleural effusion. Limited images of the upper abdomen demonstrate a distended gallbladder. Postoperative changes are present in the stomach. No suspicious infiltrate or nodule is identified. IMPRESSION: No pulmonary embolus or dissection. Distended gallbladder. Reviewed, Interpreted and Dictated by Richie Randall MD Transcribed by Tabitha Jacinto Authenticated and [facility]
--- NOTE | 2024-10-27 13:39 | P.DS_ITS ---
<Statement entered by Lb Vizcaino MD - 10/28/24 10:34> Rounded on patient after nurse practitioner. Personally examined and interviewed patient. Agree with exam findings and care plan as documented. General Admission date:: 10/26/24 Discharge date: 10/27/24 HPI HPI HPI: Ms. Leilani Flores is a 74-year-old female who presented to the emergency department today via ambulance after a syncopal episode. She does have a primary medical history of a pacemaker, A-fib, GERD, TIA, seizures, hyperlipidemia, lumbar spondylosis, degenerative disc disease, chronic chest pain, asthma, depression, gastric bypass, chronic pain. She reports that she was walking out of her mobile home to go to the garden and felt completely fine, the next thing she knew she was lying on the ground after what appeared to be a fall. She reported pain in the back of her head. She denies chest pain, shortness of breath, lightheadedness, dizziness preceding the fall or afterwards. Per her she was slow to respond and her speech was garbled, he was worried that she may be having a another stroke so he called EMS. She was brought to the ED where assessment and workup revealed that her pacemaker showed she was atrially paced 73% at the time and ventricularly paced 99% of the time. Patient does have history of multiple pacemaker/GEN change placements in the past; last of which was November 2023. She has had previous placements at [facility] and currently sees a coin teller at the [facility] as well. Incidentally they also found her glucose to be 50 which brittney dumont corrected after dextrose was given. CT scan performed showed no abnormalities. Discussion was had with Dr. 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 Dr. Rivas consulted hospital medicine for admission and further cardiac workup, I agreed to admit the patient. plan of care as follows: Hospital Course Hospital Course Hospital Course: Ms. Leilani Flores is a 74-year-old female who presented to the emergency department via ambulance after a syncopal episode. She does have a primary medical history of a pacemaker, A-fib, GERD, TIA, seizures, hyperlipidemia, lumbar spondylosis, degenerative disc disease, chronic chest pain, asthma, depression, gastric bypass, chronic pain. She reports that she was walking out of her mobile home to go to the garden and felt completely fine, the next thing she knew she was lying on the ground after what appeared to be a fall. She reported pain in the back of her head. She denies chest pain, shortness of breath, lightheadedness, dizziness preceding the fall or afterwards. Per her she was slow to respond and her speech was garbled, he was worried that she may be having a another stroke so he called EMS. She was brought to the ED where assessment and workup revealed that her pacemaker showed she was atrially paced 73% of the time and ventricularly paced 99% of the time. Patient does have history of multiple pacemaker/GEN change placements in the past; last of which was November 2023. She has had previous placements at [facility] and currently sees a coin teller at the [facility] as well. Incidentally they also found her glucose to be 50 which quickly corrected after dextrose was given. CT scan performed showed no abnormalities. Discussion was had with Dr. 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 Dr. Rivas consulted hospital medicine for admission and further cardiac workup, I agreed to admit the patient. plan of care as follows: #Status post pacemaker #Syncope and collapse #Paroxysmal A-fib ?Assessment of the patient reveals that she has had to have multiple GEN changes in the past due to being paced regularly. She does have a history of cardiac ablation in 2002, but currently still has paroxysmal A-fib. Patient was admitted to the hospital for further recommendations from cardiology. Cardiology assessed patient today and recommendations were made for slight changes to her current pacemaker. CTA was obtained due to slightly elevated D- dimer of 0.67. CTA shows no acute findings, mildly distended gallbladder. Patient continued to have no chest pain, no shortness of breath, no abdominal pain, no nausea, no fever, no headache. No electrolyte abnormalities were noted on her lab work. ?Patient did have echocardiogram which showed a normal ejection fraction, 55%, also does show moderate hypokinesis in the LV apical wall, there is also moderate RV dilation and moderate AI and mild MR. ?Patient will follow-up with cardiology for ischemia workup outpatient. #History of seizures: Continue Keppra 500 mg twice daily #GERD: Continue omeprazole 40 mg daily #Depression: Continue venlafaxine 37.5 mg daily #Chronic chest discomfort: Continue ranolazine 1000 mg twice daily #Hypotension: Continue midodrine 5 mg twice daily #Hyperlipidemia: Continue atorvastatin 40 mg at bedtime. Total time spent on discharge 40 minutes in counseling, documentation, chart review, and direct care with patient. Exam Data for Last 24 hours Vital signs and Labs for Last 24 Hours: Temp Pulse Resp BP Pulse Ox O2 Del Method O2 Flow Rate 97.5 F L 72 20 114/63 96 Room Air 3 10/27/24 12:00 10/27/24 12:00 10/27/24 12:00 10/27/24 12:00 10/27/24 12:00 10/27/24 13:00 10/26/24 15:51 Laboratory Results - last 24 hr 10/26/24 13:50: WBC 5.9, RBC 4.20, Hgb 11.0 L, Hct 35.6 L, MCV 84.8, MCH 26.2 L, MCHC 30.9 L, RDW 16.1, Plt Count 243, MPV 9.8, Neut % (Auto) 59.2, Lymph % (Auto) 29.3, Catron % (Auto) 9.3, Eos % (Auto) 1.2, Baso % (Auto) 0.7, Neut # (Auto) 3.5, Lymph # (Auto) 1.7, Catron # (Auto) 0.6, Eos # (Auto) 0.1, Baso # (Auto) 0.0, Sodium 137, Potassium 4.0, Chloride 105, Carbon Dioxide 27, Anion Gap 9.0, BUN 12, Creatinine 0.70, Estimated Creat Clear 48, Estimated GFR 81, Est GFR ( Amer) 98, Glucose 50 L, Hemoglobin A1c 6.0, Calcium 8.6, Magnesium 2.0, Total Bilirubin 0.3, AST 30, ALT 15, Alkaline Phosphatase 101, Troponin I < 0.01, NT-Pro-B Natriuret Pep 249, Total Protein 6.2 L, Albumin 3.9, Globulin 2.3, Albumin/Globulin Ratio 1.7, TSH 1.21 10/26/24 17:49: Troponin I < 0.01 10/26/24 18:43: POC Glucose 128 H 10/26/24 21:06: Troponin I < 0.01 10/27/24 05:34: POC Glucose 87 10/27/24 05:35: WBC 5.2, RBC 3.94 L, Hgb 10.3 L, Hct 35.2 L, MCV 89.3, MCH 26.1 L, MCHC 29.3 L, RDW 16.8, Plt Count 205, MPV 10.5 H, Neut % (Auto) 46.9, Lymph % (Auto) 40.3, Catron % (Auto) 9.3, Eos % (Auto) 2.3, Baso % (Auto) 1.0, Neut # (Auto) 2.4, Lymph # (Auto) 2.1, Catron # (Auto) 0.5, Eos # (Auto) 0.1, Baso # (Auto) 0.1, PT 10.9, INR 0.98 10/27/24 08:46: Sodium 140, Potassium 4.6, Chloride 110 H, Carbon Dioxide 25, Anion Gap 9.6, BUN 8 D, Creatinine 0.60, Estimated Creat Clear 50, Estimated GFR 97, Est GFR ( Amer) 118 D, Glucose 86 D, Calcium 8.3 L, Magnesium 1.9, Total Bilirubin 0.5, AST 32, ALT 14, Alkaline Phosphatase 82, Total Protein 6.0 L, Albumin 3.6, Globulin 2.4, Albumin/Globulin Ratio 1.5, Triglycerides 110, Cholesterol 154, LDL Cholesterol Direct 49.23 L, VLDL Cholesterol 22, HDL Cholesterol 84 H, Cholesterol/HDL Ratio 1.8 10/27/24 11:50: D-Dimer 0.67 H Temp Pulse Resp BP Pulse Ox O2 Del Method O2 Flow Rate 97.8 F 70 16 100/55 L 98 Room Air 3 10/27/24 08:00 10/27/24 08:00 10/27/24 08:00 10/27/24 08:00 10/27/24 08:00 10/27/24 10:55 10/26/24 15:51 Laboratory Results - last 24 hr 10/26/24 13:50: WBC 5.9, RBC 4.20, Hgb 11.0 L, Hct 35.6 L, MCV 84.8, MCH 26.2 L, MCHC 30.9 L, RDW 16.1, Plt Count 243, MPV 9.8, Neut % (Auto) 59.2, Lymph % (Auto) 29.3, Catron % (Auto) 9.3, Eos % (Auto) 1.2, Baso % (Auto) 0.7, Neut # (Auto) 3.5, Lymph # (Auto) 1.7, Catron # (Auto) 0.6, Eos # (Auto) 0.1, Baso # (Auto) 0.0, Sodium 137, Potassium 4.0, Chloride 105, Carbon Dioxide 27, Anion Gap 9.0, BUN 12, Creatinine 0.70, Estimated Creat Clear 48, Estimated GFR 81, Est GFR ( Amer) 98, Glucose 50 L, Hemoglobin A1c 6.0, Calcium 8.6, Magnesium 2.0, Total Bilirubin 0.3, AST 30, ALT 15, Alkaline Phosphatase 101, Troponin I < 0.01, NT-Pro-B Natriuret Pep 249, Total Protein 6.2 L, Albumin 3.9, Globulin 2.3, Albumin/Globulin Ratio 1.7, TSH 1.21 10/26/24 17:49: Troponin I < 0.01 10/26/24 18:43: POC Glucose 128 H 10/26/24 21:06: Troponin I < 0.01 10/27/24 05:34: POC Glucose 87 10/27/24 05:35: WBC 5.2, RBC 3.94 L, Hgb 10.3 L, Hct 35.2 L, MCV 89.3, MCH 26.1 L, MCHC 29.3 L, RDW 16.8, Plt Count 205, MPV 10.5 H, Neut % (Auto) 46.9, Lymph % (Auto) 40.3, Catron % (Auto) 9.3, Eos % (Auto) 2.3, Baso % (Auto) 1.0, Neut # (Auto) 2.4, Lymph # (Auto) 2.1, Catron # (Auto) 0.5, Eos # (Auto) 0.1, Baso # (Auto) 0.1, PT 10.9, INR 0.98 10/27/24 08:46: Sodium 140, Potassium 4.6, Chloride 110 H, Carbon Dioxide 25, Anion Gap 9.6, BUN 8 D, Creatinine 0.60, Estimated Creat Clear 50, Estimated GFR 97, Est GFR ( Amer) 118 D, Glucose 86 D, Calcium 8.3 L, Magnesium 1.9, Total Bilirubin 0.5, AST 32, ALT 14, Alkaline Phosphatase 82, Total Protein 6.0 L, Albumin 3.6, Globulin 2.4, Albumin/Globulin Ratio 1.5, Triglycerides 110, Cholesterol 154, LDL Cholesterol Direct 49.23 L, VLDL Cholesterol 22, HDL Cholesterol 84 H, Cholesterol/HDL Ratio 1.8 I & O for Last 24 hours: Intake & Output 10/24/24 10/25/24 10/26/24 10/27/24 23:59 23:59 23:59 23:59 Intake Total 740 / 980 360 / 360 Output Total 300 / 300 Balance 740 / 980 60 / 60 Weight 64.609 kg 65.544 kg Intake & Output 10/24/24 10/25/24 10/26/24 10/27/24 23:59 23:59 23:59 23:59 Intake Total 740 / 980 240 / 240 Output Total 300 / 300 Balance 740 / 980 -60 / -60 Weight 142 lb 7 oz 144 lb 8 oz Constitutional Constitutional: no acute distress, average body habitus and cooperative *Routine HEENT Exam Head: Present normocephalic and atraumatic ENT: Present mucous membranes moist *Routine Neck Exam Neck: Present supple and full ROM; Absent JVD *Routine Respiratory Exam Respiratory: Present CTA bilaterally, normal respiratory effort, able to speak in complete sentences and symmetric chest movement; Absent wheezes or crackles *Routine Cardiovascular Exam Cardiovascular: Present RRR, Normal S1 and Normal S2; Absent murmur or gallop *Routine Abdominal Exam Abdominal: Present soft and normoactive bowel sounds; Absent tenderness, distended or organomegaly *Routine Extremities Exam Extremities: Present full ROM, pulses intact and normal capillary refill; Absent cyanosis, clubbing or edema *Routine Skin Exam Skin: Present intact and warm; Absent erythema *Routine Neurological Exam Neurological: Present alert, oriented X3, CN II-XII intact, vision grossly intact, hearing grossly intact and normal speech; Absent sensory deficit or motor deficit Routine Psychiatric Exam Psychiatric: Present normal affect Results Data Completed and Pending Labs on day of discharge: Labs from last 24 hours 10/27/24 10/27/24 10/27/24 11:50 08:46 05:35 WBC 5.2 RBC 3.94 L Hgb 10.3 L Hct 35.2 L MCV 89.3 MCH 26.1 L MCHC 29.3 L RDW 16.8 Plt Count 205 MPV 10.5 H Neut % (Auto) 46.9 Lymph % (Auto) 40.3 Catron % (Auto) 9.3 Eos % (Auto) 2.3 Baso % (Auto) 1.0 Neut # (Auto) 2.4 Lymph # (Auto) 2.1 Catron # (Auto) 0.5 Eos # (Auto) 0.1 Baso # (Auto) 0.1 PT 10.9 INR 0.98 D-Dimer 0.67 H Sodium 140 Potassium 4.6 Chloride 110 H Carbon Dioxide 25 Anion Gap 9.6 BUN 8 D Creatinine 0.60 Estimated Creat Clear 50 Estimated GFR 97 Est GFR ( Amer) 118 D Glucose 86 D POC Glucose Hemoglobin A1c Calcium 8.3 L Magnesium 1.9 Total Bilirubin 0.5 AST 32 ALT 14 Alkaline Phosphatase 82 Troponin I NT-Pro-B Natriuret Pep Total Protein 6.0 L Albumin 3.6 Globulin 2.4 Albumin/Globulin Ratio 1.5 Triglycerides 110 Cholesterol 154 LDL Cholesterol Direct 49.23 L VLDL Cholesterol 22 HDL Cholesterol 84 H Cholesterol/HDL Ratio 1.8 TSH 10/27/24 10/26/24 10/26/24 05:34 21:06 18:43 WBC RBC Hgb Hct MCV MCH MCHC RDW Plt Count MPV Neut % (Auto) Lymph % (Auto) Catron % (Auto) Eos % (Auto) Baso % (Auto) Neut # (Auto) Lymph # (Auto) Catron # (Auto) Eos # (Auto) Baso # (Auto) PT INR D-Dimer Sodium Potassium Chloride Carbon Dioxide Anion Gap BUN Creatinine Estimated Creat Clear Estimated GFR Est GFR ( Amer) Glucose POC Glucose 87 128 H Hemoglobin A1c Calcium Magnesium Total Bilirubin AST ALT Alkaline Phosphatase Troponin I < 0.01 NT-Pro-B Natriuret Pep Total Protein Albumin Globulin Albumin/Globulin Ratio Triglycerides Cholesterol LDL Cholesterol Direct VLDL Cholesterol HDL Cholesterol Cholesterol/HDL Ratio TSH 10/26/24 10/26/24 17:49 13:50 WBC 5.9 RBC 4.20 Hgb 11.0 L Hct 35.6 L MCV 84.8 MCH 26.2 L MCHC 30.9 L RDW 16.1 Plt Count 243 MPV 9.8 Neut % (Auto) 59.2 Lymph % (Auto) 29.3 Catron % (Auto) 9.3 Eos % (Auto) 1.2 Baso % (Auto) 0.7 Neut # (Auto) 3.5 Lymph # (Auto) 1.7 Catron # (Auto) 0.6 Eos # (Auto) 0.1 Baso # (Auto) 0.0 PT INR D-Dimer Sodium 137 Potassium 4.0 Chloride 105 Carbon Dioxide 27 Anion Gap 9.0 BUN 12 Creatinine 0.70 Estimated Creat Clear 48 Estimated GFR 81 Est GFR ( Amer) 98 Glucose 50 L POC Glucose Hemoglobin A1c 6.0 Calcium 8.6 Magnesium 2.0 Total Bilirubin 0.3 AST 30 ALT 15 Alkaline Phosphatase 101 Troponin I < 0.01 < 0.01 NT-Pro-B Natriuret Pep 249 Total Protein 6.2 L Albumin 3.9 Globulin 2.3 Albumin/Globulin Ratio 1.7 Triglycerides Cholesterol LDL Cholesterol Direct VLDL Cholesterol HDL Cholesterol Cholesterol/HDL Ratio TSH 1.21 DS: Diagnosis Discharge Diagnosis (1) Syncope and collapse: Status: Acute Code(s): R55 - Syncope and collapse (2) Paroxysmal A-fib: Status: Acute Code(s): I48.0 - Paroxysmal atrial fibrillation (3) CAD in [place] artery: Status: Acute Code(s): I25.10 - Atherosclerotic heart disease of [place] coronary artery without angina pectoris (4) Hyperlipidemia: Status: Chronic Code(s): E78.5 - Hyperlipidemia, unspecified Qualifiers: Hyperlipidemia type: mixed hyperlipidemia Qualified Code(s): E78.2 - Mixed hyperlipidemia (5) Abnormal echocardiogram: Status: Acute Code(s): R93.1 - Abnormal findings on diagnostic imaging of heart and coronary circulation Meds Home Medications and Allergies Home Medications ?Medication ?Instructions ?Recorded ?Confirmed ?Type atorvastatin 40 mg tablet 40 mg PO HS 10/28/19 5 History cholecalciferol (vitamin D3) 125 125 mcg PO DAILY 10/0810/26/24 History mcg (5,000 unit) capsule gabapentin 300 mg capsule 900 mg PO HS pain 10/28/19 0 10/26/24 History levetiracetam 500 mg tablet 500 mg PO BID 10/28/19 History montelukast 10 mg tablet 10 mg PO HS 10/28/19 5 History raloxifene 60 mg tablet 60 mg PO HS 10/28/19 5 History ranolazine 500 mg tablet,extended 500 mg PO BID 10/27/24 History release,12 hr venlafaxine 37.5 mg tablet 37.5 mg PO DAILY 10/28/19 0 10/26/24 History midodrine 5 mg tablet 5 mg PO BID 10/15/20 5 History omeprazole 40 mg capsule,delayed 40 mg PO DAILY 10/26/24 History release cyanocobalamin (vitamin B-12) 1,000 mcg IM MONTHLY 12/2710/26/24 History 1,000 mcg/mL injection solution apixaban 5 mg tablet (Eliquis) 5 mg PO BID 08/06/21 History alendronate 70 mg tablet 70 mg PO DIRECTED 5 10/27/24 History gabapentin 300 mg capsule 300 mg PO DAILY 10/27/24 History metoprolol tartrate 25 mg tablet 25 mg PO DAILY 10/27/24 History New Prescriptions to Start Prescriptions: Allergies Allergy/AdvReac Type Severity Reaction Status Date / Time codeine (CODEINE) Allergy Intermediate I-RASH Verified 01/06/24 09:57 hydromorphone (From DILAUDID) Allergy Unknown I-HIVES Verified 01/06/24 09:57 Discharge Plan Disposition Patient Disposition: Home, Self-Care Condition: Good Follow up Plan Follow up with: Shobha West APRN [Nurse Practitioner, Cardiology] - Enter time for follow up Prescriptions/Medication Reconciliation: Continued Eliquis 5 mg tablet 5 mg PO BID midodrine 5 MG tablet 5 mg PO BID omeprazole 40 MG capsule,delayed release(DR/EC) 40 mg PO DAILY cyanocobalamin (vitamin B-12) 1,000 MCG/ML solution 1,000 mcg IM MONTHLY atorvastatin 40 MG tablet 40 mg PO HS levetiracetam 500 MG tablet 500 mg PO BID venlafaxine 37.5 MG tablet 37.5 mg PO DAILY gabapentin 300 MG capsule 900 mg PO HS montelukast 10 MG tablet 10 mg PO HS ranolazine 500 MG tablet extended release 12 hr 500 mg PO BID raloxifene 60 MG tablet 60 mg PO HS cholecalciferol (vitamin D3) 125 MCG capsule 125 mcg PO DAILY alendronate 70 mg tablet 70 mg PO DIRECTED Patient Comments: TAKE 1 TABLET 30 MINUTES BEFORE THE FIRST FOOD, BEVERAGE, OR MEDICINE OF THE DAY WITH PLAIN WATER gabapentin 300 mg capsule 300 mg PO DAILY Patient Comments: TAKE 1 CAPSULE EVERY MORNING AND TAKE 3 CAPSULESAT BEDTIME metoprolol tartrate 25 mg tablet 25 mg PO DAILY Patient Comments: TAKE 1 TABLET ONCE DAILY WITH FOOD Problem Reconciliation Problems Reviewed?: Yes Patient Discharge Instructions ACTIVITY: Continue current activity DIET: continue same diet Patient Instructions: DI for Syncope in Adults (Fainting), DI for Closed Head Injury Print Language: [place]itanian Providers Primary Care Provider: Provider,Referral Admit Provider: Lb Vizcaino Attending Provider: Lb Vizcaino
[2024-10-27 16:00] VITALS: BP 122/67; PULSE 71; PULSE 80; RESP 17; TEMP 36.4; O2SAT 99
[2024-10-27] MEDS: 0.9 % SODIUM CHLORIDE 50 ML VIAL 10 ML IV (16:09)
[2024-10-27] MEDS: IOPAMIDOL-370 (76%);100ML BOTTLE 85 ML IV (16:09)
--- NOTE | 2024-10-28 10:35 | SW/DCPLANNER ---
Spoke with patient on the phone. Patient stated that she is doing good. Patient stated that she has not heard from Cardiology and will call them if she hasnt to schedule a follow up. Patient stated that she was not prescribed any new medicine. Patient stated that she has no concerns or questions at this time. Reza Gee
== END 2024-10-27 17:41 | disposition home or self-care (01) ==
LOC: ER 13:24 → 2ND 15:18
PROVIDERS: Nurse Practitioner Family; Admitting Provider Internal Medicine Adolescent Medicine; Emergency Provider Student in an Organized Health Care Education/Training Program; Visit Provider Internal Medicine Adolescent Medicine
DX: R55 Syncope and collapse (principal); I48.0 Paroxysmal atrial fibrillation; I25.10 Atherosclerotic heart disease of native coronary artery without angina pectoris; E78.2 Mixed hyperlipidemia; R56.9 Unspecified convulsions; K21.9 Gastro-esophageal reflux disease without esophagitis; F32.A Depression, unspecified; R07.89 Other chest pain; K82.8 Other specified diseases of gallbladder; I95.9 Hypotension, unspecified; J45.909 Unspecified asthma, uncomplicated; E16.2 Hypoglycemia, unspecified; G89.29 Other chronic pain; J43.9 Emphysema, unspecified; R93.1 Abnormal findings on diagnostic imaging of heart and coronary circulation; M50.321 Other cervical disc degeneration at C4-C5 level; M50.322 Other cervical disc degeneration at C5-C6 level; M50.323 Other cervical disc degeneration at C6-C7 level; Z86.73 Personal history of transient ischemic attack (TIA), and cerebral infarction without residual deficits; Z88.5 Allergy status to narcotic agent; Z98.84 Bariatric surgery status; Z95.0 Presence of cardiac pacemaker; Z79.01 Long term (current) use of anticoagulants; Z79.899 Other long term (current) drug therapy
CPT/HCPCS: 36415; 70450; 71045; 71275; 72125; 80053; 80061; 82962; 83036; 83735; 83880; 84443; 84484; 85025; 85378; 85610; 93005; 93306; 96374; 97161; 97166; 99284; G0378; J2405; J7120; Q9967

== ENCOUNTER 2024-11-14 16:23 | Outpatient (CLI) | payer MEDICARE, BC, SELFPAY ==
--- OUTSIDE RECORDS SUMMARY | 2023-12-14 09:15 | XMS_ITS ---
Author Organization [facility] Address 12[address] [facility] [address] [place] [phone] Care Team Providers Care Processor Inspector Name Role Phone Arjun Barrett Primary Care Provider Dai Avalos Unavailable [phone] Allergies Allergen (clinical drug ingredient) Drug/Non Drug [...] review and pick correct strength-formulati on from [employer] options. If intended option is not shown, [...] review and pick correct strength-formulati on from [employer] options. If intended option is not shown, [...] Duration: 30 days 12/14/2023 Active Vital Signs Blood pressure systolic 116 mm Hg 12/14/19 24 Blood pressure diastolic 60 mm Hg 024 Heart Rate 57 /min 12/14/2023 Height 60 in 12/14/2023 Weight 151.0 lbs 12/14/2023 BMI 29.49 kg/m2 12/14/2023 Encounters Encounter Location Date Provider Diagnosis [facility] [address] [place] [address] [address] [place], [place] [phone] 12/14/2023 Dai Avalos Hip pain M25.559 Assessments [...] will notify of te st results, Reason: Provider Name:Daiholly emery, 11/14/2024 03:30:00 PM, [address], [place], [phone], Progress Notes * Penny FLORESalvaro LockaDOB: 1950 (74 yo F)Acc No.[id number]:12/14/2023 Progress Notes Patient: Dagmar TORRES Provider: LIBERTAD Connor :1950 A ge:73 Y S ex:Female Date:12/14/2023 Address:[place] Pcp:Arjun Barrett Subjective: * Chief Complaints: * [...] 05/2022. * [facility] ER-syncope 10/24/2019, [facility] ER - syncope 10/28/2019. * Family History: [...] *Please review and pick correct strength-formulation from [employer]an options. If intended option is not shown, [...] *Please review and pick correct strength-formulation from [employer]span options. If intended option is not shown, [...] reconciled with the patient * Allergies: C odliudmila, Trangid. 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 * Examination: G eneral [...] * Images: Billing Information: * Visit Code: 78623 Office Visit, Est Pt., Level 3. * Procedure Codes: 85191 PULSE OX. * Electronic signature of Anjelica mei Robbie , PARK ATTENDANT on 11/14/2024 at 04:28 PM EDT Sign off status: Pending * Provider: LIBERTAD Connor Date: 1 Generated for Antonio maynard/Aikra/eTransmitting on: 0 11/14/2024 04:28 PM EDT History and Physical Notes * [...]
--- OUTSIDE RECORDS SUMMARY | 2024-01-05 06:00 | XMS_ITS ---
Author Organization [facility] Address 1210 [facility] [address] [place] [phone] Care Team Providers Care Secretary Bookkeeper Name Role Phone Arjun Barertt Primary Care Provider [phone] Allergies Allergen (clinical drug ingredient) Drug/Non Drug Allergy documented on EMR Reaction Allergy Type Onset Date Status hydromorphone Dilaudid Unknown Drug Allergy Act lico codeine Codeine Unknown Drug Allergy Active REASON FOR VISIT Follow Up [facility] ER - [place] Medications Medication SIG [...] review and pick correct strength-formulati on from [employer] options. If intended option is not shown, discontinue and re-order from [employer] Search* Active Vitamin D3 50 MCG (2000 UT) 1 tab(s) orally once a day; Duration: 90 days Active NEBULIZER SET UP FOR ADULT DIRECTED *Please review for potential replacement for e-prescription and drug interaction check* 07/31/2021 Active Ipratropium-Albuterol 3/ 0.5/ 3 ML 3 ML TID *Please review and pick correct strength-formulati on from [employer] options. If intended option is not shown, [...] Encounter Location Date Provider Diagnosis [facility] 12[address] [facility] [address] [place] [phone] 01/05/2024 Arjun Matamoroseet Fall W19.XXXA and Radial fracture S52.90XA Assessments [...] Next Appt Details Follow Up: prn, Reason: Provider Name:Dai grayhalie, 11/14/2024 03:30:00 PM, [address] [facility] [address], [address] , [place], [place], [id number], Progress Notes * Dagmar FLORES AshvinaDOB: 1950 (74 yo F)Acc No.[id number]:01/05/2024 Progress Notes Patient: Dagmar TORRES Provider: Arjun Barrett M.D. :1950 A ge:73 Y S ex:Female Date:01/05/2024 Address:[address] [place], [place] [phone] Subjective: * Chief Complaints: * 1 . Follow Up [facility] ER - [place]. * HPI: H [...] no R joaquin. n o H rosalba. Ruthie ASTROENTEROLOGY: no N ausea. n o V [...] 05/2022. * [facility], [facility] ER-syncope 10/24/2019, [facility] ER - syncope 10/28/2019, [facility] ER - Fall- [place] 12/30/2023. * [...] review and pick correct strength- formulation from KeepFu options. If intended option is not shown, [...] *Please review and pick correct strength-formulation from KeepFu options. If intended option is not shown, [...] C odeine, Dilaudid. Objective: * Vitals: W t:150.6, Temp:97.9, BP:110/62, [...] * Images: Billing Information: * Visit Code: 18856 Office Visit, Est Pt., Level 3. * Procedure Codes: * Electronic signature of Arjun Barrett MD on 11/14/2024 at 04:27 PM EDT Sign off status: Pending * Provider: Arjun Barrett M.D. Date: Generated for Antonio maynard/Akira/Kermitsmitting on: 0 11/14/2024 04:27 PM EDT History and Physical Notes * [...]
--- OUTSIDE RECORDS SUMMARY | 2024-03-26 05:00 | XMS_ITS ---
Author Organization [facility] Address [address] [address] Care Team Providers Care Hotshot Superintendent Name Role Phone Migration, Provider Unavailable Unavailable REASON FOR VISIT EMR-Julien Encounters Encounter Location Date Provider Diagnosis [facility] [address] [facility] [address] [place] [address] 03/26/2024 Provider Migration Plan Of Treatment No Information Progress Notes * IDA MOTLEY GDOB: [birth year] (74 yo F)Acc No.[id number]:03/26/2024 Patient: Scott ROMEO IDA Ruthie :1950 A ge:73 Y S ex:Female Address:[address] [place] [address] [address], [place], [address] Subjective: * Chief Complaints: * E MR-Julien * * Date:
--- OUTSIDE RECORDS SUMMARY | 2024-03-27 05:00 | XMS_ITS ---
Author Organization [facility] Address [address] [facility] [address] [place] [address] Care Team Providers Care Tab Cutting Machine Operator Name Role Phone Migration, Provider Unavailable Unavailable Allergies Allergen (clinical drug ingredient) Drug/Non Drug Allergy documented on EMR Reaction Allergy Type Onset Date Status Hydromorphone / Dilaudid?, Palladone TM (uncoded) Unknown Allergy Active codeine Codeine Unknown Drug Allergy Active REASON FOR VISIT EMR-Julien Encounters Encounter Location Date Provider Diagnosis [facility] [address] [facility] [address] [place] [address] 03/27/2024 Provider Migration Plan Of Treatment No Information Progress Notes * IDA MOTLEY GDOB: [birth year] (74 yo F)Acc No.[id number]:03/27/2024 Patient: IDA TORRES :1950 A ge:73 Y S ex:Female Address:[address] [place] [address] [address], [place], [address] Subjective: * Chief Complaints: * E MR-Julien * Allergies: H ydromorphone / Dilaudid?, Palladone TM: AllergyCodeine: Allergy * * Date:
--- OUTSIDE RECORDS SUMMARY | 2024-05-05 08:45 | XMS_ITS ---
Author Organization [facility], [facility] Address [address] [place] [address] Care Team Providers Care Powder Compounder Name Role Phone Joy PUENTES, Fran Primary Care Provider Piero Miranda MD, Negro Unavailable [phone] REASON FOR VISIT egd Encounters Encounter Location Date Provider Diagnosis [facility] [address] [place] [address] 05/05/2024 Negro Miranda Plan Of Treatment Next Appt Details Provider Name:Negro molina, 09/29/2028 11:00:00 AM, [address] [place], [address], Progress Notes * Penny FLORESena GDOB: [birth year] (74 yo F)Acc No.[id number]:05/05/2024 Patient: Dagmar TORRES Provider: Alicia Oseguera M.D :1950 A ge:73 Y S ex:Female Date:05/05/2024 Address:[address] [place], [place] [id number] Pcp:Fran Hamilton MD * Images: * Electronic signature of Catarino Miranda MD on 11/14/2024 at 03:19 PM EDT Sign off status: Pending * Provider: Alicia Oseguera M.D Date: 0 05/05/2024 Generated for Printi ng/Faxing/eTransmitting on: 0 11/14/2024 03:19 PM EDT
--- OUTSIDE RECORDS SUMMARY | 2024-06-09 04:40 | XMS_ITS ---
Author Organization [facility] Address [address] [place] [address] Care Team Providers Care Senior Director Creative Services Name Role Phone MAX HAMILTON Primary Care Provider [phone] REASON FOR VISIT 1MTH F/UP ON LABS Social History Sex Assigned At : Social History Observation Description Sex Assigned At Female Encounters Encounter Location Date Provider Diagnosis [facility] [address] [place] [address] 06/09/2024 MAX HAMILTON Plan Of Treatment Next Appt Details Provider Name:MAX HAMILTON, 01/18/2025 08:30:00 AM, [address] [place] [address], [address], Provider Name:Kolton Vazquez, 04:40:00 PM, [address] [place] [address], [address], Provider Name:Girma nance, 05/29/2025 02:00:00 PM, [address] [place] [address], [address], Progress Notes * IDA MOTLEY GDOB: [birth year] (74 yo F)Acc No.[id number]:06/09/2024 Progress Notes Patient: ANTONI TORRESENA Ruthie Provider: Arjun Hamilton MD :1950 A ge:73 Y S ex:Female Date:06/09/2024 Address:[address] [place] [address] , [address], [facility] Structured Data:Seasonal : Y es; How did you hear about our practice? : Established patient Subjective: * Chief Complaints: * 1 MTH F/UP ON LABS Care Plan Details* * Electronic signature of MAX HAMILTON M.D. on 11/14/2024 at 03:16 PM EDT Sign off status: Pending * Provider: Arjun Hamilton MD Date: 0 06/09/2024 Generated for Antonio maynard/Akira/Mariitting on: 0 11/14/2024 03:16 PM EDT
--- OUTSIDE RECORDS SUMMARY | 2024-06-22 05:45 | XMS_ITS ---
Author Organization [facility] [place] Address [address] [facility] [address] [place] [address] Care Team Providers Care Network Cabler Name Role Phone Fran Hamilton Primary Care Provider Adi Hayes [phone] REASON FOR VISIT F/U LEFT HIP Encounters Encounter Location Date Provider Diagnosis [facility] [place] [address] [address] 06/22/2024 Adi Sanabria Plan Of Treatment Next Appt Details Provider Name:Faby Bonilla, 01/18/2025 10:00:00 AM, [address] [address], [place], [address], Progress Notes * Dagmar FLORES GDOB: [birth year] (74 yo F)Acc No.[id number]:06/22/2024 Progress Notes Patient: Dagmar TORRES Provider: Aaron Sanabria Jr., MD :1950 A ge:74 Y S ex:Female Date:06/22/2024 Address:[address] [place] [address] [address] , [address], [facility] Pcp:Fran Hamilton Subjective: * Chief Complaints: * 1 . F/U LEFT HIP. * Medical History: Objective: * Vitals: Assessment: Plan: * Treatment: * Billing Information: * Visit Code: * Procedure Codes: * Electronic signature of Adi Sanabria MD on 11/14/2024 at 03:12 PM EDT Sign off status: Pending * Provider: Aaron Sanabria Jr., MD Date: 0 06/22/2024 Generated for Antonio maynard/Akira/Solis on: 0 11/14/2024 03:12 PM EDT
--- OUTSIDE RECORDS SUMMARY | 2024-06-23 09:30 | XMS_ITS ---
Author Organization [facility] Address [address] [place] [address] Care Team Providers Care Membership Sales Advisor Name Role Phone MAX LOPEZ Primary Care Provider Ashlee Argueta Unavailable [phone] Allergies Allergen (clinical drug ingredient) Drug/Non Drug Allergy documented on EMR Reaction Allergy Type Onset Date Status Aspirin (ASA) Gastric ulcer Drug Allergy Active Codeine Unknown Drug Allergy 04/25/2005 Active hydromorphone Dilaudid Unknown Drug Allergy 04/25/2005 Ac tive trazodone traZODone HCl headache Drug Allergy 01/23/2021 Ac tive REASON FOR VISIT 1MTH F/UP ON LABS, pt was in hosp Medications Medication SIG (Take, Route, Frequency, Duration) Notes Start Date End Date Status Syringes with Beaver 1 cc syringes with 25 gauge needles for B12 injections monthly; Duration: 90 days 05/07/2017 Not-Taking Vitamin B-1 100 MG Tablet 1 tablet Orall y Once a day Active Vitamin B-6 100 MG Tablet 1 tablet Orall y Once a day Active Flonase Allergy Relief 50 MCG/ACT Suspension 1 spray in each nostril Nasally Twice a day; Duration: 30 days 05/09/2024 Active traMADol HCl 50 MG Tablet 1 tablet as ne eded ACUTE PAIN EXCEPTION Orally Two times a day; Duration: 10 days PRN 06/02/2023 Active Midodrine HCl 5 MG Tablet 1 tablet at 7 am 1 tablet at 11 am 1 tablet at 4 pm Orally; Duration: 30 days As needed Active Gabapentin 300 MG Capsule TAKE 1 CAPSULE EVERY MORNING AND TAKE 3 CAPSULES AT BEDTIME; Duration: 90 days Active Ranolazine ER 1000 MG Tablet Extended Release 12 Hour 1 tablet Oral Twice a day; Duration: 90 days Active ALPRAZolam 0.25 MG Tablet 1 tablet Orally Twice a day; Duration: 10 days As needed 05/02/2024 Active ARIPiprazole 20 MG Tablet 1 tablet Orall y Once a day; Duration: 30 days 05/02/2024 Not-Abilio g Effexor XR 75 MG Capsule Extended Release 24 Hour 1 capsule with food Oral Once a day; Duration: 90 days Active Metoprolol Tartrate 25 MG Tablet 1 tablet with food Oral every evening; Duration: 90 days Active Montelukast Sodium 10 MG Tablet Take 1 tablet by mouth once daily; Duration: 90 days Active Atorvastatin Calcium 40 MG Tablet 1 tablet Orally every night; Duration: 90 days Active Eliquis 5 MG Tablet Take 1 tablet Orally Twice a day; Duration: 90 days Active Omeprazole 40 MG Capsule Delayed Release 1 capsule Orally twice a day; Duration: 30 days 06/14/2020 Active Sucralfate 1 GM Tablet 1 tablet on an em pty stomach Oral Twice a day; Duration: 30 days 03/14/2024 Active Trelegy Ellipta 200-62.5-25 MCG/ACT Aerosol Powder Breath Activated Inhale 1 puff by mouth once daily. Rinse mouth after each use; Duration: 30 days Active Albuterol Sulfate HFA 108 (90 Base) MCG/ACT Aerosol Solution 1 puff as needed Inhalation every 4-6 hours Active Albuterol Sulfate 1.25 MG/3ML Nebulization Solution 3 ml as needed Inhalation Three times a day dx j44.9; Duration: 90 days Active Keppra 500 MG Tablet 1 tablet Orally anni ry 12 hrs; Duration: 90 days Active Cyanocobalamin 1000 MCG/ML Solution 1,000mcg / 1cc q month Injection once a month; Duration: 90 days Active Social History Sex Assigned At : Social History Observation Description Sex Assigned At Female Social History [facility] Social History Social Info Question Answer 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 Yes What do you drink? Soda How many servings per day: 2 Alcohol (AUDIT-C) Patient does drink alc ohol. Screening performed for alcohol misuse using AUDIT-C (G0442) How often do you have a drink containing alcohol? (+4) 4 or more times a week How many drinks containing alcohol do you have on a typical day?? (+0) 1 or 2 drinks How often do you have 6 or more drinks in one sitting? (+0) Never AUDIT-C Score: 4 Score interpretation for: female of 3 or more: Positive screening Positive AUDIT-C screening. continue to SMAST screening 1. Do you feel that you are a normal drinker? Yes 2. Does your , , a parent, or other near relative ever worry or complain about your drinking? No 3. Do you ever feel guilty about your drinking? No 4. Do friends or relatives think you are a normal drinker? Yes 5. Are you able to stop drinking when you want to? Yes 6. Have you ever attended a meeting of Alcoholics Anonymous (AA)? No 7. Has your drinking ever created problems between you and your , , a parent or other near relative? No 8. Have you ever gotten into trouble at work because of your drinking? No 9. Have you ever neglected your obligations, your family, or your work for two or more days in a row because you were drinking? No 10. Have you ever gone to anyone for help about your drinking? no 11. Have you ever been in a hospital because of drinking? No 12. Have you ever been arrested for drunken driving, driving while intoxicated, or driving under the influence of alcoholic beverages? No 13. Have you ever been arrested, even for a few hours, because of other drunken behaviors? No SMAST Total score (each yes is 1 point): 3 SMAST score interpretation: 3: Borderline alcohol problem reported Anxiety (DISHA-2) 1. Feeling nervous, anxious, or on edg e 0- Not at all 2. Not being able to stop or control worrying 0- Not at all DISHA-2 Score: 0 Tobacco Tobacco use assessed: Never used (1036F) Social Connection and Isolat ion Survey (NHANES) What is your current marital status? In a week, # of times you ta lk on the phone w/family, friends, neighbors? 3 or more interactions per week How often do you get togethe r with friends or relatives? 3 or more interactions per week How often do you attend [facility] or islam services? More than 4 times per year Do you belong to any clubs or organizations? Yes Total Social Isolation Score (NHANES): 0 Substance abuse (CAGE, etc) Do you smoke marijuana? No CAGE- Do you use any recreational drugs? No What drugs have you experime nted with, used in the past or are currently using? None Have you ever gone to rehab? No Have you ever been hospitalized for an overdose? No Intimate Partner Violence (HARK) Within the last year, have you been humiliated or emotionally abused in other ways by your partner or your ex-partner? No (0) Within the last year, have you been daniella id of your partner or ex-partner? No (0) Within the last year, have y ou been raped or forced to have any kind of sexual activity by your partner or ex-partner? No (0) Within the last year, have y ou been kicked, hit, slapped or otherwise physically hurt by your partner or ex-partner? No (0) Total HARK score: 0 Household & Education Lives alone? No Highest level of school comp leted or highest degree received? Bachelors degree (e.g., MA, MS, Brain, MEd, CHEF FRENCH, ALISTAIR) Occupation retired Marital status: # of children: 1 Medicare coverage? Yes Due to: Age 63 Barriers to Care How hard is it for y ou to pay for basics (food, housing, medical care, heating)? Not very hard Do you have any problems getting care due to tra nsportation? No Do you have any problems getting care due to fin ancial reasons? No Do you have any problems getting care due to phy sical limitations? No Do you have any problems getting care due langua ge barriers? No Do you have any problems getting care due to lac k of a support system? No Do you have any problems getting care due to oth er ... no Problems Problem Type SNOMED Code ICD Code Onset Dates Problem Status W/U Status Risk Notes Problem Chronic diastolic heart failure (099567027) Chronic heart failure with preserved ejection fraction (HFpEF) (I50.32) Active confirmed Problem Peripheral vascular disease (223188606) PAD (peripheral artery disease) (I73.9) Active confirmed Vital Signs Height 61 in 06/23/2024 Weight 142 lbs 06/23/2024 BMI 26.83 kg/m2 06/23/2024 Encounters Encounter Location Date Provider Diagnosis [facility] [address] [place] [address] 06/23/2024 Ashlee Vegabriela Presence of cardiac pacemaker Z95.0 ; Chronic heart failure with preserved ejection fraction (HFpEF) I50.32 ; Atherosclerosis of aorta I70.0 ; Occlusion and stenosis of unspecified carotid artery I65.29 ; Sick sinus syndrome I49.5 ; 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 06/23/2024 Chronic heart failure with preserved ejection fraction (HFpEF) (ICD-10 - I50.32) Check vitals and dry weight , monitor fluid and salt intake , follow therapeutic life style changes, modify risk factors. 06/23/2024 Atherosclerosis of aorta (ICD-10 - I70.0) Continue Aspirin and statin, lifestyle modification, risk factor modification 06/23/2024 Occlusion and stenosis of unspecified carotid artery (ICD-10 - I65.29) counselled on Aspirin and statin, lifestyle modification, risk factor modification 06/23/2024 Sick sinus syndrome (ICD-10 - I49.5) Patient advised to be compliant with low fat heart healthy diet, exercise, and monitor with regular pacer check. advised adequate blood pressure control and heart rate. 06/23/2024 Other thrombophilia (ICD-10 - D68.69) Increase chances of ecchymosis, bleeding with trivial trauma and necessary precaution explained . 06/23/2024 PAD (peripheral artery disease) (ICD-10 - I73.9) Patient educated on lifestyle modification including daily low impact exercise/walk, aspirin and statin importance in atherosclerotic disease explained, also association with cardiovascular as well as cerebrovascular disease explained. 06/23/2024 Paroxysmal atrial fibrillation (ICD-10 - I48.0) Pt was recommended to comply with the treatment, including OAC/NOAC follow diet and excercise , take injury precautions. 06/23/2024 Simple chronic bronchitis (ICD-10 - J41.0) RECOMMENDATIONS include adequate nutrition, up to date with vaccination, monitor with serial PFTs. Avoid environmental conditions like change in heat cold, altitude, or exposure to dust smoke, and air pollution. Monitor for worsening clinical symptoms including cough, wheezing, increased use of short-acting beta-agonist. Avoidance of heavy exertion, identification and avoidance of triggers, avoidance of cigarette smoke, breathing exercises 06/23/2024 Other HPI ,exam assessment, plan and flight test data acquisition technician performed by Ashlee Argueta APRN - - The visit was conducted with the use of interactive ( video /audio) telecommunication that permitted real time communication between ( patient) and Myself. (Patient) verbally consented to participation and recieved service being present at Home. Plan Of Treatment Treatment Notes Assessment Notes Presence of cardiac pacemaker Recommend continued surveillance with specialists. Chronic heart failure with p reserved ejection fraction (HFpEF) Check vitals and dry weight , monitor fl uid and salt intake , follow therapeutic life style changes, modify risk factors. Atherosclerosis of aorta Continue Aspiri n and statin, lifestyle modification, risk factor modification Occlusion and stenosis of un specified carotid artery counselled on Aspirin and statin, lifest yle modification, risk factor modification Sick sinus syndrome Patient advised to b e compliant with low fat heart healthy diet, exercise, and monitor with regular pacer check. advised adequate blood pressure control and heart rate. Other thrombophilia Increase chances of ecchymosis, bleeding with trivial trauma and necessary precaution explained . PAD (peripheral artery disease) Patient educated on lifestyle modification including daily low impact exercise/walk, aspirin and statin importance in atherosclerotic disease explained, also association with cardiovascular as well as cerebrovascular disease explained. Paroxysmal atrial fibrillation Pt was re commended to comply with the treatment, including OAC/NOAC follow diet and excercise , take injury precautions. Simple chronic bronchitis RECOMMENDATION S include adequate nutrition, up to date with vaccination, monitor with serial PFTs. Avoid environmental conditions like change in heat cold, altitude, or exposure to dust smoke, and air pollution. Monitor for worsening clinical symptoms including cough, wheezing, increased use of short-acting beta-agonist. Avoidance of heavy exertion, identification and avoidance of triggers, avoidance of cigarette smoke, breathing exercises Other HPI ,exam assessment, plan and flight test data acquisition technician performed by Ashlee Argueta APRN - - The visit was conducted with the use of interactive ( video /audio) telecommunication that permitted real time communication between ( patient) and Myself. (Patient) verbally consented to participation and recieved service being present at Home. Pending Test Test Name Order Date PAD- Peripheral Arterial Doppler 025 Echocardiogram, transthoracic 06/23/2024 Next Appt Details Provider Name:MAX LOPEZ, 01/18/2025 08:30:00 AM, [address] [place] [address], [phone], Provider Name:Kolton Vazquez, 04:40:00 PM, [address] [place] [address], [phone], Provider Name:VanePhani Lizeth lee ann, 05/29/2025 02:00:00 PM, [address] [place] [address], [phone], History and Physical Notes * Examination Category Sub-Category Detail Notes Category Not es General Examination GENERAL APPEARANCE: pleasant, in n o acute distress NEUROLOGIC: awake, alert, kennedy ative Progress Notes * IDA MOTLEY GDOB: [birth year] (74 yo F)Acc No.[id number]:06/23/2024 Patient: IDA TORRES Provider: Salma Argueta :1950 A ge:74 Y S ex:Female Date:06/23/2024 Address:[address] [place] [address] , [address] Pcp:MAX LOPEZ Structured Data:Seasonal : Y es; How did you hear about our practice? : Established patient Subjective: * Chief Complaints: * 1 MTH F/UP ON LABSPt was in hosp * Medical History: Bariatric surgery status (resolved 10/15/2022) ASVD aorta chest x-ray 03/23/2023 PFT 03/18/2023 FEV1 111, FEV1/FVC ratio 97, FEF 25 and 75 is 111, reversibility 16% FVC, FEV1 is 17% reversible, FEF reversibility 22%, DLCO 85 CHF stage I diastolic dysfunction EF is 60-65% 2D echo mild TR PAD ultrasound 03/26/2021 NEGRO right 1.0 left 1.0 ASVD with slight abnormal waveform PFT 03/18/2023 FEV1 111, FEV1/FVC ratio 97, FEF 25 to 75% is 111, reversibility 17% FEV1 and 16% FVC, DLCO 85% CTA chest 03/30/2023 ASVD aorta otherwise unremarkable DEXA scan 03/29/2023 T-score hip -1.5 FRAX score hip 3.0 and major fracture 13%, spine -0.6 L1 osteopenia CHF 2D echo stage I diastolic dysfunction 03/13/2023 EF is low normal 50-55% Hypertensive cardiomegaly moderately dilated left ventricle 2D echo 03/13/2023 Acquired absence of cervix with remaining uterus (resolved 02/04/2016) 2023.01.15 CXR ASVDa. [id number] 7 Alcohol use -patient has 3 or more drinks of wine almost on a daily basis * Surgical History: Arthroscopy: Left knee 2003 Breast Biopsy Hysterectomy Partial (ovaries remaining) 1986 Liyah Fundoplasty 1996 Pacemaker Implantation ([facility])- Gastroplasty 1986 Eusebia en Y gastric bypass Bilateral upper lid lift 05/10/2021 Total Knee Replacement-right 05/27/2022 knee revision 04/21/23 * Hospitalization/Major Diagno stic Procedure: Hysterectomy 1986 Right knee replacement 07/21/2017 pt passed out 10/09/20-10/11/20 melanoma removed from arm 02/17/2022 DX fall @ [facility] ER VISIT 12/30/2023 * Family History: Positive for Coronary Artery Disease ( father; mother ). Positive for Breast Cancer ( mat. GM ) and Cervical Cancer ( sister ). Negative for Colon Cancer or Ovarian Cancer. * Social History: [facility] Social History: T obacco T obacco use assessed: N ever used (1036F) Alcohol (AUDIT-C) P atient d oes drink alcohol. Screening performed for alcohol misuse using AUDIT-C (G0442) H ow often do you have a drink containing alcohol? ( +4) 4 or more times a week H ow many drinks containing alcohol do you have on a typical day?? ( +0) 1 or 2 drinks H ow often do you have 6 or more drinks in one sitting? ( +0) Never A ERIN-C Score: 4 S core interpretation for: f emale o f 3 or more: Positive screening P ositive AUDIT-C screening. c ontinue to SMAST screening 1 . Do you feel that you are a normal drinker??Yes 2 . Does your , , a parent, or other near relative ever worry or complain about your drinking? N o 3 . Do you ever feel guilty about your drinking? N o 4 . Do friends or relatives think you are a normal drinker? Y es 5 . Are you able to stop drinking when you want to? Y es 6 . Have you ever attended a meeting of Alcoholics Anonymous (AA)? N o 7 . Has your drinking ever created problems between you and your , , a parent or other near relative? N o 8 . Have you ever gotten into trouble at work because of your drinking? N o 9 . Have you ever neglected your obligations, your family, or your work for two or more days in a row because you were drinking? N o 1 0. Have you ever gone to anyone for help about your drinking? n o 1 1. Have you ever been in a hospital because of drinking? N o 1 2. Have you ever been arrested for drunken driving, driving while intoxicated, or driving under the influence of alcoholic beverages? N o 1 3. Have you ever been arrested, even for a few hours, because of other drunken behaviors? N o S MAST Total score (each yes is 1 point): 3 S MAST score interpretation: 3 : Borderline alcohol problem reported Intimate Partner Violence (HARK) W ithin the last year, have you been humiliated or emotionally abused in other ways by your partner or your ex-partner? N o (0) W ithin the last year, have you been afraid of your partner or ex-partner? N o (0) W ithin the last year, have you been raped or forced to have any kind of sexual activity by your partner or ex-partner? N o (0) W ithin the last year, have you been kicked, hit, slapped or otherwise physically hurt by your partner or ex-partner? N o (0) T otal HARK score: 0 Anxiety (DISHA-2) 1 . Feeling nervous, anxious, or on edge 0 - Not at all 2 . Not being able to stop or control worrying?0- Not at all G AD-2 Score: 0 Household & Education L rosalba alone? N o H ighest level of school completed or highest degree received? 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 Y es D ue to: A ge 63 Barriers to Care H ow hard is it for you to pay for basics (food, housing, medical care, heating)? N ot very hard D o you have any problems getting care due to transportation? N o D o you have any problems getting care due to financial reasons? N o D o you have any problems getting care due to physical limitations? N o D o you have any problems getting care due language barriers? N o D o you have any problems getting care due to lack of a support system? N o D o you have any problems getting care due to other ... n o Caffeine intake D o you drink caffeine? Y es W hat do you drink? S tesha H ow many servings per day: 2 Substance abuse (CAGE, etc) D o you smoke marijuana? N o C AGE- Do you use any recreational drugs? N o W hat drugs have you experimented with, used in the past or are currently using? N one H ave you ever gone to rehab? N o H ave you ever been hospitalized for an overdose? N o Social Connection and Isolation Survey (NHANES) W hat is your current marital status? M arried I n a week, # of times you talk on the phone w/family, friends, neighbors? 3 or more interactions per week H ow often do you get together with friends or relatives? 3 or more interactions per week H ow often do you attend hindu or islam services? M ore than 4 times per year D o you belong to any clubs or organizations??Yes T otal Social Isolation Score (NHANES): 0 Specialist ([place] [facility] [facility]) D ermatologist S [place] * Medications: T akingCyanocobalamin 1000 MCG/ML Solution 1,000mcg / 1cc q month Injection once a month Keppra 500 MG Tablet 1 tablet Orally every 12 hrs Sucralfate 1 GM Tablet 1 tablet on an empty stomach Oral Twice a day Omeprazole 40 MG Capsule Delayed Release 1 capsule Orally twice a day Albuterol Sulfate 1.25 MG/3ML Nebulization Solution 3 ml as needed Inhalation Three times a day dx j44.9 Albuterol Sulfate HFA 108 (90 Base) MCG/ACT Aerosol Solution 1 puff as needed Inhalation every 4-6 hours Trelegy Ellipta 200-62.5-25 MCG/ACT Aerosol Powder Breath Activated Inhale 1 puff by mouth once daily. Rinse mouth after each use Eliquis 5 MG Tablet Take 1 tablet Orally Twice a day Effexor XR 75 MG Capsule Extended Release 24 Hour 1 capsule with food Oral Once a day Montelukast Sodium 10 MG Tablet Take 1 tablet by mouth once daily Metoprolol Tartrate 25 MG Tablet 1 tablet with food Oral every evening Atorvastatin Calcium 40 MG Tablet 1 tablet Orally every night Ranolazine ER 1000 MG Tablet Extended Release 12 Hour 1 tablet Oral Twice a day Gabapentin 300 MG Capsule TAKE 1 CAPSULE EVERY MORNING AND TAKE 3 CAPSULES AT BEDTIME Midodrine HCl 5 MG Tablet 1 tablet at 7 am 1 tablet at 11 am 1 tablet at 4 pm Orally As neededALPRAZolam 0.25 MG Tablet 1 tablet Orally Twice a day As neededtraMADol HCl 50 MG Tablet 1 tablet as needed ACUTE PAIN EXCEPTION Orally Two times a day , Notes to Pharmacist: PRNFlonase Allergy Relief 50 MCG/ACT Suspension 1 spray in each nostril Nasally Twice a day Vitamin B-6 100 MG Tablet 1 tablet Orally Once a day Vitamin B-1 100 MG Tablet 1 tablet Orally Once a day Taking Cyanocobalamin 1000 MCG/ML Solution 1,000mcg / 1cc q month Injection once a month Taking Keppra 500 MG Tablet 1 tablet Orally every 12 hrs Taking Sucralfate 1 GM Tablet 1 tablet on an empty stomach Oral Twice a day Taking Omeprazole 40 MG Capsule Delayed Release 1 capsule Orally twice a day Taking Albuterol Sulfate 1.25 MG/3ML Nebulization Solution 3 ml as needed Inhalation Three times a day dx j44.9 Taking Albuterol Sulfate HFA 108 (90 Base) MCG/ACT Aerosol Solution 1 puff as needed Inhalation every 4-6 hours Taking Trelegy Ellipta 200-62.5-25 MCG/ACT Aerosol Powder Breath Activated Inhale 1 puff by mouth once daily. Rinse mouth after each use Taking Eliquis 5 MG Tablet Take 1 tablet Orally Twice a day Taking Effexor XR 75 MG Capsule Extended Release 24 Hour 1 capsule with food Oral Once a day Taking Montelukast Sodium 10 MG Tablet Take 1 tablet by mouth once daily Taking Metoprolol Tartrate 25 MG Tablet 1 tablet with food Oral every evening Taking Atorvastatin Calcium 40 MG Tablet 1 tablet Orally every night Taking Ranolazine ER 1000 MG Tablet Extended Release 12 Hour 1 tablet Oral Twice a day Taking Gabapentin 300 MG Capsule TAKE 1 CAPSULE EVERY MORNING AND TAKE 3 CAPSULES AT BEDTIME Taking Midodrine HCl 5 MG Tablet 1 tablet at 7 am 1 tablet at 11 am 1 tablet at 4 pm Orally As neededTaking ALPRAZolam 0.25 MG Tablet 1 tablet Orally Twice a day As neededTaking traMADol HCl 50 MG Tablet 1 tablet as needed ACUTE PAIN EXCEPTION Orally Two times a day , Notes to Pharmacist: PRNTaking Flonase Allergy Relief 50 MCG/ACT Suspension 1 spray in each nostril Nasally Twice a day Taking Vitamin B-6 100 MG Tablet 1 tablet Orally Once a day Taking Vitamin B-1 100 MG Tablet 1 tablet Orally Once a day Not- TakingARIPiprazole 20 MG Tablet 1 tablet Orally Once a day Syringes with Beaver 1 cc syringes with 25 gauge needles for B12 injections monthly Not-Taking ARIPiprazole 20 MG Tablet 1 tablet Orally Once a day Not-Taking Syringes with Beaver 1 cc syringes with 25 gauge needles for B12 injections monthly * Allergies: A spirin (ASA): Gastric ulcer - AllergyCodeine: Allergy - Onset Date [id number]: Allergy - Onset Date [id number] HCl: headache - Side Effects - Onset Date 01/23/2021 Objective: * Vitals: M A:patient, Wt:142lbs, Ht: 61 in, BMI: 26.83 Index, Ht-cm: 154.94 cm, Wt-k.41 kg. * Examination: G eneral Examination: GENERAL APPEARANCE: p leasant, in no acute distress. NEUROLOGIC: a wake, alert, cooperative. ? Assessment: * Assessment: 1. C hronic heart failure with preserved ejection fraction (HFpEF) - I50.32 (Primary) ? 2 . P resence of cardiac pacemaker - Z95.0 3 . A therosclerosis of aorta - I70.0 4 . O cclusion and stenosis of unspecified carotid artery - I65.29 5. S ick sinus syndrome - I49.5 6 . O ther thrombophilia - D68.69 7 . P AD (peripheral artery disease) - I73.9 8 . P aroxysmal atrial fibrillation - I48.0 9 . S imple chronic bronchitis - J41.0 ? Plan: * Treatment: Notes: Check vitals and dry weight , monitor fluid and salt intake , follow therapeutic life style changes, modify risk factors.??2.?Presence of cardiac pacemaker? Notes: Recommend continued surveillance with specialists.??3.?Atherosclerosis of aorta? Notes: Continue Aspirin and statin, lifestyle modification, risk factor modification??4.?Occlusion and stenosis of unspecified carotid artery? Notes: counselled on Aspirin and statin, lifestyle modification, risk factor modification? 5.?Sick sinus syndrome? Notes: Patient advised to be compliant with low fat heart healthy diet, exercise, and monitor with regular pacer check. advised adequate blood pressure control and heart rate.??6.?Other thrombophilia? Notes: Increase chances of ecchymosis, bleeding with trivial trauma and necessary precaution explained .??7.?PAD (peripheral artery disease)?Imaging: PAD- Peripheral Arterial Doppler* Notes: Patient educated on lifestyle modification including daily low impact exercise/walk, aspirinand statin importance in atherosclerotic disease explained, also association with cardiovascular aswell as cerebrovascular disease explained.??8.?Paroxysmal atrial fibrillation? Notes: Pt was recommended to comply with the treatment, including OAC/NOAC follow diet and excercise , take injury precautions.??9.?Simple chronic bronchitis? Notes: RECOMMENDATIONS include adequate nutrition, up to date with vaccination, monitor with serialPFTs. Avoid environmental conditions like change in heat cold, altitude, or exposure to dust smoke,and air pollution. Monitor for worsening clinical symptoms including cough, wheezing, increased useof short- acting beta-agonist. Avoidance of heavy exertion, identification and avoidance of triggers, avoidance of cigarette smoke, breathing exercises??10.?Others? Notes: HPI ,exam assessment, plan and flight test data acquisition technician performed by Ashlee Argueta APRN - - ?The visit was conducted with the use of interactive ( video /audio) telecommunication that permitted real time communication between ( patient) and Myself. (Patient) verbally consented to participation and recieved service being present at Home.?? Billing Information: * Procedure Codes: * Electronic signature of Ted Argueta APRN on 11/14/2024 at 03:16 PM EDT Sign off status: Pending * Provider: Salma Argueta Date: 0 06/23/2024 Generated for Antonio Romo/Solis on: 0 11/14/2024 03:16 PM EDT
--- OUTSIDE RECORDS SUMMARY | 2024-07-04 10:15 | XMS_ITS ---
Author Organization [facility] [place] Address [address] [address] [address] [place] [address] Care Team Providers Care Liturgical Music Director Name Role Phone Fran Hamilton Primary Care Provider Adi Hayes Unavailable [phone] Faby Bonilla Unavailable [phone] REASON FOR VISIT LTHA, AVENIR Encounters Encounter Location Date Provider Diagnosis [facility] [place] [address] [address] 07/04/2024 Faby Bonilla Plan Of Treatment Next Appt Details Provider Name:Faby Bonilla, 01/18/2025 10:00:00 AM, [address] [address], [place], [address], Progress Notes * Dagmar FLORES GDOB: [birth year] (74 yo F)Acc No.[id number]:07/04/2024 Progress Note Patient: Dagmar TORRES Provider: Scott Bonilla APRN, FNP-C :1950 A ge:74 Y S ex:Female Date:07/04/2024 Address:[address] , [address], [place], [id number] Pcp:Fran Hamilton Subjective: * Chief Complaints: * 1 . LTHA, AVENIR. * Medical History: Objective: * Vitals: Assessment: Plan: * Treatment: * Billing Information: * Visit Code: * Procedure Codes: * Electronic signature of NAV Lux on 11/14/2024 at 03:12 PM EDT Sign off status: Pending * Provider: Scott Bonilla APRN, FNP-C Date: 0 07/04/2024 Generated for Antonio maynard/Akira/Solis on: 0 11/14/2024 03:12 PM EDT
--- OUTSIDE RECORDS SUMMARY | 2024-07-22 05:45 | XMS_ITS ---
Author Organization [facility] [place] Address [address] [facility] [address] [place] [address] Care Team Providers Care Methods Time Analyst Name Role Phone Fran Hamilton Primary Care Provider Adi Hayes [phone] REASON FOR VISIT LT Hip F/U Encounters Encounter Location Date Provider Diagnosis [facility] [place] [address] [address] 07/22/2024 Adi Sanabria Plan Of Treatment Next Appt Details Provider Name:Faby Bonilla, 01/18/2025 10:00:00 AM, [address] [address], [place], [address], Progress Notes * Dagmar FLORES GDOB: [birth year] (74 yo F)Acc No.[id number]:07/22/2024 Progress Notes Patient: Dagmar TORRES Provider: Aaron Sanabria Jr., MD :1950 A ge:74 Y S ex:Female Date:07/22/2024 Address:[address] [place] [address] [address] , [address], [id number] Pcp:Fran Hamilton Subjective: * Chief Complaints: * 1 . LT Hip F/U. * Medical History: Objective: * Vitals: Assessment: Plan: * Treatment: * Billing Information: * Visit Code: * Procedure Codes: * Electronic signature of Adi Sanabria MD on 11/14/2024 at 03:12 PM EDT Sign off status: Pending * Provider: Aaron Sanabria Jr., MD Date: 0 07/22/2024 Generated for Antonio maynard/Akira/Solis on: 0 11/14/2024 03:12 PM EDT
--- OUTSIDE RECORDS SUMMARY | 2024-08-25 07:00 | XMS_ITS ---
[facility] Organization [facility] Address [address] [place] [phone] Care Team Providers Care Film Or Videotape Editor Name Role Phone Arjun Barrett Primary Care Provider Allergies Allergen (clinical drug ingredient) Drug/Non Drug Allergy documented on EMR Reaction Allergy Type Onset Date Status hydromorphone Dilaudid Unknown Drug Allergy Act lico codeine Codeine Unknown Drug Allergy Active Results Component Value Reference Range Notes H-CBC Reviewed date:08/31/2024 04:54:40 PM Interpretation:HGB 11.6 Performing Lab: Notes/Report: WBC 4.7 4.8-10.8 K/mm3 RBC 4.24 4.20-5.40 M/mm3 HGB 11.6 12.2-16.2 g/dL HCT 38.0 37.0-47.0 % MCV 89.6 81-99 fl MCH 27.4 27.0-31.2 pg MCHC 30.5 31.8-35.4 g/dL RDW-SD 47.6 RDW 14.6 11.5-17.5 % PLT 242 142-424 K/mm3 MPV 9.5 7.4-10.4 fl NE% 50.3 37.0-80.0 % LY% 34.7 10-50 % MO% 10.9 1.7-9.3 % EO% 3.0 0.1-12.0 % BA% 0.9 0.1-2.0 % NRBC% 0 IG% 0.2 NE# 2.4 1.8-7.8 K/mm3 LY# 1.6 0.7-4.5 K/mm3 MO# 0.5 0.1-1.0 K/mm3 EO# 0.1 0.0-0.4 Kmm3 BA# 0.0 0-0.2 K/mm3 NRBC# 0 IG# 0.01 H-Lipid Panel Reviewed date:08/31/2024 04:54:40 PM Interpretation:LDL 69 Performing Lab: Notes/Report: Patient Fasting? Y TRIG 98 30-150 mg/dl CHOL 203 140-200 mg/dl DLDL 69.28 100-129 mg/dL VLDL 20 0-40 mg/dL HDL 108 40-60 mg/dl CHLHDL 1.9 1-3.5 H-CMP Reviewed date:08/31/2024 04:54:40 PM Interpretation:normal Performing Lab: Notes/Report: NA 139 136-145 mmol/L K 4.4 3.5-5.1 mmoL/L CL 109 98-107 mmol/L CO2 28 22.0-30.0 mmol/L GAP 6.4 5-15 mEq/L BUN 10 7-17 mg/dl CREATT 0.60 0.52-1.04 mg/dl GFRAA 118 >60 ML/MIN EGFR 97 >60 ml/min GLU 94 74-100 mg/dl CA 8.8 8.4-10.2 mg/dl BILIT 0.5 0.2-1.3 mg/dl AST 32 14-36 U/L ALT 14 12-78 U/L TP 6.2 6.3-8.2 g/dl ALB 3.9 3.5-5.0 g/dl GLOB 2.3 1.3-3.2 g/dL AGRATIO 1.7 1.1-1.8 ALP 116 38-126 U/L H-Iron Reviewed date:08/31/2024 04:54:40 PM Interpretation:47 Performing Lab: Notes/Report: FE 47 37-170 ug/dL Bone density Reviewed date:09/13/2024 03:47:46 PM Interpretation: Performing Lab: Notes/Report: REASON FOR VISIT check up and Annual Wellness Visit Medications Medication SIG (Take, Route, Frequency, Duration) Notes Start Date End Date Status traMADol HCl 50 MG 1 tab(s) orally four times a day as needed 07/23/2022 Active Gabapentin 300 MG 1 cap(s) orally twice a day 02/12/2022 Active Ipratropium-Albuterol 3/ 0.5/ 3 ML 3 ML TID *Please review and pick correct strength-formulati on from [employer]izard options. If intended option is not shown, discontinue and re-order from Quick Search* 07/31/2021 Active NEBULIZER SET UP FOR ADULT DIRECTED *Please review for potential replacement for e-prescription and drug interaction check* 07/31/2021 Active Vitamin D3 50 MCG (2000 UT) 1 tab(s) orally once a day; Duration: 90 days Active Latisse 0.03 % 1 diana applied topically once a day (at bedtime) 07/19/2020 Active Trelegy Ellipta 200-62.5-25 MCG/ACT 1 puff Inhalation Once a day Active Albuterol Sulfate 0.83MG/ML (2.5MG/3ML) 1 VIAL DIRECTED Q 4-6 HRS PRN PER NEBULIZER; Duration: 90 DAYS *Please review and pick correct strength-formulati on from [employer]Wizard options. If intended option is not shown, discontinue and re-order from Quick Search* Active ALBUTEROL HFA INHALER 200 METERED DOSES/ 8.5GM 2 INHALATIONS QID PRN *Please review for potential replacement for e-prescription and drug interaction check* Active Vitamin B-12 1000 MCG 1 tablet Orally Once a day; Duration: 30 day(s) Active Vitamin B-1 250 MG 2 tablet Orally twice a day Active Atorvastatin Calcium 40 MG 1 tablet Orally Once a day Active Venlafaxine HCl 37.5 MG TAKE 1 TABLET ONCE DAILY WITH FOOD Active Eliquis 5 MG 1 tablet Orally twice daily; Duration: 90 days Active Montelukast Sodium 10 MG TAKE 1 TABLET ONCE DAILY; Duration: 90 days Active Metoprolol Tartrate 25 MG 1 tablet with food Orally once a day Active Ranolazine ER 500 MG 1 tablet Orally Twice a day Active Midodrine HCl 5 MG 1 tablet Orally Twice a day Active Omeprazole 40 MG take 1 capsule Orally Once a day Active Raloxifene HCl 60 MG TAKE 1 TABLET ONCE DAILY; Duration: 90 days Active Albuterol Sulfate (2.5 MG/3ML) 0.083% 3 ml Inhalation every 6 hrs, prn Active Zolpidem Tartrate 10 MG 1 tab(s) orally once a day (at bedtime); Duration: 30 day(s) 08/04/2023 Active Lidoderm 5 % 1 patch remove after 12 hours Externally Once a day; Duration: 30 days 12/14/2023 Active levETIRAcetam 500 MG 1 tab(s) orally 2 times a day; Duration: 90 days Active Nebulizer/Tubing/Mout hpiece - as directed 07/30/2023 Active Carafate 1 GM 1 tab(s) orally 4 times a day (before meals and at bedtime) 07/20/2020 Active Problems Problem Type SNOMED Code ICD Code Onset Dates Problem Status W/U Status Risk Notes Problem Anemia (820173330) Anemia (D64.9) Active confirmed Problem Diabetic peripheral neuropathy associated with type 2 diabetes mellitus (1031066464854) Type 2 diabetes mellitus with diabetic neuropathy, unspecified whether nursing home insulin use (E11.40) Active confirmed Vital Signs Blood pressure systolic 110 mm Hg 08/26/19 25 Blood pressure diastolic 70 mm Hg 025 Heart Rate 68 /min 08/25/2024 Height 60 in 08/25/2024 Weight 140.6 lbs 08/25/2024 BMI 27.46 kg/m2 08/25/2024 Encounters Encounter Location Date Provider Diagnosis [facility] [address] [facility] [address] [place] [address], [place] [id number] 08/25/2024 Arjun Barrett Adult general medica l examination Z00.00 ; Dyslipidemia E78.5 ; Anemia D64.9 ; Osteopenia M85.80 ; Primary osteoarthritis involving multiple joints M15.0 ; Depression with anxiety F41.8 ; Chronic atrial fibrillation I48.20 ; Asthma J45.909 ; Insomnia G47.00 ; Seizure disorder G40.909 ; Type 2 diabetes mellitus with diabetic neuropathy, unspecified whether nursing home insulin use E11.40 ; BMI 27.0-27.9,adult Z68.27 ; Pacemaker Z95.0 and Gastroesophageal reflux disease, esophagitis presence not specified K21.9 Assessments Encounter Date Diagnosis (ICD Code) Assessment Notes Treatment Notes Treatment Clinical Notes Section Notes 08/25/2024 Adult general medical examination (ICD-10 - Z00.00) Patient instructed to return to office Annually for Annual Wellness Visits to include annual screenings of Pain assessment, Functional Ability assessment, Cognitive Ability assessment, Fall Risk assessment, Depression screening and Bladder control screening. 08/25/2024 Dyslipidemia (ICD-10 - E78.5) 08/25/2024 Anemia (ICD-10 - D64.9) 08/25/2024 Osteopenia (ICD-10 - M85.80) 08/25/2024 Primary osteoarthritis involving multiple joints (ICD-10 - M15.0) 08/25/2024 Depression with anxiety (ICD-10 - F41.8) 08/25/2024 Chronic atrial fibrillation (ICD-10 - I48.20) 08/25/2024 Asthma (ICD-10 - J45.909) 08/25/2024 Insomnia (ICD-10 - G47.00) 08/25/2024 Seizure disorder (ICD-10 - G40.909) 08/25/2024 Type 2 diabetes mellitus with diabetic neuropathy, unspecified whether terminologist insulin use (ICD-10 - E11.40) 08/25/2024 BMI 27.0-27.9,adult (ICD-10 - Z68.27) 08/25/2024 Pacemaker (ICD-10 - Z95.0) 08/25/2024 Gastroesophageal reflux disease, esophagitis presence not specified (ICD-10 - K21.9) Plan Of Treatment Medication Medication Name Sig Start Date Stop Date Notes Atorvastatin Calcium 40 MG 1 tablet Orally Once a day Venlafaxine HCl 37.5 MG TAKE 1 TABLET ON CE DAILY WITH FOOD Eliquis 5 MG 1 tablet Orally twic e daily; Duration: 90 days Montelukast Sodium 10 MG TAKE 1 TABLET O NCE DAILY; Duration: 90 days Metoprolol Tartrate 25 MG 1 tablet with food Orally once a day Ranolazine ER 500 MG 1 tablet Orally Twice a day Midodrine HCl 5 MG 1 tablet Orally Twice a day Omeprazole 40 MG take 1 capsule Orall y Once a day Raloxifene HCl 60 MG TAKE 1 TABLET ONCE DAILY; Duration: 90 days Treatment Notes Assessment Notes Adult general medical examination Patien t instructed to return to office Annually for Annual Wellness Visits to include annual screenings of Pain assessment, Functional Ability assessment, Cognitive Ability assessment, Fall Risk assessment, Depression screening and Bladder control screening. Next Appt Details Follow Up: 6 Months, Reason: Provider Name:Dai emery, 11/14/2024 03:30:00 PM, [address], [address], [place], [id number], Progress Notes * Dagmar FLORESaDOB: 1950 (74 yo F)Acc No.[id number]:08/25/2024 Annual Wellness Visit Patient: Dagmar TORRES Provider: Arjun Barrett M.D. :1950 A ge:74 Y S ex:Female Date:08/25/2024 Address:[address], [id number] Subjective: * Chief Complaints: * 1 . check up and Annual Wellness Visit. * HPI: H PI: Patient is here today for a scheduled check up and a Medicare Annual Wellness Visit and fasting labs. She has just returned from wintering in [place]. While in [place] she underwent left total hip and left total knee joint replacements and is slowly recuperating.. * ROS: O PTHALMOLOGY: Negative for d enies vision issues. * Medical History: A sthma, Pneumonia , [...] Port Catheter Removal 11/2021, Total Knee Replacement 05/2022, Colonoscopy/ diverticulosis/ [place] 2023, Left total knee/ [place] 2024, Left total hip/ [place] 2024. * Hospitalization/Major Diagno stic Procedure: S out [facility] ER-seizure, passed out 03/2019, [facility] ER-syncope 10/24/2019, [facility] ER - syncope 10/28/2019, [facility] ER - Fall- Broken Arm 12/30/2023. * [...] every other night. * Medications: T aking Metoprolol Tartrate 25 MG Tablet 1 tablet with food Orally once a day , Taking Vitamin B-1 250 [...] review and pick correct strength- formulation from SmartZip [employer]ytic[employer]pan options. If intended option is not shown, [...] *Please review and pick correct strength-formulation from SmartZip Anal[employer]sspan options. If intended option is not shown, [...] Inhalation every 6 hrs, prn , Taking levETIRAcetam 500 MG Tablet 1 tab(s) orally 2 times a day , Taking Lidoderm 5 % Patch 1 patch remove after 12 hours Externally Once a day , Taking Midodrine HCl 5 MG Tablet 1 tablet Orally Twice a day , Taking Ranolazine ER 500 MG Tablet Extended Release 12 Hour 1 tablet Orally Twice a day , Taking Raloxifene HCl 60 MG Tablet TAKE 1 TABLET ONCE DAILY , Taking Omeprazole 40 MG Capsule Delayed Release take 1 capsule Orally Once a day , Taking Montelukast Sodium 10 MG Tablet TAKE 1 TABLET ONCE DAILY , Taking Eliquis 5 MG Tablet 1 tablet Orally twice daily , Taking Venlafaxine HCl 37.5 MG Tablet TAKE 1 TABLET ONCE DAILY WITH FOOD , Taking Atorvastatin Calcium 40 MG Tablet 1 tablet Orally Once a day , Medication List reviewed and reconciled with the patient * Allergies: Olga Juarez. Objective: * Vitals: W t: 140.6, Temp: 97.6, BP: 110/70, HR: 68, O2 Sat: 97% on RA, Nurse: [facility], Ht: 60, BMI:27.46. * Examination: G eneral Examination: General Appearance: N AD. N all: s upple, no lymphadenopathy, no carotid bruits. H eart: R SR. L ungs: c lear to auscultation. E xtremities: t race ankle edema. * Physical Examination: G ENERAL: Pain Assessment: P ain level: 3, on a scale of 0-10 (with 10 being extreme pain). F unctional Status Assessment: P atient response to question of how often physical health interferes with daily activities: Frequently. Able to perform ADLs-including meal preparation, grocery shopping, housework, laundry, taking medications or handling finances. Cognitive Status: alert and oriented. Ambulation Status: Fully ambulatory. F all Risk Assessment: I ndependant in ambulation, adequate lighting in home. Patient has fallen or had trouble walking within the past 12 months. D epression Screening: D enies depressed mood or anxiety. Describes emotional health as: positive. B ladder Control Screening: s mall problems.? Assessment: * Assessment: 1. A dult general medical examination - Z00.00 (Primary) 2 . D yslipidemia - E78.5 3 . A nemia - D64.9 4 . O steopenia - M85.80 ? 5 . P rimary osteoarthritis involving multiple joints - M15.0 6 . D epression with anxiety - F41.8 7 . C hronic atrial fibrillation - I48.20 ? 8 . A sthma - J45.909 9 . I nsomnia - G47.00 1 0.?Seizure disorder - G40.909 1 1. T ype 2 diabetes mellitus with diabetic neuropathy, unspecified whether nursing home insulin use - E11.40 1 2. B WA 27.0-27.9,adult - Z68.27 1 3. P acemaker - Z95.0 1 4. G astroesophageal reflux disease, esophagitis presence not specified - K21.9 Plan: * Treatment: 2. D yslipidemia Refill Atorvastatin Calcium Tablet, 40 MG, 1 tablet, Orally, Once a day, 90, Refills 1. L AB: H-Lipid Panel (Collection Date & Time - 08/25/2024 12:36 PM) L DL 69 Value Reference Range T RIG 98 30-150 - mg/dl * C HOL 203 H 140-200 - mg/dl * D LDL 69.28 L 100-129 - mg/dL * V LDL 20 0-40 - mg/dL * H DL 108 H 40-60 - mg/dl * C HLHDL 1.9 1-3.5 - * Layla Cast 08/25/2024 1 2:22:01 PM EDT >order faxed to registration Arjun Barrett 08/31/2024 04:54:17 PM EDT > See phone encounter ?LAB: H-CMP (Collection Date & Time - 08/25/2024 12:36 PM)?normal* Value Reference Range N A 139 136-145 - mmol/L * K 4.4 3.5-5.1 - mmoL/L * C L 109 H 98-107 - mmol/L * C O2 28 22.0-30.0 - mmol/L * G AP 6.4 5-15 - mEq/L * B UN 10 7-17 - mg/dl * C REATT 0.60 0.52-1.04 - mg/dl * G FRAA 118 >60 - ML/MIN * E GFR 97 >60 - ml/min * G MARGARET 94 74-100 - mg/dl * C A 8.8 8.4-10.2 - mg/dl * B ILIT 0.5 0.2-1.3 - mg/dl * A ST 32 14-36 - U/L * A LT 14 12-78 - U/L * T P 6.2 L 6.3-8.2 - g/dl * A LB 3.9 3.5-5.0 - g/dl * G LOB 2.3 1.3-3.2 - g/dL * A GRATIO 1.7 1.1-1.8 - * A LP 116 38-126 - U/L * Layla Cast 08/25/2024 1 2:21:31 PM EDT >faxed to registration Arjun Barrett 08/31/2024 04:54:17 PM EDT > See phone encounter 3.?Anemia?LAB: H-CBC (Collection Date & Time - 08/25/2024 12:36 PM)?HGB 11.6* Value Reference Range W BC 4.7 L 4.8-10.8 - K/mm3 * R BC 4.24 4.20-5.40 - M/mm3 * H GB 11.6 L 12.2-16.2 - g/dL * H CT 38.0 37.0-47.0 - % * M CV 89.6 81-99 - fl * M CH 27.4 27.0-31.2 - pg * M CHC 30.5 L 31.8-35.4 - g/dL * R DW 14.6 11.5-17.5 - % * P LT 242 142-424 - K/mm3 * M PV 9.5 7.4-10.4 - fl * N E% 50.3 37.0-80.0 - % * L Y% 34.7 10-50 - % * M O% 10.9 H 1.7-9.3 - % * E O% 3.0 0.1-12.0 - % * B A% 0.9 0.1-2.0 - % * N E# 2.4 1.8-7.8 - K/mm3 * L Y# 1.6 0.7-4.5 - K/mm3 * M O# 0.5 0.1-1.0 - K/mm3 * E O# 0.1 0.0-0.4 - Kmm3 * B A# 0.0 0-0.2 - K/mm3 * R DW-SD 47.6 - fL * N RBC% 0 - % * N RBC# 0 - 10 3/uL * I G% 0.2 - % * I G# 0.01 - 10 3uL * Layla Cast 08/25/2024 1 2:22:38 PM EDT >faxed to registration Arjun Barrett 08/31/2024 04:54:17 PM EDT > See phone encounter ?LAB: H-Iron (Collection Date & Time - 08/25/2024 12:36 PM)?47* Value Reference Range F E 47 37-170 - ug/dL * Layla Cast 08/25/2024 1 2:21:00 PM EDT >faxed to registration Arjun Barrett 08/31/2024 04:54:17 PM EDT > See phone encounter 4.?Osteopenia? Refill Raloxifene HCl Tablet, 60 MG, TAKE 1 TABLET ONCE DAILY, 90 days, 90 Tablet, Refills 1.?Imaging: Bone density (Performed Date - 09/08/2024)* Chhaya Murdock 08/29/2024 08:1 9:51 AM EDT > faxed to [facility] SchedulingAPPT 09/08/24 @9:30Neeta Aldridge 09/13/2024 03:47:39 PM EDT > see TE 5.?Depression with anxiety? Refill Venlafaxine HCl Tablet, 37.5 MG, TAKE 1 TABLET ONCE DAILY WITH FOOD, 90, Refills 1.? 6.?Chronic atrial fibrillation? Refill Eliquis Tablet, 5 MG, 1 tablet, Orally, twice daily, 90 days, 180, Refills 1.??7.?Gastroesophageal reflux disease, esophagitis presence not specified? Refill Omeprazole Capsule Delayed Release, 40 MG, take 1 capsule, Orally, Once a day, 90, Refills 1.??8.?Others? Refill Midodrine HCl Tablet, 5 MG, 1 tablet, Orally, Twice a day, 180, Refills 1;?Refill Ranolazine ER Tablet Extended Release 12 Hour, 500 MG, 1 tablet, Orally, Twice a day, 180, Refills 1; Refill Montelukast Sodium Tablet, 10 MG, TAKE 1 TABLET ONCE DAILY, 90 days, 90 Tablet, Refills 1; Refill Metoprolol Tartrate Tablet, 25 MG, 1 tablet with food, Orally, once a day, 90, Refills 1.?? * Procedure Codes: G 0439 ANNUAL WELLNESS VST; PPS SUBSQT VST, G2211 Complex e/m visit add on, 1090F PRES/ABSN URINE INCON ASSESS, 3288F FALL RISK ASSESSMENT DOCD, 1170F FXNL STATUS ASSESSED, 1159F MED LIST DOCD IN RCRD, 1003F LEVEL OF ACTIVITY ASSESS, 1036F TOBACCO NON-USER, 3017F COLORECTAL CA SCREEN DOC REV, 1125F AMNT PAIN NOTED PAIN PRSNT, G8783 BP SCR PRFRM RCMDD DEFIND SCR INTVL, G8752 MOST RECENT SYSTOLIC BP < 140MM HG, G8754 MOST RECENT DIASTOLIC BP < 90MM HG, G8420 BMI<30 AND >=22 CALC & DOCU, G8510 NEG SCR Depression PT NOT ELIG F/U/PLN DOC * Preventive Medicine: Counseling: E motional health: P atient encouraged to try connecting with family or friends to boost mood. B ladder control: M ethods of controlling or managing leakage of urine discussed. E xercise: P atient advised to start, increase or maintain level of exercise/physical activity. I njury prevention: F all prevention discussed. Discussed need for cane/walker. Potential trip hazards discussed. Immunizations: T etanus u p to date. P neumococcal r ecommended. I nfluenza u p to date. Screening / Special Tests: M ammogram R ecent history: 11/02/2023, benign. C olonoscopy R ecent history: 09/06/2018, diverticulosis, repeat 5 years, recommended. B one mineral Density R ecent history: 09/25/2020, osteopenia, recommended. * Follow Up: 6 Months * Images: Billing Information: * Visit Code: 52729 Office Visit, Est Pt., Level 3. Modifiers: 25 * Procedure Codes: G0439 ANNUAL WELLNESS VST; PPS SUBSQT VST. G2211 Complex e/m visit add on. 1090F PRES/ABSN URINE INCON ASSESS. 3288F FALL RISK ASSESSMENT DOCD. 1170F FXNL STATUS ASSESSED. 1159F MED LIST DOCD IN RCRD. 1003F LEVEL OF ACTIVITY ASSESS. 1036F TOBACCO NON-USER. 3017F COLORECTAL CA SCREEN DOC REV. 1125F AMNT PAIN NOTED PAIN PRSNT. G8783 BP SCR PRFRM RCMDD DEFIND SCR INTVL. G8752 MOST RECENT SYSTOLIC BP < 140MM HG. G8754 MOST RECENT DIASTOLIC BP < 90MM HG. G8420 BMI<30 AND >=22 CALC & DOCU. G8510 NEG SCR Depression PT NOT ELIG F/U/PLN DOC. * Electronic signature of Arjun Barrett MD on 11/14/2024 at 04:27 PM EDT Sign off status: Pending * Provider: Arjun Barrett M.D. Date: 0 08/25/2024 Generated for Antonio maynard/Akira/Mariitting on: 0 11/14/2024 04:27 PM EDT History and Physical Notes * HPI (History of Present Illness) Category Sub-Category Detail Notes Category Not es HPI [facility] and a Medicare Annual Wellness Visit and fasting labs. She has just returned from wintering in [place]. While in [place] she underwent left total hip and left total knee joint replacements and is slowly recuperating. Physical Examination Category Sub-Category Detail Notes Section Note s GENERAL Pain Assessment: Pain level: 3, on a scale of 0-10 (with 10 being extreme pain) Functional Status Assessment: Patient re sponse to question of how often physical health interferes with daily activities: Frequently. Able to perform ADLs-including meal preparation, grocery shopping, housework, laundry, taking medications or handling finances.Cognitive Status: alert and oriented.Ambulation Status: Fully ambulatory Fall Risk Assessment: Independant in amb ulation, adequate lighting in home. Patient has fallen or had trouble walking within the past 12 months Depression Screening: Denies depressed m ood or anxiety. Describes emotional health as: positive Bladder Control Screening: small problem s Examination Category Sub-Category Detail Notes Category Not es General Examination Heart: RSR Lungs: clear to auscultatio n Extremities: trace ankle edema General Appearance: NAD Neck: supple, no lymphaden opathy, no carotid bruits
--- OUTSIDE RECORDS SUMMARY | 2024-09-17 17:30 | XMS_ITS ---
Author Organization [facility] Address [address] [address] Care Team Providers Care Engineer Booster And Exhauster Name Role Phone Joy PUENTES, Fran Primary Care Provider Unavailkeiry leong Jignesh Wade Unavailable [phone] Migration, Provider Unavailable Unavailable Allergies Allergen (clinical drug ingredient) Drug/Non Drug Allergy documented on EMR Reaction Allergy Type Onset Date Status hydromorphone Dilaudid Unknown Drug Allergy Act lico codeine Codeine Unknown Drug Allergy [facility] Encounter Medications Medication SIG (Take, Route, [...] Active Encounters Encounter Location Date Provider Diagnosis [facility] [address] [address] 09/17/2024 Provider Migration Plan Of Treatment No Information Progress Notes * IDA MOTLEY GDOB: [birth year] (74 yo F)Acc No.[id number]:09/17/2024 Patient: IDA TORRES Provider: Olegario ervin Migration :1950 A ge:74 Y S ex:Female Date:09/17/2024 Address:[address] [place] [address], [facility] Pcp:Fran Hamilton MD Subjective: * Chief Complaints: [...] Electronic signature of Prov ider Migration on 11/14/2024 at 03:15 PM EDT Sign off status: Pending * Provider: Olegario ervin Migration Date: 0 09/17/2024 Generated for Antonio maynard/Akira/Mariitting on: 0 11/14/2024 03:15 PM EDT
--- OUTSIDE RECORDS SUMMARY | 2024-10-10 15:15 | XMS_ITS | Encounter Summary ---
Author Organization Healthcare Address [address] [place] [address] Care Team Providers Care Chimney Repairer Name Role Phone Charles Barrett MD Primary Care Provider +1- [phone] Encounter Details Date Type Department Care Team (Latest Contact Info) Description 10/10/2024 3:15 PM EDT - 10/10/2024 11:59 PM EDT Hospital Encounter Cardiac Imaging [address] [place] [address] Pacemaker Discharge Disposition: Home or Self Care [...] often do you attend chur ch or worship services? More than 4 times per year [...] place to sleep or slept in a detention (including now)? No 11/23/2023 Utilities Answer Date [...] Description 11/23/2024 11:40 AM EDT Office Visit [facility] [place] Greg [address] [facility] [place] [address] Indu Grimes MD [address] [place] [address] 12/08/2024 9:40 AM EDT Office Visit [facility] [place] Greg [address] [place] [address] Sylvester Farr MD [address] [place] [address] documented as of this encounter [...] duration 28 min 36 sec, on Eliquis [place] 5.3% S/p AVN ablation Elyssa Ambriz BARBY [...] documented as of this encounter Care Teams Chimney Repairer Relationship Specialty Start Date End Date Charles Barrett MD [address] [place] [address] PCP - General 09/11/21 documented as of this encounter
--- OUTSIDE RECORDS SUMMARY | 2024-11-01 07:45 | XMS_ITS ---
Author Organization [facility] Address [address] [facility] [address] [place] [phone] Care Team Providers Care Playground Director Name Role Phone Arjun Barrett Primary Care Provider Allergies Allergen (clinical drug ingredient) Drug/Non Drug Allergy documented on EMR Reaction Allergy Type Onset Date Status hydromorphone Dilaudid Unknown Drug Allergy Act lico codeine Codeine Unknown Drug Allergy Active Results Component Value Reference Range Notes P-Vitamin B12 Reviewed date:11/08/2024 08:50:00 AM Interpretation:773 Performing Lab: Notes/Report: Test performed by [employer], [employer] [address] [place] [address] , [address], [place] [address] En Gutierrez MD, Director Of Sports Performance CLIA: [id number] Vitamin B12 420 907-7544 pg/mL REASON FOR VISIT F/U fall Medications [...] review and pick correct strength-formulati on from [employer] options. If intended option is not [...] review and pick correct strength-formulati on from [employer] options. If intended option is not [...] Inhalation Once a day Active Vital Signs Blood pressure systolic 112 mm Hg 11/02/19 25 Blood pressure diastolic 76 mm Hg 025 Heart Rate 70 /min 11/01/2024 Height 60 in 11/01/2024 Weight 143.8 lbs 11/01/2024 BMI 28.08 kg/m2 11/01/2024 Encounters Encounter Location Date Provider Diagnosis [facility] [address] [facility] [address] [facility] [address] [place] [phone] 11/01/2024 Arjun Barrett Vitamin B12 deficien cy [...] Follow Up: as scheduled, [place]yenne son: Provider Name:Dai emery, 11/14/2024 03:30:00 PM, [address] [facility] 36 [facility], [address], [place], [phone], Progress Notes * TIESHADagmaraDOB: 1950 (74 yo F)Acc No.[id number]:11/01/2024 Patient: Penny TORRESalvaro Duke Provider: Arjun Barrett M.D. :1950 A ge:74 Y S ex:Female Date:11/01/2024 Address:[address] [id number] Subjective: * Chief Complaints: * 1 . [...] 2024. * Hospitalization/Major Diagno stic Procedure: S [facility] ER-seizure, passed out 03/2019, [facility] ER-syncope 10/24/2019, [facility] ER - syncope 10/28/2019, [facility] ER - Fall- Broken Arm [...] review and pick correct strength- formulation from [employer] options. If intended option is not [...] *Please review and pick correct strength-formulation from [employer] options. If intended option is not shown, [...] 73 Value Reference Range V itamin B12 321 637-4731 - pg/mL * Arjun Barrett 11/08/2024 0 8:49:54 AM EDT > See phone encounter * Follow Up: a s scheduled * Images: Billing Information: * Visit Code: 31823 Office Visit, Est Pt., Level 3. * Procedure Codes: * Electronic signature of Arjun Barrett MD on 11/14/2024 at 04:27 PM EDT Sign off status: Pending * Provider: Arjun Barrett M.D. Date: 0 11/01/2024 Generated for Antonio maynard/Faxing/eTransmitting on: 0 11/14/2024 04:27 PM EDT History [...]
--- NOTE | 2024-11-14 | XR_ITS ---
FINAL REPORT CLINICAL HISTORY: PAIN FINDINGS: AP and lateral views of the sacrum and coccyx were obtained. There is no prior exam for comparison. There is no acute fracture or other acute osseous abnormality. There is sclerosis on both sides of the left SI joint with either subchondral cysts or less likely, erosions. Sacroiliitis is a concern. 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 IMPRESSION: Degenerative changes without acute abnormality of the sacrum or coccyx. Reviewed, Interpreted and Dictated by Geovanna Garcia MD Transcribed by Echo Billingsley Authenticated and . [facility]
--- NOTE | 2024-11-14 | XR_ITS ---
FINAL REPORT CLINICAL HISTORY: PAIN, HX OF REPLACEMENT FINDINGS: AP, lateral and oblique views of the left knee were obtained. Patient is status post left knee arthroplasty. Hardware is intact. There is no acute osseous abnormality of the left knee. The joint space is preserved. There is a questionable, small joint effusion. The soft tissues are normal. IMPRESSION: No acute osseous abnormality of the left knee. Reviewed, Interpreted and Dictated by Geovanna Garcia MD Transcribed by Echo Billingsley Authenticated and [facility]
--- NOTE | 2024-11-14 | XR_ITS ---
FINAL REPORT CLINICAL HISTORY: PAIN FINDINGS: AP, lateral, and oblique views of the lumbar spine were obtained. There is no acute fracture or acute malalignment. There is mild, grade 1 anterior spondylolisthesis of L5 on S1. There is multilevel degenerative disc disease, most pronounced at L2-3. Vertebral body height is preserved. . No acute paraspinal abnormality is identified. IMPRESSION: No acute osseous abnormalities lumbar spine. Reviewed, Interpreted and Dictated by Geovanna Garcia MD Transcribed by Echo Billingsley Authenticated and [facility]
--- NOTE | 2024-11-14 | XR_ITS ---
FINAL REPORT CLINICAL HISTORY: LT HIP PAIN, HX OF REPLACEMENT FINDINGS: LEFT HIP 2 views of the left hip and AP view of the pelvis were obtained. There is no acute fracture or dislocation. There are changes of the left hip arthroplasty. Hardware appears intact. There is mild degenerative disease of the right hip. Soft tissues are unremarkable. IMPRESSION: No acute bony abnormality of the left hip. Reviewed, Interpreted and Dictated by Geovanna Garcia MD Transcribed by Echo Billingsley Authenticated and [facility]
--- OUTSIDE RECORDS SUMMARY | 2024-11-14 16:27 | XMS_ITS | Encounter Summary ---
Author Organization Healthcare Address [address] [place] [address] Care Team Providers Care Cafe Helper Name Role Phone Charles Barrett MD Primary Care Provider +1- [phone] Encounter Details Date Type Department Care Team [...] week 11/25/2023 How often do you attend [facility] or catholic services? More than 4 times per year 11/25/2023 Do you belong to any clubs o r organizations such as mandaen groups, unions, fraternal or athletic groups, or [...] place to sleep or slept in a chcf (including now)? No 11/23/2023 Utilities Answer Date [...] Description 11/23/2024 11:40 AM EDT Office Visit [facility] [address] [place] [address] Indu Grimes MD [address] [place] [phone] 12/08/2024 9:40 AM EDT Office Visit [facility] Greg [address] [facility]. [address] [place] [address] Sylvester Farr MD [address] [place] [address] documented as of this encounter Visit Diagnoses Not on filedocumented in this encounter Additional Health Concerns Assessment Noted Time A fall risk assessment has been complete d for the patient 01/07/2024 11:10 AM EDT A Body Mass Index follow-up plan has been documented for the patient 01/07/2024 11:52 AM EDT documented as of this encounter Care Teams Cafe Helper Relationship Specialty Start Date End Date Charles Barrett MD [address] [place] [address] PCP - General 09/11/21 documented as of this encounter
--- OUTSIDE RECORDS SUMMARY | 2024-11-14 16:27 | XMS_ITS | Patient Health Record ---
Author Organization [facility] Address [address] [address] Care Team Providers Care Hvac Mechanic Name Role Phone Migration, Provider Unavailable Unavailable Reason For Referral No Information Encounters Encounter Location Date Provider Diagnosis [facility] [address] [address] 03/26/2024 Provider Migration [facility] [address] [address] 03/27/2024 Provider Migration Plan Of Treatment No Information Insurance Providers Payer Name Payer Address Payer Phone Subscriber Number Group Number Insured Name Patient Relationship to Insured Coverage Start Date Coverage End Date [facility] [address] [place] [address] [id number] TIESHA IDA Self - patient is the insured 9 6 Medicare Part B [address] GINETTE Cooper [id number] TIESHAANTONIIDA Self - patient is the insured 9 6
--- OUTSIDE RECORDS SUMMARY | 2024-11-14 16:27 | XMS_ITS | Encounter Summary ---
Author Organization Healthcare Address [address] [place] [address] Care Team Providers Care Air Grinder Name Role Phone Charles Barrett MD Primary Care Provider +1- [phone] Bozena Milan LPN Unavailable Unavailable Encounter Details Date Type Department Care Team (Late st Contact Info) Description 08/12/2021 Orders Only External Location [address] [place] [address] Provider, External Social History Tobacco [...] Description 11/23/2024 11:40 AM EDT Office Visit [facility] [place] 800 [facility]. [address] [phone] Indu Grimes MD [address] [place] [address] 12/08/2024 9:40 AM EDT Office Visit [facility] 800 [facility]. [address] [phone] Sylvester Farr MD [address] [place] [address] documented as of this encounter [...] on filedocumented in this encounter Care Teams Air Grinder Relationship Specialty Start Date End Date Charles Barrett MD [address] [place] [address] PCP - General 09/11/21 Bozena Milan LPN TCM Nurse 11/24/23 12/24/23 documented as of this encounter
--- OUTSIDE RECORDS SUMMARY | 2024-11-14 16:27 | XMS_ITS | Encounter Summary ---
Author Organization Healthcare Address [address] [place] [address] Care Team Providers Care Dairy Husbandman Name Role Phone Charles Barrett MD Primary Care Provider +1- [phone] Bozena Milan LPN Unavailable Unavailable Encounter Details Date Type Department Care Team (Late st Contact Info) Description 07/31/2021 Orders Only External Location [address] [place] [phone] Provider, External Social History Tobacco Use Types [...] Description 11/23/2024 11:40 AM EDT Office Visit [facility] [place] 800 [facility]. [address] [phone] Indu Grimes MD [address] [place] [address] 12/08/2024 9:40 AM EDT Office Visit [facility] 800 [facility]. [address] [phone] Sylvester Farr MD [address] [place] [address] documented as of this encounter [...] on filedocumented in this encounter Care Teams Dairy Husbandman Relationship Specialty Start Date End Date Charles Barrett MD [address] [place] [address] PCP - General 09/11/21 Bozena Milan LPN TCM Nurse 11/24/23 12/24/23 documented as of this encounter
--- OUTSIDE RECORDS SUMMARY | 2024-11-14 16:28 | XMS_ITS | Clinical Summary ---
[facility] Organization [facility] Address [address] [place] [address] Care Team Providers Care Stave Saw Operator Name Role Phone Charles Barrett MD [...] dose 75+ series) 06/22/2023 COVID-19 Vaccine (8 - 2024-2 6 season) 2024 11/24/2022, 02/05/2022, 11/27/2021, Additional history exists INFLUENZA [...] Payer (Ef fective 1998-Present) Name:Dagmar Flores Member ID:[id number] Relation to Subscriber:Self Name:Dagmar Flores Subscriber ID:[id number] Payer ID:[id number] Group ID:Not on file Type:Not on file Address: [facility] [id number] [employer] Care Teams Stave Saw Operator Relationship Specialty Start Date End Date Charles Barrett MD [facility] [address] [facility] [address] [place] [address] PCP - General Family Medicine 11/01/18
--- OUTSIDE RECORDS SUMMARY | 2024-11-14 16:28 | XMS_ITS | Patient Health Record ---
Author Organization [facility] Address [address] [place] [address] Care Team Providers Care Printed Circuit Boards Laminator Name Role Phone Joy PUENTES, Fran Primary Care Provider Piero Miranda MD, [facility] Unavailable Allergies Allergen (clinical drug ingredient) [...] Anemia due to chronic blood loss (disorder) (166187513) Iron deficiency anemia secondary to blood loss (chronic) (D50.0) 05/03/19 Active confirmed Problem Gastro-esophageal reflux disease without esophagitis (487436215) Gastro-esophag eal reflux disease without esophagitis (K21.9) 06/01/19 Active confirmed Problem Gastroduodenitis (984511758) Gastritis, unspecified, without bleeding (K29.70) 06/01/19 Active confirmed Problem Heartburn (27569648) Heartburn (R12) 05/03/19 Active confirmed Problem Dysphagia (45432507) Dysphagia, unspecified (R13.10) 06/01/19 Active confirmed Problem History of bariatric surgical procedure (117807913) Bariatric surgery status (Z98.84) 06/01/19 Active confirmed Vital Signs Heart Rate 80 /min 05/31/2024 Blood pressure diastolic 77 mm Hg 05/31/2024 Height 61 in 05/03/2024 Blood pressure systolic 140 mm Hg 05/31/2024 Weight 145 lbs 05/31/2024 BMI 27.39 kg/m2 05/03/2024 Procedures Procedure Date Ordered Date Performed Result Body Sit e EGD 05/03/2024 N/A Encounters Encounter Location Date Provider Diagnosis [facility] [address] [place] [address] 05/05/2024 Negro Hamiltontracy [facility], [facility] [address] [place] [address] 05/03/2024 Negro Miranda Iron deficiency anemia secondary to blood loss (chronic) D50.0 and Heartburn R12 [facility], [facility] [address] [place] [address] 05/31/2024 Negrotom Villasenortracy Gastro-esophageal reflux disease without esophagitis K21.9 ; [...] foods. Also discussed with the patient the manager investment side effects of PPI use which include [...] foods. Also discussed with the patient the manager investment side effects of PPI use which include [...] 09/29/2028 11:00:00 AM, [address], [place], [address], Insurance Providers Payer Name Payer Address Payer Phone Subscriber Number Group Number Insured Name Patient Relationship to Insured Coverage Start Date Coverage End Date MEDICARE [address] [place] [address] [phone] [id number] Sandra, Dagmar Self - patient is the insured [facility] [address] [place] [address] [id number] Dagmar Flores Self - patient is the [...]
--- OUTSIDE RECORDS SUMMARY | 2024-11-14 16:28 | XMS_ITS | Patient Health Record ---
Author Organization [facility] Address [address] [place] [address] Care Team Providers Care Vision Care Associate Name Role Phone MAX LOPEZ Primary Care Provider [phone] HENRRY CONNORS Unavailable [phone] Kolton Vazquez Unavailable [phone] Ashlee Argueta Unavailable [phone] Paulina Roque Unavailable [phone] Allergies Allergen (clinical drug ingredient) Drug/Non Drug Allergy documented on EMR Reaction Allergy Type Onset Date Status Aspirin (ASA) Gastric ulcer Drug Allergy Active Codeine Unknown Drug Allergy 04/25/2005 Active hydromorphone Dilaudid Unknown Drug Allergy 04/25/2005 Ac tive trazodone traZODone HCl headache Drug Allergy 01/23/2021 Ac tive Results Component Value Reference Range Flag Notes Hemoglobin A1c Reviewed date:01/21/2024 08:24:03 AM Interpretation: Performing Lab:JANE, [facility]-Gsbdn[address] [id number] Matthew Jameson MD Notes/Report: FASTING HEMOGLOBIN A1c 6.4 <5.7 % of total Hgb H For someone without known diabetes, a hemoglobin [...] A1c for diagnosis of diabetes for children. Lipid Panel Reviewed date:01/19/2024 09:21:45 AM Interpretation: Performing Lab:Josi LARA-Txzuf[address] [id number] Matthew Jameson MD Notes/Report: FASTING CHOLESTEROL, TOTAL 174 <200 mg/dL N HDL CHOLESTEROL 74 > OR = 50 mg/dL N TRIGLYCERIDES 110 <150 mg/dL N LDL-CHOLESTEROL 79 N Reference range: <100 Desirable range <100 mg/dL for primary prevention; <70 mg/dL for patients with CHD or diabetic patients with > or = 2 CHD risk factors. LDL-C is now calculated using the Jack-Ibanez calculation, which is a validated novel method providing better accuracy than the Friedewald equation in the estimation of LDL-C. Jack ORTIZ et al. TRISH. 2013;310(19): 3638-4093 (http://education.Tradier.Alt[employer] Education/faq /IBZ560) CHOL/HDLC RATIO 2.4 <5.0 (calc) N NON HDL CHOLESTEROL 100 <130 mg/dL (calc) N For patients with diabetes plus 1 major ASCVD risk factor, treating to a non-HDL-C goal of <100 mg/dL (LDL-C of <70 mg/dL) is considered a therapeutic option. URINALYSIS, COMPLETE Reviewed date:01/20/2024 08:01:28 AM Interpretation: Performing Lab: Notes/Report: URINALYSIS, COMPLETE Reviewed date:01/20/2024 08:01:28 AM Interpretation: Performing Lab: Notes/Report: CBC/Diff Ambiguous Default Reviewed date:01/21/2024 08:23:56 AM Interpretation: Performing Lab:Josi LARA-[address], [id number] Matthew Jameson MD Notes/Report: FASTING WHITE BLOOD CELL COUNT 5.1 3.8-10.8 Thousand/uL N RED BLOOD CELL COUNT 3.99 3.80-5.10 Million/uL N HEMOGLOBIN 11.6 11.7-15.5 g/dL L HEMATOCRIT 37.7 35.0-45.0 % N MCV 94.5 80.0-100.0 fL N MCH 29.1 27.0-33.0 pg N MCHC 30.8 32.0-36.0 g/dL L For adults, a slight decrease in the calculated MCHC value (in the range of 30 to 32 g/dL) is most likely not clinically significant; however, it should be interpreted with caution in correlation with other red cell parameters and the patient's clinical condition. RDW 14.0 11.0-15.0 % N PLATELET COUNT 310 140-400 Thousand/uL N MPV 9.5 7.5-12.5 fL N ABSOLUTE NEUTROPHILS 2698 0045-5124 cells/uL N ABSOLUTE LYMPHOCYTES 9174 901-0186 cells/uL N ABSOLUTE MONOCYTES 367 200-950 cells/uL N ABSOLUTE EOSINOPHILS 97 15-500 cells/uL N ABSOLUTE BASOPHILS 61 0-200 cells/uL N NEUTROPHILS 52.9 N LYMPHOCYTES 36.8 N MONOCYTES 7.2 N EOSINOPHILS 1.9 N BASOPHILS 1.2 N COMPREHENSIVE METABOLIC PANE L Reviewed date:01/19/2024 12:40:01 PM Interpretation: Performing Lab:JANE, [facility], [id number] Matthew Jameson MD Notes/Report: FASTING GLUCOSE 87 65-99 mg/dL N Fasting reference interval UREA NITROGEN (BUN) 12 7-25 mg/dL N CREATININE 0.73 0.60-1.00 mg/dL N EGFR 86 > OR = 60 mL/min/1.73m2 N BUN/CREATININE RATIO SEE NOTE: 6-22 (calc) Not Reported: BUN and Creatinine are within reference range. SODIUM 140 135-146 mmol/L N POTASSIUM 4.3 3.5-5.3 mmol/L N CHLORIDE 105 98-110 mmol/L N CARBON DIOXIDE 28 20-32 mmol/L N CALCIUM 8.5 8.6-10.4 mg/dL L PROTEIN, TOTAL 6.1 6.1-8.1 g/dL N ALBUMIN 3.7 3.6-5.1 g/dL N GLOBULIN 2.4 1.9-3.7 g/dL (calc) N ALBUMIN/GLOBULIN RATIO 1.5 1.0-2.5 (calc) N BILIRUBIN, TOTAL 0.5 0.2-1.2 mg/dL N ALKALINE PHOSPHATASE 112 37-153 U/L N AST 19 10-35 U/L N ALT 7 6-29 U/L N Vitamin B12 Reviewed date:02/09/2024 12:34:12 PM Interpretation: Performing Lab:Josi LARA [place] Matthew Jameson MD Notes/Report: 0; 0; 0 FASTING:NO FASTING: NO VITAMIN B12 863 727-4342 pg/mL N Folate (Folic Acid), Serum- Reviewed date:02/09/2024 12:34:12 PM Interpretation: Performing Lab:oJsi LARA [place] Matthew Jameson MD Notes/Report: 0; 0; 0 FASTING:NO FASTING: NO FOLATE, SERUM 6.2 N Reference Range Low: <3.4 Borderline: 3.4-5.4 Normal: >5.4 Ferritin, Serum Reviewed date:02/09/2024 12:34:12 PM Interpretation: Performing Lab:Josi LARA [place] Matthew Jameson MD Notes/Report: 0; 0; 0 FASTING:NO FASTING: NO FERRITIN 25 16-288 ng/mL N IRON, TOTAL Reviewed date:02/11/2024 03:55:11 PM Interpretation: Performing Lab:Josi LARA [id number] Matthew Jameson MD Notes/Report: 0 FASTING:NO FASTING: NO IRON, TOTAL 58 45-160 mcg/dL N URINE CULTURE Reviewed date:02/11/2024 03:52:47 PM Interpretation: Performing Lab:Josi LARA [id number] Matthew Jameson MD Notes/Report: 0 FASTING:NO FASTING: NO COLOR YELLOW YELLOW N APPEARANCE CLEAR CLEAR N SPECIFIC GRAVITY 1.013 1.001-1.035 N PH 5.5 5.0-8.0 N GLUCOSE NEGATIVE NEGATIVE N BILIRUBIN NEGATIVE NEGATIVE N KETONES NEGATIVE NEGATIVE N OCCULT BLOOD NEGATIVE NEGATIVE N PROTEIN NEGATIVE NEGATIVE N NITRITE NEGATIVE NEGATIVE N LEUKOCYTE ESTERASE NEGATIVE NEGATIVE N WBC NONE SEEN < OR = 5 /HPF N RBC NONE SEEN < OR = 2 /HPF N SQUAMOUS EPITHELIAL CELLS NONE SEEN < OR = 5 /HPF N BACTERIA NONE SEEN NONE SEEN /HPF N HYALINE CAST NONE SEEN NONE SEEN /LPF N NOTE This urine was analyzed for the presence of WBC, RBC, bacteria, casts, and other formed elements. Only those elements seen were reported. PT and PTT Reviewed date:02/11/2024 03:52:15 PM Interpretation: Performing Lab:Josi LARAa[address] [id number] Matthew Jameson MD Notes/Report: 0; 0; 0 FASTING:NO FASTING: NO PARTIAL THROMBOPLASTIN TIME, ACTIVATED 28 23-32 sec N This test has not been validated for monitoring unfractionated heparin therapy. For testing that is validated for this type of therapy, please refer to the Heparin Anti-Xa assay (test code 58215). For additional information, please refer to http://education.Patient Access Solutions/faq/ SVM089 (This link is being provided for informational/educati onal purposes only.) INR 1.1 N Reference Range 0.9-1.1 Moderate-intensity Warfarin Therapy 2.0-3.0 Higher-intensity Warfarin Therapy 3.0-4.0 PT 11.5 9.0-11.5 sec N REFLEXIVE URINE CULTURE Reviewed date:02/11/2024 03:55:32 PM Interpretation: Performing Lab:JANE [address] [id number] Matthew Jameson MD Notes/Report: 0 FASTING:NO FASTING: NO REFLEXIVE URINE CULTURE N O CULTURE INDICATED CBC/Diff Ambiguous Default Reviewed date:02/09/2024 12:21:03 PM Interpretation: Performing Lab:JANE [facility] [address] [id number] Matthew Jameson MD Notes/Report: 0; 0; 0 FASTING:NO FASTING: NO WHITE BLOOD CELL COUNT 5.2 3.8-10.8 Thousand/uL N RED BLOOD CELL COUNT 4.02 3.80-5.10 Million/uL N HEMOGLOBIN 12.0 11.7-15.5 g/dL N HEMATOCRIT 37.6 35.0-45.0 % N MCV 93.5 80.0-100.0 fL N MCH 29.9 27.0-33.0 pg N MCHC 31.9 32.0-36.0 g/dL L For adults, a slight decrease in the calculated MCHC value (in the range of 30 to 32 g/dL) is most likely not clinically significant; however, it should be interpreted with caution in correlation with other red cell parameters and the patient's clinical condition. RDW 14.3 11.0-15.0 % N PLATELET COUNT 264 140-400 Thousand/uL N MPV 10.0 7.5-12.5 fL N ABSOLUTE NEUTROPHILS 3214 4572-7093 cells/uL N ABSOLUTE LYMPHOCYTES 0147 888-7099 cells/uL N ABSOLUTE MONOCYTES 390 200-950 cells/uL N ABSOLUTE EOSINOPHILS 62 15-500 cells/uL N ABSOLUTE BASOPHILS 31 0-200 cells/uL N NEUTROPHILS 61.8 N LYMPHOCYTES 28.9 N MONOCYTES 7.5 N EOSINOPHILS 1.2 N BASOPHILS 0.6 N COMPREHENSIVE METABOLIC PANE L Reviewed date:02/09/2024 12:19:33 PM Interpretation: Performing Lab:JANE [facility]-[address], [id number] Matthew Jameson MD Notes/Report: 0; 0; 0 FASTING:NO FASTING: NO GLUCOSE 93 65-139 mg/dL N Non-fasting reference interval UREA NITROGEN (BUN) 10 7-25 mg/dL N CREATININE 0.67 0.60-1.00 mg/dL N EGFR 91 > OR = 60 mL/min/1.73m2 N BUN/CREATININE RATIO SEE NOTE: 6-22 (calc) Not Reported: BUN and Creatinine are within reference range. SODIUM 141 135-146 mmol/L N POTASSIUM 4.4 3.5-5.3 mmol/L N CHLORIDE 105 98-110 mmol/L N CARBON DIOXIDE 28 20-32 mmol/L N CALCIUM 9.0 8.6-10.4 mg/dL N PROTEIN, TOTAL 6.0 6.1-8.1 g/dL L ALBUMIN 3.7 3.6-5.1 g/dL N GLOBULIN 2.3 1.9-3.7 g/dL (calc) N ALBUMIN/GLOBULIN RATIO 1.6 1.0-2.5 (calc) N BILIRUBIN, TOTAL 0.5 0.2-1.2 mg/dL N ALKALINE PHOSPHATASE 92 37-153 U/L N AST 16 10-35 U/L N ALT 6 6-29 U/L N TSH+FREE T4 Reviewed date:03/18/2024 12:04:23 PM Interpretation: Performing Lab:TP, [facility]-Kdgdu[address] [id number] Matthew Jameson MD Notes/Report: FASTING: UNKNOWN TSH 1.18 0.40-4.50 mIU/L N T4, FREE 0.9 0.8-1.8 ng/dL N SPECIMEN INTEGRITY COMPROMIS ED Reviewed date:03/18/2024 12:04:23 PM Interpretation: Performing Lab:TP, [facility]-[address]jzps[address] [id number] Matthew Jameson MD Notes/Report: FASTING: UNKNOWN SPECIMEN INTEGRITY COMPROMISED Whole blood, unspun or partially spun gel barrier tube was received more than 6 hours since collection. A false elevation of K, Phos and LD as well as a false decrease in glucose may occur due to prolonged contact with red cells. CBC/Diff Ambiguous Default Reviewed date:03/16/2024 08:41:30 AM Interpretation: Performing Lab:JANE [facility]-[address]yrcx[address] [id number] Matthew Jameson MD Notes/Report: FASTING: UNKNOWN WHITE BLOOD CELL COUNT 5.6 3.8-10.8 Thousand/uL N RED BLOOD CELL COUNT 3.54 3.80-5.10 Million/uL L HEMOGLOBIN 10.5 11.7-15.5 g/dL L HEMATOCRIT 34.3 35.0-45.0 % L MCV 96.9 80.0-100.0 fL N MCH 29.7 27.0-33.0 pg N MCHC 30.6 32.0-36.0 g/dL L For adults, a slight decrease in the calculated MCHC value (in the range of 30 to 32 g/dL) is most likely not clinically significant; however, it should be interpreted with caution in correlation with other red cell parameters and the patient's clinical condition. RDW 13.9 11.0-15.0 % N PLATELET COUNT 429 140-400 Thousand/uL H MPV 9.7 7.5-12.5 fL N ABSOLUTE NEUTROPHILS 3035 0879-5643 cells/uL N ABSOLUTE LYMPHOCYTES 2038 850-3900 cells/uL N ABSOLUTE MONOCYTES 364 200-950 cells/uL N ABSOLUTE EOSINOPHILS 123 15-500 cells/uL N ABSOLUTE BASOPHILS 39 0-200 cells/uL N NEUTROPHILS 54.2 N LYMPHOCYTES 36.4 N MONOCYTES 6.5 N EOSINOPHILS 2.2 N BASOPHILS 0.7 N COMPREHENSIVE METABOLIC PANE L Reviewed date:03/16/2024 08:41:15 AM Interpretation: Performing Lab:TP, [facility]-[address], FnhnoWK[address] Matthew Jameson MD Notes/Report: FASTING: UNKNOWN GLUCOSE 95 65-99 mg/dL N Fasting reference interval UREA NITROGEN (BUN) 11 7-25 mg/dL N CREATININE 0.57 0.60-1.00 mg/dL L EGFR 95 > OR = 60 mL/min/1.73m2 N BUN/CREATININE RATIO 19 6-22 (calc) N SODIUM 141 135-146 mmol/L N POTASSIUM 5.3 3.5-5.3 mmol/L N CHLORIDE 106 98-110 mmol/L N CARBON DIOXIDE 26 20-32 mmol/L N CALCIUM 8.5 8.6-10.4 mg/dL L PROTEIN, TOTAL 5.7 6.1-8.1 g/dL L ALBUMIN 3.3 3.6-5.1 g/dL L GLOBULIN 2.4 1.9-3.7 g/dL (calc) N ALBUMIN/GLOBULIN RATIO 1.4 1.0-2.5 (calc) N BILIRUBIN, TOTAL 0.5 0.2-1.2 mg/dL N ALKALINE PHOSPHATASE 106 37-153 U/L N AST 25 10-35 U/L N Results slight ly increased due to hemolysis. ALT 7 6-29 U/L N CBC/Diff Ambiguous Default Reviewed date:03/28/2024 01:34:05 PM Interpretation: Performing Lab:JANE, [facility], YnezhVS[address] Matthew Jameson MD Notes/Report: FASTING: UNKNOWN WHITE BLOOD CELL COUNT 4.2 3.8-10.8 Thousand/uL N RED BLOOD CELL COUNT 3.73 3.80-5.10 Million/uL L HEMOGLOBIN 11.4 11.7-15.5 g/dL L HEMATOCRIT 35.2 35.0-45.0 % N MCV 94.4 80.0-100.0 fL N MCH 30.6 27.0-33.0 pg N MCHC 32.4 32.0-36.0 g/dL N For adults, a slight decrease in the calculated MCHC value (in the range of 30 to 32 g/dL) is most likely not clinically significant; however, it should be interpreted with caution in correlation with other red cell parameters and the patient's clinical condition. RDW 13.8 11.0-15.0 % N PLATELET COUNT 271 140-400 Thousand/uL N MPV 10.1 7.5-12.5 fL N ABSOLUTE NEUTROPHILS 2348 8419-1203 cells/uL N ABSOLUTE LYMPHOCYTES 1590 577-8604 cells/uL N ABSOLUTE MONOCYTES 361 200-950 cells/uL N ABSOLUTE EOSINOPHILS 101 15-500 cells/uL N ABSOLUTE BASOPHILS 21 0-200 cells/uL N NEUTROPHILS 55.9 N LYMPHOCYTES 32.6 N MONOCYTES 8.6 N EOSINOPHILS 2.4 N BASOPHILS 0.5 N Ferritin, Serum Reviewed date:07/01/2024 10:47:40 AM Interpretation: Performing Lab:JANE [address]Rpuxr[address] YipaFL[address] Matthew Jameson MD Notes/Report: FASTING: UNKNOWN FERRITIN 68 16-288 ng/mL N IRON, TOTAL Reviewed date:07/01/2024 10:46:27 AM Interpretation: Performing Lab:JANE [facility] [place] Matthew Jameson MD Notes/Report: FASTING: UNKNOWN IRON, TOTAL 30 45-160 mcg/dL L VITAMIN B12/FOLATE, SERUM PA LINDA Reviewed date:07/01/2024 10:47:53 AM Interpretation: Performing Lab:TP [facility] GeriPhvtr[address] [place]ujanoaFL[address] Matthew Jameson MD Notes/Report: FASTING: UNKNOWN VITAMIN B12 048 970-9666 pg/mL N FOLATE, SERUM 6.3 N Reference Range Low: <3.4 Borderline: 3.4-5.4 Normal: >5.4 CBC/Diff Ambiguous Default Reviewed date:07/01/2024 10:46:42 AM Interpretation: Performing Lab:Josi LARA [place] Matthew Jameson MD Notes/Report: FASTING: UNKNOWN WHITE BLOOD CELL COUNT 6.5 3.8-10.8 Thousand/uL N RED BLOOD CELL COUNT 3.72 3.80-5.10 Million/uL L HEMOGLOBIN 10.8 11.7-15.5 g/dL L HEMATOCRIT 35.1 35.0-45.0 % N MCV 94.4 80.0-100.0 fL N MCH 29.0 27.0-33.0 pg N MCHC 30.8 32.0-36.0 g/dL L For adults, a slight decrease in the calculated MCHC value (in the range of 30 to 32 g/dL) is most likely not clinically significant; however, it should be interpreted with caution in correlation with other red cell parameters and the patient's clinical condition. RDW 12.8 11.0-15.0 % N PLATELET COUNT 358 140-400 Thousand/uL N MPV 10.2 7.5-12.5 fL N ABSOLUTE NEUTROPHILS 3582 7889-6303 cells/uL N ABSOLUTE LYMPHOCYTES 2035 850-3900 cells/uL N ABSOLUTE MONOCYTES 566 200-950 cells/uL N ABSOLUTE EOSINOPHILS 267 15-500 cells/uL N ABSOLUTE BASOPHILS 52 0-200 cells/uL N NEUTROPHILS 55.1 N LYMPHOCYTES 31.3 N MONOCYTES 8.7 N EOSINOPHILS 4.1 N BASOPHILS 0.8 N COMPREHENSIVE METABOLIC PANE L Reviewed date:07/01/2024 10:47:02 AM Interpretation: Performing Lab:TP, [facility]-[address], QzopuPN[address] Matthew Jameson MD Notes/Report: FASTING: UNKNOWN GLUCOSE 105 65-99 mg/dL H Fasting reference interval For someone without known diabetes, a glucose value between 100 and 125 mg/dL is consistent with prediabetes and should be confirmed with a follow-up test. UREA NITROGEN (BUN) 8 7-25 mg/dL N CREATININE 0.64 0.60-1.00 mg/dL N EGFR 92 > OR = 60 mL/min/1.73m2 N BUN/CREATININE RATIO SEE NOTE: 6-22 (calc) Not Reported: BUN and Creatinine are within reference range. SODIUM 140 135-146 mmol/L N POTASSIUM 4.3 3.5-5.3 mmol/L N CHLORIDE 105 98-110 mmol/L N CARBON DIOXIDE 22 20-32 mmol/L N CALCIUM 8.5 8.6-10.4 mg/dL L PROTEIN, TOTAL 5.8 6.1-8.1 g/dL L ALBUMIN 3.6 3.6-5.1 g/dL N GLOBULIN 2.2 1.9-3.7 g/dL (calc) N ALBUMIN/GLOBULIN RATIO 1.6 1.0-2.5 (calc) N BILIRUBIN, TOTAL 0.3 0.2-1.2 mg/dL N ALKALINE PHOSPHATASE 117 37-153 U/L N AST 15 10-35 U/L N ALT 5 6-29 U/L L CT Scan : Chest Reviewed date:01/26/2024 01:56:14 PM Interpretation: Performing Lab: Notes/Report: EKG Reviewed date:03/14/2024 03:58:50 PM Interpretation: Performing Lab: Notes/Report: Urine analysis (IH) Reviewed date:01/25/2024 03:47:13 PM Interpretation: Performing Lab: Notes/Report: EKG Reviewed [...] date:01/07/2024 02:14:41 PM Interpretation: Performing Lab: Notes/Report: Echocardiogram, transthoraci [...] date:06/30/2024 08:28:40 AM Interpretation: Performing Lab: Notes/Report: Pathology Report Reviewed date:05/19/2024 08:18:15 AM Interpretation: Performing Lab: Notes/Report: Esophagogastroduodenoscopy ( EGD) Reviewed date:05/09/2024 10:21:03 AM Interpretation: Performing Lab: Notes/Report: Reason For Referral No Information Medications Medication SIG (Take, Route, Frequency, Duration) Notes Start Date End Date Status Albuterol Sulfate HFA 108 (90 Base) MCG/ACT Aerosol Solution 1 puff as needed Inhalation every 4-6 hours Active Trelegy Ellipta 200-62.5-25 MCG/ACT Aerosol Powder Breath Activated Inhale 1 puff by mouth once daily. Rinse mouth after each use; Duration: 30 days Active Albuterol Sulfate 1.25 MG/3ML Nebulization Solution 3 ml as needed Inhalation Three times a day dx j44.9; Duration: 90 days Active Omeprazole 40 MG Capsule Delayed Release 1 capsule Orally twice a day; Duration: 30 days 06/14/2020 Active Ranolazine ER 500 MG Tablet Extended Release 12 Hour 1 tablet Orally Twice a day Active Montelukast Sodium 10 MG Tablet Take 1 tablet by mouth once daily; Duration: 90 days Active BD Syringe/Needle 25G X 5/8 1 ML Miscellaneous use one per month for B-12 injections; Duration: 90 days please dispense the one that is available for patient. Nic 06/30/2024 Active Midodrine HCl 5 MG Tablet 1 [...] 90 days Active Vitamin B-6 100 MG Tablet 1 tablet Orally Once a day Unknown Keppra 500 MG Tablet 1 tablet Orally every 12 hrs; Duration: 90 days Active Vitamin B-1 100 MG Tablet 1 tablet Orally Once a day Unknown traMADol HCl 50 MG Tablet 1 tablet as needed ACUTE PAIN EXCEPTION Orally Two times a day; Duration: 10 days PRN 06/02/2023 Unknown Sucralfate 1 GM Tablet 1 tablet on an empty stomach Oral Twice a day; Duration: 30 days 03/14/2024 Unknown Eliquis 5 MG Tablet Take 1 tablet Orally Twice a day; Duration: 90 days Active Effexor XR 75 MG Capsule Extended Release 24 Hour 1 capsule with food Oral Once a day; Duration: 90 days Active Flonase Allergy Relief 50 MCG/ACT Suspension 1 spray in each nostril Nasally Twice a day; Duration: 30 days 05/09/2024 Unknown Cyanocobalamin 1000 MCG/ML Solution 1,000mcg / 1cc q month Injection once a month; Duration: 90 days Active ARIPiprazole 20 MG Tablet 1 tablet Orally Once a day; Duration: 30 days 05/02/2024 Unknown Atorvastatin Calcium 40 MG Tablet 1 tablet Orally every night; Duration: 90 days Active ALPRAZolam 0.25 MG Tablet 1 tablet Orally Twice a day; Duration: 10 days As needed 05/02/2024 Unknown Immunizations Vaccine Route Administration Date Status Comme nts COVID-19 Pfizer Unknown 03/17/2020 Administered COVID-19 Pfizer Unknown 04/09/2020 Administered Flulaval Unknown 01/07/2011 Administered Fluzone High-Dose pf (>=65 yr) Unknown 12/11/2017 Administered Influenza, split virus (6-35 months dose) IM Intramuscular 02/19/2006 Administered Pneumococcal conjugate PCV 13 IM Intramuscular 01/04/2016 Administered Pneumococcal polysaccharide PPV23 IM Intramuscular 12/03/2005 Administered Pneumococcal polysaccharide PPV23 Unknown 01/20/2012 Administered Tetanus toxoid, absorbed IM Intramuscular 06/06/2009 Admin istered Fluvirin (4 + years dose) IM Intramuscular 01/04/2016 Admi nistered Fluvirin (4 + years dose) Unknown 11/09/2014 Administer ed Fluvirin (4 + years dose) Unknown 12/24/2013 Administer ed Fluvirin (4 + years dose) Unknown 11/15/2012 Administer ed Flulaval Unknown 11/10/2011 Administered Flucelvax Quadrivalent pf (4 years) IM Intramuscular 12/31/2018 Administered Flucelvax Quadrivalent pf (4 years) Unknown 12/12/2016 Administered Social History Sex Assigned At : Social History Observation Description Sex Assigned At Female Social History [facility] Social History Social Info Question Answer 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 [...] often do you attend [facility] or sikh services? 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 no Household: Social Info Question Answer Notes Household Marital status: Number of adults in household: 2 Additional Details Category Social Info Options Details Miscellaneous: Exercise: yes walking Home smoke detector use: yes smoke d etectors Occupation: Retired Drugs/Alcohol: Do you smoke marijuana? De nies Do you drink alcohol? Yes, Daily . 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 No personal H x of smoking Section Notes: 2-3 glass of wine on [...] Status W/U Status Risk Notes Problem Anemia (596793069) Anemia, unspecified (D64.9) Active confirmed Problem Thrombophilia (002514349) Other thrombophilia (D68.69) Active confirmed Problem Type 2 diabetes mellitus with peripheral angiopathy (305586715) Type 2 diabetes mellitus with diabetic peripheral angiopathy without gangrene (E11.51) 018 Active confirmed Problem Mild recurrent major depression (54657852) Major depressive disorder, recurrent, mild (F33.0) Inactive confirmed Problem Moderate recurrent major depression (21648706) Major depressive disorder, recurrent, moderate (F33.1) Active confirmed Problem Affective psychosis (480536170) Unspecified mood [affective] disorder (F39) Inactive confirmed Problem Alzheimer's disease (27842539) Alzheimer's disease, unspecified (G30.9) Active confirmed Problem Obstructive sleep apnea syndrome (disorder) (70209754) Obstructive sleep apnea (adult) (pediatric) (G47.33) 015 Active confirmed Problem Polyneuropathy (06181708) Polyneuropathy, unspecified (G62.9) Inactive confirmed Problem 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 Problem Essential hypertension (43643010) Essential (primary) hypertension (I10) 011 Active confirmed Problem 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) (60399267254205662 ) 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) Active confirmed Problem Paroxysmal atrial fibrillation (041676572) Paroxysmal atrial fibrillation (I48.0) Active confirmed Problem Sick sinus syndrome (77399773) Sick sinus syndrome (I49.5) 013 Active confirmed Problem Carotid artery occlusion (061148479) Occlusion and stenosis of unspecified carotid artery (I65.29) 016 Active confirmed [id number] 400- Problem Atherosclerosis of aorta (97291706) Atherosclerosis of aorta (I70.0) 014 Active confirmed Problem Allergic rhinitis (12266104) Allergic rhinitis, unspecified (J30.9) 018 Active confirmed Problem Simple chronic bronchitis (85265203) Simple chronic bronchitis (J41.0) 017 Active confirmed Problem Chronic obstructive pulmonary disease (41335922) Chronic obstructive pulmonary disease, unspecified (J44.9) Inactive confirmed Problem Gastro-esophageal reflux disease without esophagitis (687918975) Gastro-esophageal reflux disease without esophagitis (K21.9) Inactive confirmed Problem Disorder of bone (13328305) Other specified disorders of bone density and structure, other site (M85.88) Inactive confirmed Problem Menopause (401695743) Menopausal and female climacteric states (N95.1) Inactive confirmed Problem Heartburn (90109343) Heartburn (R12) Active confirmed Problem Cervix excision (990766804) Acquired absence of cervix with remaining uterus (Z90.712) 015 Problem resolved confirmed Problem Cardiac pacemaker in situ (993404031) Presence of cardiac pacemaker (Z95.0) 016 Active confirmed Problem History of bariatric surgical procedure (347954242) Bariatric surgery status (Z98.84) 011 Problem resolved confirmed Problem Prediabetes (483386098) Prediabetes (R73.03) Inactive confirmed Problem Type II diabetes mellitus without complication (609365423) Type 2 diabetes mellitus without complication, without long-term current use of insulin (E11.9) Inactive confirmed Problem Chronic bronchitis (08479618) Chronic bronchitis, unspecified chronic bronchitis type (J42) Inactive confirmed Problem Alcohol dependence (54206118) Uncomplicated alcohol dependence (F10.20) Active confirmed Problem Osteoarthritis of knee (143564196) Primary osteoarthritis of right knee (M17.11) Active confirmed Problem Senile purpura (17325807) Senile purpura (D69.2) Active confirmed Problem Osteoarthritis of knee (243854316) Primary osteoarthritis of left knee (M17.12) Active confirmed Problem Iron deficiency anemia (66901786) Iron deficiency anemia, unspecified iron deficiency anemia type (D50.9) Active confirmed Problem Anemia (071906200) Anemia, unspecified type (D64.9) Active confirmed Problem Chronic atrial fibrillation (506224106) Chronic atrial fibrillation (I48.20) Inactive confirmed Problem Insomnia (273471992) Insomnia, unspecified type (G47.00) Active confirmed Problem Angina (099404807) 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 (I25.119) Inactive confirmed Problem Hypertensive heart failure (62247498) 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) Active confirmed Problem Seizure (68914248) Seizure (R56.9) Active confi rmed Problem Chronic sinusitis (03310366) Sinusitis, unspecified chronicity, unspecified location (J32.9) Inactive confirmed Problem Pre-op evaluation (896491440) Pre-op evaluation (Z01.818) Inactive confirmed Problem Localized, primary osteoarthritis of the pelvic region and thigh (747964615) Primary osteoarthritis of left hip (M16.12) Active confirmed Problem Peripheral vascular disease (041314502) PAD (peripheral artery disease) (I73.9) Active confirmed Problem Dyslipidemia (997027407) Dyslipidemia (E78.5) Active confirmed Problem Type 2 diabetes mellitus with other specified complication, without long-term current use of insulin (E11.69) Active confirmed Problem Thrombophilia (918181909) Thrombophilia (D68.59) Inactive confirmed Problem Malignant melanoma of skin (10954137) Malignant melanoma, unspecified site (C43.9) Active confirmed Problem Chronic diastolic heart failure (147648513) Chronic heart failure with preserved ejection fraction (HFpEF) (I50.32) Active confirmed Problem Diastolic heart failure (424780629) Heart failure with preserved left ventricular function (HFpEF) (I50.30) Inactive confirmed Vital Signs Heart Rate 90 /min 07/18/2024 Respiratory Rate 18 /min 07/18/2024 Oximetry 95 % 07/18/2024 Blood pressure diastolic 64 mm Hg 07/18/2024 Height 61 in 07/18/2024 Blood pressure systolic 108 mm Hg 07/18/2024 Weight 138.2 lbs 07/18/2024 BMI 26.11 kg/m2 07/18/2024 Procedures Procedure Date Ordered Date Performed Result Body Sit e ANNUAL- Medicare- Subsequent 05/26/2024 undefin ed Care of Older Adults (COA) 05/26/2024 undefined Encounters Encounter Location Date Provider Diagnosis [facility] [place] [address] 01/18/2024 MAX LOPEZ Dyslipidemia E78.5 ; Essential (primary) hypertension I10 and Type 2 diabetes mellitus with diabetic peripheral angiopathy without gangrene E11.51 [facility] [address] [place] [address] 01/26/2024 MAX LOPEZ Hospital discharge follow-up Z09 ; Atherosclerotic heart disease of [place] coronary artery with other forms of angina pectoris I25.118 ; Essential (primary) hypertension I10 ; Heart failure with preserved left ventricular function (HFpEF) I50.30 ; Spontaneous ecchymoses R23.3 ; Chronic atrial fibrillation I48.20 ; Pre-op evaluation Z01.818 ; Anemia, unspecified type D64.9 ; Other thrombophilia D68.69 and Simple chronic bronchitis J41.0 [facility] [place] [address] 02/15/2024 MAX LOPEZ Type 2 diabetes pernell itus with diabetic peripheral angiopathy without gangrene E11.51 ; Essential (primary) hypertension I10 ; Dyslipidemia E78.5 and Primary osteoarthritis of left knee M17.12 [facility] [place] [address] 03/14/2024 MAX LOPEZ Primary osteoarthrit is of left knee M17.12 ; Anemia, unspecified type D64.9 ; Heartburn R12 ; Dehydration E86.0 ; Fatigue, unspecified type R53.83 ; Polyarthralgia M25.50 ; Dyslipidemia E78.5 ; Prediabetes R73.03 and Encounter for other administrative examinations Z02.89 [facility] [place] [address] 03/23/2024 MAX LOPEZ Anemia, unspecified type D64.9 ; Essential (primary) hypertension I10 ; Uncomplicated alcohol dependence F10.20 and Heartburn R12 [facility] [place] [address] 05/02/2024 MAX LOPEZ Essential (primary) hypertension I10 ; Anemia, unspecified type D64.9 ; Dyslipidemia E78.5 ; Primary osteoarthritis of left knee M17.12 ; Heartburn R12 ; Major depressive disorder, recurrent, moderate F33.1 ; Primary osteoarthritis of left hip M16.12 ; Seizure R56.9 ; Other specified hypotension I95.89 and Allergic rhinitis, unspecified J30.9 [address] [address] [place] [address] 05/09/2024 Paulina Roque Simple chronic bronc hitis J41.0 ; Sinusitis, unspecified chronicity, unspecified location J32.9 and Other fatigue R53.83 [address] [place] [address] 05/26/2024 HENRRY PATELRuthie Encounter for genera l adult medical examination without abnormal findings Z00.00 ; Encounter for screening for malignant neoplasm of colon Z12.11 ; Encounter for screening mammogram for malignant neoplasm of breast Z12.31 ; Encounter for examination of eyes and vision without abnormal findings Z01.00 ; Encounter for screening for other disorder Z13.89 ; Asymptomatic menopausal state Z78.0 and BMI 26.0-26.9,adult Z68.26 [facility] [address] [place] [address] 06/30/2024 HENRRY CONNORS Anemia, unspecified D64.9 ; Syncope, unspecified syncope type R55 ; Low serum potassium E87.6 ; B12 deficiency E53.8 ; Left hip pain M25.552 and Hospital discharge follow-up Z09 [facility] [address] [place] [address] 07/18/2024 Kolton Vazquez Essential (primary) hypertension I10 ; Atherosclerotic heart disease of [place] coronary artery with other forms of angina pectoris I25.118 ; Dyslipidemia E78.5 ; Type 2 diabetes mellitus with other specified complication, without long-term current use of insulin E11.69 ; Iron deficiency anemia, unspecified iron deficiency anemia type D50.9 and Major depressive disorder, recurrent, moderate F33.1 [facility] [address] [place] [address] 10/19/2024 MAX LOPEZ [facility] [address] [place] [address] 01/04/2024 MAX LOPEZ [facility] [address] [place] [address] 05/04/2024 MAX LOPEZ [facility] [address] [place] [address] 05/12/2024 MAX LOPEZ [facility] [address] [place] [address] 06/23/2024 MAX LOPEZ [facility] [address] [place] [address] 06/27/2024 MAX LOPEZ Primary osteoarthrit is of left hip M16.12 ; Near syncope R55 ; 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 07/18/2024 Atherosclerotic heart disease of [place] coronary artery with other forms of angina [...] reports she did colonoscopy in 2023 in [place]. Will bring info in 2024. 03/23/2024 Uncomplicated [...] pt, she is doing MMG annually in [place]. Will bring the info in Dec 2024. [...] pt, she does eye exam annually with [facility]. MR requested. 05/02/2024 Heartburn (ICD-10 - [...] nasal spray, otc meds flonase/nasacort, antihistamine like josefina/claritin/z yrtec 01/26/2024 Other RECOMMENDATIONS include adequate nutrition, up [...] 03/14/2024 Other HPI ,exam assessment, plan and clinical data management manager done in collaboration with Maninder Spike, PA-C Patient educated on lifestyle modification including [...] pt's home proivder's location during today's visit: [facility] (clinic) Video/audio: krunal. 05/26/2024 Other *Advanced Care Directive in file. pt reports she will do hip surgery in June and is planning to go to [place] in July, and will return to [place] in 2024. 06/30/2024 Other RECOMMENDATIONS given include: [...] (14) 01/26/2024 PT/INR Prothrombin with INR 01/26/2024 PAD- Peripheral Arterial Doppler 025 Echocardiogram, transthoracic 06/23/2024 IRON, TOTAL 03/14/2024 Care of Older Adults (COA) 05/13/2023 Future Test Test Name Order Date Hemoglobin A1c 04/27/2024 Ferritin, Serum 04/27/2024 Lipid Panel 04/27/2024 Comp. Metabolic Panel (14) 04/27/2024 IRON AND TOTAL IRON BINDING CAPACITY URINALYSIS, COMPLETE 04/27/2024 VITAMIN B12/FOLATE, SERUM PANEL 04/27/19 CBC/Diff Ambiguous Default 04/27/2024 Hemoglobin A1c 01/09/2025 Microalb/Creat Ratio, Randm Ur Lipid Panel 01/09/2025 Comp. Metabolic Panel (14) 01/09/2025 URINALYSIS, COMPLETE 01/09/2025 CBC/Diff Ambiguous Default 01/09/2025 Next Appt Details Provider Name:MAX LOPEZ, 01/18/2025 08:30:00 AM, [address] [place] [address], [phone], Provider Name:Kolton Vazquez, 04:40:00 PM, [address] [place] [address], [phone], Provider Name:Girma nance, 05/29/2025 02:00:00 PM, [address] [place] [address], [phone], Insurance Providers Payer Name Payer Address Payer Phone Subscriber Number Group Number Insured Name Patient Relationship to Insured Coverage Start Date Coverage End Date [place] Medicare Part B 9 [facility] [address] [address] [place], [place] [id number] IDA MOTLEY Self - patient is the insured 4 [employer] and Blue [facility] [address] [place], [place] [id number] IDA MOTLEY Self - patient is the insured 5 Medications Administered Medication Instructions Date of Administration Dosage Notes Depomedrol 80mg 05/31/2020 1 units Depomedrol 80mg 03/27/2023 1 units Depomedrol 80mg 03/30/2023 1 units Depomedrol 80mg 04/02/2023 1 units Normal Saline 500ml 03/14/2024 500 mL Rocephin 250mg 12/23/2018 1000 mg Solumedrol 125mg 12/23/2018 1 units Vitamin B-12 1000 mcg 04/02/2019 1000 Vitamin B-12 1000 mcg 04/04/2019 1000 Vitamin B-12 1000 mcg 04/05/2019 1000 Vitamin B-12 1000 mcg 04/06/2019 1000 Vitamin B-12 1000 mcg 04/11/2019 1000 Vitamin B-12 1000 mcg 04/19/2019 1000 Vitamin B-12 1000 mcg 05/09/2019 1000 Vitamin B-12 1000 mcg 05/02/2019 1000 Solumedrol 125mg 04/08/2019 1 units Rocephin 250mg 04/08/2019 1000 mg Depomedrol 80mg 01/23/2021 1 units Medical (General) History Medical History History ICD [...] with remainin g uterus (resolved 02/04/2016) undefined 2023.15 CXR ASVDa. [id number] 7 Alcohol use -patient has 3 or [...] Reason Date(Month/Year) Hysterectomy 1986 DX syncope @ [facility] l 06/19/2024-06/23/2024 DX lt hip pain @ [facility] 06/07/2024-06/08/2024 DX fall @ [facility] ER VISIT 12/30/2023 melanoma removed from arm 02/17/2022 pt passed out 10/09/20-10/11/20 Right knee replacement 07/21/2017
--- OUTSIDE RECORDS SUMMARY | 2024-11-14 16:28 | XMS_ITS | Clinical Summary ---
Author Organization [facility] Address [address], [address] [place] [address] Care Team Providers Care White Sugar Supervisor Name Role Phone Charles Barrett MD Primary Care Provider [phone]- [phone] Social History Tobacco Use Types Packs/Day Years [...] Insurance MEDICARE [place] FEP Care Teams White Sugar Supervisor Relationship Specialty Start Date End Date Charles Barrett MD [address] [facility] [address] [facility] [address] [place] [address] PCP - General 06/09/19
--- OUTSIDE RECORDS SUMMARY | 2024-11-14 16:28 | XMS_ITS | Patient Health Record ---
Author Organization [facility] Address [address] [address] Care Team Providers Care Consumer Product Advisor Name Role Phone Joy PUENTES, Fran Primary Care Provider UnavailWade Lamb Unavailable [phone] Migration, Provider Unavailable Unavailable Allergies Allergen (clinical [...] Active Encounters Encounter Location Date Provider Diagnosis [facility] [address] [facility] [address] [place] [address] 09/17/2024 Provider Migration Plan Of Treatment No Information Insurance Providers Payer Name Payer Address Payer Phone Subscriber Number Group Number Insured Name Patient Relationship to Insured Coverage Start Date Coverage End Date Medicare Part B [address] [place] [address] [id number] IDA MOTLEY Self - patient is the insured 4 [facility] [address] [place] [address] [phone] [id number] ROSY MOTLEY Spouse - patient is the spouse of the insured 5 Medical (General) History Medical History History ICD Code Angina Atrial Fibrillation fractures Esophageal reflux heart murmur Hyperlipidemia pneumonia Respiratory Disease Arthritis Bronchitis Type II diabetes Congestive Heart Failure Edema heart disease Seizures ulcers Surgical History Surgery Date(Month/Year) bariatic surgery Tonsillectomy Appendectomy Hysterectomy Pacemaker
--- OUTSIDE RECORDS SUMMARY | 2024-11-14 16:28 | XMS_ITS | Clinical Summary ---
Author Organization [facility] Address [address] [place] [address] Care Team Providers Care Monorail Helper Name Role Phone Charles Barrett MD Primary Care Provider [phone]- [phone] Allergies Active Allergy Reactions Criticality Noted Date [...] tablet by mouth 2 times a day. 4 Active ondansetron (Zofran) 4 MG tablet Take 1 tablet by mouth every 6 hours. Active sucralfate (Carafate) 1 g tablet Take 1 tablet by mouth 4 times a day. Active Active Problems Problem Noted Date Diagnosed Date Type 2 diabetes mellitus with diabetic neuropath y 11/14/2024 Atherosclerosis of artery of both lower extremit [...] virus 12/10/2023 Facet arthropathy 12/10/2023 History of [place] (myocardial infarction) 12/10/2023 Lumbar spondylosis 12/10/2023 Status [...] joint prosth esis 04/02/2023 Current use of longwall foreman anticoagulation 023 Pacemaker generator end of life 11/12/2022 Osteoarthritis of right knee 05/27/2022 Arthritis of right knee 05/22/2022 Overview (12/03/2023): Added automatically from request for surgery [id number] 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 Overview (07/14/2024): Unilateral primary [...] (11/06/2021): Added automatically from request for surgery [id number] SSS (sick sinus syndrome) 09/30/2021 Hypotension, unspecified [...] Acute diastolic heart failure 08/28/2021 08/28/2021 Old [place] (myocardial infarction) 08/28/2021 08/07/2022 Encounters Date Type Department Care Team Description 10/10/2024 3:15 PM EDT - 10/10/2024 11:59 PM EDT Hospital Encounter Cardiac Imaging [address] [place] [address] Pacemaker Discharge Disposition: Home or Self Care 10/10/2024 Travel from Last 3 Months Immunizations Immunization [...] Father Diabetes Father Atrial fibrillation Mother Ida Evan CVA Mother Ida Evan Diabetes Mother Ida [...] week 11/25/2023 How often do you attend [facility] or mandaen services? More than 4 times per year 11/25/2023 Do you belong to any clubs o r organizations such as moravian groups, unions, fraternal or athletic groups, or [...] place to sleep or slept in a custodial (including now)? No 11/23/2023 Utilities Answer Date [...] Description 11/23/2024 11:40 AM EDT Office Visit [facility] [place] [address] [place] [address] Indu [place] MD [address] [place] [address] 12/08/2024 9:40 AM EDT Office Visit [facility] [address] [place] [address] Sylvester Farr MD [address] [place] [address] Health Maintenance Due Date Last Done Comments [facility]-Bone Density Scan 1950 [facility]-Medicare Annual Wellness (AWV) 1950 [facility]-Infant/Child/Adol SDOH Screenings 1950 Diabetes: Dental Exam 1958 [facility]-Zoster Vaccines (2 of 3) 12/06/2008 10/11/2008 [facility]-RSV Vaccine: 60+ Years or (1 - 1-dose 75+ series) 06/22/2023 [facility]- SDOH Screenings 05/22/2024 [facility]-Adult SDOH Screenings 05/22/2024 11/23/2023 [facility]-Diabetes: Hemoglobin A1C 05/22/2024 11/23/2023 [id number] Vaccine (9 - Pfizer risk 2023- season) 2024 11/11/2023, 11/24/2022, 02/05/2022, Additional history exists [facility]-Influenza Vaccine (#1) 11/07/202411/10, 11/24/2022, 12/02/2021, Additional [...] this topic Medical Devices Implanted Type Area Paint Striping Machine Operator Device Identifier Shelf Expiration Date Model / Serial / Lot Pacemaker Assurity Mri Dr - [id number] Implanted:Qty: 1 on 11/13/2022 by Indu [place] MD at [facility] [id number] 03/08/2024 [id number] / [id number] / [id number] Envelope Tyrx Pm Medium - [id number] Implanted:Qty: 1 on 11/13/2022 by Indu [place] MD at [facility] [id number] 08/02/2023 [id number] / / [id number] Procedures Procedure Name Priority Date/Time Associated Diagnosis [...] duration 28 min 36 sec, on Eliquis [place] 5.3% S/p AVN ablation us Elyssa Ambriz BARBY CV IMPLANTABLE CARDIAC DEV ICE PROCEDURES Final Result * (ABNORMAL) Hemoglobin A1c (11/23/2023 5:15 AM EDT) Hemoglobin A1c 6.4(H) <5.7 % 11/23/2023 6:44 AM EDT [facility] Blood Venous blood specimen / Unknown Venipuncture / Unknown 11/23/2023 5:15 AM EDT 11/23/2023 5:47 AM EDT Narrative [facility] - 11/23/2023 6:44 AM EDT HA1C Interpretive Data: Diagnosis of Diabetes: Diabetic > or = 6.5% Pre-diabetic 5.7 to 6.4% Non-diabetic < or = 5.6% Glycemic Targets for Type I and Type II Diabetics: Non- Adults <7.0% Adults <6.0% Children and Adolescents <7.5% Source: [place] [employer] Association. Standards of medical care in diabetes,2017. Diabetes Care.2017:40 (suppl 1):S1-S135. HbA1c assay performed by an ion-exchange chromatography method that is certified traceable to the DCCT. us Zackary Gao MD LAB BLOOD ORDERABLES Final Result [facility] [address] [place] [address] * Hepatitis C Antibody - ED (11/22/2023 11:36 AM EDT) Hepatitis C Antibody Negative Negative 11/22/2023 12:54 PM EDT [facility] Blood Venous blood specimen / Unknown Venipuncture / Unknown 11/22/2023 11:36 AM EDT 11/22/2023 12:13 PM EDT Mono aRy MD LAB BLOOD ORDERABLES Final Result [facility] [address] [place] [address] from Last 3 Months or Most Recently Relevant to Health Maintenance Insurance MEDICARE [facility] Advance Directives * Full Code (Latest Code Status on File) Date Activated Date Inactivated Comments 11/22/2023 4:59 PM 11/23/2023 7:24 PM Question Answer Comments Patient has decision-making capacity? Yes * Full Code Date Activated Date Inactivated Comments 11/13/2022 1:33 PM 11/13/2022 6:08 PM Question Answer Comments Patient has decision-making capacity? Yes Care Teams Monorail Helper Relationship Specialty Start Date End Date Charles Barrett MD [address] [place] [id number] PCP - General 09/11/21
--- OUTSIDE RECORDS SUMMARY | 2024-11-14 16:28 | XMS_ITS | Patient Health Record ---
Author Organization [facility] Address [address] [place] [address] Care Team Providers Care Exchange Trouble Shooter Name Role Phone Fran Hamilton M.D. Primary Care Provider Unavailab VIKI Whitman Unavailable [facility] Unavailable [phone] Allergies Allergen (clinical drug ingredient) Drug/Non Drug [...] W/U Status Risk Notes Problem Orthostatic hypotension (63714248) Orthostatic hypotension (I95.1) Active confirmed Problem Palpitations (75097112) Palpitations (R00.2) Active confirmed Problem Hypertension (46895536) Hypertension (I10) Active confirmed Problem Cardiomyopathy (95381306) Cardiomyopathy (I42.9) Active confirmed Problem Aortic valve disorder (9282460) Nonrheumatic aortic valve insufficiency (I35.1) Active confirmed Problem Left ventricular diastolic dysfunction (699134469) Left ventricular diastolic dysfunction (I51.9) Active confirmed Problem Sinus node dysfunction (17649274) SSS (sick sinus syndrome) (I49.5) Active confirmed Problem Cardiac pacemaker in situ (410500484) Artificial pacemaker (Z95.0) Active confirmed Problem Old myocardial infarction (7477092) Myocardial infarction greater than 8 weeks ago (I25.2) Active confirmed Problem Bilateral atherosclerosis of arteries of lower limbs (disorder) (82058820483068155 ) Atherosclerosis of artery of both lower extremities (I70.203) Active confirmed Problem Hyperlipidemia (77786387) Hyperlipidemia (E78.5) Active confirmed Problem Coronary artery disease (90024245) Coronary artery disease (I25.10) Active confirmed Problem Atrial fibrillation (75166092) PAF (paroxysmal atrial fibrillation) (I48.0) Active confirmed Problem Cardiomegaly (8867469) Atrial enlargement, left (I51.7) Active confirmed Problem Non-rheumatic mitral regurgitation (183133108) Nonrheumatic mitral valve regurgitation (I34.0) Active confirmed Problem Overweight (260803148) Overweight (BMI 25.0-29.9) (E66.3) Active confirmed Problem Tricuspid valve regurgitation, nonrheumatic (152599795) Tricuspid valve regurgitation, nonrheumatic (I36.1) Active confirmed Problem Aortic valve disorder (4675771) 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) Active confirmed Problem Cardiac syndrome X (finding) (247910176) 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) Active confirmed Vital Signs Heart Rate 77 /min 06/30/2024 Oximetry 99 % 06/30/2024 Blood pressure diastolic 60 mm Hg 06/30/2024 Height 61 in 06/30/2024 Blood pressure systolic 110 mm Hg 06/30/2024 Weight 139 lbs 06/30/2024 BMI 26.26 kg/m2 06/30/2024 Encounters Encounter Location Date Provider Diagnosis [facility] [address] [address] 01/21/2024 VIKI MCPHERSON Coronary artery disease I25.10 [...] of artery of both lower extremities I70.203 [facility] [address] [place] [address] 06/30/2024 oCco Dias Coronary artery dise ase I25.10 ; [...] nonrheumatic I36.1 and Nonrheumatic aortic sclerosis I35.8 [facility] [address] [place] [address] 12/31/2023 VIKI ARCENIO [facility] [address] [place] [address] 01/18/2024 VIKI RG MCPHERSON [facility] [address] [place] [address] 01/18/2024 VIKIHERON RG [facility] [address] [place] [address] 02/18/2024 VIKI MCPHERSON Assessments Encounter Date Diagnosis [...] PAF (paroxysmal atrial fibrillation) (ICD-10 - I48.0) [id number] Vasc Score of 4. On AC Eliquis. Following with EP in [place] who recommended to hold Multaq and monitor on PPM Afib burden Mg++ 2.2 (06/20/2024) 01/21/2024 PAF (paroxysmal atrial fibrillation) (ICD-10 - I48.0) [id number] Vasc Score of 4. On AC Eliquis. Following with EP in [place] who recommended to hold Multaq and monitor [...] 11/2022. This is monitored by EP in [place] 06/30/2024 SSS (sick sinus syndrome) (ICD-10 - I49.5) S/P Pacemaker Implantation w/[employer] [facility]. Gen change 11/2022. This is monitored by EP in [place] 01/21/2024 Hyperlipidemia (ICD-10 - E78.5) Continue Statin [...] to the patient/family/car egiver. Coco Dias APRN, REMANUFACTURING TECHNICIAN-C Plan Of Treatment Next Appt Details Provider Name:VIKI Ruy MCPHERSON, 01/18/2025 03:00:00 PM, [address] [address], [facility], [place], [address], Insurance Providers Payer Name Payer Address Payer Phone Subscriber Number Group Number Insured Name Patient Relationship to Insured Coverage Start Date Coverage End Date Medicare of [place] / [facility] [address] [address] [place] [address] [phone] [id number] Dagmar Flores Self - [place] [address] [phone] [id number] Dagmar Flores Self - patient is the [...]
--- OUTSIDE RECORDS SUMMARY | 2024-11-14 16:28 | XMS_ITS | Patient Health Record ---
Author Organization [facility] Address [address] [place] [phone] Care Team Providers Care Fire Tender Name Role Phone Arjun Barrett Primary Care Provider Dai Avalos Unavailable [phone] Allergies Allergen (clinical drug ingredient) Drug/Non Drug [...] Interpretation:degenerative changes Performing Lab: Notes/Report: degenerative changes P-Vitamin B12 Reviewed date:11/08/2024 08:50:00 AM Interpretation:773 Performing Lab: Notes/Report: Test performed by [facility], [facility] [address] [place] [address] , [address], [place] [address] En Gutierrez MD, Adjunct Communications Faculty Member CLIA: [id number] Vitamin B12 950 044-3430 pg/mL Mammogram, Bilateral Diagnos tic (Not yet reviewed by provider) Interpretation: Performing Lab: Notes/Report: Reason For Referral No Information Medications Medication SIG (Take, Route, Frequency, Duration) Notes Start Date End Date Status ALBUTEROL HFA INHALER 200 METERED DOSES/ 8.5GM 2 INHALATIONS QID PRN *Please review for potential replacement for e-prescription and drug interaction check* Active Vitamin B-12 1000 MCG 1 tablet Orally Once a day; Duration: 30 day(s) Active Fosamax 70 MG 1 tablet 30 minutes before the first food, beverage or medicine of the day with plain water Orally 09/13/2024 Active Trelegy Ellipta 200-62.5-25 MCG/ACT 1 puff Inhalation Once a day Active Latisse 0.03 % 1 diana applied topically once a day (at bedtime) 07/19/2020 Active Atorvastatin Calcium 40 MG 1 tablet Orally Once a day Active Albuterol Sulfate (2.5 MG/3ML) 0.083% 3 ml Inhalation every 6 hrs, prn Active levETIRAcetam 500 MG 1 tab(s) orally 2 times a day; Duration: 90 days Active Vitamin B-1 250 MG 2 tablet Orally twice a day Active Lidoderm 5 % 1 patch remove after 12 hours Externally Once a day; Duration: 30 days 12/14/2023 Active Metoprolol Tartrate 25 MG 1 tablet with food Orally once a day Active Gabapentin 300 MG 1 cap(s) orally twice a day 02/12/2022 Active Carafate 1 GM 1 tab(s) orally 4 times a day (before meals and at bedtime) 07/20/2020 Active Midodrine HCl 5 MG 1 tablet Orally Twice a day Active Nebulizer/Tubing/Mout hpiece - as directed 07/30/2023 Active traMADol HCl 50 MG 1 tab(s) orally four times a day as needed 07/23/2022 Active Venlafaxine HCl 37.5 MG TAKE 1 TABLET ONCE DAILY WITH FOOD Active Zolpidem Tartrate 10 MG 1 tab(s) orally once a day (at bedtime); Duration: 30 day(s) 08/04/2023 Active Ipratropium-Albuterol 3/ 0.5/ 3 ML 3 ML TID *Please review and pick correct strength-formulati on from Pure360 options. If intended option is not shown, discontinue and re-order from Quick Search* 07/31/2021 Active Vitamin D3 50 MCG (2000 UT) 1 tab(s) orally once a day; Duration: 90 days Active NEBULIZER SET UP FOR ADULT DIRECTED *Please review for potential replacement for e-prescription and drug interaction check* 07/31/2021 Active Eliquis 5 MG 1 tablet Orally twice daily; Duration: 90 days Active Albuterol Sulfate 0.83MG/ML (2.5MG/3ML) 1 VIAL DIRECTED Q 4-6 HRS PRN PER NEBULIZER; Duration: 90 DAYS *Please review and pick correct strength-formulati on from Pure360 options. If intended option is not shown, discontinue and re-order from Quick Search* Active Omeprazole 40 MG take 1 capsule Orally Once a day Active Montelukast Sodium 10 MG TAKE 1 TABLET ONCE DAILY; Duration: 90 days Active Ranolazine ER 500 [...] (65yr and older) Unknown 11/22/2019 Administered Fluzone High Dose (65yr and older) Unknown 11/14/2024 Pending Fluzone PF Quad (6-35 months) Unknown 12/02/2021 [...] W/U Status Risk Notes Problem Coronary arteriosclerosis (96747418) ASCVD (arteriosclerotic cardiovascular disease) (I25.10) Active confirmed Problem Insomnia (358044830) Insomnia (G47.00) Active confirmed Problem Anemia (105772510) Anemia (D64.9) Active confir med Problem Asthma (180817880) Asthma (J45.909) Active conf irmed Problem Mixed anxiety and depressive disorder (004847883) Depression with anxiety (F41.8) Active confirmed Problem Seizure disorder (701413506) Seizure disorder (G40.909) Active confirmed Problem 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) Active confirmed Problem Chronic pain syndrome (343921070) Chronic pain syndrome (G89.4) Active confirmed Problem Chronic atrial fibrillation (329204608) Chronic atrial fibrillation (I48.2) Active confirmed Problem Heart disease (11425507) Heart disease, unspecified (I51.9) Active confirmed Problem Old myocardial infarction (8017948) History of [place] (myocardial infarction) (I25.2) Active confirmed Problem Cardiac pacemaker in situ (425750648) Pacemaker (Z95.0) Active confirmed Problem Primary osteoarthritis (956618371) Primary osteoarthritis involving multiple joints (M15.0) Active confirmed Problem Gastroesophageal reflux disease (690116537) Gastroesophageal reflux disease, esophagitis presence not specified (K21.9) Active confirmed Problem Dyslipidemia (455955651) Dyslipidemia (E78.5) Active confirmed Problem Transient ischemic attack (491136954) TIA (transient ischemic attack) (G45.9) Active confirmed Problem Artificial knee joint present (407104772832) Status post right knee replacement (Z96.651) Active confirmed Problem Asthma without status asthmaticus (41814783) Asthma, unspecified asthma severity, unspecified whether complicated, unspecified whether persistent (J45.909) Active confirmed Problem Diabetic peripheral neuropathy associated with type 2 diabetes mellitus (8195059747211) Type 2 diabetes mellitus with diabetic neuropathy, unspecified whether intermediate designer insulin use (E11.40) Active confirmed Problem Chronic atrial fibrillation (704861149) Chronic atrial fibrillation (I48.20) Active confirmed Vital Signs Heart Rate 72 /min 11/14/2024 Blood pressure diastolic 60 mm Hg 11/14/2024 Height 60 in 11/14/2024 Blood pressure systolic 120 mm Hg 11/14/2024 Weight 145 lbs 11/14/2024 BMI 28.32 kg/m2 11/14/2024 Encounters Encounter Location Date Provider Diagnosis [facility] [address] [place] [address] [place] [id number] 12/14/2023 Dai Avalos Hip pain M25.[address] [place] [id number] 01/05/2024 R Samy [place] W19.XXXA and Ra dial fracture S52.90XA [facility] [place] [id number] [facility] Z00.00 ; Dyslipidemia E78.5 ; Anemia D64.9 ; Osteopenia M85.80 ; Primary osteoarthritis involving multiple joints M15.0 ; Depression with anxiety F41.8 ; Chronic atrial fibrillation I48.20 ; Asthma J45.909 ; Insomnia G47.00 ; Seizure disorder G40.909 ; Type 2 diabetes mellitus with diabetic neuropathy, unspecified whether intermediate designer insulin use E11.40 ; BMI 27.0-27.9,adult Z68.27 ; Pacemaker Z95.0 and Gastroesophageal reflux disease, esophagitis presence not specified K21.9 [facility] [place] [id number] 11/01/2024 R Samy Hassanfleet Vitamin B12 deficien cy E53.8 and Syncope R55 [facility] [address] [place] [address] [place] [id number] 11/14/2024 Dai Avalos Acute bilateral low back pain without sciatica M54.50 ; Acute pain of left knee M25.562 and Acute pain of left hip M25.552 [facility] [address] [facility] [address] [place], [place] [id number] 12/14/2023 R Samy Arnold [facility] [address] [place], [place] [id number] 08/11/2024 R Samy Arnold [facility] [address] [facility] [address] [place], [place] [id number] 08/31/2024 R Samy Arnold [facility] [address] [place], [place] [id number] 09/13/2024 R Samy Arnold [facility] [address] [facility] [address] [place], [place] [id number] 11/03/2024 R Samy Arnold [facility] [address] [facility] [address] [place], [place] [id number] 11/08/2024 R Samy Arnold Assessments Encounter Date Diagnosis (ICD [...] assessment, Depression screening and Bladder control screening. 11/01/2024 Vitamin B12 deficiency (ICD-10 - E53.8) 11/01/2024 Syncope (ICD-10 - R55) She is scheduled to follow-up with cardiology for outpatient ischemic evaluation. 11/14/2024 Acute pain of left knee (ICD-10 - M25.562) 11/14/2024 Acute bilateral low back pain without sciatica (ICD-10 - M54.50) encouraged to use walker and/or cane; will call with test results 11/14/2024 Acute pain of left hip (ICD-10 - M25.552) 08/25/2024 Anemia (ICD-10 - D64.9) 08/25/2024 Osteopenia (ICD-10 - M85.80) 08/25/2024 Primary osteoarthritis involving multiple joints (ICD-10 - M15.0) 08/25/2024 Depression with anxiety (ICD-10 - F41.8) 08/25/2024 Chronic atrial fibrillation (ICD-10 - I48.20) 08/25/2024 Asthma (ICD-10 - J45.909) 08/25/2024 Insomnia (ICD-10 - G47.00) 08/25/2024 Seizure disorder (ICD-10 - G40.909) 08/25/2024 Type 2 diabetes mellitus with diabetic neuropathy, unspecified whether longterm insulin use (ICD-10 - E11.40) 08/25/2024 BMI 27.0-27.9,adult (ICD-10 - Z68.27) 08/25/2024 Pacemaker (ICD-10 - Z95.0) 08/25/2024 Gastroesophageal reflux disease, esophagitis presence not specified (ICD-10 - K21.9) Plan Of Treatment Pending Test Test Name Order Date X ray : Spine, lumbar 11/14/2024 X ray : Knee, left 11/14/2024 X ray : Hip, left 11/14/2024 X ray : Pelvis 11/14/2024 Mammogram 11/08/2024 X ray : Spine, sacrum and coccyx 025 Mammogram, Bilateral Diagnostic 11/05/19 25 Next Appt Details Provider Name:Dai Saúl ond, 11/14/2024 03:30:00 PM, [address], [place], [phone], Insurance Providers Payer Name Payer Address Payer Phone Subscriber Number Group Number Insured Name Patient Relationship to Insured Coverage Start Date Coverage End Date MEDICARE PART B [place] [id number] [place] [id number] Dagmar Flores Self - patient is the insured ABEBA HERNANDES [facility] [address] [place] [address] [phone] [id number] Dagmar Flores Self - patient is the [...] Colonoscopy/ diverticulosis/ [place] 2023 Left total knee/ [place] 2024 Left total hip/ [place] 2024 Hospitalization History Reason Date(Month/Year) [facility] - Fall- Broken Arm 12/30/2023 [facility] - syncope 10/28/2019 [facility]-syncope 10/24/2019 [facility] ER-seizure, passed out 03/2019
--- OUTSIDE RECORDS SUMMARY | 2024-11-14 16:29 | XMS_ITS | Patient Health Record ---
Author Organization [facility] Address [address] [place] [address] Care Team Providers Care Network Intelligence Analyst Name Role Phone Fran Hamilton Olegario Primary Care Provider Adi Hayes Unavailable [phone] Faby Bonilla Unavailable [phone] Allergies Allergen (clinical drug ingredient) Drug/Non Drug [...] For Referral Reason A - LTKA @ [facility] OP Diagnosis 1 Unilateral primary o steoarthritis, left knee (M17.12) Referral Organization [facility] Referring Provider First Name Adi Referring Provider Last Name Daniele Referring Provider Speciality Physician Referred Organization [facility] Referred Provider Adi Sanabria Referred Address [address],[place], [place],[address],[place] Referred Provider Specialty Orthopedic S urgery Procedure 1 TOTAL KNEE ARTHROPLA STY (61583) Procedure 2 CPTR-ASST DIR MS PX (38101) General Notes Farhana Lin 11/2023 11:07:52 AM [...] o steoarthritis, left knee (M17.12) Referral Organization [facility] Referring Provider First Name Faby Referring Provider Last Name Chad Referring Provider Speciality Nurse Hong keith Referred Provider [facility] Referred Provider Specialty Phuong s Referral Priority Routine Reason Start Outpatient LE physical therapy, ROM and anti-inflammatory modalities, 2-3 times per week, for 4-6 weeks, START on 03/09/24 Diagnosis 1 Unilateral primary o steoarthritis, left knee (M17.12) Referral Organization [facility] Referring Provider First Name Faby Referring Provider Last Name Chad Referring Provider Speciality Nurse Hong keith Referred Provider [facility] Referred Provider Specialty Physical Med icine and Rehabilitation General Notes Divina Quintana 09:47:50 AM >Called LVM to schedule OP PT evaluation., Divina Quintana 02/15/2024 01:16:32 PM >Pt called back, LVM that she wants to goto PT closer to home @ [place]. Referral Priority Routine Reason Continue Outpatient LE physical therapy, ROM and anti-inflammatory modalities, 2-3 times per week, for 4-6 weeks Diagnosis 1 Unilateral primary o steoarthritis, left knee (M17.12) Referral Organization [facility] Referring Provider First Name Faby Referring Provider Last Name Chad Referring Provider Speciality Nurse Hong keith Referred Provider [facility] Referred Provider Specialty Physical Med icine and Rehabilitation General Notes Kathi Bolton 2024 08:52:02 AM >referral faxed Referral Priority Routine Reason Patient is scheduled for a LTHA on 06/09/24. Patricio Chao. LCFR [place] Diagnosis 1 Unilateral primary o steoarthritis, left hip (M16.12) Referral Organization [facility] Referring Provider First Name Faby Referring Provider Last Name Chad Referring Provider Speciality Nurse Hong keith Referred Organization [facility] Referred Provider Adi Sanabria Referred Address [address] [address],[place],[address], Referred Provider Specialty Orthopedic S urgery Procedure 1 TOTAL HIP ARTHROPLAS TY (73822) General Notes Kathi Bolton 2024 10:24:35 AM >Member Status: Active Coverage, Relationship to Subscriber, Self, Other or Additional Payer Information, Payer: [employer] [facility] [employer] Referral Priority Routine Referral Appointment Date 06/09/2024 Reason Start Outpatient LE physical therapy, ROM and anti-inflammatory modalities, 2-3 times per week, for 4-6 weeks, START on 06/23/24 Diagnosis 1 Unilateral primary o steoarthritis, left hip (M16.12) Referral Organization [facility] Referring Provider First Name Faby Referring Provider Last Name Chad Referring Provider Speciality Nurse Hong keith Referred Provider [facility] Referred Provider Specialty Physical Med icine and Rehabilitation Referral Priority Routine Referral Appointment Date 06/03/2024 Reason [facility] 2 [facility], START 06/08/24 Physical Therapy as directed for 2 weeks post surgery, START 06/08/24 Diagnosis 1 Unilateral primary o steoarthritis, left hip (M16.12) Referral Organization [facility] Referring Provider First Name Faby Referring Provider Last Name Cahd Referring Provider Speciality Nurse Hong keith Ref[facility] Referred Provider Specialty Miscellaneou [...] osteoarthritis of the pelvic region and thigh (453877107) Unilateral primary osteoarthritis , left hip (M16.12) Active confirmed Problem Osteoarthritis of knee (419265682) Unilateral primary osteoarthritis , left knee (M17.12) Active confirmed Vital Signs Heart Rate 70 /min 04/22/2024 Height-cm 154.94 cm 07/15/2024 Blood pressure diastolic 62 mm Hg 04/22/2024 Weight-kg 61.69 kg 07/15/2024 Height 61 in 07/15/2024 Blood pressure systolic 98 mm Hg 04/22/2024 Weight 136 lbs 07/15/2024 BMI 25.69 kg/m2 07/15/2024 Encounters Encounter Location Date Provider Diagnosis [facility] [address] [address] 01/18/2024 Adi Sanabria Pain in left knee M25.562 and Unilateral primary osteoarthritis, left knee M17.12 [facility] [address] [address] 02/17/2024 Faby Chad Unilateral primary osteoarthritis, left knee M17.12 and Pain in left knee M25.562 [facility] [address] [place] [address] 02/23/2024 Faby [place] Unilateral primary osteoarthritis, left knee M17.[address] [facility] OP [address] [place] [address] 02/23/2024 Adi Sanabria Unilateral primary osteoarthritis, left knee M17.12 [facility] [place] [address] [address] 03/11/2024 Faby Chad Unilateral primary osteoarthritis, left knee M17.12 and Pain in left knee M25.562 [facility] [place] [place] [address] [address] 04/11/2024 Faby [place] Unilateral primary osteoarthritis, left knee M17.12 and Pain in left knee M25.562 [facility] [address] [address] 04/22/2024 Adi Sanabria Unilateral primary osteoarthritis, left hip M16.12 and Pain in left hip M25.552 [facility] [place] [address] [address] 05/23/2024 Faby [place] Unilateral primary osteoarthritis, left knee M17.12 ; Pain in left knee M25.562 and Unilateral primary osteoarthritis, left hip M16.12 [facility] [place] [address] [address] 06/03/2024 Faby [place] Unilateral primary osteoarthritis, left hip M16.12 and Pain in left hip M25.552 [facility] [address] [place] [address] 06/07/2024 Faby Chad Unilateral primary osteoarthritis, left hip M16.12 [facility] [address] [place] [address] 06/07/2024 Adi Sanabria Unilateral primary osteoarthritis, left hip M16.12 [facility] [address] [address] 06/24/2024 Faby [place] Unilateral primary osteoarthritis, left hip M16.12 and Pain in left hip M25.552 [facility] [place] [address] [address] 07/15/2024 Faby Chad Unilateral primary osteoarthritis, left hip M16.12 and Pain in left hip M25.552 [facility] [address] [address] 11/20/2023 Adi Sanabria [facility] [place] [address] [address] 02/29/2024 Adi Sanabria [facility] [place] [address] [address] 04/08/2024 Adi Sanabria [facility] [place] [address] [address] 2024 Adi Sanabria Assessments Encounter Date Diagnosis [...] Patient will be restricted to homebound status. [facility] will be directed to assist the patient post operatively in their home startin02/24/2024 Patient will start outpatient physical therapy at [facility] on 03/09/2024 No history of DVT or [...] Patient will be restricted to homebound status. [facility] will be directed to assist the patient post operatively in their home startin06/08/24 Patient will start outpatient physical therapy at [facility] on 06/23/24 No history of DVT or [...] Details Provider Name:Faby Bonilla, 01/18/2025 10:00:00 AM, [address], [address], Insurance Providers Payer Name Payer Address Payer Phone Subscriber Number Group Number Insured Name Patient Relationship to Insured Coverage Start Date Coverage End Date Medicare of [place] [employer] [address] [address] [place] [address] [id number] Dagmar Flores Self - patient is the insured BC[employer] [address] [place] [address] [id number] Dagmar Flores Self - patient is [...]
== END 2024-11-14 23:59 | disposition home or self-care (01) ==
LOC: RAD 16:24
PROVIDERS: PCP Family Medicine; Visit Provider Nurse Practitioner Family
DX: M46.1 Sacroiliitis, not elsewhere classified (principal); M54.50 Low back pain, unspecified; M25.552 Pain in left hip; Z96.642 Presence of left artificial hip joint
CPT/HCPCS: 72110; 72220; 73502; 73562

== ENCOUNTER 2024-11-15 12:13 | Outpatient (CLI) | payer MEDICARE, BC, SELFPAY ==
--- OUTSIDE RECORDS SUMMARY | 2023-12-14 09:15 | XMS_ITS ---
Author Organization [facility] Address 1210 [facility] [address] [place] [phone] Care Team Providers Care Gum Rolling Machine Operator Name Role Phone Arjun Barrett Primary Care Provider Dai Avalos Unavailable [phone] Allergies Allergen (clinical drug ingredient) Drug/Non Drug [...] review and pick correct strength-formulati on from [employer]Twang options. If intended option is not shown, [...] review and pick correct strength-formulati on from [employer]Twang options. If intended option is not shown, [...] [address] [place] [phone] 12/14/2023 Dai Avalos Hip pain M25.559 Assessments [...] * Dagmar FLORESaDOB: 1950 (74 yo F)Acc No.[id number]:12/14/2023 Progress Notes Patient: Dagmar TORRES Provider: LIBERTAD Connor :1950 A ge:73 Y S ex:Female Date:12/14/2023 Address:[address] Pcp:Arjun Barrett Subjective: * Chief Complaints: * [...] S out [facility]-seizure, passed out 03/2019, [facility] ER-syncope 10/24/2019, [facility] ER - syncope 10/28/2019. * Family [...] *Please review and pick correct strength-formulation from [employer] options. If intended option is not shown, [...] *Please review and pick correct strength-formulation from [employer] options. 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 * Examination: G [...] * Images: Billing Information: * Visit Code: 75375 Office Visit, Est Pt., Level 3. * Procedure Codes: 58628 PULSE OX. * Electronic signature of Anjelica Avalos APRN on 11/15/2024 at 12:19 PM EDT Sign off status: Pending * Provider: LIBERTAD Connor Date: 1 Generated for Antonio maynard/Akira/Kermitsmitting on: 0 11/15/2024 12:19 PM EDT History and Physical Notes * [...]
--- OUTSIDE RECORDS SUMMARY | 2024-01-05 06:00 | XMS_ITS ---
Author Organization [facility] Address 1210 [facility] [address] [place] [phone] Care Team Providers Care Development Technician Name Role Phone Arjun Barrett Primary Care Provider [phone] Allergies Allergen (clinical drug ingredient) Drug/Non Drug Allergy documented on EMR Reaction Allergy Type Onset Date Status hydromorphone Dilaudid Unknown Drug Allergy Act lico codeine Codeine Unknown Drug Allergy Active REASON FOR VISIT Follow Up [facility] ER - [place] Medications Medication [...] review and pick correct strength-formulati on from 2sms options. If intended option is not shown, discontinue and re-order from ScriptRx Search* Active Vitamin D3 50 MCG (2000 UT) 1 tab(s) orally once a day; Duration: 90 days Active NEBULIZER SET UP FOR ADULT DIRECTED *Please review for potential replacement for e-prescription and drug interaction check* 07/31/2021 Active Ipratropium-Albuterol 3/ 0.5/ 3 ML 3 ML TID *Please review and pick correct strength-formulati on from 2sms options. If intended option is not shown, [...] Orally Twice a day Active Vital Signs Weight 150.6 lbs 01/05/2024 Blood pressure systolic 110 mm Hg 01/05/20 24 Blood pressure diastolic 62 mm Hg 024 Heart Rate 70 /min 01/05/2024 Height 60 in 01/05/2024 BMI 29.41 kg/m2 01/05/2024 Encounters Encounter Location Date Provider Diagnosis [facility] [facility] [address] [place] [phone] 01/05/2024 Arjun Barrett Fall W19.XXXA and Radial [...] Penny FLORESalvaro LockaDOB: 1950 (74 yo F)Acc No.[id number]:01/05/2024 Progress Notes Patient: Dagmar TORRES Provider: Arjun Barrett M.D. :1950 A ge:73 Y S ex:Female Date:01/05/2024 Address:[address], [id number] Subjective: * Chief Complaints: * 1 . Follow Up [facility] ER - [place]. * HPI: [...] 05/2022. * Hospitalization/Major Diagno stic Procedure: S [facility] ER-seizure, passed out 03/2019, [facility] ER-syncope 10/24/2019, [facility] ER - syncope 10/28/2019, [facility] ER - Fall- Broken [place] 12/30/2023. [...] review and pick correct strength- formulation from Nok Nok Labsan options. If intended option is not shown, [...] *Please review and pick correct strength-formulation from [employer] G[employer] options. If intended option is not shown, [...] * Images: Billing Information: * Visit Code: 41761 Office Visit, Est Pt., Level 3. * Procedure Codes: * Electronic signature of Arjun Barrett MD on 11/15/2024 at 12:17 PM EDT Sign off status: Pending * Provider: Arjun Barrett M.D. Date: Generated for Antonio maynard/Akira/Solis on: 0 11/15/2024 12:17 PM EDT History and Physical Notes * [...]
--- OUTSIDE RECORDS SUMMARY | 2024-03-26 05:00 | XMS_ITS ---
Author Organization [facility] Address [address] [address] Care Team Providers Care Curriculum Counselor Name Role Phone Migration, Provider Unavailable Unavailable REASON FOR VISIT EMR-Julien Encounters Encounter Location Date Provider Diagnosis [facility] [address] [facility] [address] [place] [address] 03/26/2024 Provider Migration Plan Of Treatment No Information Progress Notes * IDA MOTLEY GDOB: [birth year] (74 yo F)Acc No.[id number]:03/26/2024 Patient: Scott ROMEO IDA Ruthie :1950 A ge:73 Y S ex:Female Address:[address] [place] [address] [address], [place], [address] Subjective: * Chief Complaints: * E MR-Julien * * Date:
--- OUTSIDE RECORDS SUMMARY | 2024-03-27 05:00 | XMS_ITS ---
Author Organization [facility] Address [address] [facility] [address] [place] [address] Care Team Providers Care Sharemilker Name Role Phone Migration, Provider Unavailable Unavailable Allergies Allergen (clinical drug ingredient) Drug/Non Drug Allergy documented on EMR Reaction Allergy Type Onset Date Status Hydromorphone / Dilaudid?, Palladone TM (uncoded) Unknown Allergy Active codeine Codeine Unknown Drug Allergy Active REASON FOR VISIT EMR-Julien Encounters Encounter Location Date Provider Diagnosis [facility] [address] [facility] [address] [place] [address] 03/27/2024 Provider Migration Plan Of Treatment No Information Progress Notes * IDA MOTLEY GDOB: [birth year] (74 yo F)Acc No.[id number]:03/27/2024 Patient: IDA TORRES :1950 A ge:73 Y S ex:Female Address:[address] [place] [address] [address], [place], [address] Subjective: * Chief Complaints: * E MR-Julien * Allergies: H ydromorphone / Dilaudid?, Palladone TM: AllergyCodeine: Allergy * * Date:
--- OUTSIDE RECORDS SUMMARY | 2024-05-05 08:45 | XMS_ITS ---
Author Organization [facility], [facility] Address [address] [place] [address] Care Team Providers Care Plan Rep Name Role Phone Joy PUENTES, Fran Primary Care Provider Piero Miranda MD, Negro Unavailable REASON FOR VISIT egd Encounters Encounter Location Date Provider Diagnosis [facility] [address] [place] [address] 05/05/2024 Negro Miranda Plan Of Treatment Next Appt Details Provider Name:Negro molina, 09/29/2028 11:00:00 AM, [address] [place], [address], Progress Notes * Penny FLORESena GDOB: [birth year] (74 yo F)Acc No.[id number]:05/05/2024 Patient: Dagmar TORRES Provider: Alicia Oseguera M.D :1950 A ge:73 Y S ex:Female Date:05/05/2024 Address:[address] [place], [place] [id number] Pcp:Fran Hamilton MD * Images: * Electronic signature of Catarino Miranda MD on 11/15/2024 at 12:19 PM EDT Sign off status: Pending * Provider: Alicia Oseguera M.D Date: 0 05/05/2024 Generated for Printi ng/Faxing/eTransmitting on: 0 11/15/2024 12:19 PM EDT
--- OUTSIDE RECORDS SUMMARY | 2024-06-22 05:45 | XMS_ITS ---
Author Organization [facility] Address [address] [facility] [address] [place] [address] Care Team Providers Care Tactical Response Group Officer Name Role Phone Fran Hamilton Primary Care Provider Adi Hayes [phone] REASON FOR VISIT F/U LEFT HIP Encounters Encounter Location Date Provider Diagnosis [facility] [place] [address] [address] 06/22/2024 Adi Sanabria Plan Of Treatment Next Appt Details Provider Name:Faby Bonilla, 01/18/2025 10:00:00 AM, [address] [place] [address], [place], [address], Progress Notes * Dagmar FLORES GDOB: [birth year] (74 yo F)Acc No.[id number]:06/22/2024 Progress Notes Patient: Dagmar TORRES Provider: Aaron Sanabria Jr., MD :1950 A ge:74 Y S ex:Female Date:06/22/2024 Address:[address] [place] [address] [address] , [address], [facility] Pcp:Fran Hamilton Subjective: * Chief Complaints: * 1 . F/U LEFT HIP. * Medical History: Objective: * Vitals: Assessment: Plan: * Treatment: * Billing Information: * Visit Code: * Procedure Codes: * Electronic signature of Adi Sanabria MD on 11/15/2024 at 12:20 PM EDT Sign off status: Pending * Provider: Aaron Sanabria Jr., MD Date: 0 06/22/2024 Generated for Antonio maynard/Akira/Solis on: 0 11/15/2024 12:20 PM EDT
--- OUTSIDE RECORDS SUMMARY | 2024-07-04 10:15 | XMS_ITS ---
Author Organization [facility] [place] Address [address] [address] [address] [place] [address] Care Team Providers Care Joint Cutter Machine Name Role Phone Fran Hamilton Primary Care Provider Adi Hayes Unavailable [phone] Faby Bonilla Unavailable [phone] REASON FOR VISIT LTHA, AVENIR Encounters Encounter Location Date Provider Diagnosis [facility] [place] [address] [address] 07/04/2024 Faby Bonilla Plan Of Treatment Next Appt Details Provider Name:Faby Bonilla, 01/18/2025 10:00:00 AM, [address] [address], [place], [address], Progress Notes * Dagmar FLORES GDOB: [birth year] (74 yo F)Acc No.[id number]:07/04/2024 Progress Note Patient: Dagmar TORRES Provider: Scott Bonilla APRN, FNP-C :1950 A ge:74 Y S ex:Female Date:07/04/2024 Address:[address] , [address], [place], [id number] Pcp:Fran Hamilton Subjective: * Chief Complaints: * 1 . LTHA, AVENIR. * Medical History: Objective: * Vitals: Assessment: Plan: * Treatment: * Billing Information: * Visit Code: * Procedure Codes: * Electronic signature of NAV Lux on 11/15/2024 at 12:17 PM EDT Sign off status: Pending * Provider: Scott Bonilla APRN, FNP-C Date: 0 07/04/2024 Generated for Antonio maynard/Akira/Solis on: 0 11/15/2024 12:17 PM EDT
--- OUTSIDE RECORDS SUMMARY | 2024-07-22 05:45 | XMS_ITS ---
Author Organization [facility] [place] Address [address] [facility] [address] [place] [address] Care Team Providers Care Pool Cleaner Name Role Phone Fran Hamilton Primary Care Provider Adi Hayes [phone] REASON FOR VISIT LT Hip F/U Encounters Encounter Location Date Provider Diagnosis [facility] [place] [address] [address] 07/22/2024 Adi Sanabria Plan Of Treatment Next Appt Details Provider Name:Fbay Bonilla, 01/18/2025 10:00:00 AM, [address] [address], [place], [address], Progress Notes * Dagmar FLORES GDOB: [birth year] (74 yo F)Acc No.[id number]:07/22/2024 Progress Notes Patient: Dagmar TORRES Provider: Aaron Sanabria Jr., MD :1950 A ge:74 Y S ex:Female Date:07/22/2024 Address:[address] [place] [address] [address] , [address], [id number] Pcp:Fran Hamilton Subjective: * Chief Complaints: * 1 . LT Hip F/U. * Medical History: Objective: * Vitals: Assessment: Plan: * Treatment: * Billing Information: * Visit Code: * Procedure Codes: * Electronic signature of Adi Sanabria MD on 11/15/2024 at 12:19 PM EDT Sign off status: Pending * Provider: Aaron Sanabria Jr., MD Date: 0 07/22/2024 Generated for Antonio maynard/Akira/Solis on: 0 11/15/2024 12:19 PM EDT
--- OUTSIDE RECORDS SUMMARY | 2024-08-25 07:00 | XMS_ITS ---
[facility] Address [address] [place] [phone] Care Team Providers Care Vp Genetic Name Role Phone Arjun Barrett Primary Care [...] review and pick correct strength-formulati on from [employer] options. If intended option is not shown, [...] review and pick correct strength-formulati on from [employer]IM options. If intended option is not shown, [...] Status W/U Status Risk Notes Problem Anemia (172969564) Anemia (D64.9) Active confirmed Problem Diabetic peripheral neuropathy associated with type 2 diabetes mellitus (2664371747477) Type 2 diabetes mellitus with diabetic neuropathy, unspecified whether fci insulin use (E11.40) Active confirmed Vital Signs Weight 140.6 lbs 08/25/2024 Blood pressure systolic 110 mm Hg 08/26/19 25 Blood pressure diastolic 70 mm Hg 025 Heart Rate 68 /min 08/25/2024 Height 60 in 08/25/2024 BMI 27.46 kg/m2 08/25/2024 Encounters Encounter Location Date Provider Diagnosis [facility] [address] [facility] [address] [place] [address], [place] [id number] 08/25/2024 Arjun Barrett Adult general medica l examination Z00.00 ; Dyslipidemia E78.5 ; Anemia D64.9 ; Osteopenia M85.80 ; Primary osteoarthritis involving multiple joints M15.0 ; Depression with anxiety F41.8 ; Chronic atrial fibrillation I48.20 ; Asthma J45.909 ; Insomnia G47.00 ; Seizure disorder G40.909 ; Type 2 diabetes mellitus with diabetic neuropathy, unspecified whether fci insulin use E11.40 ; BMI 27.0-27.9,adult Z68.27 [...] diabetes mellitus with diabetic neuropathy, unspecified whether contract law specialist insulin use (ICD-10 - E11.40) 08/25/2024 BMI [...] Up: 6 Months, Reason: Progress Notes * TIESHA Dagmaralvaro MosleyB: 1950 (74 yo F)Acc No.[id number]:08/25/2024 Annual Wellness Visit Patient: Dagmar TORRES Provider: Arjun Barrett M.D. :1950 A ge:74 Y S ex:Female Date:08/25/2024 Address:[address], [id number] Subjective: * Chief Complaints: * 1 . check up and Annual Wellness Visit. * HPI: H PI: Patient is here today for a scheduled check up and a Medicare Annual Wellness Visit and fasting labs. She has just returned from wintering in [place]. While in [place] she underwent left total hip and left [...] Colonoscopy/ diverticulosis/ [place] 2023, Left total knee/ [place] 2024, Left total hip/ [place] 2024. * Hospitalization/Major Diagno stic Procedure: [facility]-seizure, passed out 03/2019, [facility] ER-syncope 10/24/2019, [facility] ER - syncope 10/28/2019, [facility] ER - Fall- Broken Arm [...] review and pick correct strength- formulation from [employer] options. If intended option is not [...] *Please review and pick correct strength-formulation from [employer] options. If intended option is not [...] diabetes mellitus with diabetic neuropathy, unspecified whether contract law specialist insulin use - E11.40 1 2. B [place] 27.0-27.9,adult - Z68.27 1 3. P acemaker [...] I G# 0.01 - 10 3uL * SegunLayla 08/25/2024 1 2:22:38 PM EDT >faxed to [...] 08:1 9:51 AM EDT > faxed to [facility] SchedulingAPPT 09/08/24 @9:30Neeta Aldridge 09/13/2024 [...] * Images: Billing Information: * Visit Code: 56148 Office Visit, Est Pt., Level 3. Modifiers: [...] of Arjun Barrett MD on 11/15/2024 at 12:16 PM EDT Sign off status: Pending * Provider: Arjun Barrett M.D. Date: 0 08/25/2024 Generated for Antonio maynard/Akira/eTransmitting on: 0 11/15/2024 12:16 PM EDT History and Physical Notes * HPI (History of Present Illness) Category Sub-Category Detail Notes Category Not es HPI [facility] Medicare Annual Wellness Visit and fasting labs. She has just returned from wintering in [place]. While in [place] she underwent left total hip and left [...]
--- OUTSIDE RECORDS SUMMARY | 2024-09-17 17:30 | XMS_ITS ---
Author Organization [facility] Address [address] [address] Care Team Providers Care Medical Orderly Name Role Phone Joy PUENTES, Fran Primary Care Provider Unavailkeiry leong Jignesh Wade Unavailable [phone] Migration, Provider Unavailable Unavailable Allergies Allergen (clinical drug ingredient) Drug/Non Drug Allergy documented on EMR Reaction Allergy Type Onset Date Status hydromorphone Dilaudid Unknown Drug Allergy Act lico codeine Codeine Unknown Drug Allergy Active [facility] Encounter Medications Medication SIG (Take, Route, [...] Active Encounters Encounter Location Date Provider Diagnosis [facility] [address] [address] 09/17/2024 Provider Migration Plan Of Treatment No Information Progress Notes * IDA MOTLEY GDOB: [birth year] (74 yo F)Acc No.[id number]:09/17/2024 Patient: IDA TORRES Provider: Olegario ervin Migration :1950 A ge:74 Y S ex:Female Date:09/17/2024 Address:[address] [place] [address], [facility] Pcp:Fran Hamilton MD Subjective: * Chief Complaints: [...] Electronic signature of Prov ider Migration on 11/15/2024 at 12:17 PM EDT Sign off status: Pending * Provider: Olegario ervin Migration Date: 0 09/17/2024 Generated for Antonio maynard/Akira/Mariitting on: 0 11/15/2024 12:17 PM EDT
--- OUTSIDE RECORDS SUMMARY | 2024-10-10 15:15 | XMS_ITS | Encounter Summary ---
Author Organization Healthcare Address [address] [place] [address] Care Team Providers Care Building Consultant Name Role Phone Charles Barrett MD Primary Care Provider +1- [phone] Encounter Details Date Type Department Care Team (Latest Contact Info) Description 10/10/2024 3:15 PM EDT - 10/10/2024 11:59 PM EDT Hospital Encounter Cardiac Imaging [address] [place] [address] Pacemaker Discharge Disposition: Home or Self Care [...] often do you attend chur ch or methodist services? More than 4 times per year 11/25/2023 Do you belong to any clubs o r organizations such as holiness groups, unions, fraternal or athletic groups, or [...] Description 11/23/2024 11:40 AM EDT Office Visit [facility] [place] Greg [address] [facility]. [address] [place] [address] Indu Grimes MD [address] [place] [address] 12/08/2024 9:40 AM EDT Office Visit [facility] [place] [address] [place] [address] Sylvester Farr MD [address] [place] [address] documented as of this encounter [...] duration 28 min 36 sec, on Eliquis [place] 5.3% S/p AVN ablation Elyssa Ambriz BARBY [...] documented as of this encounter Care Teams Building Consultant Relationship Specialty Start Date End Date Charles Barrett MD [address] [place] [address] PCP - General 09/11/21 documented as of this encounter
--- OUTSIDE RECORDS SUMMARY | 2024-11-01 07:45 | XMS_ITS ---
Author Organization [facility] Address [address] [facility] [address] [place] [id number] Care Team Providers Care Wax Blender Name Role Phone Arjun Barrett Primary Care Provider Allergies Allergen (clinical drug ingredient) Drug/Non Drug Allergy documented on EMR Reaction Allergy Type Onset Date Status hydromorphone Dilaudid Unknown Drug Allergy Act lico codeine Codeine Unknown Drug Allergy Active Results Component Value Reference Range Notes P-Vitamin B12 Reviewed date:11/08/2024 08:50:00 AM Interpretation:773 Performing Lab: Notes/Report: Test performed by [employer], [employer] [address] [place] [address] , [address], [place] [address] En Gutierrez MD, Sidewalk Repairer CLIA: [id number] Vitamin B12 [phone] pg/mL REASON FOR VISIT F/U fall Medications Medication SIG (Take, Route, Frequency, Duration) Notes Start Date End Date Status Venlafaxine HCl 37.5 MG TAKE 1 TABLET ONCE DAILY WITH FOOD Active Atorvastatin Calcium 40 MG 1 tablet Orally Once a day Active Vitamin B-1 250 MG 2 tablet Orally twice a day Active Montelukast Sodium 10 MG TAKE 1 TABLET ONCE DAILY; Duration: 90 days Active Eliquis 5 MG 1 tablet Orally twice daily; Duration: 90 days Active Midodrine HCl 5 MG 1 tablet Orally Twice a day Active Ranolazine ER 500 MG 1 tablet Orally Twice a day Active Raloxifene HCl 60 MG TAKE 1 TABLET ONCE DAILY; Duration: 90 days Active Omeprazole 40 MG take 1 capsule Orally Once a day Active Fosamax 70 MG 1 tablet 30 minutes before the first food, beverage or medicine of the day with plain water Orally 09/13/2024 Active Zolpidem Tartrate 10 MG 1 tab(s) orally once a day (at bedtime); Duration: 30 day(s) 08/04/2023 Active Albuterol Sulfate (2.5 MG/3ML) 0.083% 3 ml Inhalation every 6 hrs, prn Active levETIRAcetam 500 MG 1 tab(s) orally 2 times a day; Duration: 90 days Active Lidoderm 5 % 1 patch remove after 12 hours Externally Once a day; Duration: 30 days 12/14/2023 Active Metoprolol Tartrate 25 MG 1 tablet with food Orally once a day Active Gabapentin 300 MG 1 cap(s) orally twice a day 02/12/2022 Active traMADol HCl 50 MG 1 tab(s) orally four times a day as needed 07/23/2022 Active Carafate 1 GM 1 tab(s) orally 4 times a day (before meals and at bedtime) 07/20/2020 Active Nebulizer/Tubing/Mout hpiece - as directed 07/30/2023 Active Ipratropium-Albuterol 3/ 0.5/ 3 ML 3 ML TID *Please review and pick correct strength-formulati on from [employer] options. If intended option is not shown, discontinue and re-order from Quick Search* 07/31/2021 Active Latisse 0.03 % 1 diana applied topically once a day (at bedtime) 07/19/2020 Active ALBUTEROL HFA INHALER 200 METERED DOSES/ 8.5GM 2 INHALATIONS QID PRN *Please review for potential replacement for e-prescription and drug interaction check* Active Albuterol Sulfate 0.83MG/ML (2.5MG/3ML) 1 VIAL DIRECTED Q 4-6 HRS PRN PER NEBULIZER; Duration: 90 DAYS *Please review and pick correct strength-formulati on from [employer] options. If intended option is not shown, discontinue and re-order from Quick Search* Active Vitamin D3 50 MCG (2000 UT) 1 tab(s) orally once a day; Duration: 90 days Active NEBULIZER SET UP FOR ADULT DIRECTED *Please review for potential replacement for e-prescription and drug interaction check* 07/31/2021 Active Vitamin B-12 1000 MCG 1 tablet Orally Once a day; Duration: 30 day(s) Active Trelegy Ellipta 200-62.5-25 MCG/ACT 1 puff Inhalation Once a day Active Vital Signs Weight 143.8 lbs 11/01/2024 Blood pressure systolic 112 mm Hg 11/02/19 25 Blood pressure diastolic 76 mm Hg 025 Heart Rate 70 /min 11/01/2024 Height 60 in 11/01/2024 BMI 28.08 kg/m2 11/01/2024 Encounters Encounter Location Date Provider Diagnosis [facility] [address] [place] [phone] 11/01/2024 Arjun Barrett Vitamin B12 deficien cy E53.8 and Syncope R55 Assessments Encounter Date Diagnosis (ICD Code) Assessment Notes Treatment Notes Treatment Clinical Notes Section Notes 11/01/2024 Vitamin B12 deficiency (ICD-10 - E53.8) 11/01/2024 Syncope (ICD-10 - R55) She is scheduled to follow-up with cardiology for outpatient ischemic evaluation. Plan Of Treatment Treatment Notes Assessment Notes Syncope She is scheduled to follow-up with cardiology for outpatient ischemic evaluation. Next Appt Details Follow Up: as scheduled, [place] son: Progress Notes * Damgar FLORES AshvinaDOB: 1950 (74 yo F)Acc No.[id number]:11/01/2024 Patient: Dagmar TORRES Provider: Arjun Barrett M.D. :1950 A ge:74 Y S ex:Female Date:11/01/2024 Address:[id number] Subjective: * Chief Complaints: * 1 . F/U fall. * HPI: C ardiology: He went to the emergency room on 10/26/2024 after a syncopal episode at home that was unwitnessed. She was evaluated in the ER and subsequently admitted for cardiology consultation and interrogation of her pacemaker. Apparently her workup was fairly benign and she was discharged the following day with no change in her regimen. She has felt fine since then. Please refer to hospital discharge summary for details. H PI: She is due to have a check on her B12 level. * ROS: D ERMATOLOGY: no R joaquin. [...] Colonoscopy/ diverticulosis/ [place] 2023, Left total knee/ [place] 2024, Left total hip/ [place] 2024. * Hospitalization/Major Diagno stic Procedure: S [facility] ER-seizure, passed out 03/2019, [facility] ER-syncope 10/24/2019, [facility] ER - syncope 10/28/2019, [facility] ER - Fall- Broken Arm 12/30/2023. [...] tablet Orally Once a day , Taking Vitamin B-1 250 [...] review and pick correct strength- formulation from [employer] options. If intended option is not shown, [...] *Please review and pick correct strength-formulation from [employer] options. If intended option is not shown, [...] hours Externally Once a day , Taking Metoprolol Tartrate 25 MG Tablet 1 tablet with food Orally once a day , Taking Fosamax 70 MG Tablet 1 tablet 30 minutes before the first food, beverage or medicine of the day with plain water Orally , Medication List reviewed and reconciled with the patient * Allergies: C odeine, Dilaudid. Objective: * Vitals: W t: 143.8, Temp: 97.7, BP: 112/76, HR: 70, Nurse: pe, Ht: 60, BMI:28.08. * Examination: C ardiology: General Appearance: p leasant, NAD. H EENT: u nremarkable. C arotid upstroke: n ormal, no bruits. H eart sounds: R RR, normal S1, S2.?Murmur, click , gallop: n one. L ungs: c lear, no rales or wheezes. A bdomen: positive BS, soft, nontender. E xtremities: n o leg edema. Assessment: * Assessment: 1. S yncope - R55 (Primary) 2 . V itamin B12 deficiency - E53.8 ? Plan: * Treatment: 2. V itamin B12 deficiency L AB: P-Vitamin B12 (Collection Date & Time - 11/01/2024 11:56 AM) 7 73 Value Reference Range V itamin B12 518 832-6864 - pg/mL * Arjun Barrett 11/08/2024 0 8:49:54 AM EDT > See phone encounter * Follow Up: a s scheduled * Images: Billing Information: * Visit Code: 40014 Office Visit, Est Pt., Level 3. * Procedure Codes: * Electronic signature of Arjun Barrett MD on 11/15/2024 at 12:19 PM EDT Sign off status: Pending * Provider: Arjun Barrett M.D. Date: 0 11/01/2024 Generated for Antonio maynard/Akira/[employer]olis on: 0 11/15/2024 12:19 PM EDT History and Physical Notes * HPI (History of Present Illness) Category Sub-Category Detail Notes Category Not es Cardiology He went to the emergency room on 10/26/2024 after a syncopal episode at home that was unwitnessed. She was evaluated in the ER and subsequently admitted for cardiology consultation and interrogation of her pacemaker. Apparently her workup was fairly benign and she was discharged the following day with no change in her regimen. She has felt fine since then. Please refer to hospital discharge summary for details. HPI She is due to h ave a check on her B12 level. Examination Category Sub-Category Detail Notes Category Not es Cardiology Lungs: clear, no rales or wheezes HEENT: unremarkable Heart sounds: RRR, normal S1, S2 Abdomen: positive BS, soft, n ontender Carotid upstroke: normal, no bruits Extremities: no leg edema Murmur, click , gallop: none General Appearance: pleasant, NAD
--- OUTSIDE RECORDS SUMMARY | 2024-11-14 11:30 | XMS_ITS ---
Author Organization [facility] Address [address] [facility] [address] [place] [phone] Care Team Providers Care Molding Plasterer Name Role Phone Arjun Barrett Primary Care Provider Dai Avalos Unavailable [phone] Allergies Allergen (clinical drug ingredient) Drug/Non Drug Allergy documented on EMR Reaction Allergy Type Onset Date Status hydromorphone Dilaudid Unknown Drug Allergy Act lico codeine Codeine Unknown Drug Allergy Active Results Component Value Reference Range Notes X ray : Spine, lumbar (Not y et reviewed by provider) Interpretation:multilevel DDD Performing Lab: Notes/Report: multilevel DDD X ray : Knee, left (Not yet reviewed by provider) Interpretation:?small joint effusion Performing Lab: Notes/Report: ?small joint effusion X ray : Hip, left (Not yet r eviewed by provider) Interpretation: Performing Lab: Notes/Report: X ray : Spine, sacrum and co ccyx (Not yet reviewed by provider) Interpretation: Performing Lab: Notes/Report: REASON FOR VISIT knee, hip, back from fall Medications Medication SIG (Take, Route, Frequency, Duration) Notes Start Date End Date Status Midodrine HCl 5 MG 1 tablet Orally Twice a day Active Fosamax 70 MG 1 tablet 30 minutes before the first food, beverage or medicine of the day with plain water Orally 09/13/2024 Active Ranolazine ER 500 MG 1 tablet Orally Twice a day Active Raloxifene HCl 60 MG TAKE 1 TABLET ONCE DAILY; Duration: 90 days Active Metoprolol Tartrate 25 MG 1 tablet with food Orally once a day Active Nebulizer/Tubing/Mout hpiece - as directed 07/30/2023 [...] a day; Duration: 30 days 12/14/2023 Active Carafate 1 GM 1 tab(s) orally 4 times a day (before meals and at bedtime) 07/20/2020 Active Albuterol Sulfate 0.83MG/ML (2.5MG/3ML) 1 VIAL DIRECTED Q 4-6 HRS PRN PER NEBULIZER; Duration: 90 DAYS *Please review and pick correct strength-formulati on from [employer] options. If intended option is not shown, discontinue and re-order from Quick Search* Active Ipratropium-Albuterol 3/ 0.5/ 3 ML 3 ML TID *Please review and pick correct strength-formulati on from [employer] options. If intended option is not shown, discontinue and re-order from Quick Search* 07/31/2021 Active Vitamin D3 50 MCG (2000 UT) 1 tab(s) orally once a day; Duration: 90 days Active NEBULIZER SET UP FOR ADULT DIRECTED *Please review for potential replacement for e-prescription and drug interaction check* 07/31/2021 Active ALBUTEROL HFA INHALER 200 METERED DOSES/ 8.5GM 2 INHALATIONS QID PRN *Please review for potential replacement for e-prescription and drug interaction check* Active Vitamin B-12 1000 MCG 1 tablet Orally Once a day; Duration: 30 day(s) Active Trelegy Ellipta 200-62.5-25 MCG/ACT 1 puff Inhalation Once a day Active Latisse 0.03 % 1 diana applied topically once a day (at bedtime) 07/19/2020 Active Vitamin B-1 250 MG 2 tablet Orally twice a day Active Gabapentin 300 MG 1 cap(s) orally twice a day 02/12/2022 Active Eliquis 5 MG 1 tablet Orally twice daily; Duration: 90 days Active traMADol HCl 50 MG 1 tab(s) orally four times a day as needed 07/23/2022 Active Venlafaxine HCl 37.5 MG TAKE 1 TABLET ONCE DAILY WITH FOOD Active Atorvastatin Calcium 40 MG 1 tablet Orally Once a day Active Omeprazole 40 MG take 1 capsule Orally Once a day Active Montelukast Sodium 10 MG TAKE 1 TABLET ONCE DAILY; Duration: 90 days Active Immunizations Vaccine Route Administration Date Status Comme nts Fluzone High Dose (65yr and older) IM Intramuscular 11/14/2024 Administered Vital Signs Weight 145 lbs 11/14/2024 Blood pressure systolic 120 mm Hg 11/15/19 25 Blood pressure diastolic 60 mm Hg 025 Heart Rate 72 /min 11/14/2024 Height 60 in 11/14/2024 BMI 28.32 kg/m2 11/14/2024 Encounters Encounter Location Date Provider Diagnosis [facility] [facility] 36 [facility] [address] [place] [phone] 11/14/2024 Dai Avalos Acute bilateral low back pain without sciatica M54.50 ; Acute pain of left knee M25.562 ; Acute pain of left hip M25.552 and Encounter for immunization Z23 Assessments Encounter Date Diagnosis (ICD Code) Assessment Notes Treatment Notes Treatment Clinical Notes Section Notes 11/14/2024 Acute bilateral low back pain without sciatica (ICD-10 - M54.50) encouraged to use walker and/or cane; will call with test results 11/14/2024 Acute pain of left knee (ICD-10 - M25.562) 11/14/2024 Acute pain of left hip (ICD-10 - M25.552) 11/14/2024 Encounter for immunization (ICD-10 - Z23) Plan Of Treatment Medication Medication Name Sig Start Date Stop Date Notes Gabapentin 300 MG 1 cap(s) orally twice a day 02/12/2022 traMADol HCl 50 MG 1 tab(s) orally four times a day as needed 07/23/2022 Treatment Notes Assessment Notes Acute bilateral low back hardeep n without sciatica encouraged to use walker and/or cane; wi ll call with test results Pending Test Test Name Order Date X ray : Spine, lumbar 11/14/2024 X ray : Knee, left 11/14/2024 X ray : Hip, left 11/14/2024 X ray : Pelvis 11/14/2024 X ray : Spine, sacrum and coccyx 025 Next Appt Details Follow Up: will notify of te st results, Reason: Progress Notes * Dagmar FLORESaDOB: 1950 (74 yo F)Acc No.[id number]:11/14/2024 Progress Notes Patient: Dagmar TORRES Provider: LIBERTAD Connor :1950 A ge:74 Y S ex:Female Date:11/14/2024 Address:[address] [place], [id number] Pcp:Arjun Barrett Subjective: * Chief Complaints: * 1 . Knee, hip, back from fall. * HPI: L eg: was evbaluated at [facility] and has had a FU with Dr. Barrett since the fall; she had a knee replacement and hip replacement 04/2024; her back has also been hurting. 74 year old female presents with c/o Leg pain P t states she been having knee.hip and leg pain. Pt states she fell 3 weeks ago. H PI: Patient is here today for P t states they want to get the flu shot. * ROS: D ERMATOLOGY: no R joaquin. [...] 11/2021, Total Knee Replacement 05/2022, Colonoscopy/ diverticulosis/ [place] 2023, Left total knee/ [place] 2024, Left total hip/ [place] 2024. * [facility]: [facility], [facility] ER-syncope 10/24/2019, [facility] ER - syncope 10/28/2019, [facility] ER - Fall- Broken Arm 12/30/2023. [...] *Please review and pick correct strength-formulation from [employer] options. If intended option is not shown, [...] reconciled with the patient * Allergies: C Olga truong. Objective: * Vitals: W t: 145, Temp: 97.7, BP: 120/60, HR: 72, Nurse: pe, Ht: 60, BMI:28.32. * Examination: G eneral Examination: General Appearance: N AD, alert, pleasant, Color good. H eart: R RR. L ungs: C TAB A&P. E xtremities: n o leg edema. ? H ip / Thigh: Hip joint: l eft. P alpation: t enderness on trochanteric bursa. K nee / Chun: Knee: l eft, no effusion. I nspection: n o swelling or redness. P alpation: n o tenderness on joint lines or collateral ligaments. R malachi of motion: n ormal flexion and extension. L ower back: Inspection: e xaggerated lordosis. P alpation: V ertebral spine tenderness-lumbar, sacral, and coccyx. G ait: d ifficulty with rising from the chair. R malachi of motion: d ecreased at terminal ranges with discomfort. ? Assessment: * Assessment: 1. A cute bilateral low back pain without sciatica - M54.50 (Primary) 2 . A cute pain of left knee - M25.562 3 . A cute pain of left hip - M25.552 ? 4 . E ncounter for immunization - Z23 Plan: * Treatment: ?Imaging: X ray : Hip, left (Performed Date - 11/14/2024) ?Imaging: X ray : Spine, sacrum and coccyx (Performed Date - 11/14/2024) Notes: encouraged to use walker and/or cane; will call with test results?? * Immunizations: Fluzone High Dose (65yr and older) : 0.5 mL (Route: Intramuscular) given by GARY Soni , Copy Lathe Operator on Right Deltoid (Encounter for immunization) * Procedure Codes: 9 0662 FLU VACC PRSV FREE INC ANTIG, G0008 ADMN FLU VAC NO FEE SCHED SAME DAY * Follow Up: w ill notify of test results * Images: Billing Information: * Visit Code: 70980 Office Visit, Est Pt., Level 4. * Procedure Codes: 05843 FLU VACC PRSV FREE INC ANTIG. G0008 ADMN FLU VAC NO FEE SCHED SAME DAY. * Electronic signature of Anjelica Avalos APRN on 11/15/2024 at 12:17 PM EDT Sign off status: Pending * Provider: LIBERTAD Connor Date: 0 11/14/2024 Generated for Antonio Romo/Solis on: 0 11/15/2024 12:17 PM EDT History and Physical Notes * HPI (History of Present Illness) Category Sub-Category Detail Notes Category Not es HPI Patient is here today for Pt sta diana they want to get the flu shot Leg Leg pain Pt states she be en having knee.hip and leg pain. Pt states she fell 3 weeks ago Examination Category Sub-Category Detail Notes Category Not es General Examination Heart: RRR Lungs: CTAB A&P Extremities: no leg edema General Appearance: NAD, alert, pleasant , Color good Lower back Gait: difficulty with rising from the chair Inspection: exaggerated lordosis Palpation: Vertebral spine tend erness-lumbar, sacral, and coccyx Range of motion: decreased at termina l ranges with discomfort Hip / Thigh Hip joint: left Palpation: tenderness on trocha nteric bursa Knee / Chun Palpation: no tenderness on joint lines or collateral ligaments Knee: left, no effusion Inspection: no swelling or redne ss Range of motion: normal flexion and e xtension
--- NOTE | 2024-11-15 | CA_ITS ---
APPROVED REPORT Exam: Pharmacologic Technologist: Afsaneh Cota Ht: 5 ft 1 in Wt: 144 lbs BSA: 1.64 m2 HR: 70 bpm BP: 134/70 mmHg Stress Test Details Test: Lexiscan HR Resting HR: 70 bpm Max Heart Rate (APMHR): 144.103134 bpm Max HR Achieved: 77 bpm Target HR (85% APMHR): 122.790923 bpm % of APMHR: 53.47 Recovery HR: 70 bpm BP Resting BP: 134.0/70.0 mmHg Max BP: 134.0/70.0 mmHg Recovery BP: 120.0/67.0 mmHg ECG Resting ECG: Dual paced. Stress ECG Conclusion Lungs CTA prior to exam. Symptoms: Chest pressure Arrhythmias/Ectopy: None ST-T Changes: Less than 0.[address] segment changes. Conclusion: Non-diagnostic ECG/Lexiscan. Electronically signed by : Natalia Burnham MD 11/15/2024 20:57:40
--- OUTSIDE RECORDS SUMMARY | 2024-11-15 12:16 | XMS_ITS | Encounter Summary ---
Author Organization Healthcare Address [address] [place] [place] [address] Care Team Providers Care Restaurant Host Name Role Phone Charles Barrett MD Primary Care Provider +1- [phone] Bozena Milan LPN Unavailable Unavailable Encounter Details Date Type Department Care Team (Late st Contact Info) Description 07/31/2021 Orders Only External Location [address] [place] [address] Provider, External Social History Tobacco Use Types [...] Description 11/23/2024 11:40 AM EDT Office Visit [facility] [place] [address] [facility] [address] Indu Grimes MD [address] [place] [address] 12/08/2024 9:40 AM EDT Office Visit [facility] [address] [facility] [address] Sylvester Farr MD [address] [place] [address] documented as of this encounter [...] on filedocumented in this encounter Care Teams Restaurant Host Relationship Specialty Start Date End Date Charles Barrett MD [address] [place] [address] PCP - General 09/11/21 Bozena Milan LPN TCM Nurse 11/24/23 12/24/23 documented as of this encounter
--- OUTSIDE RECORDS SUMMARY | 2024-11-15 12:16 | XMS_ITS | Encounter Summary ---
Author Organization Healthcare Address [address] [place] [address] Care Team Providers Care Manager Of Learning Name Role Phone Charles Barrett MD Primary Care Provider +1- [phone] Bozena Milan LPN Unavailable Unavailable Encounter Details Date Type Department Care Team (Late st Contact Info) Description 08/12/2021 Orders Only External Location [address] [place] [address] Provider, External Social History Tobacco [...] Description 11/23/2024 11:40 AM EDT Office Visit [facility] [place] [address] [facility]. [address] [address] Indu Grimes MD [address] [place] [address] 12/08/2024 9:40 AM EDT Office Visit [facility] [address] [facility] [address] Sylvester Farr MD [address] [place] [address] documented as of this encounter [...] filedocumented in this encounter Care Teams Manager Of Learning Relationship Specialty Start Date End Date Charles Barrett MD [address] [place] [address] PCP - General 09/11/21 Bozena Milan LPN TCM Nurse 11/24/23 12/24/23 documented as of this encounter
--- OUTSIDE RECORDS SUMMARY | 2024-11-15 12:16 | XMS_ITS | Encounter Summary ---
Author Organization Healthcare Address [address] [place] [address] Care Team Providers Care Senior Talent Management Consultant Name Role Phone Charles Barrett MD Primary Care Provider +1- [phone] Encounter Details Date Type Department Care Team [...] week 11/25/2023 How often do you attend [facility] or jew services? More than 4 times per year 11/25/2023 Do you belong to any clubs o r organizations such as sabianist groups, unions, fraternal or athletic groups, or [...] place to sleep or slept in a long-term (including now)? No 11/23/2023 Utilities Answer Date [...] Description 11/23/2024 11:40 AM EDT Office Visit [facility] [place] [address] [place] [address] Indu Grimes MD [address] [place] [address] 12/08/2024 9:40 AM EDT Office Visit [facility] [place] [address] [facility] [place] [address] Sylvester Farr MD [address] [place] [address] documented as of this encounter Visit Diagnoses Not on filedocumented in this encounter Additional Health Concerns Assessment Noted Time A fall risk assessment has been complete d for the patient 01/07/2024 11:10 AM EDT A Body Mass Index follow-up plan has been documented for the patient 01/07/2024 11:52 AM EDT documented as of this encounter Care Teams Senior Talent Management Consultant Relationship Specialty Start Date End Date Charles Barrett MD [address] [place] [address] PCP - General 09/11/21 documented as of this encounter
--- OUTSIDE RECORDS SUMMARY | 2024-11-15 12:17 | XMS_ITS | Patient Health Record ---
Author Organization [facility] Address [address] [address] Care Team Providers Care Duty Manager Name Role Phone Migration, Provider Unavailable Unavailable Reason For Referral No Information Encounters Encounter Location Date Provider Diagnosis [facility] [address] [address] 03/26/2024 Provider Migration [facility] [address] [address] 03/27/2024 Provider Migration Plan Of Treatment No Information Insurance Providers Payer Name Payer Address Payer Phone Subscriber Number Group Number Insured Name Patient Relationship to Insured Coverage Start Date Coverage End Date [facility] [address] [place] [address] [id number] TIESHA IDA Self - patient is the insured 9 6 Medicare Part B [address] [place] [id number] TIESHAANTONIIDA Self - patient is the insured 9 6
--- OUTSIDE RECORDS SUMMARY | 2024-11-15 12:18 | XMS_ITS | Patient Health Record ---
Author Organization [facility] Address [address] [place] [id number] Care Team Providers Care Stereo Operator Name Role Phone Arjun Barrett Primary Care Provider Dai Avalos Unavailable [phone] Allergies Allergen (clinical drug ingredient) Drug/Non Drug [...] Performing Lab: Notes/Report: X ray : Spine, lumbar (Not y [...] reviewed by provider) Interpretation: Performing Lab: Notes/Report: P-Vitamin B12 Reviewed date:11/08/2024 08:50:00 AM Interpretation:773 Performing Lab: Notes/Report: Test performed by [facility] [address] [place] [address] , [address], [place] [address] En Gutierrez MD, Vascular Technologist Sonographer CLIA: [id number] Vitamin B12 946 247-6258 pg/mL X ray : Pelvis Reviewed date:12/21/2023 10:54:50 AM Interpretation:see hip x-ray Performing Lab: Notes/Report: see hip x-ray X ray : Hip, left Reviewed date:12/15/2023 09:09:34 AM Interpretation:degenerative changes Performing Lab: Notes/Report: degenerative changes X ray : Spine, lumbosacral Reviewed date:12/15/2023 09:09:25 AM Interpretation:degenerative changes Performing Lab: Notes/Report: degenerative changes Mammogram, Bilateral Diagnos tic (Not yet reviewed [...] review and pick correct strength-formulati on from [employer] options. If intended option is not shown, [...] review and pick correct strength-formulati on from [employer] options. If intended option is not shown, [...] Administered Fluzone High Dose (65yr and older) IM Intramuscular 11/14/2024 Administered COVID 19 Pfizer Unknown 03/17/2020 Administered COVID 19 Pfizer Unknown 04/09/2020 Administered COVID 19 Pfizer Unknown 10/31/2020 Administered Problems Problem Type SNOMED Code ICD Code Onset Dates Problem Status W/U Status Risk Notes Problem Coronary arteriosclerosis (63550923) ASCVD (arteriosclerotic cardiovascular disease) (I25.10) Active confirmed Problem Insomnia (549195327) Insomnia (G47.00) Active confirmed Problem Anemia (817781992) Anemia (D64.9) Active confir med Problem Asthma (371638613) Asthma (J45.909) Active conf irmed Problem Mixed anxiety and depressive disorder (810960457) Depression with anxiety (F41.8) Active confirmed Problem Seizure disorder (646492484) Seizure disorder (G40.909) Active confirmed Problem 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 (3388501) 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) Active confirmed Problem Chronic pain syndrome (912257610) Chronic pain syndrome (G89.4) Active confirmed Problem Chronic atrial fibrillation (732962021) Chronic atrial fibrillation (I48.2) Active confirmed Problem Heart disease (69240066) Heart disease, unspecified (I51.9) Active confirmed Problem Old myocardial infarction (8650293) History of IN (myocardial infarction) (I25.2) Active confirmed Problem Cardiac pacemaker in situ (597383224) Pacemaker (Z95.0) Active confirmed Problem Primary osteoarthritis (008016940) Primary osteoarthritis involving multiple joints (M15.0) Active confirmed Problem Gastroesophageal reflux disease (817914064) Gastroesophageal reflux disease, esophagitis presence not specified (K21.9) Active confirmed Problem Dyslipidemia (356981037) Dyslipidemia (E78.5) Active confirmed Problem Transient ischemic attack (399029960) TIA (transient ischemic attack) (G45.9) Active confirmed Problem Artificial knee joint present (462482478975) Status post right knee replacement (Z96.651) Active confirmed Problem Asthma without status asthmaticus (19856852) Asthma, unspecified asthma severity, unspecified whether complicated, unspecified whether persistent (J45.909) Active confirmed Problem Diabetic peripheral neuropathy associated with type 2 diabetes mellitus (7065657804639) Type 2 diabetes mellitus with diabetic neuropathy, unspecified whether custodial insulin use (E11.40) Active confirmed Problem Chronic atrial fibrillation (788254373) Chronic atrial fibrillation (I48.20) Active confirmed Vital Signs Heart Rate 72 /min 11/14/2024 Blood pressure diastolic 60 mm Hg 11/14/2024 Height 60 in 11/14/2024 Blood pressure systolic 120 mm Hg 11/14/2024 Weight 145 lbs 11/14/2024 BMI 28.32 kg/m2 11/14/2024 Encounters Encounter Location Date [facility] [address] [id number] 12/14/2023 Dai Avalos Hip pain M25.559 [facility] [address] [id number] 01/05/2024 [facility] Fall W19.XXXA and Ra dial fracture S52.90XA [facility] [address] [address] [id number] 08/25/2024 [facility] Adult general medica l examination Z00.00 ; Dyslipidemia E78.5 ; Anemia D64.9 ; Osteopenia M85.80 ; Primary osteoarthritis involving multiple joints M15.0 ; Depression with anxiety F41.8 ; Chronic atrial fibrillation I48.20 ; Asthma J45.909 ; Insomnia G47.00 ; Seizure disorder G40.909 ; Type 2 diabetes mellitus with diabetic neuropathy, unspecified whether custodial insulin use E11.40 ; BMI 27.0-27.9,adult Z68.27 ; Pacemaker Z95.0 and Gastroesophageal reflux disease, esophagitis presence not specified K21.9 [facility] [address] [place] [id number] 11/01/2024 R Samy Arnold Vitamin B12 deficien cy E53.8 and Syncope R55 [facility] [address] [place], [place] [id number] 11/14/2024 Dai Avalos Acute bilateral low back pain without sciatica M54.50 ; Acute pain of left knee M25.562 ; Acute pain of left hip M25.552 and Encounter for immunization Z23 [facility] [address] [place], [place] [id number] 12/14/2023 R Samy Arnold [facility] [address] [place], [place] [id number] 08/11/2024 R Samy Arnold [facility] [address] [facility] [address] [place], [place] [id number] 08/31/2024 R Samy Arnold [facility] [address] [place], [place] [id number] 09/13/2024 R Samy Arnold [facility] [address] [place], [place] [id number] 11/03/2024 R Samy Arnold [facility] [address] [facility] [address] [place], [place] [id number] 11/08/2024 R Samy Arnold Assessments Encounter Date [...] - D64.9) 08/25/2024 Osteopenia (ICD-10 - M85.80) 11/14/2024 Encounter for immunization (ICD-10 - Z23) 08/25/2024 Primary osteoarthritis involving multiple joints (ICD-10 - M15.0) 08/25/2024 Depression with anxiety (ICD-10 - F41.8) 08/25/2024 Chronic atrial fibrillation (ICD-10 - I48.20) 08/25/2024 Asthma (ICD-10 - J45.909) 08/25/2024 Insomnia (ICD-10 - G47.00) 08/25/2024 Seizure disorder (ICD-10 - G40.909) 08/25/2024 Type 2 diabetes mellitus with diabetic neuropathy, unspecified whether custodial insulin use (ICD-10 - E11.40) 08/25/2024 BMI [...] coccyx 025 Mammogram, Bilateral Diagnostic 11/05/19 25 Insurance Providers Payer Name Payer Address Payer Phone Subscriber Number Group Number Insured Name Patient Relationship to Insured Coverage Start Date Coverage End Date MEDICARE PART B [address] [address] [place] [address] [id number] Dagmar Flores Self - patient is the insured [employer] [address] [place] [address] [phone] [id number] Dagmar Flores Self - patient is the [...] Colonoscopy/ diverticulosis/ [place] 2023 [place] knee/ [place] 2024 Left total hip/ [place] 2024 Hospitalization History Reason Date(Month/Year) [facility] ER - Fall- Broken Arm 12/30/2023 [facility] ER - syncope 10/28/2019 [facility] ER-syncope 10/24/2019 [facility] ER-seizure, passed out 03/2019
--- OUTSIDE RECORDS SUMMARY | 2024-11-15 12:18 | XMS_ITS | Patient Health Record ---
Author Organization [employer], [facility] Address [address] [place] [address] Care Team Providers Care Waistline Joiner Lockstitch Name Role Phone Joy PUENTES, Fran Primary Care Provider Piero Miranda MD, [facility] Unavailable [phone] Allergies Allergen (clinical drug ingredient) Drug/Non Drug [...] Anemia due to chronic blood loss (disorder) (001200347) Iron deficiency anemia secondary to blood loss (chronic) (D50.0) 05/03/19 Active confirmed Problem Gastro-esophageal reflux disease without esophagitis (295699860) Gastro-esophag eal reflux disease without esophagitis (K21.9) 06/01/19 Active confirmed Problem Gastroduodenitis (208943930) Gastritis, unspecified, without bleeding (K29.70) 06/01/19 Active confirmed Problem Heartburn (78913467) Heartburn (R12) 05/03/19 Active confirmed Problem Dysphagia (53210213) Dysphagia, unspecified (R13.10) 06/01/19 Active confirmed Problem History of bariatric surgical procedure (639406283) Bariatric surgery status (Z98.84) 06/01/19 Active confirmed Vital Signs Heart Rate 80 /min 05/31/2024 Blood pressure diastolic 77 mm Hg 05/31/2024 Height 61 in 05/03/2024 Blood pressure systolic 140 mm Hg 05/31/2024 Weight 145 lbs 05/31/2024 BMI 27.39 kg/m2 05/03/2024 Procedures Procedure Date Ordered Date Performed Result Body Sit e EGD 05/03/2024 N/A Encounters Encounter Location Date Provider Diagnosis [facility] [address] [place] [address] 05/05/2024 Negro Hamiltontracy [facility], [facility] [address] [place] [address] 05/03/2024 Negro Miranda Iron deficiency anemia secondary to blood loss (chronic) D50.0 and Heartburn R12 [facility], [facility] [address] [place] [address] 05/31/2024 Negrotom Villasenortracy Gastro-esophageal reflux disease without [...] foods. Also discussed with the patient the meterman side effects of PPI use which include [...] foods. Also discussed with the patient the meterman side effects of PPI use which include [...] 09/29/2028 11:00:00 AM, [address], [place], [id number], Insurance Providers Payer Name Payer Address Payer Phone Subscriber Number Group Number Insured Name Patient Relationship to Insured Coverage Start Date Coverage End Date MEDICARE [address] [place] [address] [id number] Sandra, Dagmar Self - patient is the insured [facility] ([facility]) [address] [place] [address] [id number] Dagmar Flores Self - patient is the [...]
--- OUTSIDE RECORDS SUMMARY | 2024-11-15 12:18 | XMS_ITS | Clinical Summary ---
Author Organization [facility] Address [address] [place] [address] Care Team Providers Care Pipe Layer Helper Name Role Phone Charles Barrett MD Primary Care Provider [phone]- [phone] Allergies Active Allergy Reactions Criticality Noted Date [...] virus 12/10/2023 Facet arthropathy 12/10/2023 History of TX (myocardial infarction) 12/10/2023 Lumbar spondylosis 12/10/2023 Status [...] joint prosth esis 04/02/2023 Current use of director long term care anticoagulation 023 Pacemaker generator end of life 11/12/2022 Osteoarthritis of right knee 05/27/2022 Arthritis of right knee 05/22/2022 Overview (12/03/2023): Added automatically from request for surgery [id number] 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 Overview (07/14/2024): Unilateral primary [...] (11/06/2021): Added automatically from request for surgery [id number] SSS (sick sinus syndrome) 09/30/2021 Hypotension, unspecified [...] Acute diastolic heart failure 08/28/2021 08/28/2021 Old TX (myocardial infarction) 08/28/2021 08/07/2022 Encounters Date Type Department Care Team Description 10/10/2024 3:15 PM EDT - 10/10/2024 11:59 PM EDT Hospital Encounter Cardiac Imaging [address] [place] [address] Pacemaker Discharge Disposition: Home or Self Care [...] do you attend [facility] or bud[facility]ism services? More than 4 times per year 11/25/2023 Do you belong to any clubs o r organizations such as episcopal groups, unions, fraternal or athletic groups, or [...] Description 11/23/2024 11:40 AM EDT Office Visit [facility] [address] [place] [address] Indu Grimes MD [address] [place] [address] 12/08/2024 9:40 AM EDT Office Visit [facility] [address] [place] [address] Sylvester Farr MD [address] [place] [address] Health Maintenance Due Date Last Done Comments [facility]-Bone Density Scan 1950 [facility]-Medicare Annual Wellness (AWV) 1950 [facility]-Infant/Child/Adol SDOH Screenings 1950 Diabetes: Dental Exam 1960 [facility]-Zoster Vaccines (2 of 3) 12/06/2008 10/11/2008 [facility]-RSV Vaccine: 60+ Years or (1 - 1-dose 75+ series) 06/22/2023 [facility]- SDOH Screenings 05/22/2024 [facility]-Adult SDOH Screenings 05/22/2024 11/23/2023 [facility]-Diabetes: Hemoglobin A1C 05/22/2024 11/23/2023 EPU-NUMYD-60 Vaccine (9 - Pfizer risk 2023- season) [...] this topic Medical Devices Implanted Type Area Hood Fitter Device Identifier Shelf Expiration Date Model / Serial / Lot Pacemaker Assurity Mri Dr - [id number] Implanted:Qty: 1 on 11/13/2022 by Indu Grimes MD at [facility] [id number] 03/08/2024 [id number] / [id number] Envelope Tyrx Pm Medium - [id number] Implanted:Qty: 1 on 11/13/2022 by Indu Grimes MD at [facility] [id number] 08/02/2023 [id number] / [id number] Procedures Procedure Name Priority Date/Time Associated Diagnosis [...] duration 28 min 36 sec, on Eliquis [facility] 5.3% S/p AVN ablation us Elyssa Ambriz BARBY CV IMPLANTABLE CARDIAC DEV ICE PROCEDURES Final Result * (ABNORMAL) Hemoglobin A1c (11/23/2023 5:15 AM EDT) Hemoglobin A1c 6.4(H) <5.7 % 11/23/2023 6:44 AM EDT [facility] Blood Venous blood specimen / Unknown Venipuncture / Unknown 11/23/2023 5:15 AM EDT 11/23/2023 5:47 AM EDT Narrative [facility] - 11/23/2023 6:44 AM EDT HA1C Interpretive Data: Diagnosis of Diabetes: Diabetic > or = 6.5% Pre-diabetic 5.7 to 6.4% Non-diabetic < or = 5.6% Glycemic Targets for Type I and Type II Diabetics: Non- Adults <7.0% Adults <6.0% Children and Adolescents <7.5% Source: [place] [employer]. Standards of medical care in diabetes,2017. Diabetes Care.2017:40 (suppl 1):S1-S135. HbA1c assay performed by an ion-exchange chromatography method that is certified traceable to the DCCT. us Zackary Gao MD LAB BLOOD ORDERABLES Final Result [facility] [address] [place] [address] * Hepatitis C Antibody - ED (11/22/2023 11:36 AM EDT) Hepatitis C Antibody Negative Negative 11/22/2023 12:54 PM EDT [facility] Blood Venous blood specimen / Unknown Venipuncture / Unknown 11/22/2023 11:36 AM EDT 11/22/2023 12:13 PM EDT Mono Ray MD LAB BLOOD ORDERABLES Final Result [facility] [address] [place] [address] from Last 3 Months or Most Recently Relevant to Health Maintenance Insurance MEDICARE [facility] Advance Directives * Full Code (Latest Code Status on File) Date Activated Date Inactivated Comments 11/22/2023 4:59 PM 11/23/2023 7:24 PM Question Answer Comments Patient has decision-making capacity? Yes * Full Code Date Activated Date Inactivated Comments 11/13/2022 1:33 PM 11/13/2022 6:08 PM Question Answer Comments Patient has decision-making capacity? Yes Care Teams Pipe Layer Helper Relationship Specialty Start Date End Date Charles Barrett MD [address] [place] [address] PCP - General 09/11/21
--- OUTSIDE RECORDS SUMMARY | 2024-11-15 12:19 | XMS_ITS | Patient Health Record ---
Author Organization [facility] Address [address] [address] Care Team Providers Care Bilingual Hr Generalist Name Role Phone Joy PUENTES, Fran Primary Care Provider UnavailWade Lamb Unavailable [phone] Migration, Provider Unavailable Unavailable Allergies Allergen (clinical [...] Active Encounters Encounter Location Date Provider Diagnosis [facility] [address] [facility] [address] [place] [address] 09/17/2024 Provider Migration Plan Of Treatment No Information Insurance Providers Payer Name Payer Address Payer Phone Subscriber Number Group Number Insured Name Patient Relationship to Insured Coverage Start Date Coverage End Date Medicare Part B [address] [place] [address] [id number] IDA MOTLEY Self - patient is the insured [address] [facility] [address] [place] [address] [id number] ROSY MOTLEY Spouse - patient is the spouse of the insured 5 Medical (General) History Medical History History ICD Code Angina Atrial Fibrillation fractures Esophageal reflux heart murmur Hyperlipidemia pneumonia Respiratory Disease Arthritis Bronchitis Type II diabetes Congestive Heart Failure Edema heart disease Seizures ulcers Surgical History Surgery Date(Month/Year) bariatic surgery Tonsillectomy Appendectomy Hysterectomy Pacemaker
--- OUTSIDE RECORDS SUMMARY | 2024-11-15 12:19 | XMS_ITS | Patient Health Record ---
Author Organization [facility] Address [address] [place] [address] Care Team Providers Care Cork Wirer Name Role Phone Fran Hamilton M.D. Primary Care Provider Unavailab VIKI Whitman Unavailable [facility] Unavailable [phone] Allergies Allergen (clinical drug ingredient) Drug/Non Drug [...] W/U Status Risk Notes Problem Orthostatic hypotension (21169271) Orthostatic hypotension (I95.1) Active confirmed Problem Palpitations (87806453) Palpitations (R00.2) Active confirmed Problem Hypertension (51958334) Hypertension (I10) Active confirmed Problem Cardiomyopathy (39326995) Cardiomyopathy (I42.9) Active confirmed Problem Aortic valve disorder (9156104) Nonrheumatic aortic valve insufficiency (I35.1) Active confirmed Problem Left ventricular diastolic dysfunction (166705335) Left ventricular diastolic dysfunction (I51.9) Active confirmed Problem Sinus node dysfunction (73198881) SSS (sick sinus syndrome) (I49.5) Active confirmed Problem Cardiac pacemaker in situ (904098968) Artificial pacemaker (Z95.0) Active confirmed Problem Old myocardial infarction (0892926) Myocardial infarction greater than 8 weeks ago (I25.2) Active confirmed Problem Bilateral atherosclerosis of arteries of lower limbs (disorder) (74788222388291942 ) Atherosclerosis of artery of both lower extremities (I70.203) Active confirmed Problem Hyperlipidemia (77202584) Hyperlipidemia (E78.5) Active confirmed Problem Coronary artery disease (46193658) Coronary artery disease (I25.10) Active confirmed Problem Atrial fibrillation (58357687) PAF (paroxysmal atrial fibrillation) (I48.0) Active confirmed Problem Cardiomegaly (2477447) Atrial enlargement, left (I51.7) Active confirmed Problem Non-rheumatic mitral regurgitation (318006523) Nonrheumatic mitral valve regurgitation (I34.0) Active confirmed Problem Overweight (094922327) Overweight (BMI 25.0-29.9) (E66.3) Active confirmed Problem Tricuspid valve regurgitation, nonrheumatic (065160213) Tricuspid valve regurgitation, nonrheumatic (I36.1) Active confirmed Problem Aortic valve disorder (5321985) 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) Active confirmed Problem Cardiac syndrome X (finding) (015619256) 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) Active confirmed Vital Signs Heart Rate 77 /min 06/30/2024 Oximetry 99 % 06/30/2024 Blood pressure diastolic 60 mm Hg 06/30/2024 Height 61 in 06/30/2024 Blood pressure systolic 110 mm Hg 06/30/2024 Weight 139 lbs 06/30/2024 BMI 26.26 kg/m2 06/30/2024 Encounters Encounter Location Date Provider Diagnosis [facility] [address] [address] 01/21/2024 VIKI MCPHERSON Coronary artery disease I25.10 [...] of artery of both lower extremities I70.203 [facility] [address] [place] [address] 06/30/2024 Coco Dias Coronary artery dise ase [...] nonrheumatic I36.1 and Nonrheumatic aortic sclerosis I35.8 [facility] [address] [place] [address] 12/31/2023 VIKI ARCENIO [facility] [address] [place] [address] 01/18/2024 VIKI RG MCPHERSON [facility] [address] [place] [address] 01/18/2024 VIKIHERON RG [facility] [address] [place] [address] 02/18/2024 VIKI MCPHERSON Assessments Encounter Date Diagnosis [...] PAF (paroxysmal atrial fibrillation) (ICD-10 - I48.0) [id number] Vasc Score of 4. On AC Eliquis. Following with EP in [place] who recommended to hold Multaq and monitor on PPM Afib burden Mg++ 2.2 (06/20/2024) 01/21/2024 PAF (paroxysmal atrial fibrillation) (ICD-10 - I48.0) [id number] Vasc Score of 4. On AC Eliquis. Following with EP in [place] who recommended to hold Multaq and monitor [...] 11/2022. This is monitored by EP in [place] 06/30/2024 SSS (sick sinus syndrome) (ICD-10 - I49.5) S/P Pacemaker Implantation w/[facility]. Gen change 11/2022. This is monitored by EP in [place] 01/21/2024 Hyperlipidemia (ICD-10 - E78.5) Continue Statin [...] to the patient/family/car egiver. Coco Dias APRN, PNEUMATIC PRESS HAND-C Plan Of Treatment Next Appt Details Provider Name:VIKI Ruy MCPHERSON, 01/18/2025 03:00:00 PM, [address] [address], [facility] [address], [place], [address], Insurance Providers Payer Name Payer Address Payer Phone Subscriber Number Group Number Insured Name Patient Relationship to Insured Coverage Start Date Coverage End Date Medicare of [place] / [facility] [address] [address] [place] [address] [id number] Dagmar Flores Self - [place] [address] [id number] Dagmar Flores Self - patient is the [...]
--- OUTSIDE RECORDS SUMMARY | 2024-11-15 12:19 | XMS_ITS | Clinical Summary ---
Author Organization [facility] Address [address] [place] [address] Care Team Providers Care Classifier Name Role Phone Charles Barrett MD Primary [...] Payer (Ef fective 1998-Present) Name:Dagmar Flores Member ID:[id number] Relation to Subscriber:Self Name:Dagmar Flores Subscriber ID:[id number] Payer ID:[id number] Group ID:Not on file Type:Not on file Address: [facility] [id number] [address] [employer] [place] Care Teams Classifier Relationship Specialty Start Date End Date Charles Barrett MD [facility] [address] [facility] [address] [place] [address] PCP - General Family Medicine 11/01/18
--- OUTSIDE RECORDS SUMMARY | 2024-11-15 12:20 | XMS_ITS | Clinical Summary ---
Author Organization [facility] Address [address] [facility], [address] [place] [address] Care Team Providers Care Manufacturing Tech Name Role Phone Charles Barrett MD Primary Care Provider +1- [phone] Social History Tobacco Use Types Packs/Day Years [...] Insurance MEDICARE [place] F[place] Care Teams Manufacturing Tech Relationship Specialty Start Date End Date Charles Barrett MD [address] [facility] [address] [facility] [address] [place] [address] PCP - General 06/09/19
--- OUTSIDE RECORDS SUMMARY | 2024-11-15 12:20 | XMS_ITS | Patient Health Record ---
Author Organization [facility] Address [address] [place] [address] Care Team Providers Care Lab Courier Name Role Phone Fran Hamilton Olegario Primary Care Provider Adi Hayes Unavailable [phone] Faby Bonilla Unavailable [phone] Allergies Allergen (clinical drug ingredient) Drug/Non Drug [...] For Referral Reason A - [facility] @ [facility] Diagnosis 1 Unilateral primary o steoarthritis, left knee (M17.12) Referral Organization [facility] Referring Provider First Name Adi Referring Provider Last Name Daniele Referring Provider Speciality Physician Referred Organization [facility] Referred Provider Adi Sanabria Referred Address [address],[place], [place],[address],[place] Referred Provider Specialty Orthopedic S urgery Procedure 1 TOTAL KNEE ARTHROPLA STY (79383) Procedure 2 CPTR-ASST DIR MS PX (38448) General Notes Farhana Lin 11/2023 11:07:52 AM [...] o steoarthritis, left knee (M17.12) Referral Organization [facility] Referring Provider First Name Faby Referring Provider Last Name Chad Referring Provider Speciality Nurse Hong keith Referred Provider [facility] Referred Provider Specialty Phuong s Referral Priority Routine Reason Start Outpatient LE physical therapy, ROM and anti-inflammatory modalities, 2-3 times per week, for 4-6 weeks, START on 03/09/24 Diagnosis 1 Unilateral primary o steoarthritis, left knee (M17.12) Referral Organization [facility] Referring Provider First Name Faby Referring Provider Last Name Chad Referring Provider Speciality Nurse Hong keith Referred Provider [facility] Referred Provider Specialty Physical Med icine and Rehabilitation General Notes Divina Quintana 09:47:50 AM >Called LVM to schedule OP PT evaluation., Divina Quintana 02/15/2024 01:16:32 PM >Pt called back, LVM that [place] Referral Priority Routine Reason Continue Outpatient LE physical therapy, ROM and anti-inflammatory modalities, 2-3 times per week, for 4-6 weeks Diagnosis 1 Unilateral primary o steoarthritis, left knee (M17.12) Referral Organization [facility] Referring Provider First Name Faby Referring Provider Last Name Chad Referring Provider Speciality Nurse Hong keith Referred Provider [facility] Referred Provider Specialty Physical Med icine and Rehabilitation General Notes Kathi Bolton 2024 08:52:02 AM >referral faxed Referral Priority Routine Reason Patient is scheduled for a LTHA on 06/09/24. Patricio Chao. LCFR [place] Diagnosis 1 Unilateral primary o steoarthritis, left hip (M16.12) Referral Organization [facility] Referring Provider First Name Faby Referring Provider Last Name Chad Referring Provider Speciality Nurse Hong keith Referred Organization [facility] Referred Provider Adi Sanabria Referred Address [address] [address],[place], [place],[address], Referred Provider Specialty Orthopedic S urgery Procedure 1 TOTAL HIP ARTHROPLAS TY (14467) General Notes Kathi Bolton 2024 10:24:35 AM >Member Status: Active Coverage, Relationship to Subscriber, Self, Other or Additional Payer Information, Payer: BLUE CROSS BLUE [facility] Referral Priority Routine Referral Appointment Date 06/09/2024 Reason Start Outpatient LE physical therapy, ROM and anti-inflammatory modalities, 2-3 times per week, for 4-6 weeks, START on 06/23/24 Diagnosis 1 Unilateral primary o steoarthritis, left hip (M16.12) Referral Organization [facility] Referring Provider First Name Faby Referring Provider Last Name Chad Referring Provider Speciality Nurse Hong keith Referred Provider [facility] Referred Provider Specialty Physical Med icine and Rehabilitation Referral Priority Routine Referral Appointment Date 06/03/2024 Reason [facility] 2 weeks post [facility], START 06/08/24 Physical Therapy as directed for 2 weeks post surgery, START 06/08/24 Diagnosis 1 Unilateral primary o steoarthritis, left hip (M16.12) Referral Organization [facility] Referring Provider First Name Faby Referring Provider Last Name Chad Referring Provider Speciality Nurse Hong keith Ref[facility] Referred Provider Specialty Miscellaneou s [...] osteoarthritis of the pelvic region and thigh (239260157) Unilateral primary osteoarthritis , left hip (M16.12) Active confirmed Problem Osteoarthritis of knee (997471886) Unilateral primary osteoarthritis , left knee (M17.12) Active confirmed Vital Signs Heart Rate 70 /min 04/22/2024 Height-cm 154.94 cm 07/15/2024 Blood pressure diastolic 62 mm Hg 04/22/2024 Weight-kg 61.69 kg 07/15/2024 Height 61 in 07/15/2024 Blood pressure systolic 98 mm Hg 04/22/2024 Weight 136 lbs 07/15/2024 BMI 25.69 kg/m2 07/15/2024 Encounters Encounter Location Date Provider Diagnosis [facility] [address] [address] 01/18/2024 Adi Sanabria Pain in left knee M25.562 and Unilateral primary osteoarthritis, left knee M17.12 [facility] [place] [address] [address] 02/17/2024 Faby Chad Unilateral primary osteoarthritis, left knee M17.12 and Pain in left knee M25.562 [facility] [address] [place] [address] 02/23/2024 Faby Anabel Unilateral primary osteoarthritis, left knee M17.12 [facility] [address] [place] [address] 02/23/2024 Adi Sanabria Unilateral primary osteoarthritis, left knee M17.12 [facility] [place] [address] [address] 03/11/2024 Faby Chad Unilateral primary osteoarthritis, left knee M17.12 and Pain in left knee M25.562 [facility] [place] [address] [address] 04/11/2024 Faby Anabel Unilateral primary osteoarthritis, left knee M17.12 and Pain in left knee M25.562 [facility] [address] [address] 04/22/2024 Adi Sanabria Unilateral primary osteoarthritis, left hip M16.12 and Pain in left hip M25.552 [facility] [place] [address] [address] 05/23/2024 Faby Anabel Unilateral primary osteoarthritis, left knee M17.12 ; Pain in left knee M25.562 and Unilateral primary osteoarthritis, left hip M16.12 [facility] [place] [address] [address] 06/03/2024 Faby Anabel Unilateral primary osteoarthritis, left hip M16.12 and Pain in left hip M25.552 [facility] [address] [place] [address] 06/07/2024 Faby Chad Unilateral primary osteoarthritis, left hip M16.12 [facility] [address] [place] [address] 06/07/2024 Adi Sanabria Unilateral primary osteoarthritis, left hip M16.12 [facility] [address] [address] 06/24/2024 Faby Anabel Unilateral primary osteoarthritis, left hip M16.12 and Pain in left hip M25.552 [facility] [place] [address] [address] 07/15/2024 Faby Chad Unilateral primary osteoarthritis, left hip M16.12 and Pain in left hip M25.552 [facility] [address] [address] 11/20/2023 Adi Sanabria [facility] [place] [address] [address] 02/29/2024 Adi Sanabria [facility] [place] [address] [address] 04/08/2024 Adi Sanabria [facility] [place] [address] [address] 2024 Adi Sanabria Assessments Encounter Date Diagnosis [...] homebound status. [facility] will be directed to assist the patient post operatively in their home startin02/24/2024 Patient will start outpatient physical therapy at [facility] on 03/09/2024 No history of DVT [...] homebound status. [facility] will be directed to assist the patient post operatively in their home startin06/08/24 Patient will start outpatient physical therapy at [facility] on 06/23/24 No history of DVT [...] Details Provider Name:Faby Bonilla, 01/18/2025 10:00:00 AM, [address], [address], Insurance Providers Payer Name Payer Address Payer Phone Subscriber Number Group Number Insured Name Patient Relationship to Insured Coverage Start Date Coverage End Date [employer] of [place] [employer] [address] [address] [place] [address] [id number] Dagmar Flores Self - patient is the insured BC[employer] [address] [place] [address] [phone] [id number] Dagmar Flores Self - patient is [...]
[2024-11-15] MEDS: SODIUM CHLORIDE 0.9% 10ML SYR (RAD ONLY) 10 ML IV ×2 (13:00→14:25)
--- NOTE | 2024-11-15 13:00 | NM_ITS ---
APPROVED REPORT Exam: Nuclear Stress Test Indication: h/o mi, hyperlipidemia, pace maker, c.p., palpitations Patient Location: Outpatient Stress Tech: Afsaneh Cota [place] Tech:Cheyanne Segura GASPER RT (R)(N)(M) Ht: 5 ft 1 in Wt: 144 lbs Bra Size: b HR: 70 bpm BP: 134/70 mmHg BSA: 1.64 m2 TID: 1.02 BMI: 27.2 History: h/o mi, hyperlipidemia, pace maker, c.p., palpitations Procedure: Patient received 0.4 mg of intravenous Lexiscan, resting heart rate 70 bpm, resting blood pressure 134/70 mmHg, with Lexiscan maximum heart rate achieved was 77 bpm which is % of the maximum predicted heart rate and blood pressure was 134/68 mmHg. With Lexiscan, patient denied any complaint of chest pain. Cardiac Stress and Resting SPECT Images: Cardiac Stress and Resting SPECT images were obtained using technetium 99m Myoview 31.9 mCi stress and 9.49 mCi at rest. Resting and stress imaging in supine and prone positions demonstrate a small sized, moderate, fixed perfusion defect in the distal inferior LV wall. Gated imaging demonstrates normal global LV systolic function. LVEF is calculated at 59%. Conclusion: Small sized, moderate, fixed perfusion defect in the distal inferior LV wall. No evidence of reversible ischemia. Gated imaging demonstrates normal global LV systolic function. LVEF is calculated at 59%. Electronically signed by : Natalia Burnham MD 11/15/2024 20:57:02
[2024-11-15 14:15] VITALS: BP 134/70; PULSE 70; RESP 16
[2024-11-15] MEDS: ISOTOPE MYOVIEW (PER STUDY) 1 DOSE IV (14:30)
== END 2024-11-15 23:59 | disposition home or self-care (01) ==
LOC: RAD 12:14
PROVIDERS: PCP Family Medicine; Visit Provider Nurse Practitioner Family
DX: I25.10 Atherosclerotic heart disease of native coronary artery without angina pectoris (principal); I48.0 Paroxysmal atrial fibrillation; R93.1 Abnormal findings on diagnostic imaging of heart and coronary circulation; E78.5 Hyperlipidemia, unspecified; I25.2 Old myocardial infarction; R94.39 Abnormal result of other cardiovascular function study; R55 Syncope and collapse; Z95.0 Presence of cardiac pacemaker
CPT/HCPCS: 78452; 93017; 93018; A9502; J2785

== ENCOUNTER 2024-11-16 15:01 | Outpatient (CLI) | payer MEDICARE, BC, SELFPAY ==
--- OUTSIDE RECORDS SUMMARY | 2023-12-14 09:15 | XMS_ITS ---
Author Organization [facility] Address 12[address] [facility] [address] [place] [phone] Care Team Providers Care Sql Server Developer Name Role Phone Arjun Barrett Primary Care Provider Dai Avalos Unavailable [phone] Allergies Allergen (clinical drug ingredient) Drug/Non Drug [...] Status Omeprazole 40 MG TAKE 1 CAPSULE DAILY; Duration: 90 days Active levETIRAcetam 500 MG 1 tab(s) orally 2 times a day; Duration: 90 days Active Venlafaxine HCl 37.5 MG TAKE 1 TABLET ONCE DAILY; Duration: 90 days Active Raloxifene HCl 60 MG TAKE 1 TABLET ONCE DAILY; Duration: 90 days Active Montelukast Sodium 10 MG 1 tab(s) orally once a day; Duration: 90 days Active Eliquis 5 MG 1 by mouth twice daily; Duration: 90 days Active Atorvastatin Calcium 40 MG 1 tab(s) orally once a day; Duration: 90 days Active Albuterol Sulfate (2.5 MG/3ML) 0.083% 3 ml Inhalation every 6 hrs, prn Active Zolpidem Tartrate 10 MG 1 tab(s) orally once a day (at bedtime); Duration: 30 day(s) 08/04/2023 Active Nebulizer/Tubing/Mout hpiece - [...] review and pick correct strength-formulati on from [employer] options. If intended option is not shown, discontinue and re-order from Quick Search* 07/31/2021 Active NEBULIZER SET UP FOR ADULT DIRECTED *Please review for potential replacement for e-prescription and drug interaction check* 07/31/2021 Active Vitamin D3 50 MCG (2000 UT) 1 tab(s) orally once a day; Duration: 90 days Active Albuterol Sulfate 0.83MG/ML (2.5MG/3ML) 1 VIAL DIRECTED Q 4-6 HRS PRN PER NEBULIZER; Duration: 90 DAYS *Please review and pick correct strength-formulati on from [employer] options. If intended option is not shown, discontinue and re-order from Quick Search* Active ALBUTEROL HFA INHALER 200 METERED DOSES/ 8.5GM 2 INHALATIONS QID PRN *Please review for potential replacement for e-prescription and drug interaction check* Active Latisse 0.03 % 1 diana applied topically once a day (at bedtime) 07/19/2020 Active Medrol 4 MG as directed orally daily; Duration: 6 days 12/14/2023 Active Vitamin B-12 1000 MCG 1 tablet Orally Once a day; Duration: 30 day(s) Active Vitamin B-1 250 MG 2 tablet Orally twice a day Active Ranexa Active Trelegy Ellipta 200-62.5-25 MCG/ACT 1 puff Inhalation Once a day Active Lidoderm 5 % 1 patch remove after 12 hours Externally Once a day; Duration: 30 days 12/14/2023 Active Vital Signs Weight 151.0 lbs 12/14/2023 Blood pressure systolic 116 mm Hg 12/14/19 Blood pressure diastolic 60 mm Hg 024 Heart Rate 57 /min 12/14/2023 Height 60 in 12/14/2023 BMI 29.49 kg/m2 12/14/2023 Encounters Encounter Location Date Provider Diagnosis [facility] [address] [place] [phone] 12/14/2023 Dai Avalos Hip pain M25.559 Assessments Encounter Date Diagnosis (ICD Code) Assessment Notes Treatment Notes Treatment Clinical Notes Section Notes 12/14/2023 Hip pain (ICD-10 - M25.559) continue use of cane/walker as needed; heat/ice application prn; meds with food Plan Of Treatment Medication Medication Name Sig Start Date Stop Date Notes Medrol 4 MG as directed orally daily; Duration: 6 days 09/2023 Lidoderm 5 % 1 patch remove after 12 hours Externally Once a day; Duration: 30 days 12/14/2023 Treatment Notes Assessment Notes Hip pain continue use of cane /walker as needed; heat/ice application prn; meds with food Next Appt Details Follow Up: will notify of te st results, Reason: Progress Notes * Dagmar FLORESaDOB: 1950 (74 yo F)Acc No.[id number]:12/14/2023 Progress Notes Patient: Dagmar TORRES Provider: LIBERTAD Connor :1950 A ge:73 Y S ex:Female Date:12/14/2023 Address:[address] Pcp:Arjun Barrett Subjective: * Chief Complaints: * [...] S out [facility] ER-seizure, passed out 03/2019, [facility] ER-syncope 10/24/2019, [facility] ER - syncope 10/28/2019. * Family History: [...] wine, every other night. * Medications: T alice Ranexa , Taking Vitamin B-1 250 MG [...] *Please review and pick correct strength-formulation from [employer] options. If intended option is not shown, [...] *Please review and pick correct strength-formulation from [employer] options. If intended option is not shown, [...] Temp:97.5, BP:116/60, HR:57, O2 Sat:96% on RA, Nurse:[facility], Ht: 60, BMI:29.49. * Examination: G eneral Examination: General Appearance: NAD, alert, pleasant, well nourished and hydrated; uses a cane with ambulation. H eart: RRR. L ungs: CTAB A&P.? H ip / Thigh: Hip joint: left. P alpation: not TTP. ? L ower back: Inspection: exaggerated lordosis. P alpation: no vertebral spine tenderness, no paraspinal spasm. G ait: walking with limp with cane.? Assessment: * Assessment: 1. H ip pain [...] w ill notify of test results * Images: Billing Information: * Visit Code: 84483 Office Visit, Est Pt., Level 3. * Procedure Codes: 40430 PULSE OX. * Electronic signature of Anjelica Avalos APRN on 11/16/2024 at 03:10 PM EDT Sign off status: Pending * Provider: LIBERTAD Connor Date: 1 Generated for Antonio maynard/Akira/Mariitting on: 0 11/16/2024 03:10 PM EDT History and Physical Notes * [...]
--- OUTSIDE RECORDS SUMMARY | 2024-01-05 06:00 | XMS_ITS ---
Author Organization [facility] Address 1210 [facility] [address] [place] [phone] Care Team Providers Care Nuclear Licensing Engineer Name Role Phone Arjun Barrett Primary Care Provider [phone] Allergies Allergen (clinical drug ingredient) Drug/Non Drug Allergy documented on EMR Reaction Allergy Type Onset Date Status hydromorphone Dilaudid Unknown Drug Allergy Act lico codeine Codeine Unknown Drug Allergy Active REASON FOR VISIT Follow Up [facility] ER - [place] Medications Medication [...] review and pick correct strength-formulati on from [employer] options. If intended option is not shown, discontinue and re-order from Loom Search* Active Vitamin D3 50 MCG (2000 UT) 1 tab(s) orally once a day; Duration: 90 days Active NEBULIZER SET UP FOR ADULT DIRECTED *Please review for potential replacement for e-prescription and drug interaction check* 07/31/2021 Active Ipratropium-Albuterol 3/ 0.5/ 3 ML 3 ML TID *Please review and pick correct strength-formulati on from [employer] options. If intended option is not shown, [...] Encounter Location Date Provider Diagnosis EM[facility]Eric 1210 [facility] [address] [place] [phone] 01/05/2024 Arjun Barrett Fall W19.XXXA and Radial [...] Penny FLORESalvaro LockaDOB: 1950 (74 yo F)Acc No.[id number]:01/05/2024 Progress Notes Patient: Dagmar TORRES Provider: Arjun Barrett M.D. :1950 A ge:73 Y S ex:Female Date:01/05/2024 Address:[address], [id number] Subjective: * Chief Complaints: * 1 . Follow Up [facility] ER - [place]. * HPI: [...] 05/2022. * Hospitalization/Major Diagno stic Procedure: S [facility] ER-seizure, passed out 03/2019, [facility] ER-syncope 10/24/2019, [facility] ER - syncope 10/28/2019, [facility] ER - Fall- [place] 12/30/2023. [...] review and pick correct strength- formulation from Bright View [employer]an options. If intended option is not [...] *Please review and pick correct strength-formulation from Onstream Med[employer]pan options. If intended option is not shown, [...] * Images: Billing Information: * Visit Code: 17001 Office Visit, Est Pt., Level 3. * Procedure Codes: * Electronic signature of Arjun Barrett MD on 11/16/2024 at 03:07 PM EDT Sign off status: Pending * Provider: Arjun Barrett M.D. Date: Generated for Antonio maynard/Akira/Solis on: 0 11/16/2024 03:07 PM EDT History and Physical Notes * [...]
--- OUTSIDE RECORDS SUMMARY | 2024-03-26 05:00 | XMS_ITS ---
Author Organization [facility] Address [address] [address] Care Team Providers Care Artificial Limb Fitter Name Role Phone Migration, Provider Unavailable Unavailable REASON FOR VISIT EMR-Julien Encounters Encounter Location Date Provider Diagnosis [facility] [address] [facility] [address] [place] [address] 03/26/2024 Provider Migration Plan Of Treatment No Information Progress Notes * IDA MOTLEY GDOB: [birth year] (74 yo F)Acc No.[id number]:03/26/2024 Patient: Scott ROMEO IDA Ruthie :1950 A ge:73 Y S ex:Female Address:[address] [place] [address] [address], [place], [address] Subjective: * Chief Complaints: * E MR-Julien * * Date:
--- OUTSIDE RECORDS SUMMARY | 2024-03-27 05:00 | XMS_ITS ---
Author Organization [facility] Address [address] [facility] [address] [place] [address] Care Team Providers Care Director Of Research Center Name Role Phone Migration, Provider Unavailable Unavailable Allergies Allergen (clinical drug ingredient) Drug/Non Drug Allergy documented on EMR Reaction Allergy Type Onset Date Status Hydromorphone / Dilaudid?, Palladone TM (uncoded) Unknown Allergy Active codeine Codeine Unknown Drug Allergy Active REASON FOR VISIT EMR-Julien Encounters Encounter Location Date Provider Diagnosis [facility] [address] [facility] [address] [place] [address] 03/27/2024 Provider Migration Plan Of Treatment No Information Progress Notes * IDA MOTLEY GDOB: [birth year] (74 yo F)Acc No.[id number]:03/27/2024 Patient: IDA TORRES :1950 A ge:73 Y S ex:Female Address:[address] [place] [address] [address], [place], [address] Subjective: * Chief Complaints: * E MR-Julien * Allergies: H ydromorphone / Dilaudid?, Palladone TM: AllergyCodeine: Allergy * * Date:
--- OUTSIDE RECORDS SUMMARY | 2024-05-05 08:45 | XMS_ITS ---
Author Organization [facility], [facility] Address [address] [place] [address] Care Team Providers Care Flare Maker Name Role Phone Joy PUENTES, Fran Primary Care Provider Piero Miranda MD, Negro Unavailable [phone] REASON FOR VISIT egd Encounters Encounter Location Date Provider Diagnosis [facility] [address] [place] [address] 05/05/2024 Negro Miranda Plan Of Treatment Next Appt Details Provider Name:Negro molina, 09/29/2028 11:00:00 AM, [address] [place], [address], Progress Notes * Penny FLORESena GDOB: [birth year] (74 yo F)Acc No.[id number]:05/05/2024 Patient: Dagmar TORRES Provider: Alicia Oseguera M.D :1950 A ge:73 Y S ex:Female Date:05/05/2024 Address:[address] [place], [place] [address] Pcp:Fran Hamilton MD * Images: * Electronic signature of Catarino Miranda MD on 11/16/2024 at 03:10 PM EDT Sign off status: Pending * Provider: Alicia Oseguera M.D Date: 0 05/05/2024 Generated for Printi ng/Faxing/eTransmitting on: 0 11/16/2024 03:10 PM EDT
--- OUTSIDE RECORDS SUMMARY | 2024-06-09 04:40 | XMS_ITS ---
Author Organization [facility] Address [address] [place] [address] Care Team Providers Care Roller Cleaner Name Role Phone MAX HAMILTON Primary Care Provider REASON FOR VISIT 1MTH F/UP ON LABS Social History Sex Assigned At : Social History Observation Description Sex Assigned At Female Encounters Encounter Location Date Provider Diagnosis [facility] [address] [place] [address] 06/09/2024 MAX HAMILTON Plan Of Treatment Next Appt Details Provider Name:MAX HAMLITON, 01/18/2025 08:30:00 AM, [address] [place] [address], [address], Provider Name:Kolton Vazquez, 04:40:00 PM, [address] [place] [address], [address], Provider Name:Girma nance, 05/29/2025 02:00:00 PM, [address] [place] [address], [address], Progress Notes * IDA MOTLEY GDOB: [birth year] (74 yo F)Acc No.[id number]:06/09/2024 Progress Notes Patient: ANTONI TORRESENA Ruthie Provider: Arjun Hamilton MD :1950 A ge:73 Y S ex:Female Date:06/09/2024 Address:[address] [place] [address] , [address], [id number] Structured Data:Seasonal : Y es; How did you hear about our practice? : Established patient Subjective: * Chief Complaints: * 1 MTH F/UP ON LABS Care Plan Details* * Electronic signature of MAX HAMILTON M.D. on 11/16/2024 at 03:07 PM EDT Sign off status: Pending * Provider: Arjun Hamitlon MD Date: 0 06/09/2024 Generated for Antonio maynard/Akira/Mariitting on: 0 11/16/2024 03:07 PM EDT
--- OUTSIDE RECORDS SUMMARY | 2024-06-22 05:45 | XMS_ITS ---
Author Organization [facility] [place] Address [address] [facility] [address] [place] [address] Care Team Providers Care Yarder Boss Name Role Phone Fran Hamilton Primary Care Provider Adi Hayes [phone] REASON FOR VISIT F/U LEFT HIP Encounters Encounter Location Date Provider Diagnosis [facility] [address] [address] 06/22/2024 Adi Sanabria Plan Of Treatment Next Appt Details Provider Name:Faby Bonilla, 01/18/2025 10:00:00 AM, [address] [place] [address], [place], [address], Progress Notes * Dagmar FLORES GDOB: [birth year] (74 yo F)Acc No.[id number]:06/22/2024 Progress Notes Patient: Dagmar TORRES Provider: Aaron Sanabria Jr., MD :1950 A ge:74 Y S ex:Female Date:06/22/2024 Address:[address] [place] [address] [address] , [address], [facility] Pcp:Fran Hamilton Subjective: * Chief Complaints: * 1 . F/U LEFT HIP. * Medical History: Objective: * Vitals: Assessment: Plan: * Treatment: * Billing Information: * Visit Code: * Procedure Codes: * Electronic signature of Adi Sanabria MD on 11/16/2024 at 03:11 PM EDT Sign off status: Pending * Provider: Aaron Sanabria Jr., MD Date: 0 06/22/2024 Generated for Antonio maynard/Akira/Solis on: 0 11/16/2024 03:11 PM EDT
--- OUTSIDE RECORDS SUMMARY | 2024-06-23 09:30 | XMS_ITS ---
Author Organization 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 [...] per week How often do you attend [facility] or yazidism services? More than 4 times per year [...] Bachelors degree (e.g., MA, MS, Brain, MEd, PREMISES TECHNICIAN, ALISTAIR) Occupation retired Marital status: # of [...] Risk Notes Problem Chronic diastolic heart failure (830889411) Chronic heart failure with preserved ejection fraction (HFpEF) (I50.32) Active confirmed Problem Peripheral vascular disease (048066312) PAD (peripheral artery disease) (I73.9) Active confirmed Vital Signs Height 61 in 06/23/2024 Weight 142 lbs 06/23/2024 BMI 26.83 kg/m2 06/23/2024 Encounters Encounter Location Date Provider Diagnosis [facility] [address] [place] [address] 06/23/2024 Ashlee Vegabriela Presence of cardiac pacemaker [...] 06/23/2024 Other HPI ,exam assessment, plan and oracle database manager performed by Ashlee Argueta APRN - - [...] exercises Other HPI ,exam assessment, plan and oracle database manager performed by Ashlee Argueta APRN - - [...] Details Provider Name:MAX LOPEZ, 01/18/2025 08:30:00 AM, [address] [place] [address], [phone], Provider Name:Kolton Vazquez, 04:40:00 PM, [address] [place] [address], [phone], Provider Name:VanePhani Lizeth lee ann, 05/29/2025 02:00:00 PM, [address] [place] [address], [phone], History and Physical Notes * Examination Category Sub-Category Detail Notes Category Not es General Examination GENERAL APPEARANCE: pleasant, in n o acute distress NEUROLOGIC: awake, alert, kennedy ative Progress Notes * IDA MOTLEY GDOB: [birth year] (74 yo F)Acc No.[id number]:06/23/2024 Patient: IDA TORRES Provider: Salma Argueta :1950 A ge:74 Y S ex:Female Date:06/23/2024 Address:[address] [place] [address] , [address] Pcp:MAX LOPEZ Structured Data:Seasonal : Y [...] remaining uterus (resolved 02/04/2016) 2023.01.15 CXR ASVDa. [id number] 7 Alcohol use -patient has 3 or [...] removed from arm 02/17/2022 DX fall @ [facility] ER VISIT 12/30/2023 * Family History: Positive for Coronary Artery Disease ( father; mother ). Positive for Breast Cancer ( mat. GM ) and Cervical Cancer ( sister ). Negative for Colon Cancer or Ovarian Cancer. * Social History: [facility] Social History: T obacco T obacco use [...] achelors degree (e.g., MA, MS, Brain, MEd, PREMISES TECHNICIAN, ALISTAIR) O ccupation r alexa cerontal status: [...] week H ow often do you attend religious or yazidism services? 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 Notes: HPI ,exam assessment, plan and oracle database manager performed by sAhlee Argueta APRN - - ?The visit was conducted with the use of interactive ( video /audio) telecommunication that permitted real time communication between ( patient) and Myself. (Patient) verbally consented to participation and recieved service being present at Home.?? Billing Information: * Procedure Codes: * Electronic signature of Ted Argueta APRN on 11/16/2024 at 03:06 PM EDT Sign off status: Pending * Provider: Salma Argueta Date: 0 06/23/2024 Generated for Antonio Romo/Solis on: 0 11/16/2024 03:06 PM EDT
--- OUTSIDE RECORDS SUMMARY | 2024-07-04 10:15 | XMS_ITS ---
Author Organization [facility] [place] Address [address] [address] [address] [place] [address] Care Team Providers Care Certified Travel Counselor Name Role Phone Fran Hamilton Primary Care Provider Adi Hayes Unavailable [phone] Faby Bonilla Unavailable [phone] REASON FOR VISIT LTHA, AVENIR Encounters Encounter Location Date Provider Diagnosis [facility] [address] [address] 07/04/2024 Faby Bonilla Plan Of Treatment Next Appt Details Provider Name:Faby Bonilla, 01/18/2025 10:00:00 AM, [address] [address], [place], [address], Progress Notes * SANDRADagmar MENDES GDOB: [birth year] (74 yo F)Acc No.[id number]:07/04/2024 Progress Note Patient: Dagmar TORRES Provider: Scott Bonilla APRN, FNP-C :1950 A ge:74 Y S ex:Female Date:07/04/2024 Address:[address] , [address], [place], [id number] Pcp:Fran Hamilton Subjective: * Chief Complaints: * 1 . LTHA, AVENIR. * Medical History: Objective: * Vitals: Assessment: Plan: * Treatment: * Billing Information: * Visit Code: * Procedure Codes: * Electronic signature of NAV Lux on 11/16/2024 at 03:07 PM EDT Sign off status: Pending * Provider: Scott Bonilla APRN, FNP-C Date: 0 07/04/2024 Generated for Antonio maynard/Akira/Solis on: 0 11/16/2024 03:07 PM EDT
--- OUTSIDE RECORDS SUMMARY | 2024-07-22 05:45 | XMS_ITS ---
Author Organization [facility] [place] Address [address] [facility] [address] [place] [address] Care Team Providers Care Masking Machine Feeder Name Role Phone Fran Hamilton Primary Care Provider Adi Hayes [phone] REASON FOR VISIT LT Hip F/U Encounters Encounter Location Date Provider Diagnosis [place] [address] [address] 07/22/2024 Adi Sanabria Plan Of Treatment Next Appt Details Provider Name:Faby Bonilla, 01/18/2025 10:00:00 AM, [address] [address], [place], [address], Progress Notes * Dagmar FLORES GDOB: [birth year] (74 yo F)Acc No.[id number]:07/22/2024 Progress Notes Patient: Dagmar TORRES Provider: Aaron Sanabria Jr., MD :1950 A ge:74 Y S ex:Female Date:07/22/2024 Address:[address] [place] [address] [address] , [address], [facility] Pcp:Fran Hmailton Subjective: * Chief Complaints: * 1 . LT Hip F/U. * Medical History: Objective: * Vitals: Assessment: Plan: * Treatment: * Billing Information: * Visit Code: * Procedure Codes: * Electronic signature of Adi Sanabria MD on 11/16/2024 at 03:10 PM EDT Sign off status: Pending * Provider: Aaron Sanabria Jr., MD Date: 0 07/22/2024 Generated for Antonio maynard/Akira/Solis on: 0 11/16/2024 03:10 PM EDT
--- OUTSIDE RECORDS SUMMARY | 2024-08-25 07:00 | XMS_ITS ---
[facility] Organization [facility] Address [address] [place] [phone] Care Team Providers Care School Standards Coach Name Role Phone Arjun Barrett Primary Care [...] review and pick correct strength-formulati on from [employer] options. If intended option is not shown, [...] review and pick correct strength-formulati on from [employer] options. If intended option is not shown, [...] Status W/U Status Risk Notes Problem Anemia (192474807) Anemia (D64.9) Active confirmed Problem Diabetic peripheral neuropathy associated with type 2 diabetes mellitus (1385989093586) Type 2 diabetes mellitus with diabetic neuropathy, unspecified whether supervisor intermediates insulin use (E11.40) Active confirmed Vital Signs Weight 140.6 lbs 08/25/2024 Blood pressure systolic 110 mm Hg 08/26/19 25 Blood pressure diastolic 70 mm Hg 025 Heart Rate 68 /min 08/25/2024 Height 60 in 08/25/2024 BMI 27.46 kg/m2 08/25/2024 Encounters Encounter Location Date Provider Diagnosis [facility] [address] [facility] [address] [place] [address], [place] [phone] 08/25/2024 Arjun Barrett Adult general medica l [...] diabetes mellitus with diabetic neuropathy, unspecified whether supervisor intermediates insulin use (ICD-10 - E11.40) 08/25/2024 BMI [...] TIESHA Dagmaralvaro MosleyB: 1950 (74 yo F)Acc No.[id number]:08/25/2024 Annual Wellness Visit Patient: Dagmar TORRES Provider: Arjun Barrett M.D. :1950 A ge:74 Y S ex:Female Date:08/25/2024 Address:[address], [id number] Subjective: * Chief Complaints: * 1 . check up and Annual Wellness Visit. * HPI: H PI: Patient is here today for a scheduled check up and a Medicare Annual Wellness Visit and fasting labs. She has just returned from wintering in [place]. While in [place] she underwent left total hip and left [...] Colonoscopy/ diverticulosis/ [place] 2023, Left total knee/ [place] 2024, Left total hip/ [place] 2024. * Hospitalization/Major Diagno stic Procedure: [facility]-seizure, passed out 03/2019, [facility] ER-syncope 10/24/2019, [facility] ER - syncope 10/28/2019, [facility] ER - Fall- Broken Arm 12/30/2023. [...] review and pick correct strength- formulation from [employer] options. If intended option is not shown, [...] *Please review and pick correct strength-formulation from [employer] options. If intended option is not shown, [...] neuropathy, unspecified whether skilled nursing insulin use - E11.40 1 2. B [place] 27.0-27.9,adult - Z68.27 1 3. P acemaker [...] 08:1 9:51 AM EDT > faxed to [facility] SchedulingAPPT 09/08/24 @9:30Neeta Aldridge 09/13/2024 03:47:39 [...] * Images: Billing Information: * Visit Code: 50191 Office Visit, Est Pt., Level 3. Modifiers: [...] of Arjun Barrett MD on 11/16/2024 at 03:06 PM EDT Sign off status: Pending * Provider: Arjun Barrett M.D. Date: 0 08/25/2024 Generated for Antonio maynard/Akira/eTransmitting on: 0 11/16/2024 03:06 PM EDT History and Physical Notes * HPI (History of Present Illness) Category Sub-Category Detail Notes Category Not es HPI Patient is here today for a [facility] check up and a Medicare Annual Wellness Visit and fasting labs. She has just returned from wintering in [place]. While in [place] she underwent left total hip and left [...]
--- OUTSIDE RECORDS SUMMARY | 2024-09-17 17:30 | XMS_ITS ---
Author Organization [facility] Address [address] [address] Care Team Providers Care Molecular Spectroscopist Name Role Phone Joy PUENTES, Fran Primary Care Provider Unavailkeiry leong Jignesh Wade Unavailable [phone] Migration, Provider Unavailable Unavailable Allergies Allergen (clinical drug ingredient) Drug/Non Drug Allergy documented on EMR Reaction Allergy Type Onset Date Status hydromorphone Dilaudid Unknown Drug Allergy Act lico codeine Codeine Unknown Drug Allergy [facility] Encounter Medications Medication SIG (Take, Route, Frequency, Duration) Notes Start Date End Date Status Advil *Please review a nd pick correct strength-formulatio n from Medispan options. If intended option is not shown, discontinue and re-order from Quick Search* Active Percocet *Please review a nd pick correct strength-formulatio n from Medispan options. If intended option is not shown, discontinue and re-order from Quick Search* Active Xopenex *Please review a nd pick correct strength-formulatio n from Medispan options. If intended option is not shown, discontinue and re-order from Quick Search* Active Albuterol *Please review a nd pick correct strength-formulatio n from Medispan options. If intended option is not shown, discontinue and re-order from Quick Search* Active Darvocet-N 50 *Please review a nd pick correct strength-formulatio n from Medispan options. If intended option is not shown, discontinue and re-order from Quick Search* Active Evista *Please review a nd pick correct strength-formulatio n from Medispan options. If intended option is not shown, discontinue and re-order from Quick Search* Active Neurontin *Please review a nd pick correct strength-formulatio n from Medispan options. If intended option is not shown, discontinue and re-order from Quick Search* Active Keppra *Please review a nd pick correct strength-formulatio n from Medispan options. If intended option is not shown, discontinue and re-order from Quick Search* Active Prevacid *Please review a nd pick correct strength-formulatio n from Medispan options. If intended option is not shown, discontinue and re-order from Quick Search* Active NitroQuick *Please review a nd pick correct strength-formulatio n from Medispan options. If intended option is not shown, discontinue and re-order from Quick Search* Active Baclofen *Please review a nd pick correct strength-formulatio n from Medispan options. If intended option is not shown, discontinue and re-order from Quick Search* Active Lasix *Please review a nd pick correct strength-formulatio n from Medispan options. If intended option is not shown, discontinue and re-order from Quick Search* Active Tambocor *Please review a nd pick correct strength-formulatio n from Medispan options. If intended option is not shown, discontinue and re-order from Quick Search* Active Razadyne ER *Please review a nd pick correct strength-formulatio n from Medispan options. If intended option is not shown, discontinue and re-order from Quick Search* Active CeleBREX *Please review a nd pick correct strength-formulatio n from Medispan options. If intended option is not shown, discontinue and re-order from Quick Search* Active Spiriva HandiHaler *Please revie w and pick correct strength-formulatio n from Medispan options. If intended option is not shown, discontinue and re-order from Quick Search* Active Advair Diskus *Please review a nd pick correct strength-formulatio n from Medispan options. If intended option is not shown, discontinue and re-order from Quick Search* Active Coumadin *Please review a nd pick correct strength-formulatio n from Medispan options. If intended option is not shown, discontinue and re-order from Quick Search* Active Lipitor *Please review a nd pick correct strength-formulatio n from Medispan options. If intended option is not shown, discontinue and re-order from Quick Search* Active Encounters Encounter Location Date Provider Diagnosis [facility] [address] [address] 09/17/2024 Provider Migration Plan Of Treatment No Information Progress Notes * IDA MOTLEY GDOB: [birth year] (74 yo F)Acc No.[id number]:09/17/2024 Patient: IDA TORRES Provider: Olegario ervin Migration :1950 A ge:74 Y S ex:Female Date:09/17/2024 Address:[address] [place] [address], [facility] Pcp:Fran Hamilton MD Subjective: * Chief Complaints: * 1 . Multum To Medispan Conversion Encounter. * Medical History: * Medications: T aking Coumadin , Notes to Pharmacist: *Please review and pick correct strength-formulation from Medispan options. If intended option is not shown, discontinue and re-order from Quick Search*, Taking Advair Diskus , Notes to Pharmacist: *Please review and pick correct strength-formulation from Medispan options. If intended option is not shown, discontinue and re-order from Quick Search*, Taking Spiriva HandiHaler , Notes to Pharmacist: *Please review and pick correct strength-formulation from Medispan options. If intended option is not shown, discontinue and re-order from Quick Search*, Taking Lipitor , Notes to Pharmacist: *Please review and pick correct strength-formulation from Medispan options. If intended option is not shown, discontinue and re-order from Quick Search*, Taking Tambocor , Notes to Pharmacist: *Please review and pick correct strength- formulation from Medispan options. If intended option is not shown, discontinue and re-order from Quick Search*, Taking Lasix , Notes to Pharmacist: *Please review and pick correct strength-formulation from Medispan options. If intended option is not shown, discontinue and re-order from Quick Search*, Taking CeleBREX , Notes to Pharmacist: *Please review and pick correct strength-formulation from Medispan options. If intended option is not shown, discontinue and re-order from Quick Search*, Taking Razadyne ER , Notes to Pharmacist: *Please review and pick correct strength-formulation from Medispan options. If intended option is not shown, discontinue and re-order from Quick Search*, Taking Baclofen , Notes to Pharmacist: *Please review and pick correct strength-formulation from Medispan options. If intended option is not shown, discontinue and re-order from Quick Search*, Taking Neurontin , Notes to Pharmacist: *Please review and pick correct strength- formulation from Medispan options. If intended option is not shown, discontinue and re-order from Quick Search*, Taking Prevacid , Notes to Pharmacist: *Please review and pick correct strength-formulation from Medispan options. If intended option is not shown, discontinue and re-order from Quick Search*, Taking Keppra , Notes to Pharmacist: *Please review and pick correct strength-formulation from Medispan options. If intended option is not shown, discontinue and re-order from Quick Search*, Taking Evista , Notes to Pharmacist: *Please review and pick correct strength- formulation from Medispan options. If intended option is not shown, discontinue and re-order from Quick Search*, Taking NitroQuick , Notes to Pharmacist: *Please review and pick correct strength-formulation from Medispan options. If intended option is not shown, discontinue and re-order from Quick Search*, Taking Darvocet-N 50 , Notes to Pharmacist: *Please review and pick correct strength-formulation from Medispan options. If intended option is not shown, discontinue and re-order from Quick Search*, Taking Percocet , Notes to Pharmacist: *Please review and pick correct strength-formulation from Medispan options. If intended option is not shown, discontinue and re-order from Quick Search*, Taking Advil , Notes to Pharmacist: *Please review and pick correct strength-formulation from Medispan options. If intended option is not shown, discontinue and re-order from Quick Search*, Taking Albuterol , Notes to Pharmacist: *Please review and pick correct strength- formulation from Medispan options. If intended option is not shown, discontinue and re-order from Quick Search*, Taking Xopenex , Notes to Pharmacist: *Please review and pick correct strength-formulation from Medispan options. If intended option is not shown, discontinue and re-order from Quick Search* * Allergies: C odeine, Dilaudid. Objective: * Vitals: Assessment: Plan: * Treatment: * Billing Information: * Visit Code: * Procedure Codes: * Electronic signature of Prov ider Migration on 11/16/2024 at 03:08 PM EDT Sign off status: Pending * Provider: Olegario ervin Migration Date: 0 09/17/2024 Generated for Antonio maynard/Akira/Mariitting on: 0 11/16/2024 03:08 PM EDT
--- OUTSIDE RECORDS SUMMARY | 2024-10-10 15:15 | XMS_ITS | Encounter Summary ---
Author Organization Healthcare Address [address] [place] [address] Care Team Providers Care Director Of Physical Education Name Role Phone Charles Barrett MD Primary Care Provider +1- [phone] Encounter Details Date Type Department Care Team (Latest Contact Info) Description 10/10/2024 3:15 PM EDT - 10/10/2024 11:59 PM EDT Hospital Encounter Cardiac Imaging [address] [place] [address] Pacemaker Discharge Disposition: Home or Self Care [...] often do you attend chur ch or hindu services? More than 4 times per year [...] Description 11/23/2024 11:40 AM EDT Office Visit [facility] [place] Greg [address] [facility] [place] [address] Indu Grimes MD [address] [place] [address] 12/08/2024 9:40 AM EDT Office Visit [facility] [place] [address] [place] [address] Sylvester Farr MD [address] [place] [address] documented as of this encounter [...] duration 28 min 36 sec, on Eliquis [place] 5.3% S/p AVN ablation Elyssa Ambriz BARBY [...] documented as of this encounter Care Teams Director Of Physical Education Relationship Specialty Start Date End Date Charles Barrett MD [address] [place] [address] PCP - General 09/11/21 documented as of this encounter
--- OUTSIDE RECORDS SUMMARY | 2024-11-01 07:45 | XMS_ITS ---
[facility] Address [address] [facility] [address] [place] [phone] Care Team Providers Care Info Specialist Name Role Phone Arjun Barrett Primary Care Provider Allergies Allergen (clinical drug ingredient) Drug/Non Drug Allergy documented on EMR Reaction Allergy Type Onset Date Status hydromorphone Dilaudid Unknown Drug Allergy Act lico codeine Codeine Unknown Drug Allergy Active Results Component Value Reference Range Notes P-Vitamin B12 Reviewed date:11/08/2024 08:50:00 AM Interpretation:773 Performing Lab: Notes/Report: Test performed by [employer], [employer] [address] [place] [address] , [address], [place] [address] En Gutierrez MD, Furnace Loader CLIA: [id number] Vitamin B12 186 318-2677 pg/mL REASON FOR VISIT F/U fall Medications [...] review and pick correct strength-formulati on from [employer] options. If intended option is not shown, [...] review and pick correct strength-formulati on from [employer] options. If intended option is not shown, [...] [address] [place] [phone] 11/01/2024 Arjun Barrett Vitamin B12 deficien cy [...] as scheduled, [place]yenne son: Progress Notes * Dagmar FLORES AshvinaDOB: 1950 (74 yo F)Acc No.[id number]:11/01/2024 Patient: Dagmar TORRES Provider: Arjun Barrett M.D. :1950 A ge:74 Y S ex:Female Date:11/01/2024 Address:[address] [id number] Subjective: * Chief Complaints: * 1 . [...] Colonoscopy/ diverticulosis/ [place] 2023, Left total knee/ [place] 2024, Left total hip/ [place] 2024. * Hospitalization/Major Diagno stic Procedure: S [facility] ER-seizure, passed out 03/2019, [facility] ER-syncope 10/24/2019, [facility] ER - syncope 10/28/2019, [facility] ER - Fall- Broken Arm 12/30/2023. * [...] review and pick correct strength- formulation from [employer] options. If intended option is not shown, [...] *Please review and pick correct strength-formulation from [employer] options. If intended option is not shown, [...] 73 Value Reference Range V itamin B12 614 930-7894 - pg/mL * Arjun Barrett 11/08/2024 0 8:49:54 AM EDT > See phone encounter * Follow Up: a s scheduled * Images: Billing Information: * Visit Code: 81388 Office Visit, Est Pt., Level 3. * Procedure Codes: * Electronic signature of Arjun Barrett MD on 11/16/2024 at 03:09 PM EDT Sign off status: Pending * Provider: Arjun Barrett M.D. Date: 0 11/01/2024 Generated for Antonio maynard/Akira/Solis on: 0 11/16/2024 03:09 PM EDT History and Physical Notes * [...]
--- OUTSIDE RECORDS SUMMARY | 2024-11-14 11:30 | XMS_ITS ---
Author Organization [facility] Address [facility] [facility] [address] [place] [phone] Care Team Providers Care Tool And Gauge Inspector Name Role Phone Arjun Barrett Primary Care Provider Dai Avalos Unavailable [phone] Allergies Allergen (clinical drug ingredient) Drug/Non Drug [...] review and pick correct strength-formulati on from [employer] options. If intended option is not shown, discontinue and re-order from Quick Search* Active Ipratropium-Albuterol 3/ 0.5/ 3 ML 3 ML TID *Please review and pick correct strength-formulati on from [employer] options. If intended option is not shown, [...] 11/14/2024 Encounters Encounter Location Date Provider Diagnosis [facility] [facility] 36 [facility] [address] [place] [phone] 11/14/2024 Dai Avalos Acute bilateral low back [...] * Dagmar FLORESaDOB: 1950 (74 yo F)Acc No.[id number]:11/14/2024 Progress Notes Patient: Dagmar TORRES Provider: LIBERTAD Connor :1950 A ge:74 Y S ex:Female Date:11/14/2024 Address:[address] [place], [id number] Pcp:Arjun Barrett Subjective: * Chief Complaints: * 1 . Knee, hip, back from fall. * HPI: L eg: was evbaluated at [facility] and has had a FU with [...] Colonoscopy/ diverticulosis/ [place] 20[place], Left total knee/ [place] 2024, Left total hip/ [place] 2024. * [facility]ic [facility]: [facility] ER-syncope 10/24/2019, [facility] ER - syncope 10/28/2019, [facility] ER - Fall- Broken Arm 12/30/2023. [...] *Please review and pick correct strength-formulation from [employer] options. If intended option is not shown, [...] (Route: Intramuscular) given by GARY Soni , Transit Coach Operator on Right Deltoid (Encounter for immunization) * Procedure Codes: 9 0662 FLU VACC PRSV FREE INC ANTIG, G0008 ADMN FLU VAC NO FEE SCHED SAME DAY * Follow Up: w ill notify of test results * Images: Billing Information: * Visit Code: 77997 Office Visit, Est Pt., Level 4. * Procedure Codes: 38090 FLU VACC PRSV FREE INC ANTIG. G0008 ADMN FLU VAC NO FEE SCHED SAME DAY. * Electronic signature of Anjelica Avalos APRN on 11/16/2024 at 03:07 PM EDT Sign off status: Pending * Provider: LIBERTAD Connor Date: 0 11/14/2024 Generated for Antonio Romo/Solis on: 0 11/16/2024 03:07 PM EDT History [...]
--- NOTE | 2024-11-16 15:06 | MM_ITS ---
PROCEDURE INFORMATION: Exam: MG Bilateral Screening 3D Mammography Exam date and time: 11/16/2024 3:07 PM Age: 74 years old Clinical indication: Screening examination TECHNIQUE: Imaging protocol: Bilateral Screening tomosynthesis and 2D mammography including computer-aided detection (CAD) when performed. COMPARISON: 1. MG MY Breast Gordo HUI 09/12/2019 11:23 AM 2. MG MY Digital Gordo Screen BILAT 08/11/2018 2:56 PM FINDINGS: MAMMOGRAPHY: Breast composition: There are scattered areas of fibroglandular density. Mass: None. Architectural distortion: Mild diffuse bilateral architectural distortion is due to prior reduction mammoplasty. Calcifications: No suspicious calcifications. Asymmetric density: None. Skin thickening: None. Axillary adenopathy: None. Other findings: A power pack overlies the left chest. IMPRESSION: No mammographic evidence of malignancy. Annual screening is recommended unless otherwise clinically indicated. ASSESSMENT: BI-RADS Category 2: Benign.
--- OUTSIDE RECORDS SUMMARY | 2024-11-16 15:06 | XMS_ITS | Encounter Summary ---
Author Organization Healthcare Address [address] [place] [address] Care Team Providers Care Data Reporting Analyst Name Role Phone Charles Barrett MD Primary Care Provider +1- [phone] Bozena Milan LPN Unavailable Unavailable Encounter Details Date Type Department Care Team (Late st Contact Info) Description 08/12/2021 Orders Only External Location [address] [place] [address] Provider, External Social History Tobacco [...] Description 11/23/2024 11:40 AM EDT Office Visit [facility] [place] [address] [facility]. [address] [address] Indu Grimes MD [address] [place] [address] 12/08/2024 9:40 AM EDT Office Visit [facility] [address] [facility] [address] Sylvester Farr MD [address] [place] [address] documented as of this encounter [...] on filedocumented in this encounter Care Teams Data Reporting Analyst Relationship Specialty Start Date End Date Charles Barrett MD [address] [place] [address] PCP - General 09/11/21 Bozena Milan LPN TCM Nurse 11/24/23 12/24/23 documented as of this encounter
--- OUTSIDE RECORDS SUMMARY | 2024-11-16 15:06 | XMS_ITS | Encounter Summary ---
Author Organization Healthcare Address [address] [place] [address] Care Team Providers Care Making Line Worker Name Role Phone Charles Barrett MD Primary Care Provider +1- [phone] Bozena Milan LPN Unavailable Unavailable Encounter Details Date Type Department Care Team (Late st Contact Info) Description 07/31/2021 Orders Only External Location [address] [place] [address] Provider, External Social History Tobacco Use Types [...] 11/23/2024 11:40 AM EDT Office Visit [facility] [place] [address] [facility]. [address] [phone] Indu Grimes MD [address] [place] [address] 12/08/2024 9:40 AM EDT Office Visit [facility] [address] [facility] [address] Sylvester Farr MD [address] [place] [address] documented as of this encounter [...] on filedocumented in this encounter Care Teams Making Line Worker Relationship Specialty Start Date End Date Charles Barrett MD [address] [place] [address] PCP - General 09/11/21 Bozena Milan LPN TCM Nurse 11/24/23 12/24/23 documented as of this encounter
--- OUTSIDE RECORDS SUMMARY | 2024-11-16 15:06 | XMS_ITS | Patient Health Record ---
Author Organization [facility] Address [address] [address] Care Team Providers Care Absorption Operator Name Role Phone Migration, Provider Unavailable Unavailable Reason For Referral No Information Encounters Encounter Location Date Provider Diagnosis [facility] [address] [address] 03/26/2024 Provider Migration [facility] [address] [address] 03/27/2024 Provider Migration Plan Of Treatment No Information Insurance Providers Payer Name Payer Address Payer Phone Subscriber Number Group Number Insured Name Patient Relationship to Insured Coverage Start Date Coverage End Date [facility] [address] [place] [address] [id number] TIESHA IDA Self - patient is the insured 9 6 Medicare Part B [address] [place] [id number] TIESHAANTONIIDA Self - patient is the insured 9 6
--- OUTSIDE RECORDS SUMMARY | 2024-11-16 15:06 | XMS_ITS | Encounter Summary ---
Author Organization Healthcare Address [address] [place] [address] Care Team Providers Care Nutrition Worker Name Role Phone Charles Barrett MD Primary Care Provider +1- [phone] Encounter Details Date Type Department Care Team [...] 11/25/2023 How often do you attend [facility] or quaker services? More than 4 times per year 11/25/2023 Do you belong to any clubs o r organizations such as spiritism groups, unions, fraternal or athletic groups, or [...] Description 11/23/2024 11:40 AM EDT Office Visit [facility] [place] [address] [place] [address] Indu Grimes MD [address] [place] [address] 12/08/2024 9:40 AM EDT Office Visit [facility] [place] Greg [address] [facility] [place] [address] Sylvetser Farr MD [address] [place] [address] documented as of this encounter Visit Diagnoses Not on filedocumented in this encounter Additional Health Concerns Assessment Noted Time A fall risk assessment has been complete d for the patient 01/07/2024 11:10 AM EDT A Body Mass Index follow-up plan has been documented for the patient 01/07/2024 11:52 AM EDT documented as of this encounter Care Teams Nutrition Worker Relationship Specialty Start Date End Date Charles Barrett MD [address] [place] [address] PCP - General 09/11/21 documented as of this encounter
--- OUTSIDE RECORDS SUMMARY | 2024-11-16 15:08 | XMS_ITS | Patient Health Record ---
Author Organization [facility], [facility] Address [address] [place] [address] Care Team Providers Care Quick Sketch Artist Name Role Phone Joy PUENTES, Fran Primary Care Provider Piero Miranda MD, [facility] Unavailable [phone] Allergies Allergen (clinical drug ingredient) Drug/Non Drug [...] Anemia due to chronic blood loss (disorder) (600991952) Iron deficiency anemia secondary to blood loss (chronic) (D50.0) 05/03/19 Active confirmed Problem Gastro-esophageal reflux disease without esophagitis (608740997) Gastro-esophag eal reflux disease without esophagitis (K21.9) 06/01/19 Active confirmed Problem Gastroduodenitis (480329414) Gastritis, unspecified, without bleeding (K29.70) 06/01/19 Active confirmed Problem Heartburn (29870886) Heartburn (R12) 05/03/19 Active confirmed Problem Dysphagia (70076550) Dysphagia, unspecified (R13.10) 06/01/19 Active confirmed Problem History of bariatric surgical procedure (052263664) Bariatric surgery status (Z98.84) 06/01/19 Active confirmed Vital Signs Heart Rate 80 /min 05/31/2024 Blood pressure diastolic 77 mm Hg 05/31/2024 Height 61 in 05/03/2024 Blood pressure systolic 140 mm Hg 05/31/2024 Weight 145 lbs 05/31/2024 BMI 27.39 kg/m2 05/03/2024 Procedures Procedure Date Ordered Date Performed Result Body Sit e EGD 05/03/2024 N/A Encounters Encounter Location Date Provider Diagnosis [facility] [address] [place] [address] 05/05/2024 Negro Hamiltontracy [facility], [facility] [address] [place] [address] 05/03/2024 Negro Miranda Iron deficiency anemia secondary to blood loss (chronic) D50.0 and Heartburn R12 [facility], [facility] [address] [place] [address] 05/31/2024 Negrotom Villasenortracy Gastro-esophageal reflux disease without [...] foods. Also discussed with the patient the shelter side effects of PPI use which include [...] foods. Also discussed with the patient the shelter side effects of PPI use which include [...] 09/29/2028 11:00:00 AM, [address], [place], [address], Insurance Providers Payer Name Payer Address Payer Phone Subscriber Number Group Number Insured Name Patient Relationship to Insured Coverage Start Date Coverage End Date MEDICARE [address] [place] [address] [id number] Sandra, Dagmar Self - patient is the insured [facility] [address] [place] [address] [id number] Dagmar Flores Self - patient is the [...]
--- OUTSIDE RECORDS SUMMARY | 2024-11-16 15:08 | XMS_ITS | Referral Summary ---
Author Organization [facility] ([place], [place], [place], [place]) Address [address] [place] [address] Care Team Providers Care Window Glazier Helper Name Role Phone Charles Barrett MD Primary Care Provider +1- [phone] Encounters Date Type Department Care Team Description 11/03/2024 Travel from Last 3 Months Allergies Active Allergy Reactions Criticality Noted Date [...] 0.6 oz pur e alcohol) wine weekly Employment Answer Date Recorded Help finding and keeping a job Not on file 0 03/27/2023 Family and Community Support Answer Rosalio e Recorded Help with Day to Day Activities Not on file 03/27/2023 Feeling Lonely or Isolated Not on file 03/27 Educational Attainment Answer Date Jarrett rded Speak language other than Sierra Leonean at home Not on file 03/27/2023 Want [...] 10/31/2023 4:33 PM EDT Plan of Treatment Not on file Procedures Procedure Name Priority Date/Time Associated Diagnosis [...] the next mammogram. At our facility, a [employer] [place] marker is positioned over a visible skin [...] the benefit of computer aided detection (CAD). Chalres Barrett MD IMG MAMMOGRAPHY ORDERABLES Final Result from Last 3 Months or Most Recently Relevant to Health Maintenance Insurance [place]ICARE [place] [address] [place] [address] CROSS/BLUE SHIELD Care Teams Window Glazier Helper Relationship Specialty Start Date End Date Charles Barrett MD [address] [place] [facility] [address] [place] [address] PCP - General Family Medicine 11/19/22
--- OUTSIDE RECORDS SUMMARY | 2024-11-16 15:08 | XMS_ITS | Clinical Summary ---
Author Organization [facility] ([place], [place], [place], [place]) Address [address] [place] [address] Care Team Providers Care Supervisor Contact Lens Name Role Phone Charles Barrett MD Primary Care Provider +1- [phone] Allergies Active Allergy Reactions Criticality Noted Date Comments Codeine Rash,Itching,Hives,O ther (See Comments) High 11/11/2012 1Patient states she tolerates morphine Hydromorphone Itching,Hives High 11/11/2012 Medications No known medications Encounters Date Type Department Care Team Description 11/03/2024 Travel from Last 3 Months Social History Tobacco Use Types Packs/Day Years [...] Date Jarrett rded Speak language other than Jordanian at home Not on file 03/27/2023 Want [...] 10/31/2023 4:33 PM EDT Plan of Treatment Health Maintenance Due Date Last Done Comments DXA SCAN 1948 Depression Screening (12+) 1960 Hepatitis C Screening 1966 Medicare Initial AWV [id number] 06/09/1999 Shingles Vaccine (Zoster) (2 of 2) 12/07/2008 10/12/2008 Respiratory Syncytial Virus (RSV) Adult or (1 - 1-dose 75+ series) 06/22/2023 Falls Risk Screening 03/09/2024 Tobacco Cessation Counseling and Screening (12+) 10/30/2024 10/31/2023 COVID-19 VACCINE (2024-2 6 season) 2024 02/05/2022, 11/27/2021, 07/01/2021, Additional history exists Influenza Vaccine (#1) 2024 , 11/24/2022, 11/22/2019, Additional history exists DTAP/TDAP/TD VACCINES (3 - T d or [...] the next mammogram. At our facility, a [place] marker is positioned over a visible skin [...] cancer. COMPARISON STUDY: 2022 through 2014 from [facility] FINDINGS: Craniocaudal and mediolateral oblique images [...] PART A B CROSS/BLUE SHIELD Care Teams Supervisor Contact Lens Relationship Specialty Start Date End Date Charles Barrett MD [address] [facility] [address] [place] [address] PCP - General Family Medicine 11/19/22
--- OUTSIDE RECORDS SUMMARY | 2024-11-16 15:08 | XMS_ITS | Clinical Summary ---
Author Organization [facility] Address [address] [place] [address] Care Team Providers Care Event Sales Manager Name Role Phone Charles Barrett MD Primary Care Provider [phone] Allergies Active Allergy Reactions Criticality Noted Date [...] virus 12/10/2023 Facet arthropathy 12/10/2023 History of [place] (myocardial infarction) 12/10/2023 Lumbar spondylosis 12/10/2023 Status [...] joint prosth esis 04/02/2023 Current use of emt intermediate anticoagulation 023 Pacemaker generator end of life 11/12/2022 Osteoarthritis of right knee 05/27/2022 Arthritis of right knee 05/22/2022 Overview (12/03/2023): Added automatically from request for surgery [id number] 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 Overview (07/14/2024): Unilateral primary [...] (11/06/2021): Added automatically from request for surgery [id number] SSS (sick sinus syndrome) 09/30/2021 Hypotension, unspecified [...] Acute diastolic heart failure 08/28/2021 08/28/2021 Old [place] (myocardial infarction) 08/28/2021 08/07/2022 Encounters Date Type Department Care Team Description 10/10/2024 3:15 PM EDT - 10/10/2024 11:59 PM EDT Hospital Encounter Cardiac Imaging [address] [place] [address] Pacemaker Discharge Disposition: Home or Self Care [...] Evan CVA Mother Ida Evan Diabetes Mother Iad Evan Heart failure Mother Ida Evan Pancreatic [...] week 11/25/2023 How often do you attend [facility] or [facility]? More than 4 times per year 11/25/2023 Do you belong to any clubs o r organizations such as zoroastrian groups, unions, fraternal or athletic groups, or [...] Description 11/23/2024 11:40 AM EDT Office Visit [facility] [place] [address] [place] [address] Indu Grimes MD [address] [place] [address] 12/08/2024 9:40 AM EDT Office Visit [facility] [address] [place] [address] Sylvester Farr MD [address] [place] [address] Health Maintenance Due Date Last Done Comments [facility]-Bone Density Scan 1950 [facility]-Medicare Annual Wellness (AWV) 1950 [facility]-/Child/Adol SDOH Screenings 1950 Diabetes: Dental Exam 1958 [facility]-Zoster Vaccines (2 of 3) 12/06/2008 10/11/2008 [facility]-RSV Vaccine: 60+ Years or (1 - 1-dose 75+ series) 06/22/2023 [facility]- SDOH Screenings 05/22/2024 [facility]-Adult SDOH Screenings 05/22/2024 11/23/2023 [facility]-Diabetes: Hemoglobin A1C 05/22/2024 11/23/2023 [id number] Vaccine (9 - Pfizer risk 2023- season) [...] this topic Medical Devices Implanted Type Area Collections Representative Device Identifier Shelf Expiration Date Model / Serial / Lot Pacemaker Assurity Mri Dr - [id number] Implanted:Qty: 1 on 11/13/2022 by Indu Grimes MD at [facility] [id number] 03/08/2024 [id number] / [id number] Envelope Tyrx Pm Medium - [id number] Implanted:Qty: 1 on 11/13/2022 by Indu Grimes MD at [facility] [id number] 08/02/2023 [id number] / / [id number] Procedures Procedure Name Priority Date/Time Associated Diagnosis [...] duration 28 min 36 sec, on Eliquis [place] 5.3% S/p AVN ablation us Elyssa Ambriz BARBY CV IMPLANTABLE CARDIAC DEV ICE PROCEDURES Final Result * (ABNORMAL) Hemoglobin A1c (11/23/2023 5:15 AM EDT) Hemoglobin A1c 6.4(H) <5.7 % 11/23/2023 6:[address] [facility] Blood Venous blood specimen / Unknown Venipuncture / Unknown 11/23/2023 5:15 AM EDT 11/23/2023 5:[address] [facility] - 11/23/2023 6:44 AM EDT HA1C Interpretive Data: Diagnosis of Diabetes: Diabetic > or = 6.5% Pre-diabetic 5.7 to 6.4% Non-diabetic < or = 5.6% Glycemic Targets for Type I and Type II Diabetics: Non- Adults <7.0% Adults <6.0% Children and Adolescents <7.5% Source: [place] [employer]. Standards of medical care in diabetes,2017. Diabetes Care.2017:40 (suppl 1):S1-S135. HbA1c assay performed by an ion-exchange chromatography method that is certified traceable to the DCCT. us Zackary Gao MD LAB BLOOD ORDERABLES Final Result [facility] [address] [place] [address] * Hepatitis C Antibody - ED (11/22/2023 11:36 AM EDT) Hepatitis C Antibody Negative Negative 11/22/2023 12:[address] [facility] Blood Venous blood specimen / Unknown Venipuncture / Unknown 11/22/2023 11:36 AM EDT 11/22/2023 12:13 PM EDT Mono Ray MD LAB BLOOD ORDERABLES Final Result [facility] [address] [place] [address] from Last 3 Months or Most Recently [...] Patient has decision-making capacity? Yes Care Teams Event Sales Manager Relationship Specialty Start Date End Date Charles Barrett MD [address] [place] [address] PCP - General 09/11/21
--- OUTSIDE RECORDS SUMMARY | 2024-11-16 15:09 | XMS_ITS | Patient Health Record ---
[facility] Organization [facility] Address [address] [place] [id number] Care Team Providers Care It Programmer Analyst Name Role Phone Arjun Barrett Primary Care Provider [phone] Dai Avalos Unavailable [phone] Allergies Allergen (clinical drug ingredient) Drug/Non Drug [...] reviewed by provider) Interpretation: Performing Lab: Notes/Report: Mammogram, Bilateral Diagnos tic Reviewed date:11/15/2024 12:49:09 PM Interpretation: Performing Lab: Notes/Report: P-Vitamin B12 Reviewed date:11/08/2024 08:50:00 AM Interpretation:773 Performing Lab: Notes/Report: Test performed by [facility] [address] [place] [address] , [place] [address] En Gutierrez MD, Horse Stud Manager CLIA: [id number] Vitamin B12 [phone] pg/mL X ray : Pelvis Reviewed date:12/21/2023 [...] review and pick correct strength-formulati on from [employer] options. If intended option is not [...] review and pick correct strength-formulati on from [employer] options. If intended option is not [...] (65yr and older) IM Intramuscular 11/14/2024 Administered Fluzone PF Quad (6-35 months) Unknown [...] W/U Status Risk Notes Problem Coronary arteriosclerosis (60693553) ASCVD (arteriosclerotic cardiovascular disease) (I25.10) Active confirmed Problem Insomnia (303245811) Insomnia (G47.00) Active confirmed Problem Anemia (686040760) Anemia (D64.9) Active confir med Problem Asthma (092481479) Asthma (J45.909) Active conf irmed Problem Mixed anxiety and depressive disorder (410286573) Depression with anxiety (F41.8) Active confirmed Problem Seizure disorder (269773635) Seizure disorder (G40.909) Active confirmed Problem 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 (9463519) 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) Active confirmed Problem Chronic pain syndrome (303917523) Chronic pain syndrome (G89.4) Active confirmed Problem Chronic atrial fibrillation (961291364) Chronic atrial fibrillation (I48.2) Active confirmed Problem Heart disease (49333043) Heart disease, unspecified (I51.9) Active confirmed Problem Old myocardial infarction (8620513) History of [place] (myocardial infarction) (I25.2) Active confirmed Problem Cardiac pacemaker in situ (239412977) Pacemaker (Z95.0) Active confirmed Problem Primary osteoarthritis (958797981) Primary osteoarthritis involving multiple joints (M15.0) Active confirmed Problem Gastroesophageal reflux disease (402292138) Gastroesophageal reflux disease, esophagitis presence not specified (K21.9) Active confirmed Problem Dyslipidemia (421509478) Dyslipidemia (E78.5) Active confirmed Problem Transient ischemic attack (279318957) TIA (transient ischemic attack) (G45.9) Active confirmed Problem Artificial knee joint present (258319540569) Status post right knee replacement (Z96.651) Active confirmed Problem Asthma without status asthmaticus (99793494) Asthma, unspecified asthma severity, unspecified whether complicated, unspecified whether persistent (J45.909) Active confirmed Problem Diabetic peripheral neuropathy associated with type 2 diabetes mellitus (1609196179147) Type 2 diabetes mellitus with diabetic neuropathy, unspecified whether prison insulin use (E11.40) Active confirmed Problem Chronic atrial fibrillation (003997049) Chronic atrial fibrillation (I48.20) Active confirmed Vital Signs Heart Rate 72 /min 11/14/2024 Blood pressure diastolic 60 mm Hg 11/14/2024 Height 60 in 11/14/2024 Blood pressure systolic 120 mm Hg 11/14/2024 Weight 145 lbs 11/14/2024 BMI 28.32 kg/m2 11/14/2024 Encounters Encounter Location Date Provider Diagnosis [facility] [address] [place] [id number] 12/14/2023 Dai Avalos Hip pain M25.559 [facility] [address] [id number] 01/05/2024 Arjun Pablo Arnold Fall W19.XXXA and Ra dial fracture S52.90XA [facility] [address] [place] [id number] 08/25/2024 R Samy Barrett Adult general medica l examination Z00.00 ; Dyslipidemia E78.5 ; Anemia D64.9 ; Osteopenia M85.80 ; Primary osteoarthritis involving multiple joints M15.0 ; Depression with anxiety F41.8 ; Chronic atrial fibrillation I48.20 ; Asthma J45.909 ; Insomnia G47.00 ; Seizure disorder G40.909 ; Type 2 diabetes mellitus with diabetic neuropathy, unspecified whether prison insulin use E11.40 ; BMI 27.0-27.9,adult Z68.27 ; Pacemaker Z95.0 and Gastroesophageal reflux disease, esophagitis presence not specified K21.9 [facility] [address] [place], [place] [id number] 11/01/2024 R Samy Arnold Vitamin B12 deficien cy E53.8 and Syncope R55 [facility] [address] [facility] [address] [place], [place] [id number] 11/14/2024 Dai Avalos Acute bilateral low back pain without sciatica M54.50 ; Acute pain of left knee M25.562 ; Acute pain of left hip M25.552 and Encounter for immunization Z23 [facility] [address] [place], [place] [id number] 12/14/2023 R Samy Arnold [facility] [address] [facility] [address] [place], [place] [id number] 08/11/2024 R Samy Arnold [facility] [address] [facility] [address] [place] [id number] 08/31/2024 R Samy Arnold [facility] [address] [place], [place] [id number] 09/13/2024 R Samy Arnold [facility] [address] [place], [place] [id number] 11/03/2024 R Samy Arnold [facility] [address] [facility] [address] [place], [place] [id number] 11/08/2024 R Samy Arnold Assessments Encounter Date [...] diabetes mellitus with diabetic neuropathy, unspecified whether long term acute care registered nurse insulin use (ICD-10 - E11.40) 08/25/2024 BMI [...] ray : Spine, sacrum and coccyx 025 Insurance Providers Payer Name Payer Address Payer Phone Subscriber Number Group Number Insured Name Patient Relationship to Insured Coverage Start Date Coverage End Date MEDICARE PART B [address] [address] [place] [address] [id number] Dagmar Flores Self - patient is the insured [employer] [address] [place] [address] [id number] Dagmar Flores Self - patient is the [...] Colonoscopy/ diverticulosis/ [place] 2023 [place] total knee/ [place] 2024 [place] total hip/ [place] 2024 Hospitalization History Reason Date(Month/Year) [facility] ER - Fall- [place] 12/30/2023 [facility] ER - syncope 10/28/2019 [facility] ER-syncope 10/24/2019 [facility] ER-seizure, passed out 03/2019
--- OUTSIDE RECORDS SUMMARY | 2024-11-16 15:10 | XMS_ITS | Patient Health Record ---
Author Organization [facility] Address [address] [place] [address] Care Team Providers Care Lozenge Maker Name Role Phone Fran Hamilton M.D. Primary Care Provider Unavailab VIKI Whitman Unavailable [facility] Unavailable [phone] Allergies Allergen (clinical drug ingredient) Drug/Non Drug [...] W/U Status Risk Notes Problem Orthostatic hypotension (87770064) Orthostatic hypotension (I95.1) Active confirmed Problem Palpitations (91882494) Palpitations (R00.2) Active confirmed Problem Hypertension (28439077) Hypertension (I10) Active confirmed Problem Cardiomyopathy (38044402) Cardiomyopathy (I42.9) Active confirmed Problem Aortic valve disorder (7289494) Nonrheumatic aortic valve insufficiency (I35.1) Active confirmed Problem Left ventricular diastolic dysfunction (634550650) Left ventricular diastolic dysfunction (I51.9) Active confirmed Problem Sinus node dysfunction (41792057) SSS (sick sinus syndrome) (I49.5) Active confirmed Problem Cardiac pacemaker in situ (217442298) Artificial pacemaker (Z95.0) Active confirmed Problem Old myocardial infarction (2892786) Myocardial infarction greater than 8 weeks ago (I25.2) Active confirmed Problem Bilateral atherosclerosis of arteries of lower limbs (disorder) (21893287546323471 ) Atherosclerosis of artery of both lower extremities (I70.203) Active confirmed Problem Hyperlipidemia (96513000) Hyperlipidemia (E78.5) Active confirmed Problem Coronary artery disease (63548095) Coronary artery disease (I25.10) Active confirmed Problem Atrial fibrillation (65923529) PAF (paroxysmal atrial fibrillation) (I48.0) Active confirmed Problem Cardiomegaly (4028204) Atrial enlargement, left (I51.7) Active confirmed Problem Non-rheumatic mitral regurgitation (575515652) Nonrheumatic mitral valve regurgitation (I34.0) Active confirmed Problem Overweight (842306959) Overweight (BMI 25.0-29.9) (E66.3) Active confirmed Problem Tricuspid valve regurgitation, nonrheumatic (344534083) Tricuspid valve regurgitation, nonrheumatic (I36.1) Active confirmed Problem Aortic valve disorder (0802571) 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) Active confirmed Problem Cardiac syndrome X (finding) (529701880) 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) Active confirmed Vital Signs Heart Rate 77 /min 06/30/2024 Oximetry 99 % 06/30/2024 Blood pressure diastolic 60 mm Hg 06/30/2024 Height 61 in 06/30/2024 Blood pressure systolic 110 mm Hg 06/30/2024 Weight 139 lbs 06/30/2024 BMI 26.26 kg/m2 06/30/2024 Encounters Encounter Location Date Provider Diagnosis [facility] [address] [address] 06/30/2024 Coco Arun Coronary artery dise ase [...] nonrheumatic I36.1 and Nonrheumatic aortic sclerosis I35.8 [facility] [address] [place] [address] 01/21/2024 VIKI MCPHERSON Coronary artery disease I25.10 [...] of artery of both lower extremities I70.203 [facility] [address] [place] [address] 02/18/2024 VIKI RG MCPHERSON [facility] [address] [place] [address] 01/18/2024 VIKI RG VIDA [facility] [address] [place] [address] 01/18/2024 VIKI RG VIDA [facility] [address] [place] [address] 12/31/2023 VIKI MCPHERSON Assessments Encounter Date Diagnosis (ICD [...] PAF (paroxysmal atrial fibrillation) (ICD-10 - I48.0) [id number] Vasc Score of 4. On AC Eliquis. Following with EP in [place] who recommended to hold Multaq and monitor on PPM Afib burden Mg++ 2.2 (06/20/2024) 01/21/2024 PAF (paroxysmal atrial fibrillation) (ICD-10 - I48.0) [id number] Vasc Score of 4. On AC Eliquis. Following with EP in [place] who recommended to hold Multaq and monitor [...] 11/2022. This is monitored by EP in [place] 06/30/2024 SSS (sick sinus syndrome) (ICD-10 - I49.5) S/P Pacemaker Implantation w/[facility]. Gen change 11/2022. This is monitored by EP in [place] 01/21/2024 Hyperlipidemia (ICD-10 - E78.5) Continue Statin [...] to the patient/family/car egiver. Coco Dias APRN, RESIDENTIAL ROOFER HELPER-C Plan Of Treatment Next Appt Details Provider Name:VIKI Ruy MCPHERSON, 01/18/2025 03:00:00 PM, [address] [address], [facility] [address], [place], [address], Insurance Providers Payer Name Payer Address Payer Phone Subscriber Number Group Number Insured Name Patient Relationship to Insured Coverage Start Date Coverage End Date Medicare of [place] / [facility] [address] [address] [place] [address] [id number] Dagmar Flores Self - [place] [address] [phone] [id number] Dagmar Flores Self - patient is the [...]
--- OUTSIDE RECORDS SUMMARY | 2024-11-16 15:10 | XMS_ITS | Patient Health Record ---
Author Organization [facility] Address [address] [address] Care Team Providers Care Art Dealer Name Role Phone Joy PUENTES, Fran Primary Care Provider UnavailWade Lamb Unavailable [phone] Migration, Provider Unavailable Unavailable Allergies Allergen (clinical [...] Active Encounters Encounter Location Date Provider Diagnosis [facility] [address] [facility] [address] [place] [address] 09/17/2024 Provider Migration Plan Of Treatment No Information Insurance Providers Payer Name Payer Address Payer Phone Subscriber Number Group Number Insured Name Patient Relationship to Insured Coverage Start Date Coverage End Date Medicare Part B [address] [place] [address] [id number] IDA MOTELY Self - patient is the insured 4 [facility] [address] [place] [address] [id number] ROSY MOTLEY Spouse - patient is the spouse of the insured 5 Medical (General) History Medical History History ICD Code Angina Atrial Fibrillation fractures Esophageal reflux heart murmur Hyperlipidemia pneumonia Respiratory Disease Arthritis Bronchitis Type II diabetes Congestive Heart Failure Edema heart disease Seizures ulcers Surgical History Surgery Date(Month/Year) bariatic surgery Tonsillectomy Appendectomy Hysterectomy Pacemaker
--- OUTSIDE RECORDS SUMMARY | 2024-11-16 15:10 | XMS_ITS | Patient Health Record ---
Author Organization [facility] Address [address] [place] [address] Care Team Providers Care Beauty Advisor Name Role Phone MAX LOPEZ Primary Care Provider [phone] HENRRY CONNORS Unavailable [phone] Kolton Vazquez Unavailable [phone] Ashlee Argueta Unavailable [phone] Paulina Roque Unavailable [phone] Allergies Allergen (clinical drug ingredient) Drug/Non Drug Allergy documented on EMR Reaction Allergy Type Onset Date Status Aspirin (ASA) Gastric ulcer Drug Allergy Active Codeine Unknown Drug Allergy 04/25/2005 Active hydromorphone Dilaudid Unknown Drug Allergy 04/25/2005 Ac tive trazodone traZODone HCl headache Drug Allergy 01/23/2021 Ac tive Results Component Value Reference Range Flag Notes CT Scan : Head, without cont rast [...] date:01/07/2024 02:12:25 PM Interpretation: Performing Lab: Notes/Report: SPECIMEN INTEGRITY COMPROMIS ED Reviewed date:03/18/2024 12:04:23 PM Interpretation: Performing Lab:Josi LARAa4225 [address] [place] Matthew Jameson MD Notes/Report: FASTING: UNKNOWN SPECIMEN INTEGRITY COMPROMISED Whole blood, unspun or partially spun gel barrier tube was received more than 6 hours since collection. A false elevation of K, Phos and LD as well as a false decrease in glucose may occur due to prolonged contact with red cells. CBC/Diff Ambiguous Default Reviewed date:03/28/2024 01:34:05 PM Interpretation: Performing Lab:Josi LARAa4225 [address] [place] Matthew Jameson MD Notes/Report: FASTING: [...] 10.1 7.5-12.5 fL N ABSOLUTE NEUTROPHILS 2348 1263-3575 cells/uL N ABSOLUTE LYMPHOCYTES 7265 800-7753 cells/uL N ABSOLUTE MONOCYTES 361 200-950 cells/uL N ABSOLUTE EOSINOPHILS 101 15-500 cells/uL N ABSOLUTE BASOPHILS 21 0-200 cells/uL N NEUTROPHILS 55.9 N LYMPHOCYTES 32.6 N MONOCYTES 8.6 N EOSINOPHILS 2.4 N BASOPHILS 0.5 N CBC/Diff Ambiguous Default Reviewed date:01/21/2024 08:23:56 AM Interpretation: Performing Lab:TP, [id number], JtnzhUL[address] Matthew Jameson MD Notes/Report: FASTING WHITE BLOOD [...] 9.5 7.5-12.5 fL N ABSOLUTE NEUTROPHILS 2698 1139-7772 cells/uL N ABSOLUTE LYMPHOCYTES 3942 355-7571 cells/uL N ABSOLUTE MONOCYTES 367 200-950 cells/uL N ABSOLUTE EOSINOPHILS 97 15-500 cells/uL N ABSOLUTE BASOPHILS 61 0-200 cells/uL N NEUTROPHILS 52.9 N LYMPHOCYTES 36.8 N MONOCYTES 7.2 N EOSINOPHILS 1.9 N BASOPHILS 1.2 N URINALYSIS, COMPLETE Reviewed date:01/20/2024 08:01:28 AM Interpretation: Performing Lab: Notes/Report: URINALYSIS, COMPLETE Reviewed date:01/20/2024 08:01:28 AM Interpretation: Performing Lab: Notes/Report: Lipid Panel Reviewed date:01/19/2024 09:21:45 AM Interpretation: Performing Lab:JANE [facility]-Nncew[address] SmrfiTX[address] Matthew Jameson MD Notes/Report: FASTING CHOLESTEROL, TOTAL [...] LDL-C. Jack SS et al. TRISH. 2013;310(19): 1384-4302 (http://education.Hello Market.com/faq /UBU906) CHOL/HDLC RATIO 2.4 <5.0 (calc) N NON HDL CHOLESTEROL 100 <130 mg/dL (calc) N For patients with diabetes plus 1 major ASCVD risk factor, treating to a non-HDL-C goal of <100 mg/dL (LDL-C of <70 mg/dL) is considered a therapeutic option. Hemoglobin A1c Reviewed date:01/21/2024 08:24:03 AM Interpretation: Performing Lab:Josi LARA-Thndb[address] SvwjtHX[address] Matthew Jameson MD Notes/Report: FASTING HEMOGLOBIN A1c [...] A1c for diagnosis of diabetes for children. COMPREHENSIVE METABOLIC PANE L Reviewed date:07/01/2024 10:47:02 AM Interpretation: Performing Lab:JANE [facility] BzaukDN[address] Matthew Jameson MD Notes/Report: FASTING: UNKNOWN GLUCOSE [...] U/L N ALT 5 6-29 U/L L CBC/Diff Ambiguous Default Reviewed date:07/01/2024 10:46:42 AM Interpretation: Performing Lab:JANE [facility]Xcham[address] JrjzjRA[address] Matthew Jameson MD Notes/Report: FASTING: UNKNOWN WHITE [...] 10.2 7.5-12.5 fL N ABSOLUTE NEUTROPHILS 3582 2220-6744 cells/uL N ABSOLUTE LYMPHOCYTES 2035 850-3900 cells/uL N ABSOLUTE MONOCYTES 566 200-950 cells/uL N ABSOLUTE EOSINOPHILS 267 15-500 cells/uL N ABSOLUTE BASOPHILS 52 0-200 cells/uL N NEUTROPHILS 55.1 N LYMPHOCYTES 31.3 N MONOCYTES 8.7 N EOSINOPHILS 4.1 N BASOPHILS 0.8 N VITAMIN B12/FOLATE, SERUM PA LINDA Reviewed date:07/01/2024 10:47:53 AM Interpretation: Performing Lab:JANE [facility]-Jyejc[address] [id number] Matthew Jameson MD Notes/Report: FASTING: UNKNOWN VITAMIN B12 604 239-5664 pg/mL N FOLATE, SERUM 6.3 N Reference Range Low: <3.4 Borderline: 3.4-5.4 Normal: >5.4 IRON, TOTAL Reviewed date:07/01/2024 10:46:27 AM Interpretation: Performing Lab:TP [facility]-Bhljg[address] [id number] Matthew Jameson MD Notes/Report: FASTING: UNKNOWN IRON, TOTAL 30 45-160 mcg/dL L Ferritin, Serum Reviewed date:07/01/2024 10:47:40 AM Interpretation: Performing Lab:TP, [facility]-Xbdod[address] UcduxJR[address] Matthew Jameson MD Notes/Report: FASTING: UNKNOWN FERRITIN 68 16-288 ng/mL N COMPREHENSIVE METABOLIC PANE L Reviewed date:02/09/2024 12:19:33 PM Interpretation: Performing Lab:JANE [facility] [address] [id number] Matthew Jameson MD Notes/Report: 0; 0; 0 [...] U/L N ALT 6 6-29 U/L N REFLEXIVE URINE CULTURE Reviewed date:02/11/2024 03:55:32 PM Interpretation: Performing Lab:Josi LARA [id number] Matthew Jameson MD Notes/Report: 0 FASTING:NO FASTING: NO REFLEXIVE URINE CULTURE N O CULTURE INDICATED TSH+FREE T4 Reviewed date:03/18/2024 12:04:23 PM Interpretation: Performing Lab:Josi LARA [place] Matthew Jameson MD Notes/Report: FASTING: UNKNOWN TSH 1.18 0.40-4.50 mIU/L N T4, FREE 0.9 0.8-1.8 ng/dL N CBC/Diff Ambiguous Default Reviewed date:03/16/2024 08:41:30 AM Interpretation: Performing Lab:JANE [facility]isw[address] EopimLP[address] Matthew Jameson MD Notes/Report: FASTING: UNKNOWN WHITE [...] 9.7 7.5-12.5 fL N ABSOLUTE NEUTROPHILS 3035 5842-9619 cells/uL N ABSOLUTE LYMPHOCYTES 2038 850-3900 cells/uL N ABSOLUTE MONOCYTES 364 200-950 cells/uL N ABSOLUTE EOSINOPHILS 123 15-500 cells/uL N ABSOLUTE BASOPHILS 39 0-200 cells/uL N NEUTROPHILS 54.2 N LYMPHOCYTES 36.4 N MONOCYTES 6.5 N EOSINOPHILS 2.2 N BASOPHILS 0.7 N COMPREHENSIVE METABOLIC PANE L Reviewed date:03/16/2024 08:41:15 AM Interpretation: Performing Lab:JANE [facility] Aysha-Mpgif[address] NzivwFH[address] Matthew Jameson MD Notes/Report: FASTING: UNKNOWN GLUCOSE [...] to hemolysis. ALT 7 6-29 U/L N EKG Reviewed date:03/14/2024 03:58:50 PM Interpretation: Performing Lab: Notes/Report: Vitamin B12 Reviewed date:02/09/2024 12:34:12 PM Interpretation: Performing Lab:JANE V[facility] Levia[address] [place] Matthew Jameson MD Notes/Report: 0; 0; 0 FASTING:NO FASTING: NO VITAMIN B12 657 267-1401 pg/mL N Folate (Folic Acid), Serum- Reviewed date:02/09/2024 12:34:12 PM Interpretation: Performing Lab:JANE [facility] Levia4Jessie MandujanoL[address] Matthew Jameson MD Notes/Report: 0; 0; 0 FASTING:NO FASTING: NO FOLATE, SERUM 6.2 N Reference Range Low: <3.4 Borderline: 3.4-5.4 Normal: >5.4 Ferritin, Serum Reviewed date:02/09/2024 12:34:12 PM Interpretation: Performing Lab:JANE [facility] Levia4Prerna [place]ujanoaFL[address] Matthew Jameson MD Notes/Report: 0; 0; 0 FASTING:NO FASTING: NO FERRITIN 25 16-288 ng/mL N IRON, TOTAL Reviewed date:02/11/2024 03:55:11 PM Interpretation: Performing Lab:JAEN VDP Levia4Prerna [place]ujanoaFL[address] Matthew Jameson MD Notes/Report: 0 FASTING:NO FASTING: NO IRON, TOTAL 58 45-160 mcg/dL N Esophagogastroduodenoscopy ( EGD) Reviewed date:05/09/2024 10:21:03 AM Interpretation: Performing Lab: Notes/Report: Pathology Report Reviewed date:05/19/2024 08:18:15 AM Interpretation: Performing Lab: Notes/Report: Echocardiogram, transthoraci c Reviewed date:06/30/2024 08:28:19 AM Interpretation: Performing Lab: Notes/Report: CT Scan : Brain Reviewed date:06/30/2024 08:28:25 AM Interpretation: Performing Lab: Notes/Report: X ray : CHEST PA LATERAL Reviewed date:06/30/2024 08:28:30 AM Interpretation: Performing Lab: Notes/Report: Carotid Ultrasound Reviewed date:06/30/2024 08:28:35 AM Interpretation: Performing Lab: Notes/Report: X ray : Pelvis Reviewed date:06/30/2024 08:28:40 AM Interpretation: Performing Lab: Notes/Report: CT Scan : Chest Reviewed date:01/26/2024 01:56:14 PM Interpretation: Performing Lab: Notes/Report: COMPREHENSIVE METABOLIC PANE L Reviewed date:01/19/2024 12:40:01 PM Interpretation: Performing Lab:TP, [facility]-Fquzx[address], LkdmtDI[address] Matthew Jameson MD Notes/Report: FASTING GLUCOSE 87 [...] U/L N ALT 7 6-29 U/L N URINE CULTURE Reviewed date:02/11/2024 03:52:47 PM Interpretation: Performing Lab:Josi LARA-Lwswf[address] PdcguPY[address] Matthew Jameson MD Notes/Report: 0 FASTING:NO FASTING: [...] Reviewed date:02/11/2024 03:52:15 PM Interpretation: Performing Lab:Josi LARA-Gydns[address], NmymiXV[address] Matthew Jameson MD Notes/Report: 0; 0; 0 FASTING:NO FASTING: NO PARTIAL THROMBOPLASTIN TIME, ACTIVATED 28 23-32 sec N This test has not been validated for monitoring unfractionated heparin therapy. For testing that is validated for this type of therapy, please refer to the Heparin Anti-Xa assay (test code 10780). For additional information, please refer to http://education.MyWants/faq/ GHC267 (This link is being provided for informational/educati onal purposes only.) INR 1.1 N Reference Range 0.9-1.1 Moderate-intensity Warfarin Therapy 2.0-3.0 Higher-intensity Warfarin Therapy 3.0-4.0 PT 11.5 9.0-11.5 sec N CBC/Diff Ambiguous Default Reviewed date:02/09/2024 12:21:03 PM Interpretation: Performing Lab:JANE [facility] Aysha-Shcxt[address] RahmvWP[address] Matthew Jameson MD Notes/Report: 0; 0; 0 [...] 10.0 7.5-12.5 fL N ABSOLUTE NEUTROPHILS 3214 0432-2843 cells/uL N ABSOLUTE LYMPHOCYTES 3601 494-6862 cells/uL N ABSOLUTE MONOCYTES 390 200-950 cells/uL N ABSOLUTE EOSINOPHILS 62 15-500 cells/uL N ABSOLUTE BASOPHILS 31 0-200 cells/uL N NEUTROPHILS 61.8 N LYMPHOCYTES 28.9 N MONOCYTES 7.5 N EOSINOPHILS 1.2 N BASOPHILS 0.6 N Urine analysis (IH) Reviewed date:01/25/2024 03:47:13 PM Interpretation: Performing Lab: Notes/Report: Reason For [...] History Social Info 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 [...] per week How often do you attend [facility] or moravian services? More than 4 times per year [...] Bachelors degree (e.g., MA, MS, Brain, MEd, PHOTOGRAPHIC INTELLIGENCE OFFICER, ALISTAIR) Occupation retired Marital status: # of [...] Status W/U Status Risk Notes Problem Anemia (462508071) Anemia, unspecified (D64.9) Active confirmed Problem Thrombophilia (846826453) Other thrombophilia (D68.69) Active confirmed Problem Type 2 diabetes mellitus with peripheral angiopathy (120592044) Type 2 diabetes mellitus with diabetic peripheral angiopathy without gangrene (E11.51) 018 Active confirmed Problem Mild recurrent major depression (70140662) Major depressive disorder, recurrent, mild (F33.0) Inactive confirmed Problem Moderate recurrent major depression (26988011) Major depressive disorder, recurrent, moderate (F33.1) Active confirmed Problem Affective psychosis (970213996) Unspecified mood [affective] disorder (F39) Inactive confirmed Problem Alzheimer's disease (62983185) Alzheimer's disease, unspecified (G30.9) Active confirmed Problem Obstructive sleep apnea syndrome (disorder) (21336220) Obstructive sleep apnea (adult) (pediatric) (G47.33) 015 Active confirmed Problem Polyneuropathy (25223756) Polyneuropathy, unspecified (G62.9) Inactive confirmed Problem Critical illness myopathy (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) Active confirmed Problem Essential hypertension (66524674) Essential (primary) hypertension (I10) 011 Active confirmed Problem 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) (51689981552966928 ) Atherosclerotic heart disease of [place] coronary artery with other forms of angina pectoris (I25.118) Active confirmed Problem Paroxysmal atrial fibrillation (039048273) Paroxysmal atrial fibrillation (I48.0) Active confirmed Problem Sick sinus syndrome (89693282) Sick sinus syndrome (I49.5) 013 Active confirmed Problem Carotid artery occlusion (112444178) Occlusion and stenosis of unspecified carotid artery (I65.29) 016 Active confirmed [facility]-726 400- Problem Atherosclerosis of aorta (35756365) Atherosclerosis of aorta (I70.0) 014 Active confirmed Problem Allergic rhinitis (91250593) Allergic rhinitis, unspecified (J30.9) 018 Active confirmed Problem Simple chronic bronchitis (77310107) Simple chronic bronchitis (J41.0) 017 Active confirmed Problem Chronic obstructive pulmonary disease (24827772) Chronic obstructive pulmonary disease, unspecified (J44.9) Inactive confirmed Problem Gastro-esophageal reflux disease without esophagitis (731701661) Gastro-esophageal reflux disease without esophagitis (K21.9) Inactive confirmed Problem Disorder of bone (97016735) Other specified disorders of bone density and structure, other site (M85.88) Inactive confirmed Problem Menopause (807849466) Menopausal and female climacteric states (N95.1) Inactive confirmed Problem Heartburn (18914039) Heartburn (R12) Active confirmed Problem Cervix excision (756454906) Acquired absence of cervix with remaining uterus (Z90.712) 015 Problem resolved confirmed Problem Cardiac pacemaker in situ (466969883) Presence of cardiac pacemaker (Z95.0) 016 Active confirmed Problem History of bariatric surgical procedure (657001668) Bariatric surgery status (Z98.84) 011 Problem resolved confirmed Problem Prediabetes (433919748) Prediabetes (R73.03) Inactive confirmed Problem Type II diabetes mellitus without complication (201228435) Type 2 diabetes mellitus without complication, without long-term current use of insulin (E11.9) Inactive confirmed Problem Chronic bronchitis (82211766) Chronic bronchitis, unspecified chronic bronchitis type (J42) Inactive confirmed Problem Alcohol dependence (03808333) Uncomplicated alcohol dependence (F10.20) Active confirmed Problem Osteoarthritis of knee (789159773) Primary osteoarthritis of right knee (M17.11) Active confirmed Problem Senile purpura (64796630) Senile purpura (D69.2) Active confirmed Problem Osteoarthritis of knee (973577081) Primary osteoarthritis of left knee (M17.12) Active confirmed Problem Iron deficiency anemia (70050913) Iron deficiency anemia, unspecified iron deficiency anemia type (D50.9) Active confirmed Problem Anemia (981456488) Anemia, unspecified type (D64.9) Active confirmed Problem Chronic atrial fibrillation (525130052) Chronic atrial fibrillation (I48.20) Inactive confirmed Problem Insomnia (181786976) Insomnia, unspecified type (G47.00) Active confirmed Problem Angina (066725550) Atheroscleros is of [place] coronary artery of [place] heart with angina pectoris (I25.119) Inactive confirmed Problem Hypertensive heart failure (59115551) 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) Active confirmed Problem Seizure (36383986) Seizure (R56.9) Active confi rmed Problem Chronic sinusitis (78390898) Sinusitis, unspecified chronicity, unspecified location (J32.9) Inactive confirmed Problem Pre-op evaluation (669868092) Pre-op evaluation (Z01.818) Inactive confirmed Problem Localized, primary osteoarthritis of the pelvic region and thigh (226994638) Primary osteoarthritis of left hip (M16.12) Active confirmed Problem Peripheral vascular disease (952458485) PAD (peripheral artery disease) (I73.9) Active confirmed Problem Dyslipidemia (276191525) Dyslipidemia (E78.5) Active confirmed Problem Type 2 diabetes mellitus with other specified complication, without long-term current use of insulin (E11.69) Active confirmed Problem Thrombophilia (051506384) Thrombophilia (D68.59) Inactive confirmed Problem Malignant melanoma of skin (69233063) Malignant melanoma, unspecified site (C43.9) Active confirmed Problem Chronic diastolic heart failure (056490075) Chronic heart failure with preserved ejection fraction (HFpEF) (I50.32) Active confirmed Problem Diastolic heart failure (031577670) Heart failure with preserved left ventricular function [...] [facility] [place] [address] 01/18/2024 MAX LOPEZ Dyslipidemia E78.5 ; Essential (primary) hypertension I10 and Type 2 diabetes mellitus with diabetic peripheral angiopathy without gangrene E11.51 [facility] [address] [place] [address] 01/26/2024 MAX LOPEZ Hospital discharge follow-up Z09 ; Atherosclerotic heart disease of [place] coronary artery with other forms of angina pectoris I25.118 ; Essential (primary) hypertension I10 ; Heart failure with preserved left ventricular function (HFpEF) I50.30 ; Spontaneous ecchymoses R23.3 ; Chronic atrial fibrillation I48.20 ; Pre-op evaluation Z01.818 ; Anemia, unspecified type D64.9 ; Other thrombophilia D68.69 and Simple chronic bronchitis J41.0 [facility] [place] [address] 02/15/2024 MAX LOPEZ Type 2 diabetes pernell itus with diabetic peripheral angiopathy without gangrene E11.51 ; Essential (primary) hypertension I10 ; Dyslipidemia E78.5 and Primary osteoarthritis of left knee M17.12 [facility] [place] [address] 03/14/2024 MAX LOPEZ Primary osteoarthrit is of left knee M17.12 ; Anemia, unspecified type D64.9 ; Heartburn R12 ; Dehydration E86.0 ; Fatigue, unspecified type R53.83 ; Polyarthralgia M25.50 ; Dyslipidemia E78.5 ; Prediabetes R73.03 and Encounter for other administrative examinations Z02.89 [facility] [place] [address] 03/23/2024 MAX LOPEZ Anemia, unspecified type D64.9 ; Essential (primary) hypertension I10 ; Uncomplicated alcohol dependence F10.20 and Heartburn R12 [facility] [place] [address] 05/02/2024 MAX LOPEZ Essential (primary) hypertension I10 ; Anemia, unspecified type D64.9 ; Dyslipidemia E78.5 ; Primary osteoarthritis of left knee M17.12 ; Heartburn R12 ; Major depressive disorder, recurrent, moderate F33.1 ; Primary osteoarthritis of left hip M16.12 ; Seizure R56.9 ; Other specified hypotension I95.89 and Allergic rhinitis, unspecified J30.9 [place] [place] [address] 05/09/2024 Paulina Roque Simple chronic bronc hitis J41.0 ; Sinusitis, unspecified chronicity, unspecified location J32.9 and Other fatigue R53.83 [facility] [address] [place] [address] 05/26/2024 HENRRY PATELRuthie Encounter for genera l [...] menopausal state Z78.0 and BMI 26.0-26.9,adult Z68.26 [facility] [address] [place] [address] 06/30/2024 HENRRY CONNORS Anemia, unspecified D64.9 ; Syncope, unspecified syncope type R55 ; Low serum potassium E87.6 ; B12 deficiency E53.8 ; Left hip pain M25.552 and Hospital discharge follow-up Z09 [facility] [address] [place] [address] 07/18/2024 Kolton Vazquez Essential (primary) hypertension I10 ; Atherosclerotic heart disease of [place] coronary artery with other forms of angina pectoris I25.118 ; Dyslipidemia E78.5 ; Type 2 diabetes mellitus with other specified complication, without long-term current use of insulin E11.69 ; Iron deficiency anemia, unspecified iron deficiency anemia type D50.9 and Major depressive disorder, recurrent, moderate F33.1 [facility] [address] [place] [address] 10/19/2024 MAX LOPEZ [facility] [address] [place] [address] 01/04/2024 MAX LOPEZ [facility] [address] [place] [address] 05/04/2024 MAX LOPEZ [facility] [address] [place] [address] 05/12/2024 MAX LOPEZ [facility] [address] [place] [address] 06/23/2024 MAX LOPEZ [facility] [address] [place] [address] 06/27/2024 MAX LOPEZ Primary osteoarthrit is of left hip M16.12 ; Near syncope R55 ; Critical illness myopathy G72.81 and Hypokalemia E87.6 [facility] [address] [place] [address] 06/30/2024 MAX LOPEZ Assessments Encounter Date Diagnosis (ICD Code) Assessment Notes Treatment Notes Treatment Clinical Notes Section Notes 01/18/2024 Dyslipidemia (ICD-10 - E78.5) 01/26/2024 Atherosclerotic heart disease of [place] coronary artery with other forms of angina [...] DASH diet. 07/18/2024 Atherosclerotic heart disease of [place] coronary artery with other forms of angina [...] reports she did colonoscopy in 2023 in [place]. Will bring info in 2024. 03/23/2024 Uncomplicated [...] passive ROM , active ROM , and ujs support . 05/26/2024 Encounter for screening mammogram for malignant neoplasm of breast (ICD-10 - Z12.31) per pt, she is doing MMG annually in [place]. Will bring the info in Dec 2024. [...] 03/14/2024 Other HPI ,exam assessment, plan and customer data technician done in collaboration with Maninder Spike, PA-C [...] June and is planning to go to [place] in July, and will return to [place] in 2024. 06/30/2024 Other RECOMMENDATIONS given include: [...] Details Provider Name:MAX LOPEZ, 01/18/2025 08:30:00 AM, [address] [place] [address], [phone], Provider Name:Kolton Vazquez, 04:40:00 PM, [address] [place] [address], [phone], Provider Name:Girma nance, 05/29/2025 02:00:00 PM, [address] [place] [address], [phone], Insurance Providers Payer Name Payer Address Payer Phone Subscriber Number Group Number Insured Name Patient Relationship to Insured Coverage Start Date Coverage End Date [place] Medicare Part B 9 [facility] [address] [address] [place], [place] [id number] BLANK IDA MOTLEY Self - patient is the insured 4 [employer] [facility] [address] [place], [place] [phone] [id number] IDA MOTLEY Self - patient is [...] uterus (resolved 02/04/2016) undefined 2023.15 CXR ASVDa. [id number] 7 Alcohol use -patient has 3 or [...] Reason Date(Month/Year) Hysterectomy 1986 DX syncope @ [facility] l 06/19/2024-06/23/2024 DX lt hip pain @ [facility] 06/07/2024-06/08/2024 DX fall @ [facility] ER VISIT 12/30/2023 melanoma removed from arm 02/17/2022 pt passed out 10/09/20-10/11/20 Right knee replacement 07/21/2017
--- OUTSIDE RECORDS SUMMARY | 2024-11-16 15:10 | XMS_ITS | Clinical Summary ---
[facility] Address [address] [place] [address] Care Team Providers Care Religious Activities Director Name Role Phone Charels Barrett MD Primary Care Provider Medications sodium-potassiu [...] (09/08/2023) Lb Arce MD CHART REVIEW TABS Dainella gallardo Result from Last 3 Months or Most Recently Relevant to Health Maintenance Insurance MEDICARE A & B Member Subscriber Plan / Payer (Ef fective 1998-Present) Name:Dagmar Flores Member ID:[id number] Relation to Subscriber:Self Name:Dagmar Flores Subscriber ID:[id number] Payer ID:[id number] Group ID:Not on file Type:Not on file Address: [facility] [id number] [employer] Care Teams Religious Activities Director Relationship Specialty Start Date End Date Charles Barrett MD [facility] [address] [facility] [address] [place] [address] PCP - General Family Medicine 11/01/18
--- OUTSIDE RECORDS SUMMARY | 2024-11-16 15:10 | XMS_ITS | Clinical Summary ---
Author Organization [facility] Address [address], [address] [place] [address] Care Team Providers Care Wallet Assembler Name Role Phone Charles Barrett MD Primary Care Provider +1- [phone] Social History Tobacco Use Types Packs/Day Years [...] Insurance MEDICARE [place] FEP Care Teams Wallet Assembler Relationship Specialty Start Date End Date Charles Barrett MD [address] [facility] [address] [facility] [address] [place] [address] PCP - General 06/09/19
--- OUTSIDE RECORDS SUMMARY | 2024-11-16 15:10 | XMS_ITS | Encounter Summary ---
Author Organization [employer] ([place], [place], [place], [place]) Address [address] [place] [address] Care Team Providers Care Micro Lab Analyst Name Role Phone Charles Barrett MD Primary Care Provider +1- [phone] Encounter Details Date Type Department Care Team (Late st Contact Info) Description 11/10/2019 Transcribed Document [facility] [place] [address] [place] [address] ProviderRaúl MD [address] [place] [address] Social History Tobacco Use Types Packs/Day [...] PERFORMED: Standard left heart catheterization. TECHNIQUE: A 5/6-Iranian sheath was placed in the right radial [...] factor modification and medical management are recommended. /[id number] Jarad Rodriguez MD SSL/AQ / SSL / MODL /[id number] CC: Charles Barrett Electronically signed by Francisco [facility] Conversion Epidemiology Intern Cerner at 06/23/2022 11:18 AM CDT documented in this encounter Plan of Treatment Not on file documented as of this encounter Visit Diagnoses Not on filedocumented in this encounter Care Teams Micro Lab Analyst Relationship Specialty Start Date End Date Charles Barrett MD [address] [place] [facility] [address] [place] [id number] PCP - General Family Medicine 11/19/22 documented as of this encounter
--- OUTSIDE RECORDS SUMMARY | 2024-11-16 15:11 | XMS_ITS | Encounter Summary ---
Author Organization [employer] ([place], [place], [place], [place]) Address [address] [place] [address] Care Team Providers Care Optical Scientist Name Role Phone Rekha Barrett MD Primary Care Provider +1- [phone] Encounter Details Date Type Department Care Team (Late st Contact Info) Description 11/10/2019 Transcribed Document [facility] [place] [facility] [place] [address] ProviderRaúl MD [address] [place] [address] Social History Tobacco Use Types Packs/Day [...] Gonzalez MD - 11/10/2019 6:48 PM CDT [facility] [place] [address] IDA FLORES LISSA :1950 Visit Time:11/10/2019 [...] Comments Call for follow up appointment Where: [address] [place] [address] Medications What How Much When Instructions [...] including vitamins, herbs, eye drops, creams, and ddbv-brh-uhdpxzk medicines. ??? Any problems you or family [...] tells you to take them. ??? Taking sjub-nbq-ecvzqne medicines, vitamins, herbs, and supplements. Exams and [...] 11/17/2012 Document Revised: 01/17/2019 Document Reviewed: 01/17/2019 Bit9 Patient Education ?? 2020 Ameibo. Radial Site Care This sheet gives you [...] these instructions at home: Medicines ??? Take amqr-pzh-tsffsky and prescription medicines only as told by your health care provider. Insertion site care ??? Follow instructions from your health care provider about how to take care of your insertion site. Make sure you: ? Wash your hands with soap and water before you change your bandage (dressing). If soap and water are not available, use hand evp global product leadership. ? Change your dressing as told by [...] 03/28/2011 Document Revised: 03/31/2018 Document Reviewed: 03/31/2018 Bit9 Patient Education ?? 2020 Bit9 Inc. Moderate Conscious Sedation, Adult, Care After [...] you are awake and alert. ??? Take kwot-mkt-fuyowtx and prescription medicines only as told by [...] 12/14/2013 Document Revised: 02/05/2018 Document Reviewed: 06/14/2016 ElseRadcom Patient Education ?? 2020 Bit9 Inc. Emergency Awareness and Preventative Care STROKE [...] Assistance with quitting is available by contacting 7-713-KGOT-NOW. This is a free resource providing counseling, [...] was given the opportunity to ask questions. Patient/Warper Creeler Name: Patient/Warper Creeler Signature: Relationship to Patient: Clinician/Hospital Warper Creeler Signature: Date: Electronically signed by Francisco [facility] Conversion Top Lift Scourer Cerner at 06/23/2022 11:22 AM CDT documented in this encounter Plan of Treatment Not on file documented as of this encounter Visit Diagnoses Not on filedocumented in this encounter Care Teams Optical Scientist Relationship Specialty Start Date End Date Rekha Barrett MD [address] [place] [facility] [address] [place] [address] PCP - General Family Medicine 11/19/22 documented as of this encounter
--- OUTSIDE RECORDS SUMMARY | 2024-11-16 15:11 | XMS_ITS | Encounter Summary ---
Author Organization [email or web address] ([place], [place], [place], [place]) Address [address] [place] [address] Care Team Providers Care Facilitator Name Role Phone Charles Barrett MD Primary Care Provider +1- [phone] Encounter Details Date Type Department Care Team (Late st Contact Info) Description 11/10/2019 Transcribed Document [facility] [place] [facility] [address] ProviderRaúl MD [address] [place] [address] Social History Tobacco Use Types Packs/Day [...] Source : Stated Height Entry Format : Lynx Height, Feet : 5 ft(Converted to: 152 cm, 60 Inch) Height, Inches : 0 Inch(Converted to: 0 ft 0 Inch, 0.00 cm) Clinical Height : 152.4 cm Weight Source : Standing scale Weight Entry Format : Lynx Clinical Dosing Weight : 59.55 kg Weight, Pounds : 131 lb Body Surface Area (BSA) : 1.56 m2 Body Mass Index : 25.6 kg/m2 (HI) [place] Body Weight : 45 kg Monica Stubbs [...] FAY MIRANDA, RN) Home/Environment: Lives with Spouse, ofoqkt-pa-pht. Home equipment: Glucose monitoring, INR machine. Alcohol [...] Monica Stubbs RN - 11/10/2019 13:30 EDT [place] Suicide Severity Rating Scale (C-SSRS) CSSRS Past [...] : Living will, Medical durable power of cabinet mounter (proxy) Medical Durable Power of Material Planning Analyst Name : Norberto Flores Copy Advance Directive [...] RN - 11/10/2019 13:30 EDT General Info Extension Associate Needed : No Monica Stubbs RN - 11/10/2019 21:00 EDT Preferred Name : Leilani Arrived From : Home Mode of Arrival on Unit : Ambulatory Legal Guardian : Spouse Support Person/Patient Government Teacher : Yes Support Person/Pt Rep Name : Norberto (spouse) Support Person/Pt Rep Contact Information : [phone] Want Family/Rep/Phys Notified of Admit : No Emergency Contact #1 : Norberto Flores Emergency Contact #1 Emergency Contact #1 Relationship : Emergency Contact #2 : na Emergency Contact #2 Phone Number : na Emergency Contact #2 Relationship : na Primary Language : Hong Konger Preferred Communication Mode : Verbal Communication Barrier [...] Scale Risk Level : 25-45 Medium Risk [place] Fall Interventions : Adequate lighting, Assistive devices [...] 11/10/2019 13:30 EDT Electronically signed by Francisco [facility] Conversion Therapeutic Recreation Assistant Cerner at 06/23/2022 11:10 AM CDT documented in this encounter Plan of Treatment Not on file documented as of this encounter Visit Diagnoses Not on filedocumented in this encounter Care Teams Facilitator Relationship Specialty Start Date End Date Charles Barrett MD [address] [place] [address] PCP - General Family Medicine 11/19/22 documented as of this encounter
--- OUTSIDE RECORDS SUMMARY | 2024-11-16 15:11 | XMS_ITS | Patient Health Record ---
Author Organization [facility] Address [address] [place] [address] Care Team Providers Care Asset Protection Specialist Name Role Phone Fran Hamilton Olegario Primary Care Provider Adi Hayes Unavailable [phone] Faby Bonilla Unavailable [phone] Allergies Allergen (clinical drug ingredient) Drug/Non Drug [...] For Referral Reason A - LTKA @ [facility] OP Diagnosis 1 Unilateral primary o steoarthritis, left knee (M17.12) Referral Organization [facility] Referring Provider First Name Adi Referring Provider Last Name Daniele Referring Provider Speciality Physician Referred Organization [facility] Referred Provider Adi Sanabria Referred Address [address],[place], [place],[address],[place] Referred Provider Specialty Orthopedic S urgery Procedure 1 TOTAL KNEE ARTHROPLA STY (67444) Procedure 2 CPTR-ASST DIR MS PX (67448) General Notes Farhana Lin 11/2023 11:07:52 AM [...] o steoarthritis, left knee (M17.12) Referral Organization [facility] Referring Provider First Name Faby Referring Provider Last Name Chad Referring Provider Speciality Nurse Hong keith Referred Provider [facility] Referred Provider Specialty Phuong s Referral Priority Routine Reason Start Outpatient LE physical therapy, ROM and anti-inflammatory modalities, 2-3 times per week, for 4-6 weeks, START on 03/09/24 Diagnosis 1 Unilateral primary o steoarthritis, left knee (M17.12) Referral Organization [facility] Referring Provider First Name Faby Referring Provider Last Name Chad Referring Provider Speciality Nurse Hong keith Referred Provider [facility] Referred Provider Specialty Physical Med icine and Rehabilitation General Notes Divina Quintana 09:47:50 AM >Called LVM to schedule OP PT evaluation., Divina Quintana 02/15/2024 01:16:32 PM >Pt called back, LVM that she wants to goto PT closer to home @ [place]. Referral Priority Routine Reason Continue Outpatient LE physical therapy, ROM and anti-inflammatory modalities, 2-3 times per week, for 4-6 weeks Diagnosis 1 Unilateral primary o steoarthritis, left knee (M17.12) Referral Organization [facility] Referring Provider First Name Faby Referring Provider Last Name Chad Referring Provider Speciality Nurse Hong keith Referred Provider [facility] Referred Provider Specialty Physical Med icine and Rehabilitation General Notes Kathi Bolton 2024 08:52:02 AM >referral faxed Referral Priority Routine Reason Patient is scheduled for a LTHA on 06/09/24. Patricio Chao. LCFR Dawson Diagnosis 1 Unilateral primary o steoarthritis, left hip (M16.12) Referral Organization [facility] Referring Provider First Name Faby Referring Provider Last Name Chad Referring Provider Speciality Nurse Hong keith Referred Organization [facility] Referred Provider Adi Sanabria Referred Address [address] [address],[place], [place],[address], Referred Provider Specialty Orthopedic S urgery Procedure 1 TOTAL HIP ARTHROPLAS TY (32023) General Notes Kathi Bolton 2024 10:24:35 AM >Member Status: Active Coverage, Relationship to Subscriber, Self, Other or Additional Payer Information, Payer: [employer] [facility] Referral Priority Routine Referral Appointment Date 06/09/2024 Reason Start Outpatient LE physical therapy, ROM and anti-inflammatory modalities, 2-3 times per week, for 4-6 weeks, START on 06/23/24 Diagnosis 1 Unilateral primary o steoarthritis, left hip (M16.12) Referral Organization [facility] Referring Provider First Name Faby Referring Provider Last Name Chad Referring Provider Speciality Nurse Hogn keith Referred Provider [facility] Referred Provider Specialty Physical Med icine and Rehabilitation Referral Priority Routine Referral Appointment Date 06/03/2024 Reason [facility] 2 weeks post [facility], START 06/08/24 Physical Therapy as directed for 2 weeks post surgery, START 06/08/24 Diagnosis 1 Unilateral primary o steoarthritis, left hip (M16.12) Referral Organization [facility] Referring Provider First Name Faby Referring Provider Last Name Chad Referring Provider Speciality Nurse Hong keith [facility] Referred Provider Specialty Miscellaneou s [...] osteoarthritis of the pelvic region and thigh (187610752) Unilateral primary osteoarthritis , left hip (M16.12) Active confirmed Problem Osteoarthritis of knee (330978711) Unilateral primary osteoarthritis , left knee (M17.12) Active confirmed Vital Signs Heart Rate 70 /min 04/22/2024 Height-cm 154.94 cm 07/15/2024 Blood pressure diastolic 62 mm Hg 04/22/2024 Weight-kg 61.69 kg 07/15/2024 Height 61 in 07/15/2024 Blood pressure systolic 98 mm Hg 04/22/2024 Weight 136 lbs 07/15/2024 BMI 25.69 kg/m2 07/15/2024 Encounters Encounter Location Date Provider Diagnosis [facility] [address] [address] 01/18/2024 Adi Sanabria Pain in left knee M25.562 and Unilateral primary osteoarthritis, left knee M17.12 [facility] [place] [address] [address] 02/17/2024 Faby Hudson Unilateral primary osteoarthritis, left knee M17.12 and Pain in left knee M25.562 [facility] [address] [place] [address] 02/23/2024 Faby Hudson Unilateral primary osteoarthritis, left knee M17.12 [facility] [address] [place] [address] 02/23/2024 Adi Sanabria Unilateral primary osteoarthritis, left knee M17.12 [facility] [place] [address] [address] 03/11/2024 Faby Chad Unilateral primary osteoarthritis, left knee M17.12 and Pain in left knee M25.562 [facility] [place] [address] [address] 04/11/2024 Faby Hudson Unilateral primary osteoarthritis, left knee M17.12 and Pain in left knee M25.562 [facility] [address] [address] 04/22/2024 Adi Sanabria Unilateral primary osteoarthritis, left hip M16.12 and Pain in left hip M25.552 [facility] [place] [address] [address] 05/23/2024 Faby Hudson Unilateral primary osteoarthritis, left knee M17.12 ; Pain in left knee M25.562 and Unilateral primary osteoarthritis, left hip M16.12 [facility] [place] [address] [address] 06/03/2024 Faby Chad Unilateral primary osteoarthritis, left hip M16.12 and Pain in left hip M25.552 [facility] [address] [place] [address] 06/07/2024 Faby Chad Unilateral primary osteoarthritis, left hip M16.12 [facility] [address] [place] [address] 06/07/2024 Adi Sanabria Unilateral primary osteoarthritis, left hip M16.12 [facility] [address] [address] 06/24/2024 Faby Hudson Unilateral primary osteoarthritis, left hip M16.12 and Pain in left hip M25.552 [facility] [place] [address] [address] 07/15/2024 Faby Hudson Unilateral primary osteoarthritis, left hip M16.12 and Pain in left hip M25.552 [facility] [address] [address] 11/20/2023 Adi Sanabria [facility] [place] [address] [address] 02/29/2024 Adi Sanabria [facility] [place] [address] [address] 04/08/2024 Adi Sanabria [facility] [place] [address] [address] 2024 Adi Sanabria Assessments Encounter Date Diagnosis [...] Patient will be restricted to homebound status. [facility] will be directed to assist the patient post operatively in their home startin02/24/2024 Patient will start outpatient physical therapy at [facility] on 03/09/2024 No history of DVT or [...] Patient will be restricted to homebound status. [facility] will be directed to assist the patient post operatively in their home startin06/08/24 Patient will start outpatient physical therapy at [facility] on 06/23/24 No history of DVT or [...] Details Provider Name:Faby Bonilla, 01/18/2025 10:00:00 AM, [address], [address], Insurance Providers Payer Name Payer Address Payer Phone Subscriber Number Group Number Insured Name Patient Relationship to Insured Coverage Start Date Coverage End Date Medicare of [place] [employer] [address] [address] [place] [phone] [id number] Dagmar Flores Self - patient is the insured BCBS Federal [address] [place] [address] [id number] Dagmar Flores Self - patient is [...]
--- OUTSIDE RECORDS SUMMARY | 2024-11-16 15:11 | XMS_ITS | Encounter Summary ---
Author Organization [employer] ([place], [place], [place], [place]) Address [address] [place] [address] Care Team Providers Care Private Wealth Advisor Name Role Phone Charles Barrett MD Primary Care Provider +1- [phone] Encounter Details Date Type Department Care Team (Late st Contact Info) Description 11/10/2019 Transcribed Document [facility] [place] Medicine [facility] [place] [address] ProviderRaúl MD [address] [place] [address] Social History Tobacco Use Types Packs/Day [...] including vitamins, herbs, eye drops, creams, and rycz-mue-fgzbbxz medicines. ??? Any problems you or family [...] tells you to take them. ??? Taking qwqm-cto-aomeuyj medicines, vitamins, herbs, and supplements. Exams and [...] 11/17/2012 Document Revised: 01/17/2019 Document Reviewed: 01/17/2019 MetaFLO Patient Education ? 2020 Machine Talker. Radial Site Care This sheet gives you [...] these instructions at home: Medicines ??? Take wtvj-tlb-ihpzvpc and prescription medicines only as told by your health care provider. Insertion site care ??? Follow instructions from your health care provider about how to take care of your insertion site. Make sure you: ? Wash your hands with soap and water before you change your bandage (dressing). If soap and water are not available, use hand roll forger. ? Change your dressing as told by [...] 03/28/2011 Document Revised: 03/31/2018 Document Reviewed: 03/31/2018 MetaFLO Patient Education ? 2020 MetaFLO Inc. Moderate Conscious Sedation, Adult, Care After [...] you are awake and alert. ??? Take pmfy-dez-yujzjxg and prescription medicines only as told by [...] 12/14/2013 Document Revised: 02/05/2018 Document Reviewed: 06/14/2016 ElseMTA [employer] Patient Education ? 2019 Machine Talker. documented in this encounter Plan of Treatment Not on file documented as of this encounter Visit Diagnoses Not on filedocumented in this encounter Care Teams Private Wealth Advisor Relationship Specialty Start Date End Date Charles Barrett MD [address] [facility] [address] [place] [address] PCP - General Family Medicine 11/19/22 documented as of this encounter
--- OUTSIDE RECORDS SUMMARY | 2024-11-16 15:11 | XMS_ITS | Encounter Summary ---
Author Organization [email or web address] ([place], [place], [place], [place]) Address [address] [place] [address] Care Team Providers Care Email Specialist Name Role Phone Charles Barrett MD Primary Care Provider +1- [phone] Encounter Details Date Type Department Care Team (Latest Contact Info) Description 11/03/2024 Travel Social History Tobacco Use Types Packs/Day Years Used Date Smoking Tobacco: Never Passive Smoke Exposure: Never Smokeless Tobacco: Never Alcohol Use Standard Drinks/Week Comments Yes 0 [...] Date Jarrett rded Speak language other than Honduran at home Not on file 03/27/2023 Want [...] as of this encounter Plan of Treatment Not on file documented as of this encounter Visit Diagnoses Not on filedocumented in this encounter Care Teams Email Specialist Relationship Specialty Start Date End Date Charles Barrett MD [facility] [facility] [address] [place] [address] PCP - General Family Medicine 11/19/22 documented as of this encounter
--- OUTSIDE RECORDS SUMMARY | 2024-11-16 15:11 | XMS_ITS | Encounter Summary ---
Author Organization [employer] ([place], [place], [place], [place]) Address [address] [place] [address] Care Team Providers Care Electrical Instrument Repairer Name Role Phone Charles Barrett MD Primary Care Provider +1- [phone] Encounter Details Date Type Department Care Team (Late st Contact Info) Description 11/10/2019 Transcribed Document [facility] [place] [facility] [place] [address] ProviderRaúl MD [address] [place] [address] Social History Tobacco Use Types Packs/Day [...] on filedocumented in this encounter Care Teams Electrical Instrument Repairer Relationship Specialty Start Date End Date Charles Barrett MD [address] [facility] [address] [place] [address] PCP - General Family Medicine 11/19/22 documented as of this encounter
== END 2024-11-16 23:59 | disposition home or self-care (01) ==
LOC: RAD 15:04
PROVIDERS: PCP Family Medicine; Visit Provider Family Medicine
DX: Z12.31 Encounter for screening mammogram for malignant neoplasm of breast (principal); R92.323 Mammographic fibroglandular density, bilateral breasts
CPT/HCPCS: 77063; 77067